=== PATIENT | male | born 1965 | race Caucasian/White ===

== ENCOUNTER 2016-05-26 11:18 | Inpatient (IN) | payer OTHER ==
[~2016-05-26 11:18] MED LIST: ALPR.25 PO; AMLO10 PO; DIFL200T PO; DOXY100C PO; HYDR-3516 PO; IRONCAP2 PO; LACTG PO; LISI-515 PO; VITA100T50 PO
[2016-05-26] MEDS ORDERED: SODIUM CHLOR 0.9% 1000 ML INJ 1,000 ML IV SCH (14:59)
[2016-05-26] MEDS ORDERED: ACETAMINOPHEN/HYDROcodone 325 MG/5 MG TAB PO PRN ×2 (15:00→20:00)
[2016-05-26] MEDS ORDERED: SODIUM CHLORIDE 0.9% FLUSH 5 ML FLUSH FLUSH PRN (15:00)
[2016-05-26] MEDS ORDERED: NALOXONE HCL 0.4 MG/ML AMP IV PRN (15:00)
[2016-05-26] MEDS ORDERED: ACETAMINOPHEN 325 MG TAB PO PRN (15:00)
[2016-05-26] MEDS ORDERED: ALPRAZolam 0.25 MG TAB PO PRN (15:00)
[2016-05-26] MEDS ORDERED: TEMAZEPAM 15 MG CAP PO PRN (15:00)
[2016-05-26 15:15] VITALS: BP 166/98; PULSE 93; RESP 16; TEMP 97; O2SAT 100
[2016-05-26] MEDS: LACTOBACILLUS ACIDOPHILUS 1 GM PACKET PO SCH ×2 (17:36→20:38)
--- NOTE | 2016-05-26 18:12 | HHI.HP ---
[facility] Primary Care Physician No Primary Care Physician Admission Diagnosis Diagnoses: (1) Hematuria (2) Urinary retention (3) Invasive carcinoma of urinary bladder Chief Complaint: Urinary retention, hematuria Travel History International Travel<30 Days: No Contact w/Intl Traveler <30 Da: No History of Present Illness 50-year-old male with a medical history significant for bladder cancer undergoing chemotherapy. The patient has an indwelling Zuniga catheter. He presented to his oncologist office earlier today and was sent to the hospital. The patient reports that he was not having any urine in the bag earlier this morning. He didn't notice jad blood coming out of the bag. He was also experiencing significant lower abdominal pain during this time. The patient denies any fevers or chills. Of note he was admitted to the hospital 10 days ago for jad hematuria and was found to have a UTI. Urine culture grew Breanna and coag negative staph. He was treated with vancomycin and Diflucan. He is currently on a 10 out of 14 days course of doxycycline and Diflucan. Since arrival to the hospital, he is no longer having blood clot in the urine. He is now draining more urine but it is still dark. He denies lightheadedness or heart palpitations. I discussed the case with his oncologist, Dr. Lee who requested consultation with urology. Review of Systems Constitutional: DENIES: Fever, Chills Endocrine: DENIES: Polyuria Eyes: DENIES: Diplopia Ears, nose, mouth, throat: DENIES: Oral lesions Respiratory: DENIES: Cough, Shortness of breath Cardiovascular: DENIES: Chest pain, Dyspnea on Exertion Gastrointestinal: DENIES: Nausea, Vomiting Genitourinary: COMPLAINS OF: Hematuria Musculoskeletal: COMPLAINS OF: Back pain Integumentary: DENIES: Rash Neurologic: DENIES: Headache Psychiatric: DENIES: Mood changes Past Family Social History Past Medical History Bladder CACurrently undergoing chemotherapy with Dr. Lee. Hypertension History of spinal tumorabout 20 years ago. Status post resection. No chemotherapy. No radiation. Neurogenic bladder Past Surgical History Spinal tumor resection Bladder resection Cystoscopies Reported Medications Reported Meds & Active Scripts Active Diflucan (Fluconazole) 200 Mg Tab 200 Mg PO DAILY Doxycycline Hyclate 100 Mg Cap 100 Mg PO BID Lisinopril 20 Mg Tab 20 Mg PO BID 30 Days Floranex (Lactobacillus Acidophilus) 1 Gm Pkt 1 Gm PO QID 14 Days Hydrocodone-Acetaminophen 5-325 mg Tab 1 Tab PO Q6HR PRN Xanax (Alprazolam) 0.25 Mg Tab 0.25 Mg PO Q8H PRN Norvasc (Amlodipine Besylate) 10 Mg Tab 10 Mg PO DAILY Reported Vitamin K (Phytonadione) 100 Mcg Tab 100 Mcg PO DAILY Iron Complex (Iron Combinations) 1 Cap Cap 1 Cap PO DAILY Allergies: Coded Allergies: No Known Allergies (Unverified , 05/09/16) Family History Patient's father has a history of lymphoma. Social History Denies current use of tobacco, alcohol, or illicit drugs. He is a former smoker but reportedly quit after diagnosis of bladder cancer. Physical Exam Vital Signs Vital Signs Date Time Temp Pulse Resp B/P Pulse Ox O2 Delivery O2 Flow Rate FiO2 05/26/16 15:15 97.0 93 16 166/98 100 Physical Exam CONSTITUTIONAL/GENERAL: This is an adequately nourished patient, in no apparent distress. Vital signs reviewed SKIN: No jaundice, rashes, or concerning lesions. Not diaphoretic. HEAD: Atraumatic. Normocephalic. EYES: Pupils equal and round and reactive. Extra ocular motions are intact. No scleral icterus. No injection or drainage. ENT: Hearing grossly normal. Nose without drainage. Throat without visible erythema, exudates, masses, or lesions. NECK: Trachea midline. Neck is supple, non-tender. No palpable thyroid enlargement or nodularity. CARDIOVASCULAR: Normal rate and regular rhythm without murmurs, gallops, or rubs. No JVD. Peripheral pulses 2+ and symmetric. RESPIRATORY/CHEST: Symmetric, unlabored respirations. Breath sounds equal and clear to auscultation bilaterally. No wheezes, crackles, rales, or rhonchi. GASTROINTESTINAL: Abdomen soft, non-tender, non-distended. No hepato- splenomegaly, or palpable masses. No guarding. Bowel sounds present. : Zuniga catheter in place. Draining dark rahul urine. Bag has some old blood clots. MUSCULOSKELETAL: Extremities without clubbing, cyanosis, or edema. No joint tenderness or effusion noted. No calf tenderness. No mottling or clubbing. NEUROLOGICAL: Awake and alert. Motor and sensory grossly within normal limits. Follows commands. Move all extremities spontaneously. No focal deficits. PSYCHIATRIC: No obvious mood problems. No apparent hallucinations or other psychotic thought process. Assessment and Plan Assessment and Plan 50 year old male with indwelling Zuniga secondary to bladder cancer being admitted for recurrent hematuria: Jad hematuria: Appear to be improving. Nursing unable to irrigate the bladder due to the type of catheter. DW RN to monitor output and notify Urology is hematuria returns. - Urology consulted for assistance. Monitor closely. - Will obtain serial H&H every 8 hours. H&H yesterday was stable. - Supportive care with IVF. Monitor I/O Complicated urinary tract infection: Patient currently getting treated. No clear evidence of worsening infection. - Continue doxycycline and Diflucan. Day 10 out of 14 - Repeat a urinalysis and culture if indicated. Bladder cancer: Patient undergoing chemotherapy treatment. - Consult oncologist, Dr. Lee. Hypertension: - Continue lisinopril and amlodipine. Chronic back pain and Anxiety: Continue [place] and Xanax as needed. GI prophylaxis: Stool softener PRN constipation. DVT PPx: SCDs. Discussed Condition With Dr. Lee and RN Physician Certification 2 Midnight Certification Type: Admission for Inpatient Services Order for Inpatient Services The services are ordered in accordance with Medicare regulations or non- Medicare payer requirements, as applicable. In the case of services not specified as inpatient-only, they are appropriately provided as inpatient services in accordance with the 2-midnight benchmark. Estimated LOS (days): 3 days is the estimated time the patient will need to remain in the hospital, assuming treatment plan goals are met and no additional complications. Post-Hospital Plan: Home Sukh Krishna MD May 26, 2016 18:12
--- NOTE | 2016-05-26 19:16 | MB ---
cc: SHAYNE KRISHNA MD, RUBY ANNE E. M.D. DATE OF CONSULTATION 05/26/16 [address] Shayne Krishna. CHIEF COMPLAINT Dr. Krishna requests a consultation for Mr. Henderson regarding locally advanced bladder cancer associated with new gross hematuria. HISTORY OF PRESENT ILLNESS Mr. Henderson is a 50-year-old man with history of neurogenic bladder diagnosed with locally advanced muscle invasive bladder cancer with suspected lymph node involvement. Right pelvic lymph node biopsy, however was nondiagnostic. He was showing response to perioperative/neoadjuvant chemotherapy. He was tolerating it well. His course was complicated by hematuria after a catheter manipulation and was admitted to the hospital on May 02 and was discharged May 17. His hospital course was complicated by hematuria requiring bladder irrigation. He was diagnosed with urinary tract infection with Breanna albicans and staph epidermidis. He was placed on antibiotic therapy and discharged home on doxycycline and Diflucan. Mr. Henderson was seen in clinic yesterday on May 25, 2016. He was due for his next cycle of chemotherapy. However, he was still on his antibiotic therapy. He also was feeling unwell. His hematology recovery seems to be apparent. He was not having hematuria at the time. He had a hemoglobin of 9.5. White count was slightly elevated. Creatinine slightly elevated at 1.29. He had good urine output. Blood cultures and urine cultures were repeated. On the morning of admission, Mr. Henderson complained of worsened pain. It woke him up at four in the morning. He was unable to get comfortable despite the oxycodone. He attributed it to his non Tylenol containing oxycodone. He had nausea, vomiting. He had abdominal pain and he started to see a tinge of blood in his urine and subsequently developed gross hematuria and became oliguric by the time he was seen in clinic in the late morning. In light of the gross hematuria and acute symptoms, his hospital admission was coordinated with Dr. Krishna. His urologist was called. However, Dr. Lee has been away. A call was answered by Dr. Greg Carter. However, Dr. aCrter's office remarked the Dr. Rowan was alumni relations manager on service at the hospital today. Mr. Henderson was given IV fluid hydration antiemetic therapy and pain medication pending his admission. He denies any fever at home. He has a decrease in appetite. He feels unwell. He has a lot of discomfort from his back and his catheter. He denies any headaches, vision changes, no bowel issue. She was quite tachycardiac at the time of evaluation. PAST MEDICAL HISTORY 1. Neurogenic bladder 2. Muscle invasive bladder cancer, 3. Questionable lymph node involvement 4. Chemotherapy induced anemia, 5. Mild renal insufficiency 6. Iron deficiency anemia, 7. Chronic pain. PAST SURGICAL HISTORY 1. Laminectomy 2. Transurethral bladder irrigation 3. Cystoscopy 4. Port placement. FAMILY HISTORY Father had lymphoma. Mother is alive and well. SOCIAL HISTORY Smokes a pack a day. Denies any alcohol or illicit drug use. ALLERGIES NO KNOWN DRUG ALLERGIES. CURRENT MEDICATIONS Include 1. Amlodipine 2. Lisinopril 3. Doxycycline 4. Diflucan 5. Lactinex. 6. Alprazolam 7. Restoril PHYSICAL EXAMINATION VITAL SIGNS: Temperature 97.0, heart rate 93, respiratory rate 16, blood pressure 166/98. His heart rate was in the 130s on admission to the clinic. HEENT: Pupils are round, reactive to light and accommodations. Conjunctivae is pink. Oropharynx is dry. He was mildly hyperemic. NECK: Supple. LUNGS: Clear to auscultation. CARDIOVASCULAR: Tachycardia. ABDOMEN: Benign. Some tenderness in the suprapubic area. EXTREMITIES: Lower extremity with trace edema. LABORATORY DATA White blood cell count 13.0, hemoglobin of 9.5, BUN of 10, creatinine 1.29 from June 04 ASSESSMENT/PLAN Ms. Henderson is a 50-year-old man with history of neurogenic bladder diagnosed invasive bladder cancer receiving perioperative chemotherapy. His course was complicated by urinary tract infection and his chemotherapy has been placed on hold. Mr. Henderson is admitted acutely for gross hematuria. His case was discussed with Dr. Carter who plans to change his catheter. Bladder irrigation is being planned. His renal function will be monitored. He will be transfused for a hemoglobin less than 8 or symptoms. Antiemetic therapy support will be provided. He is appearing to clear his urinary tract infection as his 24 culture from the urine was negative so far. We will monitor closely for fevers. His Diflucan and doxycycline continue as planned. Continue supportive treatment. We plan to support him until the hematuria is resolved and we can initiate and continue preoperative chemotherapy. His acute problem of his hydronephrosis hematuria will be addressed. Pain medication will be optimized. His blood pressure will be monitored. MD MAYE Nunez/ /6:38 PM /6:59 PM
[2016-05-26 20:00] VITALS: BP 153/86; PULSE 94; RESP 18; TEMP 98.1; O2SAT 100
[2016-05-26] MEDS: LISINOPRIL 20 MG TAB PO SCH (20:31)
[2016-05-26] MEDS: ACETAMINOPHEN/HYDROcodone 325 MG/10 MG TAB PO PRN (20:32)
[2016-05-26] MEDS: FLUCONAZOLE 200 MG TAB PO SCH (20:32)
[2016-05-26] MEDS: DOXYCYCLINE HYCLATE 100 MG CAP PO SCH (20:33)
[2016-05-26] MEDS: SODIUM CHLORIDE 0.9% FLUSH 5 ML FLUSH FLUSH SCH (20:33)
[2016-05-26 21:42] LABS: REVIEW FLAG FINAL
[2016-05-27] VITALS (9 sets, daily range): BP systolic 131–167; BP diastolic 71–100; PULSE 78–88; RESP 16–17; TEMP 95.2–98.6; O2SAT 94–100
[2016-05-27] MEDS: ACETAMINOPHEN/HYDROcodone 325 MG/10 MG TAB PO PRN ×5 (04:36→21:59)
[2016-05-27 07:13] LABS: AUTOMATED NEUTROPHIL # 5.8 TH/MM3 (1.8-7.7); BASOPHIL % 0.5 % (0.0-2.0); EOSINOPHIL # 0.2 TH/MM3 (0-0.4); EOSINOPHIL % 2.5 % (0.0-4.0); LYMPH % 18.2 % (9.0-44.0); LYMPHOCYTE # 1.5 TH/MM3 (1.0-4.8); MEAN CELL VOLUME 90.6 FL (80.0-100.0); MEAN CORPUSCULAR HEMOGLOBIN 31.2 PG (27.0-34.0); MEAN CORPUSCULAR HGB CONC 34.4 % (32.0-36.0); MONO % 8.6 % (0.0-8.0); NEUT % 70.2 % (16.0-70.0); PLATELET COUNT 121 TH/MM3 (150-450); RED BLOOD COUNT 2.23 MIL/MM3 (4.50-5.90); RED CELL DISTRIBUTION WIDTH 18.5 % (11.6-17.2); WHITE BLOOD COUNT 8.3 TH/MM3 (4.0-11.0)
[2016-05-27 07:29] LABS: BICARBONATE 26.9 MEQ/L (21.0-32.0); POTASSIUM 3.6 MEQ/L (3.5-5.1)
[2016-05-27 08:00] LABS: HEMATOCRIT 20.2 % (39.0-51.0); HEMO FLAGS AUTO DIFF
[2016-05-27] MEDS: SODIUM CHLORIDE 0.9% FLUSH 5 ML FLUSH FLUSH SCH ×2 (08:01→19:22)
[2016-05-27] MEDS: LACTOBACILLUS ACIDOPHILUS 1 GM PACKET PO SCH ×4 (08:01→19:21)
[2016-05-27] MEDS: LISINOPRIL 20 MG TAB PO SCH ×2 (08:01→19:25)
[2016-05-27] MEDS: FLUCONAZOLE 200 MG TAB PO SCH (08:01)
[2016-05-27] MEDS: DOXYCYCLINE HYCLATE 100 MG CAP PO SCH ×2 (08:01→19:21)
[2016-05-27 08:52] LABS: SCAN/DIFF AUTO DIFF CONFIRMED
[2016-05-27 08:53] LABS: PLATELET ESTIMATE SMEAR LOW (NORMAL); PLATELET MORPHOLOGY NORMAL (NORMAL)
[2016-05-27] MEDS ORDERED: FLUCONAZOLE 200 MG TAB PO SCH (09:00)
[2016-05-27] MEDS ORDERED: [UNRECOGNIZED DRUG - OTHER] PO SCH (09:00)
[2016-05-27] MEDS ORDERED: VITAMIN K 100 MCG PO SCH (09:00)
[2016-05-27] MEDS ORDERED: PHYTONADIONE 100 MCG PO SCH (09:00)
[2016-05-27] MEDS ORDERED: IRON COMBINATIONS PO SCH (09:00)
[2016-05-27] MEDS ORDERED: SODIUM CHLOR 0.9% 250 ML INJ 250 ML IV ONE (10:00)
--- NOTE | 2016-05-27 10:13 | HHI.PR ---
Subjective Remarks Patient seen in follow-up for hematuria, bladder cancer, UTI. He reports that his urine is draining better. Hematuria significantly improved. Urine clearing up. His H&H dropped to 6.9/20.2. And also occasional heart palpitation. Objective Vitals Vital Signs Date Time Temp Pulse Resp B/P Pulse Ox O2 Delivery O2 Flow Rate FiO2 05/27/16 08:00 97.8 85 16 159/100 94 05/27/16 06:01 20 05/27/16 04:00 97.8 88 17 146/78 96 05/27/16 00:00 98.3 83 17 131/77 96 05/26/16 20:00 98.1 94 18 153/86 100 05/26/16 15:15 97.0 93 16 166/98 100 I/O 05/26/16 05/26/16 05/26/16 05/27/16 05/27/16 05/27/16 07:00 15:00 23:00 07:00 15:00 23:00 Intake Total 1503 ml Output Total 1525 ml 950 ml Balance -1525 ml 553 ml Intake IV Total 1503 ml Output Urine Total 1525 ml 950 ml # Bowel Movements 0 Result Diagram: 05/27/16 0440 05/27/16 0440 Objective Remarks GENERAL: This is a well-nourished, well-developed patient, in no apparent distress. CARDIOVASCULAR: Tachycardic in the 105, regular rhythm without murmurs, gallops , or rubs. RESPIRATORY: Good respiratory efforts. Breath sounds equal and clear to auscultation bilaterally. GASTROINTESTINAL: Abdomen soft, non-tender, non-distended. Normal active bowel sounds MUSCULOSKELETAL: Extremities without cyanosis, or edema. NEURO: Alert & Oriented x4 to person, place, time, situation. Moves all ext x4 PSYCH: Appropriate mood and affect. A/P Problem List: (1) Hematuria ICD Code: R31.9 Status: Resolved (2) Urinary retention ICD Code: R33.9 Status: Acute (3) Invasive carcinoma of urinary bladder ICD Code: C67.9 Status: Acute Assessment and Plan 50 year old male with indwelling Zuniga secondary to bladder cancer being admitted for recurrent hematuria: Sadiq hematuria: Resolving. -Appreciate urology following. Continue with Zuniga. Per urology patient should use a bigger drainage bag at home. Outpatient follow-up with Dr. Lee as scheduled. - Supportive care with IVF. Monitor I/O Anemia of acute blood loss: Secondary to above which is improving. - We'll transfuse 2 units of PRBC. Follow-up H&H in the morning. Acute renal insufficiency: Likely secondary to previous obstruction and volume depletion/anemia. - Start IV fluid. Follow BMP in the morning. Complicated urinary tract infection: Patient currently getting treated. No clear evidence of worsening infection. - Continue doxycycline and Diflucan. Day 11 out of 14 Bladder cancer: Patient undergoing chemotherapy treatment. -Appreciate oncologist, Dr. Lee following. Plan to resume chemotherapy once he is over his current acute illness. Hypertension: - Continue lisinopril and amlodipine. Chronic back pain and Anxiety: Continue [place] and Xanax as needed. GI prophylaxis: Stool softener PRN constipation. DVT PPx: SCDs. Sukh Krishna MD May 27, 2016 10:13
--- NOTE | 2016-05-27 10:15 | PD.CONS ---
HPI Service Urology Consult Requested By Primary Care Physician No Primary Care Physician Diagnosis: (1) Hematuria ICD Code: R31.9 (2) Urinary retention ICD Code: R33.9 (3) Invasive carcinoma of urinary bladder ICD Code: C67.9 History of Present Illness 50 year-old gentleman with recent diagnosis of locally advanced muscle invasive bladder cancer with suspected lymph node involvement who is presently undergoing neoadjuvant chemotherapy prior to planned radical cystectomy by Dr. Eulogio Lee. Patient has been managed with an indwelling Zuniga catheter and has had problems with recurrent hematuria since his diagnosis was made. Patient admitted for a poorly draining Zuniga catheter and anemia exacerbated by the hematuria. Patient was also recently diagnosed with a urinary tract infection that included Breanna albicans and Staphylococcus epididymis and is presently on a regimen of doxycycline and Diflucan. At the time of consultation the hematuria had resolved and Zuniga catheter was draining rahul colored urine without clots. He has had 2 units of packed red blood cells ordered for his low hematocrit of 20.2 Review of Systems Constitutional: DENIES: Fever, Chills Genitourinary: COMPLAINS OF: Hematuria Musculoskeletal: DENIES: Back pain Past Family Social History Past Medical History Muscle invasive bladder cancer Neurogenic bladder Anemia Mild renal insufficiency Past Surgical History Status post open cystotomy with clot evacuation and placement of suprapubic catheter. Status post laminectomy Status post port placement Reported Medications Refer to EMR Allergies: Coded Allergies: No Known Allergies (Unverified , 05/09/16) Active Ordered Medications Refer to EMR Family History Father with history lymphoma Social History Smoker one pack per day Denies alcohol or illicit drug abuse Physical Exam Vital Signs Vital Signs Date Time Temp Pulse Resp B/P Pulse Ox O2 Delivery O2 Flow Rate FiO2 05/27/16 08:00 97.8 85 16 159/100 94 05/27/16 06:01 20 05/27/16 04:00 97.8 88 17 146/78 96 05/27/16 00:00 98.3 83 17 131/77 96 05/26/16 20:00 98.1 94 18 153/86 100 05/26/16 15:15 97.0 93 16 166/98 100 Physical Exam GENERAL: This is a well-nourished, well-developed patient, in no apparent distress. SKIN: No rashes, ecchymoses or lesions. Cool and dry. HEAD: Atraumatic. Normocephalic. No temporal or scalp tenderness. EYES: Pupils equal round and reactive. Extraocular motions intact. No scleral icterus. No injection or drainage. ENT: Nose without bleeding, purulent drainage or septal hematoma. Throat without erythema, tonsillar hypertrophy or exudate. Uvula midline. Airway patent. NECK: Trachea midline. No JVD or lymphadenopathy. Supple, nontender, no meningeal signs. GASTROINTESTINAL: Abdomen soft, non-tender, nondistended. No hepato-splenomegaly , or palpable masses. No guarding. : Zuniga catheter in place draining rahul urine, bladder not distended. MUSCULOSKELETAL: Extremities without clubbing, cyanosis, or edema. No joint tenderness, effusion, or edema noted. No calf tenderness. Negative Homans sign bilaterally. NEUROLOGICAL: Awake and alert. Cranial nerves II through XII intact. Motor and sensory grossly within normal limits. Five out of 5 muscle strength in all muscle groups. Normal speech. Laboratory Laboratory Tests Test 05/26/16 05/27/16 20:32 04:40 Hemoglobin 7.3 6.9 Hematocrit 21.0 20.2 White Blood Count 8.3 Red Blood Count 2.23 Mean Corpuscular Volume 90.6 Mean Corpuscular Hemoglobin 31.2 Mean Corpuscular Hemoglobin 34.4 Concent Red Cell Distribution Width 18.5 Platelet Count 121 Mean Platelet Volume 7.3 Neutrophils (%) (Auto) 70.2 Lymphocytes (%) (Auto) 18.2 Monocytes (%) (Auto) 8.6 Eosinophils (%) (Auto) 2.5 Basophils (%) (Auto) 0.5 Neutrophils # (Auto) 5.8 Lymphocytes # (Auto) 1.5 Monocytes # (Auto) 0.7 Eosinophils # (Auto) 0.2 Basophils # (Auto) 0.0 CBC Comment AUTO DIFF Differential Comment AUTO DIFF CONFIRMED Platelet Estimate LOW Platelet Morphology Comment NORMAL Sodium Level 146 Potassium Level 3.6 Chloride Level 110 Carbon Dioxide Level 26.9 Anion Gap 9 Blood Urea Nitrogen 14 Creatinine 1.50 Estimat Glomerular Filtration 50 Rate Random Glucose 95 Calcium Level 8.4 Result Diagram: 05/27/1643905/27/16439 Assessment and Plan Assessment and Plan Urologic impression: #1 bladder cancer with suspected lymph node involvement #2 recurrent gross hematuria now resolving Recommendations: #1 continue with Zuniga catheter to gravity drainage #2 advised patient to use a large drainage bag while at home to facilitate bladder emptying #3 continue with neoadjuvant chemotherapy #4 continue with Diflucan and doxycycline until full course of therapy completed #5 office follow up with Dr. Lee as previously arranged Greg Carter MD May 27, 2016 10:15
--- NOTE | 2016-05-27 11:31 | PD.ONC.PN ---
Subjective Subjective Remarks Afebrile overnight. Patient resting comfortably. He denies nausea. The hematuria has significantly improved. Objective Data Date Time Temp Pulse Resp B/P Pulse Ox O2 Delivery O2 Flow Rate FiO2 05/27/16 08:00 97.8 85 16 159/100 94 05/27/16 06:01 20 05/27/16 04:00 97.8 88 17 146/78 96 05/27/16 00:00 98.3 83 17 131/77 96 05/26/16 20:00 98.1 94 18 153/86 100 05/26/16 15:15 97.0 93 16 166/98 100 05/27/16 05/27/16 05/27/16 07:00 15:00 23:00 Intake Total 1503 ml Output Total 950 ml Balance 553 ml Result Diagram: 05/27/160 05/27/16 044 Laboratory Results Laboratory Tests Test 05/26/16 05/27/16 20:32 04:40 Hemoglobin 7.3 GM/DL 6.9 GM/DL Hematocrit 21.0 % 20.2 % White Blood Count 8.3 TH/MM3 Red Blood Count 2.23 MIL/MM3 Mean Corpuscular Volume 90.6 FL Mean Corpuscular Hemoglobin 31.2 PG Mean Corpuscular Hemoglobin 34.4 % Concent Red Cell Distribution Width 18.5 % Platelet Count 121 TH/MM3 Mean Platelet Volume 7.3 FL Neutrophils (%) (Auto) 70.2 % Lymphocytes (%) (Auto) 18.2 % Monocytes (%) (Auto) 8.6 % Eosinophils (%) (Auto) 2.5 % Basophils (%) (Auto) 0.5 % Neutrophils # (Auto) 5.8 TH/MM3 Lymphocytes # (Auto) 1.5 TH/MM3 Monocytes # (Auto) 0.7 TH/MM3 Eosinophils # (Auto) 0.2 TH/MM3 Basophils # (Auto) 0.0 TH/MM3 CBC Comment AUTO DIFF Differential Comment AUTO DIFF CONFIRMED Platelet Estimate LOW Platelet Morphology Comment NORMAL Sodium Level 146 MEQ/L Potassium Level 3.6 MEQ/L Chloride Level 110 MEQ/L Carbon Dioxide Level 26.9 MEQ/L Anion Gap 9 MEQ/L Blood Urea Nitrogen 14 MG/DL Creatinine 1.50 MG/DL Estimat Glomerular Filtration 50 ML/MIN Rate Random Glucose 95 MG/DL Calcium Level 8.4 MG/DL Administered Medications Medications (Trade) Dose Ordered Sig/Ambika Route PRN Reason Start Time Stop Time Status Last Admin Dose Admin Amlodipine Besylate (Norvasc) 10 mg DAILY PO 05/27/16 09:00 05/27/16 08:01 Lactobacillus Acidophilus (Lactinex Pkt) 1 gm QID PO 05/26/16 18:00 05/27/16 08:01 Lisinopril (Prinivil) 20 mg BID PO 05/26/16 21:00 05/27/16 08:01 IV Flush (NS Flush) 2 ml BID FLUSH 05/26/16 21:00 05/27/16 08:01 Doxycycline Hyclate (Vibramycin) 100 mg BID PO 05/26/16 21:00 05/27/16 08:01 Fluconazole (Diflucan) 200 mg DAILY PO 05/26/16 18:30 05/27/16 08:01 Acetaminophen/ Hydrocodone Bitart ([place] 10-325 Mg) 1 tab Q4H PRN PO PAIN GREATER THAN 5 05/26/16 19:00 05/27/16 08:17 Objective Remarks GENERAL: Middle aged male, lying in bed in [facility]. SKIN: Warm and dry. HEAD: Normocephalic. EYES: No scleral icterus. No injection or drainage. NECK: Supple, trachea midline. CARDIOVASCULAR: Regular rate and rhythm RESPIRATORY: Breath sounds equal bilaterally. No accessory muscle use. GASTROINTESTINAL: Abdomen soft, non-tender, nondistended. EXTREMITIES: No cyanosis NEUROLOGICAL: No obvious focal deficit. Awake, alert, and oriented x3. blanc[place] to gravity: bag filled with rahul colored urine. Assessment/Plan Problem List: (1) Invasive carcinoma of urinary bladder Status: Acute Plan: --plan to resume chemotherapy once UTI resolved. --history of neurogenic bladder diagnosed invasive bladder cancer receiving perioperative chemotherapy. --course was complicated by urinary tract infection and his chemotherapy has been placed on hold. (2) Anemia due to blood loss Status: Acute Plan: 05/27/16: agree with transfusion 1 unit pRBC today --transfuse for hemoglobin less than 8 or symptoms (3) Urinary tract infection Status: Acute Plan: --on Doxycycline and Diflucan --most recent urine culture from 05/25/16 is without growth. Assessment 50y/o male with locally advanced bladder cancer associated with new gross hematuria, hematuria now improving. Plan 1. continue doxycycline + Diflucan 2. monitor CBC, agree with 1 unit pRBC 3. supportive care. Attending Statement The exam, history, and the medical decision-making described in the above note were completed with the assistance of the mid-level provider. I reviewed and agree with the findings presented. I attest that I had a [id number] encounter with the patient on the same day, and personally performed and documented my assessment and findings in the medical record. Pt seen and examined. Hematuria resolved, tolerating blood transfusion. Pain controlled. IVF hydration on going. Follow over night, anticipate DC tomorrow. SAIRA DONN. Jesika Wilkes May 27, 2016 11:31 Idalia Lee MD May 27, 2016 18:14
[2016-05-27] MEDS: D5-1/2 NS + KCL 10 MEQ INJ 1,000 ML IV SCH (19:22)
[2016-05-28] VITALS: BP 147/78; PULSE 85; RESP 16; TEMP 97.6; O2SAT 98
[2016-05-28 01:38] LABS: HEMATOCRIT 24.2 % (39.0-51.0); MEAN CELL VOLUME 87.7 FL (80.0-100.0); MEAN CORPUSCULAR HEMOGLOBIN 30.9 PG (27.0-34.0); MEAN CORPUSCULAR HGB CONC 35.3 % (32.0-36.0); PLATELET COUNT 121 TH/MM3 (150-450); RED BLOOD COUNT 2.76 MIL/MM3 (4.50-5.90); RED CELL DISTRIBUTION WIDTH 17.6 % (11.6-17.2); REVIEW FLAG FINAL; WHITE BLOOD COUNT 9.1 TH/MM3 (4.0-11.0)
[2016-05-28 01:59] LABS: BICARBONATE 30.3 MEQ/L (21.0-32.0); POTASSIUM 3.7 MEQ/L (3.5-5.1)
[2016-05-28 03:02] VITALS: BP 136/80; PULSE 82; RESP 17; TEMP 96.9; O2SAT 96
[2016-05-28] MEDS: D5-1/2 NS + KCL 10 MEQ INJ 1,000 ML IV SCH ×2 (03:13→11:06)
[2016-05-28] MEDS: ACETAMINOPHEN/HYDROcodone 325 MG/10 MG TAB PO PRN ×4 (03:13→19:17)
[2016-05-28 08:00] VITALS: BP 163/93; PULSE 84; RESP 18; TEMP 99.3; O2SAT 99
[2016-05-28] MEDS: SODIUM CHLORIDE 0.9% FLUSH 5 ML FLUSH FLUSH SCH ×2 (08:50→19:18)
[2016-05-28] MEDS: LISINOPRIL 20 MG TAB PO SCH ×2 (08:52→19:33)
[2016-05-28] MEDS: DOXYCYCLINE HYCLATE 100 MG CAP PO SCH ×2 (08:52→19:17)
[2016-05-28] MEDS: FLUCONAZOLE 200 MG TAB PO SCH (08:52)
--- NOTE | 2016-05-28 10:46 | PD.ONC.PN ---
Subjective Subjective Remarks Hematuria this AM. Still feels tired. Tolerated transfusion. Objective Data Date Time Temp Pulse Resp B/P Pulse Ox O2 Delivery O2 Flow Rate FiO2 05/28/16 08:00 99.3 84 18 163/93 99 05/28/16 04:40 19 05/28/16 03:02 96.9 82 17 136/80 96 05/28/16 00:00 97.6 85 16 147/78 98 05/27/16 19:02 97.8 87 17 153/82 96 05/27/16 17:15 97.6 88 16 167/83 99 05/27/16 16:44 97.6 87 16 150/84 100 05/27/16 14:15 98.6 88 16 143/71 98 05/27/16 13:51 98.3 88 16 155/77 98 05/27/16 12:00 95.2 78 16 151/77 99 05/28/16 05/28/16 05/28/16 07:00 15:00 23:00 Intake Total 1084 ml Output Total 1200 ml 1000 ml Balance -116 ml -1000 ml Result Diagram: 05/28/16 0050 05/28/16 0050 Laboratory Results Laboratory Tests Test 05/27/16 05/28/16 11:21 00:50 Blood Type B POSITIVE Antibody Screen NEGATIVE Crossmatch Leukocyte-Reduced Red Blood Cells Blood Bank Comment White Blood Count 9.1 TH/MM3 Red Blood Count 2.76 MIL/MM3 Hemoglobin 8.5 GM/DL Hematocrit 24.2 % Mean Corpuscular Volume 87.7 FL Mean Corpuscular Hemoglobin 30.9 PG Mean Corpuscular Hemoglobin 35.3 % Concent Red Cell Distribution Width 17.6 % Platelet Count 121 TH/MM3 Mean Platelet Volume 7.3 FL Sodium Level 147 MEQ/L Potassium Level 3.7 MEQ/L Chloride Level 110 MEQ/L Carbon Dioxide Level 30.3 MEQ/L Anion Gap 7 MEQ/L Blood Urea Nitrogen 14 MG/DL Creatinine 1.63 MG/DL Estimat Glomerular Filtration 45 ML/MIN Rate Random Glucose 92 MG/DL Calcium Level 8.4 MG/DL Administered Medications Medications (Trade) Dose Ordered Sig/Ambika Route PRN Reason Start Time Stop Time Status Last Admin Dose Admin Alprazolam (Xanax) 0.25 mg Q8H PRN PO ANXIETY 05/26/16 15:00 05/27/16 18:20 Amlodipine Besylate (Norvasc) 10 mg DAILY PO 05/27/16 09:00 05/28/16 08:52 Lactobacillus Acidophilus (Lactinex Pkt) 1 gm QID PO 05/26/16 18:00 05/27/16 19:21 Lisinopril (Prinivil) 20 mg BID PO 05/26/16 21:00 05/28/16 08:52 IV Flush (NS Flush) 2 ml BID FLUSH 05/26/16 21:00 05/27/16 19:22 Doxycycline Hyclate (Vibramycin) 100 mg BID PO 05/26/16 21:00 05/28/16 08:52 Fluconazole (Diflucan) 200 mg DAILY PO 05/26/16 18:30 05/28/16 08:52 Acetaminophen/ Hydrocodone Bitart 1 tab 1 tab Q4H PRN PO PAIN GREATER THAN 5 05/26/16 19:00 05/28/16 08:50 Potassium Chloride/Dextrose/ Sod Cl (D5-1/2 NS + KCl 10 Meq Inj) 1,000 ml @ 125 mls/hr Q8H IV 05/27/16 10:15 05/28/16 03:13 Objective Remarks GENERAL: Middle aged male, lying in bed in nad. SKIN: Warm and dry. HEAD: Normocephalic. EYES: No scleral icterus. No injection or drainage. NECK: Supple, trachea midline. CARDIOVASCULAR: Regular rate and rhythm RESPIRATORY: Breath sounds equal bilaterally. No accessory muscle use. GASTROINTESTINAL: Abdomen soft, non-tender, nondistended. EXTREMITIES: No cyanosis NEUROLOGICAL: No obvious focal deficit. Awake, alert, and oriented x3. Zuniga with blood tinged urine. Assessment/Plan Problem List: (1) Invasive carcinoma of urinary bladder Status: Acute Plan: 05/28/16. Chemo held due to acute hematuria, resolved, and recurrence of mild hematuria this AM. --plan to resume chemotherapy once UTI resolved. --history of neurogenic bladder diagnosed invasive bladder cancer receiving perioperative chemotherapy. --course was complicated by urinary tract infection and his chemotherapy has been placed on hold. (2) Anemia due to blood loss Status: Acute Plan: 05/28/16. Still anemic. Follow resolution of hematuria, if worsen may need additional unit blood transfusion. Unable to give DVT prophylaxis. Advised to ambulate or to move legs in bed. 05/27/16: agree with transfusion 1 unit pRBC today --transfuse for hemoglobin less than 8 or symptoms (3) Urinary tract infection Status: Acute Plan: 05/28/16. Culture still neg 05/25/16. Abx continue. --on Doxycycline and Diflucan --most recent urine culture from 05/25/16 is without growth. Assessment 50y/o male with locally advanced bladder cancer associated with new gross hematuria, hematuria now improving. Plan 1. continue doxycycline + Diflucan 2. Continue IVF hydration. 3. supportive care. 4. Check CBC in AM transfuse for symptoms for hgb<8.0 5. Pain meds prn 6. Encourage to ambulate or sit up side of bed. Idalia Lee MD May 28, 2016 10:46
[2016-05-28] MEDS: LACTOBACILLUS ACIDOPHILUS 1 GM PACKET PO SCH ×4 (11:03→19:18)
[2016-05-28 12:00] VITALS: BP 162/90; PULSE 88; RESP 20; TEMP 98; O2SAT 99
--- NOTE | 2016-05-28 13:33 | HHI.PR ---
Subjective Remarks Patient seen in follow-up for hematuria, bladder cancer, UTI. Patient had some mild hematuria earlier this morning again. It is not clearing up. He has no new complaints. Objective Vitals Vital Signs Date Time Temp Pulse Resp B/P Pulse Ox O2 Delivery O2 Flow Rate FiO2 05/28/16 08:00 99.3 84 18 163/93 99 05/28/16 04:40 19 05/28/16 03:02 96.9 82 17 136/80 96 05/28/16 00:00 97.6 85 16 147/78 98 05/27/16 19:02 97.8 87 17 153/82 96 05/27/16 17:15 97.6 88 16 167/83 99 05/27/16 16:44 97.6 87 16 150/84 100 05/27/16 14:15 98.6 88 16 143/71 98 05/27/16 13:51 98.3 88 16 155/77 98 I/O 05/27/16 05/27/16 05/27/16 05/28/16 05/28/16 05/28/16 07:00 15:00 23:00 07:00 15:00 23:00 Intake Total 1503 ml 720 ml 1739 ml 1084 ml 240 ml Output Total 950 ml 1850 ml 1200 ml 1600 ml Balance 553 ml -1130 ml 1739 ml -116 ml -1360 ml Intake Oral 720 ml 240 ml IV Total 1503 ml 1739 ml 1084 ml Output Urine Total 950 ml 1850 ml 1200 ml 1600 ml # Bowel Movements 0 0 Result Diagram: 05/28/16 0050 05/28/16 0050 Objective Remarks GENERAL: This is a well-nourished, well-developed patient, in no apparent distress. CARDIOVASCULAR: Normal rate, regular rhythm without murmurs, gallops, or rubs. RESPIRATORY: Good respiratory efforts. Breath sounds equal and clear to auscultation bilaterally. GASTROINTESTINAL: Abdomen soft, non-tender, non-distended. Normal active bowel sounds MUSCULOSKELETAL: Extremities without cyanosis, or edema. NEURO: Alert & Oriented x4 to person, place, time, situation. Moves all ext x4 PSYCH: Appropriate mood and affect. A/P Problem List: (1) Hematuria ICD Code: R31.9 Status: Resolved (2) Urinary retention ICD Code: R33.9 Status: Acute (3) Invasive carcinoma of urinary bladder ICD Code: C67.9 Status: Acute Assessment and Plan 50 year old male with indwelling Zuniga secondary to bladder cancer being admitted for recurrent hematuria: Sadiq hematuria: Resolving. Recurred. Resolving again. -Appreciate urology following. Continue with Zuniga. Per urology patient should use a bigger drainage bag at home. Outpatient follow-up with Dr. Lee as scheduled. - Supportive care with IVF. Monitor I/O Anemia of acute blood loss: Status post 2 units of PRBC on 05/28/16 -Follow-up H&H in the morning. Transfuse for hemoglobin less than 8. Appreciate hematology following. Acute renal insufficiency: Likely secondary to previous obstruction and volume depletion/anemia. -Continue IV fluid. Change to D5 W at 150 cc per hour. Complicated urinary tract infection: Patient currently getting treated. No clear evidence of worsening infection. - Continue doxycycline and Diflucan. Day 12 out of 14 Bladder cancer: Patient undergoing chemotherapy treatment. -Appreciate oncologist, Dr. Lee following. Plan to resume chemotherapy once he is over his current acute illness. Hypertension: - Continue lisinopril and amlodipine. Chronic back pain and Anxiety: Continue [place] and Xanax as needed. GI prophylaxis: Stool softener PRN constipation. DVT PPx: SCDs. Sukh Krishna MD May 28, 2016 13:33
[2016-05-28] MEDS: DEXTROSE 5% IN WATE 1000ML INJ 1,000 ML IV SCH ×2 (13:45→19:28)
[2016-05-28 16:00] VITALS: BP 166/90; PULSE 84; RESP 20; TEMP 97.6; O2SAT 97
[2016-05-28 20:00] VITALS: BP 170/87; PULSE 93; RESP 18; TEMP 98.3; O2SAT 100
[2016-05-29] VITALS: BP 169/90; PULSE 86; RESP 16; TEMP 97.8; O2SAT 95
[2016-05-29] MEDS: ACETAMINOPHEN/HYDROcodone 325 MG/10 MG TAB PO PRN ×2 (03:28→09:34)
[2016-05-29] MEDS: DEXTROSE 5% IN WATE 1000ML INJ 1,000 ML IV SCH ×2 (03:28→09:45)
[2016-05-29 04:00] VITALS: BP_SYST 176; BP_SYST 177; BP_DIAS 84; BP_DIAS 91; PULSE 87; RESP 18; TEMP 97.7; O2SAT 99
[2016-05-29] MEDS ORDERED: cloNIDine HCL 0.1 MG TAB PO ONE (04:15)
[2016-05-29 06:15] LABS: HEMATOCRIT 25.6 % (39.0-51.0); MEAN CELL VOLUME 87.6 FL (80.0-100.0); MEAN CORPUSCULAR HEMOGLOBIN 30.6 PG (27.0-34.0); PLATELET COUNT 128 TH/MM3 (150-450); RED BLOOD COUNT 2.92 MIL/MM3 (4.50-5.90); RED CELL DISTRIBUTION WIDTH 17.5 % (11.6-17.2); REVIEW FLAG FINAL; WHITE BLOOD COUNT 10.2 TH/MM3 (4.0-11.0)
[2016-05-29 06:23] LABS: BICARBONATE 25.6 MEQ/L (21.0-32.0); POTASSIUM 3.3 MEQ/L (3.5-5.1)
[2016-05-29 06:43] VITALS: BP 158/85
[2016-05-29 08:00] VITALS: BP 174/92; PULSE 88; RESP 20; TEMP 97.1; O2SAT 97
[2016-05-29] MEDS ORDERED: HYDR-2374 PO (09:04)
--- NOTE | 2016-05-29 09:05 | HHI.DS ---
Discharge Summary Admission Date May 26, 2016 at 11:18 Discharge Date: May 29, 2016 Admitting Diagnosis (1) Hematuria ICD Code: R31.9 (2) Urinary retention ICD Code: R33.9 (3) Invasive carcinoma of urinary bladder ICD Code: C67.9 Procedures None Brief History - From Admission 50-year-old male with a medical history significant for bladder cancer undergoing chemotherapy. The patient has an indwelling Zuniga catheter. He presented to his oncologist office earlier today and was sent to the hospital. The patient reports that he was not having any urine in the bag earlier this morning. He didn't notice jad blood coming out of the bag. He was also experiencing significant lower abdominal pain during this time. The patient denies any fevers or chills. Of note he was admitted to the hospital 10 days ago for jad hematuria and was found to have a UTI. Urine culture grew Breanna and coag negative staph. He was treated with vancomycin and Diflucan. He is currently on a 10 out of 14 days course of doxycycline and Diflucan. Since arrival to the hospital, he is no longer having blood clot in the urine. He is now draining more urine but it is still dark. He denies lightheadedness or heart palpitations. I discussed the case with his oncologist, Dr. Lee who requested consultation with urology. CBC/BMP: 05/29/16 0358 05/29/16 0358 Significant Findings Laboratory Tests Test 05/26/16 05/27/16 05/28/16 05/29/16 20:32 04:40 00:50 03:58 Hemoglobin 7.3 GM/DL 6.9 GM/DL 8.5 GM/DL 9.0 GM/DL (13.0-17.0) (13.0-17.0) (13.0-17.0) (13.0-17.0) Hematocrit 21.0 % 20.2 % 24.2 % 25.6 % (39.0-51.0) (39.0-51.0) (39.0-51.0) (39.0-51.0) Red Blood Count 2.23 MIL/MM3 2.76 MIL/MM3 2.92 MIL/MM3 (4.50-5.90) (4.50-5.90) (4.50-5.90) Red Cell Distribution Width 18.5 % 17.6 % 17.5 % (11.6-17.2) (11.6-17.2) (11.6-17.2) Platelet Count 121 TH/MM3 121 TH/MM3 128 TH/MM3 (150-450) (150-450) (150-450) Neutrophils (%) (Auto) 70.2 % (16.0-70.0) Monocytes (%) (Auto) 8.6 % (0.0-8.0) Platelet Estimate LOW (NORMAL) Sodium Level 146 MEQ/L 147 MEQ/L (136-145) (136-145) Chloride Level 110 MEQ/L 110 MEQ/L (98-107) (98-107) Creatinine 1.50 MG/DL 1.63 MG/DL 1.67 MG/DL (0.60-1.30) (0.60-1.30) (0.60-1.30) Estimat Glomerular Filtration 50 ML/MIN (>89) 45 ML/MIN (>89) 44 ML/MIN (>89) Rate Calcium Level 8.4 MG/DL 8.4 MG/DL 8.2 MG/DL (8.5-10.1) (8.5-10.1) (8.5-10.1) Potassium Level 3.3 MEQ/L (3.5-5.1) PE at Discharge GENERAL: This is a well-nourished, well-developed patient, in no apparent distress. CARDIOVASCULAR: Normal rate, regular rhythm without murmurs, gallops, or rubs. RESPIRATORY: Good respiratory efforts. Breath sounds equal and clear to auscultation bilaterally. GASTROINTESTINAL: Abdomen soft, non-tender, non-distended. Normal active bowel sounds MUSCULOSKELETAL: Extremities without cyanosis, or edema. NEURO: Alert & Oriented x4 to person, place, time, situation. Moves all ext x4 PSYCH: Appropriate mood and affect. Pt update on day of discharge Patient's urine is clear. States he is ready to go home. Hospital Course 50 year old male with indwelling Zuniga secondary to bladder cancer admitted for recurrent hematuria. Evaluation and treatment course detailed below: Jad hematuria: Resolving. Recurred. Resolving again. -Appreciate urology following. Continue with Zuniga. Per urology patient should use a bigger drainage bag at home. Outpatient follow-up with Dr. Lee as scheduled. Anemia of acute blood loss: Status post 2 units of PRBC on 05/28/16 -Follow-up H&H remained stable. Patient was followed by Urology Acute renal insufficiency: Likely secondary to previous obstruction and volume depletion/anemia. Patient treated with IVF. Renal function stable but did not return to normal. Suspect some ongoing damage due to hydronephrosis from the obstruction. Outpatient follow up labs and with Urology as scheduled Complicated urinary tract infection: Patient was on treatment prio to admission. He will continue same to complete the course tomorrow. - Continue doxycycline and Diflucan until completion on 05/30/16 Bladder cancer: Patient undergoing chemotherapy treatment. -Appreciate oncologist, Dr. Lee following. Plan to resume chemotherapy next week. Hypertension: - Continue lisinopril and amlodipine. Chronic back pain and Anxiety: Continue [place] and Xanax as needed. Pt Condition on Discharge: Stable Discharge Disposition: Discharge Home Discharge Time: <= 30 minutes Discharge Instructions DIET: Follow Instructions for: Heart Healthy Diet Additional Diet Instructions: Drink Plenty of fluid Activities you can perform: Regular-No Restrictions Changed Medications: Hydrocodone-Acetaminophen (Hydrocodone-Acetaminophen) 10-300 Tab 1 TAB PO Q4H PRN PAIN #30 Ref 0 TAB (Changed from: Hydrocodone-Acetaminophen 5- 325 mg Tab 1 Tab PO Q6HR PRN (PAIN) #30 TAB) Continued Medications: Alprazolam (Xanax) 0.25 Mg Tab 0.25 MG PO Q8H PRN ANXIETY #30 TAB Amlodipine (Norvasc) 10 Mg Tab 10 MG PO DAILY Blood Pressure Management #30 TAB Doxycycline Hyclate (Doxycycline Hyclate) 100 Mg Cap 100 MG PO BID Infection #28 Ref 0 CAP Fluconazole (Diflucan) 200 Mg Tab 200 MG PO DAILY Infection #14 Ref 0 TAB Iron Combinations (Iron Complex) 1 Cap Cap 1 CAP PO DAILY Nutritional Supplement Ref 0 CAP Lactobacillus Acidophilus (Floranex) 1 Gm Pkt 1 GM PO QID infection Days 14 BOTTLE Lisinopril (Lisinopril) 20 Mg Tab 20 MG PO BID Blood Pressure Management Days 30 TAB Phytonadione (Vitamin K) 100 Mcg Tab 100 MCG PO DAILY Sukh Krishna MD May 29, 2016 09:05
[2016-05-29] MEDS: SODIUM CHLORIDE 0.9% FLUSH 5 ML FLUSH FLUSH SCH (09:33)
[2016-05-29] MEDS: LISINOPRIL 20 MG TAB PO SCH (09:33)
[2016-05-29] MEDS: DOXYCYCLINE HYCLATE 100 MG CAP PO SCH (09:33)
[2016-05-29] MEDS: FLUCONAZOLE 200 MG TAB PO SCH (09:34)
[2016-05-29] MEDS: LACTOBACILLUS ACIDOPHILUS 1 GM PACKET PO SCH (09:34)
[2016-05-29] MEDS ORDERED: POTASSIUM CHLORIDE 20 MEQ CONTROLLED RELEASE TAB PO ONE (10:15)
--- NOTE | 2016-05-29 10:51 | PD.ONC.PN ---
Subjective Subjective Remarks Hematuria resolved. Appetite is poor. Objective Data Date Time Temp Pulse Resp B/P Pulse Ox O2 Delivery O2 Flow Rate FiO2 05/29/16 08:00 97.1 88 20 174/92 97 05/29/16 06:43 158/85 Manual Cuff/Auscultation 05/29/16 04:00 176/84 Automatic Cuff 05/29/16 04:00 97.7 87 18 177/91 99 05/29/16 00:00 97.8 86 16 169/90 95 05/28/16 20:00 98.3 93 18 170/87 100 05/28/16 16:00 97.6 84 20 166/90 97 05/28/16 12:00 98.0 88 20 162/90 99 05/29/16 05/29/16 05/29/16 07:00 15:00 23:00 Intake Total 3348 ml 360 ml Output Total 1500 ml 800 ml Balance 1848 ml -440 ml Result Diagram: 05/29/16 0358 05/29/16 0358 Laboratory Results Laboratory Tests Test 05/29/16 03:58 White Blood Count 10.2 TH/MM3 Red Blood Count 2.92 MIL/MM3 Hemoglobin 9.0 GM/DL Hematocrit 25.6 % Mean Corpuscular Volume 87.6 FL Mean Corpuscular Hemoglobin 30.6 PG Mean Corpuscular Hemoglobin 35.0 % Concent Red Cell Distribution Width 17.5 % Platelet Count 128 TH/MM3 Mean Platelet Volume 7.0 FL Sodium Level 143 MEQ/L Potassium Level 3.3 MEQ/L Chloride Level 107 MEQ/L Carbon Dioxide Level 25.6 MEQ/L Anion Gap 10 MEQ/L Blood Urea Nitrogen 13 MG/DL Creatinine 1.67 MG/DL Estimat Glomerular Filtration 44 ML/MIN Rate Random Glucose 101 MG/DL Calcium Level 8.2 MG/DL Administered Medications Medications (Trade) Dose Ordered Sig/Ambika Route PRN Reason Start Time Stop Time Status Last Admin Dose Admin Alprazolam (Xanax) 0.25 mg Q8H PRN PO ANXIETY 05/26/16 15:00 05/27/16 18:20 Amlodipine Besylate (Norvasc) 10 mg DAILY PO 05/27/16 09:00 05/29/16 09:34 Lactobacillus Acidophilus (Lactinex Pkt) 1 gm QID PO 05/26/16 18:00 05/29/16 09:34 Lisinopril (Prinivil) 20 mg BID PO 05/26/16 21:00 05/29/16 09:33 IV Flush (NS Flush) 2 ml BID FLUSH 05/26/16 21:00 05/29/16 09:33 Doxycycline Hyclate (Vibramycin) 100 mg BID PO 05/26/16 21:00 05/29/16 09:33 Fluconazole (Diflucan) 200 mg DAILY PO 05/26/16 18:30 05/29/16 09:34 Acetaminophen/ Hydrocodone Bitart 1 tab 1 tab Q4H PRN PO PAIN GREATER THAN 5 05/26/16 19:00 05/29/16 09:34 Dextrose (D5W 1000 ml Inj) 1,000 ml @ 150 mls/hr Q6H40M IV 05/28/16 13:45 05/29/16 03:28 Objective Remarks GENERAL: Middle aged male, pale. SKIN: Warm and dry. HEAD: Normocephalic. EYES: No scleral icterus. No injection or drainage. NECK: Supple, trachea midline. CARDIOVASCULAR: Regular rate and rhythm RESPIRATORY: Breath sounds equal bilaterally. No accessory muscle use. GASTROINTESTINAL: Abdomen soft, non-tender, nondistended. EXTREMITIES: No cyanosis NEUROLOGICAL: No obvious focal deficit. Awake, alert, and oriented x3. Zuniga clear yellow urine. Assessment/Plan Problem List: (1) Invasive carcinoma of urinary bladder Status: Acute Plan: 05/29/16. DC home today. Pt has appt on Mon, anticipate resuming chemotherapy as planned. 05/28/16. Chemo held due to acute hematuria, resolved, and recurrence of mild hematuria this AM. --plan to resume chemotherapy once UTI resolved. --history of neurogenic bladder diagnosed invasive bladder cancer receiving perioperative chemotherapy. --course was complicated by urinary tract infection and his chemotherapy has been placed on hold. (2) Anemia due to blood loss Status: Acute Plan: 05/29/16. Hgb better than yesterday. Hematuria resolved. No transfusion needed. 05/28/16. Still anemic. Follow resolution of hematuria, if worsen may need additional unit blood transfusion. Unable to give DVT prophylaxis. Advised to ambulate or to move legs in bed. 05/27/16: agree with transfusion 1 unit pRBC today --transfuse for hemoglobin less than 8 or symptoms (3) Urinary tract infection Status: Acute Plan: 05/29/16. Final culture after abx finished will be repeated on Monday. Pt to finish 14 days of Diflucan/Doxy. Follow culture. UTI appear treated. 05/28/16. Culture still neg 05/25/16. Abx continue. --on Doxycycline and Diflucan --most recent urine culture from 05/25/16 is without growth. Assessment 50y/o male with locally advanced bladder cancer associated with new gross hematuria, hematuria now improving. Plan 1. continue doxycycline + Diflucan to completion. 2. Ok to DC home 3. supportive care. 4. Keep appt for Wed for chemo. 5. Replace raj Villanueva, pt eating bananas Idalia Lee MD May 29, 2016 10:51
== END 2016-05-29 11:13 | disposition home or self-care (01) | DRG 696 ==
LOC: HOCB 11:18
PROVIDERS: ADMIT Family Medicine; ATTEND Family Medicine
PROC: 30233N1 Transfusion of Nonautologous Red Blood Cells into Peripheral Vein, Percutaneous Approach (ICD-10-PCS; principal; 2016-05-27)
DX: R31.0 Gross hematuria (principal); C67.9 Malignant neoplasm of bladder, unspecified; N13.30 Unspecified hydronephrosis; D64.81 Anemia due to antineoplastic chemotherapy; N31.9 Neuromuscular dysfunction of bladder, unspecified; D62 Acute posthemorrhagic anemia; R33.9 Retention of urine, unspecified; N28.9 Disorder of kidney and ureter, unspecified; I10 Essential (primary) hypertension; G89.29 Other chronic pain; F41.9 Anxiety disorder, unspecified; M54.9 Dorsalgia, unspecified; Z87.891 Personal history of nicotine dependence; Z85.79 Personal history of other malignant neoplasms of lymphoid, hematopoietic and related tissues; T45.1X5A Adverse effect of antineoplastic and immunosuppressive drugs, initial encounter; D50.9 Iron deficiency anemia, unspecified
CPT/HCPCS: 36430; 80048; 85014; 85018; 85025; 85027; 86850; 86900; 86901; 86920; J3480; J7030; J7050; J7070; P9016

== ENCOUNTER 2016-06-01 08:24 | Inpatient (IN) | payer OTHER ==
[~2016-06-01] VITALS: Ht 188 cm; Wt 86.0 kg
[2016-06-01] VITALS (9 sets, daily range): BP systolic 138–183; BP diastolic 74–94; PULSE 75–87; RESP 12–21; TEMP 97–98.7; O2SAT 98–100
[~2016-06-01 08:24] MED LIST changes: +HYDR-2374 PO; -HYDR-3516 PO
[2016-06-01] MEDS ORDERED: SODIUM CHLOR 0.9% 1000 ML INJ 1,000 ML IV SCH (08:42)
[2016-06-01] MEDS ORDERED: ONDANSETRON HCL 4 MG/2 ML VIAL IVP ONE (08:45)
[2016-06-01] MEDS ORDERED: SODIUM CHLORIDE 0.9% FLUSH 5 ML FLUSH IVF PRN (08:45)
[2016-06-01 09:11] LABS: AUTOMATED NEUTROPHIL # 7.5 TH/MM3 (1.8-7.7); BASOPHIL % 0.4 % (0.0-2.0); EOSINOPHIL # 0.3 TH/MM3 (0-0.4); EOSINOPHIL % 2.8 % (0.0-4.0); HEMO FLAGS DIFF FINAL; LYMPH % 16.1 % (9.0-44.0); LYMPHOCYTE # 1.7 TH/MM3 (1.0-4.8); MEAN CORPUSCULAR HEMOGLOBIN 30.1 PG (27.0-34.0); MEAN CORPUSCULAR HGB CONC 34.6 % (32.0-36.0); MONO % 8.2 % (0.0-8.0); NEUT % 72.5 % (16.0-70.0); PLATELET COUNT 116 TH/MM3 (150-450); RED BLOOD COUNT 3.22 MIL/MM3 (4.50-5.90); RED CELL DISTRIBUTION WIDTH 17.2 % (11.6-17.2); WHITE BLOOD COUNT 10.3 TH/MM3 (4.0-11.0)
--- NOTE | 2016-06-01 09:12 | PD ---
HPI Chief Complaint: Pain: Acute or Chronic Time Seen by Provider: 08:32 Travel History International Travel<30 days: No Contact w/Intl Traveler<30days: No Traveled to known affect area: No History of Present Illness HPI Patient is a 50-year-old male with history of neurogenic bladder who was diagnosed with locally advanced muscle invasive bladder cancer currently receiving perioperative chemotherapy, return to the emergency room after he was discharged on Monday for evaluation of intractable bladder pain with intractable nausea and vomiting. Patient reports that he was discharged from the hospital on Monday after being treated for similar symptoms, reports that he initially came to the hospital for hematuria along with urinary tract infection. Patient reports that he was sent home antibiotics on Monday, reports that he has not been able to tolerate any of his medications including his pain medications for the past 2 days. Reports that he has noticed increased blood in his urine this morning. Patient does have a Blancas catheter in place at this time. Patient reports that he is supposed to undergo cystectomy after a few more doses of chemotherapy, reports that he has not received his chemotherapy as he has been sick in hospital with hematuria and intractable abdominal pain. 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, benign) Cardiovascular Problems: No Chemotherapy: Yes Diabetes: No Endocrine: No Gastrointestinal Disorders: No Genitourinary: Yes (NEUROGENIC BLADDER, STRAIGHT CATHETERIZES SELF) Hepatitis: No Hiatal Hernia: No Hypertension: Yes Immune Disorder: No Implanted Vascular Access Dvce: No Medical other: Yes (EDEMA TO BLE) Musculoskeletal: No Neurologic: Yes (NEUROGENIC BLADDER AFTER TUMOR REMOVAL FROM SPINE) Psychiatric: No Reproductive: No Respiratory: No Immunizations Current: No Radiation Therapy: No Thyroid Disease: No Influenza Vaccination: No Past Surgical History Abdominal Surgery: No AICD: No Body Medical Devices: NONE Cardiac Surgery: No Ear Surgery: No Endocrine Surgery: No Eye Surgery: No Genitourinary Surgery: Yes (cystostopy, bladder surgery jan 2016) Joint Replacement: No Neurologic Surgery: Yes (REMOVAL OF TUMOR FROM SPINE) Oral Surgery: No Pacemaker: No Thoracic Surgery: No Other Surgery: Yes (spinal cord tumor) Social History Alcohol Use: No Tobacco Use: No Substance Use: No Allergies-Medications (Allergen,Severity, Reaction): Coded Allergies: No Known Allergies (Unverified , 05/09/16) Reported Meds & Prescriptions Reported Meds & Active Scripts Active Hydrocodone-Acetaminophen 10-300 Tab 1 Tab PO Q4H PRN Diflucan (Fluconazole) 200 Mg Tab 200 Mg PO DAILY Doxycycline Hyclate 100 Mg Cap 100 Mg PO BID Lisinopril 20 Mg Tab 20 Mg PO BID 30 Days Floranex (Lactobacillus Acidophilus) 1 Gm Pkt 1 Gm PO QID 14 Days Xanax (Alprazolam) 0.25 Mg Tab 0.25 Mg PO Q8H PRN Norvasc (Amlodipine Besylate) 10 Mg Tab 10 Mg PO DAILY Reported Vitamin K (Phytonadione) 100 Mcg Tab 100 Mcg PO DAILY Iron Complex (Iron Combinations) 1 Cap Cap 1 Cap PO DAILY Review of Systems General / Constitutional: No: Fever Eyes: No: Visual changes HENT: No: Headaches Cardiovascular: No: Chest Pain or Discomfort Respiratory: No: Shortness of Breath Gastrointestinal: Positive: Nausea, Vomiting, Abdominal Pain Genitourinary: Positive: Hematuria, No: Dysuria Musculoskeletal: No: Pain Skin: No Rash Neurologic: No: Weakness Psychiatric: No: Depression Endocrine: No: Polydipsia Hematologic/Lymphatic: No: Easy Bruising Physical Exam Narrative GENERAL: No acute distress, nontoxic SKIN: Warm and dry. HEAD: Atraumatic. Normocephalic. EYES: Pupils equal and round. No scleral icterus. No injection or drainage. ENT: No nasal bleeding or discharge. Mucous membranes pink and moist. NECK: Trachea midline. No JVD. CARDIOVASCULAR: Regular rate and rhythm. No murmur appreciated. RESPIRATORY: No accessory muscle use. Clear to auscultation. Breath sounds equal bilaterally. GASTROINTESTINAL: Abdomen soft, patient with increased tenderness to the lower abdomen.. : blancas catheter in place draining dark urine with hematuria MUSCULOSKELETAL: No obvious deformities. No clubbing. No cyanosis. No edema. NEUROLOGICAL: Awake and alert. No obvious cranial nerve deficits. Motor grossly within normal limits. Normal speech. PSYCHIATRIC: Appropriate mood and affect; insight and judgment normal. Data Data Last Documented VS Vital Signs Date Time Temp Pulse Resp B/P Pulse Ox O2 Delivery O2 Flow Rate FiO2 06/01/16 10:24 75 12 162/81 99 Room Air 06/01/16 08:26 97.9 Orders Complete Blood Count With Diff (06/01/16 08:42) Comprehensive Metabolic Panel (06/01/16 08:42) Lipase (06/01/16 08:42) Prothrombin Time / Inr (Pt) (06/01/16 08:42) Act Partial Throm Time (Ptt) (06/01/16 08:42) Urinalysis - C+S If Indicated (06/01/16 08:42) Iv Access Insert/Monitor (06/01/16 08:42) Ecg Monitoring (06/01/16 08:42) Oximetry (06/01/16 08:42) Ondansetron Inj (Zofran Inj) (06/01/16 08:45) Sodium Chlor 0.9% 1000 Ml Inj (Ns 1000 M (06/01/16 08:42) Sodium Chloride 0.9% Flush (Ns Flush) (06/01/16 08:45) Urine Culture (06/01/16 08:56) Gentamicin Inj (Gentamicin Inj) (06/01/16 10:00) Labs Laboratory Tests Test 06/01/16 06/01/16 08:55 08:56 White Blood Count 10.3 TH/MM3 Red Blood Count 3.22 MIL/MM3 Hemoglobin 9.7 GM/DL Hematocrit 28.0 % Mean Corpuscular Volume 87.0 FL Mean Corpuscular Hemoglobin 30.1 PG Mean Corpuscular Hemoglobin 34.6 % Concent Red Cell Distribution Width 17.2 % Platelet Count 116 TH/MM3 Mean Platelet Volume 7.3 FL Neutrophils (%) (Auto) 72.5 % Lymphocytes (%) (Auto) 16.1 % Monocytes (%) (Auto) 8.2 % Eosinophils (%) (Auto) 2.8 % Basophils (%) (Auto) 0.4 % Neutrophils # (Auto) 7.5 TH/MM3 Lymphocytes # (Auto) 1.7 TH/MM3 Monocytes # (Auto) 0.8 TH/MM3 Eosinophils # (Auto) 0.3 TH/MM3 Basophils # (Auto) 0.0 TH/MM3 CBC Comment DIFF FINAL Differential Comment Prothrombin Time 11.9 SEC Prothromb Time International 1.1 RATIO Ratio Activated Partial 28.9 SEC Thromboplast Time Sodium Level 144 MEQ/L Potassium Level 3.4 MEQ/L Chloride Level 108 MEQ/L Carbon Dioxide Level 23.9 MEQ/L Anion Gap 12 MEQ/L Blood Urea Nitrogen 21 MG/DL Creatinine 2.29 MG/DL Estimat Glomerular Filtration 31 ML/MIN Rate Random Glucose 98 MG/DL Calcium Level 8.5 MG/DL Total Bilirubin 0.9 MG/DL Aspartate Amino Transf 22 U/L (AST/SGOT) Alanine Aminotransferase 18 U/L (ALT/SGPT) Alkaline Phosphatase 84 U/L Total Protein 7.0 GM/DL Albumin 2.9 GM/DL Lipase 876 U/L Urine Color RED Urine Turbidity HAZY Urine pH 6.0 Urine Specific [place] 1.007 Urine Protein 100 mg/dL Urine Glucose (UA) NEG mg/dL Urine Ketones NEG mg/dL Urine Occult Blood LARGE Urine Nitrite NEG Urine Bilirubin NEG Urine Urobilinogen LESS THAN 2.0 MG/DL Urine Leukocyte Esterase LARGE Urine RBC 111 /hpf Urine WBC 70 /hpf Urine Transitional Epithelial 1 /hpf Cells Urine Mucus FEW /lpf Microscopic Urinalysis Comment CULTURE INDICATED MDM Medical Decision Making Medical Screen Exam Complete: Yes Emergency Medical Condition: Yes Interpretation(s) Vital Signs Date Time Temp Pulse Resp B/P Pulse Ox O2 Delivery O2 Flow Rate FiO2 06/01/16 08:31 84 16 183/88 100 Room Air 06/01/16 08:26 97.9 86 16 183/88 100 Differential Diagnosis UTI, stage IV bladder cancer, hematuria, intractable pain, and intractable nausea or vomiting Narrative Course Patient is a 50-year-old male with history of stage IV bladder cancer, also with history of chronic indwelling Blancas catheter, return to the emergency room after he was recently discharged in the hospital for recurrent bladder infection with hematuria and intractable abdominal pain. Patient reports that he has not been able tolerate any of his medications and has not been able tolerate his fluids since he was discharged on Monday. Patient reports that when he was admitted to the hospital previously, he did have hematuria and did have a urinary tract infection. Reports that he was sent home on antibiotics, reports that he has not been able to take any this antibiotics secondary to his intractable nausea and vomiting. Upon review of his records, patient was admitted on May 26, 2016 for hematuria, urinary retention, UTI. Patient was discharged on May 29, 2015 after he was treated for jad hematuria, UTI and anemia. Patient did receive 2 units of packed red blood cells on May 28, 2016. Patient was discharged with plans to complete doxycycline and Diflucan for complicated UTI until completion on 05/30/16. Previous to this, patient was admitted to the hospital for 10 days for jad hematuria as well as for UTI, was treated for Breanna and coag staph negative urinary tract infection with a course of doxycycline and Diflucan. Oncologist: Dr Lee pts home pain medication: hydrocodone/acetaminophen 10-300mg tabs q 4 hours prn pain - pt reports that he has not been able to tolerate his home pain meds. Plan to obtain labs to evaluate for hemoglobin, kidney functions, will hydrate and give IVF as well as antiemetics and pain medications Urologist: Dr. Lee pt with uti, previous cultures reviewed, pt with culture positive for staph epi which is sensitive to gentamicin will give dose of gent cr today elevated at 2.29, baseline cr around 1.5 Patient reevaluated, patient reports that he is feeling better but feels nauseous still. Patient does not feel as if he can go home, reports that "if I go home, I know that I cannot have to come back again because I can't hold anything down." Call made to medicine service for admission call made to Dr Schmidt - reviewed case - accepts pt to service Diagnosis Primary Impression: Hematuria Additional Impressions: UTI (urinary tract infection) Qualified Code: N30.01 - Acute cystitis with hematuria Renal insufficiency Intractable nausea and vomiting Qualified Code: R11.2 - Intractable vomiting with nausea, unspecified vomiting type Admitting Information Admitting Physician Requests: Cait Cleaning DO Jun 01, 2016 09:12
[2016-06-01 09:17] LABS: APTT (PATIENT) 28.9 SEC (24.3-30.1); INTERNATIONAL NORMALIZED RATIO 1.1 RATIO; PROTHROMBIN TIME - PATIENT 11.9 SEC (9.8-11.6)
[2016-06-01 09:19] LABS: BLOOD, URINE LARGE (NEG); COMMENT (UR) CULTURE INDICATED; CULTURE IF INDICATED CULTURE INDICATED; GLUCOSE,URINE NEG (NEG); KETONE, URINE NEG (NEG); MUCUS URINE FEW /lpf (OCC); NITRITE,URINE NEG (NEG); TRANSITIONAL EPI CELLS, URINE 1 /hpf
[2016-06-01 09:20] LABS: URINE COLOR RED (YELLW/STRAW)
[2016-06-01 09:36] LABS: ANION GAP 12 MEQ/L (5-15); AST (GOT) 22 U/L (15-37); BICARBONATE 23.9 MEQ/L (21.0-32.0); BLOOD UREA NITROGEN 21 MG/DL (7-18); CHLORIDE 108 MEQ/L (98-107); GLOMERULAR FILTRATION RATE 31 ML/MIN (>89); POTASSIUM 3.4 MEQ/L (3.5-5.1); SODIUM (NA) 144 MEQ/L (136-145)
[2016-06-01 09:39] LABS: ALKALINE PHOSPHATASE 84 U/L (45-117); ALT (GPT) 18 U/L (12-78); TOTAL BILIRUBIN ADULT 0.9 MG/DL (0.2-1.0)
[2016-06-01] MEDS ORDERED: GENTAMICIN SULFATE 80 MG/2 ML VIAL IV ONE (10:00)
[2016-06-01] MEDS ORDERED: PROCHLORPERAZINE 25 MG SUPP PR PRN (11:30)
[2016-06-01] MEDS ORDERED: SODIUM CHLORIDE 0.9% FLUSH 5 ML FLUSH FLUSH PRN (11:30)
[2016-06-01] MEDS ORDERED: BISACODYL 10 MG SUPP PR PRN (11:30)
[2016-06-01] MEDS ORDERED: ALPRAZolam 0.25 MG TAB PO PRN (11:30)
[2016-06-01] MEDS ORDERED: SENNOSIDES 8.6 MG TAB PO PRN (11:30)
[2016-06-01] MEDS ORDERED: ONDANSETRON HCL 4 MG/2 ML VIAL IVP PRN (11:30)
[2016-06-01] MEDS ORDERED: MAGNESIUM HYDROXIDE SUSP 30 ML CUP PO PRN (11:30)
[2016-06-01] MEDS ORDERED: TEMAZEPAM 15 MG CAP PO PRN (11:30)
--- NOTE | 2016-06-01 11:31 | HHI.HP ---
[facility] Service [facility] Primary Care Physician No Primary Care Physician Admission Diagnosis Intractable nausea/vomiting/pain, Complicated UTI Diagnoses: Travel History International Travel<30 Days: No Contact w/Intl Traveler <30 Da: No Traveled to Known Affected Are: No History of Present Illness 50-year-old male with history of neurogenic bladder who was diagnosed with locally advanced muscle invasive bladder cancer currently receiving perioperative chemotherapy, return to the emergency room after he was discharged on Monday for evaluation of intractable bladder pain with intractable nausea and vomiting. Patient reports that he was discharged from the hospital on Monday after being treated for similar symptoms, reports that he initially came to the hospital for hematuria along with urinary tract infection. Patient reports that he was sent home antibiotics on Monday, reports that he has not been able to tolerate any of his medications including his pain medications for the past 2 days. Reports that he has noticed increased blood in his urine this morning. Patient does have a Zuniga catheter in place at this time. Patient reports that he is supposed to undergo cystectomy after a few more doses of chemotherapy, reports that he has not received his chemotherapy as he has been sick in hospital with hematuria and intractable abdominal pain. Patient says he also has bloody urine now and he follows with Dr Lee. He complaints of suprapubic pain and back pain .Says he doesn't want to take much of pain meds. Review of Systems Constitutional: DENIES: Fever, Chills, Change in appetite Endocrine: DENIES: Heat/cold intolerance Eyes: DENIES: Blurred vision, Eye pain Ears, nose, mouth, throat: DENIES: Tinnitus, Hearing loss, Vertigo, Nasal discharge, Oral lesions, Throat pain, Hoarseness, Ear Pain, Running Nose, Epistaxis, Sinus Pain, Toothache, Odynophagia Cardiovascular: DENIES: Chest pain, Palpitations, Syncope, Dyspnea on Exertion , PND, Lower Extremity Edema, Orthopnea, Claudication Gastrointestinal: DENIES: Abdominal pain, Black stools, Bloody stools, Constipation, Diarrhea, Nausea, Vomiting, Difficulty Swallowing, Anorexia Genitourinary: COMPLAINS OF: Hematuria Musculoskeletal: COMPLAINS OF: Joint pain, Back pain Integumentary: DENIES: Rash Neurologic: DENIES: Abnormal gait, Headache, Localized weakness, Paresthesias, Seizures, Speech Problems, Tremor, Poor Balance Psychiatric: DENIES: Anxiety, Depression Past Family Social History Past Medical History Bladder CACurrently undergoing chemotherapy with Dr. Lee. Hypertension History of spinal tumorabout 20 years ago. Status post resection. No chemotherapy. No radiation. Neurogenic bladder Past Surgical History Spinal tumor resection Bladder resection Cystoscopies Reported Medications Reported Meds & Active Scripts Active Hydrocodone-Acetaminophen 10-300 Tab 1 Tab PO Q4H PRN Diflucan (Fluconazole) 200 Mg Tab 200 Mg PO DAILY Doxycycline Hyclate 100 Mg Cap 100 Mg PO BID Lisinopril 20 Mg Tab 20 Mg PO BID 30 Days Floranex (Lactobacillus Acidophilus) 1 Gm Pkt 1 Gm PO QID 14 Days Xanax (Alprazolam) 0.25 Mg Tab 0.25 Mg PO Q8H PRN Norvasc (Amlodipine Besylate) 10 Mg Tab 10 Mg PO DAILY Reported Vitamin K (Phytonadione) 100 Mcg Tab 100 Mcg PO DAILY Iron Complex (Iron Combinations) 1 Cap Cap 1 Cap PO DAILY Allergies: Coded Allergies: No Known Allergies (Unverified , 05/09/16) Family History Patient's father has a history of lymphoma. Social History Denies current use of tobacco, alcohol, or illicit drugs. He is a former smoker but reportedly quit after diagnosis of bladder cancer. Physical Exam Vital Signs Vital Signs Date Time Temp Pulse Resp B/P Pulse Ox O2 Delivery O2 Flow Rate FiO2 06/01/16 10:24 75 12 162/81 99 Room Air 06/01/16 09:00 77 16 169/79 100 Room Air 06/01/16 08:31 84 16 183/88 100 Room Air 06/01/16 08:26 97.9 86 16 183/88 100 Physical Exam GENERAL: This is a pleasant 50 yo male, well-nourished, well-developed patient , in no apparent distress. SKIN: Pale. No rashes, ecchymoses or lesions. Cool and dry. HEAD: Atraumatic. Normocephalic. No temporal or scalp tenderness. EYES: Pupils equal round and reactive. Extraocular motions intact. No scleral icterus. No injection or drainage. ENT: Nose without bleeding, purulent drainage or septal hematoma. Throat without erythema, tonsillar hypertrophy or exudate. Uvula midline. Airway patent. NECK: Trachea midline. No JVD or lymphadenopathy. Supple, nontender, no meningeal signs. CARDIOVASCULAR: Regular rate and rhythm without murmurs, gallops, or rubs. RESPIRATORY: Clear to auscultation. Breath sounds equal bilaterally. No wheezes , rales, or rhonchi. GASTROINTESTINAL: Abdomen soft, non-tender, nondistended. No hepato-splenomegaly , or palpable masses. No guarding. MUSCULOSKELETAL: Extremities without clubbing, cyanosis, or edema. No joint tenderness, effusion, or edema noted. No calf tenderness. Negative Homans sign bilaterally. NEUROLOGICAL: Awake and alert. Cranial nerves II through XII intact. Motor and sensory grossly within normal limits. Five out of 5 muscle strength in all muscle groups. Normal speech. : Zuniga in place with hematuria. Laboratory Laboratory Tests Test 06/01/16 06/01/16 08:55 08:56 White Blood Count 10.3 Red Blood Count 3.22 Hemoglobin 9.7 Hematocrit 28.0 Mean Corpuscular Volume 87.0 Mean Corpuscular Hemoglobin 30.1 Mean Corpuscular Hemoglobin 34.6 Concent Red Cell Distribution Width 17.2 Platelet Count 116 Mean Platelet Volume 7.3 Neutrophils (%) (Auto) 72.5 Lymphocytes (%) (Auto) 16.1 Monocytes (%) (Auto) 8.2 Eosinophils (%) (Auto) 2.8 Basophils (%) (Auto) 0.4 Neutrophils # (Auto) 7.5 Lymphocytes # (Auto) 1.7 Monocytes # (Auto) 0.8 Eosinophils # (Auto) 0.3 Basophils # (Auto) 0.0 CBC Comment DIFF FINAL Differential Comment Prothrombin Time 11.9 Prothromb Time International 1.1 Ratio Activated Partial 28.9 Thromboplast Time Sodium Level 144 Potassium Level 3.4 Chloride Level 108 Carbon Dioxide Level 23.9 Anion Gap 12 Blood Urea Nitrogen 21 Creatinine 2.29 Estimat Glomerular Filtration 31 Rate Random Glucose 98 Calcium Level 8.5 Total Bilirubin 0.9 Aspartate Amino Transf 22 (AST/SGOT) Alanine Aminotransferase 18 (ALT/SGPT) Alkaline Phosphatase 84 Total Protein 7.0 Albumin 2.9 Lipase 876 Urine Color RED Urine Turbidity HAZY Urine pH 6.0 Urine Specific [place] 1.007 Urine Protein 100 Urine Glucose (UA) NEG Urine Ketones NEG Urine Occult Blood LARGE Urine Nitrite NEG Urine Bilirubin NEG Urine Urobilinogen LESS THAN 2.0 Urine Leukocyte Esterase LARGE Urine RBC 111 Urine WBC 70 Urine Transitional Epithelial 1 Cells Urine Mucus FEW Microscopic Urinalysis Comment CULTURE INDICATED Date/Time Procedure Status Source Growth 06/01/16 08:56 Urine Culture Received Urine Clean Catch Pending Result Diagram: 06/01/1685406/01/1655 Assessment and Plan Assessment and Plan 50 year old male with indwelling Zuniga secondary to bladder cancer with Nausea/vomiting, failure to thrive unable to tolerate PO meds. Recurrent UTI. With staph epi and margareth on previous cultures. Treated as OP with fluconazole and doxy. UA reviewed, U cx pending Diet as tolerated. Will consider GI consult fluconazole IV and gentamycin IV . Consult ID for further eval, was seen by Dr Curtis prior DENA on CKD baseline Cr 1.6 and now is 2.2. Likely 2/2 decreased PO intake. Started on IVF. Monitor UOP Anemia: Secondary to hematuria. H/H stable so far, continue to monitor as patient has hematurioa staring today. Continue iron supplement as OP bc he has nausea/vomiting at this time. Bladder cancer: Patient undergoing chemotherapy treatment. -Follows with Dr. Lee. Will consult Dr Lee Hematuria: Will consult Dr Lee urology. Hypertension: - On hold lisinopril 2/2 DENA on CKD, and continue amlodipine. Monitor VS Chronic back pain and Anxiety: Continue [place] and Xanax as needed. Morphine IV for breakthrough pain Records also reviewed Code Status Full code Discussed Condition With Dr Kraus ED physician Rose Schmidt MD Jun 01, 2016 11:31
[2016-06-01] MEDS ORDERED: GENTAMICIN SULFATE 80 MG/2 ML VIAL IM SCH (11:45)
[2016-06-01] MEDS: SODIUM CHLOR 0.9% 1000 ML INJ 1,000 ML IV SCH ×2 (11:55→22:00)
[2016-06-01] MEDS ORDERED: Gentamicin Consult Pharmacy 1 EA OTHER SCH (12:00)
[2016-06-01] MEDS: POTASSIUM CHLOR 20 MEQ PREMIX 100 ML IV SCH ×2 (12:02→14:47)
[2016-06-01] MEDS: ACETAMINOPHEN/HYDROcodone 325 MG/10 MG TAB PO PRN ×2 (13:28→22:21)
[2016-06-01] MEDS: LACTOBACILLUS ACIDOPHILUS 1 GM PACKET PO SCH ×3 (13:48→20:24)
[2016-06-01] MEDS: FLUCONAZOLE 200 MG PREMIX BAG 100 ML IV SCH (14:46)
[2016-06-01] MEDS ORDERED: GENTAMICIN IV ONE (15:00)
[2016-06-01] MEDS ORDERED: SODIUM CHLORIDE 0.9% IV ONE (15:00)
[2016-06-01] MEDS ORDERED: cloNIDine HCL 0.1 MG TAB PO PRN (16:00)
--- NOTE | 2016-06-01 16:21 | PD.CONS ---
HPI History of Present Illness This is a 50 year old male patient who was diagnosed with bladder cancer in January of 2016. He has been undergoing chemotherapy with Dr. Lee and last had this 3 weeks ago. He reports that this is currently on hold because of his UTI and overall condition. He was hospitalized from 05/26/16-05/29/16 for UTI with staph epidermis and margareth albicans. He was discharged home on on doxycycline and diflucan. He states that he completed 14 days total and then stopped this. He reports that he has been having frequent nausea/vomiting with dry heaves since Monday. He has not been able to take anything by mouth. He has tried taking clear liquids at home, but cannot even keep this down. He does have two medications for nausea that he takes as needed, but states he does not recall the name and cannot even keep these down. He denies any heartburn or reflux. He is having suprapubic pain with radiation to his back. This is a dull ache, but states it is much more severe than usually. He also started having more hematuria in his catheter and therefore came into the hospital for further evaluation. He states he has probably lost about 10 or 12 lbs over the course of a week. He does have alternating constipation and diarrhea. He has never had an endoscopy. (Maricruz Polanco) PFSH Past Medical History Bladder CA, currently undergoing chemotherapy with Dr. Lee. Hypertension History of spinal tumorabout 20 years ago. S/P resection. No chemotherapy. No radiation. Neurogenic bladder Past Surgical History Spinal tumor resection Bladder resection Cystoscopies (Maricruz Polanco) Coded Allergies: No Known Allergies (Unverified , 05/09/16) Medications Allergies Coded Allergies Type Severity Reaction Last Updated Verified No Known Allergies 05/09/16 No Active Scripts Medications Dose Route/Sig Days Date Category Hydrocodone-Acetaminophen 10-300 Tab 1 Tab PO Q4H PRN 05/29/16 Rx Diflucan (Fluconazole) 200 Mg Tab 200 Mg PO DAILY 05/16/16 Rx Doxycycline Hyclate 100 Mg Cap 100 Mg PO BID 05/16/16 Rx Lisinopril 20 Mg Tab 20 Mg PO BID 30 05/16/16 Rx Floranex (Lactobacillus Acidophilus) 1 Gm Pkt 1 Gm PO QID 14 05/16/16 Rx Xanax (Alprazolam) 0.25 Mg Tab 0.25 Mg PO Q8H PRN 05/16/16 Rx Norvasc (Amlodipine Besylate) 10 Mg Tab 10 Mg PO DAILY 05/16/16 Rx Vitamin K (Phytonadione) 100 Mcg Tab 100 Mcg PO DAILY 04/18/16 Reported Iron Complex (Iron Combinations) 1 Cap Cap 1 Cap PO DAILY 04/18/16 Reported Family History Patient's father has a history of lymphoma. Social History Denies current use of tobacco, alcohol, or illicit drugs. He is a former smoker but reportedly quit after diagnosis of bladder cancer. (Maricruz Polanco) Review of Systems Constitutional: COMPLAINS OF: Fatigue, Fever, Weight loss, Chills, Change in appetite Respiratory: DENIES: Cough Cardiovascular: DENIES: Chest pain Gastrointestinal: COMPLAINS OF: Abdominal pain, Constipation, Diarrhea, Nausea , Vomiting, DENIES: Black stools, Bloody stools, Heartburn, Hematemesis Genitourinary: COMPLAINS OF: Hematuria Musculoskeletal: COMPLAINS OF: Back pain Hematologic/lymphatic: DENIES: Bruising Neurologic: DENIES: Headache Psychiatric: DENIES: Confusion (Maricruz Polanco) GI Exam Vitals I&O Vital Signs Date Time Temp Pulse Resp B/P Pulse Ox O2 Delivery O2 Flow Rate FiO2 06/01/16 15:44 97.0 85 18 175/87 100 06/01/16 10:24 75 12 162/81 99 Room Air 06/01/16 09:00 77 16 169/79 100 Room Air 06/01/16 08:31 84 16 183/88 100 Room Air 06/01/16 08:26 97.9 86 16 183/88 100 I/O 05/31/16 05/31/16 05/31/16 06/01/16 06/01/16 06/01/16 07:00 15:00 23:00 07:00 15:00 23:00 Output Total 1200 ml Balance -1200 ml Output Urine Total 1200 ml # Voids 0 Laboratory Test 06/01/16 06/01/16 08:55 08:56 White Blood Count 10.3 TH/MM3 Red Blood Count 3.22 MIL/MM3 Hemoglobin 9.7 GM/DL Hematocrit 28.0 % Mean Corpuscular Volume 87.0 FL Mean Corpuscular Hemoglobin 30.1 PG Mean Corpuscular Hemoglobin 34.6 % Concent Red Cell Distribution Width 17.2 % Platelet Count 116 TH/MM3 Mean Platelet Volume 7.3 FL Neutrophils (%) (Auto) 72.5 % Lymphocytes (%) (Auto) 16.1 % Monocytes (%) (Auto) 8.2 % Eosinophils (%) (Auto) 2.8 % Basophils (%) (Auto) 0.4 % Neutrophils # (Auto) 7.5 TH/MM3 Lymphocytes # (Auto) 1.7 TH/MM3 Monocytes # (Auto) 0.8 TH/MM3 Eosinophils # (Auto) 0.3 TH/MM3 Basophils # (Auto) 0.0 TH/MM3 CBC Comment DIFF FINAL Differential Comment Prothrombin Time 11.9 SEC Prothromb Time International 1.1 RATIO Ratio Activated Partial 28.9 SEC Thromboplast Time Sodium Level 144 MEQ/L Potassium Level 3.4 MEQ/L Chloride Level 108 MEQ/L Carbon Dioxide Level 23.9 MEQ/L Anion Gap 12 MEQ/L Blood Urea Nitrogen 21 MG/DL Creatinine 2.29 MG/DL Estimat Glomerular Filtration 31 ML/MIN Rate Random Glucose 98 MG/DL Calcium Level 8.5 MG/DL Total Bilirubin 0.9 MG/DL Aspartate Amino Transf 22 U/L (AST/SGOT) Alanine Aminotransferase 18 U/L (ALT/SGPT) Alkaline Phosphatase 84 U/L Total Protein 7.0 GM/DL Albumin 2.9 GM/DL Lipase 876 U/L Urine Color RED Urine Turbidity HAZY Urine pH 6.0 Urine Specific Galien 1.007 Urine Protein 100 mg/dL Urine Glucose (UA) NEG mg/dL Urine Ketones NEG mg/dL Urine Occult Blood LARGE Urine Nitrite NEG Urine Bilirubin NEG Urine Urobilinogen LESS THAN 2.0 MG/DL Urine Leukocyte Esterase LARGE Urine RBC 111 /hpf Urine WBC 70 /hpf Urine Transitional Epithelial 1 /hpf Cells Urine Mucus FEW /lpf Microscopic Urinalysis Comment CULTURE INDICATED Date/Time Procedure Status Source Growth 06/01/16 08:56 Urine Culture Received Urine Clean Catch Pending Physical Examination HEENT: Normocephalic; atraumatic; no jaundice. CHEST: CTA. CARDIAC: RRR ABDOMEN: Soft, nondistended, suprapubic tenderness; no hepatosplenomegaly; bowel sounds are present in all four quadrants. EXTREMITIES: No clubbing, cyanosis, or edema. SKIN: Normal; no rash; no jaundice. SEQUINS WINDER: No focal deficits; alert and oriented times three. (Maricruz Polanco) Assessment and Plan Plan ASSESSMENT: - Inability to tolerate po, Nausea/Vomiting. Pt was recently hospitalized -05/29/16 for UTI with n/v. He was discharged, but had worsening symptoms to the point that he cannot tolerate any po on Monday. Wt loss of 10 or 12 lbs over the course of a week. GI consulted for further evaluation. - Elevated lipase. Likely related to his persistent vomiting. Ideally would benefit from CT scan, but his creat is currently 2.44 and therefore this would need to be without contrast. - Suprapubic abdominal pain, likely related to UTI/cancer. - UTI. Recent hospitalization for UTI with staph epidermis and margareth albicans. He was discharged home on 05/29/16 on doxycycline and diflucan. He states that he completed 14 days total and then stopped this. - Bladder cancer, dx in 2015. He has been getting chemotherapy with Dr. Lee and last had this 3 weeks ago, he reports that it is currently on hold because of his UTI and overall condition - Hematuria, pt reports worsening hematuria. No significant hematuria noted in catheter at this time. - Anemia. 9.7/28.0. - DENA. Creat 2.29. No imaging. Likely multifactorial- dehydration, known process. PLAN: - Clear liquids - Add PPI - Abx per primary/ID - Compazine/Zofran prn - CT scan abdomen and pelvis without contrast - Monitor CBC, BMP, Lipase - Further recommendations to follow after seen and evaluated by Dr. Davidson ( Maricruz Polanco) Physician Comments Patient seen and examined Agree with above Continue with current supportive care Monitor labs Await CT of the abdomen with no IV contrast only oral contrast and consider EGD tomorrow if CT is unremarkable (Raji Davidson MD) Maricruz Polanco Jun 01, 2016 16:21 Raji Davidson MD Jun 01, 2016 21:41
[2016-06-01] MEDS: ENALAPRILAT 2.5 MG/2 ML VIAL IV PUSH PRN (16:26)
[2016-06-01] MEDS: PANTOPRAZOLE SODIUM 40 MG VIAL IV PUSH SCH (17:43)
[2016-06-01] MEDS: MORPHINE SULFATE 4 MG/ML INJ IV PUSH PRN ×2 (17:44→20:32)
--- NOTE | 2016-06-01 18:08 | MB ---
cc: SAADIA CAMEJO MD DATE OF CONSULTATION 06/01/[address] Schmidt REASON FOR CONSULTATION Frequent UTIs. History of bladder carcinoma. HISTORY OF PRESENT ILLNESS This is a 50-year-old white male who was diagnosed with bladder carcinoma. The patient was noted to have locally advanced muscle invasive bladder cancer and he has been undergoing perioperative chemotherapy. He was discharged from the hospital recently with antibiotic treatment for UTI. He developed intractable bladder pain along with nausea and vomiting and was sent back to the emergency department for evaluation. He was just released from the hospital on May 29 with antibiotics in the form of doxycycline and Diflucan. He had positive urine culture with Breanna albicans and staph coagulase negative on May 12 and on May 14. The cultures revealed bacteria in greater than 100,000 colonies. He was on intravenous antibiotic in the hospital and then he was discharged. He was readmitted again on May 26 because of urinary retention and hematuria. He also has noted nausea and vomiting and was unable to keep any food down. Repeat urine culture has been taken. The urinalysis has 70 white cells and a large amount of leukocyte esterase. The patient has a Zuniga catheter in place. It has been located in the bladder system for about a week. PAST MEDICAL HISTORY 1. Hypertension, 2. Neurogenic bladder 3. History of spinal tumor of 20 years ago 4. Status post resection of bladder carcinoma diagnosed in January 2016 ALLERGIES NO KNOWN DRUG ALLERGIES. MEDICATIONS 1. Fluconazole 2. Lactinex. 3. Morphine sulfate p.r.n. 4. One gentamicin dose was given today. SOCIAL HISTORY No tobacco or alcohol. No illicit drugs. FAMILY HISTORY Lymphoma in the patient's father. REVIEW OF SYSTEMS Pertinent as mentioned in history of present illness. PHYSICAL EXAMINATION GENERAL: This is a well-developed male who is in no acute distress. He is awake and alert and oriented. VITAL SIGNS: Temperature 97 degrees, BP 175/87, respirations 18, heart rate 85. HEENT: Head atraumatic. Extraocular movements grossly intact, pupils reactive to light without icterus. Nose - No bleeding or drainage. Oropharynx - no visible lesions. NECK: Supple without adenopathy or swelling. LUNGS: Clear breath sounds HEART: Regular rate and rhythm. ABDOMEN: Bowel sounds present, soft, nontender. Mild tenderness on palpation over the suprapubic area. RECTAL: Not performed. EXTREMITIES: No clubbing, cyanosis or edema. SKIN: No rash. NEUROLOGIC: Grossly nonfocal. PSYCHIATRIC: The patient calm and cooperative. GENITOURINARY: The patient has a Zuniga catheter in place which has rahul-colored urine. LABORATORY DATA WBC 10.3, platelet count 116, 72% neutrophils, 16 lymphocytes, 8% monocytes. Creatinine 2.29, BUN 21, sodium 144. IMPRESSION 1. Urinary tract infection. 2. Neurogenic bladder 3. Bladder carcinoma 4. Nausea and vomiting. 5. Acute renal insufficiency RECOMMENDATIONS 1. Begin daptomycin empiric 2. Follow the urine culture 3. Monitor renal function 4. Continue fluconazole 5. Antibiotic adjustments will be made depending on the new culture results. Thank you for this consultation. The patient's progress will be monitored and further recommendations will be given on followup if necessary. Saadia Camejo MD FD/ /4:07 PM /5:53 PM
--- NOTE | 2016-06-01 19:00 | RADRPT ---
EXAM DATE/TIME: 06/01/2016 18:19 [facility] COMPARISON: CT ABDOMEN & PELVIS W CONTRAST, April 11, 2016, 14:13. INDICATIONS : Abdomen pain,nuerogenic bladder,hematurea. ORAL CONTRAST: No oral contrast ingested. RADIATION DOSE: 13.82 CTDIvol (mGy) MEDICAL HISTORY : Carcinoma, bladder. Hypertension. SURGICAL HISTORY : Removal of bladder tumor and spinal tumor ENCOUNTER: Initial ACUITY: 1 day PAIN SCALE: 6/10 LOCATION: lower quadrant Abdomen TECHNIQUE: Volumetric scanning of the abdomen and pelvis was performed. Using automated exposure control and ad justment of the mA and/or kV according to patient size, radiation dose was kept as low as reasonably achievable to obtain optimal diagnostic quality images. FINDINGS: LOWER LUNGS: The visualized lower lungs are clear. LIVER: Homogeneous density without lesion. There is no dilation of the biliary tree. No calcified gallston es. SPLEEN: Normal size without lesion. PANCREAS: Within normal limits. KIDNEYS: There is bilateral hydronephrosis. There is bilateral hydroureter leading to the bladder. ADRENAL GLANDS: Within normal limits. VASCULAR: There is no aortic aneurysm. BOWEL/MESENTERY: Diverticulosis of the colon without diverticulitis. There is no free intraperitoneal air or fluid. ABDOMINAL WALL: Within normal limits. RETROPERITONEUM: Scattered retroperitoneal adenopathy. BLADDER: Bladder is diffusely abnormal and heterogeneous in appearance and may be filled with hemorrhage. Unde rlying mass cannot be excluded. Multiple pelvic masses are seen the largest adjacent to the right rach dder measuring 4.7 x 4.6 cm. Bilateral pelvic adenopathy one anteriorly and the left measures 2.3 cm and one slightly more superiorly measures 2.6 cm. Other smaller pelvic masses are seen REPRODUCTIVE: Within normal limits. INGUINAL: There is no lymphadenopathy or hernia. MUSCULOSKELETAL: Within normal limits for patient age. CONCLUSION: 1. Bilateral new severe hydronephrosis. 2. Heterogeneous appearance to the bladder could be from hematoma and/or mass. 3. Multiple pelvic masses are again noted, some of which are new, with increase in size of pelvic lym phadenopathy and retroperitoneal lymphadenopathy. Scar Prasad MD on June 01, 2016 at 18:53 Board Certified Radiologist. This report was verified electronically.
--- NOTE | 2016-06-01 19:31 | MB ---
cc: DOMENICO COKER Corrected Copy: 07/06/16 DATE OF CONSULTATION: 06/01/2015. HISTORY OF PRESENT ILLNESS: Mr. Henderson is known to our service. He is a 50-year-old male with a history of muscle invasive bladder cancer. He initially presented back in January of 2016 with significant gross hematuria and the bleeding was not be able to be controlled cystoscopic cystoscopically and therefore the bladder was opened and the area was fulgurated and the bleeding stopped at that time. He was left at that time with a suprapubic tube and the suprapubic tube was removed and now he has had a chronic indwelling Zuniga catheter. He does have a history of a neurogenic bladder and was performing catheterization in the past. He has been receiving chemotherapy by Dr. Lee but recently this was stopped because he has been having difficulty tolerating the last cycle of chemotherapy. He has been admitted on and off over the last two months due to recurrent hematuria and weakness with nausea and vomiting. Today he presents with worsening nausea and vomiting and has been unable to take anything by mouth. He denies any fevers or chills. He does complain of bilateral back pain, which has been getting worse over time and does have a history of hydronephrosis bilaterally. Renal ultrasound a month ago did show bilateral hydronephrosis and his creatinine has been rising; today it is 2.29 up from 1.67 three days ago, but 1.2 a week ago. Furthermore, he has required recurrent blood transfusions for his dropping hemoglobin and recently was admitted and received two units of red cells. ALLERGIES: NO KNOWN DRUG ALLERGIES. PAST MEDICAL HISTORY: His medical history includes: 1. Muscle invasive bladder cancer. 2. Hypertension. 3. Spinal tumor. 4. Neurogenic bladder. PAST SURGICAL HISTORY: Spinal tumor resection approximately twenty years ago with open bladder surgery in January of 2016. MEDICATIONS: For medications, please refer to the chart. REVIEW OF SYSTEMS: He complains of fatigue, weight loss, with chills and decreased appetite with nausea, vomiting, diarrhea, abdominal pain and also notes back pain. He has intermittent hematuria. He denies gait disturbances. He denies bleeding disorders. He denies skin lesions. Denies chest pain. Denies shortness of breath at present. All other systems were reviewed and are negative. PHYSICAL EXAMINATION: PRESENT VITAL SIGNS ON ADMISSION: Temperature 97, heart rate 85, respiratory rate 18, 17/87. GENERAL: He is a well-developed, well-nourished 50-year-old male in no acute distress. HEAD, EYES, EARS, NOSE, THROAT: Normocephalic and atraumatic. Pupils equal, round and reactive to light. Extraocular movements intact. NECK: The neck is supple. HEART: Regular rate and rhythm. LUNGS: Clear. ABDOMEN: Abdomen is soft. There is some tenderness over the suprapubic area. Zuniga is in place apparently draining clear urine. EXTREMITIES: No cyanosis, clubbing or edema. LABORATORY DATA: White count 10.3, hemoglobin 9.7, hematocrit 28.0, platelet count of 116,000. Chemistry: Sodium 144, potassium 3.4, chloride 108, carbon dioxide 23.9, BUN of 21, creatinine 2.29, glucose of 98. Coags: PT 11.9, INR 1.1, PTT is 28.9. Urinalysis shows large leukocyte esterase with 111 red cells and 70 white cells. IMAGING STUDIES: Recent imaging from 05/11 shows bilateral hydronephrosis. ASSESSMENT: This is a 50-year-old male with evidence of muscle invasive bladder cancer with pelvic lymphadenopathy currently with recurrent nausea, vomiting, fatigue and chills. RECOMMENDATIONS: 1. Recommend starting antibiotics and check urine culture as well as blood cultures for possible urinary tract infection / sepsis. 2. Continue with IV fluids for now to maintain urine clarity. 3. Follow serial creatinine. 4. Once creatinine has improved, would recommend repeat CT scan to evaluate pelvis and bladder area for adenopathy. 5. Will speak to Dr. Lee as to the benefit of continuing chemotherapy versus surgical options at this point in time due to his need for recurrent admissions due to hematuria and anemia. Will follow closely with you. Thank for the consult and for allowing me to participate in the care of this patient. Domenico LAMB/TAM /5:37 PM /7:19 PM [facility]
--- NOTE | 2016-06-01 20:01 | MB ---
cc: DOMENICO LEE,RACHEL MORALES,MARIBEL Dempsey M.D. DATE OF CONSULTATION 06/01/2016 New patient consultation summary. DATE OF 1965 DATE OF SERVICE June 01, [address] Schmidt[address] CHIEF COMPLAINT [address] Schmidt requested consultation for Mr. Henderson regarding muscle invasive bladder cancer. HISTORY OF PRESENT ILLNESS Mr. Henderson is a 50-year-old man, well-known patient with history of muscle invasive bladder cancer presenting with hematuria. He has a history of neurogenic bladder that predisposed him to this. He is receiving perioperative / neoadjuvant chemotherapy that has been held due to complications of recurrent hematuria. He was admitted to the hospital May 11, 2016 and discharged on May 16. He was unable to receive his chemotherapy May 17. He came in for followup on May 25 and had a urinary tract infection with two organisms, Breanna albicans specie and staph epidermidis. He was in the middle of antibiotic therapy. The following day he developed urinary obstruction and hematuria and was again admitted to the hospital. He was discharged with resolution of hematuria on May 29, 2016. His antibiotic therapy continued. At 7:30 in the morning on June 01, Mr. Henderson's mother called the service. He apparently has had lot of nausea, vomiting, intractable. He has increasing pain of his back. In addition there is recurrence of hematuria. With this he was advised to go into the emergency room. He was too weak to transfer by private vehicle and an ambulance was called. He was seen in emergency room by Dr. Cait Kraus. He had pain, vomiting and subsequently admitted to the hospital. Admission was coordinated by Dr. Schmidt. On admission he was found to have a hemoglobin of 9.7. He was clinically dry. Platelet count 116, BUN of 21, creatinine 2.29 which was significantly elevated compared to his discharge creatinine on Monday. His potassium is decreased. His pain was addressed. He was given IV fluid hydration. Since the morning was seen by gastroenterology and infectious disease. This evening at the time of the consultation he was able to eat his first jell-o. He still has hematuria. IV fluid hydration continues. Infectious disease recommends continuing the Diflucan. Daptomycin was initiated. Urine culture is being followed. Gastroenterology recommends clears, proton pump inhibitor added. Compazine and Zofran is optimized. CT scan of the abdomen and pelvis without contrast is performed, the results of which are still pending. Mr. Henderson still has nausea. He is anxiously awaiting some nausea medication. He has significant amount of pain in the back. He is discouraged and is here to proceed with his surgery. At this point given the fact that he has been unable to resume his perioperative chemotherapy since mid April due to recurrent hematuria. He has made efforts to drink well and stay hydrated at home. However, despite these efforts his hematuria has become a recurrent problem. He denies any fevers, chills or night sweats. He has noticed new right leg swelling since yesterday. Denies any shortness of breath. His energy level has not improved since blood transfusion. It used to make him feel a lot better. PAST MEDICAL HISTORY 1. Neurogenic bladder. 2. Muscle invasive bladder cancer. 3. Recurrent hematuria. 4. Chemotherapy induced anemia. 5. Acute on chronic renal insufficiency. 6. Iron deficiency. 7. Chronic pain. 8. Intractable nausea and vomiting. PAST SURGICAL HISTORY 1. Laminectomy. 2. Transurethral bladder irrigation and cystoscopy. 3. Port placement. FAMILY HISTORY Father had lymphoma. Mother is alive and well. SOCIAL HISTORY Smokes a pack a day. Denies any alcohol or illicit drug use. ALLERGIES NO KNOWN DRUG ALLERGIES. CURRENT MEDICATIONS 1. Norvasc. 2. Zofran. 3. Daptomycin. 4. Lorazepam. 5. Protonix. 6. Morphine. 7. Clonidine. 8. Vasotec. 9. Lactinex. 10. Fluconazole. 11. Acetaminophen. 12. Compazine p.r.n. 13. Senokot p.r.n. 14. Restoril p.r.n. PHYSICAL EXAMINATION VITAL SIGNS: Temperature 97.0, heart rate 85, respiratory rate 18, blood pressure 175/87, saturation 100%. GENERAL: Mr. Henderson is a 50-year-old man who looks tired. HEENT: His pupils are round and reactive to light and accommodation. Oropharynx is clear. Mucosa is moist. NECK: Supple with no adenopathy. LUNGS: Clear to auscultation. CHEST: Port in the right upper chest wall. CARDIOVASCULAR: Exam reveals normal rate, rhythm. ABDOMEN: Benign. EXTREMITIES: Lower extremity asymmetry right leg greater than the left. This is a new finding. NEUROLOGICAL: Exam is nonfocal. GENITOURINARY: Zuniga catheter in place with some blood-tinged urine. LABORATORY DATA Significant for hemoglobin of 9.7, platelet count 161. BUN of 21, creatinine 2.29. ASSESSMENT/PLAN Mr. Henderson is a 50-year-old man with history of neurogenic bladder developed a muscle invasive bladder cancer. He was receiving neoadjuvant / perioperative chemotherapy with partial response. His chemotherapy is interrupted with recurrent hematuria, urinary tract infection with staph specie and Breanna. He is re-admitted for symptoms of intractable nausea, vomiting, increased back pain, acute renal failure and recurrence of his hematuria. We discussed the above findings and concerns for progression and inability to continue treatment with chemotherapy. We will discuss with Dr. Lee, his urologist, the indication for definitive surgery at this juncture given inability to continue treatment hampered by the recurrent hematuria. His care will be optimized to improve his renal function. CT scan of the abdomen to evaluate the etiology of pain. He has had evidence of hydronephrosis which I suspect is related to his bladder tumor. Other etiologies sought. IV fluid hydration continues. His potassium is replaced. He has a new right lower extremity swelling. Doppler ultrasound will be obtained to rule out deep vein thrombosis. This is concerning and precarious in light of his intermittent bleeding. He has spent more time in bed and was recently hospitalized for the hematuria. There is a relative contraindication for starting him on anticoagulant therapy in light of his intermittent hematuria. It would be difficult to start him on anticoagulant therapy. It is even more pressing to address the hematuria. We will consider options pending results of ultrasound of the right lower extremity. MD MAYE Nunez/HARLEEN /6:57 PM /7:26 PM
[2016-06-01] MEDS: SODIUM CHLORIDE 0.9% FLUSH 5 ML FLUSH FLUSH SCH (20:24)
[2016-06-01] MEDS: DAPTOmycin INJ 320 MG in SODIUM CHLORIDE 0.9% INJ 100 ML IV SCH (20:24)
--- NOTE | 2016-06-01 22:02 | RADRPT ---
EXAM DATE/TIME: 06/01/2016 20:57 [place] COMPARISON: No previous studies available for comparison. INDICATIONS : Right lower extremity swelling. MEDICAL HISTORY : Hypertension. Carcinoma, bladder. Neurogenic bladder. Spinal cord tumor. UTI. Abdominal pain. Hem aturia. SURGICAL HISTORY : Spinal cord tumor removed. Cystostopy. Bladder surgery. Chemotherapy. ENCOUNTER: Initial ACUITY: 1 day PAIN SCORE: 0/10 LOCATION: Right leg. TECHNIQUE: Venous ultrasound of the leg was performed from the inguinal ligament to the proximal calf. Real-amrit e, color Doppler and spectral tracing, compression and augmentation techniques were used. FINDINGS: There is normal compressibility of the deep venous system from the inguinal region to the proximal ca lf. No echogenic clot is seen in the lumen of the common femoral, femoral, popliteal, and posterior tibial veins. There is a normal response of the venous system to proximal and distal augmentation an d respiration. CONCLUSION: No DVT in the right leg. Scar Prasad MD on June 01, 2016 at 22:00 Board Certified Radiologist. This report was verified electronically.
[2016-06-01] MEDS: ONDANSETRON HCL 4 MG/2 ML VIAL IVP SCH (23:10)
[2016-06-02] VITALS: BP 146/86; PULSE 81; RESP 16; TEMP 98.6; O2SAT 99
[2016-06-02 04:00] VITALS: BP 157/90; PULSE 76; RESP 16; TEMP 98; O2SAT 97
[2016-06-02] MEDS: ACETAMINOPHEN/HYDROcodone 325 MG/10 MG TAB PO PRN ×5 (04:08→21:41)
[2016-06-02] MEDS: ONDANSETRON HCL 4 MG/2 ML VIAL IVP SCH ×3 (04:31→17:12)
[2016-06-02 06:45] LABS: AUTOMATED NEUTROPHIL # 6.2 TH/MM3 (1.8-7.7); BASOPHIL % 0.5 % (0.0-2.0); EOSINOPHIL # 0.4 TH/MM3 (0-0.4); EOSINOPHIL % 4.6 % (0.0-4.0); HEMATOCRIT 22.9 % (39.0-51.0); LYMPH % 18.4 % (9.0-44.0); LYMPHOCYTE # 1.7 TH/MM3 (1.0-4.8); MEAN CELL VOLUME 89.3 FL (80.0-100.0); MEAN CORPUSCULAR HEMOGLOBIN 30.5 PG (27.0-34.0); MEAN CORPUSCULAR HGB CONC 34.2 % (32.0-36.0); MONO % 8.8 % (0.0-8.0); NEUT % 67.7 % (16.0-70.0); PLATELET COUNT 93 TH/MM3 (150-450); RED BLOOD COUNT 2.56 MIL/MM3 (4.50-5.90); WHITE BLOOD COUNT 9.2 TH/MM3 (4.0-11.0)
[2016-06-02 07:02] LABS: HEMO FLAGS AUTO DIFF
[2016-06-02 07:15] LABS: BICARBONATE 25.5 MEQ/L (21.0-32.0); POTASSIUM 3.9 MEQ/L (3.5-5.1)
--- NOTE | 2016-06-02 07:27 | HHI.PR ---
Subjective Remarks Abdominal pain is better controlled. Zuniga with bloody urine, clearing up. Still nauseated, zofran helps. No cp, sob, v/d/c. Says he was able to take sips of water without problems. Feels anxious at times. Objective Vitals Vital Signs Date Time Temp Pulse Resp B/P Pulse Ox O2 Delivery O2 Flow Rate FiO2 06/02/16 04:00 98.0 76 16 157/90 97 06/02/16 00:00 98.6 81 16 146/86 99 06/01/16 21:56 98.0 81 16 155/88 100 06/01/16 21:00 98.4 87 21 141/74 98 06/01/16 20:44 98.7 87 21 138/76 98 06/01/16 17:31 173/94 06/01/16 15:44 97.0 85 18 175/87 100 06/01/16 10:24 75 12 162/81 99 Room Air 06/01/16 09:00 77 16 169/79 100 Room Air 06/01/16 08:31 84 16 183/88 100 Room Air 06/01/16 08:26 97.9 86 16 183/88 100 I/O 06/01/16 06/01/16 06/01/16 06/02/16 06/02/16 06/02/16 07:00 15:00 23:00 07:00 15:00 23:00 Intake Total 480 ml 400 ml Output Total 1200 ml 1150 ml 1300 ml Balance -1200 ml -670 ml -900 ml Intake Oral 480 ml 400 ml Output Urine Total 1200 ml 1150 ml 1300 ml # Voids 0 1 # Bowel Movements 1 0 Result Diagram: 06/02/16 0550 06/02/16 0550 Imaging Last Impressions Lower Extremity Ultrasound 06/01/16 0000 Signed Impressions: Service Date/Time: Wednesday, June 01, 2016 20:57 - CONCLUSION: No DVT in the right leg. Scar Prasad MD Abdomen/Pelvis CT 06/01/16 0000 Signed Impressions: Service Date/Time: Wednesday, June 01, 2016 18:19 - CONCLUSION: 1. Bilateral new severe hydronephrosis. 2. Heterogeneous appearance to the bladder could be from hematoma and/or mass. 3. Multiple pelvic masses are again noted, some of which are new, with increase in size of pelvic lymphadenopathy and retroperitoneal lymphadenopathy. Scar Prasad MD Objective Remarks GENERAL: This is a pleasant 50 yo male, well-nourished, well-developed patient , in no apparent distress. SKIN: Pale. No rashes, ecchymoses or lesions. Cool and dry. HEAD: Atraumatic. Normocephalic. No temporal or scalp tenderness. EYES: Pupils equal round and reactive. Extraocular motions intact. No scleral icterus. No injection or drainage. ENT: Nose without bleeding, purulent drainage or septal hematoma. Throat without erythema, tonsillar hypertrophy or exudate. Uvula midline. Airway patent. NECK: Trachea midline. No JVD or lymphadenopathy. Supple, nontender, no meningeal signs. CARDIOVASCULAR: Regular rate and rhythm without murmurs, gallops, or rubs. RESPIRATORY: Clear to auscultation. Breath sounds equal bilaterally. No wheezes , rales, or rhonchi. GASTROINTESTINAL: Abdomen soft, non-tender, nondistended. No hepato-splenomegaly , or palpable masses. No guarding. MUSCULOSKELETAL: Extremities without clubbing, cyanosis, or edema. No joint tenderness, effusion, or edema noted. No calf tenderness. Negative Homans sign bilaterally. NEUROLOGICAL: Awake and alert. Cranial nerves II through XII intact. Motor and sensory grossly within normal limits. Five out of 5 muscle strength in all muscle groups. Normal speech. : Zuniga in place with hematuria. A/P Assessment and Plan 50 year old male with indwelling Zuniga secondary to bladder cancer with: Nausea/vomiting, failure to thrive unable to tolerate PO meds. Improving. Bladder cancer: Patient undergoing chemotherapy treatment.-Consult Dr. Lee. Hematuria. Bilateral hydronephrosis. Consult Dr Lee urology. Discussed with Dr Lee, he recommends poss surgery. Patient with bilateral hydronephrosis, also recurrent hematuria requiring transfusions multiple times. Patient also has worsening pelvic/retroperitoneal lymphadenopathy on this CT comparing to last CT dispite undergoing chemo. Recurrent UTI. With staph epi and amrgareth on previous cultures. Treated as OP with fluconazole and doxy. UA reviewed, U cx pending Diet as tolerated. GI consult , consider EGD if no improvement. ID specialist consulted, appreciate recommendations continue Fluconazole IV. DC gentamycin IV. Started dapromycin DENA on CKD baseline Cr 1.6 previously and on this admission Cr of 2.2. Likely 2 /2 decreased PO intake. On IVF. Monitor UOP. Monitor kidney indices. Improving. CT abd pelvis with PO contrast reviewed, findings discused with urology Dr Lee: 1. Bilateral new severe hydronephrosis. 2. Heterogeneous appearance to the bladder could be from hematoma and/or mass. 3. Multiple pelvic masses are again noted, some of which are new, with increase in size of pelvic lymphadenopathy and retroperitoneal lymphadenopathy. Anemia: Secondary to hematuria. H/H stable so far, continue to monitor as patient has hematurioa staring today. Continue iron supplement as OP bc he has nausea/vomiting at this time. Hypertension: - On hold lisinopril 2/2 DENA on CKD, and continue amlodipine. Monitor VS Chronic back pain and Anxiety: Continue [place] and Xanax as needed. Morphine IV for breakthrough pain DVT ppx SCD/TEDS. Chemical ppx is contraindicated 2/2 hematuria Rose Schmidt MD Jun 02, 2016 07:27
[2016-06-02 07:53] LABS: ACANTHOCYTES OCC (NORMAL); PLATELET ESTIMATE SMEAR LOW (NORMAL)
[2016-06-02 07:54] LABS: PLATELET MORPHOLOGY NORMAL (NORMAL); SCAN/DIFF AUTO DIFF CONFIRMED
[2016-06-02 08:00] VITALS: BP 168/88; PULSE 88; RESP 16; TEMP 97.8; O2SAT 100
--- NOTE | 2016-06-02 08:13 | PD.ONC.PN ---
Subjective Subjective Remarks Feels a little better. Urine still rahul. Nausea better controlled. Pain better controlled. Discussed Ct scan results. Objective Data Date Time Temp Pulse Resp B/P Pulse Ox O2 Delivery O2 Flow Rate FiO2 06/02/16 04:00 98.0 76 16 157/90 97 06/02/16 00:00 98.6 81 16 146/86 99 06/01/16 21:56 98.0 81 16 155/88 100 06/01/16 21:00 98.4 87 21 141/74 98 06/01/16 20:44 98.7 87 21 138/76 98 06/01/16 17:31 173/94 06/01/16 15:44 97.0 85 18 175/87 100 06/01/16 10:24 75 12 162/81 99 Room Air 06/01/16 09:00 77 16 169/79 100 Room Air 06/01/16 08:31 84 16 183/88 100 Room Air 06/01/16 08:26 97.9 86 16 183/88 100 Result Diagram: 06/02/16 0550 06/02/16 0550 Laboratory Results Laboratory Tests Test 06/01/16 06/01/16 06/02/16 06/02/16 08:55 08:56 00:06 05:50 White Blood Count 10.3 TH/MM3 9.2 TH/MM3 Red Blood Count 3.22 MIL/MM3 2.56 MIL/MM3 Hemoglobin 9.7 GM/DL 7.8 GM/DL Hematocrit 28.0 % 22.9 % Mean Corpuscular Volume 87.0 FL 89.3 FL Mean Corpuscular Hemoglobin 30.1 PG 30.5 PG Mean Corpuscular Hemoglobin 34.6 % 34.2 % Concent Red Cell Distribution Width 17.2 % 17.0 % Platelet Count 116 TH/MM3 93 TH/MM3 Mean Platelet Volume 7.3 FL 7.5 FL Neutrophils (%) (Auto) 72.5 % 67.7 % Lymphocytes (%) (Auto) 16.1 % 18.4 % Monocytes (%) (Auto) 8.2 % 8.8 % Eosinophils (%) (Auto) 2.8 % 4.6 % Basophils (%) (Auto) 0.4 % 0.5 % Neutrophils # (Auto) 7.5 TH/MM3 6.2 TH/MM3 Lymphocytes # (Auto) 1.7 TH/MM3 1.7 TH/MM3 Monocytes # (Auto) 0.8 TH/MM3 0.8 TH/MM3 Eosinophils # (Auto) 0.3 TH/MM3 0.4 TH/MM3 Basophils # (Auto) 0.0 TH/MM3 0.0 TH/MM3 CBC Comment DIFF FINAL AUTO DIFF Differential Comment AUTO DIFF CONFIRMED Prothrombin Time 11.9 SEC Prothromb Time International 1.1 RATIO Ratio Activated Partial 28.9 SEC Thromboplast Time Sodium Level 144 MEQ/L 148 MEQ/L Potassium Level 3.4 MEQ/L 3.9 MEQ/L Chloride Level 108 MEQ/L 114 MEQ/L Carbon Dioxide Level 23.9 MEQ/L 25.5 MEQ/L Anion Gap 12 MEQ/L 9 MEQ/L Blood Urea Nitrogen 21 MG/DL 22 MG/DL Creatinine 2.29 MG/DL 2.65 MG/DL Estimat Glomerular Filtration 31 ML/MIN 26 ML/MIN Rate Random Glucose 98 MG/DL 81 MG/DL Calcium Level 8.5 MG/DL 8.3 MG/DL Total Bilirubin 0.9 MG/DL Aspartate Amino Transf 22 U/L (AST/SGOT) Alanine Aminotransferase 18 U/L (ALT/SGPT) Alkaline Phosphatase 84 U/L Total Protein 7.0 GM/DL Albumin 2.9 GM/DL Lipase 876 U/L 121 U/L Urine Color RED Urine Turbidity HAZY Urine pH 6.0 Urine Specific [place] 1.007 Urine Protein 100 mg/dL Urine Glucose (UA) NEG mg/dL Urine Ketones NEG mg/dL Urine Occult Blood LARGE Urine Nitrite NEG Urine Bilirubin NEG Urine Urobilinogen LESS THAN 2.0 MG/DL Urine Leukocyte Esterase LARGE Urine RBC 111 /hpf Urine WBC 70 /hpf Urine Transitional Epithelial 1 /hpf Cells Urine Mucus FEW /lpf Microscopic Urinalysis Comment CULTURE INDICATED Random Gentamicin Level 15.2 MCG/ML Platelet Estimate LOW Platelet Morphology Comment NORMAL Acanthocytes OCC Amylase Level 41 U/L Culture Results Microbiology Date/Time Procedure Status Source Growth 06/01/16 08:56 Urine Culture Received Urine Clean Catch Pending Administered Medications Medications (Trade) Dose Ordered Sig/Ambika Route PRN Reason Start Time Stop Time Status Last Admin Dose Admin Acetaminophen/ Hydrocodone Bitart ([place] 10-325 Mg) 1 tab Q4H PRN PO PAIN 1-10 06/01/16 11:30 06/02/16 04:08 Lactobacillus Acidophilus 1 gm 1 gm QID PO 06/01/16 13:00 06/01/16 20:24 Sodium Chloride (NS 1000 ml Inj) 1,000 ml @ 100 mls/hr Q10H IV 06/01/16 12:00 06/01/16 22:00 IV Flush 2 ml 2 ml BID FLUSH 06/01/16 21:00 06/01/16 20:24 Fluconazole/ Sodium Chloride (Diflucan 200 Mg Premix Bag) 100 ml @ 100 mls/hr Q24H IV 06/01/16 13:00 06/01/16 14:46 Morphine Sulfate (Morphine Inj) 2 mg Q3H PRN IV PUSH BREAKTHROUGH PAIN 06/01/16 16:00 06/01/16 20:32 Enalaprilat 2.5 mg 2.5 mg Q6H PRN IV PUSH SBP> OR = 180, DBP> OR = 100 06/01/16 16:00 06/01/16 16:26 Daptomycin/Sodium Chloride (Cubicin Inj/NS Inj) 100 ml @ 200 mls/hr Q48H IV 06/01/16 20:00 06/01/16 20:24 Pantoprazole Sodium (Protonix Inj) 40 mg Q24H IV PUSH 06/01/16 17:00 06/01/16 17:43 Ondansetron HCl (Zofran Inj) 4 mg Q6H IVP 06/01/16 23:30 06/02/16 23:29 06/02/16 04:31 Objective Remarks GENERAL: Well-nourished, pallor, well-developed patient. SKIN: Warm and dry. HEAD: Normocephalic. EYES: No scleral icterus. No injection or drainage. NECK: Supple, trachea midline. No JVD or lymphadenopathy. LYMPHATIC: No adenopathy. CARDIOVASCULAR: Regular rate and rhythm without murmurs. RESPIRATORY: Breath sounds equal bilaterally. No accessory muscle use. GASTROINTESTINAL: Abdomen soft, non-tender, nondistended. EXTREMITIES: No cyanosis, asymmetry R leg more prominent, R leg bag MUSCULOSKELETAL: Adequate muscle tone. NEUROLOGICAL: No obvious focal deficit. Awake, alert, and oriented x3. PSYCHIATRIC: Appropriate mood and affect; insight and judgment normal. Assessment/Plan Problem List: (1) Invasive carcinoma of urinary bladder Status: Acute Plan: Ct scan reviewed, + hydronephrosis to account for acute renal failure, noted new adenopathy concerning for progression vs. reactive given new UTI with margareth and staph epidermidis. Hematuria improving with hydration, symptoms palliated. Hgb 7.9 will ultimately need a unit of blood if hgb cont to decrease. Defer to urology for management hydronephrosis/hematuria. Cystoscopy to evaluate obstruction vs. palliative cystectomy discussed with patient who is in favor of surgery. Pending Dr. Lee this AM. Assessment 50 y/o man with locally advance, muscle invasive bladder cancer with recurrent hematuria complicated by acute renal failure and BL hydronephrosis. Plan 1. Continue supportive antiemetic and pain medication 2. IVF hydration support 3. Monitor renal function 4. Transfuse for hgb<7.5 or symptoms 5. Pending urology and pt decision. Idalia Lee MD Jun 02, 2016 08:13
[2016-06-02] MEDS: LACTOBACILLUS ACIDOPHILUS 1 GM PACKET PO SCH ×4 (08:33→20:37)
[2016-06-02] MEDS: SODIUM CHLORIDE 0.9% FLUSH 5 ML FLUSH FLUSH SCH ×2 (08:36→20:37)
[2016-06-02] MEDS: PHYTONADIONE 100 MCG PO SCH (08:41)
[2016-06-02] MEDS: SODIUM CHLOR 0.9% 1000 ML INJ 1,000 ML IV SCH ×2 (08:41→18:00)
[2016-06-02] MEDS: LORazepam 0.5 MG TAB PO PRN ×2 (11:12→21:41)
[2016-06-02] MEDS: FLUCONAZOLE 200 MG PREMIX BAG 100 ML IV SCH (12:35)
[2016-06-02 12:55] VITALS: BP 159/80; PULSE 77; RESP 18; O2SAT 98
--- NOTE | 2016-06-02 13:02 | HHI.PR ---
Subjective Remarks Pt seen and examined. CT reviewed. Notes worsening adenopathy with bilateral hydronephrosis. No DVT on LE US. Creatinine slightly worse up to 2.6 from 2.2. Long discussion with family at bedside. Mother was present. Objective Vital Signs Vital Signs Date Time Temp Pulse Resp B/P Pulse Ox O2 Delivery O2 Flow Rate FiO2 06/02/16 12:55 98 21 06/02/16 08:00 97.8 88 16 168/88 100 06/02/16 04:00 98.0 76 16 157/90 97 06/02/16 00:00 98.6 81 16 146/86 99 06/01/16 21:56 98.0 81 16 155/88 100 06/01/16 21:00 98.4 87 21 141/74 98 06/01/16 20:44 98.7 87 21 138/76 98 06/01/16 17:31 173/94 06/01/16 15:44 97.0 85 18 175/87 100 I/O 06/01/16 06/01/16 06/01/16 06/02/16 06/02/16 06/02/16 07:00 15:00 23:00 07:00 15:00 23:00 Intake Total 480 ml 400 ml Output Total 1200 ml 1150 ml 1300 ml Balance -1200 ml -670 ml -900 ml Intake Oral 480 ml 400 ml Output Urine Total 1200 ml 1150 ml 1300 ml # Voids 0 1 # Bowel Movements 1 0 Result Diagram: 06/02/16 0550 06/02/16 0550 Objective Remarks Abd:soft,some tenderness, ND Zuniga now with clear urine Assessment and Plan Assessment and Plan 50 y.o male with muscle invasive bladder cancer with evidence of worsening adenopathy and hydronephrosis. Bone scan to r/o ronald metastasis. IR consult to place bilateral nephrostomy tubes to help improve renal function Options of treatment discussed with family: Continued chemotherapy with XRT vs palliative surgery. If bone scan is negative would recommend palliative cystectomy. Pt understands this is not curative but mcc it would reduce readmissions and improve quality of life for now. Will need to correct anemia/thrombocytopenia and need to improve nutritional status. Will start TPN. Albumin is 2.4 at present. Hope to perform cystectomy next week. Eulogio Lee DO Jun 02, 2016 13:02
--- NOTE | 2016-06-02 13:04 | HHI.IDPN ---
Note Infectious Disease Note Patient noets pain int the lower abdomen. received pain medicine and he says he feels better. Afebrile. Urine culture pending. Mom and son at bedside. This is a 50-year-old white male who was diagnosed with bladder carcinoma. The patient was noted to have locally advanced muscle invasive bladder cancer and he has been undergoing perioperative chemotherapy. He was discharged from the hospital recently with antibiotic treatment for UTI. He developed intractable bladder pain along with nausea and vomiting and was sent back to the emergency department for evaluation. PAST MEDICAL HISTORY 1. Hypertension, 2. Neurogenic bladder 3. History of spinal tumor of 20 years ago 4. Status post resection of bladder carcinoma diagnosed in January 2016 ALLERGIES NO KNOWN DRUG ALLERGIES. Current Medications Medications (Trade) Dose Ordered Sig/Ambika Route PRN Reason Start Time Stop Time Status Last Admin Dose Admin Amlodipine Besylate (Norvasc) 10 mg DAILY PO 06/02/16 09:00 06/02/16 08:31 Acetaminophen/ Hydrocodone Bitart ([place] 10-325 Mg) 1 tab Q4H PRN PO PAIN 1-10 06/01/16 11:30 06/02/16 12:29 Lactobacillus Acidophilus (Lactinex Pkt) 1 gm QID PO 06/01/16 13:00 06/02/16 12:29 Non-Formulary Medication 100 mcg 100 mcg DAILY PO 06/02/16 09:00 Sodium Chloride (NS 1000 ml Inj) 1,000 ml @ 100 mls/hr Q10H IV 06/01/16 12:00 06/02/16 08:41 IV Flush (NS Flush) 2 ml UNSCH PRN FLUSH FLUSH AFTER USING IV ACCESS 06/01/16 11:30 IV Flush (NS Flush) 2 ml BID FLUSH 06/01/16 21:00 06/02/16 08:36 Acetaminophen (Tylenol) 650 mg Q4H PRN PO TEMP > 100.4 06/01/16 11:30 Prochlorperazine (Compazine Supp) 25 mg Q12H PRN TN NAUSEA OR VOMITING 06/01/16 11:30 Bisacodyl (Dulcolax Supp) 10 mg DAILY PRN TN CONSTIPATION 06/01/16 11:30 Magnesium Hydroxide (Milk Of Magnesia Liq) 30 ml Q12H PRN PO CONSTIPATION 06/01/16 11:30 Sennosides (Senokot) 17.2 mg Q12H PRN PO CONSTIPATION 06/01/16 11:30 Temazepam 15 mg 15 mg HS PRN PO INSOMNIA 06/01/16 11:30 Fluconazole/ Sodium Chloride 100 ml @ 100 mls/hr Q24H IV 06/01/16 13:00 06/02/16 12:35 Pharmacy Profile Note (Gentamicin Consult Pharmacy) 0 ml @ 0 mls/hr UNSCH OTHER 06/01/16 12:00 Morphine Sulfate (Morphine Inj) 2 mg Q3H PRN IV PUSH BREAKTHROUGH PAIN 06/01/16 16:00 06/01/16 20:32 Enalaprilat (Vasotec Inj) 2.5 mg Q6H PRN IV PUSH SBP> OR = 180, DBP> OR = 100 06/01/16 16:00 06/01/16 16:26 Clonidine 0.1 mg 0.1 mg Q6H PRN PO SBP>170, DBP>95, HR>65 06/01/16 16:00 Daptomycin/Sodium Chloride (Cubicin Inj/NS Inj) 100 ml @ 200 mls/hr Q48H IV 06/01/16 20:00 06/01/16 20:24 Pantoprazole Sodium (Protonix Inj) 40 mg Q24H IV PUSH 06/01/16 17:00 06/01/16 17:43 Ondansetron HCl (Zofran Inj) 4 mg Q6H IVP 06/01/16 23:30 06/02/16 23:29 06/02/16 11:12 Lorazepam (Ativan Inj) 0.5 mg Q6H PRN IV PUSH nausea 06/01/16 19:00 Lorazepam (Ativan) 0.5 mg Q8H PRN PO anxiety 06/02/16 11:00 06/02/16 11:12 SOCIAL HISTORY No tobacco or alcohol. No illicit drugs. FAMILY HISTORY Lymphoma in the patient's father. REVIEW OF SYSTEMS Pertinent as mentioned in history of present illness. OBJECTIVE: Vital Signs Date Time Temp Pulse Resp B/P Pulse Ox O2 Delivery O2 Flow Rate FiO2 06/02/16 12:55 77 18 159/80 98 06/02/16 12:55 98 21 06/02/16 08:00 97.8 88 16 168/88 100 06/02/16 04:00 98.0 76 16 157/90 97 06/02/16 00:00 98.6 81 16 146/86 99 06/01/16 21:56 98.0 81 16 155/88 100 06/01/16 21:00 98.4 87 21 141/74 98 06/01/16 20:44 98.7 87 21 138/76 98 06/01/16 17:31 173/94 06/01/16 15:44 97.0 85 18 175/87 100 Laboratory Tests Test 06/01/16 06/02/16 08:55 05:50 White Blood Count 10.3 TH/MM3 9.2 TH/MM3 Red Blood Count 3.22 MIL/MM3 2.56 MIL/MM3 Hemoglobin 9.7 GM/DL 7.8 GM/DL Hematocrit 28.0 % 22.9 % Mean Corpuscular Volume 87.0 FL 89.3 FL Mean Corpuscular Hemoglobin 30.1 PG 30.5 PG Mean Corpuscular Hemoglobin 34.6 % 34.2 % Concent Red Cell Distribution Width 17.2 % 17.0 % Platelet Count 116 TH/MM3 93 TH/MM3 Mean Platelet Volume 7.3 FL 7.5 FL Neutrophils (%) (Auto) 72.5 % 67.7 % Lymphocytes (%) (Auto) 16.1 % 18.4 % Monocytes (%) (Auto) 8.2 % 8.8 % Eosinophils (%) (Auto) 2.8 % 4.6 % Basophils (%) (Auto) 0.4 % 0.5 % Neutrophils # (Auto) 7.5 TH/MM3 6.2 TH/MM3 Lymphocytes # (Auto) 1.7 TH/MM3 1.7 TH/MM3 Monocytes # (Auto) 0.8 TH/MM3 0.8 TH/MM3 Eosinophils # (Auto) 0.3 TH/MM3 0.4 TH/MM3 Basophils # (Auto) 0.0 TH/MM3 0.0 TH/MM3 CBC Comment DIFF FINAL AUTO DIFF Differential Comment AUTO DIFF CONFIRMED Platelet Estimate LOW Platelet Morphology Comment NORMAL Acanthocytes OCC Laboratory Tests Test 06/01/16 06/02/16 08:55 05:50 Sodium Level 144 MEQ/L 148 MEQ/L Potassium Level 3.4 MEQ/L 3.9 MEQ/L Chloride Level 108 MEQ/L 114 MEQ/L Carbon Dioxide Level 23.9 MEQ/L 25.5 MEQ/L Anion Gap 12 MEQ/L 9 MEQ/L Blood Urea Nitrogen 21 MG/DL 22 MG/DL Creatinine 2.29 MG/DL 2.65 MG/DL Estimat Glomerular Filtration 31 ML/MIN 26 ML/MIN Rate Random Glucose 98 MG/DL 81 MG/DL Calcium Level 8.5 MG/DL 8.3 MG/DL Total Bilirubin 0.9 MG/DL Aspartate Amino Transf 22 U/L (AST/SGOT) Alanine Aminotransferase 18 U/L (ALT/SGPT) Alkaline Phosphatase 84 U/L Total Protein 7.0 GM/DL Albumin 2.9 GM/DL Lipase 876 U/L 121 U/L Amylase Level 41 U/L Microbiology Date/Time Procedure Status Source Growth 06/01/16 08:56 Urine Culture Received Urine Clean Catch Pending IMAGING: Lower Extremity Ultrasound 06/01/16 0000 Signed Impressions: Service Date/Time: Wednesday, June 01, 2016 20:57 - CONCLUSION: No DVT in the right leg. Scar Prasad MD Abdomen/Pelvis CT 06/01/16 0000 Signed Impressions: Service Date/Time: Wednesday, June 01, 2016 18:19 - CONCLUSION: 1. Bilateral new severe hydronephrosis. 2. Heterogeneous appearance to the bladder could be from hematoma and/or mass. 3. Multiple pelvic masses are again noted, some of which are new, with increase in size of pelvic lymphadenopathy and retroperitoneal lymphadenopathy. Scar Prasad MD PHYSICAL EXAMINATION GENERAL: This is a well-developed male who is in no acute distress. He is awake and alert and oriented. HEENT: Head atraumatic. Extraocular movements grossly intact, pupils reactive to light without icterus. Nose - No bleeding or drainage. Oropharynx - no visible lesions. NECK: Supple without adenopathy or swelling. LUNGS: Clear breath sounds HEART: Regular rate and rhythm. ABDOMEN: Bowel sounds present, soft, nontender. Mild tenderness on palpation over the suprapubic area. EXTREMITIES: No clubbing, cyanosis or edema. SKIN: No rash. NEUROLOGIC: Grossly nonfocal. PSYCHIATRIC: The patient is pleasant calm and cooperative. GENITOURINARY: Zuniga catheter has whit sediment. IMPRESSION 1. Urinary tract infection. 2. Neurogenic bladder 3. Bladder carcinoma 4. Nausea and vomiting. 5. Acute renal insufficiency RECOMMENDATIONS 1. Continue Daptomycin. 2. Follow the urine culture 3. Monitor renal function 4. Continue fluconazole Dontfraid,Levy F MD Jun 02, 2016 13:04
[2016-06-02] MEDS ORDERED: LEVOFLOXACIN 500 MG PREMIX INJ 100 ML IV SCH (14:30)
--- NOTE | 2016-06-02 15:48 | HHI.GIFU ---
Subjective Remarks Resting in bed. Nausea controlled with the IV medicine. He is going for bone scan later and PICC line. IR consulted for Nephrostomy tubes (Maricruz Polanco) Objective Vitals I&O Vital Signs Date Time Temp Pulse Resp B/P Pulse Ox O2 Delivery O2 Flow Rate FiO2 06/02/16 12:55 77 18 159/80 98 06/02/16 12:55 98 21 06/02/16 08:00 97.8 88 16 168/88 100 06/02/16 04:00 98.0 76 16 157/90 97 06/02/16 00:00 98.6 81 16 146/86 99 06/01/16 21:56 98.0 81 16 155/88 100 06/01/16 21:00 98.4 87 21 141/74 98 06/01/16 20:44 98.7 87 21 138/76 98 06/01/16 17:31 173/94 06/01/16 15:44 97.0 85 18 175/87 100 I/O 06/01/16 06/01/16 06/01/16 06/02/16 06/02/16 06/02/16 07:00 15:00 23:00 07:00 15:00 23:00 Intake Total 480 ml 400 ml Output Total 1200 ml 1150 ml 1300 ml Balance -1200 ml -670 ml -900 ml Intake Oral 480 ml 400 ml Output Urine Total 1200 ml 1150 ml 1300 ml # Voids 0 1 # Bowel Movements 1 0 Laboratory Laboratory Tests Test 06/02/16 06/02/16 00:06 05:50 Random Gentamicin Level 15.2 White Blood Count 9.2 Red Blood Count 2.56 Hemoglobin 7.8 Hematocrit 22.9 Mean Corpuscular Volume 89.3 Mean Corpuscular Hemoglobin 30.5 Mean Corpuscular Hemoglobin 34.2 Concent Red Cell Distribution Width 17.0 Platelet Count 93 Mean Platelet Volume 7.5 Neutrophils (%) (Auto) 67.7 Lymphocytes (%) (Auto) 18.4 Monocytes (%) (Auto) 8.8 Eosinophils (%) (Auto) 4.6 Basophils (%) (Auto) 0.5 Neutrophils # (Auto) 6.2 Lymphocytes # (Auto) 1.7 Monocytes # (Auto) 0.8 Eosinophils # (Auto) 0.4 Basophils # (Auto) 0.0 CBC Comment AUTO DIFF Differential Comment AUTO DIFF CONFIRMED Platelet Estimate LOW Platelet Morphology Comment NORMAL Acanthocytes OCC Sodium Level 148 Potassium Level 3.9 Chloride Level 114 Carbon Dioxide Level 25.5 Anion Gap 9 Blood Urea Nitrogen 22 Creatinine 2.65 Estimat Glomerular Filtration 26 Rate Random Glucose 81 Calcium Level 8.3 Amylase Level 41 Lipase 121 Date/Time Procedure Status Source Growth 06/01/16 08:56 Urine Culture Received Urine Clean Catch Pending Imaging Last Impressions Lower Extremity Ultrasound 06/01/16 0000 Signed Impressions: Service Date/Time: Wednesday, June 01, 2016 20:57 - CONCLUSION: No DVT in the right leg. Scar Prasad MD Abdomen/Pelvis CT 06/01/16 0000 Signed Impressions: Service Date/Time: Wednesday, June 01, 2016 18:19 - CONCLUSION: 1. Bilateral new severe hydronephrosis. 2. Heterogeneous appearance to the bladder could be from hematoma and/or mass. 3. Multiple pelvic masses are again noted, some of which are new, with increase in size of pelvic lymphadenopathy and retroperitoneal lymphadenopathy. Scar Prasad MD Physical Exam HEENT: Normocephalic; atraumatic; no jaundice. Throat is clear. NECK: Neck is supple, no JVD, no lymphadenopathy. CHEST: CTA. CARDIAC: RRR. ABDOMEN: Soft, nondistended, mild suprapubic tenderness; no hepatosplenomegaly ; bowel sounds are present in all four quadrants. EXTREMITIES: No clubbing, cyanosis, or edema. SKIN: Normal; no rash; no jaundice. LABORER CHEMICAL PROCESSING: No focal deficits; alert and oriented times three. (Maricruz Polanco [facility]) Assessment and Plan Plan ASSESSMENT: - Inability to tolerate po, Nausea/Vomiting. Pt was recently hospitalized -05/29/16 for UTI with n/v. He was discharged, but had worsening symptoms to the point that he cannot tolerate any po on Monday. Wt loss of 10 or 12 lbs over the course of a week. Abdomen/Pelvis CT (06/01/16)----> 1. Bilateral new severe hydronephrosis. 2. Heterogeneous appearance to the bladder could be from hematoma and/or mass. 3. Multiple pelvic masses are again noted, some of which are new, with increase in size of pelvic lymphadenopathy and retroperitoneal lymphadenopathy. His nausea is now controlled with IV meds. - Elevated lipase. Likely related to his persistent vomiting. Improved. Likely related to his persistent vomiting and renal impairment. - Malnutrition. PICC line ordered. TPN ordered. - Suprapubic abdominal pain, likely related to UTI/cancer. - Bilateral hydronephrosis. Creat 2.6. following, IR consulted for nephrostomy tubes. - UTI. Recent hospitalization for UTI with staph epidermis and margareth albicans. He was discharged home on 05/29/16 on doxycycline and diflucan. He states that he completed 14 days total and then stopped this. ID following, Cx pending. Daptomycin and Diflucan - Bladder cancer, dx in 2015. He has been getting chemotherapy with Dr. Lee and last had this 3 weeks ago, he reports that it is currently on hold because of his UTI and overall condition. CT as above. Dr. Lee following----> continued chemotherapy vs XRT vs. palliative surgery. If bone scan negative, recommends palliative cystectomy. - Hematuria, pt reports worsening hematuria. No significant hematuria noted in catheter at this time. - Anemia. 7.8/22.9. Drop from 9.7, but no evidence of GI blood loss. Hematuria with hematoma in bladder on CT. - DENA. Creat 2.65. Pt with bilateral hydronephrosis, IR consulted for nephrostomy tubes. PLAN: - Clear liquids as tolerated from GI standpoint - TPN to be started after PICC placed - Cont. PPI - Abx per primary/ID (Daptomycin, Diflucan) - Compazine/Zofran prn - Await bone scan - Monitor labs - following - Oncology following - ID following - Further recommendations to follow after results of above - Pt seen and examined by Dr. Davidson and myself and this note is written on his behalf (Maricruz Polanco) Physician Comments Patient was seen and examined Agree with above Continue with current supportive care Monitor labs Symptoms most likely related to hydronephrosis and acute kidney injury Not much to pursue from a GI standpoint We will sign off (Raji Davidson MD) Maricruz Polanco Jun 02, 2016 15:48 Raji Davidson MD Jun 02, 2016 19:18
[2016-06-02 16:00] VITALS: BP 169/91; PULSE 84; RESP 18; TEMP 98.2; O2SAT 100
--- NOTE | 2016-06-02 16:32 | RADRPT ---
EXAM DATE/TIME: 06/02/2016 15:35 [facility] COMPARISON: No previous studies available for comparison. PRIOR BONE SCANS: No correlative bone scan available for comparison. INDICATIONS : Bladder cancer. DOSE: 30.0 mCi Tc99m MDP IV MEDICAL HISTORY : Carcinoma, bladder. Hypertension. SURGICAL HISTORY : Cystostopy, bladder surgery and tumor removed from spine. ENCOUNTER: Initial ACUITY: 4 - 6 months PAIN SCALE: 4/10 LOCATION: Lower abdomen. TECHNIQUE: Three hours post intravenous administration of radiotracer, whole body bone scan imaging was performe d. FINDINGS: Blood pool images demonstrate a homogeneous pattern of uptake in the soft tissues. No hyperemic area s are identified. Planar bone scan demonstrates a normal pattern of uptake. No focal areas of incre ased or decreased uptake are seen. Bilateral hydronephrosis noted. CONCLUSION: No evidence of bony metastatic disease Ochoa Crow MD on June 02, 2016 at 16:30 Board Certified Radiologist. This report was verified electronically.
[2016-06-02] MEDS: PANTOPRAZOLE SODIUM 40 MG VIAL IV PUSH SCH (17:11)
[2016-06-02 19:32] LABS: INTERNATIONAL NORMALIZED RATIO 1.1 RATIO
[2016-06-02 19:49] LABS: ALKALINE PHOSPHATASE 85 U/L (45-117); ALT (GPT) 18 U/L (12-78); ANION GAP 9 MEQ/L (5-15); AST (GOT) 21 U/L (15-37); BICARBONATE 25.6 MEQ/L (21.0-32.0); BLOOD UREA NITROGEN 22 MG/DL (7-18); CHLORIDE 112 MEQ/L (98-107); GLOMERULAR FILTRATION RATE 23 ML/MIN (>89); POTASSIUM 3.7 MEQ/L (3.5-5.1); SODIUM (NA) 147 MEQ/L (136-145); TOTAL BILIRUBIN ADULT 0.7 MG/DL (0.2-1.0)
[2016-06-02 20:00] VITALS: BP 157/86; PULSE 77; RESP 18; TEMP 97.1; O2SAT 97
[2016-06-02] MEDS: CLINIMIX 4.25/25 (Cust.Renal Central) 1000 mL- </= 42 mls/hr IV-CENTRAL SCH ×8 (20:36)
[2016-06-02] MEDS: FAT EMULSION 20% INJ 250 ML (@10 mls/hr) IV-CENTRAL SCH (20:37)
[2016-06-03] VITALS (11 sets, daily range): BP systolic 146–179; BP diastolic 76–95; PULSE 56–124; RESP 14–19; TEMP 97.2–100.7; O2SAT 96–99
[2016-06-03] MEDS: SODIUM CHLOR 0.9% 1000 ML INJ 1,000 ML IV SCH ×3 (04:00→20:12)
[2016-06-03] MEDS: ACETAMINOPHEN/HYDROcodone 325 MG/10 MG TAB PO PRN ×4 (05:04→21:25)
--- NOTE | 2016-06-03 08:59 | HHI.PR ---
Subjective Remarks Pt seen and examined. Feels ok. Some back pain. Creatinine up to 2.9. Bone scan negative for metastatic disease. For PNCT's today in IR. Objective Vital Signs Vital Signs Date Time Temp Pulse Resp B/P Pulse Ox O2 Delivery O2 Flow Rate FiO2 06/03/16 08:00 97.2 89 14 166/86 96 06/03/16 04:00 97.9 79 18 169/83 97 06/03/16 00:00 97.2 79 18 154/76 98 06/02/16 20:00 97.1 77 18 157/86 97 06/02/16 16:00 98.2 84 18 169/91 100 06/02/16 12:55 77 18 159/80 98 06/02/16 12:55 98 21 I/O 06/02/16 06/02/16 06/02/16 06/03/16 06/03/16 06/03/16 07:00 15:00 23:00 07:00 15:00 23:00 Intake Total 400 ml 1280 ml 0 ml 0 ml Output Total 1300 ml 1350 ml 600 ml Balance -900 ml 1280 ml -1350 ml -600 ml Intake Oral 400 ml 1280 ml 0 ml 0 ml Output Urine Total 1300 ml 1350 ml 600 ml # Bowel Movements 0 0 0 Result Diagram: 06/02/16 0550 06/02/161911 Objective Remarks Abd:soft,some tenderness, ND Zuniga now with clear urine 06/03 Abd:soft,nd, mild tenderness Zuniga: rahul urine Assessment and Plan Assessment and Plan 50 y.o male with muscle invasive bladder cancer with evidence of worsening adenopathy and hydronephrosis. Bone scan to r/o ronald metastasis. IR consult to place bilateral nephrostomy tubes to help improve renal function Options of treatment discussed with family: Continued chemotherapy with XRT vs palliative surgery. If bone scan is negative would recommend palliative cystectomy. Pt understands this is not curative but correction it would reduce readmissions and improve quality of life for now. Will need to correct anemia/thrombocytopenia and need to improve nutritional status. Will start TPN. Albumin is 2.4 at present. Hope to perform cystectomy next week. 06/03 50 y.o male with muscle invasive bladder cancer with evidence of worsening adenopathy and hydronephrosis. Bone scan negative for ronald metastasis. For bilateral PCNT's today Continue TPN For PICC line placement in near future Eulogio Lee DO Jun 03, 2016 08:59
[2016-06-03] MEDS: PHYTONADIONE 100 MCG PO SCH (09:00)
[2016-06-03] MEDS: LACTOBACILLUS ACIDOPHILUS 1 GM PACKET PO SCH ×5 (09:00→20:12)
[2016-06-03] MEDS: SODIUM CHLORIDE 0.9% FLUSH 5 ML FLUSH FLUSH SCH ×2 (09:38→21:00)
[2016-06-03] MEDS ORDERED: fentaNYL CITRATE 250 MCG/5 ML AMP ONE (10:10)
[2016-06-03] MEDS ORDERED: MIDAZOLAM HCL 5 MG/5 ML VIAL ONE (10:10)
--- NOTE | 2016-06-03 11:24 | PD.RAD ---
Post Procedure Progress Note Pre Procedure Diagnosis: (1) Bladder outlet obstruction (2) Bilateral hydronephrosis (3) Renal insufficiency (4) Hematuria Post Procedure Diagnosis: (1) Bladder outlet obstruction (2) Bilateral hydronephrosis (3) Renal insufficiency (4) Anemia due to blood loss Procedure Date: Jun 03, 2016 Supervising Radiologist: Mario Calix Proceduralist/Assist: Keisha Cooney, RT(R)(CV), Saige Rodríguez RT(R)() Anesthesia: Local, Conscious Sedation Plan of Activity Patient to Unit: Nursing Unit Patient Condition: Good See PACS Report for procedural detail/treatment Drainage Procedure Procedure 1 Imaging Guidance: Fluoroscopy, Ultrasound Side: Bilateral Procedure Type: Nephrostomy Procedure: Placement Tamaz[place]: 8 Drainage: [place] drainage Fluid Description: Mario Cardenas MD Jun 03, 2016 11:24
--- NOTE | 2016-06-03 11:28 | HHI.PR ---
Subjective Remarks In bed. Very pale, chronically ill patient. Pain is controlled by medications. Feels weak. No nausea, vomiting. No fever or chills. Still with hematuria. NPO. Plan for nephrostomy tube placement by IR today. Objective Vitals Vital Signs Date Time Temp Pulse Resp B/P Pulse Ox O2 Delivery O2 Flow Rate FiO2 06/03/16 09:10 98 21 06/03/16 08:00 97.2 89 14 166/86 96 06/03/16 04:00 97.9 79 18 169/83 97 06/03/16 00:00 97.2 79 18 154/76 98 06/02/16 20:00 97.1 77 18 157/86 97 06/02/16 16:00 98.2 84 18 169/91 100 06/02/16 12:55 77 18 159/80 98 06/02/16 12:55 98 21 I/O 06/02/16 06/02/16 06/02/16 06/03/16 06/03/16 06/03/16 07:00 15:00 23:00 07:00 15:00 23:00 Intake Total 400 ml 1280 ml 0 ml 0 ml Output Total 1300 ml 1350 ml 600 ml Balance -900 ml 1280 ml -1350 ml -600 ml Intake Oral 400 ml 1280 ml 0 ml 0 ml Output Urine Total 1300 ml 1350 ml 600 ml # Bowel Movements 0 0 0 Result Diagram: 06/02/16 0550 06/02/162 Imaging Last Impressions Bone Scan Nuclear Medicine 06/02/16 0000 Signed Impressions: Service Date/Time: May 15:35 - CONCLUSION: No evidence of bony metastatic disease Ochoa Crow MD Lower Extremity Ultrasound 06/01/16 0000 Signed Impressions: Service Date/Time: Wednesday, June 01, 2016 20:57 - CONCLUSION: No DVT in the right leg. Scar Prasad MD Abdomen/Pelvis CT 06/01/16 0000 Signed Impressions: Service Date/Time: Wednesday, June 01, 2016 18:19 - CONCLUSION: 1. Bilateral new severe hydronephrosis. 2. Heterogeneous appearance to the bladder could be from hematoma and/or mass. 3. Multiple pelvic masses are again noted, some of which are new, with increase in size of pelvic lymphadenopathy and retroperitoneal lymphadenopathy. Scar Prasad MD Objective Remarks GENERAL: This is a pleasant 50 yo male, well-nourished, well-developed patient , in no apparent distress. SKIN: Pale. No rashes, ecchymoses or lesions. Cool and dry. HEAD: Atraumatic. Normocephalic. No temporal or scalp tenderness. EYES: Pupils equal round and reactive. Extraocular motions intact. No scleral icterus. No injection or drainage. ENT: Nose without bleeding, purulent drainage or septal hematoma. Throat without erythema, tonsillar hypertrophy or exudate. Uvula midline. Airway patent. NECK: Trachea midline. No JVD or lymphadenopathy. Supple, nontender, no meningeal signs. CARDIOVASCULAR: Regular rate and rhythm without murmurs, gallops, or rubs. RESPIRATORY: Clear to auscultation. Breath sounds equal bilaterally. No wheezes , rales, or rhonchi. GASTROINTESTINAL: Abdomen soft, non-tender, nondistended. No hepato-splenomegaly , or palpable masses. No guarding. MUSCULOSKELETAL: Extremities without clubbing, cyanosis, or edema. No joint tenderness, effusion, or edema noted. No calf tenderness. Negative Homans sign bilaterally. NEUROLOGICAL: Awake and alert. Cranial nerves II through XII intact. Motor and sensory grossly within normal limits. Five out of 5 muscle strength in all muscle groups. Normal speech. : Zuniga in place with hematuria. A/P Assessment and Plan 50 year old male with indwelling Zuniga secondary to bladder cancer with: Nausea/vomiting, failure to thrive unable to tolerate PO meds. Improving. Bladder cancer: Patient undergoing chemotherapy treatment.-Consult Dr. Lee. Hematuria. Bilateral hydronephrosis. Consult Dr Lee urology. Discussed with Dr Lee, he recommends poss surgery. Patient with bilateral hydronephrosis, also recurrent hematuria requiring transfusions multiple times. Patient also has worsening pelvic/retroperitoneal lymphadenopathy on this CT comparing to last CT dispite undergoing chemo. Recurrent UTI. With staph epi and margareth on previous cultures. Treated as OP with fluconazole and doxy. UA reviewed, U cx pending Diet as tolerated. GI consult , consider EGD if no improvement. ID specialist consulted, appreciate recommendations continue Fluconazole IV. DC gentamycin IV. Started dapromycin DENA on CKD baseline Cr 1.6 previously and on this admission Cr of 2.2. Likely 2 /2 decreased PO intake. On IVF. Monitor UOP. Monitor kidney indices. Improving. CT abd pelvis with PO contrast reviewed, findings discussed with urology Dr Lee: 1. Bilateral new severe hydronephrosis. 2. Heterogeneous appearance to the bladder could be from hematoma and/or mass. 3. Multiple pelvic masses are again noted, some of which are new, with increase in size of pelvic lymphadenopathy and retroperitoneal lymphadenopathy. Plan for nephrostomy tube placement by IR 06/03/16 Anemia: Secondary to hematuria. H/H stable so far, continue to monitor as patient has hematuria. Continue iron supplement as OP bc he has nausea/vomiting at this time. Transfuse of need. Hypertension: - On hold lisinopril 2/2 DENA on CKD, and continue amlodipine. Monitor VS Chronic back pain and Anxiety: Continue [place] and Xanax as needed. Morphine IV for breakthrough pain DVT ppx SCD/TEDS. Chemical ppx is contraindicated 2/2 hematuria Discussed with the patient, nurse. Rose Schmidt MD Jun 03, 2016 11:28
[2016-06-03] MEDS ORDERED: IOHEXOL 350 MG/ML 50 ML BTL (for RAD DIAG) ONE (11:35)
--- NOTE | 2016-06-03 12:59 | PD.ONC.PN ---
Subjective Subjective Remarks Afebrile overnight. Having percutaneous nephrostomy tube placement, today. Objective Data Date Time Temp Pulse Resp B/P Pulse Ox O2 Delivery O2 Flow Rate FiO2 06/03/16 09:10 98 21 06/03/16 08:00 97.2 89 14 166/86 96 06/03/16 04:00 97.9 79 18 169/83 97 06/03/16 00:00 97.2 79 18 154/76 98 06/02/16 20:00 97.1 77 18 157/86 97 06/02/16 16:00 98.2 84 18 169/91 100 06/02/16 12:55 77 18 159/80 98 06/02/16 12:55 98 21 Result Diagram: 06/02/16 0550 06/02/161911 Laboratory Results Laboratory Tests Test 06/02/16 19:12 Prothrombin Time 12.0 SEC Prothromb Time International 1.1 RATIO Ratio Sodium Level 147 MEQ/L Potassium Level 3.7 MEQ/L Chloride Level 112 MEQ/L Carbon Dioxide Level 25.6 MEQ/L Anion Gap 9 MEQ/L Blood Urea Nitrogen 22 MG/DL Creatinine 2.94 MG/DL Estimat Glomerular Filtration 23 ML/MIN Rate Random Glucose 92 MG/DL Calcium Level 8.4 MG/DL Phosphorus Level 5.5 MG/DL Magnesium Level 2.0 MG/DL Total Bilirubin 0.7 MG/DL Aspartate Amino Transf 21 U/L (AST/SGOT) Alanine Aminotransferase 18 U/L (ALT/SGPT) Alkaline Phosphatase 85 U/L Total Protein 6.5 GM/DL Albumin 2.8 GM/DL Triglycerides Level 150 MG/DL Culture Results Microbiology Date/Time Procedure Status Source Growth 06/01/16 08:56 Urine Culture - Final Complete Urine Clean Catch Margareth Albicans Administered Medications Medications (Trade) Dose Ordered Sig/Ambika Route PRN Reason Start Time Stop Time Status Last Admin Dose Admin Amlodipine Besylate (Norvasc) 10 mg DAILY PO 06/02/16 09:00 06/03/16 09:36 Acetaminophen/ Hydrocodone Bitart (Sebree 10-325 Mg) 1 tab Q4H PRN PO PAIN 1-10 06/01/16 11:30 06/03/16 09:37 Lactobacillus Acidophilus 1 gm 1 gm QID PO 06/01/16 13:00 06/02/16 20:37 Sodium Chloride (NS 1000 ml Inj) 1,000 ml @ 100 mls/hr Q10H IV 06/01/16 12:00 06/03/16 04:00 IV Flush 2 ml 2 ml BID FLUSH 06/01/16 21:00 06/03/16 09:38 Fluconazole/ Sodium Chloride (Diflucan 200 Mg Premix Bag) 100 ml @ 100 mls/hr Q24H IV 06/01/16 13:00 06/02/16 12:35 Morphine Sulfate (Morphine Inj) 2 mg Q3H PRN IV PUSH BREAKTHROUGH PAIN 06/01/16 16:00 06/01/16 20:32 Enalaprilat 2.5 mg 2.5 mg Q6H PRN IV PUSH SBP> OR = 180, DBP> OR = 100 06/01/16 16:00 06/01/16 16:26 Daptomycin/Sodium Chloride (Cubicin Inj/NS Inj) 100 ml @ 200 mls/hr Q48H IV 06/01/16 20:00 06/01/16 20:24 Pantoprazole Sodium (Protonix Inj) 40 mg Q24H IV PUSH 06/01/16 17:00 06/02/16 17:11 Lorazepam 0.5 mg 0.5 mg Q8H PRN PO anxiety 06/02/16 11:00 06/02/16 21:41 Sodium Chloride 5.5 meq/Sodium Acetate 29.5 meq/ Potassium Chloride 20 meq/ Magnesium Chloride 5 meq/ Calcium Chloride 4.5 meq/ Multivitamins 10 ml/Folic Acid 1 mg/Amino Acids/ Dextrose 1,042.1719 ml @ 42 mls/hr Q24H IV-CENTRAL 06/02/16 20:00 06/02/16 20:36 Fat Emulsion Intravenous (Liposyn Iii 20% Inj) 250 ml @ 10 mls/hr Q24H IV-CENTRAL 06/02/16 20:00 06/02/16 20:37 Objective Remarks GENERAL: Middle aged male, lying in bed, complaining of pain. He is just back from percutaneous nephrostomy tube placement. SKIN: Warm and dry. percutaneous nephrostomy tubes in place, draining clear red fluid. HEAD: Atraumatic. Normocephalic. EYES: No injection or drainage. ENT: No nasal bleeding or discharge. NECK: Trachea midline. CARDIOVASCULAR: Regular rate and rhythm. RESPIRATORY: Clear to auscultation. Breath sounds equal bilaterally. GASTROINTESTINAL: Abdomen soft, non-tender, nondistended. MUSCULOSKELETAL: Extremities without clubbing, cyanosis, or edema. NEUROLOGICAL: Awake and alert. normal speech. moving all extremities. Assessment/Plan Problem List: (1) Invasive carcinoma of urinary bladder Status: Acute Plan: 06/03/16: bone scan is negative, urology plans to proceed with palliative cystectomy next week. bilateral percutaneous nephrostomy tubes placed in IR today. Options of treatment discussed with family: Continued chemotherapy with XRT vs palliative surgery. If bone scan is negative would recommend palliative cystectomy. Pt understands this is not curative but shelter it would reduce readmissions and improve quality of life for now. + hydronephrosis to account for acute renal failure, noted new adenopathy concerning for progression vs. reactive given new UTI with margareth and staph epidermidis. Assessment 50 y/o man with locally advance, muscle invasive bladder cancer with recurrent hematuria complicated by acute renal failure and BL hydronephrosis. Now s/p bilateral percutaneous nephrostomy tube placement. Plan 1. monitor CBC, electrolytes 2. transfuse for hgb<7.5 or for symptoms Attending Statement The exam, history, and the medical decision-making described in the above note were completed with the assistance of the mid-level provider. I reviewed and agree with the findings presented. I attest that I had a [id number] encounter with the patient on the same day, and personally performed and documented my assessment and findings in the medical record. Pt seen and examined post nephrostomy tubes, bloody urine with better output on L side. c/o hunger, eager to drink fluids. Discussed plans for support and cystectomy next week. Monitor hgb in AM, transfuse for hgb<8.0 due to active hematuria. Pain control with prn pain meds. Monitor for recovery of renal function. Jesika Wilkes Jun 03, 2016 12:59 Idalia Lee MD Jun 03, 2016 20:04
[2016-06-03] MEDS: FLUCONAZOLE 200 MG PREMIX BAG 100 ML IV SCH (13:00)
--- NOTE | 2016-06-03 13:39 | RADRPT ---
EXAM DATE/TIME: 06/03/2016 10:12 [facility] COMPARISON: No previous studies available for comparison. INDICATIONS : Patient is in need of placement of bilateral nephrostomy tubes due to severe hydronephrosis. MEDICAL HISTORY : History of bladder cancer, neurogenic bladder, spinal tumor, HTN, PAD. SURGICAL HISTORY : History of bladder resection, spinal tumor resection, multiple cystoscopies. ENCOUNTER: Initial ACUITY: 2 days PAIN SCORE: 7/10 LOCATION: Bilateral lower back FLUORO TIME: 3.5 minutes SEDATION TIME: 45 minutes CONTRAST: 20 cc Omnipaque (iohexol) 350 MEDICATION(S): 1.) 5 mg midazolam (Versed) IV 2.) 250 mcg fentanyl (Sublimaze) IV 3.) 500 mg levofloxacin (Levaquin) IV Prophylactic antibiotics were administered with appropriate pre-procedure timing. Intra-procedural antibiotics were given as prescribed above. DEVICE(S): 1.) 8 [place] 25cm nephrostomy catheter Flexima PROCEDURE : 1. Ultrasound-guided puncture of the kidney. 2. Antegrade percutaneous pyelogram. 3. Percutaneous nephrostomy placement. 4. Conscious sedation with continuous EKG and oximetry monitoring. The risks, benefits and alternatives to the procedure were explained and verbal and written consent w as obtained. The site was prepped in sterile fashion. Full sterile technique was used, including ca p, mask, sterile gloves and gown and a large sterile sheet. Hand hygiene and 2% chlorhexidine and/or betadine/alcohol prep was utilized per protocol for cutaneous antisepsis. The skin and subcutaneous tissues were infiltrated with local anesthetic solution. With ultrasound and fluoroscopic guidance the selected kidney was punctured and a percutaneous antegr maria luisa pyelogram was performed demonstrating a dilated collecting system. Serial dilatation was perform ed and a prescribed nephrostomy tube was placed within the renal pelvis and sutured in place. Conscious sedation was performed with the prescribed dosages and duration as above. The patient tole rated the procedure well and there were no complications. EKG and oximetry remained stable throughou t the procedure. The patient was sent to post anesthesia recovery in stable condition. CONCLUSION: Uncomplicated nephrostomy tube placement as above. Mario Calix MD on June 03, 2016 at 13:36 Board Certified Radiologist. This report was verified electronically.
--- NOTE | 2016-06-03 13:40 | RADRPT ---
EXAM DATE/TIME: 06/03/2016 10:12 [facility] COMPARISON: No previous studies available for comparison. INDICATIONS : Patient is in need of placement of bilateral nephrostomy tubes due to severe hydronephrosis. MEDICAL HISTORY : History of bladder cancer, neurogenic bladder, spinal tumor, HTN, PAD. SURGICAL HISTORY : History of bladder resection, spinal tumor resection, multiple cystoscopies. ENCOUNTER: Initial ACUITY: 2 days PAIN SCORE: 7/10 LOCATION: Bilateral lower back FLUORO TIME: 3.5 minutes SEDATION TIME: 45 minutes CONTRAST: 20 cc Omnipaque (iohexol) 350 MEDICATION(S): 1.) 5 mg midazolam (Versed) IV 2.) 250 mcg fentanyl (Sublimaze) IV 3.) 500 mg levofloxacin (Levaquin) IV Intra-procedural antibiotics were given as prescribed above. DEVICE(S): 1.) 8 [place] 25cm nephrostomy catheter Flexima PROCEDURE : 1. Ultrasound-guided puncture of the kidney. 2. Antegrade percutaneous pyelogram. 3. Percutaneous nephrostomy placement. 4. Conscious sedation with continuous EKG and oximetry monitoring. The risks, benefits and alternatives to the procedure were explained and verbal and written consent w as obtained. The site was prepped in sterile fashion. Full sterile technique was used, including ca p, mask, sterile gloves and gown and a large sterile sheet. Hand hygiene and 2% chlorhexidine and/or betadine/alcohol prep was utilized per protocol for cutaneous antisepsis. The skin and subcutaneous tissues were infiltrated with local anesthetic solution. With ultrasound and fluoroscopic guidance the selected kidney was punctured and a percutaneous antegr maria luisa pyelogram was performed demonstrating a dilated collecting system. Serial dilatation was perform ed and a prescribed nephrostomy tube was placed within the renal pelvis and sutured in place. Significant blood was identified within the urine following the procedure. During observation the den sity of blood was clearing. Conscious sedation was performed with the prescribed dosages and duration as above. The patient tole rated the procedure well and there were no complications. EKG and oximetry remained stable throughou t the procedure. The patient was sent to post anesthesia recovery in stable condition. CONCLUSION: Percutaneous nephrostomy tube placement as above. Significant hematuria following a right nephrostomy tube placement. Mario Calix MD on June 03, 2016 at 13:38 Board Certified Radiologist. This report was verified electronically.
[2016-06-03] MEDS: MORPHINE SULFATE 4 MG/ML INJ IV PUSH PRN (14:04)
[2016-06-03] MEDS: LORazepam 0.5 MG TAB PO PRN ×2 (14:24→23:54)
[2016-06-03] MEDS ORDERED: HYDROmorphone HCL PF 1 MG/ML VIAL IV PRN (14:30)
[2016-06-03] MEDS ORDERED: NALOXONE HCL 0.4 MG/ML AMP IV PRN (14:30)
[2016-06-03] MEDS ORDERED: MORPHINE SULFATE 8 MG/ML INJ IV PUSH ONE (14:45)
[2016-06-03] MEDS: PANTOPRAZOLE SODIUM 40 MG VIAL IV PUSH SCH (16:00)
[2016-06-03] MEDS: HYDROmorphone HCL PF 1 MG/ML VIAL IV PRN ×3 (16:02→23:54)
[2016-06-03 16:41] LABS: AUTOMATED NEUTROPHIL # 9.8 TH/MM3 (1.8-7.7); BASOPHIL # 0.1 TH/MM3 (0-0.2); BASOPHIL % 0.5 % (0.0-2.0); EOSINOPHIL # 0.5 TH/MM3 (0-0.4); EOSINOPHIL % 4.3 % (0.0-4.0); HEMATOCRIT 23.3 % (39.0-51.0); HEMO FLAGS DIFF FINAL; LYMPH % 9.6 % (9.0-44.0); LYMPHOCYTE # 1.2 TH/MM3 (1.0-4.8); MEAN CELL VOLUME 88.3 FL (80.0-100.0); MEAN CORPUSCULAR HEMOGLOBIN 30.2 PG (27.0-34.0); MEAN CORPUSCULAR HGB CONC 34.3 % (32.0-36.0); MONO % 6.6 % (0.0-8.0); PLATELET COUNT 123 TH/MM3 (150-450); RED BLOOD COUNT 2.63 MIL/MM3 (4.50-5.90); RED CELL DISTRIBUTION WIDTH 16.8 % (11.6-17.2); WHITE BLOOD COUNT 12.5 TH/MM3 (4.0-11.0)
[2016-06-03 16:56] LABS: ALT (GPT) 17 U/L (12-78); ANION GAP 8 MEQ/L (5-15); AST (GOT) 19 U/L (15-37); BICARBONATE 26.3 MEQ/L (21.0-32.0); BLOOD UREA NITROGEN 23 MG/DL (7-18); CHLORIDE 115 MEQ/L (98-107); GLOMERULAR FILTRATION RATE 18 ML/MIN (>89); POTASSIUM 3.6 MEQ/L (3.5-5.1); SODIUM (NA) 149 MEQ/L (136-145)
[2016-06-03 16:59] LABS: ALKALINE PHOSPHATASE 82 U/L (45-117); TOTAL BILIRUBIN ADULT 0.6 MG/DL (0.2-1.0)
[2016-06-03] MEDS: DAPTOmycin INJ 320 MG in SODIUM CHLORIDE 0.9% INJ 100 ML IV SCH (20:10)
[2016-06-03] MEDS: FAT EMULSION 20% INJ 250 ML (@10 mls/hr) IV-CENTRAL SCH (20:12)
[2016-06-03] MEDS: CLINIMIX 4.25/25 (Cust.Renal Central) 1000 mL- </= 42 mls/hr IV-CENTRAL SCH ×8 (20:12)
[2016-06-03] MEDS: ONDANSETRON HCL 4 MG/2 ML VIAL IV PUSH PRN (23:09)
[2016-06-03] MEDS ORDERED: ACETAMINOPHEN 1000 MG/100 ML VIAL IV ONE (23:15)
[2016-06-04] VITALS (21 sets, daily range): BP systolic 138–178; BP diastolic 81–99; PULSE 76–140; RESP 18–22; TEMP 98–102; O2SAT 95–98
[2016-06-04] MEDS ORDERED: ACETAMINOPHEN 1000 MG/100 ML VIAL IV ONE (03:45)
[2016-06-04] MEDS ORDERED: SODIUM CHLOR 0.45% 1000 ML INJ 1,000 ML IV ONE (03:45)
[2016-06-04] MEDS ORDERED: LACTATED RINGER'S 1000 ML INJ 1,000 ML IV ONE ×2 (04:00→05:00)
[2016-06-04] MEDS: ONDANSETRON HCL 4 MG/2 ML VIAL IV PUSH PRN ×3 (04:32→23:36)
[2016-06-04] MEDS: HYDROmorphone HCL PF 1 MG/ML VIAL IV PRN ×4 (04:33→20:19)
--- NOTE | 2016-06-04 04:47 | RADRPT ---
EXAM DATE/TIME: 06/04/2016 03:48 [facility] COMPARISON: No previous studies available for comparison. INDICATIONS : Fever. MEDICAL HISTORY : Hypertension. Carcinoma, bladder. SURGICAL HISTORY : Nephrostomy ENCOUNTER: Initial ACUITY: 1 day PAIN SCORE: 0/10 LOCATION: Bilateral chest FINDINGS: The cardiac silhouette is normal in transverse diameter. The lungs are free of acute parenchymal opac ity. No effusions are identified. [id number] is in place via right internal jugular approach with its tip in the superior vena cava. CONCLUSION: No acute cardiopulmonary disease. Abdullahi Dos Santos MD on June 04, 2016 at 4:45 Board Certified Radiologist. This report was verified electronically.
[2016-06-04 04:53] LABS: AUTOMATED NEUTROPHIL # 14.3 TH/MM3 (1.8-7.7); BASOPHIL % 0.2 % (0.0-2.0); EOSINOPHIL # 0.3 TH/MM3 (0-0.4); EOSINOPHIL % 1.5 % (0.0-4.0); HEMO FLAGS DIFF FINAL; LYMPH % 8.3 % (9.0-44.0); LYMPHOCYTE # 1.4 TH/MM3 (1.0-4.8); MEAN CELL VOLUME 88.9 FL (80.0-100.0); MEAN CORPUSCULAR HEMOGLOBIN 30.3 PG (27.0-34.0); MEAN CORPUSCULAR HGB CONC 34.1 % (32.0-36.0); MONO % 6.6 % (0.0-8.0); NEUT % 83.4 % (16.0-70.0); PLATELET COUNT 134 TH/MM3 (150-450); RED BLOOD COUNT 2.59 MIL/MM3 (4.50-5.90); RED CELL DISTRIBUTION WIDTH 16.8 % (11.6-17.2); WHITE BLOOD COUNT 17.1 TH/MM3 (4.0-11.0)
[2016-06-04 04:56] LABS: BLOOD, URINE LARGE (NEG); COMMENT (UR) CULTURE INDICATED; CULTURE IF INDICATED CULTURE INDICATED; GLUCOSE,URINE NEG (NEG); KETONE, URINE NEG (NEG); NITRITE,URINE NEG (NEG)
[2016-06-04 04:57] LABS: BICARBONATE 24.6 MEQ/L (21.0-32.0); MAGNESIUM 1.7 MG/DL (1.5-2.5); POTASSIUM 3.8 MEQ/L (3.5-5.1)
[2016-06-04 04:57] LABS: URINE COLOR RED (YELLW/STRAW)
[2016-06-04] MEDS: ENALAPRILAT 2.5 MG/2 ML VIAL IV PUSH PRN (06:30)
[2016-06-04] MEDS: ACETAMINOPHEN/HYDROcodone 325 MG/10 MG TAB PO PRN ×4 (06:38→23:36)
--- NOTE | 2016-06-04 07:37 | HHI.PR ---
Subjective Remarks Days he has more pain now than before. Says he was not able to sleep. Has back pain and also now more abdominal pain difusse, worse on the right side. No feveror chils. Tachycardic. No diaphoresis. Denies chest pain. Less nausea, tolerates clears and wants to try regular food. Objective Vitals Vital Signs Date Time Temp Pulse Resp B/P Pulse Ox O2 Delivery O2 Flow Rate FiO2 06/04/16 06:10 100.5 118 18 175/92 96 06/04/16 06:10 122 06/04/16 04:50 102.0 140 22 145/88 95 06/04/16 04:00 101.9 135 19 178/90 96 06/04/16 00:00 98.8 119 19 138/89 96 06/03/16 23:00 100.7 124 19 179/95 98 06/03/16 20:00 97.9 108 18 156/89 99 06/03/16 16:00 97.6 95 18 168/85 99 06/03/16 12:30 64 16 146/80 96 06/03/16 12:30 68 16 150/85 96 06/03/16 12:00 56 16 161/93 96 06/03/16 11:45 68 16 159/91 96 06/03/16 11:30 97.3 66 16 157/83 96 06/03/16 09:10 98 21 06/03/16 08:00 97.2 89 14 166/86 96 I/O 06/03/16 06/03/16 06/03/16 06/04/16 06/04/16 06/04/16 07:00 15:00 23:00 07:00 15:00 23:00 Intake Total 0 ml 240 ml 480 ml 480 ml Output Total 600 ml 550 ml 1575 ml 700 ml Balance -600 ml -310 ml -1095 ml -220 ml Intake Oral 0 ml 240 ml 480 ml 480 ml Output Urine Total 600 ml 550 ml 50 ml 25 ml Drainage Total 1525 ml 675 ml # Bowel Movements 0 0 Result Diagram: 06/04/1641906/04/16419 Imaging Last Impressions Chest X-Ray 06/04/16 3095 Signed Impressions: Service Date/Time: Saturday, June 04, 2016 03:48 - CONCLUSION: No acute cardiopulmonary disease. Abdullahi Dos Santos MD Nephrostomy 06/03/16 0000 Signed Impressions: Service Date/Time: Friday, June 03, 2016 10:12 - CONCLUSION: Percutaneous nephrostomy tube placement as above. Significant hematuria following a right nephrostomy tube placement. Mario Calix MD Bone Scan Nuclear Medicine 06/02/16 0000 Signed Impressions: Service Date/Time: May 15:35 - CONCLUSION: No evidence of bony metastatic disease Ochoa Crow MD Lower Extremity Ultrasound 06/01/16 0000 Signed Impressions: Service Date/Time: Wednesday, June 01, 2016 20:57 - CONCLUSION: No DVT in the right leg. Scar Prasad MD Abdomen/Pelvis CT 06/01/16 0000 Signed Impressions: Service Date/Time: Wednesday, June 01, 2016 18:19 - CONCLUSION: 1. Bilateral new severe hydronephrosis. 2. Heterogeneous appearance to the bladder could be from hematoma and/or mass. 3. Multiple pelvic masses are again noted, some of which are new, with increase in size of pelvic lymphadenopathy and retroperitoneal lymphadenopathy. Scar Prasad MD Objective Remarks GENERAL: This is a pleasant 50 yo male, well-nourished, well-developed patient , in no apparent distress. SKIN: Pale. No rashes, ecchymoses or lesions. Cool and dry. HEAD: Atraumatic. Normocephalic. No temporal or scalp tenderness. EYES: Pupils equal round and reactive. Extraocular motions intact. No scleral icterus. No injection or drainage. ENT: Nose without bleeding, purulent drainage or septal hematoma. Throat without erythema, tonsillar hypertrophy or exudate. Uvula midline. Airway patent. NECK: Trachea midline. No JVD or lymphadenopathy. Supple, nontender, no meningeal signs. CARDIOVASCULAR: Regular rate and rhythm without murmurs, gallops, or rubs. RESPIRATORY: Clear to auscultation. Breath sounds equal bilaterally. No wheezes , rales, or rhonchi. GASTROINTESTINAL: Abdomen soft, non-tender, nondistended. No hepato-splenomegaly , or palpable masses. No guarding. MUSCULOSKELETAL: Extremities without clubbing, cyanosis, or edema. No joint tenderness, effusion, or edema noted. No calf tenderness. Negative Homans sign bilaterally. NEUROLOGICAL: Awake and alert. Cranial nerves II through XII intact. Motor and sensory grossly within normal limits. Five out of 5 muscle strength in all muscle groups. Normal speech. : Zuniga in place with hematuria. Procedures nephrostomy tube placement by IR 06/03/16 A/P Assessment and Plan 50 year old male with indwelling Zuniga secondary to bladder cancer with: Nausea/vomiting, failure to thrive unable to tolerate PO meds. Improving. Bladder cancer: Patient undergoing chemotherapy treatment.-Consult Dr. Lee. Hematuria. Bilateral hydronephrosis. Consult Dr Lee urology. Discussed with Dr Lee, he recommends poss surgery. Patient with bilateral hydronephrosis, also recurrent hematuria requiring transfusions multiple times. Patient also has worsening pelvic/retroperitoneal lymphadenopathy on this CT comparing to last CT dispite undergoing chemo. Recurrent UTI. With staph epi and margareth on previous cultures. Treated as OP with fluconazole and doxy. UA reviewed, U cx with margareth Diet as tolerated. GI consult , consider EGD if no improvement. ID specialist consulted, appreciate recommendations continue Fluconazole IV. DC gentamycin IV. Started daptomycin DENA on CKD baseline Cr 1.6 previously and on this admission Cr of 2.2. Likely 2 /2 decreased PO intake. On IVF. Monitor UOP. Monitor kidney indices. Improving. CT abd pelvis with PO contrast reviewed, findings discussed with urology Dr Lee: 1. Bilateral new severe hydronephrosis. 2. Heterogeneous appearance to the bladder could be from hematoma and/or mass. 3. Multiple pelvic masses are again noted, some of which are new, with increase in size of pelvic lymphadenopathy and retroperitoneal lymphadenopathy. S/P nephrostomy tube placement by IR 06/03/16 Hypertension/Sinus Tachycardia: Start small dose 12.5 mg po bid metoprolol. Clonidine prn Anemia: Secondary to hematuria. H/H stable so far, continue to monitor as patient has hematuria. Continue iron supplement as OP bc he has nausea/vomiting at this time. Transfuse of need. Hypertension: - On hold lisinopril 2/2 DENA on CKD, and continue amlodipine. Monitor VS Chronic back pain and Anxiety: Continue [place] and Xanax as needed. Morphine IV for breakthrough pain DVT ppx SCD/TEDS. Chemical ppx is contraindicated 2/2 hematuria Discussed with the patient, nurse. Rose Schmidt MD Jun 04, 2016 07:37
[2016-06-04] MEDS: PHYTONADIONE 100 MCG PO SCH (09:00)
[2016-06-04] MEDS ORDERED: cloNIDine HCL 0.1 MG TAB PO PRN (11:00)
[2016-06-04] MEDS: SODIUM CHLORIDE 0.9% FLUSH 5 ML FLUSH FLUSH SCH ×2 (11:41→20:18)
[2016-06-04] MEDS: LACTOBACILLUS ACIDOPHILUS 1 GM PACKET PO SCH ×4 (12:27→20:08)
[2016-06-04] MEDS: SODIUM CHLOR 0.45% 1000 ML INJ 1,000 ML IV SCH ×2 (12:27→22:00)
[2016-06-04] MEDS: METOPROLOL TARTRATE 25 MG TAB PO SCH ×2 (12:28→20:08)
[2016-06-04] MEDS: FLUCONAZOLE 200 MG PREMIX BAG 100 ML IV SCH (13:35)
--- NOTE | 2016-06-04 14:23 | EKG ---
Date Performed: 06/04/2016 Time Performed: 05:13:39 PTAGE: 50 years EKG: SINUS TACHYCARDIA NONSPECIFIC ST & T-WAVE ABNORMALITY ABNORMAL RHYTHM ECG Compared to prior tracing no significant change PREVIOUS TRACING : 01/22/2016 15.30 DOCTOR: Tam Lemus Interpretating Date/Time 06/04/2016 14:22:37
[2016-06-04] MEDS: PANTOPRAZOLE SODIUM 40 MG VIAL IV PUSH SCH (16:38)
[2016-06-04] MEDS: CLINIMIX 4.25/25 (Cust.Renal Central) 1000 mL- </= 42 mls/hr IV-CENTRAL SCH ×8 (20:07)
[2016-06-04] MEDS: FAT EMULSION 20% INJ 250 ML (@10 mls/hr) IV-CENTRAL SCH (20:08)
[2016-06-04] MEDS: ACETAMINOPHEN 325 MG TAB PO PRN (20:24)
[2016-06-05] VITALS (33 sets, daily range): BP systolic 129–161; BP diastolic 75–89; PULSE 81–108; RESP 18–20; TEMP 98–100.9; O2SAT 94–98
[2016-06-05] MEDS: HYDROmorphone HCL PF 1 MG/ML VIAL IV PRN ×6 (01:29→23:35)
[2016-06-05 04:16] LABS: AUTOMATED NEUTROPHIL # 14.4 TH/MM3 (1.8-7.7); BASOPHIL # 0.1 TH/MM3 (0-0.2); BASOPHIL % 0.6 % (0.0-2.0); EOSINOPHIL # 0.4 TH/MM3 (0-0.4); EOSINOPHIL % 1.9 % (0.0-4.0); LYMPH % 14.8 % (9.0-44.0); LYMPHOCYTE # 2.9 TH/MM3 (1.0-4.8); MEAN CELL VOLUME 90.9 FL (80.0-100.0); MEAN CORPUSCULAR HEMOGLOBIN 30.4 PG (27.0-34.0); MEAN CORPUSCULAR HGB CONC 33.5 % (32.0-36.0); NEUT % 73.7 % (16.0-70.0); PLATELET COUNT 138 TH/MM3 (150-450); RED BLOOD COUNT 1.93 MIL/MM3 (4.50-5.90); RED CELL DISTRIBUTION WIDTH 17.2 % (11.6-17.2); WHITE BLOOD COUNT 19.5 TH/MM3 (4.0-11.0)
[2016-06-05 04:36] LABS: BICARBONATE 23.9 MEQ/L (21.0-32.0); MAGNESIUM 1.9 MG/DL (1.5-2.5); POTASSIUM 3.8 MEQ/L (3.5-5.1)
[2016-06-05 04:45] LABS: HEMATOCRIT 17.5 % (39.0-51.0); HEMO FLAGS DIFF FINAL
[2016-06-05] MEDS ORDERED: SODIUM CHLOR 0.9% 250 ML INJ 250 ML IV ONE (05:00)
[2016-06-05] MEDS ORDERED: diphenhydrAMINE HCL 25 MG CAP PO PRN (05:00)
[2016-06-05] MEDS ORDERED: ACETAMINOPHEN 325 MG TAB PO PRN (05:00)
--- NOTE | 2016-06-05 08:07 | HHI.PR ---
Subjective Remarks Seen superintendent measurement today. Has back pain and abdominal pain worse suprapubic area. The patient says he still has pain fairly controlled by meds. No nausea, vomiting, diarrhea or constipation. Still with hematuria. Drains with bloody discharge. Hgb of 5.9 , transfuse 2UpRBC. Objective Vitals Vital Signs Date Time Temp Pulse Resp B/P Pulse Ox O2 Delivery O2 Flow Rate FiO2 06/05/16 06:00 100 06/05/16 05:00 102 06/05/16 04:00 98 06/05/16 03:00 100.0 90 20 160/88 96 06/05/16 03:00 90 06/05/16 02:00 89 06/05/16 01:00 86 06/05/16 00:00 88 06/05/16 00:00 98.6 82 20 154/82 96 06/04/16 23:00 84 06/04/16 22:00 88 06/04/16 21:00 100 06/04/16 20:00 102 06/04/16 20:00 100.0 88 162/81 06/04/16 19:00 101 06/04/16 19:00 101.0 101 20 176/90 98 06/04/16 18:00 95 06/04/16 17:00 93 06/04/16 16:00 93 06/04/16 15:00 97 06/04/16 15:00 98.7 95 22 162/89 97 06/04/16 14:00 95 06/04/16 13:00 117 06/04/16 12:00 114 06/04/16 11:00 135 06/04/16 11:00 99.5 127 22 159/99 96 06/04/16 10:00 118 06/04/16 09:00 130 I/O 06/04/16 06/04/16 06/04/16 06/05/16 06/05/16 06/05/16 07:00 15:00 23:00 07:00 15:00 23:00 Intake Total 480 ml 2492 ml 4801 ml 2336 ml Output Total 700 ml 3315 ml 3300 ml Balance -220 ml 2492 ml 1486 ml -964 ml Intake Oral 480 ml 1440 ml 460 ml IV Total 1562 ml 2729 ml 1226 ml TPN/PPN 620 ml 508 ml 521 ml Lipid 310 ml 124 ml 129 ml Output Urine Total 25 ml 1670 ml 350 ml Drainage Total 675 ml 1645 ml 2950 ml # Bowel Movements 0 Result Diagram: 06/05/164 06/05/164 Imaging Last Impressions Chest X-Ray 06/04/16 0347 Signed Impressions: Service Date/Time: Saturday, June 04, 2016 03:48 - CONCLUSION: No acute cardiopulmonary disease. Abdullahi Dos Santos MD Nephrostomy 06/03/16 0000 Signed Impressions: Service Date/Time: Friday, June 03, 2016 10:12 - CONCLUSION: Percutaneous nephrostomy tube placement as above. Significant hematuria following a right nephrostomy tube placement. Mario Calix MD Bone Scan Nuclear Medicine 06/02/16 0000 Signed Impressions: Service Date/Time: May 15:35 - CONCLUSION: No evidence of bony metastatic disease Ochoa Crow MD Lower Extremity Ultrasound 06/01/16 0000 Signed Impressions: Service Date/Time: Wednesday, June 01, 2016 20:57 - CONCLUSION: No DVT in the right leg. Scar Prasad MD Abdomen/Pelvis CT 06/01/16 0000 Signed Impressions: Service Date/Time: Wednesday, June 01, 2016 18:19 - CONCLUSION: 1. Bilateral new severe hydronephrosis. 2. Heterogeneous appearance to the bladder could be from hematoma and/or mass. 3. Multiple pelvic masses are again noted, some of which are new, with increase in size of pelvic lymphadenopathy and retroperitoneal lymphadenopathy. Scar Prasad MD Objective Remarks GENERAL: This is a pleasant 50 yo male, well-nourished, well-developed patient , in no apparent distress. SKIN: Pale. No rashes, ecchymoses or lesions. Cool and dry. HEAD: Atraumatic. Normocephalic. No temporal or scalp tenderness. EYES: Pupils equal round and reactive. Extraocular motions intact. No scleral icterus. No injection or drainage. ENT: Nose without bleeding, purulent drainage or septal hematoma. Throat without erythema, tonsillar hypertrophy or exudate. Uvula midline. Airway patent. NECK: Trachea midline. No JVD or lymphadenopathy. Supple, nontender, no meningeal signs. CARDIOVASCULAR: Regular rate and rhythm without murmurs, gallops, or rubs. RESPIRATORY: Clear to auscultation. Breath sounds equal bilaterally. No wheezes , rales, or rhonchi. GASTROINTESTINAL: Abdomen soft, non-tender, nondistended. No hepato-splenomegaly , or palpable masses. No guarding. MUSCULOSKELETAL: Extremities without clubbing, cyanosis, or edema. No joint tenderness, effusion, or edema noted. No calf tenderness. Negative Homans sign bilaterally. NEUROLOGICAL: Awake and alert. Cranial nerves II through XII intact. Motor and sensory grossly within normal limits. Five out of 5 muscle strength in all muscle groups. Normal speech. : Zuniga in place with hematuria. Procedures nephrostomy tube placement by IR 06/03/16 A/P Assessment and Plan 50 year old male with indwelling Zuniga secondary to bladder cancer with: Nausea/vomiting, failure to thrive unable to tolerate PO meds. Improving. Bladder cancer: Patient undergoing chemotherapy treatment.-Consult Dr. Lee. Hematuria. Bilateral hydronephrosis. Consult Dr Lee urology. Discussed with Dr Lee, he recommends poss surgery. Patient with bilateral hydronephrosis, also recurrent hematuria requiring transfusions multiple times. Patient also has worsening pelvic/retroperitoneal lymphadenopathy on this CT comparing to last CT dispite undergoing chemo. Recurrent UTI. With staph epi and margareth on previous cultures. Treated as OP with fluconazole and doxy. UA reviewed, U cx with margareth Diet as tolerated. GI consult , consider EGD if no improvement. ID specialist consulted, appreciate recommendations continue Fluconazole IV. DC gentamycin IV. Started daptomycin DENA on CKD baseline Cr 1.6 previously and on this admission Cr of 2.2. Likely 2 /2 decreased PO intake. On IVF. Monitor UOP. Monitor kidney indices. Improving. CT abd pelvis with PO contrast reviewed, findings discussed with urology Dr Lee: 1. Bilateral new severe hydronephrosis. 2. Heterogeneous appearance to the bladder could be from hematoma and/or mass. 3. Multiple pelvic masses are again noted, some of which are new, with increase in size of pelvic lymphadenopathy and retroperitoneal lymphadenopathy. S/P nephrostomy tube placement by IR 06/03/16 Hypertension/Sinus Tachycardia: Start small dose 12.5 mg po bid metoprolol. Clonidine prn Anemia: Secondary to hematuria. H/H stable so far, continue to monitor as patient has hematuria. 1/15.17 Hgb of 5.9, transfuse 2UpRBC. Monitor H/H and transfuse if HGB < 7 or if HGB < 9 and patient is symptomatic. Hypertension: - On hold lisinopril 2/2 DENA on CKD, and continue amlodipine. Monitor VS Chronic back pain and Anxiety: Continue [place] and Xanax as needed. Morphine IV for breakthrough pain DVT ppx SCD/TEDS. Chemical ppx is contraindicated 2/2 hematuria Discussed with the patient, nurse. Rose Schmidt MD Jun 05, 2016 08:07
[2016-06-05] MEDS: PHYTONADIONE 100 MCG PO SCH (08:14)
[2016-06-05] MEDS: LACTOBACILLUS ACIDOPHILUS 1 GM PACKET PO SCH ×4 (08:14→21:00)
[2016-06-05] MEDS: METOPROLOL TARTRATE 25 MG TAB PO SCH ×2 (08:14→20:16)
[2016-06-05] MEDS: ACETAMINOPHEN/HYDROcodone 325 MG/10 MG TAB PO PRN ×4 (08:14→21:36)
[2016-06-05] MEDS: SODIUM CHLORIDE 0.9% FLUSH 5 ML FLUSH FLUSH SCH ×2 (08:15→20:06)
[2016-06-05] MEDS: SODIUM CHLOR 0.45% 1000 ML INJ 1,000 ML IV SCH ×2 (08:15→20:15)
[2016-06-05] MEDS: LORazepam 2 MG/ML VIAL IV PUSH PRN (11:14)
[2016-06-05] MEDS: FLUCONAZOLE 200 MG PREMIX BAG 100 ML IV SCH (13:19)
--- NOTE | 2016-06-05 15:46 | EKG ---
Date Performed: 06/04/2016 Time Performed: 15:04:44 PTAGE: 50 years EKG: Sinus rhythm . Septal T wave changes are nonspecific Rate has slowed since prior tracing Nonspecific ST-T wave rishi nges persists but largely improved Borderline ECG PREVIOUS TRACING : 06/04/2016 05.13 DOCTOR: Tam Lemus Interpretating Date/Time 06/05/2016 15:45:15
[2016-06-05] MEDS: ACETAMINOPHEN/HYDROcodone 325 MG/5 MG TAB PO PRN ×2 (16:40→16:41)
[2016-06-05] MEDS: PANTOPRAZOLE SODIUM 40 MG VIAL IV PUSH SCH (16:40)
[2016-06-05] MEDS: DAPTOmycin INJ 320 MG in SODIUM CHLORIDE 0.9% INJ 100 ML IV SCH (20:16)
[2016-06-05] MEDS: FAT EMULSION 20% INJ 250 ML (@10 mls/hr) IV-CENTRAL SCH (20:17)
[2016-06-05] MEDS: CLINIMIX 4.25/25 (Cust.Renal Central) 1000 mL- </= 42 mls/hr IV-CENTRAL SCH ×8 (20:17)
[2016-06-06] VITALS (22 sets, daily range): BP systolic 142–176; BP diastolic 73–89; PULSE 77–108; RESP 18–20; TEMP 98.3–99.3; O2SAT 95–100
[2016-06-06] MEDS: SODIUM CHLOR 0.45% 1000 ML INJ 1,000 ML IV SCH ×2 (04:00→14:00)
[2016-06-06] MEDS: ACETAMINOPHEN/HYDROcodone 325 MG/10 MG TAB PO PRN ×4 (05:59→20:09)
[2016-06-06] MEDS: HYDROmorphone HCL PF 1 MG/ML VIAL IV PRN ×2 (06:00→14:32)
[2016-06-06 06:59] LABS: AUTOMATED NEUTROPHIL # 10.5 TH/MM3 (1.8-7.7); BASOPHIL % 0.2 % (0.0-2.0); EOSINOPHIL # 0.8 TH/MM3 (0-0.4); EOSINOPHIL % 5.4 % (0.0-4.0); LYMPH % 14.8 % (9.0-44.0); LYMPHOCYTE # 2.1 TH/MM3 (1.0-4.8); MEAN CELL VOLUME 85.8 FL (80.0-100.0); MEAN CORPUSCULAR HEMOGLOBIN 28.7 PG (27.0-34.0); MEAN CORPUSCULAR HGB CONC 33.5 % (32.0-36.0); NEUT % 72.6 % (16.0-70.0); PLATELET COUNT 169 TH/MM3 (150-450); RED BLOOD COUNT 2.41 MIL/MM3 (4.50-5.90); RED CELL DISTRIBUTION WIDTH 17.9 % (11.6-17.2); WHITE BLOOD COUNT 14.4 TH/MM3 (4.0-11.0)
[2016-06-06 07:15] LABS: HEMO FLAGS DIFF FINAL
[2016-06-06 07:17] LABS: BICARBONATE 27.4 MEQ/L (21.0-32.0); MAGNESIUM 1.7 MG/DL (1.5-2.5)
[2016-06-06 07:20] LABS: HEMATOCRIT 20.7 % (39.0-51.0)
[2016-06-06] MEDS ORDERED: POTASSIUM CHLOR 10 MEQ PREMIX 100 ML IV SCH (08:30)
--- NOTE | 2016-06-06 08:49 | HHI.PR ---
Subjective Remarks Pt seen and examined. Feeling better. Less nausea. s/p b/l PCNT's on Monday. Creatinine down to 2.0 with Hgb at 6.9. Objective Vital Signs Vital Signs Date Time Temp Pulse Resp B/P Pulse Ox O2 Delivery O2 Flow Rate FiO2 06/06/16 06:00 83 06/06/16 05:00 102 06/06/16 04:00 77 06/06/16 03:00 98.6 80 18 150/73 95 06/06/16 03:00 78 06/06/16 00:00 83 06/06/16 00:00 98.6 83 18 146/80 95 06/05/16 23:00 81 06/05/16 22:00 85 06/05/16 21:00 101 06/05/16 20:00 106 06/05/16 19:00 99.2 106 18 161/88 98 06/05/16 18:00 97 06/05/16 17:00 100 06/05/16 16:00 98.0 101 20 142/78 95 06/05/16 16:00 95 06/05/16 15:30 108 18 152/82 94 06/05/16 15:15 104 20 147/80 95 06/05/16 15:00 98.9 104 20 148/84 96 06/05/16 15:00 95 06/05/16 15:00 98.6 95 18 142/80 95 06/05/16 14:45 99.2 102 18 142/80 95 06/05/16 14:30 99.7 98 20 141/77 94 06/05/16 14:00 102 06/05/16 13:00 102 06/05/16 12:30 100.9 104 20 140/78 06/05/16 12:00 100 06/05/16 11:45 99.8 100 18 138/80 06/05/16 11:30 99.2 102 20 129/76 06/05/16 11:15 99.0 108 20 155/89 06/05/16 11:00 98.7 105 18 153/75 06/05/16 11:00 108 06/05/16 11:00 98.7 105 20 153/82 95 06/05/16 10:35 98.6 103 20 150/75 06/05/16 10:00 89 06/05/16 09:00 96 I/O 06/05/16 06/05/16 06/05/16 06/06/16 06/06/16 06/06/16 07:00 15:00 23:00 07:00 15:00 23:00 Intake Total 2336 ml 2276 ml 1703 ml Output Total 3300 ml 4835 ml 2370 ml Balance -964 ml -2559 ml -667 ml Intake Oral 460 ml 620 ml 360 ml IV Total 1226 ml 932 ml 854 ml TPN/PPN 521 ml 591 ml 399 ml Lipid 129 ml 133 ml 90 ml Output Urine Total 350 ml 120 ml 20 ml Drainage Total 2950 ml 4715 ml 2350 ml # Bowel Movements 0 Result Diagram: 06/06/16 0545 06/06/1645 Objective Remarks Abd:soft,some tenderness, ND Zuniga now with clear urine 06/03 Abd:soft,nd, mild tenderness Zuniga: rahul urine 06/06 Abd:soft, tender on exam Urine: dark blood PCNT's both with bloody urine Assessment and Plan Assessment and Plan 50 y.o male with muscle invasive bladder cancer with evidence of worsening adenopathy and hydronephrosis. Bone scan to r/o ronald metastasis. IR consult to place bilateral nephrostomy tubes to help improve renal function Options of treatment discussed with family: Continued chemotherapy with XRT vs palliative surgery. If bone scan is negative would recommend palliative cystectomy. Pt understands this is not curative but longterm it would reduce readmissions and improve quality of life for now. Will need to correct anemia/thrombocytopenia and need to improve nutritional status. Will start TPN. Albumin is 2.4 at present. Hope to perform cystectomy next week. 06/03 50 y.o male with muscle invasive bladder cancer with evidence of worsening adenopathy and hydronephrosis. Bone scan negative for ronald metastasis. For bilateral PCNT's today Continue TPN For PICC line placement in near future 06/06 50 y.o male with muscle invasive bladder cancer For 2 more units of PRBC;s today PICC line today Replace K+ Continue TPN OR on Monday if Hgb at 10 or above Eulogio Lee DO Jun 06, 2016 08:49
[2016-06-06] MEDS: PHYTONADIONE 100 MCG PO SCH (09:00)
[2016-06-06] MEDS: LACTOBACILLUS ACIDOPHILUS 1 GM PACKET PO SCH ×4 (09:00→20:04)
[2016-06-06] MEDS ORDERED: ACETAMINOPHEN 325 MG TAB PO PRN (09:30)
[2016-06-06] MEDS ORDERED: diphenhydrAMINE HCL 25 MG CAP PO PRN (09:30)
[2016-06-06] MEDS: SODIUM CHLORIDE 0.9% FLUSH 5 ML FLUSH FLUSH SCH ×2 (09:40→20:03)
[2016-06-06] MEDS: METOPROLOL TARTRATE 25 MG TAB PO SCH ×2 (09:40→20:04)
[2016-06-06] MEDS: POTASSIUM CHLOR 20 MEQ PREMIX 100 ML IV SCH ×3 (09:51→15:57)
[2016-06-06] MEDS: LORazepam 2 MG/ML VIAL IV PUSH PRN (09:52)
--- NOTE | 2016-06-06 11:08 | PD.ONC.PN ---
Subjective Subjective Remarks Afebrile overnight. Patient continuing to have hematuria from blancas catheter as well as bilateral nephrostomy tubes. He received 2 units pRBC yesterday and is going to receive 2 units pRBC today. Objective Data Date Time Temp Pulse Resp B/P Pulse Ox O2 Delivery O2 Flow Rate FiO2 06/06/16 07:00 98.7 108 20 176/89 98 06/06/16 06:00 83 06/06/16 05:00 102 06/06/16 04:00 77 06/06/16 03:00 98.6 80 18 150/73 95 06/06/16 03:00 78 06/06/16 00:00 83 06/06/16 00:00 98.6 83 18 146/80 95 06/05/16 23:00 81 06/05/16 22:00 85 06/05/16 21:00 101 06/05/16 20:00 106 06/05/16 19:00 99.2 106 18 161/88 98 06/05/16 18:00 97 06/05/16 17:00 100 06/05/16 16:00 98.0 101 20 142/78 95 06/05/16 16:00 95 06/05/16 15:30 108 18 152/82 94 06/05/16 15:15 104 20 147/80 95 06/05/16 15:00 98.9 104 20 148/84 96 06/05/16 15:00 95 06/05/16 15:00 98.6 95 18 142/80 95 06/05/16 14:45 99.2 102 18 142/80 95 06/05/16 14:30 99.7 98 20 141/77 94 06/05/16 14:00 102 06/05/16 13:00 102 06/05/16 12:30 100.9 104 20 140/78 06/05/16 12:00 100 06/05/16 11:45 99.8 100 18 138/80 06/05/16 11:30 99.2 102 20 129/76 06/05/16 11:15 99.0 108 20 155/89 06/06/16 06/06/16 06/06/16 07:00 15:00 23:00 Intake Total 1703 ml Output Total 2370 ml Balance -667 ml Result Diagram: 06/06/16 0545 06/06/16 0545 Laboratory Results Laboratory Tests Test 06/06/16 06/06/16 05:45 09:19 White Blood Count 14.4 TH/MM3 Red Blood Count 2.41 MIL/MM3 Hemoglobin 6.9 GM/DL Hematocrit 20.7 % Mean Corpuscular Volume 85.8 FL Mean Corpuscular Hemoglobin 28.7 PG Mean Corpuscular Hemoglobin 33.5 % Concent Red Cell Distribution Width 17.9 % Platelet Count 169 TH/MM3 Mean Platelet Volume 8.3 FL Neutrophils (%) (Auto) 72.6 % Lymphocytes (%) (Auto) 14.8 % Monocytes (%) (Auto) 7.0 % Eosinophils (%) (Auto) 5.4 % Basophils (%) (Auto) 0.2 % Neutrophils # (Auto) 10.5 TH/MM3 Lymphocytes # (Auto) 2.1 TH/MM3 Monocytes # (Auto) 1.0 TH/MM3 Eosinophils # (Auto) 0.8 TH/MM3 Basophils # (Auto) 0.0 TH/MM3 CBC Comment DIFF FINAL Differential Comment Sodium Level 142 MEQ/L Potassium Level 3.0 MEQ/L Chloride Level 105 MEQ/L Carbon Dioxide Level 27.4 MEQ/L Anion Gap 10 MEQ/L Blood Urea Nitrogen 18 MG/DL Creatinine 2.02 MG/DL Estimat Glomerular Filtration 35 ML/MIN Rate Random Glucose 127 MG/DL Calcium Level 8.5 MG/DL Phosphorus Level 3.5 MG/DL Magnesium Level 1.7 MG/DL Blood Type B POSITIVE Crossmatch Leukocyte-Reduced Red Blood Cells Blood Bank Comment Culture Results Microbiology Date/Time Procedure Status Source Growth 06/04/16 04:15 Urine Culture - Final Complete Urine Clean Catch 10-50,000 CFU/ML MIXED GRAM POSITIVE ... 06/04/16 04:20 Aerobic Blood Culture - Preliminary Resulted Blood Line NO GROWTH IN 1 DAY 06/04/16 04:20 Anaerobic Blood Culture - Preliminary Resulted Blood Line NO GROWTH IN 1 DAY 06/04/16 04:45 Aerobic Blood Culture - Preliminary Resulted Blood Peripheral NO GROWTH IN 1 DAY 06/04/16 04:45 Anaerobic Blood Culture - Preliminary Resulted Blood Peripheral NO GROWTH IN 1 DAY Administered Medications Medications (Trade) Dose Ordered Sig/Ambika Route PRN Reason Start Time Stop Time Status Last Admin Dose Admin Amlodipine Besylate (Norvasc) 10 mg DAILY PO 06/02/16 09:00 06/06/16 09:40 Lactobacillus Acidophilus (Lactinex Pkt) 1 gm QID PO 06/01/16 13:00 06/06/16 09:00 IV Flush (NS Flush) 2 ml BID FLUSH 06/01/16 21:00 06/06/16 09:40 Acetaminophen 650 mg 650 mg Q4H PRN PO TEMP > 100.4 06/01/16 11:30 06/04/16 20:24 Fluconazole/ Sodium Chloride (Diflucan 200 Mg Premix Bag) 100 ml @ 100 mls/hr Q24H IV 06/01/16 13:00 06/05/16 13:19 Enalaprilat 2.5 mg 2.5 mg Q6H PRN IV PUSH SBP> OR = 180, DBP> OR = 100 06/01/16 16:00 06/04/16 06:30 Daptomycin/Sodium Chloride (Cubicin Inj/NS Inj) 100 ml @ 200 mls/hr Q48H IV 06/01/16 20:00 06/05/16 20:16 Pantoprazole Sodium (Protonix Inj) 40 mg Q24H IV PUSH 06/01/16 17:00 06/05/16 16:40 Lorazepam (Ativan Inj) 0.5 mg Q6H PRN IV PUSH nausea 06/01/16 19:00 06/06/16 09:52 Lorazepam 0.5 mg 0.5 mg Q8H PRN PO anxiety 06/02/16 11:00 06/03/16 23:54 Sodium Chloride 5.5 meq/Sodium Acetate 29.5 meq/ Potassium Chloride 20 meq/ Magnesium Chloride 5 meq/ Calcium Chloride 4.5 meq/ Multivitamins 10 ml/Folic Acid 1 mg/Amino Acids/ Dextrose 1,042.1719 ml @ 42 mls/hr Q24H IV-CENTRAL 06/02/16 20:00 06/05/16 20:17 Fat Emulsion Intravenous (Liposyn Iii 20% Inj) 250 ml @ 10 mls/hr Q24H IV-CENTRAL 06/02/16 20:00 06/05/16 20:17 Acetaminophen/ Hydrocodone Bitart ([place] 10-325 Mg) 1 tab Q4H PRN PO PAIN SCALE 6 TO 10 06/03/16 14:30 06/06/16 05:59 Hydromorphone HCl (Dilaudid Pf Inj) 1 mg Q4H PRN IV Pain 6-10;if unable to take PO 06/03/16 14:30 06/05/16 05:36 Hydromorphone HCl (Dilaudid Pf Inj) 1 mg Q4H PRN IV BREAKTHROUGH PAIN 06/03/16 14:30 06/06/16 06:00 Ondansetron HCl 4 mg 4 mg Q6H PRN IV PUSH nausea and vomiting 06/03/16 23:15 06/04/16 23:36 Sodium Chloride (1/2 NS 1000 ml Inj) 1,000 ml @ 100 mls/hr Q10H IV 06/04/16 12:00 06/06/16 04:00 Metoprolol Tartrate 12.5 mg 12.5 mg Q12HR PO 06/04/16 12:00 06/06/16 09:40 Potassium Chloride (KCl 20 Meq Premix Inj) 100 ml @ 50 mls/hr Q2H IV 06/06/16 09:00 06/06/16 14:59 06/06/16 09:51 Objective Remarks GENERAL: Middle aged male, sitting up in bed in nad. SKIN: Warm and dry. HEAD: Normocephalic. EYES: No injection or drainage. NECK: Supple, trachea midline. CARDIOVASCULAR: Regular rate and rhythm RESPIRATORY: Breath sounds equal bilaterally. No accessory muscle use. GASTROINTESTINAL: Abdomen soft, non-tender, nondistended. BACK: bilateral nephrostomy tubes in place, draining clear bloody fluid. EXTREMITIES: No cyanosis. NEUROLOGICAL: No obvious focal deficit. Awake, alert, and oriented x3. Assessment/Plan Problem List: (1) Invasive carcinoma of urinary bladder Status: Acute Plan: 06/06/17: agree with 2 units pRBC. Urology note reviewed--plan for OR Wed if hgb>10 06/03/16: bone scan is negative, urology plans to proceed with palliative cystectomy next week. bilateral percutaneous nephrostomy tubes placed in IR today. Options of treatment discussed with family: Continued chemotherapy with XRT vs palliative surgery. If bone scan is negative would recommend palliative cystectomy. 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 + hydronephrosis to account for acute renal failure, noted new adenopathy concerning for progression vs. reactive given new UTI with margareth and staph epidermidis. Assessment 50 y/o man with locally advance, muscle invasive bladder cancer with recurrent hematuria complicated by acute renal failure and BL hydronephrosis. Now s/p bilateral percutaneous nephrostomy tube placement. Plan 1. monitor CBC, electrolytes 2. agree with 2 units pRBC Attending Statement The exam, history, and the medical decision-making described in the above note were completed with the assistance of the mid-level provider. I reviewed and agree with the findings presented. I attest that I had a [id number] encounter with the patient on the same day, and personally performed and documented my assessment and findings in the medical record. Pt seen and examined. Urine output from nephrostomy tube still bloody. Discussed with pt plan for supportive transfusion, hgb goal 10. Monitor renal function recovery, cr 2.0, urine out put good. Abx per ID, cultures repeated pending. Cystectomy for palliation planned, chemo held for now until after cystectomy. Continue support. Jesika Wilkes Jun 06, 2016 11:08 Idalia Lee MD Jun 06, 2016 19:50
--- NOTE | 2016-06-06 13:05 | HHI.PR ---
Subjective Remarks HGB at 6.9 transfuse additional 2U pRBCs. He is tolerating some food, eating fruits. No appetite. Denies feevrs or chills. No n/v/d/c. BL Drains with bloody discharge. Zuniga with hematuria. Patient denies chest pain or sob. Objective Vitals Vital Signs Date Time Temp Pulse Resp B/P Pulse Ox O2 Delivery O2 Flow Rate FiO2 06/06/16 07:00 98.7 108 20 176/89 98 06/06/16 06:00 83 06/06/16 05:00 102 06/06/16 04:00 77 06/06/16 03:00 98.6 80 18 150/73 95 06/06/16 03:00 78 06/06/16 00:00 83 06/06/16 00:00 98.6 83 18 146/80 95 06/05/16 23:00 81 06/05/16 22:00 85 06/05/16 21:00 101 06/05/16 20:00 106 06/05/16 19:00 99.2 106 18 161/88 98 06/05/16 18:00 97 06/05/16 17:00 100 06/05/16 16:00 98.0 101 20 142/78 95 06/05/16 16:00 95 06/05/16 15:30 108 18 152/82 94 06/05/16 15:15 104 20 147/80 95 06/05/16 15:00 98.9 104 20 148/84 96 06/05/16 15:00 95 06/05/16 15:00 98.6 95 18 142/80 95 06/05/16 14:45 99.2 102 18 142/80 95 06/05/16 14:30 99.7 98 20 141/77 94 06/05/16 14:00 102 06/05/16 13:00 102 I/O 06/05/16 06/05/16 06/05/16 06/06/16 06/06/16 06/06/16 07:00 15:00 23:00 07:00 15:00 23:00 Intake Total 2336 ml 2276 ml 1703 ml Output Total 3300 ml 4835 ml 2370 ml Balance -964 ml -2559 ml -667 ml Intake Oral 460 ml 620 ml 360 ml IV Total 1226 ml 932 ml 854 ml TPN/PPN 521 ml 591 ml 399 ml Lipid 129 ml 133 ml 90 ml Output Urine Total 350 ml 120 ml 20 ml Drainage Total 2950 ml 4715 ml 2350 ml # Bowel Movements 0 Result Diagram: 06/06/16 0545 06/06/16 0545 Imaging Last Impressions Chest X-Ray 06/04/16 0347 Signed Impressions: Service Date/Time: Saturday, June 04, 2016 03:48 - CONCLUSION: No acute cardiopulmonary disease. Abdullahi Dos Santos MD Nephrostomy 06/03/16 0000 Signed Impressions: Service Date/Time: Friday, June 03, 2016 10:12 - CONCLUSION: Percutaneous nephrostomy tube placement as above. Significant hematuria following a right nephrostomy tube placement. Mario Calix MD Bone Scan Nuclear Medicine 06/02/16 0000 Signed Impressions: Service Date/Time: May 15:35 - CONCLUSION: No evidence of bony metastatic disease Ochoa Crow MD Lower Extremity Ultrasound 06/01/16 0000 Signed Impressions: Service Date/Time: Wednesday, June 01, 2016 20:57 - CONCLUSION: No DVT in the right leg. Scar Prasad MD Abdomen/Pelvis CT 06/01/16 0000 Signed Impressions: Service Date/Time: Wednesday, June 01, 2016 18:19 - CONCLUSION: 1. Bilateral new severe hydronephrosis. 2. Heterogeneous appearance to the bladder could be from hematoma and/or mass. 3. Multiple pelvic masses are again noted, some of which are new, with increase in size of pelvic lymphadenopathy and retroperitoneal lymphadenopathy. Scar Prasad MD Objective Remarks GENERAL: This is a pleasant 50 yo male, well-nourished, well-developed patient , in no apparent distress. SKIN: Pale. No rashes, ecchymoses or lesions. Cool and dry. HEAD: Atraumatic. Normocephalic. No temporal or scalp tenderness. EYES: Pupils equal round and reactive. Extraocular motions intact. No scleral icterus. No injection or drainage. ENT: Nose without bleeding, purulent drainage or septal hematoma. Throat without erythema, tonsillar hypertrophy or exudate. Uvula midline. Airway patent. NECK: Trachea midline. No JVD or lymphadenopathy. Supple, nontender, no meningeal signs. CARDIOVASCULAR: Regular rate and rhythm without murmurs, gallops, or rubs. RESPIRATORY: Clear to auscultation. Breath sounds equal bilaterally. No wheezes , rales, or rhonchi. GASTROINTESTINAL: Abdomen soft, non-tender, nondistended. No hepato-splenomegaly , or palpable masses. No guarding. MUSCULOSKELETAL: Extremities without clubbing, cyanosis, or edema. No joint tenderness, effusion, or edema noted. No calf tenderness. Negative Homans sign bilaterally. NEUROLOGICAL: Awake and alert. Cranial nerves II through XII intact. Motor and sensory grossly within normal limits. Five out of 5 muscle strength in all muscle groups. Normal speech. : Zuniga in place with hematuria. Procedures nephrostomy tube placement by IR 06/03/16 A/P Assessment and Plan 50 year old male with indwelling Zuniga secondary to bladder cancer with: Nausea/vomiting, failure to thrive unable to tolerate PO meds. Improving. Bladder cancer: Patient undergoing chemotherapy treatment.-Consult Dr. Lee. Hematuria. Bilateral hydronephrosis. Consult Dr Lee urology. Discussed with Dr Lee, he recommends poss surgery. Patient with bilateral hydronephrosis, also recurrent hematuria requiring transfusions multiple times. Patient also has worsening pelvic/retroperitoneal lymphadenopathy on this CT comparing to last CT dispite undergoing chemo. Recurrent UTI. With staph epi and margareth on previous cultures. Treated as OP with fluconazole and doxy. UA reviewed, U cx with margareth Diet as tolerated. GI consult , consider EGD if no improvement. ID specialist consulted, appreciate recommendations continue Fluconazole IV. DC gentamycin IV. Started daptomycin DENA on CKD baseline Cr 1.6 previously and on this admission Cr of 2.2. Likely 2 /2 decreased PO intake. On IVF. Monitor UOP. Monitor kidney indices. Improving. CT abd pelvis with PO contrast reviewed, findings discussed with urology Dr Lee: 1. Bilateral new severe hydronephrosis. 2. Heterogeneous appearance to the bladder could be from hematoma and/or mass. 3. Multiple pelvic masses are again noted, some of which are new, with increase in size of pelvic lymphadenopathy and retroperitoneal lymphadenopathy. S/P nephrostomy tube placement by IR 06/03/[address] Lee from urology and he recommends surgery poss on Wed 06/08. HGB must be > 10 before surgery, discussed with Dr Lee. Anemia: Secondary to hematuria. H/H stable so far, continue to monitor as patient has hematuria. 06/05.17 Hgb of 5.9, transfuse 2UpRBC. Monitor H/H and transfuse if HGB < 7 or if HGB < 10 and patient is symptomatic. In light of surgery on 06/08, will transfuse to keep HGB > 10 06/06 HGB of 6.9 transfuse additional 2U pRBC Hypertension - On hold lisinopril 2/2 DENA on CKD, and continue amlodipine. Monitor VS Hypertension/Sinus Tachycardia: Start small dose 12.5 mg po bid metoprolol. Clonidine prn. Chronic back pain and Anxiety: Continue Borup and Xanax as needed. Morphine IV for breakthrough pain DVT ppx SCD/TEDS. Chemical ppx is contraindicated 2/2 hematuria Discussed with the patient, nurse. Rose Schmidt MD Jun 06, 2016 13:05
[2016-06-06] MEDS ORDERED: POTASSIUM CHLORIDE 10 MEQ CONTROLLED RELEASE TAB PO ONE (14:00)
--- NOTE | 2016-06-06 16:07 | HHI.IDPN ---
Note Infectious Disease Note Notes reviewed. Has bleeding from bilateral nephrostomy tubes and Zuniga. In good mood. Afebrile. This is a 50-year-old white male who was diagnosed with bladder carcinoma. The patient was noted to have locally advanced muscle invasive bladder cancer and he has been undergoing perioperative chemotherapy. He was discharged from the hospital recently with antibiotic treatment for UTI. He developed intractable bladder pain along with nausea and vomiting and was sent back to the emergency department for evaluation. PAST MEDICAL HISTORY 1. Hypertension, 2. Neurogenic bladder 3. History of spinal tumor of 20 years ago 4. Status post resection of bladder carcinoma diagnosed in January 2016 ALLERGIES NO KNOWN DRUG ALLERGIES. Current Medications Medications (Trade) Dose Ordered Sig/Ambika Route PRN Reason Start Time Stop Time Status Last Admin Dose Admin Amlodipine Besylate (Norvasc) 10 mg DAILY PO 06/02/16 09:00 06/06/16 09:40 Lactobacillus Acidophilus (Lactinex Pkt) 1 gm QID PO 06/01/16 13:00 06/06/16 13:00 IV Flush (NS Flush) 2 ml UNSCH PRN FLUSH FLUSH AFTER USING IV ACCESS 06/01/16 11:30 IV Flush (NS Flush) 2 ml BID FLUSH 06/01/16 21:00 06/06/16 09:40 Acetaminophen (Tylenol) 650 mg Q4H PRN PO TEMP > 100.4 06/01/16 11:30 06/04/16 20:24 Prochlorperazine (Compazine Supp) 25 mg Q12H PRN AK NAUSEA OR VOMITING 06/01/16 11:30 Bisacodyl (Dulcolax Supp) 10 mg DAILY PRN AK CONSTIPATION 06/01/16 11:30 Magnesium Hydroxide (Milk Of Magnesia Liq) 30 ml Q12H PRN PO CONSTIPATION 06/01/16 11:30 Sennosides (Senokot) 17.2 mg Q12H PRN PO CONSTIPATION 06/01/16 11:30 Temazepam 15 mg 15 mg HS PRN PO INSOMNIA 06/01/16 11:30 Fluconazole/ Sodium Chloride (Diflucan 200 Mg Premix Bag) 100 ml @ 100 mls/hr Q24H IV 06/01/16 13:00 06/05/16 13:19 Enalaprilat 2.5 mg 2.5 mg Q6H PRN IV PUSH SBP> OR = 180, DBP> OR = 100 06/01/16 16:00 06/04/16 06:30 Daptomycin/Sodium Chloride (Cubicin Inj/NS Inj) 100 ml @ 200 mls/hr Q48H IV 06/01/16 20:00 06/05/16 20:16 Pantoprazole Sodium (Protonix Inj) 40 mg Q24H IV PUSH 06/01/16 17:00 06/05/16 16:40 Lorazepam (Ativan Inj) 0.5 mg Q6H PRN IV PUSH nausea 06/01/16 19:00 06/06/16 09:52 Lorazepam 0.5 mg 0.5 mg Q8H PRN PO anxiety 06/02/16 11:00 06/03/16 23:54 Sodium Chloride 5.5 meq/Sodium Acetate 29.5 meq/ Potassium Chloride 20 meq/ Magnesium Chloride 5 meq/ Calcium Chloride 4.5 meq/ Multivitamins 10 ml/Folic Acid 1 mg/Amino Acids/ Dextrose 1,042.1719 ml @ 42 mls/hr Q24H IV-CENTRAL 06/02/16 20:00 06/05/16 20:17 Fat Emulsion Intravenous (Liposyn Iii 20% Inj) 250 ml @ 10 mls/hr Q24H IV-CENTRAL 06/02/16 20:00 06/05/16 20:17 Acetaminophen/ Hydrocodone Bitart ([place] 5-325 Mg) 1 tab Q4H PRN PO PAIN SCALE 3 TO 5 06/03/16 14:30 Acetaminophen/ Hydrocodone Bitart ([place] 10-325 Mg) 1 tab Q4H PRN PO PAIN SCALE 6 TO 10 06/03/16 14:30 06/06/16 15:55 Hydromorphone HCl (Dilaudid Pf Inj) 0.5 mg Q4H PRN IV Pain 3-5; if unable to take PO 06/03/16 14:30 Hydromorphone HCl (Dilaudid Pf Inj) 1 mg Q4H PRN IV Pain 6-10;if unable to take PO 06/03/16 14:30 06/05/16 05:36 Hydromorphone HCl (Dilaudid Pf Inj) 1 mg Q4H PRN IV BREAKTHROUGH PAIN 06/03/16 14:30 06/06/16 14:32 Naloxone HCl (Narcan Inj) 0.4 mg UNSCH PRN IV SEE LABEL COMMENTS 06/03/16 14:30 Patient Own Medication 1 ea DAILY PO 06/04/16 09:00 Ondansetron HCl 4 mg 4 mg Q6H PRN IV PUSH nausea and vomiting 06/03/16 23:15 06/04/16 23:36 Sodium Chloride (1/2 NS 1000 ml Inj) 1,000 ml @ 100 mls/hr Q10H IV 06/04/16 12:00 06/06/16 14:00 Clonidine (Catapres) 0.1 mg Q6H PRN PO SBP>160, DBP>195, HR>65 06/04/16 11:00 Metoprolol Tartrate (Lopressor) 12.5 mg Q12HR PO 06/04/16 12:00 06/06/16 09:40 SOCIAL HISTORY No tobacco or alcohol. No illicit drugs. FAMILY HISTORY Lymphoma in the patient's father. REVIEW OF SYSTEMS Pertinent as mentioned in history of present illness. OBJECTIVE: Vital Signs Date Time Temp Pulse Resp B/P Pulse Ox O2 Delivery O2 Flow Rate FiO2 06/06/16 14:00 88 06/06/16 13:00 91 06/06/16 12:00 84 06/06/16 11:00 99.3 89 20 144/76 97 06/06/16 10:00 93 06/06/16 09:00 92 06/06/16 08:00 84 06/06/16 07:15 90 06/06/16 07:00 98.7 108 20 176/89 98 06/06/16 06:00 83 06/06/16 05:00 102 06/06/16 04:00 77 06/06/16 03:00 98.6 80 18 150/73 95 06/06/16 03:00 78 06/06/16 00:00 83 06/06/16 00:00 98.6 83 18 146/80 95 06/05/16 23:00 81 06/05/16 22:00 85 06/05/16 21:00 101 06/05/16 20:00 106 06/05/16 19:00 99.2 106 18 161/88 98 06/05/16 18:00 97 06/05/16 17:00 100 06/05/16 06/05/16 06/06/16 15:00 23:00 07:00 Intake Total 2276 ml 1703 ml Output Total 4835 ml 2370 ml Balance -2559 ml -667 ml Intake Oral 620 ml 360 ml IV Total 932 ml 854 ml TPN/PPN 591 ml 399 ml Lipid 133 ml 90 ml Output Urine Total 120 ml 20 ml Drainage Total 4715 ml 2350 ml # Bowel Movements 0 Laboratory Tests Test 06/05/16 06/06/16 03:34 05:45 White Blood Count 19.5 TH/MM3 14.4 TH/MM3 Red Blood Count 1.93 MIL/MM3 2.41 MIL/MM3 Hemoglobin 5.9 GM/DL 6.9 GM/DL Hematocrit 17.5 % 20.7 % Mean Corpuscular Volume 90.9 FL 85.8 FL Mean Corpuscular Hemoglobin 30.4 PG 28.7 PG Mean Corpuscular Hemoglobin 33.5 % 33.5 % Concent Red Cell Distribution Width 17.2 % 17.9 % Platelet Count 138 TH/MM3 169 TH/MM3 Mean Platelet Volume 8.7 FL 8.3 FL Neutrophils (%) (Auto) 73.7 % 72.6 % Lymphocytes (%) (Auto) 14.8 % 14.8 % Monocytes (%) (Auto) 9.0 % 7.0 % Eosinophils (%) (Auto) 1.9 % 5.4 % Basophils (%) (Auto) 0.6 % 0.2 % Neutrophils # (Auto) 14.4 TH/MM3 10.5 TH/MM3 Lymphocytes # (Auto) 2.9 TH/MM3 2.1 TH/MM3 Monocytes # (Auto) 1.8 TH/MM3 1.0 TH/MM3 Eosinophils # (Auto) 0.4 TH/MM3 0.8 TH/MM3 Basophils # (Auto) 0.1 TH/MM3 0.0 TH/MM3 CBC Comment DIFF FINAL DIFF FINAL Differential Comment Laboratory Tests Test 06/05/16 06/06/16 03:34 05:45 Sodium Level 143 MEQ/L 142 MEQ/L Potassium Level 3.8 MEQ/L 3.0 MEQ/L Chloride Level 109 MEQ/L 105 MEQ/L Carbon Dioxide Level 23.9 MEQ/L 27.4 MEQ/L Anion Gap 10 MEQ/L 10 MEQ/L Blood Urea Nitrogen 26 MG/DL 18 MG/DL Creatinine 3.21 MG/DL 2.02 MG/DL Estimat Glomerular Filtration 21 ML/MIN 35 ML/MIN Rate Random Glucose 129 MG/DL 127 MG/DL Calcium Level 8.3 MG/DL 8.5 MG/DL Phosphorus Level 4.2 MG/DL 3.5 MG/DL Magnesium Level 1.9 MG/DL 1.7 MG/DL Microbiology Date/Time Procedure Status Source Growth 06/04/16 04:15 Urine Culture - Final Complete Urine Clean Catch 10-50,000 CFU/ML MIXED GRAM POSITIVE ... 06/04/16 04:20 Aerobic Blood Culture - Preliminary Resulted Blood Line NO GROWTH IN 2 DAYS 06/04/16 04:20 Anaerobic Blood Culture - Preliminary Resulted Blood Line NO GROWTH IN 2 DAYS 06/04/16 04:45 Aerobic Blood Culture - Preliminary Resulted Blood Peripheral NO GROWTH IN 2 DAYS 06/04/16 04:45 Anaerobic Blood Culture - Preliminary Resulted Blood Peripheral NO GROWTH IN 2 DAYS IMAGING: Chest X-Ray 06/04/16 0347 Signed Impressions: Service Date/Time: Saturday, June 04, 2016 03:48 - CONCLUSION: No acute cardiopulmonary disease. Abdullahi Dos Santos MD Lower Extremity Ultrasound 06/01/16 0000 Signed Impressions: Service Date/Time: Wednesday, June 01, 2016 20:57 - CONCLUSION: No DVT in the right leg. Scar Prasad MD Abdomen/Pelvis CT 06/01/16 0000 Signed Impressions: Service Date/Time: Wednesday, June 01, 2016 18:19 - CONCLUSION: 1. Bilateral new severe hydronephrosis. 2. Heterogeneous appearance to the bladder could be from hematoma and/or mass. 3. Multiple pelvic masses are again noted, some of which are new, with increase in size of pelvic lymphadenopathy and retroperitoneal lymphadenopathy. Scar Prasad MD PHYSICAL EXAMINATION GENERAL: No acute distress. He is awake and alert and oriented. HEENT: Head atraumatic. Extraocular movements grossly intact, pupils reactive to light without icterus. Nose - No bleeding or drainage. Oropharynx - no visible lesions. NECK: Supple without adenopathy or swelling. LUNGS: Clear breath sounds HEART: Regular rate and rhythm. ABDOMEN: Bowel sounds present, soft, nontender. Mild tenderness on palpation over the suprapubic area. EXTREMITIES: No clubbing, cyanosis or edema. SKIN: No rash. NEUROLOGIC: Grossly nonfocal. PSYCHIATRIC: Calm and cooperative. GENITOURINARY: Zuniga catheter has bloody drainage. IMPRESSION 1. Urinary tract infection. 2. Neurogenic bladder 3. Bladder carcinoma 4. Nausea and vomiting. 5. Acute renal insufficiency RECOMMENDATIONS 1. Continue Daptomycin. 2. Monitor renal function. 3. Continue fluconazole. 4. Follow WBC. Levy Zhao MD Jun 06, 2016 16:07
--- NOTE | 2016-06-06 16:18 | RADRPT ---
EXAM DATE/TIME: 06/06/2016 15:49 [facility] COMPARISON: CT ABDOMEN & PELVIS W/O CONTRAST, June 01, 2016, 18:19. NEPHROSTOMY, LEFT, June 03, 2016, 10:1 2. CHEST SINGLE AP, June 04, 2016, 3:48. INDICATIONS : Evaluate PICC line placement MEDICAL HISTORY : Hypertension. Carcinoma, bladder. SURGICAL HISTORY : Nephrostomy ENCOUNTER: Subsequent ACUITY: 2 days PAIN SCORE: 0/10 LOCATION: Bilateral chest FINDINGS: PICC line is in the right atrium entering from the left. [id number] is in place on the right. He art is minimally enlarged. Pulmonary vascularity is normal. CONCLUSION: PICC line in right atrium. Rodrick Tolbert MD FACR on June 06, 2016 at 16:14 Board Certified Radiologist. This report was verified electronically.
[2016-06-06] MEDS: ONDANSETRON HCL 4 MG/2 ML VIAL IV PUSH PRN (17:22)
[2016-06-06] MEDS: PANTOPRAZOLE SODIUM 40 MG VIAL IV PUSH SCH (17:23)
[2016-06-06] MEDS: FLUCONAZOLE 200 MG PREMIX BAG 100 ML IV SCH (17:29)
[2016-06-06] MEDS: FAT EMULSION 20% INJ 250 ML (@10 mls/hr) IV-CENTRAL SCH (20:02)
[2016-06-06] MEDS: CLINIMIX 4.25/25 (Cust.Renal Central) 1000 mL- </= 42 mls/hr IV-CENTRAL SCH ×8 (20:02)
--- NOTE | 2016-06-06 21:21 | RADRPT ---
EXAM DATE/TIME: 06/06/2016 20:58 [facility] COMPARISON: No previous studies available for comparison. INDICATIONS : PICC line reposition. MEDICAL HISTORY : Hypertension. Carcinoma, bladder. SURGICAL HISTORY : Nephrostomy. ENCOUNTER: Subsequent ACUITY: 2 days PAIN SCORE: 0/10 LOCATION: Bilateral chest FINDINGS: Left arm PICC line has been pulled back a few centimeters. The tip is now at the atriocaval junction. There is a right IJ [id number] catheter unchanged, tip at atriocaval junction. Mild cardiomegaly is stable. Trace atelectasis in the right lung base. CONCLUSION: Left arm PICC tip is at the atriocaval junction. Ochoa Bae MD on June 06, 2016 at 21:19 Board Certified Radiologist. This report was verified electronically.
[2016-06-07] VITALS (19 sets, daily range): BP systolic 136–152; BP diastolic 71–90; PULSE 74–97; RESP 18–20; TEMP 97.5–99; O2SAT 96–100
[2016-06-07] MEDS: ACETAMINOPHEN/HYDROcodone 325 MG/10 MG TAB PO PRN ×5 (01:08→22:49)
[2016-06-07] MEDS: SODIUM CHLOR 0.45% 1000 ML INJ 1,000 ML IV SCH ×3 (01:46→20:20)
[2016-06-07 05:05] LABS: HEMATOCRIT 23.1 % (39.0-51.0); MEAN CELL VOLUME 82.7 FL (80.0-100.0); MEAN CORPUSCULAR HEMOGLOBIN 28.4 PG (27.0-34.0); MEAN CORPUSCULAR HGB CONC 34.4 % (32.0-36.0); PLATELET COUNT 189 TH/MM3 (150-450); RED BLOOD COUNT 2.79 MIL/MM3 (4.50-5.90); RED CELL DISTRIBUTION WIDTH 17.9 % (11.6-17.2); REVIEW FLAG FINAL; WHITE BLOOD COUNT 11.7 TH/MM3 (4.0-11.0)
[2016-06-07 05:18] LABS: ALT (GPT) 39 U/L (12-78); ANION GAP 6 MEQ/L (5-15); AST (GOT) 39 U/L (15-37); BICARBONATE 29.6 MEQ/L (21.0-32.0); BLOOD UREA NITROGEN 16 MG/DL (7-18); CHLORIDE 107 MEQ/L (98-107); GLOMERULAR FILTRATION RATE 43 ML/MIN (>89); MAGNESIUM 1.7 MG/DL (1.5-2.5); POTASSIUM 3.2 MEQ/L (3.5-5.1); SODIUM (NA) 143 MEQ/L (136-145)
[2016-06-07 05:21] LABS: ALKALINE PHOSPHATASE 79 U/L (45-117); TOTAL BILIRUBIN ADULT 0.6 MG/DL (0.2-1.0)
[2016-06-07] MEDS: HYDROmorphone HCL PF 1 MG/ML VIAL IV PRN ×4 (07:49→21:03)
[2016-06-07] MEDS: LACTOBACILLUS ACIDOPHILUS 1 GM PACKET PO SCH ×4 (07:52→20:23)
[2016-06-07] MEDS: METOPROLOL TARTRATE 25 MG TAB PO SCH ×2 (07:53→20:22)
[2016-06-07] MEDS: SODIUM CHLORIDE 0.9% FLUSH 5 ML FLUSH FLUSH SCH (07:54)
[2016-06-07] MEDS: PHYTONADIONE 100 MCG PO SCH (07:55)
--- NOTE | 2016-06-07 07:57 | HHI.PR ---
Subjective Remarks Pt seen and examined. Some left flank pain. PCNT's still bloody. Hgb at 7.9. Creatinine at 1.7. Objective Vital Signs Vital Signs Date Time Temp Pulse Resp B/P Pulse Ox O2 Delivery O2 Flow Rate FiO2 06/07/16 06:00 75 06/07/16 04:00 74 06/07/16 04:00 98.5 75 18 140/74 100 06/07/16 02:00 76 06/07/16 00:00 98.4 80 18 140/77 100 06/07/16 00:00 80 06/06/16 22:00 81 06/06/16 20:00 98.3 95 18 156/88 100 06/06/16 20:00 95 06/06/16 18:52 98.6 83 20 142/77 95 06/06/16 18:28 99.0 95 20 147/86 98 06/06/16 18:00 84 06/06/16 17:00 91 06/06/16 16:00 88 06/06/16 15:00 84 06/06/16 15:00 98.7 82 18 142/86 99 06/06/16 14:00 88 06/06/16 13:00 91 06/06/16 12:00 84 06/06/16 11:00 99.3 89 20 144/76 97 06/06/16 10:00 93 06/06/16 09:00 92 06/06/16 08:00 84 I/O 06/06/16 06/06/16 06/06/16 06/07/16 06/07/16 06/07/16 07:00 15:00 23:00 07:00 15:00 23:00 Intake Total 1703 ml 2054 ml 2192 ml Output Total 2370 ml 4850 ml 3345 ml Balance -667 ml -2796 ml -1153 ml Intake Oral 360 ml 600 ml 240 ml IV Total 854 ml 588 ml 988 ml TPN/PPN 399 ml 498 ml 495 ml Lipid 90 ml 118 ml 119 ml Packed Cells 250 ml 350 ml Output Urine Total 20 ml 100 ml 25 ml Drainage Total 2350 ml 4750 ml 3320 ml # Bowel Movements 0 Result Diagram: 06/07/16 0450 06/07/16 0450 Objective Remarks Abd:soft,some tenderness, ND Zuniga now with clear urine 06/03 Abd:soft,nd, mild tenderness Zuniga: rahul urine 06/06 Abd:soft, tender on exam Urine: dark blood PCNT's both with bloody urine 06/07 Abd:soft,tender on exam Zuniga irrigated at bedside; pink color PCNT's with bloody urine Ext: neg Assessment and Plan Assessment and Plan 50 y.o male with muscle invasive bladder cancer with evidence of worsening adenopathy and hydronephrosis. Bone scan to r/o ronald metastasis. IR consult to place bilateral nephrostomy tubes to help improve renal function Options of treatment discussed with family: Continued chemotherapy with XRT vs palliative surgery. If bone scan is negative would recommend palliative cystectomy. Pt understands this is not curative but intermediate accountant it would reduce readmissions and improve quality of life for now. Will need to correct anemia/thrombocytopenia and need to improve nutritional status. Will start TPN. Albumin is 2.4 at present. Hope to perform cystectomy next week. 06/03 50 y.o male with muscle invasive bladder cancer with evidence of worsening adenopathy and hydronephrosis. Bone scan negative for ronald metastasis. For bilateral PCNT's today Continue TPN For PICC line placement in near future 06/06 50 y.o male with muscle invasive bladder cancer For 2 more units of PRBC;s today PICC line today Replace K+ Continue TPN OR on Monday if Hgb at 10 or above 06/07 50 y.o male with muscle invasive bladder cancer 2 more units of PRBC's today for Hgb 7.9 Replace K OR in AM Eulogio Lee DO Jun 07, 2016 07:57
[2016-06-07] MEDS: POTASSIUM CHLOR 40 MEQ PREMIX 100 ML IV SCH ×2 (08:13→11:10)
[2016-06-07] MEDS ORDERED: SODIUM CHLOR 0.9% 250 ML INJ 250 ML IV ONE (08:15)
[2016-06-07] MEDS ORDERED: diphenhydrAMINE HCL 25 MG CAP PO PRN (08:15)
--- NOTE | 2016-06-07 08:17 | HHI.PR ---
Subjective Remarks H/h 7.9/ and continues with hematuria and bloody DC from drains. In light of scheduled OR tomorrow will transfuse 3 UpRBC and have 3 on hold for OR. Has a lot of pain, back pain and suprapubic pain. Says now the pain is worse suprapubic after drains in place. Otherwise denies Objective Vitals Vital Signs Date Time Temp Pulse Resp B/P Pulse Ox O2 Delivery O2 Flow Rate FiO2 06/07/16 08:13 18 06/07/16 06:00 75 06/07/16 04:00 74 06/07/16 04:00 98.5 75 18 140/74 100 06/07/16 02:00 76 06/07/16 00:00 98.4 80 18 140/77 100 06/07/16 00:00 80 06/06/16 22:00 81 06/06/16 20:00 98.3 95 18 156/88 100 06/06/16 20:00 95 06/06/16 18:52 98.6 83 20 142/77 95 06/06/16 18:28 99.0 95 20 147/86 98 06/06/16 18:00 84 06/06/16 17:00 91 06/06/16 16:00 88 06/06/16 15:00 84 06/06/16 15:00 98.7 82 18 142/86 99 06/06/16 14:00 88 06/06/16 13:00 91 06/06/16 12:00 84 06/06/16 11:00 99.3 89 20 144/76 97 06/06/16 10:00 93 06/06/16 09:00 92 I/O 06/06/16 06/06/16 06/06/16 06/07/16 06/07/16 06/07/16 07:00 15:00 23:00 07:00 15:00 23:00 Intake Total 1703 ml 2054 ml 2192 ml Output Total 2370 ml 4850 ml 3345 ml Balance -667 ml -2796 ml -1153 ml Intake Oral 360 ml 600 ml 240 ml IV Total 854 ml 588 ml 988 ml TPN/PPN 399 ml 498 ml 495 ml Lipid 90 ml 118 ml 119 ml Packed Cells 250 ml 350 ml Output Urine Total 20 ml 100 ml 25 ml Drainage Total 2350 ml 4750 ml 3320 ml # Bowel Movements 0 Result Diagram: 06/07/16 0450 06/07/16 0450 Imaging Last Impressions Chest X-Ray 06/06/16 0000 Signed Impressions: Service Date/Time: Monday, June 06, 2016 20:58 - CONCLUSION: Left arm PICC tip is at the atriocaval junction. Ochoa Bae MD Nephrostomy 06/03/16 0000 Signed Impressions: Service Date/Time: Friday, June 03, 2016 10:12 - CONCLUSION: Percutaneous nephrostomy tube placement as above. Significant hematuria following a right nephrostomy tube placement. Mario Calix MD Bone Scan Nuclear Medicine 06/02/16 0000 Signed Impressions: Service Date/Time: May 15:35 - CONCLUSION: No evidence of bony metastatic disease Ochoa Crow MD Lower Extremity Ultrasound 06/01/16 0000 Signed Impressions: Service Date/Time: Wednesday, June 01, 2016 20:57 - CONCLUSION: No DVT in the right leg. Scar Prasad MD Abdomen/Pelvis CT 06/01/16 0000 Signed Impressions: Service Date/Time: Wednesday, June 01, 2016 18:19 - CONCLUSION: 1. Bilateral new severe hydronephrosis. 2. Heterogeneous appearance to the bladder could be from hematoma and/or mass. 3. Multiple pelvic masses are again noted, some of which are new, with increase in size of pelvic lymphadenopathy and retroperitoneal lymphadenopathy. Scar Prasad MD Objective Remarks GENERAL: This is a pleasant 50 yo male, well-nourished, well-developed patient , in no apparent distress. SKIN: Pale. No rashes, ecchymoses or lesions. Cool and dry. HEAD: Atraumatic. Normocephalic. No temporal or scalp tenderness. EYES: Pupils equal round and reactive. Extraocular motions intact. No scleral icterus. No injection or drainage. ENT: Nose without bleeding, purulent drainage or septal hematoma. Throat without erythema, tonsillar hypertrophy or exudate. Uvula midline. Airway patent. NECK: Trachea midline. No JVD or lymphadenopathy. Supple, nontender, no meningeal signs. CARDIOVASCULAR: Regular rate and rhythm without murmurs, gallops, or rubs. RESPIRATORY: Clear to auscultation. Breath sounds equal bilaterally. No wheezes , rales, or rhonchi. GASTROINTESTINAL: Abdomen soft, non-tender, nondistended. No hepato-splenomegaly , or palpable masses. No guarding. MUSCULOSKELETAL: Extremities without clubbing, cyanosis, or edema. No joint tenderness, effusion, or edema noted. No calf tenderness. Negative Homans sign bilaterally. NEUROLOGICAL: Awake and alert. Cranial nerves II through XII intact. Motor and sensory grossly within normal limits. Five out of 5 muscle strength in all muscle groups. Normal speech. : Zuniga in place with hematuria. Procedures nephrostomy tube placement by IR 06/03/16 A/P Assessment and Plan 50 year old male with indwelling Zuniga secondary to bladder cancer with: Nausea/vomiting, failure to thrive unable to tolerate PO meds. Improving. Bladder cancer: Patient undergoing chemotherapy treatment.-Consult Dr. Lee. Hematuria. Bilateral hydronephrosis. Consult Dr Lee urology. Discussed with Dr Lee, he recommends poss surgery. Patient with bilateral hydronephrosis, also recurrent hematuria requiring transfusions multiple times. Patient also has worsening pelvic/retroperitoneal lymphadenopathy on this CT comparing to last CT dispite undergoing chemo. Recurrent UTI. With staph epi and margareth on previous cultures. Treated as OP with fluconazole and doxy. UA reviewed, U cx with margareth Diet as tolerated. GI consult , consider EGD if no improvement. ID specialist consulted, appreciate recommendations continue Fluconazole IV. DC gentamycin IV. Started daptomycin DENA on CKD baseline Cr 1.6 previously and on this admission Cr of 2.2. Likely 2 /2 decreased PO intake. On IVF. Monitor UOP. Monitor kidney indices. Improving. CT abd pelvis with PO contrast reviewed, findings discussed with urology Dr Lee: 1. Bilateral new severe hydronephrosis. 2. Heterogeneous appearance to the bladder could be from hematoma and/or mass. 3. Multiple pelvic masses are again noted, some of which are new, with increase in size of pelvic lymphadenopathy and retroperitoneal lymphadenopathy. S/P nephrostomy tube placement by IR 06/03/[address] Lee from urology and he recommends surgery poss on 06/08. HGB must be > 10 before surgery, discussed with Dr Lee. 06/07 H/H 7.02/11 Transfuse 3 U pRBC preop. Have 3 U pRBC for OR Anemia: Secondary to hematuria. H/H stable so far, continue to monitor as patient has hematuria. 06/05. Hgb of 5.9, transfuse 2UpRBC. Monitor H/H and transfuse if HGB < 7 or if HGB < 10 and patient is symptomatic. In light of surgery on 06/08, will transfuse to keep HGB > 10 06/06 HGB of 6.9 transfuse additional 2U pRBC 06/07 HGB 7.9 transfuse 3 U pRBC preop Hypertension - On hold lisinopril 2/2 DENA on CKD, and continue amlodipine. Monitor VS Hypertension/Sinus Tachycardia: Start small dose 12.5 mg po bid metoprolol. Clonidine prn. Chronic back pain and Anxiety: Continue [place] and Xanax as needed. Morphine IV for breakthrough pain DVT ppx SCD/TEDS. Chemical ppx is contraindicated 2/2 hematuria Discussed with the patient, nurse. Rose Schmidt MD Jun 07, 2016 08:17
[2016-06-07] MEDS ORDERED: ACETAMINOPHEN 325 MG TAB PO PRN (08:30)
[2016-06-07] MEDS: FLUCONAZOLE 200 MG PREMIX BAG 100 ML IV SCH (12:10)
[2016-06-07] MEDS: LORazepam 2 MG/ML VIAL IV PUSH PRN ×2 (12:11→21:02)
[2016-06-07] MEDS: ONDANSETRON HCL 4 MG/2 ML VIAL IV PUSH PRN (12:12)
--- NOTE | 2016-06-07 13:54 | PD.ONC.PN ---
Subjective Subjective Remarks Afebrile overnight. Patient resting comfortably. Feels better after transfusion. Anxious to know about surgery tomorrow.. Objective Data Date Time Temp Pulse Resp B/P Pulse Ox O2 Delivery O2 Flow Rate FiO2 06/07/16 13:05 84 06/07/16 12:29 85 06/07/16 12:23 97.5 87 18 149/90 100 06/07/16 11:42 18 06/07/16 11:15 84 06/07/16 11:15 97.5 84 18 136/71 96 06/07/16 10:34 76 06/07/16 09:15 99.0 83 18 152/83 100 06/07/16 09:13 18 06/07/16 09:00 75 06/07/16 08:30 97 06/07/16 08:30 97.5 97 18 151/88 100 06/07/16 06:00 75 06/07/16 04:00 74 06/07/16 04:00 98.5 75 18 140/74 100 06/07/16 02:00 76 06/07/16 00:00 98.4 80 18 140/77 100 06/07/16 00:00 80 06/06/16 22:00 81 06/06/16 20:00 98.3 95 18 156/88 100 06/06/16 20:00 95 06/06/16 18:52 98.6 83 20 142/77 95 06/06/16 18:28 99.0 95 20 147/86 98 06/06/16 18:00 84 06/06/16 17:00 91 06/06/16 16:00 88 06/06/16 15:00 84 06/06/16 15:00 98.7 82 18 142/86 99 06/06/16 14:00 88 Result Diagram: 06/07/16 0450 06/07/16 0450 Laboratory Results Laboratory Tests Test 06/07/16 06/07/16 04:50 08:39 White Blood Count 11.7 TH/MM3 Red Blood Count 2.79 MIL/MM3 Hemoglobin 7.9 GM/DL Hematocrit 23.1 % Mean Corpuscular Volume 82.7 FL Mean Corpuscular Hemoglobin 28.4 PG Mean Corpuscular Hemoglobin 34.4 % Concent Red Cell Distribution Width 17.9 % Platelet Count 189 TH/MM3 Mean Platelet Volume 7.6 FL Sodium Level 143 MEQ/L Potassium Level 3.2 MEQ/L Chloride Level 107 MEQ/L Carbon Dioxide Level 29.6 MEQ/L Anion Gap 6 MEQ/L Blood Urea Nitrogen 16 MG/DL Creatinine 1.71 MG/DL Estimat Glomerular Filtration 43 ML/MIN Rate Random Glucose 162 MG/DL Calcium Level 8.3 MG/DL Phosphorus Level 3.1 MG/DL Magnesium Level 1.7 MG/DL Total Bilirubin 0.6 MG/DL Aspartate Amino Transf 39 U/L (AST/SGOT) Alanine Aminotransferase 39 U/L (ALT/SGPT) Alkaline Phosphatase 79 U/L Total Protein 5.9 GM/DL Albumin 2.1 GM/DL Blood Type B POSITIVE Crossmatch Leukocyte-Reduced Red Blood Cells Blood Bank Comment Administered Medications Medications (Trade) Dose Ordered Sig/Ambika Route PRN Reason Start Time Stop Time Status Last Admin Dose Admin Amlodipine Besylate (Norvasc) 10 mg DAILY PO 06/02/16 09:00 06/07/16 07:52 Lactobacillus Acidophilus (Lactinex Pkt) 1 gm QID PO 06/01/16 13:00 06/07/16 12:10 IV Flush (NS Flush) 2 ml BID FLUSH 06/01/16 21:00 06/07/16 07:54 Acetaminophen 650 mg 650 mg Q4H PRN PO TEMP > 100.4 06/01/16 11:30 06/04/16 20:24 Fluconazole/ Sodium Chloride (Diflucan 200 Mg Premix Bag) 100 ml @ 100 mls/hr Q24H IV 06/01/16 13:00 06/07/16 12:10 Enalaprilat 2.5 mg 2.5 mg Q6H PRN IV PUSH SBP> OR = 180, DBP> OR = 100 06/01/16 16:00 06/04/16 06:30 Daptomycin/Sodium Chloride (Cubicin Inj/NS Inj) 100 ml @ 200 mls/hr Q48H IV 06/01/16 20:00 06/05/16 20:16 Pantoprazole Sodium (Protonix Inj) 40 mg Q24H IV PUSH 06/01/16 17:00 06/06/16 17:23 Lorazepam (Ativan Inj) 0.5 mg Q6H PRN IV PUSH nausea 06/01/16 19:00 06/07/16 12:11 Lorazepam 0.5 mg 0.5 mg Q8H PRN PO anxiety 06/02/16 11:00 06/03/16 23:54 Sodium Chloride 5.5 meq/Sodium Acetate 29.5 meq/ Potassium Chloride 20 meq/ Magnesium Chloride 5 meq/ Calcium Chloride 4.5 meq/ Multivitamins 10 ml/Folic Acid 1 mg/Amino Acids/ Dextrose 1,042.1719 ml @ 42 mls/hr Q24H IV-CENTRAL 06/02/16 20:00 06/06/16 20:02 Fat Emulsion Intravenous (Liposyn Iii 20% Inj) 250 ml @ 10 mls/hr Q24H IV-CENTRAL 06/02/16 20:00 06/06/16 20:02 Acetaminophen/ Hydrocodone Bitart ([place] 10-325 Mg) 1 tab Q4H PRN PO PAIN SCALE 6 TO 10 06/03/16 14:30 06/07/16 08:11 Hydromorphone HCl (Dilaudid Pf Inj) 1 mg Q4H PRN IV Pain 6-10;if unable to take PO 06/03/16 14:30 06/07/16 11:08 Hydromorphone HCl (Dilaudid Pf Inj) 1 mg Q4H PRN IV BREAKTHROUGH PAIN 06/03/16 14:30 06/06/16 14:32 Ondansetron HCl 4 mg 4 mg Q6H PRN IV PUSH nausea and vomiting 06/03/16 23:15 06/07/16 12:12 Sodium Chloride (1/2 NS 1000 ml Inj) 1,000 ml @ 100 mls/hr Q10H IV 06/04/16 12:00 06/07/16 10:00 Metoprolol Tartrate (Lopressor) 12.5 mg Q12HR PO 06/04/16 12:00 06/07/16 07:53 IV Flush (NS Flush) See Protocol DAILY IVF 06/07/16 09:00 06/07/16 07:54 Heparin Sodium (Porcine) See Protocol DAILY IVF 06/07/16 09:00 06/07/16 07:53 Potassium Chloride 100 ml @ 25 mls/hr Q4H IV 06/07/16 08:00 06/07/16 15:59 06/07/16 11:10 Sodium Chloride (NS 250 ml Inj) 250 ml @ 15 mls/hr ONCE ONCE IV 06/07/16 08:15 06/08/16 00:54 06/07/16 08:15 Objective Remarks GENERAL: Middle aged male, sitting up in bed in nad. SKIN: Warm and dry. HEAD: Normocephalic. EYES: No injection or drainage. NECK: Supple, trachea midline. CARDIOVASCULAR: Regular rate and rhythm RESPIRATORY: Breath sounds equal bilaterally. No accessory muscle use. GASTROINTESTINAL: Abdomen soft, non-tender, nondistended. BACK: bilateral nephrostomy tubes in place, blood fluid in bags. EXTREMITIES: No cyanosis. NEUROLOGICAL: No obvious focal deficit. Awake, alert, and oriented x3. Assessment/Plan Problem List: (1) Invasive carcinoma of urinary bladder Status: Acute Plan: 06/07/17: 3 units ordered by urology/pcp. will check H/H after blood transfused, order additional units if needed. 06/03/16: bone scan is negative, urology plans to proceed with palliative cystectomy next week. bilateral percutaneous nephrostomy tubes placed in IR today. Options of treatment discussed with family: Continued chemotherapy with XRT vs palliative surgery. If bone scan is negative would recommend palliative cystectomy. Pt understands this is not curative but senior care it would reduce readmissions and improve quality of life for now. + hydronephrosis to account for acute renal failure, noted new adenopathy concerning for progression vs. reactive given new UTI with margareth and staph epidermidis. Assessment 50 y/o man with locally advance, muscle invasive bladder cancer with recurrent hematuria complicated by acute renal failure and BL hydronephrosis. Now s/p bilateral percutaneous nephrostomy tube placement. Plan 1. monitor CBC, electrolytes 2. 3 units pRBC Attending Statement The exam, history, and the medical decision-making described in the above note were completed with the assistance of the mid-level provider. I reviewed and agree with the findings presented. I attest that I had a [id number] encounter with the patient on the same day, and personally performed and documented my assessment and findings in the medical record. Pt seen and examined. Urine less bloody. Ready for surgery tomorrow. c/o anxiety, offer Lorazepam. Hgb 11 in PM, goal for surgery tomorrow. Jesika Wilkes Jun 07, 2016 13:54 Idalia Lee MD Jun 07, 2016 20:25
[2016-06-07] MEDS: PANTOPRAZOLE SODIUM 40 MG VIAL IV PUSH SCH (17:09)
[2016-06-07 18:46] LABS: HEMATOCRIT 31.5 % (39.0-51.0)
[2016-06-07] MEDS: DAPTOmycin INJ 320 MG in SODIUM CHLORIDE 0.9% INJ 100 ML IV SCH (20:21)
[2016-06-07] MEDS: FAT EMULSION 20% INJ 250 ML (@10 mls/hr) IV-CENTRAL SCH (20:22)
[2016-06-07] MEDS ORDERED: POTASSIUM CHLORIDE 20 MEQ CONTROLLED RELEASE TAB PO ONE (20:30)
[2016-06-07] MEDS: CLINIMIX 4.25/25 (Cust.Renal Central) 1000 mL- </= 42 mls/hr IV-CENTRAL SCH ×8 (20:36)
[2016-06-08] VITALS (10 sets, daily range): BP systolic 122–143; BP diastolic 76–88; PULSE 79–110; RESP 12–20; TEMP 78.5–98.3; O2SAT 98–100
[2016-06-08] MEDS: ACETAMINOPHEN/HYDROcodone 325 MG/10 MG TAB PO PRN (04:25)
[2016-06-08 04:59] LABS: HEMATOCRIT 31.3 % (39.0-51.0); MEAN CELL VOLUME 83.9 FL (80.0-100.0); MEAN CORPUSCULAR HEMOGLOBIN 29.4 PG (27.0-34.0); MEAN CORPUSCULAR HGB CONC 35.1 % (32.0-36.0); PLATELET COUNT 208 TH/MM3 (150-450); RED BLOOD COUNT 3.73 MIL/MM3 (4.50-5.90); RED CELL DISTRIBUTION WIDTH 16.5 % (11.6-17.2); REVIEW FLAG FINAL; WHITE BLOOD COUNT 11.8 TH/MM3 (4.0-11.0)
[2016-06-08 05:05] LABS: APTT (PATIENT) 29.7 SEC (24.3-30.1); PROTHROMBIN TIME - PATIENT 11.2 SEC (9.8-11.6)
[2016-06-08 05:15] LABS: BICARBONATE 28.7 MEQ/L (21.0-32.0); POTASSIUM 3.8 MEQ/L (3.5-5.1)
[2016-06-08] MEDS: SODIUM CHLOR 0.45% 1000 ML INJ 1,000 ML IV SCH ×2 (06:00→16:00)
[2016-06-08] MEDS: METOPROLOL TARTRATE 25 MG TAB PO SCH ×2 (07:10→21:00)
[2016-06-08] MEDS ORDERED: HEPARIN SODIUM - IV 10,000 UNITS/10 ML VIAL ONE (07:28)
[2016-06-08] MEDS ORDERED: GELFOAM SIZE 100 ONE (07:28)
[2016-06-08] MEDS ORDERED: HEPARIN SODIUM - SQ 10,000 UNITS/ML VIAL ONE (07:29)
[2016-06-08] MEDS ORDERED: FAMOTIDINE 20 MG/2 ML VIAL ONE (07:33)
[2016-06-08] MEDS ORDERED: ACETAMINOPHEN 1000 MG/100 ML VIAL IV ONE (07:33)
[2016-06-08] MEDS ORDERED: DEXAMETHASONE SOD PHOS 4 MG/ML VIAL ONE (07:34)
[2016-06-08] MEDS ORDERED: MIDAZOLAM HCL 2 MG/2 ML VIAL ONE (07:34)
[2016-06-08] MEDS ORDERED: KETAMINE HCL 500 MG/5 ML VIAL ONE (07:34)
[2016-06-08] MEDS: LACTOBACILLUS ACIDOPHILUS 1 GM PACKET PO SCH ×4 (07:40→21:00)
[2016-06-08] MEDS: PHYTONADIONE 100 MCG PO SCH (07:40)
[2016-06-08] MEDS: SODIUM CHLORIDE 0.9% FLUSH 5 ML FLUSH FLUSH SCH ×2 (07:41→21:00)
[2016-06-08] MEDS ORDERED: metroNIDAZOLE 500 MG INJ 100 ML IV ONE (07:41)
[2016-06-08] MEDS ORDERED: GENTAMICIN SULFATE 80 MG/2 ML VIAL ONE (08:03)
[2016-06-08] MEDS ORDERED: AMPICILLIN INJ 1,000 MG VIAL IV ONE (08:28)
[2016-06-08] MEDS ORDERED: fentaNYL CITRATE 250 MCG/5 ML AMP ONE ×4 (09:11→14:00)
[2016-06-08 10:51] LABS: BASOPHIL # 0.1 TH/MM3 (0-0.2); BASOPHIL % 0.5 % (0.0-2.0); EOSINOPHIL # 0.4 TH/MM3 (0-0.4); EOSINOPHIL % 3.6 % (0.0-4.0); HEMATOCRIT 27.1 % (39.0-51.0); HEMO FLAGS DIFF FINAL; LYMPH % 6.2 % (9.0-44.0); LYMPHOCYTE # 0.8 TH/MM3 (1.0-4.8); MEAN CORPUSCULAR HEMOGLOBIN 28.8 PG (27.0-34.0); MEAN CORPUSCULAR HGB CONC 33.9 % (32.0-36.0); MONO % 2.1 % (0.0-8.0); NEUT % 87.6 % (16.0-70.0); PLATELET COUNT 191 TH/MM3 (150-450); RED BLOOD COUNT 3.18 MIL/MM3 (4.50-5.90); RED CELL DISTRIBUTION WIDTH 15.8 % (11.6-17.2); WHITE BLOOD COUNT 12.5 TH/MM3 (4.0-11.0)
[2016-06-08] MEDS ORDERED: HYDROmorphone HCL PF 2 MG/ML VIAL ONE (11:43)
[2016-06-08 12:31] LABS: HEMATOCRIT 34.4 % (39.0-51.0); REVIEW FLAG FINAL
[2016-06-08] MEDS: FLUCONAZOLE 200 MG PREMIX BAG 100 ML IV SCH ×2 (13:00→18:44)
[2016-06-08 13:02] LABS: BLOOD GAS BASE EXCESS -6.7 mmol/L (-2-2); BLOOD GAS CARBOXYHEMOGLOBIN 1.9 % (0-4); BLOOD GAS HCO3 19 mmol/L (22-26); BLOOD GAS METHEMOGLOBIN 0.9 % (0-2); BLOOD GAS O2 HGB SATURATION 97 % (90-100); BLOOD GAS OXYGEN CONTENT 14.5 Vol % (12.0-20.0); BLOOD GAS PCO2 43 mmHg (38-42); BLOOD GAS PO2 219 mmHg (61-120); BLOOD GAS TOTAL HGB 10.3 G/DL (12.0-16.0); TEMP CORR TO 98.6
[2016-06-08 13:03] LABS: CRITICAL VALUE YES; OXYGEN DEVICE VENTILATOR
[2016-06-08 13:04] LABS: STAT YES; VENT SETTINGS OR SETTINGS
[2016-06-08] MEDS ORDERED: ALBUMIN HUMAN 25% 12.5 GM/50 ML BAGP IV ONE (13:59)
[2016-06-08] MEDS ORDERED: SUFentanil INJ 250 MCG/5 ML AMP ONE (14:09)
[2016-06-08] MEDS ORDERED: SODIUM BICARBONATE 8.4% INJ 50 MEQ/50 ML SYR IV ONE (14:42)
[2016-06-08] MEDS ORDERED: PHENYLEPH/NS 1000 MCG/10 ML SYR IV ONE (14:42)
[2016-06-08] MEDS ORDERED: SODIUM CHLOR 0.9% 250 ML INJ 500 ML IV ONE (14:42)
[2016-06-08] MEDS ORDERED: MULTIPLE ELECTROLYTES IV ONE (14:42)
[2016-06-08] MEDS ORDERED: LACTATED RINGER'S 1000 ML INJ 4,000 ML IV ONE (14:42)
[2016-06-08] MEDS ORDERED: CALCIUM CHLORIDE 10% SOLN 1 GRAM/10 ML SYR IV ONE (14:42)
[2016-06-08] MEDS ORDERED: SODIUM CHLORID 0.9% 500 ML INJ 500 ML IV ONE (14:42)
[2016-06-08] MEDS ORDERED: PROPOFOL 200 MG/20 ML AMP IV ONE (14:42)
[2016-06-08] MEDS ORDERED: ENALAPRILAT 2.5 MG/2 ML VIAL IV PUSH PRN (16:30)
[2016-06-08] MEDS ORDERED: ONDANSETRON HCL 4 MG/2 ML VIAL IV PUSH PRN (16:30)
[2016-06-08] MEDS ORDERED: LORazepam 2 MG/ML VIAL IV PUSH PRN (16:30)
[2016-06-08] MEDS ORDERED: ACETAMINOPHEN 650 MG SUPP RECTAL PRN (16:30)
[2016-06-08] MEDS ORDERED: PANTOPRAZOLE SODIUM 40 MG VIAL IV PUSH SCH (16:30)
--- NOTE | 2016-06-08 16:43 | RADRPT ---
EXAM DATE/TIME: 06/08/2016 15:52 [place] COMPARISON: No previous studies available for comparison. INDICATIONS : Evaluate for foreign body. Incorrect instrument count. MEDICAL HISTORY : None. SURGICAL HISTORY : None. ENCOUNTER: Subsequent ACUITY: 1 day PAIN SCORE: Non-responsive. LOCATION: Abdomen FINDINGS: Supine view of the abdomen was performed. Status post abdominal surgery. Multiple surgical clips are seen in the pelvis bilaterally. There are bilateral nephrostomy catheters in place. There are bilate ral stents in place. There are 2 nonspecific catheters along the right mid abdomen area. Multiple ski n amber are seen along the midline abdomen from L3 down to the pubic symphysis. No other definite d evices are demonstrated. CONCLUSION: Postop abdomen. Rufino Canchola MD on June 08, 2016 at 16:40 Board Certified Radiologist. This report was verified electronically.
[2016-06-08] MEDS ORDERED: PHENYLEPHRINE HCL 10 MG/ML VIAL ONE (16:48)
[2016-06-08] MEDS ORDERED: PROPOFOL 1000 MG/100 ML INJ 100 ML ONE (16:51)
[2016-06-08] MEDS ORDERED: DO NOT ADM ANY ANTICOAGULANT DRUGS XX PRN (17:00)
[2016-06-08] MEDS: PANTOPRAZOLE SODIUM 40 MG VIAL IV PUSH SCH (17:00)
[2016-06-08] MEDS: ceFAZolin 2 GM PREMIX 50 ML IV SCH (17:00)
[2016-06-08 17:18] LABS: HEMATOCRIT 29.4 % (39.0-51.0); MEAN CELL VOLUME 84.9 FL (80.0-100.0); MEAN CORPUSCULAR HEMOGLOBIN 29.4 PG (27.0-34.0); MEAN CORPUSCULAR HGB CONC 34.6 % (32.0-36.0); PLATELET COUNT 192 TH/MM3 (150-450); RED BLOOD COUNT 3.46 MIL/MM3 (4.50-5.90); RED CELL DISTRIBUTION WIDTH 15.2 % (11.6-17.2); REVIEW FLAG FINAL; WHITE BLOOD COUNT 17.4 TH/MM3 (4.0-11.0)
--- NOTE | 2016-06-08 17:28 | HHI.PR ---
Subjective Remarks Resting in bed in no acute complain going for bladder surgery today Objective Vitals Vital Signs Date Time Temp Pulse Resp B/P Pulse Ox O2 Delivery O2 Flow Rate FiO2 06/08/16 16:45 100 50 06/08/16 07:00 79 06/08/16 06:00 79 06/08/16 04:00 81 06/08/16 04:00 78.5 85 20 143/88 98 06/08/16 02:00 79 06/08/16 00:00 79 06/07/16 22:00 83 06/07/16 20:00 85 06/07/16 20:00 97.6 89 20 149/86 96 06/07/16 18:01 85 06/07/16 17:31 16 I/O 06/07/16 06/07/16 06/07/16 06/08/16 06/08/16 06/08/16 07:00 15:00 23:00 07:00 15:00 23:00 Intake Total 2192 ml 3320 ml 3856 ml Output Total 3345 ml 4150 ml 2775 ml Balance -1153 ml -830 ml 1081 ml Intake Oral 240 ml 600 ml 380 ml IV Total 988 ml 1450 ml 2265 ml TPN/PPN 495 ml 420 ml 960 ml Lipid 119 ml 100 ml 251 ml Packed Cells 350 ml 750 ml Output Urine Total 25 ml 4150 ml 50 ml Drainage Total 3320 ml 2725 ml # Bowel Movements 1 Result Diagram: 06/08/16 1700 06/08/16 0440 Objective Remarks GENERAL: This is a well-nourished, well-developed patient, in no apparent distress. SKIN: No rashes, warm and dry HEAD: Atraumatic. Normocephalic. EYES: Pupils equal round and reactive. Extraocular motions intact. No scleral icterus. ENT: Nose without bleeding, or drainage, Airway patent. NECK: Trachea midline. Supple CARDIOVASCULAR: Regular rate and rhythm without murmurs, gallops, or rubs. RESPIRATORY: Fair air entry bilaterally. No wheezes, rales, or rhonchi. GASTROINTESTINAL: Abdomen soft, non-tender, nondistended. Positive bowel sounds , bilateral nephrostomy tube in place MUSCULOSKELETAL: Extremities without clubbing, cyanosis, or edema. Pedal pulses appreciated NEUROLOGICAL: Awake and alert. Moves all extremity. Normal speech.no focal neurological deficit Procedures nephrostomy tube placement by IR 06/03/16 A/P Assessment and Plan 50 year old male with indwelling Zuniga secondary to bladder cancer with: Nausea/vomiting, failure to thrive unable to tolerate PO meds. Improving. GI following Bladder cancer: Patient undergoing chemotherapy treatment. Oncology Dr. Lee. Following Hematuria. Bilateral hydronephrosis. Consult Dr Lee urology. Discussed with Dr Lee, he recommends poss surgery. Patient with bilateral hydronephrosis, also recurrent hematuria requiring transfusions multiple times. Patient also has worsening pelvic/retroperitoneal lymphadenopathy on this CT comparing to last CT dispite undergoing chemo. Recurrent UTI. With staph epi and margareth on previous cultures. Treated as OP with fluconazole and doxy. UA reviewed, U cx with margareth ID consulted, appreciate recommendations continue Fluconazole IV. DC gentamycin IV. Started daptomycin DENA on CKD baseline Cr 1.6 previously and on this admission Cr of 2.2. Likely 2 /2 decreased PO intake. On IVF. Monitor UOP. Monitor kidney indices. Improving. CT abd pelvis with PO contrast reviewed, findings discussed with urology Dr Lee: 1. Bilateral new severe hydronephrosis. 2. Heterogeneous appearance to the bladder could be from hematoma and/or mass. 3. Multiple pelvic masses are again noted, some of which are new, with increase in size of pelvic lymphadenopathy and retroperitoneal lymphadenopathy. S/P nephrostomy tube placement by IR 06/03/16 bladder surgery by urology today 06/08/16 Anemia: Secondary to hematuria. H/H stable so far, continue to monitor as patient has hematuria. Status post transfusion, monitor H&H Hypertension - On hold lisinopril 2/2 DENA on CKD, and continue amlodipine. Monitor VS Hypertension/Sinus Tachycardia: Start small dose 12.5 mg po bid metoprolol. Clonidine prn. Chronic back pain and Anxiety: Continue [place] and Xanax as needed. Morphine IV for breakthrough pain DVT ppx SCD/TEDS. Chemical ppx is contraindicated 2/2 hematuria Raiza Bahena MD Jun 08, 2016 17:28
[2016-06-08] MEDS ORDERED: PHENYLEPHRINE 40 MG/D5W 496 ML ADMIX IV SCH ×2 (17:30)
[2016-06-08] MEDS: metroNIDAZOLE 500 MG INJ 100 ML IV SCH (17:30)
[2016-06-08] MEDS ORDERED: TERBUTALINE INJ 1 MG/ML AMP SQ PRN (17:30)
[2016-06-08 17:33] LABS: APTT (PATIENT) 28.1 SEC (24.3-30.1); PROTHROMBIN TIME - PATIENT 11.5 SEC (9.8-11.6)
[2016-06-08 17:45] LABS: BLOOD GAS BASE EXCESS -1.3 mmol/L (-2-2); BLOOD GAS CARBOXYHEMOGLOBIN 2.3 % (0-4); BLOOD GAS HCO3 23 mmol/L (22-26); BLOOD GAS METHEMOGLOBIN 1.2 % (0-2); BLOOD GAS O2 HGB SATURATION 96 % (90-100); BLOOD GAS OXYGEN CONTENT 12.5 Vol % (12.0-20.0); BLOOD GAS PCO2 38 mmHg (38-42); BLOOD GAS PO2 220 mmHg (61-120); BLOOD GAS TOTAL HGB 8.8 G/DL (12.0-16.0); TEMP CORR TO 98.6
[2016-06-08] MEDS ORDERED: diphenhydrAMINE HCL 50 MG/ML VIAL IV PUSH PRN (17:45)
[2016-06-08] MEDS ORDERED: HYDROMORPHONE IV SCH (17:45)
[2016-06-08] MEDS ORDERED: NALOXONE HCL 0.4 MG/ML AMP IV PRN (17:45)
[2016-06-08] MEDS ORDERED: SODIUM CHLORIDE 0.9% IV SCH (17:45)
[2016-06-08 17:46] LABS: CRITICAL VALUE NO; DRAW SITE ART LINE; FIO2 45 %; OXYGEN DEVICE VENTILATOR; STAT YES; ULNAR PULSE PRESENT; VENT SETTINGS 550/10/PEEP5/45%
[2016-06-08] MEDS: LACTATED RINGER'S 1000 ML INJ 1,000 ML IV SCH (17:52)
[2016-06-08 18:00] LABS: CALCIUM-PROTEIN CORRECTED 8.8 MG/DL (8.5-10.1); POTASSIUM 4.6 MEQ/L (3.5-5.1); TOTAL BILIRUBIN ADULT 1.7 MG/DL (0.2-1.0)
[2016-06-08] MEDS ORDERED: LORazepam 0.5 MG TAB PO ONE (19:00)
[2016-06-08] MEDS ORDERED: *HYDROmorphone PF 1 MG VIAL PERIprocedural Use ONLY ONE (20:22)
[2016-06-08] MEDS ORDERED: METOPROLOL TARTRATE 25 MG TAB PO SCH (21:00)
--- NOTE | 2016-06-08 21:12 | PD.CONS ---
[facility] Service Critical Care Medicine Consult Requested By Dr. Lee Reason for Consult post-op care Primary Care Physician No Primary Care Physician History of Present Illness Is a 50-year-old male with a history of neurogenic bladder who was recently diagnosed with new locally advanced muscle invasive bladder cancer who underwent neoadjuvant chemotherapy and is now postop day 0 status post open radical cystectomy. His intraoperative course was complicated by a 4 L EBL with massive resuscitation. He was left intubated for concerns over fluid shifts. I evaluated the patient in the PACU. He was still intubated and sedated. He cannot participate in a history. He was on phenylephrine infusion at 50 mics per minute. Critical-care medicine is consulted to evaluate and manage his postresuscitation and postoperative care Review of Systems ROS Limitations: Clinical Condition, Intubated, Altered Mental Status Past Family Social History Allergies: Coded Allergies: No Known Allergies (Unverified , 05/09/16) Past Medical History Past medical history is unobtainable secondary to patient's clinical condition. Per chart review: Bladder CACurrently undergoing chemotherapy with Dr. Lee. Hypertension History of spinal tumorabout 20 years ago. Status post resection. No chemotherapy. No radiation. Neurogenic bladder Past Surgical History Past surgical history is unobtainable due to the patient's clinical condition. Per chart review: Spinal tumor resection Bladder resection Cystoscopies Reported Medications Home meds are unobtainable due to the patient's clinical condition. Per chart review: Hydrocodone-Acetaminophen 10-300 Tab 1 Tab PO Q4H PRN Diflucan (Fluconazole) 200 Mg Tab 200 Mg PO DAILY Doxycycline Hyclate 100 Mg Cap 100 Mg PO BID Lisinopril 20 Mg Tab 20 Mg PO BID 30 Days Floranex (Lactobacillus Acidophilus) 1 Gm Pkt 1 Gm PO QID 14 Days Xanax (Alprazolam) 0.25 Mg Tab 0.25 Mg PO Q8H PRN Norvasc (Amlodipine Besylate) 10 Mg Tab 10 Mg PO DAILY Vitamin K (Phytonadione) 100 Mcg Tab 100 Mcg PO DAILY Iron Complex (Iron Combinations) 1 Cap Cap 1 Cap PO DAILY Active Ordered Medications See MAR Family History Family history is unobtainable due to the patient's clinical condition. Per chart review: Patient's father has a history of lymphoma. Social History Social history is unobtainable due to the patient's clinical condition. Per chart review: Denies current use of tobacco, alcohol, or illicit drugs. He is a former smoker but reportedly quit after diagnosis of bladder cancer. Physical Exam Vital Signs Vital Signs Date Time Temp Pulse Resp B/P Pulse Ox O2 Delivery O2 Flow Rate FiO2 06/08/16 17:50 100 35 06/08/16 16:45 97.8 108 12 107/65 100 Mechanical Ventilator 50 100/52 06/08/16 16:45 100 50 06/08/16 07:00 79 06/08/16 06:00 79 06/08/16 04:00 81 06/08/16 04:00 78.5 85 20 143/88 98 06/08/16 02:00 79 06/08/16 00:00 79 06/07/16 22:00 83 Physical Exam GENERAL: Middle-aged male, lying in bed, intubated, sedated. HEENT: Normocephalic. Atraumatic. Pupils equal, round, conjugate, reactive. Mucous members are moist. NECK: Orotracheally intubated. No JVD. Trachea is midline. CHEST: Equal chest rise. Clear to auscultation. Mechanically ventilated. CARDIOVASCULAR: Normal rate, regular rhythm. Phenylephrine at 50 mics per minute. ABDOMEN: Midline incision is clean and dry. Urostomy tubes with clear yellow urine. There is a Zuniga catheter that exits the penis that per report is a pelvic drain to traction. Has minimal output. MUSCULOSKELETAL: No peripheral edema. Distal pulses 2+. NEUROLOGICAL: RASS -4. Recently under anesthesia. Laboratory Laboratory Tests Test 06/08/16 06/08/16 06/08/16 06/08/16 04:40 10:26 10:28 11:20 White Blood Count 11.8 12.5 Red Blood Count 3.73 3.18 Hemoglobin 11.0 9.2 Hematocrit 31.3 27.1 Mean Corpuscular Volume 83.9 85.0 Mean Corpuscular Hemoglobin 29.4 28.8 Mean Corpuscular Hemoglobin 35.1 33.9 Concent Red Cell Distribution Width 16.5 15.8 Platelet Count 208 191 Mean Platelet Volume 7.5 7.7 Prothrombin Time 11.2 Prothromb Time International 1.0 Ratio Activated Partial 29.7 Thromboplast Time Sodium Level 142 Potassium Level 3.8 Chloride Level 106 Carbon Dioxide Level 28.7 Anion Gap 7 Blood Urea Nitrogen 15 Creatinine 1.37 Estimat Glomerular Filtration 55 Rate Random Glucose 111 Calcium Level 8.6 Blood Type B POSITIVE Antibody Screen NEGATIVE Crossmatch Leukocyte-Reduced Leukocyte-Reduced Leukocyte-Reduced Red Blood Red Blood Red Blood Cells Cells Cells Blood Bank Comment Neutrophils (%) (Auto) 87.6 Lymphocytes (%) (Auto) 6.2 Monocytes (%) (Auto) 2.1 Eosinophils (%) (Auto) 3.6 Basophils (%) (Auto) 0.5 Neutrophils # (Auto) 11.0 Lymphocytes # (Auto) 0.8 Monocytes # (Auto) 0.3 Eosinophils # (Auto) 0.4 Basophils # (Auto) 0.1 CBC Comment DIFF FINAL Differential Comment Test 06/08/16 06/08/16 06/08/16 06/08/16 11:25 11:57 12:41 12:51 Blood Bank Comment Hemoglobin 11.7 Hematocrit 34.4 Crossmatch Leukocyte-Reduced Red Blood Cells Blood Gas Puncture Site DRAWN IN OR Blood Gas Patient Temperature 98.6 Blood Gas HCO3 19 Blood Gas Base Excess -6.7 Blood Gas Oxygen Saturation 97 Arterial Blood pH 7.27 Arterial Blood Partial 43 Pressure CO2 Arterial Blood Partial 219 Pressure O2 Arterial Blood Oxygen Content 14.5 Arterial Blood 1.9 Carboxyhemoglobin Arterial Blood Methemoglobin 0.9 Blood Gas Hemoglobin 10.3 Oxygen Delivery Device VENTILATOR Blood Gas Ventilator Setting OR SETTINGS Test 06/08/16 06/08/16 17:00 17:40 White Blood Count 17.4 Red Blood Count 3.46 Hemoglobin 10.2 Hematocrit 29.4 Mean Corpuscular Volume 84.9 Mean Corpuscular Hemoglobin 29.4 Mean Corpuscular Hemoglobin 34.6 Concent Red Cell Distribution Width 15.2 Platelet Count 192 Mean Platelet Volume 7.4 Prothrombin Time 11.5 Prothromb Time International 1.0 Ratio Activated Partial 28.1 Thromboplast Time Fibrinogen 227 Sodium Level 142 Potassium Level 4.6 Chloride Level 105 Carbon Dioxide Level 26.0 Anion Gap 11 Blood Urea Nitrogen 15 Creatinine 1.36 Estimat Glomerular Filtration 56 Rate Random Glucose 142 Calcium Level 7.4 Protein Corrected Calcium 8.8 Total Bilirubin 1.7 Aspartate Amino Transf 17 (AST/SGOT) Alanine Aminotransferase 22 (ALT/SGPT) Alkaline Phosphatase 52 Total Protein 4.6 Albumin 2.4 Blood Gas Puncture Site ART LINE Blood Gas Patient Temperature 98.6 Blood Gas HCO3 23 Blood Gas Base Excess -1.3 Blood Gas Oxygen Saturation 96 Arterial Blood pH 7.40 Arterial Blood Partial 38 Pressure CO2 Arterial Blood Partial 220 Pressure O2 Arterial Blood Oxygen Content 12.5 Arterial Blood 2.3 Carboxyhemoglobin Arterial Blood Methemoglobin 1.2 Blood Gas Hemoglobin 8.8 Oxygen Delivery Device VENTILATOR Blood Gas Ventilator Setting 550/10/PEEP5/45% Blood Gas Inspired Oxygen 45 Date/Time Procedure Status Source Growth 06/04/16 04:45 Aerobic Blood Culture - Preliminary Resulted Blood Peripheral NO GROWTH IN 4 DAYS 06/04/16 04:45 Anaerobic Blood Culture - Preliminary Resulted Blood Peripheral NO GROWTH IN 4 DAYS 06/04/16 04:15 Urine Culture - Final Complete Urine Clean Catch 10-50,000 CFU/ML MIXED GRAM POSITIVE ... Result Diagram: 06/08/16 1700 06/08/16 170 Assessment and Plan Assessment and Plan Assessment: This is a 50-year-old male with recent diagnosis of bladder cancer now postop day 0 status post radical cystectomy his course, located by 4 L EBL and massive transfusion. He remains intubated for airway concerns and concern over postoperative pulmonary insufficiency. He remains critically ill this time. He is at high risk for ongoing resuscitation and is still on vasopressors to maintain endorgan perfusion. Plan by systems: Neurologic: Acute postoperative pain Fentanyl and propofol for goal RASS Goal RASS -2 Respiratory: Postoperative pulmonary insufficiency Vent bundle Head of bed at 30 Low tidal by ventilation training 6 cc/kg ideal body weight Wean FiO2 for goal SPO2 greater than 90% Does not meet SBT criteria tonight given massive transfusion Nebs every 6 and every 2 when necessary Cardiovascular: Hypovolemic shock Resolving. Continue phenylephrine for goal map greater than 65 Continue maintenance fluids at 125 an hour Renal: Acute on chronic kidney injury Status post radical cystectomy Continue strict I's and O's with monitoring from nephrostomy tube Zuniga catheter which exits the penis is actually a pelvic drain. Continue this to traction. -- Strict I/Os FEN/GI: Acute protein calorie malnutritionmild Intravascular hypovolemia Continue maintenance fluids as above Nothing by mouth ICU electrolyte protocol Daily BMP Heme/ID: Anemia acute blood loss Perioperative antibiotics per surgeon Does not meet transfusion trigger at this time Goal hemoglobin greater than 7 Daily CBC Follow-up postop coags and CBC Endocrine: Hyperglycemia of critical illness -- SSI, every 6 hours, medium scale Prophylaxis: GI Prophylaxis Protonix 40 mg IV q 24 hours DVT Prophylaxis -- SCDs Holding pharmacologic DVT prophylaxis in the setting of recent massive hemorrhage Lines: Left arm PICC line Right subclavian port Right radial arterial line Dispo: Admit to the ICU. He remains critically ill This patient remains critically ill with one or more organ systems which are or may become a threat to life. I have spent in excess of 41 minutes discontinuously in the care and management of this patient. This time is exclusive of procedures, and includes, but is not limited to, evaluation of the patient, review of the medical record, discussions with family, consultants, nursing staff, or respiratory therapy, and documentation in the medical record. Code Status Full Code Jass Sepulveda MD Jun 08, 2016 21:12
--- NOTE | 2016-06-08 21:43 | RADRPT ---
EXAM DATE/TIME: 06/08/2016 21:36 [facility] COMPARISON: CHEST SINGLE AP, June 06, 2016, 20:58. INDICATIONS : ET tube placement. MEDICAL HISTORY : None. SURGICAL HISTORY : None. ENCOUNTER: Initial ACUITY: 3 months PAIN SCORE: Non-responsive. LOCATION: Bilateral chest FINDINGS: A single view of the chest demonstrates the lungs to be symmetrically aerated without evidence of mas s, infiltrate or effusion. Endotracheal tube with tip approximately 8.5 cm above the skyler. Right-si ded portacatheter with tip in the SVC. Left-sided PICC line with tip in the SVC. The cardiomediastina l contours are unremarkable. Osseous structures are intact. Nasogastric tube tip in stomach. CONCLUSION: 1. Endotracheal tube 8.5 cm above the skyler. 2. Clear lungs. Scar Prasad MD on June 08, 2016 at 21:40 Board Certified Radiologist. This report was verified electronically.
[2016-06-08] MEDS ORDERED: PCA - TOTAL MG DILAUDID DELIVERED PER SHIFT SCH (22:00)
[2016-06-08 22:02] LABS: AUTOMATED NEUTROPHIL # 12.8 TH/MM3 (1.8-7.7); BASOPHIL # 0.1 TH/MM3 (0-0.2); BASOPHIL % 0.4 % (0.0-2.0); EOSINOPHIL % 0.1 % (0.0-4.0); HEMATOCRIT 28.5 % (39.0-51.0); HEMO FLAGS DIFF FINAL; LYMPHOCYTE # 2.6 TH/MM3 (1.0-4.8); MEAN CELL VOLUME 83.9 FL (80.0-100.0); MEAN CORPUSCULAR HEMOGLOBIN 28.9 PG (27.0-34.0); MEAN CORPUSCULAR HGB CONC 34.5 % (32.0-36.0); MONO % 9.2 % (0.0-8.0); NEUT % 75.3 % (16.0-70.0); PLATELET COUNT 206 TH/MM3 (150-450); RED CELL DISTRIBUTION WIDTH 15.2 % (11.6-17.2)
[2016-06-08 22:11] LABS: BLOOD GAS BASE EXCESS -0.2 mmol/L (-2-2); BLOOD GAS CARBOXYHEMOGLOBIN 1.6 % (0-4); BLOOD GAS HCO3 23 mmol/L (22-26); BLOOD GAS METHEMOGLOBIN 0.9 % (0-2); BLOOD GAS O2 HGB SATURATION 98 % (90-100); BLOOD GAS OXYGEN CONTENT 13.2 Vol % (12.0-20.0); BLOOD GAS PCO2 32 mmHg (38-42); BLOOD GAS PO2 305 mmHg (61-120); BLOOD GAS TOTAL HGB 9.1 G/DL (12.0-16.0); CRITICAL VALUE NO; OXYGEN DEVICE VENTILATOR; TEMP CORR TO 98.6
[2016-06-08 22:12] LABS: DRAW SITE ART LINE; FIO2 35 %; NUMBER OF ARTERIAL PUNCTURES 0; ULNAR PULSE PRESENT; VENT SETTINGS AC/10/550/PEEP5
[2016-06-08 22:13] LABS: STAT YES
[2016-06-08 22:29] LABS: BICARBONATE 28.3 MEQ/L (21.0-32.0); POTASSIUM 4.4 MEQ/L (3.5-5.1)
[2016-06-08 22:30] LABS: APTT (PATIENT) 26.4 SEC (24.3-30.1); PROTHROMBIN TIME - PATIENT 10.7 SEC (9.8-11.6)
[2016-06-08] MEDS: FAT EMULSION 20% INJ 250 ML (Daily over 8 hours) IV-CENTRAL SCH (22:41)
[2016-06-08] MEDS: CLINIMIX 4.25/25 (Cust.Renal Central) 1000 mL- </= 42 mls/hr IV-CENTRAL SCH ×8 (22:41)
[2016-06-08] MEDS: PROPOFOL 1000 MG/100 ML IV SCH (22:53)
[2016-06-08] MEDS: HYDROmorphone HCL PF 1 MG/ML VIAL IV PRN (22:54)
[2016-06-08] MEDS: fentaNYL 2,500 MCG/NS 250 ML IV SCH (23:08)
[2016-06-09] VITALS (16 sets, daily range): BP systolic 104–128; BP diastolic 58–70; PULSE 82–123; RESP 11–24; TEMP 98.3–101.9; O2SAT 95–100
[2016-06-09] MEDS: LACTATED RINGER'S 1000 ML INJ 1,000 ML IV SCH ×3 (00:30→16:05)
[2016-06-09] MEDS: metroNIDAZOLE 500 MG INJ 100 ML IV SCH ×4 (00:30→23:49)
[2016-06-09] MEDS: ceFAZolin 2 GM PREMIX 50 ML IV SCH ×3 (01:00→16:06)
[2016-06-09] MEDS ORDERED: POTASSIUM PHOSPHATE MONOBASIC 500 MG TAB PO/TUBE PRN (01:30)
[2016-06-09] MEDS ORDERED: SODIUM PHOSPHATE INJ 30 MMOL in SODIUM CHLOR 0.9% 250 ML INJ 240 ML IV PRN (01:30)
[2016-06-09] MEDS ORDERED: MAGNESIUM SULFATE INJ 4 GM in SODIUM CHLORIDE 0.9% INJ 92 ML IV PRN (01:30)
[2016-06-09] MEDS ORDERED: MAGNESIUM OXIDE 400 MG TAB PO PRN (01:30)
[2016-06-09] MEDS ORDERED: RESP: ALBUTEROL 2.5 MG/IPRATROPIUM 0.5 MG NEB (PRN) INH (01:30)
[2016-06-09] MEDS ORDERED: POTASSIUM PHOSPHATE INJ 30 MMOL in SODIUM CHLOR 0.9% 250 ML INJ 250 ML IV PRN (01:30)
[2016-06-09] MEDS ORDERED: MAGNESIUM SULFATE INJ 2 GM in SODIUM CHLORIDE 0.9% INJ 96 ML IV PRN (01:30)
[2016-06-09] MEDS ORDERED: POTASSIUM CHLOR 40 MEQ PREMIX 100 ML IV PRN (01:30)
[2016-06-09] MEDS ORDERED: POTASSIUM CHLOR 20 MEQ PREMIX 100 ML IV PRN ×2 (01:30)
[2016-06-09] MEDS ORDERED: DEXTROSE 50% IN WATER 50 ML VIAL(D50) IV PUSH PRN (01:30)
[2016-06-09] MEDS ORDERED: POTASSIUM PHOSPHATE MONOBASIC 500 MG TAB PO PRN (01:30)
[2016-06-09] MEDS ORDERED: POTASSIUM CL 40 MEQ/30 ML LIQ UDC PO/TUBE PRN ×2 (01:30)
[2016-06-09] MEDS: RESP: ALBUTEROL 2.5 MG/IPRATROPIUM 0.5 MG NEB (SCH) INH ×3 (03:05→21:02)
[2016-06-09] MEDS: PROPOFOL 1000 MG/100 ML IV SCH ×2 (03:22→07:18)
[2016-06-09] MEDS: HYDROmorphone HCL PF 1 MG/ML VIAL IV PRN (03:43)
--- NOTE | 2016-06-09 03:45 | RADRPT ---
EXAM DATE/TIME: 06/09/2016 02:34 [facility] COMPARISON: CHEST SINGLE AP, June 08, 2016, 21:36. INDICATIONS : Evaluate for pulmonary disease. MEDICAL HISTORY : None. SURGICAL HISTORY : None. ENCOUNTER: Subsequent ACUITY: 3 months PAIN SCORE: Non-responsive. LOCATION: Bilateral chest FINDINGS: Endotracheal tube, nasogastric tube, left PICC line and right chest port are again noted. Lungs are s ymmetrically aerated and grossly clear. Cardiomediastinal contours are stable and satisfactory. CONCLUSION: Stable chest appearance. Ochoa Crow MD on June 09, 2016 at 3:43 Board Certified Radiologist. This report was verified electronically.
--- NOTE | 2016-06-09 03:47 | RADRPT ---
EXAM DATE/TIME: 06/09/2016 02:37 [facility] COMPARISON: ABDOMEN KUB ONLY, June 08, 2016, 15:52. INDICATIONS : Evaluate for distention. MEDICAL HISTORY : None. SURGICAL HISTORY : None. ENCOUNTER: Subsequent ACUITY: 2 days PAIN SCORE: Non-responsive. LOCATION: Bilateral Abdomen FINDINGS: Bilateral ureteral stents and percutaneous nephrostomy tubes are again noted. A drainage catheter is also seen overlying the right lower quadrant urostomy. Midline skin amber are present. Multiple pel felicia surgical clips. Intestinal gas pattern is nonspecific and benign gas and stool present in normal caliber colon gas present occasional nondilated small bowel loops. Regional skeleton is grossly intac t. CONCLUSION: Grossly benign postoperative abdomen appearance as above Ochoa Crow MD on June 09, 2016 at 3:44 Board Certified Radiologist. This report was verified electronically.
[2016-06-09 05:39] LABS: AUTOMATED NEUTROPHIL # 9.6 TH/MM3 (1.8-7.7); BASOPHIL # 0.1 TH/MM3 (0-0.2); BASOPHIL % 0.9 % (0.0-2.0); EOSINOPHIL # 0.1 TH/MM3 (0-0.4); EOSINOPHIL % 0.6 % (0.0-4.0); HEMATOCRIT 25.3 % (39.0-51.0); HEMO FLAGS DIFF FINAL; LYMPH % 20.6 % (9.0-44.0); MEAN CELL VOLUME 84.3 FL (80.0-100.0); MEAN CORPUSCULAR HEMOGLOBIN 29.6 PG (27.0-34.0); MEAN CORPUSCULAR HGB CONC 35.2 % (32.0-36.0); MONO % 11.1 % (0.0-8.0); NEUT % 66.8 % (16.0-70.0); PLATELET COUNT 188 TH/MM3 (150-450); RED BLOOD COUNT 3.01 MIL/MM3 (4.50-5.90); RED CELL DISTRIBUTION WIDTH 15.9 % (11.6-17.2); WHITE BLOOD COUNT 14.3 TH/MM3 (4.0-11.0)
[2016-06-09 05:48] LABS: PROTHROMBIN TIME - PATIENT 11.4 SEC (9.8-11.6)
[2016-06-09] MEDS: INSULIN NovoLIN REGULAR SUPPLEMENTAL SCALE SQ SCH ×3 (06:00→17:57)
[2016-06-09 06:11] LABS: BICARBONATE 24.8 MEQ/L (21.0-32.0); CALCIUM-PROTEIN CORRECTED 8.7 MG/DL (8.5-10.1); MAGNESIUM 1.8 MG/DL (1.5-2.5); POTASSIUM 3.9 MEQ/L (3.5-5.1); TOTAL BILIRUBIN ADULT 0.4 MG/DL (0.2-1.0)
[2016-06-09] MEDS: fentaNYL 2,500 MCG/NS 250 ML IV SCH ×2 (07:18→23:48)
[2016-06-09] MEDS: ACETAMINOPHEN 325 MG TAB PO PRN (09:10)
[2016-06-09] MEDS: LACTOBACILLUS ACIDOPHILUS 1 GM PACKET PO SCH ×4 (09:10→21:06)
[2016-06-09] MEDS: SODIUM CHLORIDE 0.9% FLUSH 5 ML FLUSH FLUSH SCH ×2 (09:11→23:49)
--- NOTE | 2016-06-09 09:46 | HHI.CCPN ---
Subjective Remarks/Hospital Course Is a 50-year-old male with a history of neurogenic bladder who was recently diagnosed with new locally advanced muscle invasive bladder cancer who underwent neoadjuvant chemotherapy and is now postop day 0 status post open radical cystectomy. His intraoperative course was complicated by a 4 L EBL with massive resuscitation. He was left intubated for concerns over fluid shifts. I evaluated the patient in the PACU. He was still intubated and sedated. He cannot participate in a history. He was on phenylephrine infusion at 50 mics per minute. Critical-care medicine is consulted to evaluate and manage his postresuscitation and postoperative care. 06/09: Good gas exchange. Well perfused. Urine output acceptable. Objective Vital Signs Date Time Temp Pulse Resp B/P Pulse Ox O2 Delivery O2 Flow Rate FiO2 06/09/16 06:00 112 06/09/16 04:30 100 30 06/09/16 04:00 98.8 12 112/58 06/08/16 20:15 Mechanical Ventilator Intake and Output 06/08/16 06/08/16 06/09/16 08:00 16:00 00:00 Intake Total 3856 ml 24376 ml Output Total 2775 ml 5830 ml Balance 1081 ml 9916 ml Result Diagram: 06/09/16 0525 06/09/16 0525 Other Results Laboratory Tests Test 06/08/16 06/08/16 06/08/16 12:51 17:40 21:59 Blood Gas Puncture Site DRAWN IN OR ART LINE ART LINE Blood Gas Patient Temperature 98.6 98.6 98.6 Blood Gas HCO3 19 mmol/L 23 mmol/L 23 mmol/L (22-26) (22-26) (22-26) Blood Gas Base Excess -6.7 mmol/L -1.3 mmol/L -0.2 mmol/L (-2-2) (-2-2) (-2-2) Blood Gas Oxygen Saturation 97 % (90-100) 96 % (90-100) 98 % (90-100) Arterial Blood pH 7.27 7.40 7.47 (7.380-7.420) (7.380-7.420) (7.380-7.420) Arterial Blood Partial 43 mmHg (38-42) 38 mmHg (38-42) 32 mmHg (38-42) Pressure CO2 Arterial Blood Partial 219 mmHg 220 mmHg 305 mmHg Pressure O2 (61-120) (61-120) (61-120) Arterial Blood Oxygen Content 14.5 Vol % 12.5 Vol % 13.2 Vol % (12.0-20.0) (12.0-20.0) (12.0-20.0) Arterial Blood 1.9 % (0-4) 2.3 % (0-4) 1.6 % (0-4) Carboxyhemoglobin Arterial Blood Methemoglobin 0.9 % (0-2) 1.2 % (0-2) 0.9 % (0-2) Blood Gas Hemoglobin 10.3 G/DL 8.8 G/DL 9.1 G/DL (12.0-16.0) (12.0-16.0) (12.0-16.0) Oxygen Delivery Device VENTILATOR VENTILATOR VENTILATOR Blood Gas Ventilator Setting OR SETTINGS 550/10/PEEP5/45% AC/10/550/PEEP5 Blood Gas Inspired Oxygen 45 % 35 % Objective Remarks GENERAL: Middle-aged male, intubated, sedated. HEENT: Normocephalic. Atraumatic. NECK: Orotracheally intubated. CHEST: Clear to auscultation. Mechanically ventilated. Strong on CPAP. CARDIOVASCULAR: Normal rate, regular rhythm. No JVD. ABDOMEN: Midline incision is clean and dry. Urostomy tubes with clear yellow urine. There is a Zuniga catheter that exits the penis that per report is a pelvic drain to traction. Has minimal output. MUSCULOSKELETAL: No peripheral edema. Distal pulses 2+. Warm, well perfused. NEUROLOGICAL: Moves 4 limbs wit strength. Follows commands. Procedures nephrostomy tube placement by IR 06/03/16 A/P Assessment and Plan Plan by systems: Neurologic: Acute postoperative pain d/c Fentanyl and propofol for goal RASS Goal RASS -2 Respiratory: Postoperative pulmonary insufficiency Vent bundle Head of bed at 30 Low tidal by ventilation training 6 cc/kg ideal body weight Wean FiO2 for goal SPO2 greater than 90% Does not meet SBT criteria tonight given massive transfusion Nebs every 6 and every 2 when necessary -Extubate Cardiovascular: Hypovolemic shock Resolving. Continue phenylephrine for goal map greater than 65 Continue maintenance fluids at 125 an hour -Resolved. Renal: Acute on chronic kidney injury Status post radical cystectomy Continue strict I's and O's with monitoring from nephrostomy tube Zuniga catheter which exits the penis is actually a pelvic drain. Continue this to traction. -- Strict I/Os FEN/GI: Acute protein calorie malnutritionmild Intravascular hypovolemia Continue maintenance fluids as above Nothing by mouth ICU electrolyte protocol Daily BMP Heme/ID: Anemia acute blood loss Perioperative antibiotics per surgeon Does not meet transfusion trigger at this time Goal hemoglobin greater than 7 Daily CBC Follow-up postop coags and CBC Endocrine: Hyperglycemia of critical illness -- SSI, every 6 hours, medium scale Prophylaxis: GI Prophylaxis Protonix 40 mg IV q 24 hours DVT Prophylaxis -- SCDs Holding pharmacologic DVT prophylaxis in the setting of recent massive hemorrhage Lines: Left arm PICC line Right subclavian port Right radial arterial line Overall impression: Good progress s/p major urological procedure. Jimi Taylor MD Jun 09, 2016 09:46
--- NOTE | 2016-06-09 11:27 | HHI.IDPN ---
Note Infectious Disease Note Notes reviewed. Patient is day 1 post radical cystectomy. On the vent and is responsive. Indicates he has pain. Afebrile. This is a 50-year-old white male who was diagnosed with bladder carcinoma. The patient was noted to have locally advanced muscle invasive bladder cancer and he has been undergoing perioperative chemotherapy. He was discharged from the hospital recently with antibiotic treatment for UTI. He developed intractable bladder pain along with nausea and vomiting and was sent back to the emergency department for evaluation. PAST MEDICAL HISTORY 1. Hypertension, 2. Neurogenic bladder 3. History of spinal tumor of 20 years ago 4. Status post resection of bladder carcinoma diagnosed in January 2016 ALLERGIES NO KNOWN DRUG ALLERGIES. Current Medications Medications (Trade) Dose Ordered Sig/Ambika Route PRN Reason Start Time Stop Time Status Last Admin Dose Admin Lactobacillus Acidophilus (Lactinex Pkt) 1 gm QID PO 06/01/16 13:00 06/09/16 09:10 IV Flush (NS Flush) 2 ml UNSCH PRN FLUSH FLUSH AFTER USING IV ACCESS 06/01/16 11:30 IV Flush (NS Flush) 2 ml BID FLUSH 06/01/16 21:00 06/09/16 09:11 Acetaminophen (Tylenol) 650 mg Q4H PRN PO TEMP > 100.4 06/01/16 11:30 06/09/16 09:10 Bisacodyl (Dulcolax Supp) 10 mg DAILY PRN MI CONSTIPATION 06/01/16 11:30 Magnesium Hydroxide (Milk Of Cj Crawford) 30 ml Q12H PRN PO CONSTIPATION 06/01/16 11:30 Sennosides 17.2 mg 17.2 mg Q12H PRN PO CONSTIPATION 06/01/16 11:30 Daptomycin/Sodium Chloride (Cubicin Inj/NS Inj) 100 ml @ 200 mls/hr Q48H IV 06/01/16 20:00 06/07/16 20:21 Pantoprazole Sodium 40 mg 40 mg Q24H IV PUSH 06/01/16 17:00 06/07/16 17:09 Sodium Chloride/ Sodium Acetate/ Potassium Chloride/ Magnesium Chloride/Calcium Chloride/ Multivitamins/ Folic Acid/Amino Acids/Dextrose (Sodium Chloride 23.4% Inj/Sodium Acetate Inj/KCl Inj/Magnesium Chloride Inj/ Calcium Chloride Inj/Mvi-12 Inj/ Folvite Inj/ Clinimix 4.25/25) 1,042.1719 ml @ 42 mls/hr Q24H IV-CENTRAL 06/02/16 20:00 06/08/16 22:41 Hydromorphone HCl (Dilaudid Pf Inj) 0.5 mg Q4H PRN IV Pain 3-5; if unable to take PO 06/03/16 14:30 Hydromorphone HCl (Dilaudid Pf Inj) 1 mg Q4H PRN IV Pain 6-10;if unable to take PO 06/03/16 14:30 06/08/16 22:54 Hydromorphone HCl (Dilaudid Pf Inj) 1 mg Q4H PRN IV BREAKTHROUGH PAIN 06/03/16 14:30 06/09/16 03:43 Patient Own Medication 1 ea DAILY PO 06/04/16 09:00 Ondansetron HCl (Zofran Inj) 4 mg Q6H PRN IV PUSH nausea and vomiting 06/03/16 23:15 06/07/16 12:12 IV Flush (NS Flush) See Protocol DAILY IVF 06/07/16 09:00 06/09/16 09:10 IV Flush (NS Flush) See Protocol UNSCH PRN IVF SEE PROTOCOL TABLE 06/06/16 16:15 Heparin Sodium (Porcine) (Heparin Central Flush) See Protocol DAILY IVF 06/07/16 09:00 06/09/16 09:10 Heparin Sodium (Porcine) (Heparin Central Flush) See Protocol UNSCH PRN IVF SEE PROTOCOL TABLE 06/06/16 16:15 IV Flush See Protocol UNSCH PRN IVF SEE PROTOCOL TABLE 06/06/16 16:15 Cefazolin Sodium/ Dextrose 50 ml @ 100 mls/hr Q8H IV 06/08/16 17:00 06/09/16 09:11 Metronidazole (Flagyl 500 Mg Inj) 100 ml @ 100 mls/hr Q8H IV 06/08/16 16:30 06/09/16 09:11 Acetaminophen 650 mg 650 mg Q6H PRN RECTAL temp >100.6 06/08/16 16:30 Fluconazole/ Sodium Chloride (Diflucan 200 Mg Premix Bag) 100 ml @ 100 mls/hr Q24H IV 06/08/16 17:00 06/08/16 18:44 Heparin Sodium (Porcine) 100 units 100 units DAILY IV FLUSH 06/09/16 09:00 06/09/16 09:10 Lactated Ringer's 1,000 ml @ 125 mls/hr Q8H IV 06/08/16 16:30 06/09/16 09:12 Propofol 100 ml @ 0 mls/hr TITRATE IV 06/08/16 17:30 06/09/16 07:18 Phenylephrine HCl/ Dextrose (Neosynephrine Inj/D5W 500 ml Inj) 500 ml @ 0 mls/hr TITRATE IV 06/08/16 17:30 06/09/16 07:19 Terbutaline Sulfate (Brethine Inj) 1 mg UNSCH PRN SQ FOR EXTRAVASATION PROTOCOL 06/08/16 17:30 Miscellaneous Information ALL NURSING DEPARTME... UNSCH PRN XX SEE LABEL COMMENTS 06/08/16 17:00 06/09/16 16:59 Naloxone HCl 0.4 mg 0.4 mg UNSCH PRN IV RESPIRATORY RATE LESS THAN 10 06/08/16 17:45 Fat Emulsion Intravenous 250 ml @ 31.25 mls/ hr Q24H IV-CENTRAL 06/08/16 20:00 06/08/16 22:41 Fentanyl Citrate (fentaNYL DRIP) 250 ml @ 0 mls/hr TITRATE IV 06/08/16 22:00 06/09/16 07:18 Magnesium Oxide 800 mg 800 mg UNSCH PRN PO For Magnesium 1.2 - 1.6 mg/dL 06/09/16 01:30 Magnesium Sulfate 4 gm/Sodium Chloride 100 ml @ 50 mls/hr UNSCH PRN IV For Magnesium 0.9 - 1.1 mg/dL 06/09/16 01:30 Magnesium Sulfate 2 gm/Sodium Chloride 100 ml @ 50 mls/hr UNSCH PRN IV For Magnesium 1.2 - 1.6 mg/dL 06/09/16 01:30 Potassium Chloride 100 ml @ 50 mls/hr Q2H PRN IV For Potassium 2.8 - 3.2 mEq/L 06/09/16 01:30 Potassium Chloride 100 ml @ 50 mls/hr Q2H PRN IV For Potassium 3.3 - 3.5 mEq/L 06/09/16 01:30 Potassium Chloride 100 ml @ 50 mls/hr Q2H PRN IV For Potassium 2.8 - 3.2 mEq/L 06/09/16 01:30 Potassium Chloride (KCl 40 Meq Premix Inj) 100 ml @ 25 mls/hr UNSCH PRN IV For Potassium 3.3 - 3.5 mEq/L 06/09/16 01:30 Potassium Chloride (KCl 40 Meq/30 ml Liq) 40 meq UNSCH PRN PO/TUBE For Potassium 3.3 - 3.5 mEq/L 06/09/16 01:30 Potassium Chloride (KCl 40 Meq/30 ml Liq) 40 meq UNSCH PRN PO/TUBE SEE LABEL COMMENTS 06/09/16 01:30 Potassium Phosphate (K-Phos) 2,000 mg Q4H PRN PO For Phosphorus < 2.5 mg/dL 06/09/16 01:30 Potassium Phosphate 2000 mg 2,000 mg UNSCH PRN PO/TUBE SEE LABEL COMMENTS 06/09/16 01:30 Potassium Phosphate 30 mmol/ Sodium Chloride 260 ml @ 42 mls/hr UNSCH PRN IV SEE LABEL COMMENTS 06/09/16 01:30 Sodium Phosphate/ Sodium Chloride (Sodium Phosphate Inj/NS 250 ml Inj) 250 ml @ 42 mls/hr UNSCH PRN IV For Phosphorus < 2.5 mg/dL 06/09/16 01:30 Dextrose (D50w (Vial) Inj) 25 ml UNSCH PRN IV PUSH HYPOGLYCEMIA-SEE COMMENTS 06/09/16 01:30 Insulin Human Regular (NovoLIN R SUPPLEMENTAL SCALE) 1 Q6HR SQ 06/09/16 06:00 SOCIAL HISTORY No tobacco or alcohol. No illicit drugs. FAMILY HISTORY Lymphoma in the patient's father. REVIEW OF SYSTEMS Pertinent as mentioned in history of present illness. OBJECTIVE: Vital Signs Date Time Temp Pulse Resp B/P Pulse Ox O2 Delivery O2 Flow Rate FiO2 06/09/16 09:44 96 30 06/09/16 06:00 112 06/09/16 04:30 100 30 06/09/16 04:00 98.8 104 12 112/58 99 06/09/16 04:00 104 06/09/16 02:00 96 06/09/16 01:06 100 30 06/09/16 00:00 98.9 82 11 104/68 100 06/09/16 00:00 82 06/08/16 22:00 110 06/08/16 21:00 104 06/08/16 21:00 98.3 104 12 122/76 100 06/08/16 21:00 100 35 06/08/16 20:55 100 100 06/08/16 20:15 76 12 117/67 100 Mechanical Ventilator 50 121/66 06/08/16 19:15 85 12 112/64 100 Mechanical Ventilator 50 114/61 06/08/16 18:15 99 12 103/65 100 Mechanical Ventilator 50 101/60 06/08/16 17:50 100 35 06/08/16 17:15 97 12 96/61 100 Mechanical Ventilator 50 94/50 06/08/16 17:00 99 12 99/64 100 Mechanical Ventilator 50 97/52 06/08/16 16:45 97.8 108 12 107/65 100 Mechanical Ventilator 50 100/52 06/08/16 16:45 100 50 06/08/16 06/08/16 06/09/16 15:00 23:00 07:00 Intake Total 73858 ml 2109 ml Output Total 5830 ml 1100 ml Balance 9916 ml 1009 ml IV Total 1816 ml 1560 ml TPN/PPN 315 ml Lipid 234 ml Albumin 100 ml Packed Cells 2000 ml FFP 1000 ml Platelets 330 ml Other 84873 ml Gastric Drainage Total 100 ml 75 ml Drainage Total 1030 ml 1025 ml Estimated Blood Loss 4000 ml Other 700 ml # Bowel Movements 0 0 Laboratory Tests Test 06/07/16 06/08/16 06/08/16 06/08/16 18:35 04:40 10:26 11:57 Hemoglobin 11.0 GM/DL 11.0 GM/DL 9.2 GM/DL 11.7 GM/DL Hematocrit 31.5 % 31.3 % 27.1 % 34.4 % White Blood Count 11.8 TH/MM3 12.5 TH/MM3 Red Blood Count 3.73 MIL/MM3 3.18 MIL/MM3 Mean Corpuscular Volume 83.9 FL 85.0 FL Mean Corpuscular Hemoglobin 29.4 PG 28.8 PG Mean Corpuscular Hemoglobin 35.1 % 33.9 % Concent Red Cell Distribution Width 16.5 % 15.8 % Platelet Count 208 TH/MM3 191 TH/MM3 Mean Platelet Volume 7.5 FL 7.7 FL Neutrophils (%) (Auto) 87.6 % Lymphocytes (%) (Auto) 6.2 % Monocytes (%) (Auto) 2.1 % Eosinophils (%) (Auto) 3.6 % Basophils (%) (Auto) 0.5 % Neutrophils # (Auto) 11.0 TH/MM3 Lymphocytes # (Auto) 0.8 TH/MM3 Monocytes # (Auto) 0.3 TH/MM3 Eosinophils # (Auto) 0.4 TH/MM3 Basophils # (Auto) 0.1 TH/MM3 CBC Comment DIFF FINAL Differential Comment Test 06/08/16 06/08/16 06/09/16 17:00 21:32 05:25 White Blood Count 17.4 TH/MM3 17.0 TH/MM3 14.3 TH/MM3 Red Blood Count 3.46 MIL/MM3 3.40 MIL/MM3 3.01 MIL/MM3 Hemoglobin 10.2 GM/DL 9.8 GM/DL 8.9 GM/DL Hematocrit 29.4 % 28.5 % 25.3 % Mean Corpuscular Volume 84.9 FL 83.9 FL 84.3 FL Mean Corpuscular Hemoglobin 29.4 PG 28.9 PG 29.6 PG Mean Corpuscular Hemoglobin 34.6 % 34.5 % 35.2 % Concent Red Cell Distribution Width 15.2 % 15.2 % 15.9 % Platelet Count 192 TH/MM3 206 TH/MM3 188 TH/MM3 Mean Platelet Volume 7.4 FL 7.8 FL 7.9 FL Neutrophils (%) (Auto) 75.3 % 66.8 % Lymphocytes (%) (Auto) 15.0 % 20.6 % Monocytes (%) (Auto) 9.2 % 11.1 % Eosinophils (%) (Auto) 0.1 % 0.6 % Basophils (%) (Auto) 0.4 % 0.9 % Neutrophils # (Auto) 12.8 TH/MM3 9.6 TH/MM3 Lymphocytes # (Auto) 2.6 TH/MM3 3.0 TH/MM3 Monocytes # (Auto) 1.6 TH/MM3 1.6 TH/MM3 Eosinophils # (Auto) 0.0 TH/MM3 0.1 TH/MM3 Basophils # (Auto) 0.1 TH/MM3 0.1 TH/MM3 CBC Comment DIFF FINAL DIFF FINAL Differential Comment Laboratory Tests Test 06/08/16 06/08/16 06/08/16 06/09/16 04:40 17:00 21:32 05:25 Sodium Level 142 MEQ/L 142 MEQ/L 142 MEQ/L 139 MEQ/L Potassium Level 3.8 MEQ/L 4.6 MEQ/L 4.4 MEQ/L 3.9 MEQ/L Chloride Level 106 MEQ/L 105 MEQ/L 105 MEQ/L 104 MEQ/L Carbon Dioxide Level 28.7 MEQ/L 26.0 MEQ/L 28.3 MEQ/L 24.8 MEQ/L Anion Gap 7 MEQ/L 11 MEQ/L 9 MEQ/L 10 MEQ/L Blood Urea Nitrogen 15 MG/DL 15 MG/DL 15 MG/DL 15 MG/DL Creatinine 1.37 MG/DL 1.36 MG/DL 1.37 MG/DL 1.34 MG/DL Estimat Glomerular Filtration 55 ML/MIN 56 ML/MIN 55 ML/MIN 57 ML/MIN Rate Random Glucose 111 MG/DL 142 MG/DL 127 MG/DL 138 MG/DL Calcium Level 8.6 MG/DL 7.4 MG/DL 7.5 MG/DL 7.3 MG/DL Protein Corrected Calcium 8.8 MG/DL 8.7 MG/DL Total Bilirubin 1.7 MG/DL 0.4 MG/DL Aspartate Amino Transf 17 U/L 18 U/L (AST/SGOT) Alanine Aminotransferase 22 U/L 20 U/L (ALT/SGPT) Alkaline Phosphatase 52 U/L 52 U/L Total Protein 4.6 GM/DL 4.6 GM/DL Albumin 2.4 GM/DL 2.0 GM/DL Phosphorus Level 3.6 MG/DL Magnesium Level 1.8 MG/DL Triglycerides Level 141 MG/DL IMAGING: Chest X-Ray 06/09/16 0600 Signed Impressions: Service Date/Time: May 02:34 - CONCLUSION: Stable chest appearance. Ochoa Crow MD Abdomen X-Ray 06/09/16 0600 Signed Impressions: Service Date/Time: May 02:37 - CONCLUSION: Grossly benign postoperative abdomen appearance as above Ochoa Crow MD Chest X-Ray 06/08/16 0000 Signed Impressions: Service Date/Time: Wednesday, June 08, 2016 21:36 - CONCLUSION: 1. Endotracheal tube 8.5 cm above the skyler. 2. Clear lungs. Scar Prasad MD Abdomen X-Ray 06/08/16 0000 Signed Impressions: Service Date/Time: Wednesday, June 08, 2016 15:52 - CONCLUSION: Postop abdomen. Rufino Canchola MD Chest X-Ray 06/04/16 0347 Signed Impressions: Service Date/Time: Saturday, June 04, 2016 03:48 - CONCLUSION: No acute cardiopulmonary disease. Abdullahi Dos Santos MD Lower Extremity Ultrasound 06/01/16 0000 Signed Impressions: Service Date/Time: Wednesday, June 01, 2016 20:57 - CONCLUSION: No DVT in the right leg. Scar Prasad MD Abdomen/Pelvis CT 06/01/16 0000 Signed Impressions: Service Date/Time: Wednesday, June 01, 2016 18:19 - CONCLUSION: 1. Bilateral new severe hydronephrosis. 2. Heterogeneous appearance to the bladder could be from hematoma and/or mass. 3. Multiple pelvic masses are again noted, some of which are new, with increase in size of pelvic lymphadenopathy and retroperitoneal lymphadenopathy. Scar Prasad MD PHYSICAL EXAMINATION GENERAL: No acute distress. He is awake and alert and responsive. HEENT: Head atraumatic. Extraocular movements grossly intact, pupils reactive to light without icterus. NECK: Supple without adenopathy or swelling. LUNGS: Clear breath sounds HEART: Regular rate and rhythm. ABDOMEN: Bowel sounds present, soft. EXTREMITIES: No clubbing, cyanosis or edema. SKIN: No rash. NEUROLOGIC: Grossly nonfocal. PSYCHIATRIC: Calm and cooperative. IMPRESSION 1. Urinary tract infection. 2. Neurogenic bladder 3. Bladder carcinoma. S/P radical cystectomy. 4. Acute renal insufficiency. Improving. RECOMMENDATIONS 1. Continue Daptomycin. 2. Continue fluconazole. 3. Also on Flagyl, Ancef. 4. Follow WBC. Levy Zhao MD Jun 09, 2016 11:27
--- NOTE | 2016-06-09 11:43 | HHI.PR ---
Subjective Remarks Pt seen and examined. Responds to verbal stimuli. Plan to extubate today. Objective Vital Signs Vital Signs Date Time Temp Pulse Resp B/P Pulse Ox O2 Delivery O2 Flow Rate FiO2 06/09/16 09:44 96 30 06/09/16 06:00 112 06/09/16 04:30 100 30 06/09/16 04:00 98.8 104 12 112/58 99 06/09/16 04:00 104 06/09/16 02:00 96 06/09/16 01:06 100 30 06/09/16 00:00 98.9 82 11 104/68 100 06/09/16 00:00 82 06/08/16 22:00 110 06/08/16 21:00 104 06/08/16 21:00 98.3 104 12 122/76 100 06/08/16 21:00 100 35 06/08/16 20:55 100 100 06/08/16 20:15 76 12 117/67 100 Mechanical Ventilator 50 121/66 06/08/16 19:15 85 12 112/64 100 Mechanical Ventilator 50 114/61 06/08/16 18:15 99 12 103/65 100 Mechanical Ventilator 50 101/60 06/08/16 17:50 100 35 06/08/16 17:15 97 12 96/61 100 Mechanical Ventilator 50 94/50 06/08/16 17:00 99 12 99/64 100 Mechanical Ventilator 50 97/52 06/08/16 16:45 97.8 108 12 107/65 100 Mechanical Ventilator 50 100/52 06/08/16 16:45 100 50 I/O 06/08/16 06/08/16 06/08/16 06/09/16 06/09/16 06/09/16 07:00 15:00 23:00 07:00 15:00 23:00 Intake Total 3856 ml 18956 ml 2109 ml Output Total 2775 ml 5830 ml 1100 ml Balance 1081 ml 9916 ml 1009 ml Intake Oral 380 ml IV Total 2265 ml 1816 ml 1560 ml TPN/PPN 960 ml 315 ml Lipid 251 ml 234 ml Albumin 100 ml Packed Cells 2000 ml FFP 1000 ml Platelets 330 ml Other 34926 ml Output Urine Total 50 ml Gastric Drainage Total 100 ml 75 ml Drainage Total 2725 ml 1030 ml 1025 ml Estimated Blood Loss 4000 ml Other 700 ml # Bowel Movements 0 0 Result Diagram: 06/09/16 0525 06/09/1625 Objective Remarks Abd:soft,some tenderness, ND Zuniga now with clear urine 06/03 Abd:soft,nd, mild tenderness Zuniga: rahul urine 06/06 Abd:soft, tender on exam Urine: dark blood PCNT's both with bloody urine 06/07 Abd:soft,tender on exam Zuniga irrigated at bedside; pink color PCNT's with bloody urine Ext: neg 06/08 CV: sinus tach Lungs: BS bilaterally Abd:soft, slight distension, NT Stoma: pink and viable; urine rahul B/L PCNT's: rahul urine Pelvic drain: bloody; minimal output Ext: 2+ edema Assessment and Plan Assessment and Plan 50 y.o male with muscle invasive bladder cancer with evidence of worsening adenopathy and hydronephrosis. Bone scan to r/o ronald metastasis. IR consult to place bilateral nephrostomy tubes to help improve renal function Options of treatment discussed with family: Continued chemotherapy with XRT vs palliative surgery. If bone scan is negative would recommend palliative cystectomy. Pt understands this is not curative but ferry terminal agent it would reduce readmissions and improve quality of life for now. Will need to correct anemia/thrombocytopenia and need to improve nutritional status. Will start TPN. Albumin is 2.4 at present. Hope to perform cystectomy next week. 06/03 50 y.o male with muscle invasive bladder cancer with evidence of worsening adenopathy and hydronephrosis. Bone scan negative for ronald metastasis. For bilateral PCNT's today Continue TPN For PICC line placement in near future 06/06 50 y.o male with muscle invasive bladder cancer For 2 more units of PRBC;s today PICC line today Replace K+ Continue TPN OR on Monday if Hgb at 10 or above 06/07 50 y.o male with muscle invasive bladder cancer 2 more units of PRBC's today for Hgb 7.9 Replace K OR in AM 06/08 Stable s/p Radical cystoprostatectomy with b/l PLND and ileal conduit creation Extubate today Ween of pressors as pt tolerates Continue TPN OOB tomorrow to chair if extubated Eulogio Lee DO Jun 09, 2016 11:43
[2016-06-09] MEDS: GENTAMICIN 80 MG PREMIX 100 ML IV SCH ×2 (15:18→23:49)
[2016-06-09] MEDS: FLUCONAZOLE 200 MG PREMIX BAG 100 ML IV SCH (16:05)
[2016-06-09] MEDS: PANTOPRAZOLE SODIUM 40 MG VIAL IV PUSH SCH (16:06)
--- NOTE | 2016-06-09 16:08 | PD.ONC.PN ---
Subjective Subjective Remarks Tmax 101.9. Late entry, patient seen at 12:30PM. Patient intubated, sedated. Objective Data Date Time Temp Pulse Resp B/P Pulse Ox O2 Delivery O2 Flow Rate FiO2 06/09/16 14:00 95 Nasal Cannula 3 06/09/16 14:00 95 Nasal Cannula 3.00 06/09/16 14:00 121 06/09/16 12:00 101.9 123 15 128/60 98 06/09/16 12:00 123 06/09/16 10:00 116 06/09/16 09:44 96 30 06/09/16 08:00 101.1 112 13 118/64 100 06/09/16 08:00 112 06/09/16 06:00 112 06/09/16 04:30 100 30 06/09/16 04:00 98.8 104 12 112/58 99 06/09/16 04:00 104 06/09/16 02:00 96 06/09/16 01:06 100 30 06/09/16 00:00 98.9 82 11 104/68 100 06/09/16 00:00 82 06/08/16 22:00 110 06/08/16 21:00 104 06/08/16 21:00 98.3 104 12 122/76 100 06/08/16 21:00 100 35 06/08/16 20:55 100 100 06/08/16 20:15 76 12 117/67 100 Mechanical Ventilator 50 121/66 06/08/16 19:15 85 12 112/64 100 Mechanical Ventilator 50 114/61 06/08/16 18:15 99 12 103/65 100 Mechanical Ventilator 50 101/60 06/08/16 17:50 100 35 06/08/16 17:15 97 12 96/61 100 Mechanical Ventilator 50 94/50 06/08/16 17:00 99 12 99/64 100 Mechanical Ventilator 50 97/52 06/08/16 16:45 97.8 108 12 107/65 100 Mechanical Ventilator 50 100/52 06/08/16 16:45 100 50 06/09/16 06/09/16 06/09/16 07:00 15:00 23:00 Intake Total 2109 ml 1662 ml Output Total 1100 ml 1410 ml Balance 1009 ml 252 ml Result Diagram: 06/09/16 0525 06/09/16524 Laboratory Results Laboratory Tests Test 06/08/16 06/08/16 06/08/16 06/08/16 17:00 17:40 21:32 21:59 White Blood Count 17.4 TH/MM3 17.0 TH/MM3 Red Blood Count 3.46 MIL/MM3 3.40 MIL/MM3 Hemoglobin 10.2 GM/DL 9.8 GM/DL Hematocrit 29.4 % 28.5 % Mean Corpuscular Volume 84.9 FL 83.9 FL Mean Corpuscular Hemoglobin 29.4 PG 28.9 PG Mean Corpuscular Hemoglobin 34.6 % 34.5 % Concent Red Cell Distribution Width 15.2 % 15.2 % Platelet Count 192 TH/MM3 206 TH/MM3 Mean Platelet Volume 7.4 FL 7.8 FL Prothrombin Time 11.5 SEC 10.7 SEC Prothromb Time International 1.0 RATIO 1.0 RATIO Ratio Activated Partial 28.1 SEC 26.4 SEC Thromboplast Time Fibrinogen 227 mg/dL Sodium Level 142 MEQ/L 142 MEQ/L Potassium Level 4.6 MEQ/L 4.4 MEQ/L Chloride Level 105 MEQ/L 105 MEQ/L Carbon Dioxide Level 26.0 MEQ/L 28.3 MEQ/L Anion Gap 11 MEQ/L 9 MEQ/L Blood Urea Nitrogen 15 MG/DL 15 MG/DL Creatinine 1.36 MG/DL 1.37 MG/DL Estimat Glomerular Filtration 56 ML/MIN 55 ML/MIN Rate Random Glucose 142 MG/DL 127 MG/DL Calcium Level 7.4 MG/DL 7.5 MG/DL Protein Corrected Calcium 8.8 MG/DL Total Bilirubin 1.7 MG/DL Aspartate Amino Transf 17 U/L (AST/SGOT) Alanine Aminotransferase 22 U/L (ALT/SGPT) Alkaline Phosphatase 52 U/L Total Protein 4.6 GM/DL Albumin 2.4 GM/DL Blood Gas Puncture Site ART LINE ART LINE Blood Gas Patient Temperature 98.6 98.6 Blood Gas HCO3 23 mmol/L 23 mmol/L Blood Gas Base Excess -1.3 mmol/L -0.2 mmol/L Blood Gas Oxygen Saturation 96 % 98 % Arterial Blood pH 7.40 7.47 Arterial Blood Partial 38 mmHg 32 mmHg Pressure CO2 Arterial Blood Partial 220 mmHg 305 mmHg Pressure O2 Arterial Blood Oxygen Content 12.5 Vol % 13.2 Vol % Arterial Blood 2.3 % 1.6 % Carboxyhemoglobin Arterial Blood Methemoglobin 1.2 % 0.9 % Blood Gas Hemoglobin 8.8 G/DL 9.1 G/DL Oxygen Delivery Device VENTILATOR VENTILATOR Blood Gas Ventilator Setting 550/10/PEEP5/45% AC/10/550/PEEP5 Blood Gas Inspired Oxygen 45 % 35 % Neutrophils (%) (Auto) 75.3 % Lymphocytes (%) (Auto) 15.0 % Monocytes (%) (Auto) 9.2 % Eosinophils (%) (Auto) 0.1 % Basophils (%) (Auto) 0.4 % Neutrophils # (Auto) 12.8 TH/MM3 Lymphocytes # (Auto) 2.6 TH/MM3 Monocytes # (Auto) 1.6 TH/MM3 Eosinophils # (Auto) 0.0 TH/MM3 Basophils # (Auto) 0.1 TH/MM3 CBC Comment DIFF FINAL Differential Comment Test 06/09/16 05:25 White Blood Count 14.3 TH/MM3 Red Blood Count 3.01 MIL/MM3 Hemoglobin 8.9 GM/DL Hematocrit 25.3 % Mean Corpuscular Volume 84.3 FL Mean Corpuscular Hemoglobin 29.6 PG Mean Corpuscular Hemoglobin 35.2 % Concent Red Cell Distribution Width 15.9 % Platelet Count 188 TH/MM3 Mean Platelet Volume 7.9 FL Neutrophils (%) (Auto) 66.8 % Lymphocytes (%) (Auto) 20.6 % Monocytes (%) (Auto) 11.1 % Eosinophils (%) (Auto) 0.6 % Basophils (%) (Auto) 0.9 % Neutrophils # (Auto) 9.6 TH/MM3 Lymphocytes # (Auto) 3.0 TH/MM3 Monocytes # (Auto) 1.6 TH/MM3 Eosinophils # (Auto) 0.1 TH/MM3 Basophils # (Auto) 0.1 TH/MM3 CBC Comment DIFF FINAL Differential Comment Prothrombin Time 11.4 SEC Prothromb Time International 1.0 RATIO Ratio Sodium Level 139 MEQ/L Potassium Level 3.9 MEQ/L Chloride Level 104 MEQ/L Carbon Dioxide Level 24.8 MEQ/L Anion Gap 10 MEQ/L Blood Urea Nitrogen 15 MG/DL Creatinine 1.34 MG/DL Estimat Glomerular Filtration 57 ML/MIN Rate Random Glucose 138 MG/DL Calcium Level 7.3 MG/DL Protein Corrected Calcium 8.7 MG/DL Phosphorus Level 3.6 MG/DL Magnesium Level 1.8 MG/DL Total Bilirubin 0.4 MG/DL Aspartate Amino Transf 18 U/L (AST/SGOT) Alanine Aminotransferase 20 U/L (ALT/SGPT) Alkaline Phosphatase 52 U/L Total Protein 4.6 GM/DL Albumin 2.0 GM/DL Triglycerides Level 141 MG/DL Imaging Studies Last 24 hours Impressions Chest X-Ray 06/09/16 0600 Signed Impressions: Service Date/Time: May 02:34 - CONCLUSION: Stable chest appearance. Ochoa Crow MD Abdomen X-Ray 06/09/16 0600 Signed Impressions: Service Date/Time: May 02:37 - CONCLUSION: Grossly benign postoperative abdomen appearance as above Ochoa Crow MD Administered Medications Medications (Trade) Dose Ordered Sig/Ambika Route PRN Reason Start Time Stop Time Status Last Admin Dose Admin Lactobacillus Acidophilus (Lactinex Pkt) 1 gm QID PO 06/01/16 13:00 06/09/16 13:30 IV Flush (NS Flush) 2 ml BID FLUSH 06/01/16 21:00 06/09/16 09:11 Acetaminophen 650 mg 650 mg Q4H PRN PO TEMP > 100.4 06/01/16 11:30 06/09/16 09:10 Daptomycin/Sodium Chloride (Cubicin Inj/NS Inj) 100 ml @ 200 mls/hr Q48H IV 06/01/16 20:00 06/07/16 20:21 Pantoprazole Sodium 40 mg 40 mg Q24H IV PUSH 06/01/16 17:00 06/07/16 17:09 Sodium Chloride/ Sodium Acetate/ Potassium Chloride/ Magnesium Chloride/Calcium Chloride/ Multivitamins/ Folic Acid/Amino Acids/Dextrose (Sodium Chloride 23.4% Inj/Sodium Acetate Inj/KCl Inj/Magnesium Chloride Inj/ Calcium Chloride Inj/Mvi-12 Inj/ Folvite Inj/ Clinimix 4.25/25) 1,042.1719 ml @ 42 mls/hr Q24H IV-CENTRAL 06/02/16 20:00 06/09/16 19:59 06/08/16 22:41 Hydromorphone HCl (Dilaudid Pf Inj) 1 mg Q4H PRN IV Pain 6-10;if unable to take PO 06/03/16 14:30 06/08/16 22:54 Hydromorphone HCl (Dilaudid Pf Inj) 1 mg Q4H PRN IV BREAKTHROUGH PAIN 06/03/16 14:30 06/09/16 03:43 Ondansetron HCl (Zofran Inj) 4 mg Q6H PRN IV PUSH nausea and vomiting 06/03/16 23:15 06/07/16 12:12 IV Flush (NS Flush) See Protocol DAILY IVF 06/07/16 09:00 06/09/16 09:10 Heparin Sodium (Porcine) See Protocol DAILY IVF 06/07/16 09:00 06/09/16 09:10 Cefazolin Sodium/ Dextrose 50 ml @ 100 mls/hr Q8H IV 06/08/16 17:00 06/09/16 09:11 Metronidazole (Flagyl 500 Mg Inj) 100 ml @ 100 mls/hr Q8H IV 06/08/16 16:30 06/09/16 09:11 Acetaminophen 650 mg 650 mg Q6H PRN RECTAL temp >100.6 06/08/16 16:30 06/09/16 13:31 Fluconazole/ Sodium Chloride (Diflucan 200 Mg Premix Bag) 100 ml @ 100 mls/hr Q24H IV 06/08/16 17:00 06/08/16 18:44 Heparin Sodium (Porcine) 100 units 100 units DAILY IV FLUSH 06/09/16 09:00 06/09/16 09:10 Lactated Ringer's 1,000 ml @ 125 mls/hr Q8H IV 06/08/16 16:30 06/09/16 09:12 Propofol 100 ml @ 0 mls/hr TITRATE IV 06/08/16 17:30 06/09/16 07:18 Phenylephrine HCl 40 mg/Dextrose 500 ml @ 0 mls/hr TITRATE IV 06/08/16 17:30 06/09/16 07:19 Fat Emulsion Intravenous 250 ml @ 31.25 mls/ hr Q24H IV-CENTRAL 06/08/16 20:00 06/08/16 22:41 Fentanyl Citrate 250 ml @ 0 mls/hr TITRATE IV 06/08/16 22:00 06/09/16 07:18 Gentamicin Sulfate/Sodium Chloride (Gentamicin 80 Mg Premix) 100 ml @ 200 mls/hr Q8H IV 06/09/16 15:00 06/09/16 15:18 Objective Remarks GENERAL: Intubated, sedated male. SKIN: Warm and dry. HEAD: Normocephalic. EYES: No scleral icterus. No injection or drainage. NECK: Supple, trachea midline. CARDIOVASCULAR: Regular rate and rhythm RESPIRATORY: Breath sounds equal bilaterally. No accessory muscle use. GASTROINTESTINAL: Abdomen soft, non-distended. multiple bandages in place, c/d/ i. EXTREMITIES: No cyanosis NEUROLOGICAL: intubated, sedated. Assessment/Plan Problem List: (1) Invasive carcinoma of urinary bladder Status: Acute Plan: 06/09/16: monitor hgb. await extubation s/p cystectomy 06/07/16: 3 units ordered by urology/pcp. will check H/H after blood transfused , order additional units if needed. 06/03/16: bone scan is negative, urology plans to proceed with palliative cystectomy next week. bilateral percutaneous nephrostomy tubes placed in IR today. Options of treatment discussed with family: Continued chemotherapy with XRT vs palliative surgery. If bone scan is negative would recommend palliative cystectomy. 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 + hydronephrosis to account for acute renal failure, noted new adenopathy concerning for progression vs. reactive given new UTI with margareth and staph epidermidis. Assessment 50 y/o man with locally advance, muscle invasive bladder cancer with recurrent hematuria complicated by acute renal failure and BL hydronephrosis. Now s/p bilateral percutaneous nephrostomy tube placement. Plan 1. monitor CBC, electrolytes 2. supportive care Jesika Wilkes Jun 09, 2016 16:08
[2016-06-09] MEDS: ONDANSETRON HCL 4 MG/2 ML VIAL IV PUSH PRN (16:22)
[2016-06-09] MEDS: CLINIMIX E 5/25 1000 mL- </= 42 mls/hr IV-CENTRAL SCH ×3 (17:57)
[2016-06-09 19:49] LABS: BACTERIA, URINE RARE /hpf; BLOOD, URINE LARGE (NEG); GLUCOSE,URINE NEG (NEG); KETONE, URINE NEG (NEG); NITRITE,URINE NEG (NEG); PH, URINE 6.5 (5.0-8.5); URINE COLOR YELLOW (YELLW/STRAW)
[2016-06-09 19:57] LABS: COMMENT (UR) CATH-CULTURE IND; CULTURE IF INDICATED CATH CULTURE IND
[2016-06-09] MEDS: DAPTOmycin INJ 320 MG in SODIUM CHLORIDE 0.9% INJ 100 ML IV SCH (21:06)
[2016-06-09] MEDS: FAT EMULSION 20% INJ 250 ML (Daily over 8 hours) IV-CENTRAL SCH (21:06)
[2016-06-10] VITALS (11 sets, daily range): BP systolic 109–140; BP diastolic 50–64; PULSE 102–123; RESP 14–22; TEMP 98.3–100.7; O2SAT 96–100
[2016-06-10] MEDS: ceFAZolin 2 GM PREMIX 50 ML IV SCH ×3 (02:56→17:31)
[2016-06-10] MEDS: RESP: ALBUTEROL 2.5 MG/IPRATROPIUM 0.5 MG NEB (SCH) INH ×4 (03:21→20:33)
[2016-06-10 05:42] LABS: HEMATOCRIT 21.5 % (39.0-51.0); MEAN CELL VOLUME 89.5 FL (80.0-100.0); MEAN CORPUSCULAR HEMOGLOBIN 31.9 PG (27.0-34.0); MEAN CORPUSCULAR HGB CONC 35.6 % (32.0-36.0); RED BLOOD COUNT 2.41 MIL/MM3 (4.50-5.90); RED CELL DISTRIBUTION WIDTH 16.5 % (11.6-17.2)
[2016-06-10 05:48] LABS: HEMO FLAGS AUTO DIFF; WHITE BLOOD COUNT 14.5 TH/MM3 (4.0-11.0)
[2016-06-10 05:49] LABS: PLATELET COUNT 171 TH/MM3 (150-450)
[2016-06-10] MEDS: INSULIN NovoLIN REGULAR SUPPLEMENTAL SCALE SQ SCH ×5 (06:00→23:13)
[2016-06-10] MEDS: LACTATED RINGER'S 1000 ML INJ 1,000 ML IV SCH (06:21)
[2016-06-10 06:29] LABS: ALKALINE PHOSPHATASE 61 U/L (45-117); ALT (GPT) 12 U/L (12-78); ANION GAP 6 MEQ/L (5-15); AST (GOT) 16 U/L (15-37); BICARBONATE 31.5 MEQ/L (21.0-32.0); BLOOD UREA NITROGEN 15 MG/DL (7-18); CHLORIDE 110 MEQ/L (98-107); GLOMERULAR FILTRATION RATE 54 ML/MIN (>89); MAGNESIUM 2.1 MG/DL (1.5-2.5); POTASSIUM 3.7 MEQ/L (3.5-5.1); SODIUM (NA) 147 MEQ/L (136-145); TOTAL BILIRUBIN ADULT 0.3 MG/DL (0.2-1.0)
[2016-06-10] MEDS: GENTAMICIN 80 MG PREMIX 100 ML IV SCH ×3 (07:18→23:13)
--- NOTE | 2016-06-10 07:39 | HHI.PR ---
Subjective Remarks Pt seen and examined. Some pain at present. Pt is at baseline mentally. No events last PM. Objective Vital Signs Vital Signs Date Time Temp Pulse Resp B/P Pulse Ox O2 Delivery O2 Flow Rate FiO2 06/10/16 06:00 106 06/10/16 04:00 100.0 108 14 121/58 99 06/10/16 04:00 102 06/10/16 02:00 104 06/10/16 00:00 100.7 110 19 121/56 97 06/10/16 00:00 108 06/09/16 22:00 107 06/09/16 21:02 98 Nasal Cannula 3.00 06/09/16 20:00 110 06/09/16 20:00 99.0 110 17 125/63 100 06/09/16 18:00 115 06/09/16 16:00 98.3 123 24 123/70 99 06/09/16 16:00 123 06/09/16 14:00 95 Nasal Cannula 3 06/09/16 14:00 99 Nasal Cannula 3.00 06/09/16 14:00 95 Nasal Cannula 3.00 06/09/16 14:00 121 06/09/16 12:00 101.9 123 15 128/60 98 06/09/16 12:00 123 06/09/16 10:00 116 06/09/16 09:44 96 30 06/09/16 08:00 101.1 112 13 118/64 100 06/09/16 08:00 112 I/O 06/09/16 06/09/16 06/09/16 06/10/16 06/10/16 06/10/16 07:00 15:00 23:00 07:00 15:00 23:00 Intake Total 2109 ml 1662 ml 1412 ml 1292 ml Output Total 1100 ml 1410 ml 3160 ml 2180 ml Balance 1009 ml 252 ml -1748 ml -888 ml IV Total 1560 ml 1324 ml 1072 ml 778 ml TPN/PPN 315 ml 338 ml 340 ml 302 ml Lipid 234 ml 212 ml Gastric Drainage Total 75 ml 75 ml Drainage Total 1025 ml 1410 ml 3160 ml 2105 ml # Bowel Movements 0 0 0 0 Result Diagram: 06/10/16 0430 06/10/16 0600 Objective Remarks Abd:soft,some tenderness, ND Zuniga now with clear urine 06/03 Abd:soft,nd, mild tenderness Zuniga: rahul urine 06/06 Abd:soft, tender on exam Urine: dark blood PCNT's both with bloody urine 06/07 Abd:soft,tender on exam Zuniga irrigated at bedside; pink color PCNT's with bloody urine Ext: neg 06/08 CV: sinus tach Lungs: BS bilaterally Abd:soft, slight distension, NT Stoma: pink and viable; urine rahul B/L PCNT's: rahul urine Pelvic drain: bloody; minimal output Ext: 2+ edema 06/10 CV: sinus tach Lungs: BS bilaterally Abd: Distended, tender with palpation Stoma: pink and viable with clear urine B/L PNCT's with clear urine Ext: 2+ edema Assessment and Plan Assessment and Plan 50 y.o male with muscle invasive bladder cancer with evidence of worsening adenopathy and hydronephrosis. Bone scan to r/o ronald metastasis. IR consult to place bilateral nephrostomy tubes to help improve renal function Options of treatment discussed with family: Continued chemotherapy with XRT vs palliative surgery. If bone scan is negative would recommend palliative cystectomy. 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 Will need to correct anemia/thrombocytopenia and need to improve nutritional status. Will start TPN. Albumin is 2.4 at present. Hope to perform cystectomy next week. 06/03 50 y.o male with muscle invasive bladder cancer with evidence of worsening adenopathy and hydronephrosis. Bone scan negative for ronald metastasis. For bilateral PCNT's today Continue TPN For PICC line placement in near future 06/06 50 y.o male with muscle invasive bladder cancer For 2 more units of PRBC;s today PICC line today Replace K+ Continue TPN OR on Monday if Hgb at 10 or above 06/07 50 y.o male with muscle invasive bladder cancer 2 more units of PRBC's today for Hgb 7.9 Replace K OR in AM 06/08 Stable s/p Radical cystoprostatectomy with b/l PLND and ileal conduit creation Extubate today Ween of pressors as pt tolerates Continue TPN OOB tomorrow to chair if extubated 06/10 Stable s/p Radical Cystoprostatectomy with b/l PLND and ileal conduit POD#2 OOB to chair 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
[2016-06-10] MEDS: 1/2 NS + KCL 20 MEQ INJ 1,000 ML IV SCH (08:01)
--- NOTE | 2016-06-10 08:17 | HHI.CCPN ---
Subjective Remarks/Hospital Course Is a 50-year-old male with a history of neurogenic bladder who was recently diagnosed with new locally advanced muscle invasive bladder cancer who underwent neoadjuvant chemotherapy and is now postop day 0 status post open radical cystectomy. His intraoperative course was complicated by a 4 L EBL with massive resuscitation. He was left intubated for concerns over fluid shifts. I evaluated the patient in the PACU. He was still intubated and sedated. He cannot participate in a history. He was on phenylephrine infusion at 50 mics per minute. Critical-care medicine is consulted to evaluate and manage his postresuscitation and postoperative care. 06/09: Good gas exchange. Well perfused. Urine output acceptable. 06/10: Acceptable urine output. Anemia, will transfuse. Breathing without complaints aside from considerable pain. Objective Vital Signs Date Time Temp Pulse Resp B/P Pulse Ox O2 Delivery O2 Flow Rate FiO2 06/10/16 07:59 96 Nasal Cannula 2.00 06/10/16 06:00 106 06/10/16 04:00 100.0 14 121/58 06/09/16 09:44 30 Intake and Output 06/09/16 06/09/16 06/10/16 08:00 16:00 00:00 Intake Total 2109 ml 1662 ml 1412 ml Output Total 1100 ml 1410 ml 3160 ml Balance 1009 ml 252 ml -1748 ml Result Diagram: 06/10/16 0430 06/10/16 0600 Objective Remarks GENERAL: Middle-aged male, HEENT: Normocephalic. Atraumatic. NECK: Airway widely patent. CHEST: Clear to auscultation. Weak cough. CARDIOVASCULAR: Normal rate, regular rhythm. No JVD. ABDOMEN: Midline incision is clean and dry. Urostomy tubes with clear yellow urine. There is a Zuniga catheter that exits the penis that per report is a pelvic drain to traction. Has minimal output. MUSCULOSKELETAL: No peripheral edema. Distal pulses 2+. Warm, well perfused. NEUROLOGICAL: Moves 4 limbs with strength. Follows commands. O X 3. 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 Respiratory: Postoperative pulmonary insufficiency Vent bundle Head of bed at 30 Low tidal by ventilation training 6 cc/kg ideal body weight Wean FiO2 for goal SPO2 greater than 90% Does not meet SBT criteria tonight given massive transfusion Nebs every 6 and every 2 when necessary -Extubated Cardiovascular: Hypovolemic shock Resolving. Continue phenylephrine for goal map greater than 65 Continue maintenance fluids at 125 an hour -Resolved. -Transfuse 1 units. Renal: Acute on chronic kidney injury Status post radical cystectomy Continue strict I's and O's with monitoring from nephrostomy tube Zuniga catheter which exits the penis is actually a pelvic drain. Continue this to traction. -- Strict I/Os FEN/GI: Acute protein calorie malnutritionmild Intravascular hypovolemia Continue maintenance fluids as above Nothing by mouth ICU electrolyte protocol Daily BMP Heme/ID: Anemia acute blood loss Perioperative antibiotics per surgeon Does not meet transfusion trigger at this time Goal hemoglobin greater than 7 Daily CBC Follow-up postop coags and CBC Endocrine: Hyperglycemia of critical illness -- SSI, every 6 hours, medium scale Prophylaxis: GI Prophylaxis Protonix 40 mg IV q 24 hours DVT Prophylaxis -- SCDs Holding pharmacologic DVT prophylaxis in the setting of recent massive hemorrhage Lines: Left arm PICC line Right subclavian port Right radial arterial line Overall impression: Good progress s/p major urological procedure. Pain control is major issue. Jimi Taylor MD Jun 10, 2016 08:17
[2016-06-10 08:19] LABS: BASOPHILS 1 % (0-2); EOSINOPHILS 2 % (0-4); NEUTROPHIL # MANUAL DIFF 11.7 TH/MM3 (1.8-7.7); POLYS (SEG NEUTROPHILS) 81 % (16-70); WBC DIFF SAMPLE 100
[2016-06-10 08:20] LABS: PLATELET ESTIMATE SMEAR NORMAL (NORMAL); PLATELET MORPHOLOGY NORMAL (NORMAL); SCAN/DIFF FINAL DIFF MANUAL
[2016-06-10] MEDS: HYDROmorphone HCL PF 1 MG/ML VIAL IV PRN (08:36)
[2016-06-10] MEDS: LACTOBACILLUS ACIDOPHILUS 1 GM PACKET PO SCH ×4 (08:53→20:57)
[2016-06-10] MEDS: metroNIDAZOLE 500 MG INJ 100 ML IV SCH ×2 (08:54→17:32)
[2016-06-10] MEDS: PHYTONADIONE 100 MCG PO SCH (09:00)
[2016-06-10] MEDS ORDERED: NALOXONE HCL 0.4 MG/ML AMP IV PRN (09:45)
[2016-06-10] MEDS ORDERED: diphenhydrAMINE HCL 50 MG/ML VIAL IV PUSH PRN (09:45)
[2016-06-10] MEDS: HYDROmorphone HCL PCA 6 MG/30 ML IV SCH ×3 (10:25→18:45)
[2016-06-10] MEDS: SODIUM CHLORIDE 0.9% FLUSH 5 ML FLUSH FLUSH SCH ×2 (10:30→20:58)
--- NOTE | 2016-06-10 10:40 | PD.ONC.PN ---
Subjective Subjective Remarks Tmax 101.9 overnight. Patient extubated. c/o pain in abdomen. Remains on fentanyl drip until dilaudid environmental field services technician can be set up. Off pressor support. Objective Data Date Time Temp Pulse Resp B/P Pulse Ox O2 Delivery O2 Flow Rate FiO2 06/10/16 10:25 18 06/10/16 07:59 96 Nasal Cannula 2.00 06/10/16 06:00 106 06/10/16 04:00 100.0 108 14 121/58 99 06/10/16 04:00 102 06/10/16 02:00 104 06/10/16 00:00 100.7 110 19 121/56 97 06/10/16 00:00 108 06/09/16 22:00 107 06/09/16 21:02 98 Nasal Cannula 3.00 06/09/16 20:00 110 06/09/16 20:00 99.0 110 17 125/63 100 06/09/16 18:00 115 06/09/16 16:00 98.3 123 24 123/70 99 06/09/16 16:00 123 06/09/16 14:00 95 Nasal Cannula 3 06/09/16 14:00 99 Nasal Cannula 3.00 06/09/16 14:00 95 Nasal Cannula 3.00 06/09/16 14:00 121 06/09/16 12:00 101.9 123 15 128/60 98 06/09/16 12:00 123 06/10/16 06/10/16 06/10/16 07:00 15:00 23:00 Intake Total 1292 ml Output Total 2180 ml Balance -888 ml Result Diagram: 06/10/16 0430 06/10/16 0600 Laboratory Results Laboratory Tests Test 06/09/16 06/10/16 06/10/16 19:30 04:30 06:00 Urine Color YELLOW Urine Turbidity CLEAR Urine pH 6.5 Urine Specific [place] 1.005 Urine Protein 30 mg/dL Urine Glucose (UA) NEG mg/dL Urine Ketones NEG mg/dL Urine Occult Blood LARGE Urine Nitrite NEG Urine Bilirubin NEG Urine Urobilinogen LESS THAN 2.0 MG/DL Urine Leukocyte Esterase MOD Urine RBC 24 /hpf Urine WBC 19 /hpf Urine Bacteria RARE /hpf Microscopic Urinalysis Comment CATH-CULTURE IND White Blood Count 14.5 TH/MM3 Red Blood Count 2.41 MIL/MM3 Hemoglobin 7.7 GM/DL Hematocrit 21.5 % Mean Corpuscular Volume 89.5 FL Mean Corpuscular Hemoglobin 31.9 PG Mean Corpuscular Hemoglobin 35.6 % Concent Red Cell Distribution Width 16.5 % Platelet Count 171 TH/MM3 Mean Platelet Volume 9.0 FL Neutrophils (%) (Auto) % Lymphocytes (%) (Auto) % Monocytes (%) (Auto) % Eosinophils (%) (Auto) % Basophils (%) (Auto) % Neutrophils # (Auto) TH/MM3 Lymphocytes # (Auto) TH/MM3 Monocytes # (Auto) TH/MM3 Eosinophils # (Auto) TH/MM3 Basophils # (Auto) TH/MM3 CBC Comment AUTO DIFF Differential Total Cells 100 Counted Neutrophils % (Manual) 81 % Lymphocytes % 11 % Monocytes % 5 % Eosinophils % 2 % Basophils % 1 % Neutrophils # (Manual) 11.7 TH/MM3 Differential Comment FINAL DIFF MANUAL Platelet Estimate NORMAL Platelet Morphology Comment NORMAL Hematology Comments Sodium Level 147 MEQ/L Potassium Level 3.7 MEQ/L Chloride Level 110 MEQ/L Carbon Dioxide Level 31.5 MEQ/L Anion Gap 6 MEQ/L Blood Urea Nitrogen 15 MG/DL Creatinine 1.40 MG/DL Estimat Glomerular Filtration 54 ML/MIN Rate Random Glucose 149 MG/DL Calcium Level 7.6 MG/DL Phosphorus Level 4.4 MG/DL Magnesium Level 2.1 MG/DL Total Bilirubin 0.3 MG/DL Aspartate Amino Transf 16 U/L (AST/SGOT) Alanine Aminotransferase 12 U/L (ALT/SGPT) Alkaline Phosphatase 61 U/L Total Protein 4.7 GM/DL Albumin 1.8 GM/DL Culture Results Microbiology Date/Time Procedure Status Source Growth 06/09/16 16:27 Aerobic Blood Culture Received Blood Peripheral Pending 06/09/16 16:27 Anaerobic Blood Culture Received Blood Peripheral Pending 06/09/16 16:27 Aerobic Blood Culture Received Blood Peripheral Pending 06/09/16 16:27 Anaerobic Blood Culture Received Blood Peripheral Pending 06/09/16 19:30 Urine Culture Received Urine Catheterized Urine Pending Administered Medications Medications (Trade) Dose Ordered Sig/Ambika Route PRN Reason Start Time Stop Time Status Last Admin Dose Admin Lactobacillus Acidophilus (Lactinex Pkt) 1 gm QID PO 06/01/16 13:00 06/10/16 08:53 IV Flush (NS Flush) 2 ml BID FLUSH 06/01/16 21:00 06/09/16 23:49 Acetaminophen 650 mg 650 mg Q4H PRN PO TEMP > 100.4 06/01/16 11:30 06/09/16 09:10 Daptomycin/Sodium Chloride (Cubicin Inj/NS Inj) 100 ml @ 200 mls/hr Q48H IV 06/01/16 20:00 06/09/16 21:06 Pantoprazole Sodium (Protonix Inj) 40 mg Q24H IV PUSH 06/01/16 17:00 06/09/16 16:06 Hydromorphone HCl (Dilaudid Pf Inj) 1 mg Q4H PRN IV Pain 6-10;if unable to take PO 06/03/16 14:30 06/10/16 08:36 Hydromorphone HCl (Dilaudid Pf Inj) 1 mg Q4H PRN IV BREAKTHROUGH PAIN 06/03/16 14:30 06/09/16 03:43 Ondansetron HCl (Zofran Inj) 4 mg Q6H PRN IV PUSH nausea and vomiting 06/03/16 23:15 06/09/16 16:22 IV Flush (NS Flush) See Protocol DAILY IVF 06/07/16 09:00 06/09/16 09:10 Heparin Sodium (Porcine) See Protocol DAILY IVF 06/07/16 09:00 06/09/16 09:10 Cefazolin Sodium/ Dextrose 50 ml @ 100 mls/hr Q8H IV 06/08/16 17:00 06/10/16 08:54 Metronidazole (Flagyl 500 Mg Inj) 100 ml @ 100 mls/hr Q8H IV 06/08/16 16:30 06/10/16 08:54 Acetaminophen 650 mg 650 mg Q6H PRN RECTAL temp >100.6 06/08/16 16:30 06/09/16 13:31 Fluconazole/ Sodium Chloride (Diflucan 200 Mg Premix Bag) 100 ml @ 100 mls/hr Q24H IV 06/08/16 17:00 06/09/16 16:05 Heparin Sodium (Porcine) 100 units 100 units DAILY IV FLUSH 06/09/16 09:00 06/09/16 09:10 Propofol 100 ml @ 0 mls/hr TITRATE IV 06/08/16 17:30 06/09/16 07:18 Phenylephrine HCl 40 mg/Dextrose 500 ml @ 0 mls/hr TITRATE IV 06/08/16 17:30 06/09/16 07:19 Fat Emulsion Intravenous 250 ml @ 31.25 mls/ hr Q24H IV-CENTRAL 06/08/16 20:00 06/09/16 21:06 Fentanyl Citrate (fentaNYL DRIP) 250 ml @ 0 mls/hr TITRATE IV 06/08/16 22:00 06/09/16 23:48 Insulin Human Regular 1 1 Q6HR SQ 06/09/16 06:00 06/09/16 17:57 Multivitamins 10 ml/Folic Acid 1 mg/Amino Acids/ Electrolytes/ Dextrose 1,010.2 ml @ 42 mls/hr Q24H IV-CENTRAL 06/09/16 20:00 06/09/16 17:57 Gentamicin Sulfate/Sodium Chloride 100 ml @ 200 mls/hr Q8H IV 06/09/16 15:00 06/10/16 07:18 Potassium Chloride/Sodium Chloride (1/2 NS + KCl 20 Meq Inj) 1,000 ml @ 50 mls/hr Q20H IV 06/10/16 07:15 06/10/16 08:01 Hydromorphone HCl (Dilaudid DIRECTOR OF LEADERSHIP DEVELOPMENT Inj) 6 mg UNSCH IV 06/10/16 09:45 06/10/16 10:25 Objective Remarks GENERAL: Middle aged male, lying in bed, somewhat diaphoretic, c/o pain in abdomen. SKIN: Warm and dry. HEAD: Normocephalic. EYES: No scleral icterus. No injection or drainage. NECK: Supple, trachea midline. CARDIOVASCULAR: Regular rate and rhythm RESPIRATORY: Breath sounds equal bilaterally. No accessory muscle use. GASTROINTESTINAL: Abdomen soft, non-distended. bandages are clean. ttp throughout. + guarding. EXTREMITIES: No cyanosis NEUROLOGICAL: awake and alert, normal speech. Assessment/Plan Problem List: (1) Invasive carcinoma of urinary bladder Status: Acute Plan: 06/10/16: hgb=7.7. patient will likely need transfusion, but will defer to cruise director. will check H/H this afternoon. 06/09/16: monitor hgb. await extubation s/p cystectomy 06/07/16: 3 units ordered by urology/pcp. will check H/H after blood transfused , order additional units if needed. 06/03/16: bone scan is negative, urology plans to proceed with palliative cystectomy next week. bilateral percutaneous nephrostomy tubes placed in IR today. Options of treatment discussed with family: Continued chemotherapy with XRT vs palliative surgery. If bone scan is negative would recommend palliative cystectomy. Pt understands this is not curative but termite technician it would reduce readmissions and improve quality of life for now. + hydronephrosis to account for acute renal failure, noted new adenopathy concerning for progression vs. reactive given new UTI with margareth and staph epidermidis. Assessment 50 y/o man with locally advance, muscle invasive bladder cancer with recurrent hematuria complicated by acute renal failure and BL hydronephrosis. Now s/p bilateral percutaneous nephrostomy tube placement. Plan 1. monitor CBC, electrolytes 2. supportive care Attending Statement The exam, history, and the medical decision-making described in the above note were completed with the assistance of the mid-level provider. I reviewed and agree with the findings presented. I attest that I had a [id number] encounter with the patient on the same day, and personally performed and documented my assessment and findings in the medical record. Pt seen and examined. Wound w/ dry dressing. Pain controlled. Follow up pathology report and plan for adjuvant treatment post recovery. Jesika Wilkes Jun 10, 2016 10:40 Idalia Lee MD Jun 10, 2016 20:58
--- NOTE | 2016-06-10 12:01 | HHI.IDPN ---
Note Infectious Disease Note Notes reviewed. Patient is day 2 post radical cystectomy. Extubated. Using SOLID PLASTERER pump for pain. Afebrile. New urine culture sent. This is a 50-year-old white male who was diagnosed with bladder carcinoma. The patient was noted to have locally advanced muscle invasive bladder cancer and he has been undergoing perioperative chemotherapy. He was discharged from the hospital recently with antibiotic treatment for UTI. He developed intractable bladder pain along with nausea and vomiting and was sent back to the emergency department for evaluation. PAST MEDICAL HISTORY 1. Hypertension, 2. Neurogenic bladder 3. History of spinal tumor of 20 years ago 4. Status post resection of bladder carcinoma diagnosed in January 2016 ALLERGIES NO KNOWN DRUG ALLERGIES. Current Medications Medications (Trade) Dose Ordered Sig/Ambika Route PRN Reason Start Time Stop Time Status Last Admin Dose Admin Lactobacillus Acidophilus (Lactinex Pkt) 1 gm QID PO 06/01/16 13:00 06/10/16 08:53 IV Flush (NS Flush) 2 ml UNSCH PRN FLUSH FLUSH AFTER USING IV ACCESS 06/01/16 11:30 IV Flush (NS Flush) 2 ml BID FLUSH 06/01/16 21:00 06/10/16 10:30 Acetaminophen (Tylenol) 650 mg Q4H PRN PO TEMP > 100.4 06/01/16 11:30 06/09/16 09:10 Bisacodyl (Dulcolax Supp) 10 mg DAILY PRN [place] CONSTIPATION 06/01/16 11:30 Magnesium Hydroxide (Milk Of Magnesia Liq) 30 ml Q12H PRN PO CONSTIPATION 06/01/16 11:30 Sennosides 17.2 mg 17.2 mg Q12H PRN PO CONSTIPATION 06/01/16 11:30 Daptomycin/Sodium Chloride (Cubicin Inj/NS Inj) 100 ml @ 200 mls/hr Q48H IV 06/01/16 20:00 06/09/16 21:06 Pantoprazole Sodium (Protonix Inj) 40 mg Q24H IV PUSH 06/01/16 17:00 06/09/16 16:06 Hydromorphone HCl (Dilaudid Pf Inj) 0.5 mg Q4H PRN IV Pain 3-5; if unable to take PO 06/03/16 14:30 Hydromorphone HCl (Dilaudid Pf Inj) 1 mg Q4H PRN IV Pain 6-10;if unable to take PO 06/03/16 14:30 06/10/16 08:36 Hydromorphone HCl (Dilaudid Pf Inj) 1 mg Q4H PRN IV BREAKTHROUGH PAIN 06/03/16 14:30 06/09/16 03:43 Patient Own Medication 1 ea DAILY PO 06/04/16 09:00 Ondansetron HCl (Zofran Inj) 4 mg Q6H PRN IV PUSH nausea and vomiting 06/03/16 23:15 06/09/16 16:22 IV Flush (NS Flush) See Protocol DAILY IVF 06/07/16 09:00 06/09/16 09:10 IV Flush (NS Flush) See Protocol UNSCH PRN IVF SEE PROTOCOL TABLE 06/06/16 16:15 Heparin Sodium (Porcine) (Heparin Central Flush) See Protocol DAILY IVF 06/07/16 09:00 06/09/16 09:10 Heparin Sodium (Porcine) (Heparin Central Flush) See Protocol UNSCH PRN IVF SEE PROTOCOL TABLE 06/06/16 16:15 IV Flush See Protocol UNSCH PRN IVF SEE PROTOCOL TABLE 06/06/16 16:15 Cefazolin Sodium/ Dextrose 50 ml @ 100 mls/hr Q8H IV 06/08/16 17:00 06/10/16 08:54 Metronidazole (Flagyl 500 Mg Inj) 100 ml @ 100 mls/hr Q8H IV 06/08/16 16:30 06/10/16 08:54 Acetaminophen 650 mg 650 mg Q6H PRN RECTAL temp >100.6 06/08/16 16:30 06/09/16 13:31 Fluconazole/ Sodium Chloride (Diflucan 200 Mg Premix Bag) 100 ml @ 100 mls/hr Q24H IV 06/08/16 17:00 06/09/16 16:05 Heparin Sodium (Porcine) 100 units 100 units DAILY IV FLUSH 06/09/16 09:00 06/09/16 09:10 Propofol 100 ml @ 0 mls/hr TITRATE IV 06/08/16 17:30 06/09/16 07:18 Phenylephrine HCl/ Dextrose (Neosynephrine Inj/D5W 500 ml Inj) 500 ml @ 0 mls/hr TITRATE IV 06/08/16 17:30 06/09/16 07:19 Terbutaline Sulfate (Brethine Inj) 1 mg UNSCH PRN SQ FOR EXTRAVASATION PROTOCOL 06/08/16 17:30 Naloxone HCl 0.4 mg 0.4 mg UNSCH PRN IV RESPIRATORY RATE LESS THAN 10 06/08/16 17:45 Fat Emulsion Intravenous 250 ml @ 31.25 mls/ hr Q24H IV-CENTRAL 06/08/16 20:00 06/09/16 21:06 Fentanyl Citrate (fentaNYL DRIP) 250 ml @ 0 mls/hr TITRATE IV 06/08/16 22:00 06/09/16 23:48 Magnesium Oxide 800 mg 800 mg UNSCH PRN PO For Magnesium 1.2 - 1.6 mg/dL 06/09/16 01:30 Magnesium Sulfate 4 gm/Sodium Chloride 100 ml @ 50 mls/hr UNSCH PRN IV For Magnesium 0.9 - 1.1 mg/dL 06/09/16 01:30 Magnesium Sulfate 2 gm/Sodium Chloride 100 ml @ 50 mls/hr UNSCH PRN IV For Magnesium 1.2 - 1.6 mg/dL 06/09/16 01:30 Potassium Chloride 100 ml @ 50 mls/hr Q2H PRN IV For Potassium 2.8 - 3.2 mEq/L 06/09/16 01:30 Potassium Chloride 100 ml @ 50 mls/hr Q2H PRN IV For Potassium 3.3 - 3.5 mEq/L 06/09/16 01:30 Potassium Chloride 100 ml @ 50 mls/hr Q2H PRN IV For Potassium 2.8 - 3.2 mEq/L 06/09/16 01:30 Potassium Chloride (KCl 40 Meq Premix Inj) 100 ml @ 25 mls/hr UNSCH PRN IV For Potassium 3.3 - 3.5 mEq/L 06/09/16 01:30 Potassium Chloride (KCl 40 Meq/30 ml Liq) 40 meq UNSCH PRN PO/TUBE For Potassium 3.3 - 3.5 mEq/L 06/09/16 01:30 Potassium Chloride (KCl 40 Meq/30 ml Liq) 40 meq UNSCH PRN PO/TUBE SEE LABEL COMMENTS 06/09/16 01:30 Potassium Phosphate (K-Phos) 2,000 mg Q4H PRN PO For Phosphorus < 2.5 mg/dL 06/09/16 01:30 Potassium Phosphate 2000 mg 2,000 mg UNSCH PRN PO/TUBE SEE LABEL COMMENTS 06/09/16 01:30 Potassium Phosphate 30 mmol/ Sodium Chloride 260 ml @ 42 mls/hr UNSCH PRN IV SEE LABEL COMMENTS 06/09/16 01:30 Sodium Phosphate/ Sodium Chloride (Sodium Phosphate Inj/NS 250 ml Inj) 250 ml @ 42 mls/hr UNSCH PRN IV For Phosphorus < 2.5 mg/dL 06/09/16 01:30 Dextrose (D50w (Vial) Inj) 25 ml UNSCH PRN IV PUSH HYPOGLYCEMIA-SEE COMMENTS 06/09/16 01:30 Insulin Human Regular 1 1 Q6HR SQ 06/09/16 06:00 06/09/16 17:57 Multivitamins 10 ml/Folic Acid 1 mg/Amino Acids/ Electrolytes/ Dextrose 1,010.2 ml @ 42 mls/hr Q24H IV-CENTRAL 06/09/16 20:00 06/09/16 17:57 Gentamicin Sulfate/Sodium Chloride 100 ml @ 200 mls/hr Q8H IV 06/09/16 15:00 06/10/16 07:18 Potassium Chloride/Sodium Chloride (1/2 NS + KCl 20 Meq Inj) 1,000 ml @ 50 mls/hr Q20H IV 06/10/16 07:15 06/10/16 08:01 Hydromorphone HCl (Dilaudid SOLID PLASTERER Inj) 6 mg UNSCH IV 06/10/16 09:45 06/10/16 10:25 SOLID PLASTERER Dosage Infused (Pha) 1 Q8HR .XX 06/10/16 14:00 Naloxone HCl (Narcan Inj) 0.4 mg UNSCH PRN IV RESPIRATORY RATE LESS THAN 10 06/10/16 09:45 Diphenhydramine HCl (Benadryl Inj) 25 mg Q6H PRN IV PUSH ITCHING 06/10/16 09:45 SOCIAL HISTORY No tobacco or alcohol. No illicit drugs. FAMILY HISTORY Lymphoma in the patient's father. REVIEW OF SYSTEMS Pertinent as mentioned in history of present illness. OBJECTIVE: Vital Signs Date Time Temp Pulse Resp B/P Pulse Ox O2 Delivery O2 Flow Rate FiO2 06/10/16 10:55 16 06/10/16 10:25 18 06/10/16 09:06 18 06/10/16 09:00 98 Nasal Cannula 3.00 06/10/16 09:00 123 06/10/16 09:00 98.3 123 18 140/64 98 Arterial Line 06/10/16 07:59 96 Nasal Cannula 2.00 06/10/16 06:00 106 06/10/16 04:00 100.0 108 14 121/58 99 06/10/16 04:00 102 06/10/16 02:00 104 06/10/16 00:00 100.7 110 19 121/56 97 06/10/16 00:00 108 06/09/16 22:00 107 06/09/16 21:02 98 Nasal Cannula 3.00 06/09/16 20:00 110 06/09/16 20:00 99.0 110 17 125/63 100 06/09/16 18:00 115 06/09/16 16:00 98.3 123 24 123/70 99 06/09/16 16:00 123 06/09/16 14:00 95 Nasal Cannula 3 06/09/16 14:00 99 Nasal Cannula 3.00 06/09/16 14:00 95 Nasal Cannula 3.00 06/09/16 14:00 121 06/09/16 12:00 101.9 123 15 128/60 98 06/09/16 12:00 123 06/09/16 06/09/16 06/10/16 15:00 23:00 07:00 Intake Total 1662 ml 1412 ml 1292 ml Output Total 1410 ml 3160 ml 2180 ml Balance 252 ml -1748 ml -888 ml IV Total 1324 ml 1072 ml 778 ml TPN/PPN 338 ml 340 ml 302 ml Lipid 212 ml Gastric Drainage Total 75 ml Drainage Total 1410 ml 3160 ml 2105 ml # Bowel Movements 0 0 0 Laboratory Tests Test 06/08/16 06/08/16 06/09/16 06/10/16 17:00 21:32 05:25 04:30 White Blood Count 17.4 TH/MM3 17.0 TH/MM3 14.3 TH/MM3 14.5 TH/MM3 Red Blood Count 3.46 MIL/MM3 3.40 MIL/MM3 3.01 MIL/MM3 2.41 MIL/MM3 Hemoglobin 10.2 GM/DL 9.8 GM/DL 8.9 GM/DL 7.7 GM/DL Hematocrit 29.4 % 28.5 % 25.3 % 21.5 % Mean Corpuscular Volume 84.9 FL 83.9 FL 84.3 FL 89.5 FL Mean Corpuscular Hemoglobin 29.4 PG 28.9 PG 29.6 PG 31.9 PG Mean Corpuscular Hemoglobin 34.6 % 34.5 % 35.2 % 35.6 % Concent Red Cell Distribution Width 15.2 % 15.2 % 15.9 % 16.5 % Platelet Count 192 TH/MM3 206 TH/MM3 188 TH/MM3 171 TH/MM3 Mean Platelet Volume 7.4 FL 7.8 FL 7.9 FL 9.0 FL Neutrophils (%) (Auto) 75.3 % 66.8 % % Lymphocytes (%) (Auto) 15.0 % 20.6 % % Monocytes (%) (Auto) 9.2 % 11.1 % % Eosinophils (%) (Auto) 0.1 % 0.6 % % Basophils (%) (Auto) 0.4 % 0.9 % % Neutrophils # (Auto) 12.8 TH/MM3 9.6 TH/MM3 TH/MM3 Lymphocytes # (Auto) 2.6 TH/MM3 3.0 TH/MM3 TH/MM3 Monocytes # (Auto) 1.6 TH/MM3 1.6 TH/MM3 TH/MM3 Eosinophils # (Auto) 0.0 TH/MM3 0.1 TH/MM3 TH/MM3 Basophils # (Auto) 0.1 TH/MM3 0.1 TH/MM3 TH/MM3 CBC Comment DIFF FINAL DIFF FINAL AUTO DIFF Differential Comment FINAL DIFF MANUAL Differential Total Cells 100 Counted Neutrophils % (Manual) 81 % Lymphocytes % 11 % Monocytes % 5 % Eosinophils % 2 % Basophils % 1 % Neutrophils # (Manual) 11.7 TH/MM3 Platelet Estimate NORMAL Platelet Morphology Comment NORMAL Hematology Comments Laboratory Tests Test 06/08/16 06/08/16 06/09/16 06/10/16 17:00 21:32 05:25 06:00 Sodium Level 142 MEQ/L 142 MEQ/L 139 MEQ/L 147 MEQ/L Potassium Level 4.6 MEQ/L 4.4 MEQ/L 3.9 MEQ/L 3.7 MEQ/L Chloride Level 105 MEQ/L 105 MEQ/L 104 MEQ/L 110 MEQ/L Carbon Dioxide Level 26.0 MEQ/L 28.3 MEQ/L 24.8 MEQ/L 31.5 MEQ/L Anion Gap 11 MEQ/L 9 MEQ/L 10 MEQ/L 6 MEQ/L Blood Urea Nitrogen 15 MG/DL 15 MG/DL 15 MG/DL 15 MG/DL Creatinine 1.36 MG/DL 1.37 MG/DL 1.34 MG/DL 1.40 MG/DL Estimat Glomerular Filtration 56 ML/MIN 55 ML/MIN 57 ML/MIN 54 ML/MIN Rate Random Glucose 142 MG/DL 127 MG/DL 138 MG/DL 149 MG/DL Calcium Level 7.4 MG/DL 7.5 MG/DL 7.3 MG/DL 7.6 MG/DL Protein Corrected Calcium 8.8 MG/DL 8.7 MG/DL Total Bilirubin 1.7 MG/DL 0.4 MG/DL 0.3 MG/DL Aspartate Amino Transf 17 U/L 18 U/L 16 U/L (AST/SGOT) Alanine Aminotransferase 22 U/L 20 U/L 12 U/L (ALT/SGPT) Alkaline Phosphatase 52 U/L 52 U/L 61 U/L Total Protein 4.6 GM/DL 4.6 GM/DL 4.7 GM/DL Albumin 2.4 GM/DL 2.0 GM/DL 1.8 GM/DL Phosphorus Level 3.6 MG/DL 4.4 MG/DL Magnesium Level 1.8 MG/DL 2.1 MG/DL Triglycerides Level 141 MG/DL Microbiology Date/Time Procedure Status Source Growth 06/09/16 16:27 Aerobic Blood Culture - Preliminary Resulted Blood Peripheral NO GROWTH IN 1 DAY 06/09/16 16:27 Anaerobic Blood Culture - Preliminary Resulted Blood Peripheral NO GROWTH IN 1 DAY 06/09/16 16:27 Aerobic Blood Culture - Preliminary Resulted Blood Peripheral NO GROWTH IN 1 DAY 06/09/16 16:27 Anaerobic Blood Culture - Preliminary Resulted Blood Peripheral NO GROWTH IN 1 DAY 06/09/16 19:30 Urine Culture Received Urine Catheterized Urine Pending IMAGING: Chest X-Ray 06/09/16 0600 Signed Impressions: Service Date/Time: May 02:34 - CONCLUSION: Stable chest appearance. Ochoa Crow MD Abdomen X-Ray 06/09/16 0600 Signed Impressions: Service Date/Time: May 02:37 - CONCLUSION: Grossly benign postoperative abdomen appearance as above Ochoa Crow MD Chest X-Ray 06/08/16 0000 Signed Impressions: Service Date/Time: Wednesday, June 08, 2016 21:36 - CONCLUSION: 1. Endotracheal tube 8.5 cm above the skyler. 2. Clear lungs. Scar Prasad MD Abdomen X-Ray 06/08/16 0000 Signed Impressions: Service Date/Time: Wednesday, June 08, 2016 15:52 - CONCLUSION: Postop abdomen. Rufino Canchola MD Chest X-Ray 06/04/16 0347 Signed Impressions: Service Date/Time: Saturday, June 04, 2016 03:48 - CONCLUSION: No acute cardiopulmonary disease. Abdullahi Dos Santos MD Lower Extremity Ultrasound 06/01/16 0000 Signed Impressions: Service Date/Time: Wednesday, June 01, 2016 20:57 - CONCLUSION: No DVT in the right leg. Scar Prasad MD Abdomen/Pelvis CT 06/01/16 0000 Signed Impressions: Service Date/Time: Wednesday, June 01, 2016 18:19 - CONCLUSION: 1. Bilateral new severe hydronephrosis. 2. Heterogeneous appearance to the bladder could be from hematoma and/or mass. 3. Multiple pelvic masses are again noted, some of which are new, with increase in size of pelvic lymphadenopathy and retroperitoneal lymphadenopathy. Scar Prasad MD PHYSICAL EXAMINATION GENERAL: No acute distress. Awake and alert and responsive. HEENT: Head atraumatic. Extraocular movements grossly intact, pupils reactive to light without icterus. NECK: Supple without adenopathy or swelling. LUNGS: Clear breath sounds HEART: Regular rate and rhythm. ABDOMEN: Bowel sounds present, soft. Bilateral nephrostomy tubes has clear urine. EXTREMITIES: No clubbing, cyanosis or edema. SKIN: No rash. NEUROLOGIC: Grossly nonfocal. PSYCHIATRIC: Calm and cooperative. IMPRESSION 1. Urinary tract infection. 2. Neurogenic bladder 3. Bladder carcinoma. S/P radical cystectomy. 4. Acute renal insufficiency. Improving. 5. Leukocytosis. RECOMMENDATIONS 1. Continue Daptomycin. 2. Continue fluconazole. 3. Also on Flagyl, Ancef. 4. Follow WBC. 5. Follow urine culture to adjust antibiotic. Levy Zhao MD Jun 10, 2016 12:01
[2016-06-10] MEDS: PCA - TOTAL MG DILAUDID DELIVERED PER SHIFT SCH ×2 (14:00→22:00)
[2016-06-10 15:14] LABS: HEMATOCRIT 21.2 % (39.0-51.0); REVIEW FLAG FINAL
[2016-06-10] MEDS: FLUCONAZOLE 200 MG PREMIX BAG 100 ML IV SCH (17:31)
[2016-06-10] MEDS: PANTOPRAZOLE SODIUM 40 MG VIAL IV PUSH SCH (17:31)
[2016-06-10] MEDS: FAT EMULSION 20% INJ 250 ML (Daily over 8 hours) IV-CENTRAL SCH (20:55)
[2016-06-10] MEDS: CLINIMIX E 5/25 1000 mL- </= 42 mls/hr IV-CENTRAL SCH ×3 (20:56)
[2016-06-11] VITALS (14 sets, daily range): BP systolic 125–150; BP diastolic 63–77; PULSE 65–119; RESP 10–18; TEMP 98.1–99; O2SAT 96–98
[2016-06-11] MEDS: ceFAZolin 2 GM PREMIX 50 ML IV SCH ×2 (00:24→08:50)
[2016-06-11] MEDS: HYDROmorphone HCL PCA 6 MG/30 ML IV SCH ×4 (00:29→17:58)
[2016-06-11] MEDS: metroNIDAZOLE 500 MG INJ 100 ML IV SCH ×2 (00:33→08:49)
[2016-06-11] MEDS: RESP: ALBUTEROL 2.5 MG/IPRATROPIUM 0.5 MG NEB (SCH) INH ×4 (03:50→19:31)
[2016-06-11] MEDS: 1/2 NS + KCL 20 MEQ INJ 1,000 ML IV SCH ×2 (04:55→22:07)
[2016-06-11 05:12] LABS: ALT (GPT) 18 U/L (12-78); ANION GAP 6 MEQ/L (5-15); AST (GOT) 32 U/L (15-37); AUTOMATED NEUTROPHIL # 10.3 TH/MM3 (1.8-7.7); BASOPHIL % 0.3 % (0.0-2.0); BLOOD UREA NITROGEN 10 MG/DL (7-18); CHLORIDE 109 MEQ/L (98-107); EOSINOPHIL # 0.9 TH/MM3 (0-0.4); EOSINOPHIL % 6.4 % (0.0-4.0); GLOMERULAR FILTRATION RATE 71 ML/MIN (>89); HEMATOCRIT 24.7 % (39.0-51.0); HEMO FLAGS DIFF FINAL; LYMPH % 12.4 % (9.0-44.0); LYMPHOCYTE # 1.7 TH/MM3 (1.0-4.8); MAGNESIUM 1.9 MG/DL (1.5-2.5); MEAN CELL VOLUME 85.7 FL (80.0-100.0); MEAN CORPUSCULAR HEMOGLOBIN 29.6 PG (27.0-34.0); MEAN CORPUSCULAR HGB CONC 34.6 % (32.0-36.0); MONO % 6.6 % (0.0-8.0); NEUT % 74.3 % (16.0-70.0); PLATELET COUNT 215 TH/MM3 (150-450); POTASSIUM 3.2 MEQ/L (3.5-5.1); RED BLOOD COUNT 2.88 MIL/MM3 (4.50-5.90); RED CELL DISTRIBUTION WIDTH 16.3 % (11.6-17.2); SODIUM (NA) 148 MEQ/L (136-145); WHITE BLOOD COUNT 13.8 TH/MM3 (4.0-11.0)
[2016-06-11 05:15] LABS: ALKALINE PHOSPHATASE 63 U/L (45-117); TOTAL BILIRUBIN ADULT 0.3 MG/DL (0.2-1.0)
[2016-06-11] MEDS: INSULIN NovoLIN REGULAR SUPPLEMENTAL SCALE SQ SCH ×3 (06:00→18:00)
[2016-06-11] MEDS: PCA - TOTAL MG DILAUDID DELIVERED PER SHIFT SCH ×3 (06:08→22:00)
[2016-06-11] MEDS: GENTAMICIN 80 MG PREMIX 100 ML IV SCH (06:09)
[2016-06-11] MEDS: POTASSIUM CHLOR 40 MEQ PREMIX 100 ML IV PRN (06:19)
--- NOTE | 2016-06-11 07:54 | HHI.CCPN ---
Subjective Remarks/Hospital Course Is a 50-year-old male with a history of neurogenic bladder who was recently diagnosed with new locally advanced muscle invasive bladder cancer who underwent neoadjuvant chemotherapy and is now postop day 0 status post open radical cystectomy. His intraoperative course was complicated by a 4 L EBL with massive resuscitation. He was left intubated for concerns over fluid shifts. I evaluated the patient in the PACU. He was still intubated and sedated. He cannot participate in a history. He was on phenylephrine infusion at 50 mics per minute. Critical-care medicine is consulted to evaluate and manage his postresuscitation and postoperative care. 06/09: Good gas exchange. Well perfused. Urine output acceptable. 06/10: Acceptable urine output. Anemia, will transfuse. Breathing without complaints aside from considerable pain. 06/11: Excellent urine output. Breathing comfortably. Pain control acceptable. Objective Vital Signs Date Time Temp Pulse Resp B/P Pulse Ox O2 Delivery O2 Flow Rate FiO2 06/11/16 06:00 95 06/11/16 04:00 99.0 18 148/74 98 06/10/16 20:34 Nasal Cannula 2.00 06/09/16 09:44 30 Intake and Output 06/10/16 06/10/16 06/11/16 08:00 16:00 00:00 Intake Total 1292 ml 1045 ml 2022 ml Output Total 2180 ml 1740 ml 1230 ml Balance -888 ml -695 ml 792 ml Result Diagram: 06/11/16 0415 06/11/16 0415 Objective Remarks GENERAL: Middle-aged male, calm HEENT: Normocephalic. Atraumatic. NECK: Airway widely patent. No obstruction. CHEST: Clear to auscultation. Better cough. CARDIOVASCULAR: Normal rate, regular rhythm. No JVD. ABDOMEN: Midline incision is clean and dry. Urostomy tubes with clear yellow urine. MUSCULOSKELETAL: Trace peripheral edema. Warm, well perfused. NEUROLOGICAL: Moves 4 limbs with strength. Follows commands. O X 3. Cooperative with IS. Procedures nephrostomy tube placement by IR 06/03/16 A/P Assessment and Plan Plan by systems: Neurologic: Acute postoperative pain - Converted to dilaudid EXTENSION EDGER. Respiratory: Postoperative pulmonary insufficiency -Extubated -IS q2h Cardiovascular: Hypovolemic shock -Resolved. Renal: Acute on chronic kidney injury Status post radical cystectomy Continue strict I's and O's with monitoring from nephrostomy tube Zuniga catheter which exits the penis is actually a pelvic drain. Continue this to traction. -- Strict I/Os -RF normalized FEN/GI: Acute protein calorie malnutritionmild Intravascular hypovolemia Resolved Daily BMP Heme/ID: Anemia acute blood loss Perioperative antibiotics per surgeon Goal hemoglobin greater than 7 Endocrine: Hyperglycemia of critical illness -- SSI, every 6 hours, medium scale Prophylaxis: GI Prophylaxis Protonix 40 mg IV q 24 hours DVT Prophylaxis -- SCDs --Start DVT px Lines: Left arm PICC line Right subclavian port Overall impression: Good progress s/p major urological procedure. Pain control improved. Excellent urine output and peripheral perfusion. Jimi Taylor MD Jun 11, 2016 07:54
[2016-06-11] MEDS: LACTOBACILLUS ACIDOPHILUS 1 GM PACKET PO SCH ×4 (08:48→20:18)
[2016-06-11] MEDS: SODIUM CHLORIDE 0.9% FLUSH 5 ML FLUSH FLUSH SCH ×2 (08:53→20:17)
[2016-06-11] MEDS ORDERED: ENOXAPARIN SODIUM 40 MG/0.4 ML SYRINGE SQ SCH (09:00)
[2016-06-11] MEDS: PHYTONADIONE 100 MCG PO SCH (09:00)
--- NOTE | 2016-06-11 14:50 | HHI.PR ---
Subjective Remarks Pt seen and examined. Pain controlled. OOB earlier today. Hgb up to 8.5 s/p transfusion. Good u/o. Objective Vital Signs Vital Signs Date Time Temp Pulse Resp B/P Pulse Ox O2 Delivery O2 Flow Rate FiO2 06/11/16 12:56 19 06/11/16 12:00 98.5 90 13 147/76 96 06/11/16 12:00 90 06/11/16 10:00 100 06/11/16 08:52 96 Nasal Cannula 2.50 06/11/16 08:00 98.3 94 17 136/68 97 06/11/16 08:00 97 06/11/16 07:00 97 Nasal Cannula 3.00 06/11/16 06:00 95 06/11/16 04:00 99 06/11/16 04:00 99.0 96 18 148/74 98 06/11/16 02:00 98 06/11/16 00:59 10 06/11/16 00:00 98.9 93 10 125/65 97 06/11/16 00:00 92 06/10/16 22:00 106 06/10/16 22:00 19 06/10/16 20:34 100 Nasal Cannula 2.00 06/10/16 20:00 98.4 116 22 137/64 99 06/10/16 20:00 108 06/10/16 19:00 98 Nasal Cannula 3.00 06/10/16 18:45 18 06/10/16 16:00 98.3 119 17 128/63 98 06/10/16 16:00 119 I/O 06/10/16 06/10/16 06/10/16 06/11/16 06/11/16 06/11/16 07:00 15:00 23:00 07:00 15:00 23:00 Intake Total 1292 ml 1045 ml 2022 ml 1101 ml Output Total 2180 ml 1740 ml 1230 ml 1895 ml Balance -888 ml -695 ml 792 ml -794 ml IV Total 778 ml 703 ml 1272 ml 564 ml TPN/PPN 302 ml 342 ml 287 ml Lipid 212 ml 250 ml Packed Cells 500 ml Other 250 ml Gastric Drainage Total 75 ml 150 ml 0 ml 0 ml Drainage Total 2105 ml 1590 ml 1230 ml 1895 ml # Bowel Movements 0 0 0 0 Result Diagram: 06/11/16 0415 06/11/165 Objective Remarks Abd:soft,some tenderness, ND Zuniga now with clear urine 06/03 Abd:soft,nd, mild tenderness Zuniga: rahul urine 06/06 Abd:soft, tender on exam Urine: dark blood PCNT's both with bloody urine 06/07 Abd:soft,tender on exam Zuniga irrigated at bedside; pink color PCNT's with bloody urine Ext: neg 06/08 CV: sinus tach Lungs: BS bilaterally Abd:soft, slight distension, NT Stoma: pink and viable; urine rahul B/L PCNT's: rahul urine Pelvic drain: bloody; minimal output Ext: 2+ edema 06/10 CV: sinus tach Lungs: BS bilaterally Abd: Distended, tender with palpation Stoma: pink and viable with clear urine B/L PNCT's with clear urine Ext: 2+ edema 06/11 Abd:soft,nd, some tenderness Stoma: pink and viable Ext: 2+ edema Clear urine from NT's and conduit Assessment and Plan Assessment and Plan 50 y.o male with muscle invasive bladder cancer with evidence of worsening adenopathy and hydronephrosis. Bone scan to r/o ronald metastasis. IR consult to place bilateral nephrostomy tubes to help improve renal function Options of treatment discussed with family: Continued chemotherapy with XRT vs palliative surgery. If bone scan is negative would recommend palliative cystectomy. 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 Will need to correct anemia/thrombocytopenia and need to improve nutritional status. Will start TPN. Albumin is 2.4 at present. Hope to perform cystectomy next week. 06/03 50 y.o male with muscle invasive bladder cancer with evidence of worsening adenopathy and hydronephrosis. Bone scan negative for ronald metastasis. For bilateral PCNT's today Continue TPN For PICC line placement in near future 06/06 50 y.o male with muscle invasive bladder cancer For 2 more units of PRBC;s today PICC line today Replace K+ Continue TPN OR on Monday if Hgb at 10 or above 06/07 50 y.o male with muscle invasive bladder cancer 2 more units of PRBC's today for Hgb 7.9 Replace K OR in AM 06/08 Stable s/p Radical cystoprostatectomy with b/l PLND and ileal conduit creation Extubate today Ween of pressors as pt tolerates Continue TPN OOB tomorrow to chair if extubated 06/10 Stable s/p Radical Cystoprostatectomy with b/l PLND and ileal conduit POD#2 OOB to chair Replace Fentanyl drip with Dilaudid ATMOSPHERIC CHEMIST if ok with script manager Check Hgb later today; was 7.7 this AM; this may be dilutional Incentive sphirometer Continue TPN IVF changed to 05/23 NS at 50cc/hr PT consult 06/11 Stable s/p Radical Cystoprostatectomy with b/l PLND and ileal conduit POD#3 Hgb up to 8.5 s/p transfusion Continue with OOB/Rehab Will hold Lovenox in view of recent need for transfusion Continue TPN Will cap PCNT's in near future and if no evidence of ureteral conduit leak with remove tubes Eulogio Lee DO Jun 11, 2016 14:50
[2016-06-11] MEDS: PANTOPRAZOLE SODIUM 40 MG VIAL IV PUSH SCH (16:33)
[2016-06-11] MEDS: FLUCONAZOLE 200 MG PREMIX BAG 100 ML IV SCH (16:33)
[2016-06-11] MEDS: FAT EMULSION 20% INJ 250 ML (Daily over 8 hours) IV-CENTRAL SCH (20:17)
[2016-06-11] MEDS: DAPTOmycin INJ 320 MG in SODIUM CHLORIDE 0.9% INJ 100 ML IV SCH (20:17)
[2016-06-11] MEDS: CLINIMIX E 5/25 1000 mL- </= 42 mls/hr IV-CENTRAL SCH ×3 (20:17)
[2016-06-12] VITALS (14 sets, daily range): BP systolic 144–157; BP diastolic 72–85; PULSE 82–102; RESP 10–18; TEMP 97.8–99; O2SAT 97–100
[2016-06-12] MEDS: HYDROmorphone HCL PCA 6 MG/30 ML IV SCH ×4 (00:18→20:42)
[2016-06-12] MEDS: RESP: ALBUTEROL 2.5 MG/IPRATROPIUM 0.5 MG NEB (SCH) INH ×4 (03:27→20:10)
[2016-06-12 05:04] LABS: AUTOMATED NEUTROPHIL # 6.4 TH/MM3 (1.8-7.7); BASOPHIL # 0.1 TH/MM3 (0-0.2); BASOPHIL % 0.7 % (0.0-2.0); EOSINOPHIL # 0.9 TH/MM3 (0-0.4); EOSINOPHIL % 9.2 % (0.0-4.0); HEMATOCRIT 24.6 % (39.0-51.0); HEMO FLAGS DIFF FINAL; LYMPH % 15.8 % (9.0-44.0); LYMPHOCYTE # 1.5 TH/MM3 (1.0-4.8); MEAN CELL VOLUME 86.9 FL (80.0-100.0); MEAN CORPUSCULAR HEMOGLOBIN 29.3 PG (27.0-34.0); MEAN CORPUSCULAR HGB CONC 33.7 % (32.0-36.0); MONO % 6.1 % (0.0-8.0); NEUT % 68.2 % (16.0-70.0); PLATELET COUNT 261 TH/MM3 (150-450); RED BLOOD COUNT 2.83 MIL/MM3 (4.50-5.90); RED CELL DISTRIBUTION WIDTH 15.9 % (11.6-17.2); WHITE BLOOD COUNT 9.4 TH/MM3 (4.0-11.0)
[2016-06-12 05:18] LABS: BICARBONATE 29.8 MEQ/L (21.0-32.0); POTASSIUM 3.1 MEQ/L (3.5-5.1)
[2016-06-12] MEDS: INSULIN NovoLIN REGULAR SUPPLEMENTAL SCALE SQ SCH ×4 (05:30→18:00)
[2016-06-12] MEDS: POTASSIUM CHLOR 40 MEQ PREMIX 100 ML IV PRN ×2 (05:34→06:18)
[2016-06-12] MEDS: PCA - TOTAL MG DILAUDID DELIVERED PER SHIFT SCH ×3 (06:00→22:00)
--- NOTE | 2016-06-12 06:26 | HHI.CCPN ---
Subjective Remarks/Hospital Course Is a 50-year-old male with a history of neurogenic bladder who was recently diagnosed with new locally advanced muscle invasive bladder cancer who underwent neoadjuvant chemotherapy and is now postop day 0 status post open radical cystectomy. His intraoperative course was complicated by a 4 L EBL with massive resuscitation. He was left intubated for concerns over fluid shifts. I evaluated the patient in the PACU. He was still intubated and sedated. He cannot participate in a history. He was on phenylephrine infusion at 50 mics per minute. Critical-care medicine is consulted to evaluate and manage his postresuscitation and postoperative care. 06/09: Good gas exchange. Well perfused. Urine output acceptable. 06/10: Acceptable urine output. Anemia, will transfuse. Breathing without complaints aside from considerable pain. 06/11: Excellent urine output. Breathing comfortably. Pain control acceptable. 06/12: Remains well perfused and mildly edematous. Breathing comfortably and quite stable. Objective Vital Signs Date Time Temp Pulse Resp B/P Pulse Ox O2 Delivery O2 Flow Rate FiO2 06/12/16 04:00 84 06/12/16 04:00 98.4 10 147/72 98 06/11/16 19:33 Nasal Cannula 3.00 06/09/16 09:44 30 Intake and Output 06/11/16 06/11/16 06/12/16 08:00 16:00 00:00 Intake Total 1101 ml 1159 ml 1103 ml Output Total 1895 ml 2810 ml 1887 ml Balance -794 ml -1651 ml -784 ml Result Diagram: 06/12/16 0450 06/12/16 0450 Other Results Microbiology Date/Time Procedure Status Source Growth 06/09/16 19:30 Urine Culture - Final Complete Urine Catheterized Urine NO GROWTH IN 48 HOURS. Objective Remarks GENERAL: Middle-aged male, calm HEENT: Normocephalic. Atraumatic. NECK: Airway widely patent. No obstruction. CHEST: Clear to auscultation. Good cough. CARDIOVASCULAR: Normal rate, regular rhythm. No JVD. ABDOMEN: Midline incision is clean and dry. Urostomy tubes with clear yellow urine. MUSCULOSKELETAL: 1+ peripheral edema. Warm, well perfused. NEUROLOGICAL: Moves 4 limbs with strength. Follows commands. O X 3. Cooperative with IS. Procedures nephrostomy tube placement by IR 06/03/16 A/P Assessment and Plan Plan by systems: Neurologic: Acute postoperative pain - Dilaudid FISHING HAND. Respiratory: Postoperative pulmonary insufficiency -Extubated 06/10 -IS q2h Cardiovascular: Hypovolemic shock -Resolved. Renal: Acute on chronic kidney injury Status post radical cystectomy Continue strict I's and O's with monitoring from nephrostomy tube Zuniga catheter which exits the penis is actually a pelvic drain. Continue this to traction. -- Strict I/Os -RF normalized FEN/GI: Acute protein calorie malnutritionmild Intravascular hypovolemia Resolved Daily BMP Heme/ID: Anemia acute blood loss Perioperative antibiotics per surgeon, adjust by ID Goal hemoglobin greater than 7 Endocrine: Hyperglycemia of critical illness -- SSI, every 6 hours, medium scale Prophylaxis: GI Prophylaxis Protonix 40 mg IV q 24 hours DVT Prophylaxis -- SCDs --Start DVT px Lines: Left arm PICC line Right subclavian port Overall impression: Good progress s/p major urological procedure. Pain control improved. Excellent urine output and peripheral perfusion. NG per urology service; SB anastomosis. Transfer to floor. Jimi Taylor MD Jun 12, 2016 06:26
[2016-06-12] MEDS ORDERED: FUROSEMIDE 20 MG/2 ML VIAL IV PUSH ONE (06:30)
[2016-06-12] MEDS: LACTOBACILLUS ACIDOPHILUS 1 GM PACKET PO SCH ×4 (08:16→19:56)
[2016-06-12] MEDS: SODIUM CHLORIDE 0.9% FLUSH 5 ML FLUSH FLUSH SCH ×2 (08:19→19:56)
--- NOTE | 2016-06-12 08:59 | HHI.PR ---
Subjective Remarks Pt seen and examined. Feels well. Pain is controlled. Hbg stable at 8.3. Objective Vital Signs Vital Signs Date Time Temp Pulse Resp B/P Pulse Ox O2 Delivery O2 Flow Rate FiO2 06/12/16 06:00 102 06/12/16 04:00 84 06/12/16 04:00 98.4 84 10 147/72 98 06/12/16 02:00 82 06/12/16 00:00 88 06/12/16 00:00 98.2 88 15 156/85 99 06/11/16 22:00 90 06/11/16 20:00 98.1 94 14 150/76 98 06/11/16 20:00 94 06/11/16 19:33 98 Nasal Cannula 3.00 06/11/16 19:00 98 Nasal Cannula 2.00 06/11/16 18:28 15 06/11/16 18:00 89 06/11/16 17:58 14 06/11/16 16:00 98.4 88 12 149/77 96 06/11/16 16:00 88 06/11/16 14:00 91 06/11/16 14:00 12 06/11/16 12:56 19 06/11/16 12:00 98.5 90 13 147/76 96 06/11/16 12:00 90 06/11/16 10:00 100 I/O 06/11/16 06/11/16 06/11/16 06/12/16 06/12/16 06/12/16 07:00 15:00 23:00 07:00 15:00 23:00 Intake Total 1101 ml 1159 ml 1103 ml 1007 ml Output Total 1895 ml 2810 ml 1887 ml 1336 ml Balance -794 ml -1651 ml -784 ml -329 ml Intake Oral 100 ml 50 ml IV Total 564 ml 713 ml 668 ml 442 ml TPN/PPN 287 ml 346 ml 362 ml 313 ml Lipid 250 ml 43 ml 202 ml Other 30 ml Gastric Drainage Total 0 ml 0 ml 0 ml 0 ml Drainage Total 1895 ml 2810 ml 1887 ml 1336 ml # Bowel Movements 0 0 0 0 Result Diagram: 06/12/16 0450 06/12/16 045 Objective Remarks Abd:soft,some tenderness, ND Zuniga now with clear urine 06/03 Abd:soft,nd, mild tenderness Zuniga: rahul urine 06/06 Abd:soft, tender on exam Urine: dark blood PCNT's both with bloody urine 06/07 Abd:soft,tender on exam Zuniga irrigated at bedside; pink color PCNT's with bloody urine Ext: neg 06/08 CV: sinus tach Lungs: BS bilaterally Abd:soft, slight distension, NT Stoma: pink and viable; urine rahul B/L PCNT's: rahul urine Pelvic drain: bloody; minimal output Ext: 2+ edema 06/10 CV: sinus tach Lungs: BS bilaterally Abd: Distended, tender with palpation Stoma: pink and viable with clear urine B/L PNCT's with clear urine Ext: 2+ edema 06/11 Abd:soft,nd, some tenderness Stoma: pink and viable Ext: 2+ edema Clear urine from NT's and conduit 06/12 CV: sinus tach Lungs: CTA Abd: soft,nt,nd Stoma: pink and viable; urine clear PCNT's: urine clear Ext: 1+ edema Assessment and Plan Assessment and Plan 50 y.o male with muscle invasive bladder cancer with evidence of worsening adenopathy and hydronephrosis. Bone scan to r/o ronald metastasis. IR consult to place bilateral nephrostomy tubes to help improve renal function Options of treatment discussed with family: Continued chemotherapy with XRT vs palliative surgery. If bone scan is negative would recommend palliative cystectomy. Pt understands this is not curative but superintendent terminal it would reduce readmissions and improve quality of life for now. Will need to correct anemia/thrombocytopenia and need to improve nutritional status. Will start TPN. Albumin is 2.4 at present. Hope to perform cystectomy next week. 06/03 50 y.o male with muscle invasive bladder cancer with evidence of worsening adenopathy and hydronephrosis. Bone scan negative for ronald metastasis. For bilateral PCNT's today Continue TPN For PICC line placement in near future 06/06 50 y.o male with muscle invasive bladder cancer For 2 more units of PRBC;s today PICC line today Replace K+ Continue TPN OR on Monday if Hgb at 10 or above 06/07 50 y.o male with muscle invasive bladder cancer 2 more units of PRBC's today for Hgb 7.9 Replace K OR in AM 06/08 Stable s/p Radical cystoprostatectomy with b/l PLND and ileal conduit creation Extubate today Ween of pressors as pt tolerates Continue TPN OOB tomorrow to chair if extubated 06/10 Stable s/p Radical Cystoprostatectomy with b/l PLND and ileal conduit POD#2 OOB to chair Replace Fentanyl drip with Dilaudid GEOSPATIAL TECHNOLOGIST if ok with traffic assistant Check Hgb later today; was 7.7 this AM; this may be dilutional Incentive sphirometer Continue TPN IVF changed to 05/23 NS at 50cc/hr PT consult 06/11 Stable s/p Radical Cystoprostatectomy with b/l PLND and ileal conduit POD#3 Hgb up to 8.5 s/p transfusion Continue with OOB/Rehab Will hold Lovenox in view of recent need for transfusion Continue TPN Will cap PCNT's in near future and if no evidence of ureteral conduit leak with remove tubes 06/12 Stable s/p Radical Cystoprostatectomy with b/l PLND and ileal conduit POD#4 OOB to chair Hgb stable at 8.3 Replace K+ Continue TPN Transfer to floor tomorrow Eulogio Lee DO Jun 12, 2016 08:59
[2016-06-12] MEDS: PHYTONADIONE 100 MCG PO SCH (09:00)
[2016-06-12] MEDS: POTASSIUM CHLOR 40 MEQ PREMIX 100 ML IV SCH ×2 (10:00→12:00)
[2016-06-12] MEDS: PANTOPRAZOLE SODIUM 40 MG VIAL IV PUSH SCH (16:55)
[2016-06-12] MEDS: FLUCONAZOLE 200 MG PREMIX BAG 100 ML IV SCH (17:00)
[2016-06-12] MEDS: FAT EMULSION 20% INJ 250 ML (Daily over 8 hours) IV-CENTRAL SCH (19:55)
[2016-06-12] MEDS: 1/2 NS + KCL 20 MEQ INJ 1,000 ML IV SCH (19:55)
[2016-06-12] MEDS: CLINIMIX E 5/25 1000 mL- </= 42 mls/hr IV-CENTRAL SCH ×3 (19:55)
[2016-06-12] MEDS: DAPTOmycin INJ 320 MG in SODIUM CHLORIDE 0.9% INJ 100 ML IV SCH (19:55)
[2016-06-13] VITALS (7 sets, daily range): BP systolic 141–169; BP diastolic 81–99; PULSE 92–113; RESP 17–20; TEMP 97.4–98.7; O2SAT 95–99
[2016-06-13] MEDS: HYDROmorphone HCL PCA 6 MG/30 ML IV SCH ×5 (01:41→23:14)
[2016-06-13] MEDS: RESP: ALBUTEROL 2.5 MG/IPRATROPIUM 0.5 MG NEB (SCH) INH (03:23)
[2016-06-13] MEDS: PCA - TOTAL MG DILAUDID DELIVERED PER SHIFT SCH ×3 (05:51→22:00)
[2016-06-13 07:06] LABS: AUTOMATED NEUTROPHIL # 4.9 TH/MM3 (1.8-7.7); BASOPHIL % 0.6 % (0.0-2.0); EOSINOPHIL # 0.7 TH/MM3 (0-0.4); HEMATOCRIT 25.5 % (39.0-51.0); HEMO FLAGS DIFF FINAL; LYMPH % 20.9 % (9.0-44.0); LYMPHOCYTE # 1.7 TH/MM3 (1.0-4.8); MEAN CELL VOLUME 88.4 FL (80.0-100.0); MEAN CORPUSCULAR HEMOGLOBIN 29.8 PG (27.0-34.0); MEAN CORPUSCULAR HGB CONC 33.7 % (32.0-36.0); MONO % 7.9 % (0.0-8.0); NEUT % 61.6 % (16.0-70.0); PLATELET COUNT 301 TH/MM3 (150-450); RED BLOOD COUNT 2.88 MIL/MM3 (4.50-5.90); RED CELL DISTRIBUTION WIDTH 15.6 % (11.6-17.2)
[2016-06-13 07:11] LABS: BICARBONATE 31.4 MEQ/L (21.0-32.0); POTASSIUM 3.7 MEQ/L (3.5-5.1)
[2016-06-13] MEDS: SODIUM CHLORIDE 0.9% FLUSH 5 ML FLUSH FLUSH SCH ×2 (07:36→20:27)
[2016-06-13] MEDS: PHYTONADIONE 100 MCG PO SCH (07:37)
[2016-06-13] MEDS: LACTOBACILLUS ACIDOPHILUS 1 GM PACKET PO SCH ×4 (07:37→20:45)
--- NOTE | 2016-06-13 08:29 | HHI.PR ---
Subjective Remarks Pt seen and examined. Some pain. No events overnight Objective Vital Signs Vital Signs Date Time Temp Pulse Resp B/P Pulse Ox O2 Delivery O2 Flow Rate FiO2 06/13/16 07:39 96 21 06/13/16 07:31 17 06/13/16 05:51 18 06/13/16 01:51 98.0 98 20 150/88 99 06/13/16 01:41 18 06/13/16 00:00 94 06/13/16 00:00 98.4 94 19 169/81 98 06/12/16 22:00 84 06/12/16 20:10 98 Nasal Cannula 2.00 06/12/16 20:00 99.0 92 15 157/85 99 06/12/16 20:00 92 06/12/16 19:00 100 Nasal Cannula 2.00 06/12/16 18:00 91 06/12/16 16:00 94 06/12/16 16:00 97.8 94 16 144/82 100 06/12/16 14:00 16 06/12/16 14:00 86 06/12/16 12:00 98.2 98 18 146/82 100 06/12/16 12:00 90 06/12/16 11:03 20 06/12/16 10:57 97 Nasal Cannula 2.00 06/12/16 10:00 89 I/O 06/12/16 06/12/16 06/12/16 06/13/16 06/13/16 06/13/16 07:00 15:00 23:00 07:00 15:00 23:00 Intake Total 1007 ml 999 ml 1923 ml 830 ml Output Total 1336 ml 4299 ml 1020 ml 1203 ml Balance -329 ml -3300 ml 903 ml -373 ml Intake Oral 50 ml 50 ml 30 ml IV Total 442 ml 417 ml 1150 ml 200 ml TPN/PPN 313 ml 349 ml 672 ml 350 ml Lipid 202 ml 51 ml 250 ml Other 233 ml Output Urine Total 0 ml Gastric Drainage Total 0 ml 0 ml 0 ml Drainage Total 1336 ml 4299 ml 1020 ml 1203 ml # Bowel Movements 0 0 0 0 Result Diagram: 06/13/1662406/13/16624 Objective Remarks Abd:soft,some tenderness, ND Zuniga now with clear urine 06/03 Abd:soft,nd, mild tenderness Zuniga: rahul urine 06/06 Abd:soft, tender on exam Urine: dark blood PCNT's both with bloody urine 06/07 Abd:soft,tender on exam Zuniga irrigated at bedside; pink color PCNT's with bloody urine Ext: neg 06/08 CV: sinus tach Lungs: BS bilaterally Abd:soft, slight distension, NT Stoma: pink and viable; urine rahul B/L PCNT's: rahul urine Pelvic drain: bloody; minimal output Ext: 2+ edema 06/10 CV: sinus tach Lungs: BS bilaterally Abd: Distended, tender with palpation Stoma: pink and viable with clear urine B/L PNCT's with clear urine Ext: 2+ edema 06/11 Abd:soft,nd, some tenderness Stoma: pink and viable Ext: 2+ edema Clear urine from NT's and conduit 06/12 CV: sinus tach Lungs: CTA Abd: soft,nt,nd Stoma: pink and viable; urine clear PCNT's: urine clear Ext: 1+ edema 06/13 CV: RRR Lungs: CTA Abd: soft,some tenderness, no rebound Stoma: pink and viable Ext: neg Urine clear from NT's and conduit Assessment and Plan Assessment and Plan 50 y.o male with muscle invasive bladder cancer with evidence of worsening adenopathy and hydronephrosis. Bone scan to r/o ronald metastasis. IR consult to place bilateral nephrostomy tubes to help improve renal function Options of treatment discussed with family: Continued chemotherapy with XRT vs palliative surgery. If bone scan is negative would recommend palliative cystectomy. Pt understands this is not curative but [facility] it would reduce readmissions and improve quality of life for now. Will need to correct anemia/thrombocytopenia and need to improve nutritional status. Will start TPN. Albumin is 2.4 at present. Hope to perform cystectomy next week. 06/03 50 y.o male with muscle invasive bladder cancer with evidence of worsening adenopathy and hydronephrosis. Bone scan negative for ronald metastasis. For bilateral PCNT's today Continue TPN For PICC line placement in near future 06/06 50 y.o male with muscle invasive bladder cancer For 2 more units of PRBC;s today PICC line today Replace K+ Continue TPN OR on Monday if Hgb at 10 or above 06/07 50 y.o male with muscle invasive bladder cancer 2 more units of PRBC's today for Hgb 7.9 Replace K OR in AM 06/08 Stable s/p Radical cystoprostatectomy with b/l PLND and ileal conduit creation Extubate today Ween of pressors as pt tolerates Continue TPN OOB tomorrow to chair if extubated 06/10 Stable s/p Radical Cystoprostatectomy with b/l PLND and ileal conduit POD#2 OOB to chair Replace Fentanyl drip with Dilaudid FIRE HAZARD INSPECTOR if ok with software program manager Check Hgb later today; was 7.7 this AM; this may be dilutional Incentive sphirometer Continue TPN IVF changed to / NS at 50cc/hr PT consult 06/11 Stable s/p Radical Cystoprostatectomy with b/l PLND and ileal conduit POD#3 Hgb up to 8.5 s/p transfusion Continue with OOB/Rehab Will hold Lovenox in view of recent need for transfusion Continue TPN Will cap PCNT's in near future and if no evidence of ureteral conduit leak with remove tubes 06/12 Stable s/p Radical Cystoprostatectomy with b/l PLND and ileal conduit POD#4 OOB to chair Hgb stable at 8.3 Replace K+ Continue TPN Transfer to floor tomorrow 06/13 Stable s/p Radical Cystoprostatectomy with b/l PLND and ileal conduit POD#5 OOB today Replace K+ Continue TPN Ducolux suppository Eulogio Lee DO Jun 13, 2016 08:29
[2016-06-13] MEDS ORDERED: BISACODYL 10 MG SUPP RECTAL ONE (08:30)
[2016-06-13] MEDS: POTASSIUM CHLOR 40 MEQ PREMIX 100 ML IV SCH ×2 (11:49→15:59)
[2016-06-13] MEDS: INSULIN NovoLIN REGULAR SUPPLEMENTAL SCALE SQ SCH ×3 (12:00→17:45)
--- NOTE | 2016-06-13 13:53 | PD.ONC.PN ---
Subjective Subjective Remarks Afebrile overnight. Patient continues to have pain at surgical site. He states its bearable with the pain pump, but persistent. Multiple family members at bedside have questions about pathology which returned today. Objective Data Date Time Temp Pulse Resp B/P Pulse Ox O2 Delivery O2 Flow Rate FiO2 06/13/16 13:33 20 06/13/16 13:14 18 06/13/16 12:00 97.4 113 20 155/99 96 06/13/16 08:01 20 06/13/16 08:00 98.7 92 17 155/92 95 06/13/16 07:39 96 21 06/13/16 07:31 17 06/13/16 05:51 18 06/13/16 01:51 98.0 98 20 150/88 99 06/13/16 01:41 18 06/13/16 00:00 94 06/13/16 00:00 98.4 94 19 169/81 98 06/12/16 22:00 84 06/12/16 20:10 98 Nasal Cannula 2.00 06/12/16 20:00 99.0 92 15 157/85 99 06/12/16 20:00 92 06/12/16 19:00 100 Nasal Cannula 2.00 06/12/16 18:00 91 06/12/16 16:00 94 06/12/16 16:00 97.8 94 16 144/82 100 06/12/16 14:00 16 06/12/16 14:00 86 06/13/16 06/13/16 06/13/16 07:00 15:00 23:00 Intake Total 830 ml 0 ml Output Total 1203 ml Balance -373 ml 0 ml Result Diagram: 06/13/1625 06/13/1625 Laboratory Results Laboratory Tests Test 06/13/16 06:25 White Blood Count 8.0 TH/MM3 Red Blood Count 2.88 MIL/MM3 Hemoglobin 8.6 GM/DL Hematocrit 25.5 % Mean Corpuscular Volume 88.4 FL Mean Corpuscular Hemoglobin 29.8 PG Mean Corpuscular Hemoglobin 33.7 % Concent Red Cell Distribution Width 15.6 % Platelet Count 301 TH/MM3 Mean Platelet Volume 7.5 FL Neutrophils (%) (Auto) 61.6 % Lymphocytes (%) (Auto) 20.9 % Monocytes (%) (Auto) 7.9 % Eosinophils (%) (Auto) 9.0 % Basophils (%) (Auto) 0.6 % Neutrophils # (Auto) 4.9 TH/MM3 Lymphocytes # (Auto) 1.7 TH/MM3 Monocytes # (Auto) 0.6 TH/MM3 Eosinophils # (Auto) 0.7 TH/MM3 Basophils # (Auto) 0.0 TH/MM3 CBC Comment DIFF FINAL Differential Comment Sodium Level 140 MEQ/L Potassium Level 3.7 MEQ/L Chloride Level 103 MEQ/L Carbon Dioxide Level 31.4 MEQ/L Anion Gap 6 MEQ/L Blood Urea Nitrogen 12 MG/DL Creatinine 0.86 MG/DL Estimat Glomerular Filtration 95 ML/MIN Rate Random Glucose 149 MG/DL Calcium Level 8.3 MG/DL Administered Medications Medications (Trade) Dose Ordered Sig/Ambika Route PRN Reason Start Time Stop Time Status Last Admin Dose Admin Lactobacillus Acidophilus (Lactinex Pkt) 1 gm QID PO 06/01/16 13:00 06/12/16 19:56 IV Flush (NS Flush) 2 ml BID FLUSH 06/01/16 21:00 06/12/16 19:56 Acetaminophen (Tylenol) 650 mg Q4H PRN PO TEMP > 100.4 06/01/16 11:30 06/09/16 09:10 Pantoprazole Sodium (Protonix Inj) 40 mg Q24H IV PUSH 06/01/16 17:00 06/12/16 16:55 Hydromorphone HCl (Dilaudid Pf Inj) 1 mg Q4H PRN IV Pain 6-10;if unable to take PO 06/03/16 14:30 06/10/16 08:36 Hydromorphone HCl (Dilaudid Pf Inj) 1 mg Q4H PRN IV BREAKTHROUGH PAIN 06/03/16 14:30 06/09/16 03:43 Patient Own Medication 1 ea DAILY PO 06/04/16 09:00 06/12/16 09:00 Ondansetron HCl (Zofran Inj) 4 mg Q6H PRN IV PUSH nausea and vomiting 06/03/16 23:15 06/09/16 16:22 IV Flush (NS Flush) See Protocol DAILY IVF 06/07/16 09:00 06/12/16 09:00 Heparin Sodium (Porcine) (Heparin Central Flush) See Protocol DAILY IVF 06/07/16 09:00 06/09/16 09:10 Acetaminophen 650 mg 650 mg Q6H PRN RECTAL temp >100.6 06/08/16 16:30 06/09/16 13:31 Fluconazole/ Sodium Chloride (Diflucan 200 Mg Premix Bag) 100 ml @ 100 mls/hr Q24H IV 06/08/16 17:00 06/12/16 17:00 Heparin Sodium (Porcine) 100 units 100 units DAILY IV FLUSH 06/09/16 09:00 06/11/16 08:51 Propofol 100 ml @ 0 mls/hr TITRATE IV 06/08/16 17:30 06/09/16 07:18 Phenylephrine HCl 40 mg/Dextrose 500 ml @ 0 mls/hr TITRATE IV 06/08/16 17:30 06/09/16 07:19 Fat Emulsion Intravenous 250 ml @ 31.25 mls/ hr Q24H IV-CENTRAL 06/08/16 20:00 06/12/16 19:55 Fentanyl Citrate 250 ml @ 0 mls/hr TITRATE IV 06/08/16 22:00 06/09/16 23:48 Potassium Chloride (KCl 40 Meq Premix Inj) 100 ml @ 50 mls/hr Q2H PRN IV For Potassium 2.8 - 3.2 mEq/L 06/09/16 01:30 06/12/16 06:18 Insulin Human Regular 1 1 Q6HR SQ 06/09/16 06:00 06/12/16 18:00 Multivitamins 10 ml/Folic Acid 1 mg/Amino Acids/ Electrolytes/ Dextrose 1,010.2 ml @ 42 mls/hr Q24H IV-CENTRAL 06/09/16 20:00 06/12/16 19:55 Potassium Chloride/Sodium Chloride (1/2 NS + KCl 20 Meq Inj) 1,000 ml @ 50 mls/hr Q20H IV 06/10/16 07:15 06/12/16 19:55 Hydromorphone HCl (Dilaudid TALENT ACQUISITION SPECIALIST Inj) 6 mg UNSCH IV 06/10/16 09:45 06/13/16 13:14 TALENT ACQUISITION SPECIALIST Dosage Infused (Pha) 1 Q8HR .XX 06/10/16 14:00 06/13/16 13:33 Enoxaparin Sodium 40 mg 40 mg Q24H SQ 06/11/16 09:00 Hold 06/11/16 08:49 Daptomycin 320 mg/ Sodium Chloride 100 ml @ 200 mls/hr Q24H IV 06/11/16 21:00 06/12/16 19:55 Potassium Chloride (KCl 40 Meq Premix Inj) 100 ml @ 25 mls/hr Q4H IV 06/13/16 10:00 06/13/16 17:59 06/13/16 11:49 Objective Remarks GENERAL: Middle aged male, lying in bed, multiple family members at bedside. SKIN: +diaphoretic HEAD: Normocephalic. EYES: No scleral icterus. No injection or drainage. NECK: Supple, trachea midline. CARDIOVASCULAR: Regular rate and rhythm RESPIRATORY: Breath sounds equal bilaterally. No accessory muscle use. GASTROINTESTINAL: Abdomen soft, ttp throughout. EXTREMITIES: No cyanosis NEUROLOGICAL: awake and alert, normal speech. Assessment/Plan Problem List: (1) Invasive carcinoma of urinary bladder Status: Acute Plan: 06/13/16: d/w patient and family pathology results. patient will need adjuvant therapy once healed from surgery 06/10/16: hgb=7.7. patient will likely need transfusion, but will defer to phone triage specialist. will check H/H this afternoon. 06/09/16: monitor hgb. await extubation s/p cystectomy 06/07/16: 3 units ordered by urology/pcp. will check H/H after blood transfused , order additional units if needed. 06/03/16: bone scan is negative, urology plans to proceed with palliative cystectomy next week. bilateral percutaneous nephrostomy tubes placed in IR today. Options of treatment discussed with family: Continued chemotherapy with XRT vs palliative surgery. If bone scan is negative would recommend palliative cystectomy. Pt understands this is not curative but fdc it would reduce readmissions and improve quality of life for now. + hydronephrosis to account for acute renal failure, noted new adenopathy concerning for progression vs. reactive given new UTI with margareth and staph epidermidis. Assessment 50 y/o man with locally advance, muscle invasive bladder cancer with recurrent hematuria complicated by acute renal failure and BL hydronephrosis. Now s/p bilateral percutaneous nephrostomy tube placement. Plan 1. monitor CBC 2. supportive care 3. plan for outpatient follow up/adjuvant therapy once healed from surgery Attending Statement The exam, history, and the medical decision-making described in the above note were completed with the assistance of the mid-level provider. I reviewed and agree with the findings presented. I attest that I had a [id number] encounter with the patient on the same day, and personally performed and documented my assessment and findings in the medical record. Pt seen and examined. Pathology reviewed. Discussed options for adjuvant chemotherapy. Discussed issue of positive margins and LN positive disease. BM today. Eager to have NGT removed. Improving. Jesika Wilkes Jun 13, 2016 13:53 Idalia Lee MD Jun 13, 2016 19:21
[2016-06-13] MEDS: 1/2 NS + KCL 20 MEQ INJ 1,000 ML IV SCH (15:34)
[2016-06-13] MEDS: PANTOPRAZOLE SODIUM 40 MG VIAL IV PUSH SCH (17:38)
[2016-06-13] MEDS: FLUCONAZOLE 200 MG PREMIX BAG 100 ML IV SCH (17:38)
[2016-06-13] MEDS: CLINIMIX E 5/25 1000 mL- </= 42 mls/hr IV-CENTRAL SCH ×3 (20:25)
[2016-06-13] MEDS: FAT EMULSION 20% INJ 250 ML (Daily over 8 hours) IV-CENTRAL SCH (20:26)
[2016-06-13] MEDS: DAPTOmycin INJ 320 MG in SODIUM CHLORIDE 0.9% INJ 100 ML IV SCH (20:28)
[2016-06-14] VITALS: BP 142/70; PULSE 90; RESP 16; TEMP 96.8; O2SAT 98
[2016-06-14] MEDS: HYDROmorphone HCL PCA 6 MG/30 ML IV SCH ×4 (04:56→20:52)
[2016-06-14 05:31] LABS: HEMATOCRIT 25.8 % (39.0-51.0); MEAN CELL VOLUME 87.6 FL (80.0-100.0); MEAN CORPUSCULAR HEMOGLOBIN 29.7 PG (27.0-34.0); MEAN CORPUSCULAR HGB CONC 33.9 % (32.0-36.0); PLATELET COUNT 312 TH/MM3 (150-450); RED BLOOD COUNT 2.95 MIL/MM3 (4.50-5.90); RED CELL DISTRIBUTION WIDTH 15.2 % (11.6-17.2); REVIEW FLAG FINAL; WHITE BLOOD COUNT 8.5 TH/MM3 (4.0-11.0)
[2016-06-14] MEDS: PCA - TOTAL MG DILAUDID DELIVERED PER SHIFT SCH ×2 (05:42→14:00)
[2016-06-14 05:53] LABS: ALT (GPT) 19 U/L (12-78); ANION GAP 7 MEQ/L (5-15); AST (GOT) 34 U/L (15-37); BICARBONATE 28.7 MEQ/L (21.0-32.0); BLOOD UREA NITROGEN 13 MG/DL (7-18); CHLORIDE 105 MEQ/L (98-107); GLOMERULAR FILTRATION RATE 109 ML/MIN (>89); MAGNESIUM 1.7 MG/DL (1.5-2.5); POTASSIUM 4.1 MEQ/L (3.5-5.1); SODIUM (NA) 141 MEQ/L (136-145)
[2016-06-14 05:56] LABS: ALKALINE PHOSPHATASE 103 U/L (45-117); TOTAL BILIRUBIN ADULT 0.7 MG/DL (0.2-1.0)
[2016-06-14] MEDS: INSULIN NovoLIN REGULAR SUPPLEMENTAL SCALE SQ SCH ×4 (06:00→17:10)
[2016-06-14] MEDS: SODIUM CHLORIDE 0.9% FLUSH 5 ML FLUSH FLUSH SCH ×2 (07:58→20:44)
[2016-06-14] MEDS: PHYTONADIONE 100 MCG PO SCH (07:59)
[2016-06-14] MEDS: LACTOBACILLUS ACIDOPHILUS 1 GM PACKET PO SCH ×4 (07:59→20:45)
[2016-06-14 08:00] VITALS: BP 141/84; PULSE 87; RESP 20; TEMP 97.2; O2SAT 100
--- NOTE | 2016-06-14 08:40 | HHI.PR ---
Subjective Remarks Pt seen and examined. Feels well. Had BM yesterday. Passing gas. Objective Vital Signs Vital Signs Date Time Temp Pulse Resp B/P Pulse Ox O2 Delivery O2 Flow Rate FiO2 06/14/16 05:42 16 06/14/16 05:42 16 06/14/16 04:56 16 06/14/16 00:00 96.8 90 16 142/70 98 06/13/16 23:14 18 06/13/16 22:00 16 06/13/16 20:00 98.3 100 18 166/90 99 06/13/16 18:07 20 06/13/16 16:00 97.8 94 20 141/85 99 06/13/16 13:33 20 06/13/16 13:14 18 06/13/16 12:00 97.4 113 20 155/99 96 I/O 06/13/16 06/13/16 06/13/16 06/14/16 06/14/16 06/14/16 07:00 15:00 23:00 07:00 15:00 23:00 Intake Total 830 ml 1464 ml 990 ml 800 ml Output Total 1203 ml 1200 ml 850 ml 250 ml Balance -373 ml 264 ml 140 ml 550 ml Intake Oral 30 ml 0 ml IV Total 200 ml 1064 ml 400 ml 400 ml TPN/PPN 350 ml 400 ml 340 ml 400 ml Lipid 250 ml 250 ml Output Urine Total 0 ml 1200 ml 850 ml 250 ml Stool Total 0 ml Gastric Drainage Total 0 ml Drainage Total 1203 ml # Bowel Movements 0 0 0 Result Diagram: 06/14/16 0500 06/14/16 0500 Objective Remarks Abd:soft,some tenderness, ND Blancas now with clear urine 06/03 Abd:soft,nd, mild tenderness Blancas: rahul urine 06/06 Abd:soft, tender on exam Urine: dark blood PCNT's both with bloody urine 06/07 Abd:soft,tender on exam Blancas irrigated at bedside; pink color PCNT's with bloody urine Ext: neg 06/08 CV: sinus tach Lungs: BS bilaterally Abd:soft, slight distension, NT Stoma: pink and viable; urine rahul B/L PCNT's: rahul urine Pelvic drain: bloody; minimal output Ext: 2+ edema 06/10 CV: sinus tach Lungs: BS bilaterally Abd: Distended, tender with palpation Stoma: pink and viable with clear urine B/L PNCT's with clear urine Ext: 2+ edema 06/11 Abd:soft,nd, some tenderness Stoma: pink and viable Ext: 2+ edema Clear urine from NT's and conduit 06/12 CV: sinus tach Lungs: CTA Abd: soft,nt,nd Stoma: pink and viable; urine clear PCNT's: urine clear Ext: 1+ edema 06/13 CV: RRR Lungs: CTA Abd: soft,some tenderness, no rebound Stoma: pink and viable Ext: neg Urine clear from NT's and conduit 06/14 CV: RRR Lungs: CTA Abd: soft,some tenderness, no rebound Stoma: pink and viable; urine clear Ext: neg PCNT's clamped Assessment and Plan Assessment and Plan 50 y.o male with muscle invasive bladder cancer with evidence of worsening adenopathy and hydronephrosis. Bone scan to r/o ronald metastasis. IR consult to place bilateral nephrostomy tubes to help improve renal function Options of treatment discussed with family: Continued chemotherapy with XRT vs palliative surgery. If bone scan is negative would recommend palliative cystectomy. Pt understands this is not curative but residential it would reduce readmissions and improve quality of life for now. Will need to correct anemia/thrombocytopenia and need to improve nutritional status. Will start TPN. Albumin is 2.4 at present. Hope to perform cystectomy next week. 06/03 50 y.o male with muscle invasive bladder cancer with evidence of worsening adenopathy and hydronephrosis. Bone scan negative for ronald metastasis. For bilateral PCNT's today Continue TPN For PICC line placement in near future 06/06 50 y.o male with muscle invasive bladder cancer For 2 more units of PRBC;s today PICC line today Replace K+ Continue TPN OR on Monday if Hgb at 10 or above 06/07 50 y.o male with muscle invasive bladder cancer 2 more units of PRBC's today for Hgb 7.9 Replace K OR in AM 06/08 Stable s/p Radical cystoprostatectomy with b/l PLND and ileal conduit creation Extubate today Ween of pressors as pt tolerates Continue TPN OOB tomorrow to chair if extubated 06/10 Stable s/p Radical Cystoprostatectomy with b/l PLND and ileal conduit POD#2 OOB to chair Replace Fentanyl drip with Dilaudid FUNERAL DIRECTOR/EMBALMER/OWNER if ok with aquatic ecologist Check Hgb later today; was 7.7 this AM; this may be dilutional Incentive sphirometer Continue TPN IVF changed to 1/2 NS at 50cc/hr PT consult 06/11 Stable s/p Radical Cystoprostatectomy with b/l PLND and ileal conduit POD#3 Hgb up to 8.5 s/p transfusion Continue with OOB/Rehab Will hold Lovenox in view of recent need for transfusion Continue TPN Will cap PCNT's in near future and if no evidence of ureteral conduit leak with remove tubes 06/12 Stable s/p Radical Cystoprostatectomy with b/l PLND and ileal conduit POD#4 OOB to chair Hgb stable at 8.3 Replace K+ Continue TPN Transfer to floor tomorrow 06/13 Stable s/p Radical Cystoprostatectomy with b/l PLND and ileal conduit POD#5 OOB to chair Cap PCNT's Continue TPN 06/14 Stable s/p Radical Cystoprostatectomy with b/l PLND and ileal conduit POD#6 OOB D/C blancas catheter Ostomy nurse consult OK to have ice chips Continue TPN Eulogio Lee DO Jun 14, 2016 08:40
[2016-06-14] MEDS: 1/2 NS + KCL 20 MEQ INJ 1,000 ML IV SCH (10:22)
[2016-06-14 11:47] VITALS: BP 152/88; PULSE 85; RESP 20; TEMP 98.7; O2SAT 99
[2016-06-14 16:00] VITALS: BP 148/85; PULSE 83; RESP 19; TEMP 97.3; O2SAT 99
[2016-06-14] MEDS: PANTOPRAZOLE SODIUM 40 MG VIAL IV PUSH SCH (17:09)
[2016-06-14] MEDS: FLUCONAZOLE 200 MG PREMIX BAG 100 ML IV SCH (17:09)
--- NOTE | 2016-06-14 17:19 | MP ---
cc: DOMENICO LEE DATE OF SURGERY: 06/08/2016 PREOPERATIVE DIAGNOSIS Muscle invasive bladder cancer with evidence of pelvic lymphadenopathy. POSTOPERATIVE DIAGNOSIS Muscle invasive bladder cancer with evidence of pelvic lymphadenopathy. PROCEDURE Radical cystoprostatectomy with bilateral pelvic lymph node dissection and creation of ileoconduit. SURGEON Dr. Lee. ACCOUNTS SPECIALIST Dr. Carter. FLUIDS DURING THE CASE 10 liters of crystalloid, 8 units of packed red blood cells, 4 units FFP, 1 unit of platelets and 100 ccs of albumin. BLOOD LOSS Blood loss was noted to be 4 liters. ANESTHESIA General endotracheal tube. SPECIMENS Bladder, prostate, right and left pelvic lymph nodes as well as distal ureteral margins were sent to pathology for frozen section. CONDITION The patient tolerated the procedure well, was stable throughout the case and was then transferred to the recovery room in stable condition. INDICATION Alexsander Henderson is a 50-year-old male who presented back in January 2016 and was noted to have gross hematuria. Dr. Sepulveda took the patient to the operating room, was unable to evacuate the clot and persistent bleeding was noted. He has taken to the OR at that time and underwent open bladder evacuation of clot. At the time there was a tumor identified at the dome of the bladder and the bladder was then closed and the suprapubic tube was left in place. The patient does have a history of neurogenic bladder. Postoperatively it was discovered that this was a muscle invasive bladder cancer based on the pathology at the time. He then underwent chemotherapy with Dr. Lee and presented over the last few weeks with worsening anemia and recent CT scan showed worsening pelvic adenopathy as well as bilateral hydronephrosis. He also was anemic during this admission and he required several transfusions. He also had bilateral percutaneous nephrostomy tubes placed in order to treat his acute renal failure due to obstruction from lymphadenopathy. These were placed and his creatinine came down from 2.9 to 1.3. His hemoglobin preoperatively was 11.2, up from 5.9 initially. Decision was made to take the patient to the operating room to undergo radical cystectomy with pelvic lymph node dissection and creation of ileoconduit. Given the large amount of lymphadenopathy and negative bone scan this was explained to the patient that this most likely was going to be a palliative procedure and would not be curable. Due to his recurrent admissions due to gross hematuria and anemia, decision was made to proceed with this procedure. Risk of and other complications were explained preoperatively to both him and his mother at the bedside. PROCEDURE The patient was brought to the operating room and identified by myself as Alexsander Santiago. He is placed in the supine position on the operating table, prepped and draped in usual sterile fashion, received preprocedure antibiotics. A PICC line had been placed preoperatively for vascular access. After he was prepped and draped in usual sterile fashion and underwent intubation via general anesthesia a 15 blade was used to make the opening incision extending from the umbilicus to the symphysis pubis. Stefany's and Camper's fascia were entered and the entire area was stuck down due to the prior surgery and also due to his disease. The bladder was inadvertently entered as it was stuck just under the fascia. On the right side there was a large tumor from within the bladder extending and there was a lot of pelvic lymphadenopathy on the right side. This was carefully dissected out using the Metzenbaum scissors, the right-angle clamp as well as the Bovie cautery. The external iliac artery and vein were both identified and the node packet was identified also. There was a large node in this area and it was delicately dissected out using the Metzenbaum scissors as well as Bovie cautery and the right angle. Clips were also used during this time. There was an attachment of the node to some vessels deep in the pelvis and upon removal of node we experienced some bleeding. Both the artery and the vein were identified. The artery was closed with a 4-0 Prolene after a right-angle clamp was placed on it and then the vein was then identified. Resuscitation needed to occur at this time via anesthesia as his pressure was in the 80 range. Once he was resuscitated and his pressure was in the 80s, using a set of large clips the bleeding vein was identified and it was clipped and hemostasis was then obtained. Then the dissection then occurred on the patient's left side of the bladder. This area was not as adherent as the right side. However, careful blunt dissection was performed. There was a large node also noted in the left external iliac fossa and this was carefully dissected off the vein and the artery. No bleeding was occurred at this time. Once the pelvic lymph nodes were dissected out bilaterally they were sent to pathology. At this point in time the bladder was freed up from its attachments superiorly and laterally. The inferior pedicles were then identified using the Ethicon stapler, the pedicles were then stapled. Once the pedicles were stapled at the base of the bladder, care was taken to avoid the rectum. The dorsal vein complex was then also stapled using the Ethicon stapler. Once all the pedicles were stapled the specimen was then dissected out from its remaining attachments and freed from the pelvis. Some bleeding was noted during this time. The dorsal vein complex was bleeding and 2-0 Vicryl suture was thrown in this area and hemostasis was obtained. Prior to removing the bladder enbloc the ureters were dissected out freely and tied off at the most distal aspect. This was done bilaterally and frozen specimens were taken of each distal ureter and sent to pathology and these were both negative. Once that was completed creation of the ileoconduit was then performed using a segment of terminal ileum approximately 10 cm away from the ileocecal valve, the bowel was mobilized and a 12 cm segment was then isolated and using the bowel stapler the bowel was then cut in two segments to create the conduit. Once those ends were stapled the remaining two areas of the distal bowel and proximal bowel were then re-anastomosed using a TA stapler and then the mesentery was then closed. Once that was done then stents were placed up both ureters and then bilateral ureteral conduit anastomosis was performed. The right ureter was attached to the more distal aspect of the ileoconduit and the left ureter was attached to the more proximal. This was done with a 4-0 Vicryl suture in a running fashion. At this point in time then the conduit was brought out to the skin. A small circular incision was made just above and lateral to the umbilicus to the rectus muscle and a cruciate type incision was made over the fascia. Using both my index finger, middle finger, I was able to tunnel through the rectus after the overlying fascia was then cut and to create a channel. The distal aspect of the conduit was then brought up through the channel and a small area approximately 1 cm was removed from the distal aspect of the bowel as it was slightly dusky at this time. The remaining bowel looked to be viable and then using interrupted 3-0 Vicryl sutures the fascia was then sewn to the sidewall of the bowel and tied down circumferentially. A [place] was then created and 3-0 Vicryl sutures were used then to tack down the [place]. The drains were coming through the [place] and a 14-Kinyarwanda rubber catheter was then inserted. The drains and the catheter were then anchored to the skin. Decision at this point was made to check for hemostasis. Hemostasis was identified. The entire abdomen was irrigated with water at this time and there was no evidence of any significant bleeding. Aubrie was used to dry up any areas that appeared to be slightly wet and once hemostasis was obtained, then using a #1 looped PDS suture the fascia was then closed. [place] were then used to close the skin and also a 20-Kinyarwanda Zuniga pelvic drain was left in place. Given that the patient had bilateral nephrostomy tubes in place these tubes remained in place throughout the entire procedure and were the source of his urine output. They will remain in for the next few days and be clamped later and removed. He will be transferred to the ICU. Domenico LAMB/TICO /5:04 PM /4:47 PM
[2016-06-14 20:00] VITALS: BP 148/92; PULSE 95; RESP 20; TEMP 98.6; O2SAT 100
[2016-06-14] MEDS: FAT EMULSION 20% INJ 250 ML (Daily over 8 hours) IV-CENTRAL SCH (20:26)
[2016-06-14] MEDS: CLINIMIX E 5/25 1000 mL- </= 42 mls/hr IV-CENTRAL SCH ×3 (20:38)
[2016-06-14] MEDS: DAPTOmycin INJ 320 MG in SODIUM CHLORIDE 0.9% INJ 100 ML IV SCH (20:44)
[2016-06-15] VITALS (7 sets, daily range): BP systolic 134–150; BP diastolic 70–83; PULSE 73–90; RESP 18–20; TEMP 97.5–98.6; O2SAT 96–99
[2016-06-15] MEDS: PCA - TOTAL MG DILAUDID DELIVERED PER SHIFT SCH ×4 (00:16→22:00)
[2016-06-15] MEDS: HYDROmorphone HCL PCA 6 MG/30 ML IV SCH ×2 (03:39→14:05)
[2016-06-15] MEDS: INSULIN NovoLIN REGULAR SUPPLEMENTAL SCALE SQ SCH ×4 (06:00→18:00)
[2016-06-15 06:01] LABS: HEMATOCRIT 25.3 % (39.0-51.0); MEAN CELL VOLUME 86.8 FL (80.0-100.0); MEAN CORPUSCULAR HEMOGLOBIN 29.4 PG (27.0-34.0); MEAN CORPUSCULAR HGB CONC 33.8 % (32.0-36.0); PLATELET COUNT 312 TH/MM3 (150-450); RED BLOOD COUNT 2.91 MIL/MM3 (4.50-5.90); REVIEW FLAG FINAL; WHITE BLOOD COUNT 9.4 TH/MM3 (4.0-11.0)
[2016-06-15 06:28] LABS: MAGNESIUM 1.9 MG/DL (1.5-2.5); POTASSIUM 4.2 MEQ/L (3.5-5.1)
[2016-06-15] MEDS: 1/2 NS + KCL 20 MEQ INJ 1,000 ML IV SCH (06:55)
--- NOTE | 2016-06-15 08:36 | HHI.PR ---
Subjective Remarks Pt seen and examined. Feels well. NG tube removed at bedside this AM Objective Vital Signs Vital Signs Date Time Temp Pulse Resp B/P Pulse Ox O2 Delivery O2 Flow Rate FiO2 06/15/16 08:00 97.6 78 20 150/82 99 06/15/16 06:54 16 06/15/16 04:00 98.6 81 18 136/70 98 06/15/16 03:39 16 06/15/16 00:16 16 06/15/16 00:00 97.6 90 19 142/78 99 06/14/16 20:52 18 06/14/16 20:00 98.6 95 20 148/92 100 06/14/16 16:14 20 06/14/16 16:00 97.3 83 19 148/85 99 06/14/16 15:44 20 06/14/16 14:00 22 06/14/16 11:47 98.7 85 20 152/88 99 06/14/16 10:19 22 I/O 06/14/16 06/14/16 06/14/16 06/15/16 06/15/16 06/15/16 07:00 15:00 23:00 07:00 15:00 23:00 Intake Total 800 ml 1482 ml 653 ml 0 ml 120 ml Output Total 250 ml 1200 ml 400 ml 700 ml Balance 550 ml 282 ml 253 ml -700 ml 120 ml Intake Oral 0 ml 0 ml 0 ml 120 ml IV Total 400 ml 804 ml 351 ml TPN/PPN 400 ml 678 ml 248 ml Lipid 54 ml Output Urine Total 250 ml 1200 ml 400 ml 350 ml Stool Total 350 ml # Bowel Movements 0 0 1 0 Result Diagram: 06/15/16 0545 06/15/16 0545 Objective Remarks Abd:soft,some tenderness, ND Blancas now with clear urine 06/03 Abd:soft,nd, mild tenderness Blancas: rahul urine 06/06 Abd:soft, tender on exam Urine: dark blood PCNT's both with bloody urine 06/07 Abd:soft,tender on exam Blancas irrigated at bedside; pink color PCNT's with bloody urine Ext: neg 06/08 CV: sinus tach Lungs: BS bilaterally Abd:soft, slight distension, NT Stoma: pink and viable; urine rahul B/L PCNT's: rahul urine Pelvic drain: bloody; minimal output Ext: 2+ edema 06/10 CV: sinus tach Lungs: BS bilaterally Abd: Distended, tender with palpation Stoma: pink and viable with clear urine B/L PNCT's with clear urine Ext: 2+ edema 06/11 Abd:soft,nd, some tenderness Stoma: pink and viable Ext: 2+ edema Clear urine from NT's and conduit 06/12 CV: sinus tach Lungs: CTA Abd: soft,nt,nd Stoma: pink and viable; urine clear PCNT's: urine clear Ext: 1+ edema 06/13 CV: RRR Lungs: CTA Abd: soft,some tenderness, no rebound Stoma: pink and viable Ext: neg Urine clear from NT's and conduit 06/14 CV: RRR Lungs: CTA Abd: soft,some tenderness, no rebound Stoma: pink and viable; urine clear Ext: neg PCNT's clamped 06/15 Abd:soft,nt,nd Stoma: pink and viable Ext: neg Assessment and Plan Assessment and Plan 50 y.o male with muscle invasive bladder cancer with evidence of worsening adenopathy and hydronephrosis. Bone scan to r/o ronald metastasis. IR consult to place bilateral nephrostomy tubes to help improve renal function Options of treatment discussed with family: Continued chemotherapy with XRT vs palliative surgery. If bone scan is negative would recommend palliative cystectomy. Pt understands this is not curative but jail it would reduce readmissions and improve quality of life for now. Will need to correct anemia/thrombocytopenia and need to improve nutritional status. Will start TPN. Albumin is 2.4 at present. Hope to perform cystectomy next week. 06/03 50 y.o male with muscle invasive bladder cancer with evidence of worsening adenopathy and hydronephrosis. Bone scan negative for ronald metastasis. For bilateral PCNT's today Continue TPN For PICC line placement in near future 06/06 50 y.o male with muscle invasive bladder cancer For 2 more units of PRBC;s today PICC line today Replace K+ Continue TPN OR on Monday if Hgb at 10 or above 06/07 50 y.o male with muscle invasive bladder cancer 2 more units of PRBC's today for Hgb 7.9 Replace K OR in AM 06/08 Stable s/p Radical cystoprostatectomy with b/l PLND and ileal conduit creation Extubate today Ween of pressors as pt tolerates Continue TPN OOB tomorrow to chair if extubated 06/10 Stable s/p Radical Cystoprostatectomy with b/l PLND and ileal conduit POD#2 OOB to chair Replace Fentanyl drip with Dilaudid ADULT BASIC EDUCATION MANAGER if ok with rubbish collection supervisor Check Hgb later today; was 7.7 this AM; this may be dilutional Incentive sphirometer Continue TPN IVF changed to 1/2 NS at 50cc/hr PT consult 06/11 Stable s/p Radical Cystoprostatectomy with b/l PLND and ileal conduit POD#3 Hgb up to 8.5 s/p transfusion Continue with OOB/Rehab Will hold Lovenox in view of recent need for transfusion Continue TPN Will cap PCNT's in near future and if no evidence of ureteral conduit leak with remove tubes 06/12 Stable s/p Radical Cystoprostatectomy with b/l PLND and ileal conduit POD#4 OOB to chair Hgb stable at 8.3 Replace K+ Continue TPN Transfer to floor tomorrow 06/13 Stable s/p Radical Cystoprostatectomy with b/l PLND and ileal conduit POD#5 OOB to chair Cap PCNT's Continue TPN 06/14 Stable s/p Radical Cystoprostatectomy with b/l PLND and ileal conduit POD#6 OOB D/C blancas catheter Ostomy nurse consult OK to have ice chips Continue TPN 06/15 Stable s/p Radical Cystoprostatectomy with b/l PLND and ileal conduit POD#7 NG tube out Clear liquid diet Stoma teaching-wound care consult OOB/Ambulate Eulogio Lee DO Jun 15, 2016 08:36
[2016-06-15] MEDS: PHYTONADIONE 100 MCG PO SCH (09:00)
[2016-06-15] MEDS: SODIUM CHLORIDE 0.9% FLUSH 5 ML FLUSH FLUSH SCH ×2 (10:00→19:50)
[2016-06-15] MEDS: LACTOBACILLUS ACIDOPHILUS 1 GM PACKET PO SCH ×4 (10:07→19:50)
--- NOTE | 2016-06-15 10:22 | PD.ONC.PN ---
Subjective Subjective Remarks Afebrile overnight. Pt just had his NG tube removed. He states he feels much better. He states he has been dizzy when getting OOB. 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 Objective Data Date Time Temp Pulse Resp B/P Pulse Ox O2 Delivery O2 Flow Rate FiO2 06/15/16 08:00 97.6 78 20 150/82 99 06/15/16 06:54 16 06/15/16 04:00 98.6 81 18 136/70 98 06/15/16 03:39 16 06/15/16 00:16 16 06/15/16 00:00 97.6 90 19 142/78 99 06/14/16 20:52 18 06/14/16 20:00 98.6 95 20 148/92 100 06/14/16 16:14 20 06/14/16 16:00 97.3 83 19 148/85 99 06/14/16 15:44 20 06/14/16 14:00 22 06/14/16 11:47 98.7 85 20 152/88 99 06/14/16 10:19 22 06/15/16 06/15/16 06/15/16 07:00 15:00 23:00 Intake Total 948 ml 120 ml Output Total 700 ml Balance 248 ml 120 ml Result Diagram: 06/15/16 0545 06/15/16 0545 Laboratory Results Laboratory Tests Test 06/15/16 05:45 White Blood Count 9.4 TH/MM3 Red Blood Count 2.91 MIL/MM3 Hemoglobin 8.6 GM/DL Hematocrit 25.3 % Mean Corpuscular Volume 86.8 FL Mean Corpuscular Hemoglobin 29.4 PG Mean Corpuscular Hemoglobin 33.8 % Concent Red Cell Distribution Width 15.0 % Platelet Count 312 TH/MM3 Mean Platelet Volume 7.6 FL Sodium Level 139 MEQ/L Potassium Level 4.2 MEQ/L Chloride Level 104 MEQ/L Carbon Dioxide Level 29.0 MEQ/L Anion Gap 6 MEQ/L Blood Urea Nitrogen 14 MG/DL Creatinine 0.81 MG/DL Estimat Glomerular Filtration 101 ML/MIN Rate Random Glucose 117 MG/DL Calcium Level 8.6 MG/DL Phosphorus Level 4.1 MG/DL Magnesium Level 1.9 MG/DL Administered Medications Medications (Trade) Dose Ordered Sig/Ambika Route PRN Reason Start Time Stop Time Status Last Admin Dose Admin Lactobacillus Acidophilus (Lactinex Pkt) 1 gm QID PO 06/01/16 13:00 06/15/16 10:07 IV Flush (NS Flush) 2 ml BID FLUSH 06/01/16 21:00 06/15/16 10:00 Acetaminophen (Tylenol) 650 mg Q4H PRN PO TEMP > 100.4 06/01/16 11:30 06/09/16 09:10 Pantoprazole Sodium (Protonix Inj) 40 mg Q24H IV PUSH 06/01/16 17:00 06/14/16 17:09 Hydromorphone HCl (Dilaudid Pf Inj) 1 mg Q4H PRN IV Pain 6-10;if unable to take PO 06/03/16 14:30 06/10/16 08:36 Hydromorphone HCl (Dilaudid Pf Inj) 1 mg Q4H PRN IV BREAKTHROUGH PAIN 06/03/16 14:30 06/09/16 03:43 Patient Own Medication 1 ea DAILY PO 06/04/16 09:00 06/12/16 09:00 Ondansetron HCl (Zofran Inj) 4 mg Q6H PRN IV PUSH nausea and vomiting 06/03/16 23:15 06/09/16 16:22 IV Flush (NS Flush) See Protocol DAILY IVF 06/07/16 09:00 06/15/16 10:01 Heparin Sodium (Porcine) (Heparin Central Flush) See Protocol DAILY IVF 06/07/16 09:00 06/15/16 10:01 Acetaminophen 650 mg 650 mg Q6H PRN RECTAL temp >100.6 06/08/16 16:30 06/09/16 13:31 Fluconazole/ Sodium Chloride (Diflucan 200 Mg Premix Bag) 100 ml @ 100 mls/hr Q24H IV 06/08/16 17:00 06/14/16 17:09 Heparin Sodium (Porcine) 100 units 100 units DAILY IV FLUSH 06/09/16 09:00 06/11/16 08:51 Propofol 100 ml @ 0 mls/hr TITRATE IV 06/08/16 17:30 06/09/16 07:18 Phenylephrine HCl 40 mg/Dextrose 500 ml @ 0 mls/hr TITRATE IV 06/08/16 17:30 06/09/16 07:19 Fat Emulsion Intravenous 250 ml @ 31.25 mls/ hr Q24H IV-CENTRAL 06/08/16 20:00 06/14/16 20:26 Fentanyl Citrate (fentaNYL DRIP) 250 ml @ 0 mls/hr TITRATE IV 06/08/16 22:00 06/09/16 23:48 Insulin Human Regular 1 1 Q6HR SQ 06/09/16 06:00 06/12/16 18:00 Multivitamins 10 ml/Folic Acid 1 mg/Amino Acids/ Electrolytes/ Dextrose 1,010.2 ml @ 42 mls/hr Q24H IV-CENTRAL 06/09/16 20:00 06/14/16 20:38 Potassium Chloride/Sodium Chloride (05/23 NS + KCl 20 Meq Inj) 1,000 ml @ 50 mls/hr Q20H IV 06/10/16 07:15 06/15/16 06:55 CLIENT SERVICE AND CONSULTING MANAGER Dosage Infused (Pha) 1 Q8HR .XX 06/10/16 14:00 06/15/16 06:54 Enoxaparin Sodium 40 mg 40 mg Q24H SQ 06/11/16 09:00 Hold 06/11/16 08:49 Daptomycin/Sodium Chloride (Cubicin Inj/NS Inj) 100 ml @ 200 mls/hr Q24H IV 06/11/16 21:00 06/14/16 20:44 Objective Remarks GENERAL: Middle aged male, sitting up in bed in no distress. SKIN: Warm and dry. Vertical incision to lower abdomen with amber in place. Well approximated. HEAD: Normocephalic. EYES: No injection or drainage. NECK: Supple, trachea midline. CARDIOVASCULAR: Regular rate and rhythm without murmurs. RESPIRATORY: Breath sounds equal bilaterally. No accessory muscle use. GASTROINTESTINAL: +BS. Urostomy in place to R side of abdomen. EXTREMITIES: No edema. NEUROLOGICAL: No obvious focal deficit. Awake, alert, and oriented x3. Assessment/Plan Problem List: (1) Invasive carcinoma of urinary bladder Status: Acute Plan: 06/15/16: Plan for adjuvant chemotherapy given positive lymph nodes. Pt will followup as an outpatient once healed from surgery. 06/13/16: d/w patient and family pathology results. patient will need adjuvant therapy once healed from surgery 06/10/16: hgb=7.7. patient will likely need transfusion, but will defer to occupational health physiotherapist. will check H/H this afternoon. 06/09/16: monitor hgb. await extubation s/p cystectomy 06/07/16: 3 units ordered by urology/pcp. will check H/H after blood transfused , order additional units if needed. 06/03/16: bone scan is negative, urology plans to proceed with palliative cystectomy next week. bilateral percutaneous nephrostomy tubes placed in IR today. Options of treatment discussed with family: Continued chemotherapy with XRT vs palliative surgery. If bone scan is negative would recommend palliative cystectomy. Pt understands this is not curative but bed bug exterminator it would reduce readmissions and improve quality of life for now. + hydronephrosis to account for acute renal failure, noted new adenopathy concerning for progression vs. reactive given new UTI with margareth and staph epidermidis. Assessment 50 y/o man with locally advance, muscle invasive bladder cancer with recurrent hematuria complicated by acute renal failure and BL hydronephrosis. Now s/p bilateral percutaneous nephrostomy tube placement. Plan 1. Pt will followup as an outpatient once healed from surgery. 2. We would recommend adjuvant chemotherapy. 3. Clear liquid diet today. 4. Monitor labs; supportive care. Attending Statement Discussed with RAKAN Goldstein. Noted pateint's progress post operatively. Continue to follow peripherally. Hilda Hickman Jun 15, 2016 10:22 Idalia Lee MD Jun 15, 2016 20:16
[2016-06-15] MEDS: PANTOPRAZOLE SODIUM 40 MG VIAL IV PUSH SCH (18:29)
[2016-06-15] MEDS: FLUCONAZOLE 200 MG PREMIX BAG 100 ML IV SCH (18:29)
[2016-06-15] MEDS: CLINIMIX E 5/25 1000 mL- </= 42 mls/hr IV-CENTRAL SCH ×3 (19:49)
[2016-06-15] MEDS: DAPTOmycin INJ 320 MG in SODIUM CHLORIDE 0.9% INJ 100 ML IV SCH (19:50)
[2016-06-15] MEDS: FAT EMULSION 20% INJ 250 ML (Daily over 8 hours) IV-CENTRAL SCH (19:50)
[2016-06-16] MEDS: 1/2 NS + KCL 20 MEQ INJ 1,000 ML IV SCH ×2 (03:02→22:45)
[2016-06-16 04:00] VITALS: BP 127/71; PULSE 71; RESP 18; TEMP 99; O2SAT 97
[2016-06-16 05:30] LABS: PROTHROMBIN TIME - PATIENT 11.4 SEC (9.8-11.6)
[2016-06-16 05:55] LABS: ALT (GPT) 22 U/L (12-78); ANION GAP 7 MEQ/L (5-15); AST (GOT) 27 U/L (15-37); BICARBONATE 28.3 MEQ/L (21.0-32.0); BLOOD UREA NITROGEN 12 MG/DL (7-18); CHLORIDE 106 MEQ/L (98-107); GLOMERULAR FILTRATION RATE 104 ML/MIN (>89); MAGNESIUM 1.9 MG/DL (1.5-2.5); POTASSIUM 4.2 MEQ/L (3.5-5.1); SODIUM (NA) 141 MEQ/L (136-145)
[2016-06-16 05:57] LABS: ALKALINE PHOSPHATASE 115 U/L (45-117); TOTAL BILIRUBIN ADULT 0.3 MG/DL (0.2-1.0)
[2016-06-16] MEDS: PCA - TOTAL MG DILAUDID DELIVERED PER SHIFT SCH ×3 (06:00→22:00)
[2016-06-16] MEDS: INSULIN NovoLIN REGULAR SUPPLEMENTAL SCALE SQ SCH ×4 (06:00→17:30)
[2016-06-16] MEDS: HYDROmorphone HCL PCA 6 MG/30 ML IV SCH ×3 (06:43→22:57)
[2016-06-16 08:00] VITALS: BP 125/73; PULSE 68; RESP 17; TEMP 97.4; O2SAT 98
--- NOTE | 2016-06-16 08:21 | HHI.PR ---
Subjective Remarks Pt seen and examined. Feeling well. Tolerating liquids. Objective Vital Signs Vital Signs Date Time Temp Pulse Resp B/P Pulse Ox O2 Delivery O2 Flow Rate FiO2 06/16/16 06:43 18 06/16/16 06:00 18 06/16/16 04:00 99.0 71 18 127/71 97 06/15/16 23:57 98.6 87 18 150/76 98 06/15/16 22:00 18 06/15/16 20:00 98.5 86 18 150/83 96 06/15/16 16:00 98.2 83 20 134/77 98 06/15/16 14:35 18 06/15/16 14:05 16 06/15/16 14:00 16 06/15/16 11:49 97.5 73 19 143/83 96 I/O 06/15/16 06/15/16 06/15/16 06/16/16 06/16/16 06/16/16 07:00 15:00 23:00 07:00 15:00 23:00 Intake Total 1188 ml 2205 ml 84 ml 1311 ml Output Total 2600 ml 600 ml 1350 ml 1400 ml Balance -1412 ml 1605 ml -1266 ml -89 ml Intake Oral 240 ml 880 ml 240 ml IV Total 407 ml 771 ml 36 ml 479 ml TPN/PPN 341 ml 554 ml 48 ml 342 ml Lipid 200 ml 250 ml Output Urine Total 2250 ml 600 ml 1350 ml 1400 ml Stool Total 350 ml # Bowel Movements 0 0 0 Result Diagram: 06/15/16 0545 06/16/16 0500 Objective Remarks Abd:soft,some tenderness, ND Blancas now with clear urine 06/03 Abd:soft,nd, mild tenderness Blancas: rahul urine 06/06 Abd:soft, tender on exam Urine: dark blood PCNT's both with bloody urine 06/07 Abd:soft,tender on exam Blancas irrigated at bedside; pink color PCNT's with bloody urine Ext: neg 06/08 CV: sinus tach Lungs: BS bilaterally Abd:soft, slight distension, NT Stoma: pink and viable; urine rahul B/L PCNT's: rahul urine Pelvic drain: bloody; minimal output Ext: 2+ edema 06/10 CV: sinus tach Lungs: BS bilaterally Abd: Distended, tender with palpation Stoma: pink and viable with clear urine B/L PNCT's with clear urine Ext: 2+ edema 06/11 Abd:soft,nd, some tenderness Stoma: pink and viable Ext: 2+ edema Clear urine from NT's and conduit 06/12 CV: sinus tach Lungs: CTA Abd: soft,nt,nd Stoma: pink and viable; urine clear PCNT's: urine clear Ext: 1+ edema 06/13 CV: RRR Lungs: CTA Abd: soft,some tenderness, no rebound Stoma: pink and viable Ext: neg Urine clear from NT's and conduit 06/14 CV: RRR Lungs: CTA Abd: soft,some tenderness, no rebound Stoma: pink and viable; urine clear Ext: neg PCNT's clamped 06/15 Abd:soft,nt,nd Stoma: pink and viable Ext: neg 06/16 Abd:soft,nt,nd Wound: clean and dry Stoma: pink and viable Ext: neg C/C/E Assessment and Plan Assessment and Plan 50 y.o male with muscle invasive bladder cancer with evidence of worsening adenopathy and hydronephrosis. Bone scan to r/o ronald metastasis. IR consult to place bilateral nephrostomy tubes to help improve renal function Options of treatment discussed with family: Continued chemotherapy with XRT vs palliative surgery. If bone scan is negative would recommend palliative cystectomy. Pt understands this is not curative but terminal supervisor it would reduce readmissions and improve quality of life for now. Will need to correct anemia/thrombocytopenia and need to improve nutritional status. Will start TPN. Albumin is 2.4 at present. Hope to perform cystectomy next week. 06/03 50 y.o male with muscle invasive bladder cancer with evidence of worsening adenopathy and hydronephrosis. Bone scan negative for ronald metastasis. For bilateral PCNT's today Continue TPN For PICC line placement in near future 06/06 50 y.o male with muscle invasive bladder cancer For 2 more units of PRBC;s today PICC line today Replace K+ Continue TPN OR on Monday if Hgb at 10 or above 06/07 50 y.o male with muscle invasive bladder cancer 2 more units of PRBC's today for Hgb 7.9 Replace K OR in AM 06/08 Stable s/p Radical cystoprostatectomy with b/l PLND and ileal conduit creation Extubate today Ween of pressors as pt tolerates Continue TPN OOB tomorrow to chair if extubated 06/10 Stable s/p Radical Cystoprostatectomy with b/l PLND and ileal conduit POD#2 OOB to chair Replace Fentanyl drip with Dilaudid 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 and ventilating tender Check Hgb later today; was 7.7 this AM; this may be dilutional Incentive sphirometer Continue TPN IVF changed to 1/2 NS at 50cc/hr PT consult 06/11 Stable s/p Radical Cystoprostatectomy with b/l PLND and ileal conduit POD#3 Hgb up to 8.5 s/p transfusion Continue with OOB/Rehab Will hold Lovenox in view of recent need for transfusion Continue TPN Will cap PCNT's in near future and if no evidence of ureteral conduit leak with remove tubes 06/12 Stable s/p Radical Cystoprostatectomy with b/l PLND and ileal conduit POD#4 OOB to chair Hgb stable at 8.3 Replace K+ Continue TPN Transfer to floor tomorrow 06/13 Stable s/p Radical Cystoprostatectomy with b/l PLND and ileal conduit POD#5 OOB to chair Cap PCNT's Continue TPN 06/14 Stable s/p Radical Cystoprostatectomy with b/l PLND and ileal conduit POD#6 OOB D/C blancas catheter Ostomy nurse consult OK to have ice chips Continue TPN 06/15 Stable s/p Radical Cystoprostatectomy with b/l PLND and ileal conduit POD#7 NG tube out Clear liquid diet Stoma teaching-wound care consult OOB/Ambulate 06/16 Stable s/p Radical Cystoprostatectomy with b/l PLND and ileal conduit POD#8 OOB and ambulate Continue liquid diet Eulogio Lee DO Jun 16, 2016 08:21
[2016-06-16] MEDS: PHYTONADIONE 100 MCG PO SCH (09:00)
[2016-06-16] MEDS: SODIUM CHLORIDE 0.9% FLUSH 5 ML FLUSH FLUSH SCH ×2 (09:48→19:22)
[2016-06-16] MEDS: LACTOBACILLUS ACIDOPHILUS 1 GM PACKET PO SCH ×4 (09:49→19:22)
[2016-06-16 12:00] VITALS: BP 125/79; PULSE 106; RESP 18; TEMP 98.1; O2SAT 98
[2016-06-16 16:00] VITALS: BP 152/73; PULSE 84; RESP 17; TEMP 96.9; O2SAT 98
[2016-06-16] MEDS: FLUCONAZOLE 200 MG PREMIX BAG 100 ML IV SCH (17:29)
[2016-06-16] MEDS: PANTOPRAZOLE SODIUM 40 MG VIAL IV PUSH SCH (17:30)
[2016-06-16] MEDS: FAT EMULSION 20% INJ 250 ML (Daily over 8 hours) IV-CENTRAL SCH (19:22)
[2016-06-16] MEDS: CLINIMIX E 5/25 1000 mL- </= 42 mls/hr IV-CENTRAL SCH ×3 (19:22)
[2016-06-16 20:00] VITALS: BP_SYST 138; BP_SYST 141; BP_DIAS 78; BP_DIAS 80; PULSE 85; PULSE 89; RESP 20; TEMP 97.5; TEMP 98; O2SAT 100; O2SAT 99
[2016-06-17] VITALS: BP 137/82; PULSE 88; RESP 20; TEMP 98; O2SAT 100
[2016-06-17 04:00] VITALS: BP 134/78; PULSE 80; RESP 18; TEMP 97.6; O2SAT 94
[2016-06-17 05:39] LABS: BICARBONATE 28.5 MEQ/L (21.0-32.0); MAGNESIUM 2.1 MG/DL (1.5-2.5); POTASSIUM 5.1 MEQ/L (3.5-5.1)
[2016-06-17] MEDS: PCA - TOTAL MG DILAUDID DELIVERED PER SHIFT SCH ×3 (06:00→22:00)
[2016-06-17] MEDS: INSULIN NovoLIN REGULAR SUPPLEMENTAL SCALE SQ SCH ×2 (06:00)
[2016-06-17 08:02] VITALS: BP 129/72; PULSE 75; RESP 18; TEMP 97.2; O2SAT 100
[2016-06-17] MEDS: PHYTONADIONE 100 MCG PO SCH (09:00)
[2016-06-17] MEDS: SODIUM CHLORIDE 0.9% FLUSH 5 ML FLUSH FLUSH SCH ×2 (09:00→20:07)
[2016-06-17] MEDS: LACTOBACILLUS ACIDOPHILUS 1 GM PACKET PO SCH ×4 (09:37→20:07)
[2016-06-17] MEDS: HYDROmorphone HCL PCA 6 MG/30 ML IV SCH ×2 (09:58→21:14)
--- NOTE | 2016-06-17 10:11 | HHI.FF ---
Face to Face Verification Diagnosis: (1) Invasive carcinoma of urinary bladder Home Health Nursing Order: Wound care and dressing changes Instructions: wound care and urostomy care I have seen patient Alexsander Henderson on 06/17/16. My clinical findings support the need for the requested home health care services because: ongoing needs to ensure pt is able to place appliance over urostomy site regrain strength help with ADL's Deconditioned w/ increased weakness I certify that my clinical findings support that this patient is homebound because: he has recovered from his major surgery Post-op weakness help with urostomy care and mangement as well as regain ADL's. Eulogio Lee DO Jun 17, 2016 10:11
--- NOTE | 2016-06-17 10:21 | HHI.PR ---
Subjective Remarks Pt OOB to chair. Feels well. No events. Objective Vital Signs Vital Signs Date Time Temp Pulse Resp B/P Pulse Ox O2 Delivery O2 Flow Rate FiO2 06/17/16 08:02 97.2 75 18 129/72 100 06/17/16 06:00 18 06/17/16 04:00 97.6 80 18 134/78 94 06/17/16 00:00 98.0 88 20 137/82 100 06/16/16 23:27 18 06/16/16 22:57 20 06/16/16 22:00 20 06/16/16 20:00 97.5 85 20 141/80 99 06/16/16 16:00 96.9 84 17 152/73 98 06/16/16 12:00 98.1 106 18 125/79 98 I/O 06/16/16 06/16/16 06/16/16 06/17/16 06/17/16 06/17/16 07:00 15:00 23:00 07:00 15:00 23:00 Intake Total 1311 ml 1524 ml 1077 ml 1318 ml Output Total 1400 ml 800 ml 500 ml 750 ml Balance -89 ml 724 ml 577 ml 568 ml Intake Oral 240 ml 680 ml 480 ml 480 ml IV Total 479 ml 463 ml 349 ml 346 ml TPN/PPN 342 ml 381 ml 248 ml 242 ml Lipid 250 ml 250 ml Output Urine Total 1400 ml 800 ml 500 ml 750 ml # Bowel Movements 0 0 0 0 Result Diagram: 06/15/16 0545 06/17/16 0455 Objective Remarks Abd:soft,some tenderness, ND Blancas now with clear urine 06/03 Abd:soft,nd, mild tenderness Blancas: rahul urine 06/06 Abd:soft, tender on exam Urine: dark blood PCNT's both with bloody urine 06/07 Abd:soft,tender on exam Blancas irrigated at bedside; pink color PCNT's with bloody urine Ext: neg 06/08 CV: sinus tach Lungs: BS bilaterally Abd:soft, slight distension, NT Stoma: pink and viable; urine rahul B/L PCNT's: rahul urine Pelvic drain: bloody; minimal output Ext: 2+ edema 06/10 CV: sinus tach Lungs: BS bilaterally Abd: Distended, tender with palpation Stoma: pink and viable with clear urine B/L PNCT's with clear urine Ext: 2+ edema 06/11 Abd:soft,nd, some tenderness Stoma: pink and viable Ext: 2+ edema Clear urine from NT's and conduit 06/12 CV: sinus tach Lungs: CTA Abd: soft,nt,nd Stoma: pink and viable; urine clear PCNT's: urine clear Ext: 1+ edema 06/13 CV: RRR Lungs: CTA Abd: soft,some tenderness, no rebound Stoma: pink and viable Ext: neg Urine clear from NT's and conduit 06/14 CV: RRR Lungs: CTA Abd: soft,some tenderness, no rebound Stoma: pink and viable; urine clear Ext: neg PCNT's clamped 06/15 Abd:soft,nt,nd Stoma: pink and viable Ext: neg 06/16 Abd:soft,nt,nd Wound: clean and dry Stoma: pink and viable Ext: neg C/C/E 06/17 Abd:soft, nt, nd, passing flatus Wound: clean and dry Stoma: pink and viable Ext: neg B/L PCNT's removed without difficulty Assessment and Plan Assessment and Plan 50 y.o male with muscle invasive bladder cancer with evidence of worsening adenopathy and hydronephrosis. Bone scan to r/o ronald metastasis. IR consult to place bilateral nephrostomy tubes to help improve renal function Options of treatment discussed with family: Continued chemotherapy with XRT vs palliative surgery. If bone scan is negative would recommend palliative cystectomy. 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 Will need to correct anemia/thrombocytopenia and need to improve nutritional status. Will start TPN. Albumin is 2.4 at present. Hope to perform cystectomy next week. 06/03 50 y.o male with muscle invasive bladder cancer with evidence of worsening adenopathy and hydronephrosis. Bone scan negative for ronald metastasis. For bilateral PCNT's today Continue TPN For PICC line placement in near future 06/06 50 y.o male with muscle invasive bladder cancer For 2 more units of PRBC;s today PICC line today Replace K+ Continue TPN OR on Monday if Hgb at 10 or above 06/07 50 y.o male with muscle invasive bladder cancer 2 more units of PRBC's today for Hgb 7.9 Replace K OR in AM 06/08 Stable s/p Radical cystoprostatectomy with b/l PLND and ileal conduit creation Extubate today Ween of pressors as pt tolerates Continue TPN OOB tomorrow to chair if extubated 06/10 Stable s/p Radical Cystoprostatectomy with b/l PLND and ileal conduit POD#2 OOB to chair Replace Fentanyl drip with Dilaudid 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 Check Hgb later today; was 7.7 this AM; this may be dilutional Incentive sphirometer Continue TPN IVF changed to 05/23 NS at 50cc/hr PT consult 06/11 Stable s/p Radical Cystoprostatectomy with b/l PLND and ileal conduit POD#3 Hgb up to 8.5 s/p transfusion Continue with OOB/Rehab Will hold Lovenox in view of recent need for transfusion Continue TPN Will cap PCNT's in near future and if no evidence of ureteral conduit leak with remove tubes 06/12 Stable s/p Radical Cystoprostatectomy with b/l PLND and ileal conduit POD#4 OOB to chair Hgb stable at 8.3 Replace K+ Continue TPN Transfer to floor tomorrow 06/13 Stable s/p Radical Cystoprostatectomy with b/l PLND and ileal conduit POD#5 OOB to chair Cap PCNT's Continue TPN 06/14 Stable s/p Radical Cystoprostatectomy with b/l PLND and ileal conduit POD#6 OOB D/C blancas catheter Ostomy nurse consult OK to have ice chips Continue TPN 06/15 Stable s/p Radical Cystoprostatectomy with b/l PLND and ileal conduit POD#7 NG tube out Clear liquid diet Stoma teaching-wound care consult OOB/Ambulate 06/16 Stable s/p Radical Cystoprostatectomy with b/l PLND and ileal conduit POD#8 OOB and ambulate Continue liquid diet 06/17 Stable s/p Radical Cystoprostatectomy with b/l PLND and ileal conduit POD#9 OOB/Ambulate Advance to Regular diet B/L PCNT's removed D/C TPN Will D/C BITUMEN PLANT OPERATOR in AM and change to PO pain medication Eulogio Lee DO Jun 17, 2016 10:21
[2016-06-17 12:02] VITALS: BP 124/70; PULSE 78; RESP 16; TEMP 97.2; O2SAT 99
[2016-06-17 16:30] VITALS: BP 118/74; PULSE 76; RESP 18; TEMP 97.4; O2SAT 97
[2016-06-17] MEDS: FLUCONAZOLE 200 MG PREMIX BAG 100 ML IV SCH (16:59)
[2016-06-17] MEDS: PANTOPRAZOLE SODIUM 40 MG VIAL IV PUSH SCH (16:59)
[2016-06-18] VITALS: BP 129/80; PULSE 80; RESP 18; TEMP 97; O2SAT 96
[2016-06-18 04:00] VITALS: BP 134/74; PULSE 74; RESP 20; TEMP 97.4; O2SAT 95
[2016-06-18] MEDS: PCA - TOTAL MG DILAUDID DELIVERED PER SHIFT SCH (06:00)
[2016-06-18] MEDS ORDERED: SODIUM CHLOR 0.45% 1000 ML INJ 1,000 ML IV SCH (07:15)
[2016-06-18] MEDS: SODIUM CHLORIDE 0.9% FLUSH 5 ML FLUSH FLUSH SCH ×2 (07:43→20:05)
[2016-06-18] MEDS: PHYTONADIONE 100 MCG PO SCH (07:43)
[2016-06-18] MEDS: LACTOBACILLUS ACIDOPHILUS 1 GM PACKET PO SCH ×4 (07:44→20:10)
[2016-06-18 08:00] VITALS: BP 117/67; PULSE 77; RESP 17; TEMP 97.9; O2SAT 97
[2016-06-18] MEDS: HYDROmorphone HCL PCA 6 MG/30 ML IV SCH (10:08)
--- NOTE | 2016-06-18 11:04 | HHI.PR ---
Subjective Remarks Pt seen and examined. Pain controlled. No events. Tolerating diet. Objective Vital Signs Vital Signs Date Time Temp Pulse Resp B/P Pulse Ox O2 Delivery O2 Flow Rate FiO2 06/18/16 10:46 18 06/18/16 10:08 20 06/18/16 08:00 97.9 77 17 117/67 97 06/18/16 04:00 97.4 74 20 134/74 95 06/18/16 00:00 97.0 80 18 129/80 96 06/17/16 16:30 97.4 76 18 118/74 97 06/17/16 12:02 97.2 78 16 124/70 99 I/O 06/17/16 06/17/16 06/17/16 06/18/16 06/18/16 06/18/16 07:00 15:00 23:00 07:00 15:00 23:00 Intake Total 1318 ml 1464 ml 580 ml 740 ml Output Total 750 ml 900 ml 600 ml 1100 ml Balance 568 ml 564 ml -20 ml -360 ml Intake Oral 480 ml 840 ml 480 ml 660 ml IV Total 346 ml 357 ml 100 ml 80 ml TPN/PPN 242 ml 267 ml Lipid 250 ml Output Urine Total 750 ml 900 ml 600 ml 1100 ml # Bowel Movements 0 0 0 0 Result Diagram: 06/15/16 0545 06/17/16 0455 Objective Remarks Abd:soft,some tenderness, ND Blancas now with clear urine 06/03 Abd:soft,nd, mild tenderness Blancas: rahul urine 06/06 Abd:soft, tender on exam Urine: dark blood PCNT's both with bloody urine 06/07 Abd:soft,tender on exam Blancas irrigated at bedside; pink color PCNT's with bloody urine Ext: neg 06/08 CV: sinus tach Lungs: BS bilaterally Abd:soft, slight distension, NT Stoma: pink and viable; urine rahul B/L PCNT's: rahul urine Pelvic drain: bloody; minimal output Ext: 2+ edema 06/10 CV: sinus tach Lungs: BS bilaterally Abd: Distended, tender with palpation Stoma: pink and viable with clear urine B/L PNCT's with clear urine Ext: 2+ edema 06/11 Abd:soft,nd, some tenderness Stoma: pink and viable Ext: 2+ edema Clear urine from NT's and conduit 06/12 CV: sinus tach Lungs: CTA Abd: soft,nt,nd Stoma: pink and viable; urine clear PCNT's: urine clear Ext: 1+ edema 06/13 CV: RRR Lungs: CTA Abd: soft,some tenderness, no rebound Stoma: pink and viable Ext: neg Urine clear from NT's and conduit 06/14 CV: RRR Lungs: CTA Abd: soft,some tenderness, no rebound Stoma: pink and viable; urine clear Ext: neg PCNT's clamped 06/15 Abd:soft,nt,nd Stoma: pink and viable Ext: neg 06/16 Abd:soft,nt,nd Wound: clean and dry Stoma: pink and viable Ext: neg C/C/E 06/17 Abd:soft, nt, nd, passing flatus Wound: clean and dry Stoma: pink and viable Ext: neg B/L PCNT's removed without difficulty 06/18 Abd:soft, nt, nd, passing flatus Wound: clean and dry Stoma: pink and viable Ext: neg Assessment and Plan Assessment and Plan 50 y.o male with muscle invasive bladder cancer with evidence of worsening adenopathy and hydronephrosis. Bone scan to r/o ronald metastasis. IR consult to place bilateral nephrostomy tubes to help improve renal function Options of treatment discussed with family: Continued chemotherapy with XRT vs palliative surgery. If bone scan is negative would recommend palliative cystectomy. 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 Will need to correct anemia/thrombocytopenia and need to improve nutritional status. Will start TPN. Albumin is 2.4 at present. Hope to perform cystectomy next week. 06/03 50 y.o male with muscle invasive bladder cancer with evidence of worsening adenopathy and hydronephrosis. Bone scan negative for ronald metastasis. For bilateral PCNT's today Continue TPN For PICC line placement in near future 06/06 50 y.o male with muscle invasive bladder cancer For 2 more units of PRBC;s today PICC line today Replace K+ Continue TPN OR on Monday if Hgb at 10 or above 06/07 50 y.o male with muscle invasive bladder cancer 2 more units of PRBC's today for Hgb 7.9 Replace K OR in AM 06/08 Stable s/p Radical cystoprostatectomy with b/l PLND and ileal conduit creation Extubate today Ween of pressors as pt tolerates Continue TPN OOB tomorrow to chair if extubated 06/10 Stable s/p Radical Cystoprostatectomy with b/l PLND and ileal conduit POD#2 OOB to chair Replace Fentanyl drip with Dilaudid 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 Check Hgb later today; was 7.7 this AM; this may be dilutional Incentive sphirometer Continue TPN IVF changed to 05/23 NS at 50cc/hr PT consult 06/11 Stable s/p Radical Cystoprostatectomy with b/l PLND and ileal conduit POD#3 Hgb up to 8.5 s/p transfusion Continue with OOB/Rehab Will hold Lovenox in view of recent need for transfusion Continue TPN Will cap PCNT's in near future and if no evidence of ureteral conduit leak with remove tubes 06/12 Stable s/p Radical Cystoprostatectomy with b/l PLND and ileal conduit POD#4 OOB to chair Hgb stable at 8.3 Replace K+ Continue TPN Transfer to floor tomorrow 06/13 Stable s/p Radical Cystoprostatectomy with b/l PLND and ileal conduit POD#5 OOB to chair Cap PCNT's Continue TPN 06/14 Stable s/p Radical Cystoprostatectomy with b/l PLND and ileal conduit POD#6 OOB D/C blancas catheter Ostomy nurse consult OK to have ice chips Continue TPN 06/15 Stable s/p Radical Cystoprostatectomy with b/l PLND and ileal conduit POD#7 NG tube out Clear liquid diet Stoma teaching-wound care consult OOB/Ambulate 06/16 Stable s/p Radical Cystoprostatectomy with b/l PLND and ileal conduit POD#8 OOB and ambulate Continue liquid diet 06/17 Stable s/p Radical Cystoprostatectomy with b/l PLND and ileal conduit POD#9 OOB/Ambulate Advance to Regular diet B/L PCNT's removed D/C TPN Will D/C PRIMER CHARGING TOOL SETTER in AM and change to PO pain medication 06/18 Stable s/p Radical Cystoprostatectomy with b/l PLND and ileal conduit POD# 10 OOB/Ambulate Tolerating Regular diet D/C PRIMER CHARGING TOOL SETTER P.O. Pain medication D/C home in next few days Eulogio Lee DO Jun 18, 2016 11:04
[2016-06-18] MEDS: ACETAMINOPHEN/HYDROcodone 325 MG/7.5 MG TAB PO PRN ×3 (11:59→20:06)
[2016-06-18 12:00] VITALS: BP 123/72; PULSE 80; RESP 17; TEMP 95.9; O2SAT 99
[2016-06-18 16:00] VITALS: BP 134/75; PULSE 98; RESP 17; TEMP 97.1; O2SAT 99
[2016-06-18] MEDS: PANTOPRAZOLE SODIUM 40 MG VIAL IV PUSH SCH (16:27)
[2016-06-18 20:00] VITALS: BP 132/72; PULSE 80; RESP 16; TEMP 97.4; O2SAT 99
[2016-06-19] VITALS: BP 138/77; PULSE 85; RESP 16; TEMP 96.7; O2SAT 99
[2016-06-19] MEDS: ACETAMINOPHEN/HYDROcodone 325 MG/7.5 MG TAB PO PRN ×3 (00:11→08:10)
[2016-06-19 04:55] LABS: BICARBONATE 26.5 MEQ/L (21.0-32.0); POTASSIUM 4.7 MEQ/L (3.5-5.1)
[2016-06-19 08:00] VITALS: BP 126/73; PULSE 77; RESP 17; TEMP 95.1; O2SAT 99
[2016-06-19] MEDS: SODIUM CHLORIDE 0.9% FLUSH 5 ML FLUSH FLUSH SCH ×2 (08:11→20:34)
[2016-06-19] MEDS: LACTOBACILLUS ACIDOPHILUS 1 GM PACKET PO SCH ×4 (08:13→20:33)
[2016-06-19] MEDS: PHYTONADIONE 100 MCG PO SCH (08:13)
[2016-06-19 12:00] VITALS: BP 131/72; PULSE 63; RESP 17; TEMP 95.3; O2SAT 98
[2016-06-19] MEDS: ACETAMINOPHEN/HYDROcodone 325 MG/10 MG TAB PO PRN ×3 (12:29→20:33)
--- NOTE | 2016-06-19 12:54 | HHI.PR ---
Subjective Remarks Pt seen and examined. Feels well. Some pain now off Dilaudid pump. Objective Vital Signs Vital Signs Date Time Temp Pulse Resp B/P Pulse Ox O2 Delivery O2 Flow Rate FiO2 06/19/16 12:00 95.3 63 17 131/72 98 06/19/16 09:10 20 06/19/16 08:00 95.1 77 17 126/73 99 06/19/16 00:00 96.7 85 16 138/77 99 06/18/16 20:00 97.4 80 16 132/72 99 06/18/16 16:00 97.1 98 17 134/75 99 I/O 06/18/16 06/18/16 06/18/16 06/19/16 06/19/16 06/19/16 07:00 15:00 23:00 07:00 15:00 23:00 Intake Total 740 ml 585 ml 360 ml 240 ml Output Total 1100 ml 1100 ml 400 ml 600 ml Balance -360 ml -515 ml -40 ml -360 ml Intake Oral 660 ml 340 ml 360 ml 240 ml IV Total 80 ml 245 ml 0 ml 0 ml Output Urine Total 1100 ml 1100 ml 400 ml 600 ml Stool Total 0 ml 0 ml # Bowel Movements 0 0 Result Diagram: 06/15/16 0545 06/19/16 0415 Objective Remarks Abd:soft,some tenderness, ND Blancas now with clear urine 06/03 Abd:soft,nd, mild tenderness Blancas: rahul urine 06/06 Abd:soft, tender on exam Urine: dark blood PCNT's both with bloody urine 06/07 Abd:soft,tender on exam Blancas irrigated at bedside; pink color PCNT's with bloody urine Ext: neg 06/08 CV: sinus tach Lungs: BS bilaterally Abd:soft, slight distension, NT Stoma: pink and viable; urine rahul B/L PCNT's: rahul urine Pelvic drain: bloody; minimal output Ext: 2+ edema 06/10 CV: sinus tach Lungs: BS bilaterally Abd: Distended, tender with palpation Stoma: pink and viable with clear urine B/L PNCT's with clear urine Ext: 2+ edema 06/11 Abd:soft,nd, some tenderness Stoma: pink and viable Ext: 2+ edema Clear urine from NT's and conduit 06/12 CV: sinus tach Lungs: CTA Abd: soft,nt,nd Stoma: pink and viable; urine clear PCNT's: urine clear Ext: 1+ edema 06/13 CV: RRR Lungs: CTA Abd: soft,some tenderness, no rebound Stoma: pink and viable Ext: neg Urine clear from NT's and conduit 06/14 CV: RRR Lungs: CTA Abd: soft,some tenderness, no rebound Stoma: pink and viable; urine clear Ext: neg PCNT's clamped 06/15 Abd:soft,nt,nd Stoma: pink and viable Ext: neg 06/16 Abd:soft,nt,nd Wound: clean and dry Stoma: pink and viable Ext: neg C/C/E 06/17 Abd:soft, nt, nd, passing flatus Wound: clean and dry Stoma: pink and viable Ext: neg B/L PCNT's removed without difficulty 06/18 Abd:soft, nt, nd, passing flatus Wound: clean and dry Stoma: pink and viable Ext: neg 06/19 Abd:soft,nt,nd Wound: clean and dry Stoma: pink and viable Ext: neg C/C/E Assessment and Plan Assessment and Plan 50 y.o male with muscle invasive bladder cancer with evidence of worsening adenopathy and hydronephrosis. Bone scan to r/o ronald metastasis. IR consult to place bilateral nephrostomy tubes to help improve renal function Options of treatment discussed with family: Continued chemotherapy with XRT vs palliative surgery. If bone scan is negative would recommend palliative cystectomy. Pt understands this is not curative but maintenance engineer it would reduce readmissions and improve quality of life for now. Will need to correct anemia/thrombocytopenia and need to improve nutritional status. Will start TPN. Albumin is 2.4 at present. Hope to perform cystectomy next week. 06/03 50 y.o male with muscle invasive bladder cancer with evidence of worsening adenopathy and hydronephrosis. Bone scan negative for ronald metastasis. For bilateral PCNT's today Continue TPN For PICC line placement in near future 06/06 50 y.o male with muscle invasive bladder cancer For 2 more units of PRBC;s today PICC line today Replace K+ Continue TPN OR on Monday if Hgb at 10 or above 06/07 50 y.o male with muscle invasive bladder cancer 2 more units of PRBC's today for Hgb 7.9 Replace K OR in AM 06/08 Stable s/p Radical cystoprostatectomy with b/l PLND and ileal conduit creation Extubate today Ween of pressors as pt tolerates Continue TPN OOB tomorrow to chair if extubated 06/10 Stable s/p Radical Cystoprostatectomy with b/l PLND and ileal conduit POD#2 OOB to chair Replace Fentanyl drip with Dilaudid HIDE MEASURING MACHINE OPERATOR if ok with playground aide Check Hgb later today; was 7.7 this AM; this may be dilutional Incentive sphirometer Continue TPN IVF changed to 05/23 NS at 50cc/hr PT consult 06/11 Stable s/p Radical Cystoprostatectomy with b/l PLND and ileal conduit POD#3 Hgb up to 8.5 s/p transfusion Continue with OOB/Rehab Will hold Lovenox in view of recent need for transfusion Continue TPN Will cap PCNT's in near future and if no evidence of ureteral conduit leak with remove tubes 06/12 Stable s/p Radical Cystoprostatectomy with b/l PLND and ileal conduit POD#4 OOB to chair Hgb stable at 8.3 Replace K+ Continue TPN Transfer to floor tomorrow 06/13 Stable s/p Radical Cystoprostatectomy with b/l PLND and ileal conduit POD#5 OOB to chair Cap PCNT's Continue TPN 06/14 Stable s/p Radical Cystoprostatectomy with b/l PLND and ileal conduit POD#6 OOB D/C blancas catheter Ostomy nurse consult OK to have ice chips Continue TPN 06/15 Stable s/p Radical Cystoprostatectomy with b/l PLND and ileal conduit POD#7 NG tube out Clear liquid diet Stoma teaching-wound care consult OOB/Ambulate 06/16 Stable s/p Radical Cystoprostatectomy with b/l PLND and ileal conduit POD#8 OOB and ambulate Continue liquid diet 06/17 Stable s/p Radical Cystoprostatectomy with b/l PLND and ileal conduit POD#9 OOB/Ambulate Advance to Regular diet B/L PCNT's removed D/C TPN Will D/C HIDE MEASURING MACHINE OPERATOR in AM and change to PO pain medication 06/18 Stable s/p Radical Cystoprostatectomy with b/l PLND and ileal conduit POD# 10 OOB/Ambulate Tolerating Regular diet D/C HIDE MEASURING MACHINE OPERATOR P.O. Pain medication D/C home in next few days 06/19 Stable s/p Radical Cystoprostatectomy with b/l PLND and ileal conduit POD# 11 OOB/Ambulate Continue Lortab 10 for pain Wound care to see pt in AM Discharge Monday or Monday Eulogio Lee DO Jun 19, 2016 12:54
[2016-06-19 16:00] VITALS: BP 121/84; PULSE 115; RESP 18; TEMP 96.6; O2SAT 98
[2016-06-19] MEDS: PANTOPRAZOLE SODIUM 40 MG VIAL IV PUSH SCH (16:32)
[2016-06-19 20:00] VITALS: BP 129/77; PULSE 85; RESP 16; TEMP 97.8; O2SAT 98
[2016-06-20] VITALS: BP 124/72; PULSE 95; RESP 18; TEMP 97.6; O2SAT 98
[2016-06-20] MEDS: ACETAMINOPHEN/HYDROcodone 325 MG/10 MG TAB PO PRN ×6 (00:47→22:15)
[2016-06-20 08:00] VITALS: BP 120/70; PULSE 76; RESP 17; TEMP 98.5; O2SAT 99
--- NOTE | 2016-06-20 08:39 | HHI.PR ---
Subjective Remarks Pt seen and examined. Feels well. Pain controlled Objective Vital Signs Vital Signs Date Time Temp Pulse Resp B/P Pulse Ox O2 Delivery O2 Flow Rate FiO2 06/20/16 00:00 97.6 95 18 124/72 98 06/19/16 20:00 97.8 85 16 129/77 98 06/19/16 17:38 19 06/19/16 16:00 96.6 115 18 121/84 98 06/19/16 12:00 95.3 63 17 131/72 98 06/19/16 09:10 20 I/O 06/19/16 06/19/16 06/19/16 06/20/16 06/20/16 06/20/16 07:00 15:00 23:00 07:00 15:00 23:00 Intake Total 240 ml 200 ml 240 ml 240 ml Output Total 600 ml 900 ml 400 ml 850 ml Balance -360 ml -700 ml -160 ml -610 ml Intake Oral 240 ml 200 ml 240 ml 240 ml IV Total 0 ml 0 ml 0 ml 0 ml Output Urine Total 600 ml 900 ml 400 ml 850 ml Stool Total 0 ml 0 ml # Bowel Movements 0 Result Diagram: 06/19/16 0415 Objective Remarks Abd:soft,some tenderness, ND Blancas now with clear urine 06/03 Abd:soft,nd, mild tenderness Blancas: rahul urine 06/06 Abd:soft, tender on exam Urine: dark blood PCNT's both with bloody urine 06/07 Abd:soft,tender on exam Blancas irrigated at bedside; pink color PCNT's with bloody urine Ext: neg 06/08 CV: sinus tach Lungs: BS bilaterally Abd:soft, slight distension, NT Stoma: pink and viable; urine rahul B/L PCNT's: rahul urine Pelvic drain: bloody; minimal output Ext: 2+ edema 06/10 CV: sinus tach Lungs: BS bilaterally Abd: Distended, tender with palpation Stoma: pink and viable with clear urine B/L PNCT's with clear urine Ext: 2+ edema 06/11 Abd:soft,nd, some tenderness Stoma: pink and viable Ext: 2+ edema Clear urine from NT's and conduit 06/12 CV: sinus tach Lungs: CTA Abd: soft,nt,nd Stoma: pink and viable; urine clear PCNT's: urine clear Ext: 1+ edema 06/13 CV: RRR Lungs: CTA Abd: soft,some tenderness, no rebound Stoma: pink and viable Ext: neg Urine clear from NT's and conduit 06/14 CV: RRR Lungs: CTA Abd: soft,some tenderness, no rebound Stoma: pink and viable; urine clear Ext: neg PCNT's clamped 06/15 Abd:soft,nt,nd Stoma: pink and viable Ext: neg 06/16 Abd:soft,nt,nd Wound: clean and dry Stoma: pink and viable Ext: neg C/C/E 06/17 Abd:soft, nt, nd, passing flatus Wound: clean and dry Stoma: pink and viable Ext: neg B/L PCNT's removed without difficulty 06/18 Abd:soft, nt, nd, passing flatus Wound: clean and dry Stoma: pink and viable Ext: neg 06/19 Abd:soft,nt,nd Wound: clean and dry Stoma: pink and viable Ext: neg C/C/E 06/20 Abd:soft,nt,nd Wound: clean and dry Stoma: pink and viable Ext: neg C/C/E Assessment and Plan Assessment and Plan 50 y.o male with muscle invasive bladder cancer with evidence of worsening adenopathy and hydronephrosis. Bone scan to r/o ronald metastasis. IR consult to place bilateral nephrostomy tubes to help improve renal function Options of treatment discussed with family: Continued chemotherapy with XRT vs palliative surgery. If bone scan is negative would recommend palliative cystectomy. 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 Will need to correct anemia/thrombocytopenia and need to improve nutritional status. Will start TPN. Albumin is 2.4 at present. Hope to perform cystectomy next week. 06/03 50 y.o male with muscle invasive bladder cancer with evidence of worsening adenopathy and hydronephrosis. Bone scan negative for ronald metastasis. For bilateral PCNT's today Continue TPN For PICC line placement in near future 06/06 50 y.o male with muscle invasive bladder cancer For 2 more units of PRBC;s today PICC line today Replace K+ Continue TPN OR on Monday if Hgb at 10 or above 06/07 50 y.o male with muscle invasive bladder cancer 2 more units of PRBC's today for Hgb 7.9 Replace K OR in AM 06/08 Stable s/p Radical cystoprostatectomy with b/l PLND and ileal conduit creation Extubate today Ween of pressors as pt tolerates Continue TPN OOB tomorrow to chair if extubated 06/10 Stable s/p Radical Cystoprostatectomy with b/l PLND and ileal conduit POD#2 OOB to chair Replace Fentanyl drip with Dilaudid ENGINEERING TECHNOLOGY INSTRUCTOR if ok with production engineer track Check Hgb later today; was 7.7 this AM; this may be dilutional Incentive sphirometer Continue TPN IVF changed to 05/23 NS at 50cc/hr PT consult 06/11 Stable s/p Radical Cystoprostatectomy with b/l PLND and ileal conduit POD#3 Hgb up to 8.5 s/p transfusion Continue with OOB/Rehab Will hold Lovenox in view of recent need for transfusion Continue TPN Will cap PCNT's in near future and if no evidence of ureteral conduit leak with remove tubes 06/12 Stable s/p Radical Cystoprostatectomy with b/l PLND and ileal conduit POD#4 OOB to chair Hgb stable at 8.3 Replace K+ Continue TPN Transfer to floor tomorrow 06/13 Stable s/p Radical Cystoprostatectomy with b/l PLND and ileal conduit POD#5 OOB to chair Cap PCNT's Continue TPN 06/14 Stable s/p Radical Cystoprostatectomy with b/l PLND and ileal conduit POD#6 OOB D/C blancas catheter Ostomy nurse consult OK to have ice chips Continue TPN 06/15 Stable s/p Radical Cystoprostatectomy with b/l PLND and ileal conduit POD#7 NG tube out Clear liquid diet Stoma teaching-wound care consult OOB/Ambulate 06/16 Stable s/p Radical Cystoprostatectomy with b/l PLND and ileal conduit POD#8 OOB and ambulate Continue liquid diet 06/17 Stable s/p Radical Cystoprostatectomy with b/l PLND and ileal conduit POD#9 OOB/Ambulate Advance to Regular diet B/L PCNT's removed D/C TPN Will D/C ENGINEERING TECHNOLOGY INSTRUCTOR in AM and change to PO pain medication 06/18 Stable s/p Radical Cystoprostatectomy with b/l PLND and ileal conduit POD# 10 OOB/Ambulate Tolerating Regular diet D/C ENGINEERING TECHNOLOGY INSTRUCTOR P.O. Pain medication D/C home in next few days 06/19 Stable s/p Radical Cystoprostatectomy with b/l PLND and ileal conduit POD# 11 OOB/Ambulate Continue Lortab 10 for pain Wound care to see pt in AM Discharge Monday or Tuesday 06/20 Stable s/p Radical Cystoprostatectomy with b/l PLND and ileal conduit POD# 12 OOB/Ambulate Continue Lortab 10 for pain Wound care to see pt Discharge tomorrow AM Eulogio Lee DO Jun 20, 2016 08:39
[2016-06-20] MEDS: SODIUM CHLORIDE 0.9% FLUSH 5 ML FLUSH FLUSH SCH ×2 (08:53→22:15)
[2016-06-20] MEDS: LACTOBACILLUS ACIDOPHILUS 1 GM PACKET PO SCH ×4 (08:57→21:00)
[2016-06-20] MEDS: PHYTONADIONE 100 MCG PO SCH (09:00)
[2016-06-20 12:00] VITALS: BP 123/68; PULSE 78; RESP 18; TEMP 98.3; O2SAT 100
[2016-06-20 16:00] VITALS: BP 126/73; PULSE 83; RESP 17; TEMP 98.1; O2SAT 100
[2016-06-20] MEDS: PANTOPRAZOLE SODIUM 40 MG VIAL IV PUSH SCH (17:00)
[2016-06-20 20:00] VITALS: BP 155/84; PULSE 96; RESP 20; TEMP 98; O2SAT 100
[2016-06-21] VITALS: BP 138/82; PULSE 89; RESP 20; TEMP 97.2; O2SAT 98
[2016-06-21] MEDS: ACETAMINOPHEN/HYDROcodone 325 MG/10 MG TAB PO PRN ×3 (02:22→10:21)
[2016-06-21 08:00] VITALS: BP 127/74; PULSE 78; RESP 20; TEMP 97.7; O2SAT 98
--- NOTE | 2016-06-21 08:25 | HHI.PR ---
Subjective Remarks Pt ready for discharge. Feels well. Objective Vital Signs Vital Signs Date Time Temp Pulse Resp B/P Pulse Ox O2 Delivery O2 Flow Rate FiO2 06/21/16 00:00 97.2 89 20 138/82 98 06/20/16 20:00 98.0 96 20 155/84 100 06/20/16 16:00 98.1 83 17 126/73 100 06/20/16 12:00 98.3 78 18 123/68 100 I/O 06/20/16 06/20/16 06/20/16 06/21/16 06/21/16 06/21/16 07:00 15:00 23:00 07:00 15:00 23:00 Intake Total 240 ml 360 ml 480 ml 240 ml Output Total 850 ml 500 ml 1600 ml 1200 ml Balance -610 ml -140 ml -1120 ml -960 ml Intake Oral 240 ml 360 ml 480 ml 240 ml IV Total 0 ml Output Urine Total 850 ml 500 ml 1600 ml 1200 ml # Bowel Movements 0 0 0 Result Diagram: 06/19/16 0415 Objective Remarks Abd:soft,some tenderness, ND Blancas now with clear urine 06/03 Abd:soft,nd, mild tenderness [place]as: rahul urine 06/06 Abd:soft, tender on exam Urine: dark blood PCNT's both with bloody urine 06/07 Abd:soft,tender on exam Blancas irrigated at bedside; pink color PCNT's with bloody urine Ext: neg 06/08 CV: sinus tach Lungs: BS bilaterally Abd:soft, slight distension, NT Stoma: pink and viable; urine rahul B/L PCNT's: rahul urine Pelvic drain: bloody; minimal output Ext: 2+ edema 06/10 CV: sinus tach Lungs: BS bilaterally Abd: Distended, tender with palpation Stoma: pink and viable with clear urine B/L PNCT's with clear urine Ext: 2+ edema 06/11 Abd:soft,nd, some tenderness Stoma: pink and viable Ext: 2+ edema Clear urine from NT's and conduit 06/12 CV: sinus tach Lungs: CTA Abd: soft,nt,nd Stoma: pink and viable; urine clear PCNT's: urine clear Ext: 1+ edema 06/13 CV: RRR Lungs: CTA Abd: soft,some tenderness, no rebound Stoma: pink and viable Ext: neg Urine clear from NT's and conduit 06/14 CV: RRR Lungs: CTA Abd: soft,some tenderness, no rebound Stoma: pink and viable; urine clear Ext: neg PCNT's clamped 06/15 Abd:soft,nt,nd Stoma: pink and viable Ext: neg 06/16 Abd:soft,nt,nd Wound: clean and dry Stoma: pink and viable Ext: neg C/C/E 06/17 Abd:soft, nt, nd, passing flatus Wound: clean and dry Stoma: pink and viable Ext: neg B/L PCNT's removed without difficulty 06/18 Abd:soft, nt, nd, passing flatus Wound: clean and dry Stoma: pink and viable Ext: neg 06/19 Abd:soft,nt,nd Wound: clean and dry Stoma: pink and viable Ext: neg C/C/E 06/20 Abd:soft,nt,nd Wound: clean and dry Stoma: pink and viable Ext: neg C/C/E 06/21 Abd:soft,nt,nt Stoma: pink and viable Assessment and Plan Assessment and Plan 50 y.o male with muscle invasive bladder cancer with evidence of worsening adenopathy and hydronephrosis. Bone scan to r/o ronald metastasis. IR consult to place bilateral nephrostomy tubes to help improve renal function Options of treatment discussed with family: Continued chemotherapy with XRT vs palliative surgery. If bone scan is negative would recommend palliative cystectomy. Pt understands this is not curative but extermination inspector it would reduce readmissions and improve quality of life for now. Will need to correct anemia/thrombocytopenia and need to improve nutritional status. Will start TPN. Albumin is 2.4 at present. Hope to perform cystectomy next week. 06/03 50 y.o male with muscle invasive bladder cancer with evidence of worsening adenopathy and hydronephrosis. Bone scan negative for ronald metastasis. For bilateral PCNT's today Continue TPN For PICC line placement in near future 06/06 50 y.o male with muscle invasive bladder cancer For 2 more units of PRBC;s today PICC line today Replace K+ Continue TPN OR on Monday if Hgb at 10 or above 06/07 50 y.o male with muscle invasive bladder cancer 2 more units of PRBC's today for Hgb 7.9 Replace K OR in AM 06/08 Stable s/p Radical cystoprostatectomy with b/l PLND and ileal conduit creation Extubate today Ween of pressors as pt tolerates Continue TPN OOB tomorrow to chair if extubated 06/10 Stable s/p Radical Cystoprostatectomy with b/l PLND and ileal conduit POD#2 OOB to chair Replace Fentanyl drip with Dilaudid FISH HOUSEKEEPER if ok with watermelon harvesting supervisor Check Hgb later today; was 7.7 this AM; this may be dilutional Incentive sphirometer Continue TPN IVF changed to 05/23 NS at 50cc/hr PT consult 06/11 Stable s/p Radical Cystoprostatectomy with b/l PLND and ileal conduit POD#3 Hgb up to 8.5 s/p transfusion Continue with OOB/Rehab Will hold Lovenox in view of recent need for transfusion Continue TPN Will cap PCNT's in near future and if no evidence of ureteral conduit leak with remove tubes 06/12 Stable s/p Radical Cystoprostatectomy with b/l PLND and ileal conduit POD#4 OOB to chair Hgb stable at 8.3 Replace K+ Continue TPN Transfer to floor tomorrow 06/13 Stable s/p Radical Cystoprostatectomy with b/l PLND and ileal conduit POD#5 OOB to chair Cap PCNT's Continue TPN 06/14 Stable s/p Radical Cystoprostatectomy with b/l PLND and ileal conduit POD#6 OOB D/C blancas catheter Ostomy nurse consult OK to have ice chips Continue TPN 06/15 Stable s/p Radical Cystoprostatectomy with b/l PLND and ileal conduit POD#7 NG tube out Clear liquid diet Stoma teaching-wound care consult OOB/Ambulate 06/16 Stable s/p Radical Cystoprostatectomy with b/l PLND and ileal conduit POD#8 OOB and ambulate Continue liquid diet 06/17 Stable s/p Radical Cystoprostatectomy with b/l PLND and ileal conduit POD#9 OOB/Ambulate Advance to Regular diet B/L PCNT's removed D/C TPN Will D/C FISH HOUSEKEEPER in AM and change to PO pain medication 06/18 Stable s/p Radical Cystoprostatectomy with b/l PLND and ileal conduit POD# 10 OOB/Ambulate Tolerating Regular diet D/C FISH HOUSEKEEPER P.O. Pain medication D/C home in next few days 06/19 Stable s/p Radical Cystoprostatectomy with b/l PLND and ileal conduit POD# 11 OOB/Ambulate Continue Lortab 10 for pain Wound care to see pt in AM Discharge Monday or Tuesday 06/20 Stable s/p Radical Cystoprostatectomy with b/l PLND and ileal conduit POD# 12 OOB/Ambulate Continue Lortab 10 for pain Wound care to see pt Discharge tomorrow AM 06/21 Stable s/p Radical Cystoprostatectomy with b/l PLND and ileal conduit POD# 13 D/C home Remove PICC line and d/c amber F/U in office in 2 weeks for stent removal Eulogio Lee DO Jun 21, 2016 08:25
[2016-06-21] MEDS: LACTOBACILLUS ACIDOPHILUS 1 GM PACKET PO SCH (08:31)
[2016-06-21] MEDS: SODIUM CHLORIDE 0.9% FLUSH 5 ML FLUSH FLUSH SCH (08:49)
[2016-06-21] MEDS: PHYTONADIONE 100 MCG PO SCH (09:00)
[2016-06-21 11:21] VITALS: RESP 18
--- NOTE | 2016-06-23 15:35 | MB ---
cc: DOMENICO COKER DATE OF CONSULTATION: 06/01/2016 ADDENDUM TO CONSULTATION: Please on the consult with a review of systems are located at the end please say all other systems were reviewed and are negative. Domenico LAMB/aranza /1:24 PM /3:33 PM
--- NOTE | 2016-06-27 13:08 | MD ---
cc: DOMENICO COKER ADMISSION DATE: 06/02/2016 DISCHARGE DATE: 06/21/2016 Mr. Alexsander Henderson is a 50-year-old male with history of muscle invasive bladder cancer with pelvic adenopathy. He was admitted with significant bleeding and hematuria on admission and was found to be in acute renal failure with a creatinine of 2.9. He underwent placement of bilateral percutaneous nephrostomy tubes and then his creatinine normalized. He underwent radical cystoprostatectomy with bilateral pelvic lymph node dissection and creation of an ileal conduit on 06/08/2016. He went on to have an uneventful hospital course. He was initially started on TPN to provide nutritional support. He had AN NG tube which remained in for about a week and then was removed after he started moving his bowels and passing gas. He did require some blood transfusion postop and also preoperatively to maintain a hemoglobin above the 10 range. Oncology was also consulted during his admission and he did receive neoadjuvant chemotherapy preoperatively. After his surgery there was no evidence of any complications or problems. He was moving his bowels at the time of discharge, tolerating his regular diet and his pain was controlled. Physical therapy had cleared him for discharge. DISCHARGE INSTRUCTIONS The patient was given instructions concerning diet, exercise medication and was scheduled to follow up in 2 weeks in the office to have his ureteral stents removed, to follow up with Dr. Lee of Oncology to received more chemotherapy in the future in approximately one month. Domenico LAMB/YAN /8:28 AM /1:03 PM
== END 2016-06-21 12:15 | disposition home or self-care (01) | DRG 653 ==
LOC: NEPE 08:24 → NEDA 11:21 → NEPGCP 14:08 → HOCA 21:53 → OBSVTOIN 06-02 09:45 → HCIN 06-04 06:00 → N03B 06-08 17:45 → N03A 06-08 21:00 → N07A 06-13 01:20
PROVIDERS: ADMIT Internal Medicine Critical Care Medicine; ATTEND Internal Medicine Critical Care Medicine
PROC: 0T9130Z Drainage of Left Kidney with Drainage Device, Percutaneous Approach (ICD-10-PCS; 2016-06-03)
PROC: 0T9030Z Drainage of Right Kidney with Drainage Device, Percutaneous Approach (ICD-10-PCS; 2016-06-03)
PROC: 30233N1 Transfusion of Nonautologous Red Blood Cells into Peripheral Vein, Percutaneous Approach (ICD-10-PCS; 2016-06-05)
PROC: 0TTB0ZZ Resection of Bladder, Open Approach (ICD-10-PCS; 2016-06-08)
PROC: 07BC0ZX Excision of Pelvis Lymphatic, Open Approach, Diagnostic (ICD-10-PCS; 2016-06-08)
PROC: 0T180ZC Bypass Bilateral Ureters to Ileocutaneous, Open Approach (ICD-10-PCS; 2016-06-08)
PROC: 30233K1 Transfusion of Nonautologous Frozen Plasma into Peripheral Vein, Percutaneous Approach (ICD-10-PCS; 2016-06-08)
PROC: 30233R1 Transfusion of Nonautologous Platelets into Peripheral Vein, Percutaneous Approach (ICD-10-PCS; 2016-06-08)
PROC: 5A1935Z Respiratory Ventilation, Less than 24 Consecutive Hours (ICD-10-PCS; 2016-06-08)
PROC: 0VT00ZZ Resection of Prostate, Open Approach (ICD-10-PCS; principal; 2016-06-08 08:01)
DX: C67.9 Malignant neoplasm of bladder, unspecified (principal); J95.2 Acute pulmonary insufficiency following nonthoracic surgery; R57.1 Hypovolemic shock; N17.9 Acute kidney failure, unspecified; C77.5 Secondary and unspecified malignant neoplasm of intrapelvic lymph nodes; N30.01 Acute cystitis with hematuria; N13.30 Unspecified hydronephrosis; D62 Acute posthemorrhagic anemia; E44.1 Mild protein-calorie malnutrition; B37.49 Other urogenital candidiasis; D64.81 Anemia due to antineoplastic chemotherapy; N31.9 Neuromuscular dysfunction of bladder, unspecified; R62.7 Adult failure to thrive; I12.9 Hypertensive chronic kidney disease with stage 1 through stage 4 chronic kidney disease, or unspecified chronic kidney disease; N18.9 Chronic kidney disease, unspecified; R11.2 Nausea with vomiting, unspecified; F41.9 Anxiety disorder, unspecified; F17.210 Nicotine dependence, cigarettes, uncomplicated; G89.29 Other chronic pain; M54.9 Dorsalgia, unspecified; Z87.440 Personal history of urinary (tract) infections; Z80.7 Family history of other malignant neoplasms of lymphoid, hematopoietic and related tissues; T45.1X5A Adverse effect of antineoplastic and immunosuppressive drugs, initial encounter; G89.18 Other acute postprocedural pain; N32.0 Bladder-neck obstruction; R73.9 Hyperglycemia, unspecified
CPT/HCPCS: 36430; 36569; 36584; 50432; 71010; 74000; 74176; 76937; 78306; 80048; 80053; 80170; 81001; 82150; 82805; 82948; 83605; 83690; 83735; 84100; 84132; 84478; 85007; 85014; 85018; 85025; 85027; 85384; 85610; 85730; 86850; 86900; 86901; 86920; 86927; 87040; 87086; 88305; 88307; 88309; 88331; 93005; 93971; 94002; 94003; 94150; 94640; 94664; 96361; 96374; 96375; 99152; 99153; A9503; C1729; C1769; C1894; C2617; C9113; G0378; G8987-GP; G8988-GP; J0131; J0290; J0690; J0878; J1100; J1170; J1450; J1580; J1642; J1644; J1650; J1940; J1956; J2060; J2250; J2270; J2370; J2405; J3010; J3480; J7030; J7040; J7050; J7060; J7120; P9016; P9017; P9031; P9047; Q9967

== ENCOUNTER → 2016-07-13 | Outpatient (CLI) | payer OTHER ==
[~2016-07-13] MED LIST changes: -DIFL200T PO; -DOXY100C PO; +IOHEXOL 350 MG/ML 10 ML VIAL (for RAD DIAG) IV ONE; -LACTG PO
--- NOTE | 2016-07-13 14:48 | RADRPT ---
EXAM DATE/TIME: 07/13/2016 13:43 [facility] COMPARISON: CT THORAX W CONTRAST, April 11, 2016, 14:13. CHEST SINGLE AP, June 09, 2016, 2:34. INDICATIONS : Evaluate for metastatic disease. IV CONTRAST: 100 cc Omnipaque 350 (iohexol) IV ; Cumulative dose for multiple exams. RADIATION DOSE: 10.16 CTDIvol (mGy) ; Combined studies - Thorax/Abdomen/Pelvis MEDICAL HISTORY : Carcinoma, bladder. Hypertension. Neurogenic bladder. Spinal cord tumor. SURGICAL HISTORY : None. ENCOUNTER: Initial ACUITY: 1 day PAIN SCALE: 0/10 LOCATION: chest TECHNIQUE: Volumetric scanning of the chest was performed. Using automated exposure control and adjustment of t he mA and/or kV according to patient size, radiation dose was kept as low as reasonably achievable to obtain optimal diagnostic quality images. FINDINGS: LUNGS: There is no consolidation or pneumothorax. 25 mm right upper lobe pulmonary nodules are stable. Ther e is a new 5 mm nodule subpleural posterior left base just adjacent to the hemidiaphragm. PLEURA: There is no pleural thickening or pleural effusion. MEDIASTINUM: The heart and great vessels demonstrate no acute abnormality. There is no mediastinal or hilar lymph adenopathy. AXILLAE: Within normal limits. No lymphadenopathy. SKELETAL: Within normal limits for patient age. MISCELLANEOUS: The visualized upper abdominal organs demonstrate no acute abnormality. 3 new low density lesions in the liver largest in the right lobe towards the dome 2 cm in size. CONCLUSION: 2 stable 5 mm right upper lobe anterior segment pulmonary nodules. New 5 mm left lower lobe posterior 5 mm nodule. Additionally there are 3 new low density lesions in the liver. Findings are consistent with metastatic disease. Rohan Coats MD on July 13, 2016 at 14:42 Board Certified Radiologist. This report was verified electronically.
--- NOTE | 2016-07-13 14:55 | RADRPT ---
EXAM DATE/TIME: 07/13/2016 13:43 [facility] COMPARISON: CT ABDOMEN & PELVIS W CONTRAST, April 11, 2016, 14:13. INDICATIONS : Diffuse abdominal pain. History of bladder cancer. IV CONTRAST: 100 cc Omnipaque 350 (iohexol) IV ; Cumulative dose for multiple exams. ORAL CONTRAST: Prescribed oral contrast ingested. RADIATION DOSE: 10.16 CTDIvol (mGy) ; Combined studies - Thorax/Abdomen/Pelvis MEDICAL HISTORY : Carcinoma, bladder. Hypertension. Neurogenic bladder. Spinal cord tumor. SURGICAL HISTORY : None. ENCOUNTER: Initial ACUITY: 1 day PAIN SCALE: 5/10 LOCATION: Diffuse abdomen. TECHNIQUE: Volumetric scanning of the abdomen and pelvis was performed. Using automated exposure control and ad justment of the mA and/or kV according to patient size, radiation dose was kept as low as reasonably achievable to obtain optimal diagnostic quality images. FINDINGS: Bony structures appear intact with clear lung bases. There is evidence of intra-pelvic surgery with c lips in place. Inhomogeneous soft tissue masses are appreciated in the pelvis with iliac adenopathy m ore prominent on the left than the right and soft tissue mass along the right paracolic gutter extend ing toward the pelvis. There is bilateral hydronephrosis into the pelvis. There are at least 4 low de nsity ill-defined lesions in the liver measuring up to 2 cm in size which are new consistent with met astatic disease. Retroperitoneal adenopathy is appreciated. There is an ostomy right abdomen upper qu adrant most likely bowel. CONCLUSION: Significant progression disease with interim surgery in the pelvis and persistent multiple pelvic lob ular ill-defined and inhomogeneous masses. These yield bilateral hydronephrosis obstructive uropathy with hydroureter. There is progression of a static disease to the iliac region and retroperitoneum wi th adenopathy and along the right paracolic gutter consistent with peritoneal carcinomatosis and ther e are least 4 low density lesions in liver consistent with hepatic metastasis. Rohan Coats MD on July 13, 2016 at 14:48 Board Certified Radiologist. This report was verified electronically.
== END ==
LOC: HRAD 12:14
PROVIDERS: ATTEND Urology
DX: C67.9 Malignant neoplasm of bladder, unspecified (principal)
CPT/HCPCS: 71260; 74178; Q9967

== ENCOUNTER 2016-07-19 14:40 | Inpatient (IN) | payer OTHER ==
[~2016-07-19] VITALS: Ht 190.5 cm; Wt 74.3 kg
[~2016-07-19 14:40] MED LIST changes: -IOHEXOL 350 MG/ML 10 ML VIAL (for RAD DIAG) IV ONE
[2016-07-19] MEDS ORDERED: SODIUM CHLOR 0.9% 1000 ML INJ 1,000 ML IV ONE ×2 (15:00)
[2016-07-19 15:05] VITALS: RESP 20; O2SAT 97
[2016-07-19 15:19] LABS: MEAN CELL VOLUME 88.8 FL (80.0-100.0); MEAN CORPUSCULAR HEMOGLOBIN 30.1 PG (27.0-34.0); MEAN CORPUSCULAR HGB CONC 33.9 % (32.0-36.0); PLATELET COUNT 384 TH/MM3 (150-450); RED BLOOD COUNT 3.15 MIL/MM3 (4.50-5.90); WHITE BLOOD COUNT 37.8 TH/MM3 (4.0-11.0)
--- NOTE | 2016-07-19 15:19 | PD ---
HPI Chief Complaint: Complaint Time Seen by Provider: 14:49 Travel History International Travel<30 days: No Contact w/Intl Traveler<30days: No History of Present Illness HPI This is a 50-year-old male who has a history of bladder cancer status post radical cystoprostatectomy in May of this year presenting to the emergency department with increasing fullness in his back, constant, moderate severity associated with persistent vomiting unable to keep anything down. Patient reports that he had a CT scan on the but hasn't heard any of the results yet. He says ever since the CT scan he's been feeling badly and he feels like "something isn't right". He denies any fevers or chills. He's had no diarrhea. He says he's had a lot of dark blood from his penis, and the urine and his urostomy bag is darker than normal. PFSH Past Medical History Blood Disorders: No Anxiety: Yes Depression: No Heart Rhythm Problems: No Cancer: Yes (BLADDER CANCER) Cardiovascular Problems: Yes High Cholesterol: No Chemotherapy: Yes Chest Pain: No Congestive Heart Failure: No Diabetes: No Endocrine: No Gastrointestinal Disorders: No Genitourinary: Yes (NEUROGENIC BLADDER) Hepatitis: No Hiatal Hernia: No Hypertension: Yes Immune Disorder: No Implanted Vascular Access Dvce: No Musculoskeletal: No Neurologic: Yes (NEUROGENIC BLADDER, SPINAL CORD TUMOR) Psychiatric: Yes Reproductive: No Respiratory: No Immunizations Current: No Radiation Therapy: No Thyroid Disease: No Past Surgical History Abdominal Surgery: No AICD: No Body Medical Devices: MEDPORT RT CHEST Cardiac Surgery: No Ear Surgery: No Endocrine Surgery: No Eye Surgery: No Genitourinary Surgery: Yes (cystostopy, bladder surgery jan 2016) Joint Replacement: No Neurologic Surgery: Yes (REMOVAL OF TUMOR FROM SPINE) Oral Surgery: No Pacemaker: No Thoracic Surgery: No Other Surgery: Yes (spinal cord tumor) Social History Alcohol Use: No Tobacco Use: No Substance Use: No Allergies-Medications (Allergen,Severity, Reaction): Coded Allergies: No Known Allergies (Unverified , 07/19/16) Reported Meds & Prescriptions Reported Meds & Active Scripts Active Hydrocodone-Acetaminophen 10-300 Tab 1 Tab PO Q4H PRN Review of Systems Except as stated in HPI: all other systems reviewed are Neg Physical Exam Narrative GENERAL: Ill-appearing, moderate distress SKIN: Dry with skin tenting HEAD: Atraumatic. Normocephalic. EYES: Pupils equal and round. No injection or drainage. ENT: Dry mucous membranes NECK: Trachea midline. CARDIOVASCULAR: Tachycardic No murmur appreciated. RESPIRATORY: Clear to auscultation. Breath sounds equal bilaterally. GASTROINTESTINAL: Abdomen soft, midline incisional scar well-healing, ileal conduit is productive and patent, patient is tender to palpation in the lower abdomen with no rebound or guarding. MUSCULOSKELETAL: No obvious deformities. NEUROLOGICAL: Awake and alert. No obvious cranial nerve deficits. Moving all extremities. PSYCHIATRIC: Appropriate mood and affect; insight and judgment normal. Data Data Last Documented VS Vital Signs Date Time Temp Pulse Resp B/P Pulse Ox O2 Delivery O2 Flow Rate FiO2 07/19/16 15:41 137 07/19/16 15:20 98.1 18 156/89 98 07/19/16 15:05 Room Air Orders Complete Blood Count With Diff (07/19/16 14:57) Comprehensive Metabolic Panel (07/19/16 14:57) Prothrombin Time / Inr (Pt) (07/19/16 14:57) Act Partial Throm Time (Ptt) (07/19/16 14:57) Lactic Acid Sepsis Protocol (07/19/16 14:57) Lipase (07/19/16 14:57) Urinalysis - C+S If Indicated (07/19/16 14:57) Blood Culture (07/19/16 14:57) Chest, Single Ap (07/19/16 14:57) Blood Glucose (07/19/16 14:57) Ecg Monitoring (07/19/16 14:57) Iv Access Insert/Monitor (07/19/16 14:57) Oximetry (07/19/16 14:57) Oxygen Administration (07/19/16 14:57) Sodium Chlor 0.9% 1000 Ml Inj (Ns 1000 M (07/19/16 15:00) Sodium Chlor 0.9% 1000 Ml Inj (Ns 1000 M (07/19/16 15:00) Urine Culture (07/19/16 15:20) Vancomycin Inj (Vancomycin Inj) (07/19/16 15:45) Cefepime Inj (Maxipime Inj) (07/19/16 15:45) Ondansetron Inj (Zofran Inj) (07/19/16 15:45) Electrocardiogram (07/19/16 ) Hydromorphone Pf Inj (Dilaudid Pf Inj) (07/19/16 17:00) Admit Order (Ed Use Only) (07/19/16 17:11) Code Status (07/19/16 17:11) Consult Medical Oncology (07/19/16 ) Consult Palliative Care (07/19/16 ) Labs Laboratory Tests Test 07/19/16 07/19/16 15:00 15:20 White Blood Count 37.8 TH/MM3 Red Blood Count 3.15 MIL/MM3 Hemoglobin 9.5 GM/DL Hematocrit 28.0 % Mean Corpuscular Volume 88.8 FL Mean Corpuscular Hemoglobin 30.1 PG Mean Corpuscular Hemoglobin 33.9 % Concent Red Cell Distribution Width 15.0 % Platelet Count 384 TH/MM3 Mean Platelet Volume 7.2 FL Neutrophils (%) (Auto) % Lymphocytes (%) (Auto) % Monocytes (%) (Auto) % Eosinophils (%) (Auto) % Basophils (%) (Auto) % Neutrophils # (Auto) TH/MM3 Lymphocytes # (Auto) TH/MM3 Monocytes # (Auto) TH/MM3 Eosinophils # (Auto) TH/MM3 Basophils # (Auto) TH/MM3 CBC Comment AUTO DIFF Differential Total Cells 100 Counted Neutrophils % (Manual) 81 % Band Neutrophils % 6 % Lymphocytes % 2 % Monocytes % 9 % Eosinophils % 2 % Neutrophils # (Manual) 32.9 TH/MM3 Differential Comment FINAL DIFF MANUAL Platelet Estimate HIGH Platelet Morphology Comment NORMAL Prothrombin Time 13.0 SEC Prothromb Time International 1.2 RATIO Ratio Activated Partial 31.3 SEC Thromboplast Time Sodium Level 134 MEQ/L Potassium Level 3.6 MEQ/L Chloride Level 99 MEQ/L Carbon Dioxide Level 21.4 MEQ/L Anion Gap 14 MEQ/L Blood Urea Nitrogen 13 MG/DL Creatinine 0.79 MG/DL Estimat Glomerular Filtration 104 ML/MIN Rate Random Glucose 133 MG/DL Lactic Acid Level 2.4 mmol/L Calcium Level 8.7 MG/DL Total Bilirubin 0.8 MG/DL Aspartate Amino Transf 17 U/L (AST/SGOT) Alanine Aminotransferase 40 U/L (ALT/SGPT) Alkaline Phosphatase 171 U/L Total Protein 7.1 GM/DL Albumin 2.3 GM/DL Lipase 87 U/L Urine Collection Type CATH Urine Color YELLOW Urine Turbidity CLEAR Urine pH 6.5 Urine Specific [place] 1.010 Urine Protein 30 mg/dL Urine Glucose (UA) NEG mg/dL Urine Ketones NEG mg/dL Urine Occult Blood LARGE Urine Nitrite POS Urine Bilirubin NEG Urine Leukocyte Esterase LARGE Urine RBC 10-14 /hpf Urine WBC 25-49 /hpf Urine Amorphous Sediment MOD Urine Bacteria MOD /hpf Microscopic Urinalysis Comment CULTURE INDICATED MDM Medical Decision Making Medical Screen Exam Complete: Yes Emergency Medical Condition: Yes Medical Record Reviewed: Yes (patient was admitted in May and had a radical cystoprostatectomy performed by Dr. Lee. Since then he's had a CT scan which demonstrates progression of disease) Interpretation(s) Afebrile, tachycardic, hypertensive Leukocytosis with left shift Normal creatinine and GFR Mildly elevated lactic acid Urinalysis: Infection unclear if chronic due to ileal conduit or acute Chest x-ray: No acute process CT abdomen and pelvis from July 13 demonstrate significant progression of disease. Patient has bilateral hydronephrosis, progression of static disease to the iliac region and retroperitoneum and along the right or colic gutter with peritoneal carcinomatosis and for low density lesions in the liver consistent with hepatic metastasis Differential Diagnosis Urinary tract infection, pneumonia, pulmonary embolism, sepsis Narrative Course This is a 50-year-old male who has a history of bladder cancer who presents to the emergency department with back and abdominal pain, nausea and vomiting and unable to keep anything down. He is placed in a monitor and an IV was established. He is found to be tachycardic in the 130s. He was given IV hydration and covered with broad-spectrum antibiotics for probable sepsis. He has a marked leukocytosis when compared to his labs in May. He does have a urinary tract infection but this may be chronic colonization of his ileal conduit. I had a long conversation with the patient regarding his goals of care. He understands that his cancer is not curable and at this point treatments or palliative in order to let him live as comfortably as he can for has long as he can. The patient is interested in a discussion with palliative care given his advancing disease and poor symptom control. We specifically discussed CODE STATUS. If the patient were to naturally in the hospital he would not want to be resuscitated. He agreed to place a DNR/ DNI order in the chart. If he were to be incapacitated he reports that he would want his mother to make decisions for him. I spoke to Dr. Huddleston regarding the patient's advancing disease. She agrees with admitting him to the hospital and thinks he can be admitted here at [facility] for antibiotic management and symptomatic control. Physician Communication Physician Communication Discussed with Dr. Galloway and Dr. Reilly Diagnosis Primary Impression: Sepsis Qualified Code: A41.9 - Sepsis, due to unspecified organism Additional Impression: Bladder cancer Qualified Code: C67.9 - Malignant neoplasm of urinary bladder, unspecified site Admitting Information Admitting Physician Requests: Admit Suzie Soto MD Jul 19, 2016 15:19
[2016-07-19 15:20] VITALS: BP 156/89; PULSE 137; RESP 18; TEMP 98.1; O2SAT 98
[2016-07-19 15:20] LABS: HEMO FLAGS AUTO DIFF
[2016-07-19 15:26] LABS: CHLORIDE 99 MEQ/L (98-107); POTASSIUM 3.6 MEQ/L (3.5-5.1); SODIUM (NA) 134 MEQ/L (136-145)
[2016-07-19 15:30] LABS: ANION GAP 14 MEQ/L (5-15); APTT (PATIENT) 31.3 SEC (24.3-30.1); BICARBONATE 21.4 MEQ/L (21.0-32.0); BLOOD UREA NITROGEN 13 MG/DL (7-18); INTERNATIONAL NORMALIZED RATIO 1.2 RATIO
[2016-07-19 15:32] LABS: BLOOD, URINE LARGE (NEG); GLUCOSE,URINE NEG (NEG); KETONE, URINE NEG (NEG); PH, URINE 6.5 (5.0-8.5)
[2016-07-19 15:33] LABS: ALT (GPT) 40 U/L (12-78); AST (GOT) 17 U/L (15-37); GLOMERULAR FILTRATION RATE 104 ML/MIN (>89)
[2016-07-19 15:34] LABS: TOTAL BILIRUBIN ADULT 0.8 MG/DL (0.2-1.0)
[2016-07-19 15:35] LABS: METHOD OF COLLECTION CATH; NITRITE,URINE POS (NEG); URINE COLOR YELLOW (YELLW/STRAW)
[2016-07-19 15:36] LABS: ALKALINE PHOSPHATASE 171 U/L (45-117)
[2016-07-19 15:37] LABS: BACTERIA, URINE MOD /hpf; COMMENT (UR) CULTURE INDICATED; CULTURE IF INDICATED CULTURE INDICATED
[2016-07-19 15:42] LABS: BANDS 6 % (0-6); EOSINOPHILS 2 % (0-4); NEUTROPHIL # MANUAL DIFF 32.9 TH/MM3 (1.8-7.7); PLATELET ESTIMATE SMEAR HIGH (NORMAL); PLATELET MORPHOLOGY NORMAL (NORMAL); POLYS (SEG NEUTROPHILS) 81 % (16-70); SCAN/DIFF FINAL DIFF MANUAL; WBC DIFF SAMPLE 100
[2016-07-19] MEDS ORDERED: ONDANSETRON HCL 4 MG/2 ML VIAL IV ONE (15:45)
[2016-07-19] MEDS ORDERED: VANCOMYCIN INJ 1,200 MG in SODIUM CHLOR 0.9% 250 ML INJ 250 ML IV ONE (15:45)
[2016-07-19] MEDS ORDERED: CEFEPIME INJ 2,000 MG in SODIUM CHLORIDE 0.9% INJ 100 ML IV ONE (15:45)
--- NOTE | 2016-07-19 15:47 | RADHPO ---
EXAM DATE/TIME: 07/19/2016 15:14 [facility] COMPARISON: ABDOMEN KUB ONLY, June 09, 2016, 2:37. INDICATIONS : Fever. Shortness of breath. MEDICAL HISTORY : Carcinoma, bladder. Hypertension. SURGICAL HISTORY : None. ENCOUNTER: Initial ACUITY: 2 weeks PAIN SCORE: 4/10 LOCATION: Bilateral chest FINDINGS: A single view of the chest demonstrates the lungs to be symmetrically aerated without evidence of mas s, infiltrate or effusion. The cardiomediastinal contours are unremarkable. Osseous structures are intact. There is an Cpmssw-d-Nhsh present on the right. CONCLUSION: 1. The Dpofkd-v-Slle in good position. 2. The lungs are clear. Salvatore Tolbert MD Board Certified Radiologist. This report was verified electronically.
[2016-07-19] MEDS ORDERED: HYDROmorphone HCL PF 1 MG/ML VIAL IV PUSH ONE (17:00)
[2016-07-19 17:14] LABS: LACTIC ACID GHOST NOT REPORTABLE
[2016-07-19] MEDS ORDERED: VANCOMYCIN INJ 1,500 MG in SODIUM CHLORID 0.9% 500 ML INJ 500 ML IV SCH (17:45)
[2016-07-19] MEDS ORDERED: ONDANSETRON HCL 4 MG/2 ML VIAL IVP PRN (17:45)
[2016-07-19] MEDS ORDERED: Vancomycin Consult Pharmacy 1 EA OTHER SCH (18:00)
[2016-07-19 18:11] VITALS: O2SAT 97
[2016-07-19] MEDS: SODIUM CHLOR 0.9% 1000 ML INJ 1,000 ML IV SCH (18:13)
[2016-07-19 18:34] VITALS: BP 109/57; TEMP 101.2
[2016-07-19 20:00] VITALS: BP 133/75; PULSE 111; RESP 20; TEMP 97.1; O2SAT 99
[2016-07-19] MEDS: HYDROmorphone HCL PF 1 MG/ML VIAL IV PUSH PRN ×2 (20:20→23:59)
[2016-07-19] MEDS: SODIUM CHLORIDE 0.9% FLUSH 5 ML FLUSH FLUSH SCH (20:20)
[2016-07-19 20:39] VITALS: O2SAT 98
[2016-07-19] MEDS: SODIUM CHLORIDE 0.9% FLUSH 5 ML FLUSH FLUSH PRN ×2 (22:34→23:59)
[2016-07-19] MEDS ORDERED: ONDANSETRON HCL 4 MG/2 ML VIAL IVP SCH (23:45)
[2016-07-19] MEDS: ONDANSETRON HCL 4 MG/2 ML VIAL IVP SCH (23:53)
[2016-07-20] VITALS: BP 113/33; PULSE 101; RESP 18; TEMP 100.1; O2SAT 99
[2016-07-20] MEDS: SODIUM CHLORIDE 0.9% FLUSH 5 ML FLUSH FLUSH PRN ×4 (00:15→05:58)
[2016-07-20] MEDS: CEFEPIME INJ 1,000 MG in SODIUM CHLORIDE 0.9% INJ 100 ML IV SCH ×4 (00:15→23:36)
[2016-07-20] MEDS: VANCOMYCIN INJ 1,100 MG in SODIUM CHLOR 0.9% 250 ML INJ 250 ML IV SCH ×3 (01:58→18:38)
[2016-07-20] MEDS: SODIUM CHLOR 0.9% 1000 ML INJ 1,000 ML IV SCH ×3 (03:55→13:44)
[2016-07-20] MEDS: HYDROmorphone HCL PF 1 MG/ML VIAL IV PUSH PRN ×4 (03:57→18:37)
[2016-07-20 04:00] VITALS: TEMP 100.6
[2016-07-20] MEDS: ACETAMINOPHEN 325 MG TAB PO PRN ×2 (04:02→11:42)
[2016-07-20] MEDS: ONDANSETRON HCL 4 MG/2 ML VIAL IVP SCH ×3 (05:58→18:36)
--- NOTE | 2016-07-20 05:58 | MB ---
cc: ROSA MARIA KHAN,DOMENICO MCCARTHY DATE OF 1965 DATE OF SERVICE 07/19/2016 PRIMARY PHYSICIAN None. CHIEF COMPLAINT Dr. Khan requested consultation for Mr. Henderson with metastatic bladder cancer, admitted for intractable nausea and vomiting associated with leukocytosis. HISTORY OF PRESENT ILLNESS Mr. Henderson is a 50-year-old man, well-known patient with history of muscle invasive bladder cancer. He presented with hematuria. He received perioperative chemotherapy but developed complications of recurrent hematuria, that the chemotherapy could not be administered. After multiple attempts at conservative management, he ultimately required admission to the hospital and underwent bladder resection on June 08, 2016. The final pathology showed that the left distal ureteral margin was negative. The right distal ureteral margin was negative. The bladder and prostate from a cystoprostatectomy showed invasive transitional cell carcinoma with focal squamous differentiation. Left pelvic lymph node was excised. One of the lymph nodes and multiple fragments of lymph nodes were replaced by poorly differentiated transitional cell carcinoma. A left obturator lymph node and total replacement of 1/1 lymph node by high-grade transitional cell carcinoma. The final tumor measured 8 x 7.5 x 5.5 cm. The tumor invades through the muscularis propria into the perivesicular adipose tissue microscopically and macroscopically. The margins were involved by invasive carcinoma at the anterior soft tissue margin. The ureteral margins were negative for tumor. There were lymphatic and venous space invasions. It was a pathologic stage, T4b, N2 Mx. After his bladder resection Mr. Henderson spent most part of May recovering from his surgery. He worked with physical therapy and was ultimately discharged on June 21, 2016. Mr. Henderson was scheduled for a follow-up visit in oncology last week. However, he was unable to keep his appointment as his mother had the flu. He was able to see Dr. Domenico Lee in outpatient followup on July 13, 2016. Dr. Lee coordinated outpatient imaging study. He was in the process of having his appointment with Oncology rescheduled when he presented to the emergency room with nausea and vomiting for the last three days. He was feeling badly. He had pain radiating to the back. He was noticing bloody discharge from penis. The urine from his urostomy bag was getting darker. He was evaluated by Dr. Khan. He was found to have anemia with significant leukocytosis, predominantly neutrophils of bandemia. His renal function appeared to be normal. His glucose was 133, alkaline phosphatase elevated at 171, albumin is decreased. Has a mild coagulopathy with prolongation of the PT/PTT. He had cultures performed and promptly started antibiotic therapy. His last imaging study on outpatient basis was reviewed which suggests progression of disease. July 13, 2016, CT scan of the abdomen and pelvis showed significant progression after surgery with multiple pelvic bilobular ill-defined inhomogeneous masses with bilateral hydronephrosis, obstructive uropathy with hydroureter. He has progression of metastatic disease to the iliac region in the retroperitoneum with adenopathy. The right paracolic gutter is consistent with peritoneal carcinomatosis and four low-density lesions in the liver. CT scan of the chest showed two stable 5-mm right upper lobe anterior segment pulmonary nodules. There were new 5-mm left lower lobe posterior nodules, all of which are consistent with distant metastatic disease. Mr. Henderson was seen in the emergency room. His urine output was becoming more clear after hydration. He complains of nausea and vomiting which brought him in to be evaluated. He was febrile to 101.2. He describes not catching the flu at home. However, his mother was febrile and had the flu about a week ago. He denies any chest pain. He has mainly back pain and some abdominal discomfort. He took the news in stride about the progression of disease. We have not had the opportunity to meet on an outpatient basis and his appointment is being rescheduled. PAST MEDICAL HISTORY 1. Neurogenic bladder. 2. Muscle invasive bladder cancer with progression to metastatic disease. 3. History recurrent hematuria. 4. Chronic anemia. 5. History of chronic renal insufficiency. 6. Iron deficiency anemia. 7. Chronic pain. PAST SURGICAL HISTORY 1. Laminectomy. 2. Transurethral bladder irrigation. 3. Cystoscopy. 4. Port placement. 5. Cystectomy and prostatectomy with ureteral diversion. FAMILY HISTORY Significant for father with lymphoma. His mother is alive and well. SOCIAL HISTORY Smokes a pack a day and denies any alcohol or illicit drug use. ALLERGIES No known drug allergies. CURRENT MEDICATIONS 1. Vancomycin. 2. Cefepime. 3. Hydromorphone p.r.n. 4. Ondansetron. 5. Sodium chloride. PHYSICAL EXAMINATION VITAL SIGNS: Temperature maximum 101.2, temperature repeat 97.1, heart rate 111, respiratory rate 20, blood pressure 132/75, saturation 99%. GENERAL: Mr. Henderson is a tired-appearing, well-developed, well-nourished man. He looks chronically ill. He seems a bit diaphoretic. His long hair is unkempt. HEENT: His pupils are round, reactive to light and accommodation. Oropharynx is clear. NECK: Supple. LUNGS: Clear. CARDIOVASCULAR: Exam reveals tachycardia. ABDOMEN: Mildly distended. Bowel sounds present. Ileal conduit/pouch on the right side. It is draining yellow, clear urine. LOWER EXTREMITIES: Trace edema. Well-healed abdominal scar. LABORATORY DATA Significant for anemia with hemoglobin of 9.5, white count 37,000, predominately neutrophils. BUN of 13, creatinine 0.79. Coagulopathy with prolonged PT/PTT. ASSESSMENT AND PLAN Mr. Henderson is a 50-year-old man, well-known patient with initial presentation of hematuria, invasive bladder cancer post long history of neurogenic bladder. He received neoadjuvant chemotherapy with marginal response. She had progression and complications of gross hematuria. He required a palliative cystectomy. He has just recovered from his surgery and has not had an opportunity yet to follow up in Oncology Clinic on outpatient basis to discuss palliative treatments. He is admitted now for urosepsis. We suspect the urine is the fever source. He comes in febrile, tachycardiac with abdominal and back pain, hydroureter present from previous CT scan from a week ago. We had a lengthy discussion with Mr. Henderson and his mother present at the consultation of options for palliative therapy. We discussed the treatment from here on is palliative; it is intended to alleviate his symptoms. We need to address the acute infection at present. He is started on antibiotic therapy and appears to be responding. We will continue to monitor his progress and follow his cultures. We discussed additional chemotherapy versus checkpoint inhibitor. We discussed availability of checkpoint inhibitor that is approved for metastatic bladder cancer specifically. Risks and benefits and toxicities associated with this checkpoint inhibitor was discussed. This is a treatment that we could coordinate on an outpatient basis. Mr. Henderson expressed interest in such treatment. We will continue to follow his progress during his hospitalization. We will optimize his antiemetic therapy. His pain is better controlled with p.r.n. pain medication administered in the emergency room. His questions were answered to his satisfaction. MD MAYE Nunez/YAN /11:12 PM /5:35 AM
[2016-07-20 06:43] LABS: AUTOMATED NEUTROPHIL # 29.2 TH/MM3 (1.8-7.7); BASOPHIL # 0.1 TH/MM3 (0-0.2); BASOPHIL % 0.4 % (0.0-2.0); EOSINOPHIL # 0.8 TH/MM3 (0-0.4); EOSINOPHIL % 2.5 % (0.0-4.0); HEMATOCRIT 25.2 % (39.0-51.0); LYMPH % 4.4 % (9.0-44.0); LYMPHOCYTE # 1.5 TH/MM3 (1.0-4.8); MEAN CORPUSCULAR HEMOGLOBIN 30.5 PG (27.0-34.0); MEAN CORPUSCULAR HGB CONC 33.8 % (32.0-36.0); MONO % 5.7 % (0.0-8.0); PLATELET COUNT 355 TH/MM3 (150-450); RED CELL DISTRIBUTION WIDTH 15.1 % (11.6-17.2); WHITE BLOOD COUNT 33.5 TH/MM3 (4.0-11.0)
[2016-07-20 06:51] LABS: HEMO FLAGS AUTO DIFF
[2016-07-20 07:01] LABS: BICARBONATE 20.6 MEQ/L (21.0-32.0); POTASSIUM 3.8 MEQ/L (3.5-5.1)
[2016-07-20 07:42] LABS: BANDS 3 % (0-6); DOHLE BODIES PRESENT (NONE SEEN); EOSINOPHILS 6 % (0-4); NEUTROPHIL # MANUAL DIFF 29.1 TH/MM3 (1.8-7.7); PLATELET ESTIMATE SMEAR NORMAL (NORMAL); PLATELET MORPHOLOGY NORMAL (NORMAL); POLYS (SEG NEUTROPHILS) 84 % (16-70); SCAN/DIFF FINAL DIFF MANUAL; WBC DIFF SAMPLE 100
[2016-07-20 08:00] VITALS: BP 112/69; PULSE 100; RESP 20; TEMP 98.2; O2SAT 100
[2016-07-20] MEDS: SODIUM CHLORIDE 0.9% FLUSH 5 ML FLUSH FLUSH SCH ×2 (08:50→19:53)
--- NOTE | 2016-07-20 11:06 | EKG ---
Date Performed: 07/19/2016 Time Performed: 16:07:28 PTAGE: 50 years EKG: Sinus tachycardia Normal ECG except for rate PREVIOUS TRACING : 06/04/2016 15.04 DOCTOR: Sean Sears Interpretating Date/Time 07/20/2016 11:05:38
[2016-07-20 12:00] VITALS: BP 122/70; PULSE 111; RESP 20; TEMP 101.2; O2SAT 99
[2016-07-20] MEDS: CITALOPRAM HYDROBROMIDE 20 MG TAB PO SCH (13:00)
[2016-07-20] MEDS ORDERED: LORazepam 0.5 MG TAB PO PRN (13:00)
[2016-07-20] MEDS: METHADONE HCL 10 MG TAB PO SCH ×2 (13:00→21:36)
--- NOTE | 2016-07-20 13:45 | PD.CONS ---
Consult Service Palliative Care . Consult Requested By Dr. Soto . Primary Care Physician Unknown . Reason for Consultation a. To assist with evaluation and management of symptoms including: pain; anxiety; nausea/vomiting b. To assist medical decision maker(s) with: better understanding of current medical conditions; weighing benefits/burdens of medical treatment options; making medical treatment decisions. . HPI History of Present Illness Mr. Henderson is an unfortunate 50 y/o male with known widely metastatic bladder cancer as well as neurogenic bladder; recurrent hematuria; chronic anemia; and chronic pain who was brought to the emergency department on 07/19/16 because of a several-day history of progressively worsening low back pain, lower abdominal pain, and nausea/vomiting which is at the point where he could keep nothing down. The patient had undergone radical cystoscopy-prostatectomy in May of this year. He felt he had been improving, but quite slowly, until he underwent CT imaging on 07/13/16. He seemed to grow ill after that with the above mentioned pain, nausea/vomiting, weakness, and some night sweats. There is also been dark blood coming from his penis and the urine in his urostomy bag was reported to be darker than normal. 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 He has required self catheterization since then. In November, he noted intermittent hematuria which grew progressively worse. In retrospect he believes he had begun losing weight at that point and experiencing increasing fatigue. The patient was hospitalized on 01/22/16 with back pain, lower abdominal pain, and hematuria. He was found to have urosepsis and hydronephrosis. CT imaging also revealed extensive pelvic lymphadenopathy. He underwent cystoscopy. Pathology came back showing a high-grade bladder cancer with lamina propria invasion. A lymph node biopsy took place at that time and results were nondiagnostic. Mr. Henderson was subtotally followed by Dr. Lee in medical oncology. He was started on neoadjuvant chemotherapy. The patient tolerated the chemotherapy reasonably well but required several hospitalizations for hematuria and also for urinary tract infections. Hospitalizations included the following: * 05/11/16 through 05/16/16 * 05/26/16 through 05/29/16 * 06/02/16 through 06/21/16 During this last hospitalization the patient underwent radical cystoprostatectomy with bilateral pelvic lymph node dissection and creation of an ileal conduit. The patient reports he had a very slow and uncomfortable recovery following hospital discharge on June 21. He was living with his mother. Wound healing was slow and energy level was low. He did note forward progress, however, up until the time of his follow-up CT imaging on 07/13 when the symptoms began that brought him in here for this admission. Initial vital signs in the emergency department on 07/19/16 showed the following : Temperature 98.1; respiratory rate 20; pulse oximetry 97% on room air; heart rate 137; blood pressure 156/89. A few hours later in the emergency department temperature gone up to 101.2 and blood pressure fell to 109/57. Initial examination by the emergency line department supervisor showed the following: Patient was ill-appearing and in moderate distress. Skin was noted to be dry with skin tenting. The patient was tachycardic but cardiovascular exam was otherwise unremarkable. Lungs were clear. The lower abdomen was tender to palpation but there is no rebound or guarding. The ileal conduit was productive and patent. No other abnormalities were noted. Initial diagnostic testing revealed the following: * CBC showed WBC 37.8; hemoglobin 9.5; platelet count 384. There were 6% bands. * Coagulation profile showed PT 13.0; INR 1.2; PTT 31.3 * Chemistry panel showed sodium 134; potassium 3.6; chloride 99; CO2 21.4; anion gap 14; BUN 13; creatinine 0.79; GFR 104; glucose 133; lactic acid 2.4; calcium 8.7 * Liver function studies showed total bilirubin 0.8; AST 17; ALT 40; alkaline phosphatase 171; total protein 7.1; albumin 2.3 * Urine was remarkable for 30 mg of protein; large occult blood; positive nitrite; large leukocyte esterase; many WBCs; and moderate bacteria * Chest x-ray showed the patient's Xxearj-j-Peyd to be in good position. Lungs were clear. * CT of the abdomen/pelvis performed on 07/13/16 showed significant progression of disease. There were persistent multiple pelvic lobular ill-defined inhomogeneous masses. There is bilateral hydronephrosis. Disease progression was noted in the iliac region and retroperitoneum there were signs consistent with peritoneal carcinomatosis. There were at least 4 low density lesions in the liver consistent with hepatic metastases. * CT of the chest on 07/13/16 showed 2 stable 5 mm right upper lobe anterior segment pulmonary nodules. There is a new 5 mm left lower lobe posterior nodule. There were also 3 low density lesions in the liver. . With the patient's elevated white blood count, abnormal urinalysis, tachycardia , and elevated lactic acid, sepsis was suspected. The patient was given IV fluids and provided with empiric antibiotic therapy. Because of the CT evidence of disease progression, a goals of care discussion took place in the emergency department. The patient opted for "no code" status. He also agreed to palliative care consultation. Medical oncology was consulted. Dr. Lee is quite familiar with Mr. Henderson and saw him earlier today. She discussed possible treatment with a checkpoint inhibitor as an outpatient once the current infection was treated. The patient appears quite interested in this option. The patient's pain is primarily in the low back and lower abdomen. He also had pain at his [place] surgery site. During the postoperative period at home he was using either Lortab 10 mg or oxycodone 10 mg. He had been using approximately 5 per day shortly after his surgery and had weaned down to approximately 2 a day until the pains that brought him in here grow worse. The current pain is exacerbated by movement. The abdominal pain is exacerbated when he strains to have a bowel movement or even without straining as he feels peristaltic movement in his gut. He is currently receiving 0.5 mg doses of intravenous hydromorphone. These will bring a levels down from #8 to #5. He would like something that is both stronger and would last longer. Patient reports a history of anxiety that long predates his cancer diagnosis. The progression of the illness, his frequent hospitalizations, his increasing dependence, and confronting his own mortality have all exacerbated his anxiety. He is very open to trying medication to address the anxiety. Here in the hospital he has been on odansetron for the nausea / vomiting. The medication along with treatment of the underlying infection seemed to be helping he was able to keep down small amounts of food and fluids today. . Function/Cognitive Trajectory In retrospect Mr. Henderson tells me that he probably began losing weight and having less energy in the early summer of 2015. He presented to the hospital with sepsis and hematuria in January 2016 and for the most part has been in and out of the hospital since then. He had his major surgery with cystoprostatectomy as well as placement of an ileal conduit in May. He has had slow healing and slow recovery but was making some forward progress until . Patient had been walking with a walker at home. The ileal conduit had been functioning. Bowels have been moving fine. The patient feels he has lost approximately 20 pounds from 185 down to 165 over the course of his illness. . Review of Systems Constitutional: COMPLAINS OF: Diaphoretic episodes, Fatigue, Fever, Weight loss , Change in appetite, Night Sweats, Generalized weakness, Sleep problems, DENIES: Weight gain, Chills Endocrine: DENIES: Polydipsia, Polyuria, Polyphagia Eyes: DENIES: Blurred vision, Diplopia, Vision loss Ears, nose, mouth, throat: DENIES: Tinnitus, Hearing loss, Throat pain, Running Nose, Epistaxis Respiratory: COMPLAINS OF: Shortness of breath, DENIES: Apneas, Cough, Snoring , Hemoptysis, Sputum production Cardiovascular: COMPLAINS OF: Palpitations, Dyspnea on Exertion, DENIES: Chest pain, Syncope, Lower Extremity Edema Gastrointestinal: COMPLAINS OF: Abdominal pain, Constipation, Nausea, Vomiting , Anorexia, DENIES: Black stools, Bloody stools, Diarrhea, Difficulty Swallowing Genitourinary: COMPLAINS OF: Hematuria, Dysuria, Penile Discharge, DENIES: Nocturia, Testicular Pain Musculoskeletal: COMPLAINS OF: Muscle aches, Back pain, DENIES: Joint pain, Joint Swelling, Neck pain Integumentary: COMPLAINS OF: Rash, Nodules, DENIES: Pruritus, Non-healing sores Hematologic/Lymphatics: COMPLAINS OF: Bruising, Lymphadenopathy Immunologic/Allergic: COMPLAINS OF: Eczema, DENIES: Urticaria Neurologic: DENIES: Headache, Localized weakness, Paresthesias, Seizures, Speech Problems, Tremor, Poor Balance Psychiatric: COMPLAINS OF: Anxiety, Depression, DENIES: Confusion, Mood changes, Hallucinations, Agitation, Suicidal Ideation Past Family Social History Coded Allergies: No Known Allergies (Unverified , 07/19/16) Past Medical History * Bladder cancer -- metastatic * Neurogenic bladder following excision of a benign spinal tumor in 1994 * Recurrent hematuria * Anemia * Hypertension * Anxiety . Past Surgical History * Excision of a benign spinal cord tumor with laminectomy 1994 * Transurethral bladder irrigation and cystoscopy * Lpzzqn-[id number]-jmpi placement * Radical cysto-protatectomy with ileoconduit. . Reported Medications Pre-hospital medications included the following: Hydrocodone-Acetaminophen 10-300 Tab 1 Tab PO Q4H PRN . Current Medications Medications (Trade) Dose Ordered Sig/Ambika Route Start Time Stop Time Status Last Admin (NS 1000 ml Inj) 1,000 ml @ 100 mls/hr Q10H IV 07/19/16 17:44 07/20/16 03:58 (NS Flush) 2 ml UNSCH PRN FLUSH 07/19/16 17:45 07/20/16 05:58 IV Flush 2 ml 2 ml BID FLUSH 07/19/16 21:00 07/20/16 08:50 Cefepime HCl 1000 mg/Sodium Chloride 100 ml @ 200 mls/hr Q8H IV 07/20/16 00:00 07/20/16 08:49 Pharmacy Profile Note 0 ml @ 0 mls/hr UNSCH OTHER 07/19/16 18:00 (Vancomycin Inj/ NS 250 ml Inj) 261 ml @ 250 mls/hr Q8H IV 07/20/16 02:00 07/20/16 11:03 Miscellaneous Information SPECIFIC LAB TO BE DRAWN:VANCOMY... ONCE ONCE XX 07/21/16 01:45 07/21/16 01:46 (Tylenol) 650 mg Q4H PRN PO 07/19/16 20:00 07/20/16 11:42 (Dilaudid Pf Inj) 0.5 mg Q3HR PRN IV PUSH 07/19/16 20:00 07/20/16 11:44 (Zofran Inj) 4 mg Q6H IVP 07/20/16 00:00 07/20/16 18:01 07/20/16 11:43 (Dolophine) 5 mg Q12HR PO 07/20/16 13:00 (CeleXA) 20 mg DAILY PO 07/20/16 13:00 (Ativan) 0.5 mg Q8HR PO 07/20/16 14:00 (Ativan) 0.5 mg Q6H PRN PO 07/20/16 13:00 (Ativan) 1 mg Q6H PRN PO 07/20/16 13:00 . Family History * The patient's father under hospice care of lymphoma. Father also had early onset coronary artery disease with a myocardial infarction at age 42 * Mother is alive and well. * The patient is an only child . Substance Use Tobacco: Had been a one pack per day smoker up until the time of his cancer diagnosis. Alcohol: No history of abuse. No history of abuse. Prescription med abuse: Illicits: No known use of illicits. . Psychosocial History Mr. Henderson is originally from [place]. He moved to [place] approximately 13-14 years ago. 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 No experience. Patient has essentially been unable to work since his diagnosis in January. The patient was once. He his first many years ago. She subsequently . He has 2 children from this marriage age 30 and 25. Both live locally. He keeps in touch. The patient has his own home but for the last month or so has been living with his mother as he has been unable to take care of himself. The patient's father of lymphoma in 2007. . Spiritual/Cultural Factors The patient is Denominational. He appreciates visits from the mottle lay up operator. He reports that islam has become more important to him as he has confronted his own mortality. The mottle lay up operator has already visited today. . Living Will: Copy in medical record Health Care Surrogate: Copy in medical record Durable Power of Urban Redevelopment Specialist: Never completed Date completed: The patient completed a living will with my assistance on 07/20/16. . Health Care Surrogate(s): The patient has designated his Payal Suazo his health care surrogate. . Documented care wishes: The patient is completed a standard [place] living will indicating that he would not want life prolonging measures should he be found to have an end-stage condition; terminal condition; or persistent vegetative state. . Today's verbally stated goals: The patient is quite clear today regarding his goals. He wants ongoing aggressive care for now short of resuscitation. He would like to keep fighting at least until he knows whether the remaining chemotherapy Dr. Lee has recommended is working for him. It is very important to him, however, that his life not be prolonged if there is little to no hope of regaining better quality of life. If it becomes apparent that none of the treatments are working to slow down the disease, he will want to transition to "comfort measures only." . Family/friends goals: The patient's mother is present at the bedside as we discuss his goals and wishes and preferences. She is the patient's health care surrogate and indicates she understands her son's wishes and will be able to honor them when the time comes. She confirms, however, how difficult this is. Her at home under hospice care with lymphoma. Now she is watching her only child . . Ethical and Legal Issues The patient is currently capacitated to make his own health care decisions. He has completed a living will on 07/20/16 in designated his mother as health care surrogate. . Physical Exam Vital Signs Date Time Temp Pulse Resp B/P Pulse Ox O2 Delivery O2 Flow Rate FiO2 07/20/16 12:19 18 07/20/16 12:19 18 07/20/16 12:00 101.2 111 20 122/70 99 07/20/16 08:00 98.2 100 20 112/69 100 07/20/16 04:00 100.6 07/20/16 00:00 100.1 101 18 113/33 99 07/19/16 20:39 98 Nasal Cannula 2.00 07/19/16 20:00 97.1 111 20 133/75 99 07/19/16 18:40 18 07/19/16 18:34 101.2 108 18 109/57 100 Nasal Cannula 2 07/19/16 18:11 97 21 07/19/16 15:41 137 07/19/16 15:20 98.1 137 18 156/89 98 07/19/16 15:05 97 Room Air 07/19/16 15:05 20 97 Room Air . 07/19/16 07/20/16 19:00 07:00 Intake Total 2450 ml 1490 ml Output Total 300 ml Balance 2150 ml 1490 ml Intake Oral 100 ml 240 ml IV Total 2350 ml 1250 ml Output Urine Total 300 ml # Voids 1 2 # Bowel Movements 0 . Exam CONSTITUTIONAL/GENERAL: This is a thin male who grimaces with movement. Awake, alert, conversant. TUBES/LINES/DRAINS: Glgoqa-u-vesd right chest; ileoconduit; SKIN: No jaundice, or lesions. Eczematous type rash on forehead. Healed abdominal surgical scars. Skin temperature appropriate. Not diaphoretic. HEAD: Atraumatic. Normocephalic. EYES: Pupils equal and round and reactive. Extraocular motions intact. No scleral icterus. No injection or drainage. Fundi not examined. ENT: Hearing grossly normal. Nose without bleeding or purulent drainage. Throat without visible erythema, exudates, masses, or lesions. NECK: Trachea midline. Supple, nontender. No palpable thyroid enlargement or nodularity. CARDIOVASCULAR: Regular rate and rhythm without murmurs, gallops, or rubs. No JVD. Peripheral pulses symmetric. RESPIRATORY/CHEST: Symmetric, unlabored respirations. Clear to auscultation. Breath sounds equal bilaterally. No wheezes, rales, or rhonchi. Right sided osjbxh-b-feus. GASTROINTESTINAL: Diffuse mild-moderate tenderness across the lower abdomen. Abdomen soft, nondistended. No hepato-splenomegaly, or palpable masses. No guarding. Bowel sounds present. Ileoconduit present and functioning. GENITOURINARY: Ileoconduit functioning. No scrotal / penile edema. Small amount of dry blood at urethral meatus. MUSCULOSKELETAL: Extremities without clubbing, cyanosis, or edema. No joint tenderness or effusion noted. No calf tenderness. No mottling. LYMPHATICS: No palpable cervical or supraclavicular adenopathy. NEUROLOGICAL: Awake and alert. Motor and sensory grossly within normal limits. Follows commands. Cognitively sharp. Moves all extremities. PSYCHIATRIC: Anxious appearing. No obvious depression. No apparent hallucinations or other psychotic thought process. . Diagnostic Tests Laboratory Laboratory Tests Test 07/19/16 07/19/16 07/19/16 07/20/16 15:00 15:20 17:25 06:19 White Blood Count 37.8 TH/MM3 33.5 TH/MM3 (4.0-11.0) (4.0-11.0) Red Blood Count 3.15 MIL/MM3 2.80 MIL/MM3 (4.50-5.90) (4.50-5.90) Hemoglobin 9.5 GM/DL 8.5 GM/DL (13.0-17.0) (13.0-17.0) Hematocrit 28.0 % 25.2 % (39.0-51.0) (39.0-51.0) Mean Corpuscular Volume 88.8 FL 90.0 FL (80.0-100.0) (80.0-100.0) Mean Corpuscular Hemoglobin 30.1 PG 30.5 PG (27.0-34.0) (27.0-34.0) Mean Corpuscular Hemoglobin 33.9 % 33.8 % Concent (32.0-36.0) (32.0-36.0) Red Cell Distribution Width 15.0 % 15.1 % (11.6-17.2) (11.6-17.2) Platelet Count 384 TH/MM3 355 TH/MM3 (150-450) (150-450) Mean Platelet Volume 7.2 FL 7.0 FL (7.0-11.0) (7.0-11.0) Neutrophils (%) (Auto) % (16.0-70.0) 87.0 % (16.0-70.0) Lymphocytes (%) (Auto) % (9.0-44.0) 4.4 % (9.0-44.0) Monocytes (%) (Auto) % (0.0-8.0) 5.7 % (0.0-8.0) Eosinophils (%) (Auto) % (0.0-4.0) 2.5 % (0.0-4.0) Basophils (%) (Auto) % (0.0-2.0) 0.4 % (0.0-2.0) Neutrophils # (Auto) TH/MM3 29.2 TH/MM3 (1.8-7.7) (1.8-7.7) Lymphocytes # (Auto) TH/MM3 1.5 TH/MM3 (1.0-4.8) (1.0-4.8) Monocytes # (Auto) TH/MM3 (0-0.9) 1.9 TH/MM3 (0-0.9) Eosinophils # (Auto) TH/MM3 (0-0.4) 0.8 TH/MM3 (0-0.4) Basophils # (Auto) TH/MM3 (0-0.2) 0.1 TH/MM3 (0-0.2) CBC Comment AUTO DIFF AUTO DIFF Differential Total Cells 100 100 Counted Neutrophils % (Manual) 81 % (16-70) 84 % (16-70) Band Neutrophils % 6 % (0-6) 3 % (0-6) Lymphocytes % 2 % (9-44) 4 % (9-44) Monocytes % 9 % (0-8) 3 % (0-8) Eosinophils % 2 % (0-4) 6 % (0-4) Neutrophils # (Manual) 32.9 TH/MM3 29.1 TH/MM3 (1.8-7.7) (1.8-7.7) Differential Comment FINAL DIFF FINAL DIFF MANUAL MANUAL Platelet Estimate HIGH (NORMAL) NORMAL (NORMAL) Platelet Morphology Comment NORMAL NORMAL (NORMAL) (NORMAL) Prothrombin Time 13.0 SEC (9.8-11.6) Prothromb Time International 1.2 RATIO Ratio Activated Partial 31.3 SEC Thromboplast Time (24.3-30.1) Sodium Level 134 MEQ/L 139 MEQ/L (136-145) (136-145) Potassium Level 3.6 MEQ/L 3.8 MEQ/L (3.5-5.1) (3.5-5.1) Chloride Level 99 MEQ/L 107 MEQ/L (98-107) (98-107) Carbon Dioxide Level 21.4 MEQ/L 20.6 MEQ/L (21.0-32.0) (21.0-32.0) Anion Gap 14 MEQ/L (5-15) 11 MEQ/L (5-15) Blood Urea Nitrogen 13 MG/DL (7-18) 11 MG/DL (7-18) Creatinine 0.79 MG/DL 0.69 MG/DL (0.60-1.30) (0.60-1.30) Estimat Glomerular Filtration 104 ML/MIN 122 ML/MIN Rate (>89) (>89) Random Glucose 133 MG/DL 102 MG/DL (74-106) (74-106) Lactic Acid Level 2.4 mmol/L 1.0 mmol/L (0.4-2.0) (0.4-2.0) Calcium Level 8.7 MG/DL 8.6 MG/DL (8.5-10.1) (8.5-10.1) Total Bilirubin 0.8 MG/DL (0.2-1.0) Aspartate Amino Transf 17 U/L (15-37) (AST/SGOT) Alanine Aminotransferase 40 U/L (12-78) (ALT/SGPT) Alkaline Phosphatase 171 U/L (45-117) Total Protein 7.1 GM/DL (6.4-8.2) Albumin 2.3 GM/DL (3.4-5.0) Lipase 87 U/L (73-393) Urine Collection Type CATH Urine Color YELLOW (YELLW/STRAW) Urine Turbidity CLEAR (CLEAR) Urine pH 6.5 (5.0-8.5) Urine Specific [place] 1.010 (1.002-1.035) Urine Protein 30 mg/dL (NEG-TRACE) Urine Glucose (UA) NEG mg/dL (NEG) Urine Ketones NEG mg/dL (NEG) Urine Occult Blood LARGE (NEG) Urine Nitrite POS (NEG) Urine Bilirubin NEG (NEG) Urine Leukocyte Esterase LARGE (NEG) Urine RBC 10-14 /hpf (0-3) Urine WBC 25-49 /hpf (0-5) Urine Amorphous Sediment MOD Urine Bacteria MOD /hpf (NONE) Microscopic Urinalysis Comment CULTURE INDICATED Dohle Bodies PRESENT (NONE SEEN) . Result Diagram: 07/20/1661807/20/16618 Microbiology Microbiology Date/Time Procedure Status Source Growth 07/19/16 15:00 Aerobic Blood Culture - Preliminary Resulted Blood Peripheral NO GROWTH IN 1 DAY 07/19/16 15:00 Anaerobic Blood Culture - Preliminary Resulted Blood Peripheral NO GROWTH IN 1 DAY 07/19/16 15:15 Aerobic Blood Culture - Preliminary Resulted Blood Peripheral NO GROWTH IN 1 DAY 07/19/16 15:15 Anaerobic Blood Culture - Preliminary Resulted Blood Peripheral NO GROWTH IN 1 DAY 07/19/16 15:20 Urine Culture Received Urine Catheterized Urine Pending . Imaging Last Impressions Chest X-Ray 07/19/16 1457 Signed Impressions: Service Date/Time: Tuesday, July 19, 2016 15:14 - CONCLUSION: 1. The Rjbodt-q-Zhef in good position. 2. The lungs are clear. Salvatore Tolbert MD * CT of the abdomen/pelvis performed on 07/13/16 showed significant progression of disease. There were persistent multiple pelvic lobular ill-defined inhomogeneous masses. There is bilateral hydronephrosis. Disease progression was noted in the iliac region and retroperitoneum there were signs consistent with peritoneal carcinomatosis. There were at least 4 low density lesions in the liver consistent with hepatic metastases. * CT of the chest on 07/13/16 showed 2 stable 5 mm right upper lobe anterior segment pulmonary nodules. There is a new 5 mm left lower lobe posterior nodule. There were also 3 low density lesions in the liver. . Patient/Family Conference Present at Family Conference: Patient and patient's mother. . Family Conference Time (mins): 50 Family Conference Location: Bedside Issues Discussed: * Palliative care role, purpose, approach * Additional medical, psychosocial, and spiritual history * Patients general health, functional status, and cognitive changes in the months leading up to the current hospitalization * Patient/family understanding of the current medical problems * Patient/family understanding of prognosis * Patients goals of medical treatment. * Current medical treatment options and benefits/burdens of those options * Likely scenarios comparing ongoing aggressive care with a transition to comfort measures only * Questions answered to the best of my ability * Palliative care contact information provided . Assessment and Plan Disease Oriented Problem List: (1) Invasive carcinoma of urinary bladder Comment: Imaging shows progression of disease in spite of aggressive treatment. Mets now apparent in pelvic lymph nodes, lungs, liver, and possible abdominal carcinomatosis. . (2) Bilateral hydronephrosis (3) Sepsis Comment: Cultures negative so far. . (4) Urinary tract infection (5) Anemia due to blood loss (6) Hematuria (7) Intractable nausea and vomiting Comment: Improving with odansetron and with treatment of infection. . 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 . Symptom Scale: (1) Pain 0-10 Scale: 8 Comment: The patient's pain is primarily across his low back and across his lower abdomen. Pain reaches a #8 in intensity on most days. His current medication brings pain levels down at best to a #5. The pain is worse with movement. He describes the pain as sharp. It is nonradiating. Straining at stool also seems to exacerbate the pain. . (2) Anxiety 0-10 Scale: Unable to quantify Comment: Long history of anxiety pre-dates the cancer diagnosis but the progression of disease, ongoing need for hospitalizations, increasing dependence , etc have exacerbated the anxiety. . (3) Nausea & vomiting 0-10 Scale: 3 Comment: Improving with odansetron and treatment of underlying infection. . Pertinent Non-Medical Issues Psychosocial: Spiritual: Legal: Ethical issues impacting care: Important Contacts * Laurie Henderson (mother and health care surrogate) -- [phone] . Prognosis Mr. Henderson has widely metastatic (pelvic lymph, lungs, liver, abdominal carcinomatosis) bladder cancer that has progressed in spite of aggressive care. His treatment course has been challenging due to recurrent hematuria and infection. Treatment options would all be palliative going forward. Dr. Lee has offered the possibility of a checkpoint inhibitor. The patient understands this might have a 20-30% chance of slowing progression and improving quality of his life. Mr. Henderson clearly understands there is no cure at this point. While he is hoping to try the new therapy and hoping he responds , he is quite clear that the does not want treatments that will just prolong an uncomfortable dying process. He is familiar with hospice which took care of his father and will want to transition to hospice care if he does not tolerate the offered treatment or disease continues to progress in spite of the new therapy. . Plan == Code Status: NO CODE per patient's specific request. == Decision making: Patient is currently capacitated to make his own health care decisions. Should he become incapacitated, he has designated his mother Laurie Suazo his health care surrogate. == Goals of medical treatment: Patient clearly understands that he has non- curable disease short of a miracle. He also understands that his disease has progressed in spite of aggressive care. At this point in time, he desires aggressive care short of resuscitation in hopes of benefiting from the remaining therapy that Dr. Lee has recommended. He needed reassurance, however, that he could decide to transition to "comfort measures only" whenever he wished. He wants to make sure that treatments are not just prolonging the dying process and causing an unfair burden on his family. == Pain: The patient's pain is primarily across his low back and across his lower abdomen. Pain reaches a #8 in intensity on most days. His current medication brings pain levels down at best to a #5. The pain is worse with movement. He describes the pain as sharp. It is nonradiating. Straining at stool also seems to exacerbate the pain. The patient as requested greater pain relief. Not only is the current hydromorphone dose not adequate enough but it is also not lasting long enough. I have prescribed some low-dose methadone at 5 mg every 12 hours [id number]. This will provide approximately 30 oral morphine equivalents per day. I have also increased the hydromorphone dosage to 0.75 mg every 3 hours when necessary. Patient will need monitoring to make sure that between the pain medication and the anti-anxiety medication he does not become too sedated.. == Anxiety: Patient reports a history of anxiety that long predates his cancer diagnosis. His pain, dependence, knowledge of disease progression in spite of aggressive care, all contribute to the exacerbation of his underlying anxiety. The anxiety, in turn, probably exacerbates his pain. He agrees to receiving some medication help for the anxiety. He understands that both the pain medication and the anxiety medication can cause sleepiness. He agrees to work with us to try and find the best happy medium balancing control of symptoms against alertness.. We'll schedule him on lorazepam 0.5 mg every 8 hours and offer an additional 0.5-1 mg every 6 hours when necessary. I have also started citalopram. This should help with both some underlying anxiety and depression. == Nausea/vomiting; appears to be responding to treatment of the patient's infection as well as Zofran. Patient reports he is able to tolerate small amounts of liquids and solids today. No further recommendations at this time. == Methadone, ondansetron, and citalopram, all have the potential of prolonging QT interval. Given the patient's age, his most recent EKG, and the doses of these medicines provided, I think the benefits outweigh the risks. == Miscelleaneous * Per patient's request, a living will document was completed with me assisting. Family was given a copy. A copy was placed on the paper chart. Another copy was faxed to medical records to scan into the electronic medical record. * The patient was given a completed [facility] DNR form. Family will keep this at home. They are quite familiar with this document as they had one at home for the patient's father. * The patient indicated he would appreciate visits from the yarn examiner.. The mottle lay up operator is aware of the patient and has already visited today. * Patient is realistic about his illness. His father under hospice care and he is familiar with those services. He understands that he can transition to hospice care at anytime that he feels that the burdens of ongoing aggressive care outweigh the benefits. == Palliative care contact information provided. == Palliative care we'll continue to follow to assist with symptom management and to further clarify goals of medical treatment as the clinical course evolves. . Time Spent Total Floor Time (mins): 85 (Total floor time includes chart review; patient exam; above referenced bedside discussion with patient and his mother; assistance with completion of advance directives; collaboration with hospitalist.) Face to Face Time (mins): 60 >50% Counseling/Coord of Care: Yes Thank you for the opportunity to participate in the care of Mr. Henderson. . Collaborating MD Comments To help prompt me to consider important information that might be impacting today's encounter and assessment, information from prior notes written by myself or my colleagues may have been "brought forward" into today's note. My signature on this note, however, is an attestation that I personally performed the exam, history, and/or decision-making noted today, and, unless otherwise indicated, the interactions with patient, family, and staff as well as the review of records all occurred today. I also attest that the listed assessment and stated plan reflect my best clinical judgment today based on the combination of historical information, prior notes, and today's exam/ interactions. When time spent is documented, it refers only to time spent today by the signer, or if indicated, combined time spent today by collaborating physician/nurse practitioner. . Billy Sweet MD Jul 20, 2016 13:45
[2016-07-20] MEDS: LORazepam 0.5 MG TAB PO SCH ×2 (13:50→21:36)
--- NOTE | 2016-07-20 14:42 | HHI.HP ---
[facility] Unknown Admission Diagnosis sepsis Diagnoses: (1) Sepsis Diagnosis: Principal (2) Leucocytosis Diagnosis: Principal (3) Bilateral hydronephrosis Diagnosis: Principal (4) Urinary tract infection Diagnosis: Principal (5) Invasive carcinoma of urinary bladder Diagnosis: Secondary Chief Complaint: Flank pain, fever Travel History International Travel<30 Days: No Contact w/Intl Traveler <30 Da: No Traveled to Known Affected Are: No History of Present Illness 50-year-old rather unfortunate male with known history of metastatic invasive carcinoma the urinary bladder who presented to hospital because of abdominal fullness and flank pain. Patient states it is undergoing outpatient management with urology. He has undergone urostomy, bladder removal. He did have recent CT scan done, however he has not had follow-up for results at this time. However over the last few days he noticed that he is experiencing some back pain. He has had previous infection before in he is well aware of the pain that he experiences. This is the same time of pain that he had so he came to the hospital for evaluation. Patient had workup done emergency department found to have sepsis with leukocytosis, sinus tachycardia, urinary tract infection. Patient started on empirical antibiotics to include vancomycin, cefepime. Is recommended by ER physician the patient be admitted for further evaluation management. Review of Systems Constitutional: DENIES: Diaphoretic episodes, Fatigue, Fever, Weight gain, Weight loss, Chills, Dizziness, Change in appetite, Night Sweats Eyes: DENIES: Blurred vision, Diplopia, Eye inflammation, Eye pain, Vision loss , Double Vision Ears, nose, mouth, throat: DENIES: Vertigo, Nasal discharge, Throat pain, Ear Pain, Running Nose, Sinus Pain Respiratory: DENIES: Apneas, Cough, Snoring, Wheezing, Hemoptysis, Sputum production, Shortness of breath Cardiovascular: DENIES: Chest pain, Palpitations, Syncope, Dyspnea on Exertion , Lower Extremity Edema, Orthopnea Gastrointestinal: COMPLAINS OF: Abdominal pain, DENIES: Black stools, Bloody stools, Constipation, Diarrhea, Nausea, Vomiting, Difficulty Swallowing, Anorexia Neurologic: DENIES: Abnormal gait, Headache, Localized weakness, Paresthesias, Seizures, Speech Problems, Tremor, Poor Balance Psychiatric: DENIES: Anxiety, Confusion, Mood changes, Depression Past Family Social History Past Medical History Invasive bladder cancer Hypertension History of neurogenic bladder History of spinal tumor status post resection Past Surgical History Spinal tumor resection Bladder resection Cystoscopies Radical cystoprostatectomy with bilateral pelvis lymph node dissection and creation of ileal conduit Reported Medications Reported Meds & Active Scripts Active Hydrocodone-Acetaminophen 10-300 Tab 1 Tab PO Q4H PRN Allergies: Coded Allergies: No Known Allergies (Unverified , 07/19/16) Family History Reviewed and mother is doing well without any medical problems. Father from lymphoma and had coronary disease with myocardial infarction at early age Social History Patient quit smoking January 2016 when he was diagnosed with cancer. Prior to that he smoked one pack a cigarettes a day since he was 16 years old. Patient also quit drinking alcohol at the same time. Patient denies any illicit drugs. Physical Exam Vital Signs Vital Signs Date Time Temp Pulse Resp B/P Pulse Ox O2 Delivery O2 Flow Rate FiO2 07/20/16 12:19 18 07/20/16 12:19 18 07/20/16 12:00 101.2 111 20 122/70 99 07/20/16 08:00 98.2 100 20 112/69 100 07/20/16 04:00 100.6 07/20/16 00:00 100.1 101 18 113/33 99 07/19/16 20:39 98 Nasal Cannula 2.00 07/19/16 20:00 97.1 111 20 133/75 99 07/19/16 18:40 18 07/19/16 18:34 101.2 108 18 109/57 100 Nasal Cannula 2 07/19/16 18:11 97 21 07/19/16 15:41 137 07/19/16 15:20 98.1 137 18 156/89 98 07/19/16 15:05 97 Room Air 07/19/16 15:05 20 97 Room Air Physical Exam GENERAL: Well-developed, well-nourished, in no acute distress. alert and orientated HEENT: Head is normocephalic without any lesions or masses noted. Facial features are symmetric. Eyes: Pupils equal round reactive to light. Extraocular muscles are intact. Conjunctivae were clear. Oropharyngeal: Pharynx without any erythema edema. Tongue is midline without deviation. Buccal mucosa is moist without any masses or lesions NECK: Supple without any masses. Trachea midline no deviation. No JVD, no bruits are appreciated CARDIAC: Regular rhythm, regular rate. S1/S2 are heard. No murmurs gallops or rubs. LUNGS: Clear to auscultation bilaterally. No wheeze, rhonchi or rales. No use of accessory muscles on inspiration or expiration. ABDOMEN: Soft, nontender. Nondistended. Bowel sounds heard in all 4 quadrants. No organomegaly or masses. Negative rebound, negative guarding. Ileal conduit noted EXTREMITIES: No edema, pulses are equal bilaterally. No cyanosis or clubbing NEUROLOGY: Mood and affect appear appropriate. Cranial nerves II through XII grossly intact. Muscle strength 5/5 in upper and lower extremities bilaterally. Deep tendon reflexes are 2+ in upper and lower extremities bilaterally. Laboratory Laboratory Tests Test 07/19/16 07/19/16 07/19/16 07/20/16 15:00 15:20 17:25 06:19 White Blood Count 37.8 33.5 Red Blood Count 3.15 2.80 Hemoglobin 9.5 8.5 Hematocrit 28.0 25.2 Mean Corpuscular Volume 88.8 90.0 Mean Corpuscular Hemoglobin 30.1 30.5 Mean Corpuscular Hemoglobin 33.9 33.8 Concent Red Cell Distribution Width 15.0 15.1 Platelet Count 384 355 Mean Platelet Volume 7.2 7.0 Neutrophils (%) (Auto) 87.0 Lymphocytes (%) (Auto) 4.4 Monocytes (%) (Auto) 5.7 Eosinophils (%) (Auto) 2.5 Basophils (%) (Auto) 0.4 Neutrophils # (Auto) 29.2 Lymphocytes # (Auto) 1.5 Monocytes # (Auto) 1.9 Eosinophils # (Auto) 0.8 Basophils # (Auto) 0.1 CBC Comment AUTO DIFF AUTO DIFF Differential Total Cells 100 100 Counted Neutrophils % (Manual) 81 84 Band Neutrophils % 6 3 Lymphocytes % 2 4 Monocytes % 9 3 Eosinophils % 2 6 Neutrophils # (Manual) 32.9 29.1 Differential Comment FINAL DIFF FINAL DIFF MANUAL MANUAL Platelet Estimate HIGH NORMAL Platelet Morphology Comment NORMAL NORMAL Prothrombin Time 13.0 Prothromb Time International 1.2 Ratio Activated Partial 31.3 Thromboplast Time Sodium Level 134 139 Potassium Level 3.6 3.8 Chloride Level 99 107 Carbon Dioxide Level 21.4 20.6 Anion Gap 14 11 Blood Urea Nitrogen 13 11 Creatinine 0.79 0.69 Estimat Glomerular Filtration 104 122 Rate Random Glucose 133 102 Lactic Acid Level 2.4 1.0 Calcium Level 8.7 8.6 Total Bilirubin 0.8 Aspartate Amino Transf 17 (AST/SGOT) Alanine Aminotransferase 40 (ALT/SGPT) Alkaline Phosphatase 171 Total Protein 7.1 Albumin 2.3 Lipase 87 Urine Collection Type CATH Urine Color YELLOW Urine Turbidity CLEAR Urine pH 6.5 Urine Specific [place] 1.010 Urine Protein 30 Urine Glucose (UA) NEG Urine Ketones NEG Urine Occult Blood LARGE Urine Nitrite POS Urine Bilirubin NEG Urine Leukocyte Esterase LARGE Urine RBC 10-14 Urine WBC 25-49 Urine Amorphous Sediment MOD Urine Bacteria MOD Microscopic Urinalysis Comment CULTURE INDICATED Dohle Bodies PRESENT Date/Time Procedure Status Source Growth 07/19/16 15:20 Urine Culture Received Urine Catheterized Urine Pending 07/19/16 15:15 Aerobic Blood Culture - Preliminary Resulted Blood Peripheral NO GROWTH IN 1 DAY 07/19/16 15:15 Anaerobic Blood Culture - Preliminary Resulted Blood Peripheral NO GROWTH IN 1 DAY Result Diagram: 07/20/16 0619 07/20/16 0619 Imaging Last Impressions Chest X-Ray 07/19/16 1457 Signed Impressions: Service Date/Time: Tuesday, July 19, 2016 15:14 - CONCLUSION: 1. The [id number]-Jqry in good position. 2. The lungs are clear. Salvatore Tolbert MD Septic Shock Reassessment Heart: Regular rate and rhythm Lungs: Clear Skin: Warm, Moist Peripheral Pulses: Bounding Right Radial Bounding Left Radial Capillary Refill: Brisk, <2 seconds Assessment and Plan Assessment and Plan Sepsis Patient meets criteria on presentation with leukocytosis, sinus tachycardia, lactic acidosis, urinary tract infection. Patient started on empirical antibiotics include vancomycin, cefepime Cultures have been taken and pending at this time. Complicated urinary tract infection Patient with history of invasive bladder cancer, ileal conduit, recent CT scan does indicate hydronephrosis, hydroureters. Continue above antibiotics Follow cultures for appropriate antibiotics Leukocytosis Secondary to infection Continue monitor Invasive bladder cancer with hydronephrosis, hydroureters Discuss with Dr. Lee, patient's urologist. He recommended the patient undergo renal scan with Lasix washout to evaluate if patient has chronic hydronephrosis, hydroureter secondary to the ileal conduit. Urologist indicates that if it is obstructive in nature then patient may need some dilation of the ureters with the ileal conduit versus bilateral nephrostomy tubes. Senior Game Designer/oncologist has evaluated the patient and recommending palliative chemotherapy versus checkpoint inhibitor. Palliative care physician has evaluated patient for better pain control and management Renal scan with Lasix was performed which does show high-grade obstruction on the right and partial obstruction on the left. These results were relayed to the patient's urologist Dr. Lee who recommended the patient will require bilateral percutaneous nephrostomy tubes. Discuss with interventional radiology who indicated that they will be glad to perform the procedure, however patient will likely need to be managed at the main hospital for tube management, monitoring for worsening sepsis, since patient is going to need internalization of stenting in 4-5 days patient will require to be at the main hospital for further management. DVT prevention Sequential compression devices Written by Willie Hermosillo PA-C, acting as scribe for Dr. Galloway on 07/20/16 at 1630. The documentation accurately reflects the work and decisions performed face-to- face by Dr. Galloway on 07/20/16 at 1630. Physician Certification 2 Midnight Certification Type: Admission for Inpatient Services Order for Inpatient Services The services are ordered in accordance with Medicare regulations or non- Medicare payer requirements, as applicable. In the case of services not specified as inpatient-only, they are appropriately provided as inpatient services in accordance with the 2-midnight benchmark. Estimated LOS (days): 2 days is the estimated time the patient will need to remain in the hospital, assuming treatment plan goals are met and no additional complications. Post-Hospital Plan: Not yet determined Problem Qualifiers (1) Sepsis: Qualified Code: A41.9 - Sepsis, due to unspecified organism (2) Leucocytosis: Qualified Code: D72.829 - Leukocytosis, unspecified type Willie Hermosillo Jul 20, 2016 14:42
[2016-07-20] MEDS ORDERED: FUROSEMIDE 40 MG/4 ML VIAL IV PUSH ONE (15:35)
[2016-07-20 16:00] VITALS: BP 130/77; PULSE 110; RESP 20; TEMP 100.5; O2SAT 98
--- NOTE | 2016-07-20 16:25 | RADHPO ---
EXAM DATE/TIME: 07/20/2016 15:34 [facility] COMPARISON: CT ABDOMEN & PELVIS W & W/O CONTRAST, July 13, 2016, 13:43. INDICATIONS : Hydronephrosis. DOSE: 21 mCi Tc99m DTPA IV MEDICATION: 40 mg Lasix IV MEDICAL HISTORY : Hypertension. Carcinoma, bladder. SURGICAL HISTORY : Prostatectomy. Cystostopy, bladder surgery and tumor removed from spine. Urostomy. ENCOUNTER: Subsequent ACUITY: >1 yr PAIN SCALE: 0/10 LOCATION: Abdomen. TECHNIQUE: Dynamic images were performed in the posterior projection for a total of 28 minutes. FINDINGS: FLOW: There is symmetric arrival of bolus to both kidneys. There is homogeneous perfusion to both kidneys. EXCRETION: There is decreasing function with poor target to background ratio and slightly delayed cortical trans it time. There are findings of obstruction bilaterally which is partial right greater than left. Ther e is 40% emptying on the left and 10% emptying on the right CONCLUSION: High grade obstruction on the right with partial obstruction on the left. Abdullahi Dos Santos MD on July 20, 2016 at 16:20 Board Certified Radiologist. This report was verified electronically.
[2016-07-20] MEDS: LORazepam 1 MG TAB PO PRN (18:36)
[2016-07-20 20:00] VITALS: BP 131/71; PULSE 116; RESP 18; TEMP 99.5; O2SAT 97
[2016-07-21] VITALS (8 sets, daily range): BP systolic 112–137; BP diastolic 56–71; PULSE 105–114; RESP 16–20; TEMP 97.6–100.2; O2SAT 95–97
[2016-07-21] MEDS: HYDROmorphone HCL PF 1 MG/ML VIAL IV PUSH PRN ×4 (01:30→21:22)
[2016-07-21] MEDS: LORazepam 1 MG TAB PO PRN (01:33)
[2016-07-21] MEDS: VANCOMYCIN INJ 1,100 MG in SODIUM CHLOR 0.9% 250 ML INJ 250 ML IV SCH (01:41)
[2016-07-21] MEDS ORDERED: VANCOMYCIN TROUGH XX ONE (01:45)
[2016-07-21 01:51] LABS: POTASSIUM 3.4 MEQ/L (3.5-5.1)
[2016-07-21 01:54] LABS: BICARBONATE 24.1 MEQ/L (21.0-32.0); MAGNESIUM 1.6 MG/DL (1.5-2.5)
[2016-07-21] MEDS: LORazepam 0.5 MG TAB PO SCH ×3 (05:33→21:12)
[2016-07-21] MEDS: SODIUM CHLOR 0.9% 1000 ML INJ 1,000 ML IV SCH ×3 (05:35→17:05)
[2016-07-21] MEDS: CEFEPIME INJ 1,000 MG in SODIUM CHLORIDE 0.9% INJ 100 ML IV SCH ×2 (08:07→15:42)
[2016-07-21] MEDS: SODIUM CHLORIDE 0.9% FLUSH 5 ML FLUSH FLUSH SCH ×2 (08:08→21:00)
[2016-07-21] MEDS: METHADONE HCL 10 MG TAB PO SCH ×2 (08:12→21:12)
[2016-07-21] MEDS: CITALOPRAM HYDROBROMIDE 20 MG TAB PO SCH (08:12)
--- NOTE | 2016-07-21 08:28 | PD.CONS ---
HPI Service Urology Consult Requested By Reason for Consult Invasive bladder Cancer, Hydronephrosis Primary Care Physician Unknown Diagnosis: (1) Sepsis ICD Code: A41.9 (2) Leucocytosis ICD Code: D72.829 (3) Bilateral hydronephrosis ICD Code: N13.30 (4) Urinary tract infection ICD Code: N39.0 (5) Invasive carcinoma of urinary bladder ICD Code: C67.9 History of Present Illness 50yo male with HG urothelial carcinoma of the bladder who recently underwent Cystectomy with ileal conduit urinary diversion with Dr. Lee on Jun 18, 2016 now admitted with evidence of sepsis and bilateral hydronephrosis. Renal scan identified bilateral ureteral obstruction. Bilateral nephrostomy tubes are planned to be placed today. Patient currently resting comfortably in bed, no fevers, minimal pain. Review of Systems ROS Limitations: Clinical Condition Constitutional: COMPLAINS OF: Fever Endocrine: DENIES: Polyuria Eyes: DENIES: Blurred vision Ears, nose, mouth, throat: DENIES: Hearing loss Respiratory: DENIES: Apneas Cardiovascular: DENIES: Chest pain Gastrointestinal: COMPLAINS OF: Abdominal pain Genitourinary: DENIES: Hematuria Musculoskeletal: COMPLAINS OF: Back pain, DENIES: Joint pain Integumentary: DENIES: Rash Neurologic: DENIES: Headache Psychiatric: DENIES: Anxiety Except as stated in HPI: all other systems reviewed are Neg Past Family Social History Past Medical History Bladder cancer -- metastatic Anemia Hypertension Anxiety Past Surgical History 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 Reported Medications Reported Meds & Active Scripts Active Hydrocodone-Acetaminophen 10-300 Tab 1 Tab PO Q4H PRN Allergies: Coded Allergies: No Known Allergies (Unverified , 07/19/16) Active Ordered Medications Current Medications Medications (Trade) Dose Ordered Sig/Ambika Route Start Time Stop Time Status Last Admin (NS 1000 ml Inj) 1,000 ml @ 100 mls/hr Q10H IV 07/19/16 17:44 07/21/16 05:35 (NS Flush) 2 ml UNSCH PRN FLUSH 07/19/16 17:45 07/20/16 05:58 IV Flush 2 ml 2 ml BID FLUSH 07/19/16 21:00 07/21/16 08:08 Cefepime HCl 1000 mg/Sodium Chloride 100 ml @ 200 mls/hr Q8H IV 07/20/16 00:00 07/21/16 08:07 Pharmacy Profile Note 0 ml @ 0 mls/hr UNSCH OTHER 07/19/16 18:00 (Vancomycin Inj/ NS 250 ml Inj) 261 ml @ 250 mls/hr Q8H IV 07/20/16 02:00 07/21/16 01:41 (Tylenol) 650 mg Q4H PRN PO 07/19/16 20:00 07/20/16 11:42 (Dolophine) 5 mg Q12HR PO 07/20/16 13:00 07/21/16 08:12 (CeleXA) 20 mg DAILY PO 07/20/16 13:00 07/20/16 13:00 (Ativan) 0.5 mg Q8HR PO 07/20/16 14:00 07/21/16 05:33 (Ativan) 0.5 mg Q6H PRN PO 07/20/16 13:00 (Ativan) 1 mg Q6H PRN PO 07/20/16 13:00 07/21/16 01:33 (Dilaudid Pf Inj) 0.75 mg Q3HR PRN IV PUSH 07/20/16 13:45 07/21/16 01:30 Family History The patient's father under hospice care of lymphoma. Father also had early onset coronary artery disease with a myocardial infarction at age 42 Mother is alive and well. The patient is an only child Social History Tobacco: Had been a one pack per day smoker up until the time of his cancer diagnosis. Alcohol: No history of abuse. No history of abuse. Physical Exam Vital Signs Vital Signs Date Time Temp Pulse Resp B/P Pulse Ox O2 Delivery O2 Flow Rate FiO2 07/21/16 04:46 97.6 105 18 135/61 97 07/21/16 02:45 98.7 109 16 120/57 96 07/21/16 00:00 98.6 112 20 137/71 97 07/20/16 20:00 99.5 116 18 131/71 97 07/20/16 20:00 97 21 07/20/16 16:00 100.5 110 20 130/77 98 07/20/16 14:31 18 07/20/16 12:19 18 07/20/16 12:19 18 07/20/16 12:00 101.2 111 20 122/70 99 Physical Exam GENERAL: This is a well-nourished, well-developed patient, in no apparent distress. SKIN: No rashes, ecchymoses or lesions. Cool and dry. HEAD: Atraumatic. Normocephalic.. EYES: Extraocular motions intact. No scleral icterus. No injection or drainage. ENT: Nose without bleeding, purulent drainage. Airway patent. NECK: Trachea midline. No JVD or lymphadenopathy. CARDIOVASCULAR: Normal pulses RESPIRATORY: Nonlabored, equal chest rise GASTROINTESTINAL: Abdomen soft, non-tender, nondistended. GENITOURINARY: Ileal conduit with clear yellow urine. Midline incision healing well MUSCULOSKELETAL: Extremities without clubbing, cyanosis, or edema. NEUROLOGICAL: Awake and alert. Motor and sensory grossly within normal limits. Normal speech. Laboratory Laboratory Tests Test 07/21/16 01:25 Sodium Level 139 Potassium Level 3.4 Chloride Level 104 Carbon Dioxide Level 24.1 Anion Gap 11 Blood Urea Nitrogen 8 Creatinine 0.68 Estimat Glomerular Filtration 124 Rate Random Glucose 98 Calcium Level 8.3 Magnesium Level 1.6 Date/Time Procedure Status Source Growth 07/19/16 15:20 Urine Culture - Preliminary Resulted Urine Catheterized Urine Gram Negative Ramirez 07/19/16 15:15 Aerobic Blood Culture - Preliminary Resulted Blood Peripheral NO GROWTH IN 1 DAY 07/19/16 15:15 Anaerobic Blood Culture - Preliminary Resulted Blood Peripheral NO GROWTH IN 1 DAY Result Diagram: 07/20/16 0619 07/21/16 0125 Imaging Last 48 hours Impressions Renal Scan w/Medication NM 07/20/16 0000 Signed Impressions: Service Date/Time: Wednesday, July 20, 2016 15:34 - CONCLUSION: High grade obstruction on the right with partial obstruction on the left. Abdullahi Dos Santos MD Chest X-Ray 07/19/16 1087 Signed Impressions: Service Date/Time: Tuesday, July 19, 2016 15:14 - CONCLUSION: 1. The Evakta-o-Fhfi in good position. 2. The lungs are clear. Salvatore Tolbert MD Assessment and Plan Problem List: (1) Urinary tract infection ICD Code: N39.0 Status: Acute (2) Bilateral hydronephrosis ICD Code: N13.30 Status: Chronic (3) Invasive carcinoma of urinary bladder ICD Code: C67.9 Status: Acute Assessment and Plan -Plan for Bilateral nephrostomy tubes today -Will discuss with and defer further care as patient is known to him -Please call with questions Problem Qualifiers (1) Sepsis: Qualified Code: A41.9 - Sepsis, due to unspecified organism (2) Leucocytosis: Qualified Code: D72.829 - Leukocytosis, unspecified type Willie Babb MD Jul 21, 2016 08:28
[2016-07-21 08:49] LABS: AUTOMATED NEUTROPHIL # 30.2 TH/MM3 (1.8-7.7); BASOPHIL # 0.1 TH/MM3 (0-0.2); BASOPHIL % 0.2 % (0.0-2.0); EOSINOPHIL # 0.7 TH/MM3 (0-0.4); EOSINOPHIL % 2.2 % (0.0-4.0); HEMATOCRIT 22.8 % (39.0-51.0); LYMPH % 3.3 % (9.0-44.0); LYMPHOCYTE # 1.1 TH/MM3 (1.0-4.8); MEAN CELL VOLUME 90.3 FL (80.0-100.0); MEAN CORPUSCULAR HEMOGLOBIN 30.7 PG (27.0-34.0); MONO % 4.3 % (0.0-8.0); PLATELET COUNT 322 TH/MM3 (150-450); RED BLOOD COUNT 2.52 MIL/MM3 (4.50-5.90); RED CELL DISTRIBUTION WIDTH 15.7 % (11.6-17.2); WHITE BLOOD COUNT 33.5 TH/MM3 (4.0-11.0)
[2016-07-21 08:50] LABS: APTT (PATIENT) 33.1 SEC (24.3-30.1); INTERNATIONAL NORMALIZED RATIO 1.3 RATIO; PROTHROMBIN TIME - PATIENT 14.2 SEC (9.8-11.6)
[2016-07-21 08:51] LABS: HEMO FLAGS AUTO DIFF
[2016-07-21 10:23] LABS: VANCOMYCIN TROUGH 19.4 MCG/ML (5.0-10.0)
[2016-07-21 11:11] LABS: BANDS 37 % (0-6); EOSINOPHILS 1 % (0-4); NEUTROPHIL # MANUAL DIFF 31.5 TH/MM3 (1.8-7.7); POLYS (SEG NEUTROPHILS) 57 % (16-70); WBC DIFF SAMPLE 100
[2016-07-21 11:12] LABS: PLATELET ESTIMATE SMEAR NORMAL (NORMAL); PLATELET MORPHOLOGY NORMAL (NORMAL); SCAN/DIFF FINAL DIFF MANUAL
--- NOTE | 2016-07-21 11:24 | HHI.PR ---
Subjective Remarks Patient states that overall his pain has been control and not getting much IV pain medication. However he is still concerned he is on methadone and would prefer another pain medication. He is reluctant to take Celexa has refused to take that medication. He understands he'll need nephrostomy tubes. He confirms a DO NOT RESUSCITATE status. Objective Vitals Vital Signs Date Time Temp Pulse Resp B/P Pulse Ox O2 Delivery O2 Flow Rate FiO2 07/21/16 08:00 97.9 107 16 122/56 95 07/21/16 04:46 97.6 105 18 135/61 97 07/21/16 02:45 98.7 109 16 120/57 96 07/21/16 00:00 98.6 112 20 137/71 97 07/20/16 20:00 99.5 116 18 131/71 97 07/20/16 20:00 97 21 07/20/16 16:00 100.5 110 20 130/77 98 07/20/16 14:31 18 07/20/16 12:19 18 07/20/16 12:19 18 07/20/16 12:00 101.2 111 20 122/70 99 I/O 07/20/16 07/20/16 07/20/16 07/21/16 07/21/16 07/21/16 07:00 15:00 23:00 07:00 15:00 23:00 Intake Total 1223 ml 2296 ml 1467 ml Output Total 2200 ml 1550 ml 400 ml Balance 1223 ml -2200 ml 746 ml 1067 ml Intake Oral 240 ml 740 ml 480 ml IV Total 983 ml 1556 ml 987 ml Output Urine Total 2200 ml 1550 ml 400 ml # Voids 2 # Bowel Movements 0 0 0 0 Result Diagram: 07/21/16 0801 07/21/16 0125 Other Results Microbiology Date/Time Procedure Status Source Growth 07/19/16 15:20 Urine Culture - Preliminary Resulted Urine Catheterized Urine Gram Negative Ramirez 07/19/16 15:15 Aerobic Blood Culture - Preliminary Resulted Blood Peripheral Gram Positive Cocci 07/19/16 15:15 Anaerobic Blood Culture - Preliminary Resulted Blood Peripheral NO GROWTH IN 2 DAYS Objective Remarks GENERAL: This is a well-nourished, well-developed patient, in no apparent distress. CARDIOVASCULAR: Regular rate and rhythm RESPIRATORY: Clear to auscultation. Breath sounds equal bilaterally. No wheezes , rales, or rhonchi. GASTROINTESTINAL: Abdomen soft, nondistended. Mild bilateral flank pain tenderness MUSCULOSKELETAL: Extremities without clubbing, cyanosis, or edema. NEURO: Alert & Oriented x4 to person, place, time, situation. Moves all ext x4 A/P Problem List: (1) Sepsis ICD Code: A41.9 Status: Acute (2) Leucocytosis ICD Code: D72.829 Status: Acute (3) Bilateral hydronephrosis ICD Code: N13.30 Status: Chronic (4) Urinary tract infection ICD Code: N39.0 Status: Acute (5) Invasive carcinoma of urinary bladder ICD Code: C67.9 Status: Acute Assessment and Plan Severe Sepsisclinically improving with source being a copy urinary tract infection. Patient meets criteria on presentation with leukocytosis, sinus tachycardia, lactic acidosis elevation greater than 2, urinary tract infection. Continue antibiotics vancomycin, cefepime, awaiting final blood cultures and urine cultures. Complicated urinary tract infection Patient with history of invasive bladder cancer, ileal conduit, recent CT scan does indicate hydronephrosis, hydroureters. Continue above antibiotics and follow-up blood cultures. Leukocytosis Secondary to infection Continue monitor, continue to elevate however slowly trending down. Invasive bladder cancer with hydronephrosis, hydroureters Admitting physician discussed with Dr. Lee, patient's urologist. He recommended the patient undergo renal scan with Lasix washout to evaluate if patient has chronic hydronephrosis, hydroureter secondary to the ileal conduit. Urology coverage today is recommending bilateral nephrostomy tube placement. Vice President Sales/oncologist has evaluated the patient and recommending palliative chemotherapy versus checkpoint inhibitor. Palliative care physician has evaluated patient for better pain control and management on methadone however patient is requesting another medication. He is also refusing to take Celexa which I will place on hold until further evaluation with palliative care service. Renal scan with Lasix was performed which does show high-grade obstruction on the right and partial obstruction on the left. These results were relayed to the patient's urologist Dr. Lee yesterday who recommended the patient will require bilateral percutaneous nephrostomy tubes. Previous hospitalist discuss with interventional radiology who indicated that they will be glad to perform the procedure, however patient will likely need to be managed at the main hospital for tube management, monitoring for worsening sepsis, since patient is going to need internalization of stenting in 4-5 days patient will require to be at the main hospital for further management. DVT prophylaxis Sequential compression devices, anticoagulation on hold due to pending procedure. DO NOT RESUSCITATE. Discharge Planning Home when stable. Problem Qualifiers (1) Sepsis: Qualified Code: A41.9 - Sepsis, due to unspecified organism (2) Leucocytosis: Qualified Code: D72.829 - Leukocytosis, unspecified type Nubia Grewal MD Jul 21, 2016 11:23
[2016-07-21] MEDS ORDERED: MAGNESIUM HYDROXIDE SUSP 30 ML CUP PO PRN (11:30)
[2016-07-21] MEDS: VANCOMYCIN 1,000 MG/NS 250 ML IV SCH ×4 (12:36→17:08)
--- NOTE | 2016-07-21 14:09 | HHI.HCPN ---
Reason for visit a. To assist with evaluation and management of symptoms including: pain; anxiety; nausea/vomiting b. To assist medical decision maker(s) with: better understanding of current medical conditions; weighing benefits/burdens of medical treatment options; making medical treatment decisions. . (RADHA CASILLAS) Subjective/Interval History Patient was transferred from [facility] to [facility] overnight for placement of bilateral nephrostomy tubes. Renal scan revealed high-grade obstruction on the right with partial distraction on the left. Patient seen and examined in room. He awakens easily when I enter the room. He is tired, though reports the Lorazepam helped him sleep which reports he hadn't been able to sleep well for some time. He has had 2 doses of PRN Lorazepam in the past 24 hours. For now will continue current dose of scheduled Lorazepam and monitor PRN need. He reports pain in his back rates 7/10 during my visit. He reports pain increases with movement. Patient was started on Methadone 5mg PO every 12 hours ATC on 07/20/16 (1st dose 1300). He has had 3 doses of Methadone at the time of my visit. He was concerned about Methadone being for "heroine addicts." I explained the use as a long acting pain medication and why we feel this will help his pain, he agrees he would like to continue as he wants his pain to be better controlled. He denies any adverse reaction. I reminded him we will not see the full effect of the medication for at least 72 hours after initiation. I have encouraged him to use PRN Dilaudid for break though pain. Patient has had 3 doses of Dilaudid 0.75 mg IV in the past 24 hours. He appreciates the time spent in making sure he understands the use of medication. He indicates he does NOT want to continue the Citalopram, he reports he does not feel depressed, he is concerned about taking too many new medications at once, he does not feel "depressed." He may be open to considering in the future, but does not want it now. Patient verbalizes some frustration with ongoing medical problems. He indicates fear that he will need another "big surgery" and states that he's not sure if he can go through that again. We discussed nephrostomy tube placement and he is willing to proceed. He remains hopeful that nephrostomy tubes will be temporary and that he will be able to have additional treatment upon discharge. He welcomes continued palliative care visits and appreciates assistance with pain and anxiety management. Tmax 100.2. Tachycardic. Blood pressure stable. WBC remains elevated at 33.5, hemoglobin 7.8, hematocrit 22.8, platelet count 322, neutrophil 90.0%. Creatinine remains normal 0.68. Potassium 3.4. Urine culture preliminarily positive gram-negative rods. Blood culture staff coagulase negative in aerobic bottle. . Family/friend interactions No family at bedside. . (RADHA CASILLAS) Advance Directives Living Will: Copy in medical record Health Care Surrogate: Copy in medical record Durable Power of Bilingual Speech Language Pathologist: Never completed (RADHA CASILLAS) Advance Directive Specifics Date completed: The patient completed a living will with my assistance on 07/20/16. . Health Care Surrogate(s): The patient has designated his Payal Suazo his health care surrogate. . Documented care wishes: The patient is completed a standard [place] living will indicating that he would not want life prolonging measures should he be found to have an end-stage condition; terminal condition; or persistent vegetative state. . Significant change in goals: NO CODE. Patient desires continued aggressive care short of NO CODE STATUS. He desires continued pain and anxiety management. . (RADHA CASILLAS) Objective Vital Signs Date Time Temp Pulse Resp B/P Pulse Ox O2 Delivery O2 Flow Rate FiO2 07/21/16 12:32 96 07/21/16 12:00 100.2 114 16 120/59 96 07/21/16 08:00 97.9 107 16 122/56 95 07/21/16 04:46 97.6 105 18 135/61 97 07/21/16 02:45 98.7 109 16 120/57 96 07/21/16 00:00 98.6 112 20 137/71 97 07/20/16 20:00 99.5 116 18 131/71 97 07/20/16 20:00 97 21 07/20/16 16:00 100.5 110 20 130/77 98 07/20/16 14:31 18 Intake & Output 07/21/16 07/21/16 07:00 19:00 Intake Total 3263 ml Output Total 1250 ml Balance 2013 ml Intake Oral 720 ml IV Total 2543 ml Output Urine Total 1250 ml # Bowel Movements 0 Physical Exam CONSTITUTIONAL/GENERAL: This is a thin male who grimaces with movement. Awake, alert, conversant. TUBES/LINES/DRAINS: [id number] right chest; ileoconduit, SCD's. SKIN: No jaundice, or lesions. Eczematous type rash on forehead. Healed abdominal surgical scars. Skin temperature appropriate. Not diaphoretic. ENT: Hearing grossly normal. Nose without bleeding or purulent drainage. Throat without visible erythema, exudates, masses, or lesions. CARDIOVASCULAR: tachycardic. RESPIRATORY/CHEST: Symmetric, unlabored respirations. Clear to auscultation. Breath sounds equal bilaterally. Right sided [id number]. GASTROINTESTINAL: Diffuse mild-moderate tenderness across the lower abdomen. Abdomen soft, nondistended. No hepato-splenomegaly, or palpable masses. No guarding. Bowel sounds present. Ileoconduit present and functioning. GENITOURINARY: Ileoconduit functioning. MUSCULOSKELETAL: Extremities without clubbing, cyanosis, or edema. No mottling. NEUROLOGICAL: Awake and alert. Motor and sensory grossly within normal limits. Follows commands. Cognitively sharp. Moves all extremities. PSYCHIATRIC: Appears relaxed. No obvious depression. . . (RADHA CASILLAS-Alison) Diagnostic Tests Laboratory Laboratory Tests Test 07/19/16 07/19/16 07/19/16 07/20/16 15:00 15:20 17:25 06:19 Prothrombin Time 13.0 SEC (9.8-11.6) Prothromb Time International 1.2 RATIO Ratio Activated Partial 31.3 SEC Thromboplast Time (24.3-30.1) Sodium Level 134 MEQ/L 139 MEQ/L (136-145) (136-145) Potassium Level 3.6 MEQ/L 3.8 MEQ/L (3.5-5.1) (3.5-5.1) Chloride Level 99 MEQ/L 107 MEQ/L (98-107) (98-107) Carbon Dioxide Level 21.4 MEQ/L 20.6 MEQ/L (21.0-32.0) (21.0-32.0) Anion Gap 14 MEQ/L (5-15) 11 MEQ/L (5-15) Blood Urea Nitrogen 13 MG/DL (7-18) 11 MG/DL (7-18) Creatinine 0.79 MG/DL 0.69 MG/DL (0.60-1.30) (0.60-1.30) Estimat Glomerular Filtration 104 ML/MIN 122 ML/MIN Rate (>89) (>89) Random Glucose 133 MG/DL 102 MG/DL (74-106) (74-106) Lactic Acid Level 2.4 mmol/L 1.0 mmol/L (0.4-2.0) (0.4-2.0) Calcium Level 8.7 MG/DL 8.6 MG/DL (8.5-10.1) (8.5-10.1) Total Bilirubin 0.8 MG/DL (0.2-1.0) Aspartate Amino Transf 17 U/L (15-37) (AST/SGOT) Alanine Aminotransferase 40 U/L (12-78) (ALT/SGPT) Alkaline Phosphatase 171 U/L (45-117) Total Protein 7.1 GM/DL (6.4-8.2) Albumin 2.3 GM/DL (3.4-5.0) Lipase 87 U/L (73-393) White Blood Count 37.8 TH/MM3 33.5 TH/MM3 (4.0-11.0) (4.0-11.0) Red Blood Count 3.15 MIL/MM3 2.80 MIL/MM3 (4.50-5.90) (4.50-5.90) Hemoglobin 9.5 GM/DL 8.5 GM/DL (13.0-17.0) (13.0-17.0) Hematocrit 28.0 % 25.2 % (39.0-51.0) (39.0-51.0) Mean Corpuscular Volume 88.8 FL 90.0 FL (80.0-100.0) (80.0-100.0) Mean Corpuscular Hemoglobin 30.1 PG 30.5 PG (27.0-34.0) (27.0-34.0) Mean Corpuscular Hemoglobin 33.9 % 33.8 % Concent (32.0-36.0) (32.0-36.0) Red Cell Distribution Width 15.0 % 15.1 % (11.6-17.2) (11.6-17.2) Platelet Count 384 TH/MM3 355 TH/MM3 (150-450) (150-450) Mean Platelet Volume 7.2 FL 7.0 FL (7.0-11.0) (7.0-11.0) Neutrophils (%) (Auto) % (16.0-70.0) 87.0 % (16.0-70.0) Lymphocytes (%) (Auto) % (9.0-44.0) 4.4 % (9.0-44.0) Monocytes (%) (Auto) % (0.0-8.0) 5.7 % (0.0-8.0) Eosinophils (%) (Auto) % (0.0-4.0) 2.5 % (0.0-4.0) Basophils (%) (Auto) % (0.0-2.0) 0.4 % (0.0-2.0) Neutrophils # (Auto) TH/MM3 29.2 TH/MM3 (1.8-7.7) (1.8-7.7) Lymphocytes # (Auto) TH/MM3 1.5 TH/MM3 (1.0-4.8) (1.0-4.8) Monocytes # (Auto) TH/MM3 (0-0.9) 1.9 TH/MM3 (0-0.9) Eosinophils # (Auto) TH/MM3 (0-0.4) 0.8 TH/MM3 (0-0.4) Basophils # (Auto) TH/MM3 (0-0.2) 0.1 TH/MM3 (0-0.2) CBC Comment AUTO DIFF AUTO DIFF Differential Total Cells 100 100 Counted Neutrophils % (Manual) 81 % (16-70) 84 % (16-70) Band Neutrophils % 6 % (0-6) 3 % (0-6) Lymphocytes % 2 % (9-44) 4 % (9-44) Monocytes % 9 % (0-8) 3 % (0-8) Eosinophils % 2 % (0-4) 6 % (0-4) Neutrophils # (Manual) 32.9 TH/MM3 29.1 TH/MM3 (1.8-7.7) (1.8-7.7) Differential Comment FINAL DIFF FINAL DIFF MANUAL MANUAL Platelet Estimate HIGH (NORMAL) NORMAL (NORMAL) Platelet Morphology Comment NORMAL NORMAL (NORMAL) (NORMAL) Urine Collection Type CATH Urine Color YELLOW (YELLW/STRAW) Urine Turbidity CLEAR (CLEAR) Urine pH 6.5 (5.0-8.5) Urine Specific [place] 1.010 (1.002-1.035) Urine Protein 30 mg/dL (NEG-TRACE) Urine Glucose (UA) NEG mg/dL (NEG) Urine Ketones NEG mg/dL (NEG) Urine Occult Blood LARGE (NEG) Urine Nitrite POS (NEG) Urine Bilirubin NEG (NEG) Urine Leukocyte Esterase LARGE (NEG) Urine RBC 10-14 /hpf (0-3) Urine WBC 25-49 /hpf (0-5) Urine Amorphous Sediment MOD Urine Bacteria MOD /hpf (NONE) Microscopic Urinalysis Comment CULTURE INDICATED Dohle Bodies PRESENT (NONE SEEN) Test 07/21/16 07/21/16 01:25 08:01 Sodium Level 139 MEQ/L (136-145) Potassium Level 3.4 MEQ/L (3.5-5.1) Chloride Level 104 MEQ/L (98-107) Carbon Dioxide Level 24.1 MEQ/L (21.0-32.0) Anion Gap 11 MEQ/L (5-15) Blood Urea Nitrogen 8 MG/DL (7-18) Creatinine 0.68 MG/DL (0.60-1.30) Estimat Glomerular Filtration 124 ML/MIN Rate (>89) Random Glucose 98 MG/DL (74-106) Calcium Level 8.3 MG/DL (8.5-10.1) Magnesium Level 1.6 MG/DL (1.5-2.5) Vancomycin Level Trough 19.4 MCG/ML (5.0-10.0) White Blood Count 33.5 TH/MM3 (4.0-11.0) Red Blood Count 2.52 MIL/MM3 (4.50-5.90) Hemoglobin 7.8 GM/DL (13.0-17.0) Hematocrit 22.8 % (39.0-51.0) Mean Corpuscular Volume 90.3 FL (80.0-100.0) Mean Corpuscular Hemoglobin 30.7 PG (27.0-34.0) Mean Corpuscular Hemoglobin 34.0 % Concent (32.0-36.0) Red Cell Distribution Width 15.7 % (11.6-17.2) Platelet Count 322 TH/MM3 (150-450) Mean Platelet Volume 7.5 FL (7.0-11.0) Neutrophils (%) (Auto) 90.0 % (16.0-70.0) Lymphocytes (%) (Auto) 3.3 % (9.0-44.0) Monocytes (%) (Auto) 4.3 % (0.0-8.0) Eosinophils (%) (Auto) 2.2 % (0.0-4.0) Basophils (%) (Auto) 0.2 % (0.0-2.0) Neutrophils # (Auto) 30.2 TH/MM3 (1.8-7.7) Lymphocytes # (Auto) 1.1 TH/MM3 (1.0-4.8) Monocytes # (Auto) 1.4 TH/MM3 (0-0.9) Eosinophils # (Auto) 0.7 TH/MM3 (0-0.4) Basophils # (Auto) 0.1 TH/MM3 (0-0.2) CBC Comment AUTO DIFF Differential Total Cells 100 Counted Neutrophils % (Manual) 57 % (16-70) Band Neutrophils % 37 % (0-6) Lymphocytes % 2 % (9-44) Monocytes % 3 % (0-8) Eosinophils % 1 % (0-4) Neutrophils # (Manual) 31.5 TH/MM3 (1.8-7.7) Differential Comment FINAL DIFF MANUAL Platelet Estimate NORMAL (NORMAL) Platelet Morphology Comment NORMAL (NORMAL) Prothrombin Time 14.2 SEC (9.8-11.6) Prothromb Time International 1.3 RATIO Ratio Activated Partial 33.1 SEC Thromboplast Time (24.3-30.1) (RADHA CASILLAS) Result Diagram: 07/21/16 0801 07/21/16 0125 Microbiology Microbiology Date/Time Procedure Status Source Growth 07/19/16 15:00 Aerobic Blood Culture - Preliminary Resulted Blood Peripheral NO GROWTH IN 2 DAYS 07/19/16 15:00 Anaerobic Blood Culture - Preliminary Resulted Blood Peripheral NO GROWTH IN 2 DAYS 07/19/16 15:15 Aerobic Blood Culture - Preliminary Resulted Blood Peripheral Staph Sp Coagulase Negative 07/19/16 15:15 Anaerobic Blood Culture - Preliminary Resulted Blood Peripheral NO GROWTH IN 2 DAYS 07/19/16 15:20 Urine Culture - Preliminary Resulted Urine Catheterized Urine Gram Negative [facility] Last Impressions Renal Scan w/Medication NM 07/20/16 0000 Signed Impressions: Service Date/Time: Wednesday, July 20, 2016 15:34 - CONCLUSION: High grade obstruction on the right with partial obstruction on the left. Abdullahi Dos Santos MD Chest X-Ray 07/19/16 1457 Signed Impressions: Service Date/Time: Tuesday, July 19, 2016 15:14 - CONCLUSION: 1. The [id number]-b-[id number] in good position. 2. The lungs are clear. Salvatore Tolbert MD ([facility]) Assessment and Plan Disease Oriented Problem List: (1) Invasive carcinoma of urinary bladder Comment: Imaging shows progression of disease in spite of aggressive treatment. Mets now apparent in pelvic lymph nodes, lungs, liver, and possible abdominal carcinomatosis. . (2) Bilateral hydronephrosis (3) Sepsis Comment: Cultures negative so far. . (4) Urinary tract infection (5) Anemia due to blood loss (6) Hematuria (7) Intractable nausea and vomiting Comment: Improving with odansetron and with treatment of infection. . 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 . Symptom Scale: (1) Pain 0-10 Scale: 7 Comment: The patient's pain is primarily across his low back and across his lower abdomen. Pain reaches a #8 in intensity on most days. His current medication brings pain levels down at best to a #5. The pain is worse with movement. He describes the pain as sharp. It is nonradiating. Straining at stool also seems to exacerbate the pain. . (2) Anxiety 0-10 Scale: 3 Comment: Long history of anxiety pre-dates the cancer diagnosis but the progression of disease, ongoing need for hospitalizations, increasing dependence , etc have exacerbated the anxiety. . (3) Nausea & vomiting 0-10 Scale: 0 Comment: Improving with ondansetron and treatment of underlying infection. . Pertinent Non-Medical Issues Psychosocial: lives with his mother. Spiritual: Synagogue yessica. Legal: Patient is currently capacitated to make his own decisions. Patient completed living will and HCS. Named his mother, Laurie Kee as designated healthcare surrogate should he lose capacity. Ethical issues impacting care: No known concerns at this time. . Important Contacts * Laurie Henderson (mother and health care surrogate) -- [phone] . Prognosis Mr. Henderson has widely metastatic (pelvic lymph, lungs, liver, abdominal carcinomatosis) bladder cancer that has progressed in spite of aggressive care. His treatment course has been challenging due to recurrent hematuria and infection. Treatment options would all be palliative going forward. Dr. Lee has offered the possibility of a checkpoint inhibitor. The patient understands this might have a 20-30% chance of slowing progression and improving quality of his life. Mr. Henderson clearly understands there is no cure at this point. While he is hoping to try the new therapy and hoping he responds , he is quite clear that the does not want treatments that will just prolong an uncomfortable dying process. He is familiar with hospice which took care of his father and will want to transition to hospice care if he does not tolerate the offered treatment or disease continues to progress in spite of the new therapy. . Code Status: No Code Plan * Decision making: Patient is currently capacitated to make his own health care decisions. Should he become incapacitated, he has designated his mother Laurie Hendersonas his health care surrogate. * NO CODE per patient wishes. [place] DNR given to patient. * Goals of medical treatment: Patient desires aggressive care short of resuscitation in hopes of benefiting from the remaining therapy that Dr. Lee has recommended. He needed reassurance, however, that he could decide to transition to "comfort measures only" whenever he wished. He wants to make sure that treatments are not just prolonging the dying process and causing an unfair burden on his family. * Pain: The patient's pain is described as sharp, non-radiating primarily across his low back and across his lower abdomen, worsens with movement. Rates pain 7/10 today. Was started on 07/20/16 on low-dose methadone at 5 mg every 12 hours [id number], he has had 3 doses at the time of today's visit. I have also increased the hydromorphone dosage to 0.75 mg every 3 hours when necessary. He has had 3 doses of PRN Dilaudid in the past 24 hours. Patient will need monitored to make sure that between the pain medication and the anti- anxiety medication he does not become too sedated, no evidence of over-sedation today. He denies any adverse effects of meds today. * Anxiety: Patient reports a history of anxiety that long predates his cancer diagnosis. His pain, dependence, knowledge of disease progression in spite of aggressive care, all contribute to the exacerbation of his underlying anxiety. The anxiety, in turn, probably exacerbates his pain. He was started on lorazepam 0.5 mg every 8 hours on 07/20/16 and offer an additional 0.5-1 mg every 6 hours when necessary. He has had 2 doses of PRN Lorazepam in the past 24 hours. He reports he slept better than he had in a long time and does not feel oversedated. He DOES NOT want to continue citalopram at this time (see interval note). * Nausea/vomiting; appears to be responding to treatment of the patient's infection as well as Zofran. Patient reports he is able to tolerate small amounts of liquids and solids today. Lorazepam may also be helping n/v. No further recommendations at this time. * Methadone, ondansetron, and citalopram (stopped 07/21), all have the potential of prolonging QT interval. Given the patient's age, his most recent EKG, and the doses of these medicines provided, I think the benefits outweigh the risks. * Palliative care contact information provided. * Palliative care we'll continue to follow to assist with symptom management and to further clarify goals of medical treatment as the clinical course evolves. . (RADHA CASILLAS) Time Spent Total Floor Time (mins): 45 Face to Face Time (mins): 30 >50% Counseling/Coord of Care: Yes (RADHA CASILLAS) Attestation To help prompt me to consider important information that might be impacting today's encounter and assessment, information from prior notes written by myself or my colleagues may have been "brought forward" into today's note. My signature on this note, however, is an attestation that I personally performed the exam, history, and/or decision-making noted today, and, unless otherwise indicated, the interactions with patient, family, and staff as well as the review of records all occurred today. I also attest that the listed assessment and stated plan reflect my best clinical judgment today based on the combination of historical information, prior notes, and today's exam/ interactions. When time spent is documented, it refers only to time spent today by the signer, or if indicated, combined time spent today by collaborating physician/nurse practitioner. (RADHA CASILLAS) Collaborating MD Comments Chart reviewed. Case discussed with palliative care HAND KISS SETTER. Above HAND KISS SETTER note reviewed and I concur. . (Billy Sweet MD) RADHA CASILLAS Jul 21, 2016 14:09 Billy Sweet MD Aug 10, 2016 12:24
--- NOTE | 2016-07-21 18:08 | PD.ONC.PN ---
Subjective Subjective Remarks I slept so much. Pain better. Confused with so many doctors tending to him. Events leading to his transfer noted. Objective Data Date Time Temp Pulse Resp B/P Pulse Ox O2 Delivery O2 Flow Rate FiO2 07/21/16 16:00 99.1 114 16 112/60 96 07/21/16 12:32 96 07/21/16 12:00 100.2 114 16 120/59 96 07/21/16 08:00 97.9 107 16 122/56 95 07/21/16 04:46 97.6 105 18 135/61 97 07/21/16 02:45 98.7 109 16 120/57 96 07/21/16 00:00 98.6 112 20 137/71 97 07/20/16 20:00 99.5 116 18 131/71 97 07/20/16 20:00 97 21 07/21/16 07/21/16 07/21/16 07:00 15:00 23:00 Intake Total 1467 ml 1160 ml 1181 ml Output Total 400 ml 900 ml Balance 1067 ml 260 ml 1181 ml Result Diagram: 07/21/16 0801 07/21/16 0125 Laboratory Results Laboratory Tests Test 07/21/16 07/21/16 01:25 08:01 Sodium Level 139 MEQ/L Potassium Level 3.4 MEQ/L Chloride Level 104 MEQ/L Carbon Dioxide Level 24.1 MEQ/L Anion Gap 11 MEQ/L Blood Urea Nitrogen 8 MG/DL Creatinine 0.68 MG/DL Estimat Glomerular Filtration 124 ML/MIN Rate Random Glucose 98 MG/DL Calcium Level 8.3 MG/DL Magnesium Level 1.6 MG/DL Vancomycin Level Trough 19.4 MCG/ML White Blood Count 33.5 TH/MM3 Red Blood Count 2.52 MIL/MM3 Hemoglobin 7.8 GM/DL Hematocrit 22.8 % Mean Corpuscular Volume 90.3 FL Mean Corpuscular Hemoglobin 30.7 PG Mean Corpuscular Hemoglobin 34.0 % Concent Red Cell Distribution Width 15.7 % Platelet Count 322 TH/MM3 Mean Platelet Volume 7.5 FL Neutrophils (%) (Auto) 90.0 % Lymphocytes (%) (Auto) 3.3 % Monocytes (%) (Auto) 4.3 % Eosinophils (%) (Auto) 2.2 % Basophils (%) (Auto) 0.2 % Neutrophils # (Auto) 30.2 TH/MM3 Lymphocytes # (Auto) 1.1 TH/MM3 Monocytes # (Auto) 1.4 TH/MM3 Eosinophils # (Auto) 0.7 TH/MM3 Basophils # (Auto) 0.1 TH/MM3 CBC Comment AUTO DIFF Differential Total Cells 100 Counted Neutrophils % (Manual) 57 % Band Neutrophils % 37 % Lymphocytes % 2 % Monocytes % 3 % Eosinophils % 1 % Neutrophils # (Manual) 31.5 TH/MM3 Differential Comment FINAL DIFF MANUAL Platelet Estimate NORMAL Platelet Morphology Comment NORMAL Prothrombin Time 14.2 SEC Prothromb Time International 1.3 RATIO Ratio Activated Partial 33.1 SEC Thromboplast Time Culture Results Microbiology Date/Time Procedure Status Source Growth 07/19/16 15:00 Aerobic Blood Culture - Preliminary Resulted Blood Peripheral NO GROWTH IN 2 DAYS 07/19/16 15:00 Anaerobic Blood Culture - Preliminary Resulted Blood Peripheral NO GROWTH IN 2 DAYS 07/19/16 15:15 Aerobic Blood Culture - Preliminary Resulted Blood Peripheral Staph Sp Coagulase Negative 07/19/16 15:15 Anaerobic Blood Culture - Preliminary Resulted Blood Peripheral NO GROWTH IN 2 DAYS 07/19/16 15:20 Urine Culture - Preliminary Resulted Urine Catheterized Urine Gram Negative Ramirez Administered Medications Medications (Trade) Dose Ordered Sig/Ambika Route PRN Reason Start Time Stop Time Status Last Admin Dose Admin Sodium Chloride (NS 1000 ml Inj) 1,000 ml @ 100 mls/hr Q10H IV 07/19/16 17:44 07/21/16 17:05 IV Flush (NS Flush) 2 ml UNSCH PRN FLUSH FLUSH AFTER USING IV ACCESS 07/19/16 17:45 07/20/16 05:58 IV Flush 2 ml 2 ml BID FLUSH 07/19/16 21:00 07/21/16 08:08 Cefepime HCl/ Sodium Chloride (Maxipime Inj/NS Inj) 100 ml @ 200 mls/hr Q8H IV 07/20/16 00:00 07/21/16 15:42 Acetaminophen (Tylenol) 650 mg Q4H PRN PO fever >101 07/19/16 20:00 07/20/16 11:42 Methadone HCl (Dolophine) 5 mg Q12HR PO 07/20/16 13:00 07/21/16 08:12 Citalopram Hydrobromide (CeleXA) 20 mg DAILY PO 07/20/16 13:00 Hold 07/20/16 13:00 Lorazepam (Ativan) 0.5 mg Q8HR PO 07/20/16 14:00 07/21/16 14:37 Lorazepam (Ativan) 1 mg Q6H PRN PO anxiety/sob #6-10 07/20/16 13:00 07/21/16 01:33 Hydromorphone HCl 0.75 mg 0.75 mg Q3HR PRN IV PUSH pain >5 07/20/16 13:45 07/21/16 15:43 Vancomycin HCl/ Sodium Chloride (Vancomycin Inj/ NS 250 ml Inj) 250 ml @ 250 mls/hr Q8H IV 07/21/16 11:00 07/21/16 17:08 Objective Remarks GENERAL: Well-nourished, long haired, thinner than previous, well-developed patient. SKIN: Warm and dry. HEAD: Normocephalic. EYES: No scleral icterus. No injection or drainage. NECK: Supple, trachea midline. No JVD or lymphadenopathy. LYMPHATIC: No adenopathy. CARDIOVASCULAR: Regular rate and rhythm without murmurs. RESPIRATORY: Breath sounds equal bilaterally. No accessory muscle use. GASTROINTESTINAL: Abdomen soft, non-tender, nondistended. Urine pouch draining clear yellow urine. EXTREMITIES: No cyanosis, or edema. MUSCULOSKELETAL: Adequate muscle tone. NEUROLOGICAL: No obvious focal deficit. Awake, alert, and oriented x3. PSYCHIATRIC: Appropriate mood and affect; insight and judgment normal. 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 Course complicated by Gm neg ramirez uremia, ? gm + cocci bacteremia, significant leukocytosis, and hydronephrosis/obstruction. Reviewed recommendations of his various doctors. Discussed rationale for nephrostomy tube, this is being coordinated by his urologist. Discussed palliative care goals. Discussed purpose of his antibiotic therapy. Need for acute events to resolve before cancer directed therapy could be initiated such as check point inhibitor as out pt. Assessment 50 y/o man with muscle invasive bladder cancer, with progression to metastatic disease admitted for urosepsis/gm neg ramirez. Plan 1. Abx continue 2. WBC monitored. 3. Check point inhibitor tx as outpt. 4. Nephrostomy per urology for obstruction Idalia Lee MD Jul 21, 2016 18:08
[2016-07-22] VITALS (10 sets, daily range): BP systolic 114–141; BP diastolic 58–67; PULSE 104–127; RESP 16–20; TEMP 98.2–99.5; O2SAT 91–98
[2016-07-22] MEDS: HYDROmorphone HCL PF 1 MG/ML VIAL IV PUSH PRN ×6 (00:36→23:51)
[2016-07-22] MEDS: CEFEPIME INJ 1,000 MG in SODIUM CHLORIDE 0.9% INJ 100 ML IV SCH ×3 (00:36→21:17)
[2016-07-22] MEDS: LORazepam 1 MG TAB PO PRN (00:36)
[2016-07-22] MEDS: SODIUM CHLOR 0.9% 1000 ML INJ 1,000 ML IV SCH ×3 (04:27→23:51)
[2016-07-22] MEDS: VANCOMYCIN 1,000 MG/NS 250 ML IV SCH ×6 (04:27→18:31)
[2016-07-22] MEDS: LORazepam 0.5 MG TAB PO SCH ×3 (05:56→21:17)
[2016-07-22] MEDS ORDERED: MIDAZOLAM HCL 5 MG/5 ML VIAL ONE (09:21)
[2016-07-22] MEDS ORDERED: fentaNYL CITRATE 250 MCG/5 ML AMP ONE (09:21)
[2016-07-22] MEDS ORDERED: MIDAZOLAM HCL 2 MG/2 ML VIAL ONE ×2 (09:51→10:04)
[2016-07-22] MEDS ORDERED: HYDROmorphone HCL PF 2 MG/ML VIAL ONE (10:04)
--- NOTE | 2016-07-22 10:25 | PD.RAD ---
Post Procedure Progress Note Pre Procedure Diagnosis: (1) Sepsis (2) Bilateral hydronephrosis (3) Pelvic lymphadenopathy Post Procedure Diagnosis: (1) Sepsis (2) Bilateral hydronephrosis (3) Pelvic lymphadenopathy Procedure Date: Jul 22, 2016 Supervising Radiologist: Jesus Perez JR Proceduralist/Assist: Jaiden Marshall, RT(R), Erika Mcdowell RT(R) Anesthesia: Conscious Sedation Plan of Activity Patient to Unit: [facility]OP[facility] Patient Condition: Good See PACS Report for procedural detail/treatment Drainage Procedure Procedure 1 Imaging Guidance: Fluoroscopy, Ultrasound Side: Bilateral Procedure Type: Nephrostomy Procedure: Placement Libyan: 8 Fluid Description: Cloudy Findings: Bilateral nephrostomy tubes placed. Grossly dilated collecting systems. Turbid urine, particularly on the right side. Culture sent. Plan Drainage for several days. Can attempt internalization next week. Spoke with Dr Lee who requests ureteral stents that exit the ileal conduit. Jr. Chris,Jesus Wright MD Jul 22, 2016 10:25
[2016-07-22] MEDS ORDERED: IOHEXOL 350 MG/ML 50 ML BTL (for RAD DIAG) ONE (10:30)
[2016-07-22] MEDS ORDERED: PHARMACY ORDERED LAB XX ONE (10:45)
[2016-07-22] MEDS: METHADONE HCL 10 MG TAB PO SCH ×2 (12:55→21:18)
[2016-07-22] MEDS: DOCUSATE SODIUM 100 MG CAP PO SCH (12:55)
[2016-07-22] MEDS: SODIUM CHLORIDE 0.9% FLUSH 5 ML FLUSH FLUSH SCH ×2 (12:56→21:17)
--- NOTE | 2016-07-22 13:47 | PD.ONC.PN ---
Subjective Subjective Remarks Afebrile overnight. Patient just back from bilateral percutaneous nephrostomy tube placement. He denies any pain at present. Has multiple questions about Keytruda, follow up. Objective Data Date Time Temp Pulse Resp B/P Pulse Ox O2 Delivery O2 Flow Rate FiO2 07/22/16 12:15 115 18 121/63 96 07/22/16 11:45 113 16 117/66 97 07/22/16 11:15 118 16 133/67 98 07/22/16 10:45 119 18 114/59 95 07/22/16 10:30 99.0 122 18 141/64 91 07/22/16 08:00 Room Air 07/22/16 08:00 99.3 127 18 121/58 94 07/22/16 04:00 Room Air 07/22/16 04:00 99.3 104 20 133/64 94 07/22/16 00:00 Room Air 07/22/16 00:00 99.0 107 20 116/59 96 07/21/16 20:00 99.9 107 20 127/58 96 07/21/16 20:00 Room Air 07/21/16 16:00 99.1 114 16 112/60 96 07/22/16 07/22/16 07/22/16 07:00 15:00 23:00 Intake Total 1008 ml Output Total 300 ml 550 ml Balance 708 ml -550 ml Result Diagram: 07/21/16 0801 07/21/16 0125 Culture Results Microbiology Date/Time Procedure Status Source Growth 07/19/16 15:00 Aerobic Blood Culture - Preliminary Resulted Blood Peripheral NO GROWTH IN 3 DAYS 07/19/16 15:00 Anaerobic Blood Culture - Preliminary Resulted Blood Peripheral NO GROWTH IN 3 DAYS 07/19/16 15:15 Aerobic Blood Culture - Preliminary Resulted Blood Peripheral Staph Sp Coagulase Negative 07/19/16 15:15 Anaerobic Blood Culture - Preliminary Resulted Blood Peripheral NO GROWTH IN 3 DAYS 07/19/16 15:20 Urine Culture - Preliminary Resulted Urine Catheterized Urine Gram Negative Ramirez 07/22/16 10:02 Gram Stain Received Fluid Other Pending 07/22/16 10:02 Body Fluid Culture Received Fluid Other Pending Administered Medications Medications (Trade) Dose Ordered Sig/Ambika Route PRN Reason Start Time Stop Time Status Last Admin Dose Admin Sodium Chloride (NS 1000 ml Inj) 1,000 ml @ 100 mls/hr Q10H IV 2/28/17 17:44 07/22/16 04:27 IV Flush (NS Flush) 2 ml UNSCH PRN FLUSH FLUSH AFTER USING IV ACCESS 07/19/16 17:45 07/20/16 05:58 IV Flush (NS Flush) 2 ml BID FLUSH 07/19/16 21:00 07/22/16 12:56 Acetaminophen (Tylenol) 650 mg Q4H PRN PO fever >101 07/19/16 20:00 07/20/16 11:42 Methadone HCl (Dolophine) 5 mg Q12HR PO 07/20/16 13:00 07/22/16 12:55 Citalopram Hydrobromide (CeleXA) 20 mg DAILY PO 07/20/16 13:00 Hold 07/20/16 13:00 Lorazepam (Ativan) 0.5 mg Q8HR PO 07/20/16 14:00 07/22/16 05:56 Lorazepam (Ativan) 1 mg Q6H PRN PO anxiety/sob #6-10 07/20/16 13:00 07/22/16 00:36 Hydromorphone HCl 0.75 mg 0.75 mg Q3HR PRN IV PUSH pain >5 07/20/16 13:45 07/22/16 12:56 Vancomycin HCl/ Sodium Chloride (Vancomycin Inj/ NS 250 ml Inj) 250 ml @ 250 mls/hr Q8H IV 07/21/16 11:00 07/22/16 04:27 Docusate Sodium 100 mg 100 mg DAILY PO 07/22/16 09:00 07/22/16 12:55 Cefepime HCl/ Sodium Chloride (Maxipime Inj/NS Inj) 100 ml @ 200 mls/hr Q8H IV 07/22/16 13:00 07/22/16 13:33 Objective Remarks GENERAL: Middle aged male, sitting up in bed in NAD SKIN: Warm and dry. HEAD: Normocephalic. EYES: No injection or drainage. NECK: Supple, trachea midline. CARDIOVASCULAR: Regular rate and rhythm RESPIRATORY: Breath sounds equal bilaterally. No accessory muscle use. GASTROINTESTINAL: Abdomen soft, non-tender, nondistended. urostomy bag in place , bilateral nephrostomy bags in place, filled with clear yellow urine. EXTREMITIES: No cyanosis NEUROLOGICAL: awake and alert, normal speech. moving all extremities. 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 discussed need for current infection to resolve before further treatment could be considered. Post palliative surgery for hematuria, pt suspected to have metastatic disease and recurrence. Course complicated by Gm neg ramirez uremia, ? gm + cocci bacteremia, significant leukocytosis, and hydronephrosis/obstruction. Reviewed recommendations of his various doctors. Discussed rationale for nephrostomy tube, this is being coordinated by his urologist. Discussed palliative care goals. Discussed purpose of his antibiotic therapy. Need for acute events to resolve before cancer directed therapy could be initiated such as check point inhibitor as out pt. Assessment 50 y/o man with muscle invasive bladder cancer, with progression to metastatic disease admitted for urosepsis/gm neg ramirez. Plan 1. continue antibiotics 2. supportive care 3. follow up in clinic once discharged Attending Statement The exam, history, and the medical decision-making described in the above note were completed with the assistance of the mid-level provider. I reviewed and agree with the findings presented. I attest that I had a [id number] encounter with the patient on the same day, and personally performed and documented my assessment and findings in the medical record. Pt seen and examined. Still having fever. Back pain better. Nephrostomy tubes in place draining non bloody clear urine. Discussed treatment plant with check point inhibitor specific for bladder cancer [id number]. Pt information given for review. Jesika Wilkes Jul 22, 2016 13:47 Idalia Lee MD Jul 22, 2016 17:54
--- NOTE | 2016-07-22 13:57 | RADRPT ---
EXAM DATE/TIME: 07/22/2016 09:43 [facility] COMPARISON: No previous studies available for comparison. INDICATIONS : Patient with history of urothelial carcinoma of the bladder cancer in need of bilateral nephrostomy t ube placement. Patient has bilateral hydronephrosis. Ileal conduit. MEDICAL HISTORY : Metastatic invasive carcinoma of the bladder, Anemia, HTN, Neurogenic bladder, Spinal tumor status po st resection SURGICAL HISTORY : Spinal tumor resection, Transuretheral bladder irrigation and cystoscopy, [id number] placement, Rad ical cystoprostatectomy with bilateral pelvis lymph node dissection and creation of ileal conduit ENCOUNTER: Initial ACUITY: 1 month PAIN SCORE: 8/10 LOCATION: Abdominal/Ostomy site FLUORO TIME: 4.1 minutes IMAGE SERIES: 2 SEDATION TIME: 30 minutes CONTRAST: 20 cc Omnipaque (iohexol) 350 MEDICATION(S): 1.) 9 mg midazolam (Versed) IV 2.) 2 mg hydromorphone (Dilaudid) IV 3.) 350 mcg fentanyl (Sublimaze) IV DEVICE(S): 1.) 8 Spanish X25cm nephrostomy catheter PROCEDURE : 1. Ultrasound-guided puncture of the right kidney. 2. Antegrade percutaneous pyelogram of the right kidney. 3. Percutaneous right nephrostomy placement. 4. Conscious sedation with continuous EKG and oximetry monitoring. The risks, benefits and alternatives to the procedure were explained and verbal and written consent w as obtained. The site was prepped in sterile fashion. Full sterile technique was used, including ca p, mask, sterile gloves and gown and a large sterile sheet. Hand hygiene and 2% chlorhexidine and/or betadine/alcohol prep was utilized per protocol for cutaneous antisepsis. The skin and subcutaneous tissues were infiltrated with local anesthetic solution. With ultrasound and fluoroscopic guidance the selected kidney was punctured and a percutaneous antegr maria luisa pyelogram was performed demonstrating a dilated collecting system. Serial dilatation was perform ed and a prescribed nephrostomy tube was placed within the renal pelvis and sutured in place. The urine draining from the right kidney was turbid and therefore sent for microbiological evaluation . Conscious sedation was performed with the prescribed dosages and duration as above in the presence of an independent trained radiology nurse to assist in the monitoring of the patient. EKG and oximetry remained stable throughout the procedure. The patient tolerated the procedure well and there were n o complications. The patient was sent to post anesthesia recovery in stable condition. CONCLUSION: Uncomplicated right nephrostomy tube placement as above. The collecting system is grossly dilated. Th e urine was turbid and therefore sent for microbiological evaluation. Several days of decompression c an be performed and then attempts at placement of ureteral stent with extension through the ileal con duit stoma. I spoke with Dr. Lee concerning this. Jesus Perez Jr., MD on July 22, 2016 at 13:53 Board Certified Radiologist. This report was verified electronically.
--- NOTE | 2016-07-22 13:58 | RADRPT ---
EXAM DATE/TIME: 07/22/2016 09:43 [facility] COMPARISON: No previous studies available for comparison. INDICATIONS : Patient with history of urothelial carcinoma of the bladder cancer in need of bilateral nephrostomy t ube placement. Patient has ileal conduit. Bilateral hydronephrosis. MEDICAL HISTORY : Metastatic invasive carcinoma of the bladder, Anemia, HTN, Neurogenic bladder, Spinal tumor status po st resection SURGICAL HISTORY : Spinal tumor resection, Transuretheral bladder irrigation and cystoscopy, [id number] placement, Rad ical cystoprostatectomy with bilateral pelvis lymph node dissection and creation of ileal conduit ENCOUNTER: Initial ACUITY: 1 month PAIN SCORE: 8/10 LOCATION: Abdominal/Ostomy site FLUORO TIME: 4.1 minutes IMAGE SERIES: 2 SEDATION TIME: 30 minutes CONTRAST: 20 cc Omnipaque (iohexol) 350 MEDICATION(S): 1.) 9 mg midazolam (Versed) IV 2.) 2 mg hydromorphone (Dilaudid) IV 3.) 350 mcg fentanyl (Sublimaze) IV DEVICE(S): 1.) 8 [place]araguan X25cm nephrostomy catheter PROCEDURE : 1. Ultrasound-guided puncture of the left kidney. 2. Antegrade percutaneous pyelogram of the left kidney. 3. Percutaneous left nephrostomy placement. 4. Conscious sedation with continuous EKG and oximetry monitoring. The risks, benefits and alternatives to the procedure were explained and verbal and written consent w as obtained. The site was prepped in sterile fashion. Full sterile technique was used, including ca p, mask, sterile gloves and gown and a large sterile sheet. Hand hygiene and 2% chlorhexidine and/or betadine/alcohol prep was utilized per protocol for cutaneous antisepsis. The skin and subcutaneous tissues were infiltrated with local anesthetic solution. With ultrasound and fluoroscopic guidance the selected kidney was punctured and a percutaneous antegr maria luisa pyelogram was performed demonstrating a dilated collecting system. Serial dilatation was perform ed and a prescribed nephrostomy tube was placed within the renal pelvis and sutured in place. Conscious sedation was performed with the prescribed dosages and duration as above in the presence of an independent trained radiology nurse to assist in the monitoring of the patient. EKG and oximetry remained stable throughout the procedure. The patient tolerated the procedure well and there were n o complications. The patient was sent to post anesthesia recovery in stable condition. CONCLUSION: Uncomplicated nephrostomy tube placement as above. Several days of decompression will be performed an d the patient will return for attempted ureteral stent placement with extension through the ileal con duit stoma. I spoke with Dr. Lee concerning this. Jesus Perez Jr., MD on July 22, 2016 at 13:55 Board Certified Radiologist. This report was verified electronically.
--- NOTE | 2016-07-22 14:08 | HHI.PR ---
Subjective Remarks Overall pain control. Tolerating diet and less anxious. Objective Vitals Vital Signs Date Time Temp Pulse Resp B/P Pulse Ox O2 Delivery O2 Flow Rate FiO2 07/22/16 12:15 115 18 121/63 96 07/22/16 11:45 113 16 117/66 97 07/22/16 11:15 118 16 133/67 98 07/22/16 10:45 119 18 114/59 95 07/22/16 10:30 99.0 122 18 141/64 91 07/22/16 08:00 Room Air 07/22/16 08:00 99.3 127 18 121/58 94 07/22/16 04:00 Room Air 07/22/16 04:00 99.3 104 20 133/64 94 07/22/16 00:00 Room Air 07/22/16 00:00 99.0 107 20 116/59 96 07/21/16 20:00 99.9 107 20 127/58 96 07/21/16 20:00 Room Air 07/21/16 16:00 99.1 114 16 112/60 96 I/O 07/21/16 07/21/16 07/21/16 07/22/16 07/22/16 07/22/16 07:00 15:00 23:00 07:00 15:00 23:00 Intake Total 1467 ml 1160 ml 2284 ml 1008 ml Output Total 400 ml 900 ml 300 ml 550 ml Balance 1067 ml 260 ml 2284 ml 708 ml -550 ml Intake Oral 480 ml 1160 ml IV Total 987 ml 2284 ml 1008 ml Output Urine Total 400 ml 900 ml 300 ml Drainage Total 550 ml # Bowel Movements 0 0 Result Diagram: 07/21/16 0801 07/21/16 0125 Other Results Microbiology Date/Time Procedure Status Source Growth 07/22/16 10:02 Gram Stain Received Fluid Other Pending 07/22/16 10:02 Body Fluid Culture Received Fluid Other Pending 07/19/16 15:20 Urine Culture - Preliminary Resulted Urine Catheterized Urine Gram Negative Ramirez 07/19/16 15:15 Aerobic Blood Culture - Preliminary Resulted Blood Peripheral Staph Sp Coagulase Negative 07/19/16 15:15 Anaerobic Blood Culture - Preliminary Resulted Blood Peripheral NO GROWTH IN 3 DAYS Item Value Date Time Magnesium Level 1.6 MG/DL 07/21/16 0125 Objective Remarks GENERAL: This is a well-nourished, well-developed patient, in no apparent distress. CARDIOVASCULAR: Regular rate and rhythm RESPIRATORY: Clear to auscultation. Breath sounds equal bilaterally. No wheezes , rales, or rhonchi. GASTROINTESTINAL: Abdomen soft, nondistended. Mild bilateral flank pain tenderness, bilateral tubes in place MUSCULOSKELETAL: Extremities without clubbing, cyanosis, or edema. NEURO: Alert & Oriented x4 to person, place, time, situation. Moves all ext x4 Procedures 3/3 bilateral nephrostomy tube placement A/P Problem List: (1) Sepsis ICD Code: A41.9 Status: Acute (2) Leucocytosis ICD Code: D72.829 Status: Acute (3) Bilateral hydronephrosis ICD Code: N13.30 Status: Chronic (4) Urinary tract infection ICD Code: N39.0 Status: Acute (5) Invasive carcinoma of urinary bladder ICD Code: C67.9 Status: Chronic Assessment and Plan Severe Sepsisclinically improving with source being a complex urinary tract infection. Patient meets criteria on presentation with leukocytosis, sinus tachycardia, lactic acidosis elevation greater than 2, urinary tract infection. Continue antibiotics vancomycin, cefepime, awaiting final blood cultures and urine cultures. Prelim showed gram-negative rods. Complicated urinary tract infection Patient with history of invasive bladder cancer, ileal conduit, recent CT scan does indicate hydronephrosis, hydroureters. Continue above antibiotics and follow-up blood cultures. Recent Gram stain and cultures also done from nephrostomy tubes sent for cultures today Leukocytosis Secondary to infection Continue monitor, continue to elevate however slowly trending down. Invasive bladder cancer with hydronephrosis, hydroureters Admitting physician discussed with Dr. Lee, patient's urologist. He recommended the patient undergo renal scan with Lasix washout to evaluate if patient has chronic hydronephrosis, hydroureter secondary to the ileal conduit with findings of high-grade on the right and partial in the left. Urology recommended bilateral nephrostomy tube placement which was done by interventional radiology today. IR will internalize stents next week. [facility] Pinion Adjuster/oncologist has evaluated the patient and recommending palliative chemotherapy versus checkpoint inhibitor. Palliative care physician has evaluated patient for better pain control and management on methadone -he states that this pain regimen is adequate; he prefers not to be on Celexa which I have discontinued. Renal scan with Lasix was performed which does show high-grade obstruction on the right and partial obstruction on the left, status post bilateral nephrostomy tube today. Intervention radiology will attempt to internalize the stent next week prior to discharge DVT prophylaxis Sequential compression devices, anticoagulation on hold due to pending procedure. DO NOT RESUSCITATE CODE STATUS. Discharge Planning Home when stable. Problem Qualifiers (1) Sepsis: Qualified Code: A41.9 - Sepsis, due to unspecified organism (2) Leucocytosis: Qualified Code: D72.829 - Leukocytosis, unspecified type Nubia Grewal MD Jul 22, 2016 14:08
--- NOTE | 2016-07-22 14:31 | HHI.PR ---
Subjective Remarks Pt s/p b/l PCNT's placed today. Urine sent for culture per IR. Back pain has improved. Objective Vital Signs Vital Signs Date Time Temp Pulse Resp B/P Pulse Ox O2 Delivery O2 Flow Rate FiO2 07/22/16 12:15 115 18 121/63 96 07/22/16 11:45 113 16 117/66 97 07/22/16 11:15 118 16 133/67 98 07/22/16 10:45 119 18 114/59 95 07/22/16 10:30 99.0 122 18 141/64 91 07/22/16 08:00 Room Air 07/22/16 08:00 99.3 127 18 121/58 94 07/22/16 04:00 Room Air 07/22/16 04:00 99.3 104 20 133/64 94 07/22/16 00:00 Room Air 07/22/16 00:00 99.0 107 20 116/59 96 07/21/16 20:00 99.9 107 20 127/58 96 07/21/16 20:00 Room Air 07/21/16 16:00 99.1 114 16 112/60 96 I/O 07/21/16 07/21/16 07/21/16 07/22/16 07/22/16 07/22/16 07:00 15:00 23:00 07:00 15:00 23:00 Intake Total 1467 ml 1160 ml 2284 ml 1008 ml Output Total 400 ml 900 ml 300 ml 550 ml Balance 1067 ml 260 ml 2284 ml 708 ml -550 ml Intake Oral 480 ml 1160 ml IV Total 987 ml 2284 ml 1008 ml Output Urine Total 400 ml 900 ml 300 ml Drainage Total 550 ml # Bowel Movements 0 0 Result Diagram: 07/21/16 0801 07/21/16 0125 Imaging Last 48 hours Impressions Renal Scan w/Medication NM 07/20/16 0000 Signed Impressions: Service Date/Time: Wednesday, July 20, 2016 15:34 - CONCLUSION: High grade obstruction on the right with partial obstruction on the left. Abdullahi Dos Santos MD Chest X-Ray 07/19/16 1457 Signed Impressions: Service Date/Time: Tuesday, July 19, 2016 15:14 - CONCLUSION: 1. The [id number] in good position. 2. The lungs are clear. Salvatore Tolbert MD Objective Remarks Abd:soft,nt,nd B/L PCNT's in place and draining well. Assessment and Plan Problem List: (1) Urinary tract infection ICD Code: N39.0 Status: Acute (2) Bilateral hydronephrosis ICD Code: N13.30 Status: Chronic (3) Invasive carcinoma of urinary bladder ICD Code: C67.9 Status: Chronic Assessment and Plan -Plan for Bilateral nephrostomy tubes today -Will discuss with and defer further care as patient is known to him -Please call with questions 07/22/16 50 y.o male with metastatic bladder cancer with b/l ureteral obstruction s/p b/ l placement of PCNT's Check cultures Continue ABX Will need internalization with b/l JJ stents by IR next week. Eulogio Lee DO Jul 22, 2016 14:31
--- NOTE | 2016-07-22 16:01 | HHI.HCPN ---
Reason for visit a. To assist with evaluation and management of symptoms including: pain; anxiety. b. To assist medical decision maker(s) with: better understanding of current medical conditions; weighing benefits/burdens of medical treatment options; making medical treatment decisions. . Subjective/Interval History Patient seen and examined in room. He is awake and alert. He recently returned from bilateral nephrostomy tubes placement. His mother is at bedside. He denies nausea today. He reports the Lorazepam is helping with anxiety. He has had 1 doses of PRN Lorazepam in the past 24 hours in addition to scheduled Lorazepam. He reports pain in his back rates 6/10 during my visit. He reports pain increases with movement slight increase with nephrostomy tubes in place, trying to get used to more tubes. Patient was started on Methadone 5mg PO every 12 hours ATC, no adverse effects reported. Reviewed we should see full effect of Methadone in the coming days, agreed to reevaluate pain on Monday. Patient has had 5 doses of Dilaudid 0.75 mg IV in the past 24 hours. Tmax 99.9. Tachycardic. Blood pressure stable. No new labs today. Urine culture preliminarily positive gram-negative rods, awaiting final results. Blood culture staff coagulase negative in aerobic bottle. On Cefepime and Vancomycin. . Family/friend interactions Mother at bedside. She agrees with plan of care. . Advance Directives Living Will: Copy in medical record Health Care Surrogate: Copy in medical record Durable Power of Secretary To Board Of Commissioners: Never completed Advance Directive Specifics Date completed: The patient completed a living will with my assistance on 07/20/16. . Health Care Surrogate(s): The patient has designated his Payal Suazo his health care surrogate. . Documented care wishes: The patient is completed a standard [place] living will indicating that he would not want life prolonging measures should he be found to have an end-stage condition; terminal condition; or persistent vegetative state. . Significant change in goals: NO CODE. Continue aggressive care and pain management. . Objective Vital Signs Date Time Temp Pulse Resp B/P Pulse Ox O2 Delivery O2 Flow Rate FiO2 07/22/16 12:15 115 18 121/63 96 07/22/16 11:45 113 16 117/66 97 07/22/16 11:15 118 16 133/67 98 07/22/16 10:45 119 18 114/59 95 07/22/16 10:30 99.0 122 18 141/64 91 07/22/16 08:00 Room Air 07/22/16 08:00 99.3 127 18 121/58 94 07/22/16 04:00 Room Air 07/22/16 04:00 99.3 104 20 133/64 94 07/22/16 00:00 Room Air 07/22/16 00:00 99.0 107 20 116/59 96 07/21/16 20:00 99.9 107 20 127/58 96 07/21/16 20:00 Room Air 07/21/16 16:00 99.1 114 16 112/60 96 Intake & Output 07/22/16 07/22/16 07:00 19:00 Intake Total 2111 ml 597 ml Output Total 300 ml 1350 ml Balance 1811 ml -753 ml Intake Oral 240 ml IV Total 2111 ml 357 ml Output Urine Total 300 ml 800 ml Drainage Total 550 ml # Bowel Movements 0 Physical Exam CONSTITUTIONAL/GENERAL: This is a thin male who grimaces with movement. Awake, alert, conversant. TUBES/LINES/DRAINS: [id number] right chest; ileoconduit, SCD's. SKIN: No jaundice, or lesions. Eczematous type rash on forehead. Healed abdominal surgical scars. Skin temperature appropriate. Not diaphoretic. CARDIOVASCULAR: tachycardic. RESPIRATORY/CHEST: Symmetric, unlabored respirations. Clear to auscultation. Breath sounds equal bilaterally. Right sided [id number]. GASTROINTESTINAL: Diffuse mild-moderate tenderness across the lower abdomen. Abdomen soft, nondistended. No hepato-splenomegaly, or palpable masses. No guarding. Bowel sounds present. Ileoconduit present and functioning. GENITOURINARY: Ileoconduit functioning. Bilateral nephrostomy tubes in place, draining. MUSCULOSKELETAL: Extremities without clubbing, cyanosis, or edema. No mottling. NEUROLOGICAL: Awake and alert. Motor and sensory grossly within normal limits. Follows commands. Cognitively sharp. Moves all extremities. PSYCHIATRIC: Appears relaxed. No obvious depression. . . Diagnostic Tests Laboratory Laboratory Tests Test 07/19/16 07/20/16 07/21/16 07/21/16 17:25 06:19 01:25 08:01 Lactic Acid Level 1.0 mmol/L (0.4-2.0) White Blood Count 33.5 TH/MM3 33.5 TH/MM3 (4.0-11.0) (4.0-11.0) Red Blood Count 2.80 MIL/MM3 2.52 MIL/MM3 (4.50-5.90) (4.50-5.90) Hemoglobin 8.5 GM/DL 7.8 GM/DL (13.0-17.0) (13.0-17.0) Hematocrit 25.2 % 22.8 % (39.0-51.0) (39.0-51.0) Mean Corpuscular Volume 90.0 FL 90.3 FL (80.0-100.0) (80.0-100.0) Mean Corpuscular Hemoglobin 30.5 PG 30.7 PG (27.0-34.0) (27.0-34.0) Mean Corpuscular Hemoglobin 33.8 % 34.0 % Concent (32.0-36.0) (32.0-36.0) Red Cell Distribution Width 15.1 % 15.7 % (11.6-17.2) (11.6-17.2) Platelet Count 355 TH/MM3 322 TH/MM3 (150-450) (150-450) Mean Platelet Volume 7.0 FL 7.5 FL (7.0-11.0) (7.0-11.0) Neutrophils (%) (Auto) 87.0 % 90.0 % (16.0-70.0) (16.0-70.0) Lymphocytes (%) (Auto) 4.4 % 3.3 % (9.0-44.0) (9.0-44.0) Monocytes (%) (Auto) 5.7 % (0.0-8.0) 4.3 % (0.0-8.0) Eosinophils (%) (Auto) 2.5 % (0.0-4.0) 2.2 % (0.0-4.0) Basophils (%) (Auto) 0.4 % (0.0-2.0) 0.2 % (0.0-2.0) Neutrophils # (Auto) 29.2 TH/MM3 30.2 TH/MM3 (1.8-7.7) (1.8-7.7) Lymphocytes # (Auto) 1.5 TH/MM3 1.1 TH/MM3 (1.0-4.8) (1.0-4.8) Monocytes # (Auto) 1.9 TH/MM3 1.4 TH/MM3 (0-0.9) (0-0.9) Eosinophils # (Auto) 0.8 TH/MM3 0.7 TH/MM3 (0-0.4) (0-0.4) Basophils # (Auto) 0.1 TH/MM3 0.1 TH/MM3 (0-0.2) (0-0.2) CBC Comment AUTO DIFF AUTO DIFF Differential Total Cells 100 100 Counted Neutrophils % (Manual) 84 % (16-70) 57 % (16-70) Band Neutrophils % 3 % (0-6) 37 % (0-6) Lymphocytes % 4 % (9-44) 2 % (9-44) Monocytes % 3 % (0-8) 3 % (0-8) Eosinophils % 6 % (0-4) 1 % (0-4) Neutrophils # (Manual) 29.1 TH/MM3 31.5 TH/MM3 (1.8-7.7) (1.8-7.7) Differential Comment FINAL DIFF FINAL DIFF MANUAL MANUAL Dohle Bodies PRESENT (NONE SEEN) Platelet Estimate NORMAL NORMAL (NORMAL) (NORMAL) Platelet Morphology Comment NORMAL NORMAL (NORMAL) (NORMAL) Sodium Level 139 MEQ/L 139 MEQ/L (136-145) (136-145) Potassium Level 3.8 MEQ/L 3.4 MEQ/L (3.5-5.1) (3.5-5.1) Chloride Level 107 MEQ/L 104 MEQ/L (98-107) (98-107) Carbon Dioxide Level 20.6 MEQ/L 24.1 MEQ/L (21.0-32.0) (21.0-32.0) Anion Gap 11 MEQ/L (5-15) 11 MEQ/L (5-15) Blood Urea Nitrogen 11 MG/DL (7-18) 8 MG/DL (7-18) Creatinine 0.69 MG/DL 0.68 MG/DL (0.60-1.30) (0.60-1.30) Estimat Glomerular Filtration 122 ML/MIN 124 ML/MIN Rate (>89) (>89) Random Glucose 102 MG/DL 98 MG/DL (74-106) (74-106) Calcium Level 8.6 MG/DL 8.3 MG/DL (8.5-10.1) (8.5-10.1) Magnesium Level 1.6 MG/DL (1.5-2.5) Vancomycin Level Trough 19.4 MCG/ML (5.0-10.0) Prothrombin Time 14.2 SEC (9.8-11.6) Prothromb Time International 1.3 RATIO Ratio Activated Partial 33.1 SEC Thromboplast Time (24.3-30.1) Test 07/22/16 13:40 Vancomycin Level Trough 13.7 MCG/ML (5.0-10.0) Result Diagram: 07/21/16 0801 07/21/16 0125 Microbiology Microbiology Date/Time Procedure Status Source Growth 07/22/16 10:02 Gram Stain Received Fluid Other Pending 07/22/16 10:02 Body Fluid Culture Received Fluid Other Pending . Imaging Last Impressions Nephrostomy 07/22/16 0000 Signed Impressions: Service Date/Time: Friday, July 22, 2016 09:43 - CONCLUSION: Uncomplicated right nephrostomy tube placement as above. The collecting system is grossly dilated. The urine was turbid and therefore sent for microbiological evaluation. Several days of decompression can be performed and then attempts at placement of ureteral stent with extension through the ileal conduit stoma. I spoke with Dr. Lee concerning this. Jesus Perez Jr., MD Renal Scan w/Medication NM 07/20/16 0000 Signed Impressions: Service Date/Time: Wednesday, July 20, 2016 15:34 - CONCLUSION: High grade obstruction on the right with partial obstruction on the left. Abdullahi Dos Santos MD Chest X-Ray 07/19/16 1167 Signed Impressions: Service Date/Time: Tuesday, July 19, 2016 15:14 - CONCLUSION: 1. The [id number]-[id number] in good position. 2. The lungs are clear. Salvatore Tolbert MD . Assessment and Plan Disease Oriented Problem List: (1) Invasive carcinoma of urinary bladder Comment: Imaging shows progression of disease in spite of aggressive treatment. Mets now apparent in pelvic lymph nodes, lungs, liver, and possible abdominal carcinomatosis. . (2) Bilateral hydronephrosis (3) Sepsis Comment: Cultures negative so far. . (4) Urinary tract infection (5) Anemia due to blood loss (6) Hematuria (7) Intractable nausea and vomiting Comment: Improving with odansetron and with treatment of infection. . 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 . Symptom Scale: (1) Pain 0-10 Scale: 6 Comment: The patient's pain is primarily across his low back and across his lower abdomen. Pain reaches a #8 in intensity on most days. His current medication brings pain levels down at best to a #5. The pain is worse with movement. He describes the pain as sharp. It is nonradiating. Straining at stool also seems to exacerbate the pain. . (2) Anxiety 0-10 Scale: 0 Comment: Long history of anxiety pre-dates the cancer diagnosis but the progression of disease, ongoing need for hospitalizations, increasing dependence , etc have exacerbated the anxiety. . (3) Nausea & vomiting 0-10 Scale: 0 Comment: Improving with ondansetron and treatment of underlying infection. . Pertinent Non-Medical Issues Psychosocial: lives with his mother. Spiritual: [employer] yessica. Legal: Patient is currently capacitated to make his own decisions. Patient completed living will and HCS. Named his mother, Laurie Kee as designated healthcare surrogate should he lose capacity. Ethical issues impacting care: No known concerns at this time. . Important Contacts * Laurie Henderson (mother and health care surrogate) -- [phone] . Prognosis Mr. Henderson has widely metastatic (pelvic lymph, lungs, liver, abdominal carcinomatosis) bladder cancer that has progressed in spite of aggressive care. His treatment course has been challenging due to recurrent hematuria and infection. Treatment options would all be palliative going forward. Dr. Lee has offered the possibility of a checkpoint inhibitor. The patient understands this might have a 20-30% chance of slowing progression and improving quality of his life. Mr. Henderson clearly understands there is no cure at this point. While he is hoping to try the new therapy and hoping he responds , he is quite clear that the does not want treatments that will just prolong an uncomfortable dying process. He is familiar with hospice which took care of his father and will want to transition to hospice care if he does not tolerate the offered treatment or disease continues to progress in spite of the new therapy. . Code Status: No Code Plan * Decision making: Patient is currently capacitated to make his own health care decisions. Should he become incapacitated, he has designated his mother Laurie Suazo his health care surrogate. * NO CODE per patient wishes. [place] DNR given to patient. * Goals of medical treatment: Patient desires aggressive care short of resuscitation in hopes of benefiting from the remaining therapy that Dr. Lee has recommended. * Pain: started on 07/20/16 on low-dose methadone at 5 mg every 12 hours around- the-clock and hydromorphone dosage to 0.75 mg every 3 hours when necessary. He has had 5 doses of PRN Dilaudid in the past 24 hours, though had nephrostomy tubes placed today. Will monitor PRN need over the weekend. No dose changes today as pain may be increased due to recent procedure. Will reevaluate pain on Monday07/25/16. * Anxiety: Improving with addition of Lorazepam 0.5 mg every 8 hours ATC. He has had 1 dose of PRN Lorazepam today. He DOES NOT want to continue citalopram, discontinued. * Nausea/vomiting; Improved. * Methadone, ondansetron, and citalopram (stopped 07/21), all have the potential of prolonging QT interval. Given the patient's age, his most recent EKG, and the doses of these medicines provided, I think the benefits outweigh the risks. * Palliative care we'll continue to follow to assist with symptom management and to further clarify goals of medical treatment as the clinical course evolves. . Attestation To help prompt me to consider important information that might be impacting today's encounter and assessment, information from prior notes written by myself or my colleagues may have been "brought forward" into today's note. My signature on this note, however, is an attestation that I personally performed the exam, history, and/or decision-making noted today, and, unless otherwise indicated, the interactions with patient, family, and staff as well as the review of records all occurred today. I also attest that the listed assessment and stated plan reflect my best clinical judgment today based on the combination of historical information, prior notes, and today's exam/ interactions. When time spent is documented, it refers only to time spent today by the signer, or if indicated, combined time spent today by collaborating physician/nurse practitioner. RADHA CASILLAS Jul 22, 2016 16:01
[2016-07-23 00:05] VITALS: BP 132/57; PULSE 116; RESP 18; TEMP 100.3; O2SAT 97
[2016-07-23] MEDS: HYDROmorphone HCL PF 1 MG/ML VIAL IV PUSH PRN ×6 (03:38→21:16)
[2016-07-23] MEDS: VANCOMYCIN 1,000 MG/NS 250 ML IV SCH ×6 (03:39→18:19)
[2016-07-23 04:19] VITALS: BP 126/60; PULSE 97; RESP 20; TEMP 98.8; O2SAT 98
[2016-07-23] MEDS: LORazepam 0.5 MG TAB PO SCH ×3 (06:03→21:15)
[2016-07-23] MEDS: CEFEPIME INJ 1,000 MG in SODIUM CHLORIDE 0.9% INJ 100 ML IV SCH ×2 (06:03→11:47)
[2016-07-23 08:00] VITALS: BP 128/56; PULSE 115; RESP 20; TEMP 99.8; O2SAT 96
[2016-07-23] MEDS: SODIUM CHLORIDE 0.9% FLUSH 5 ML FLUSH FLUSH SCH ×2 (08:03→21:00)
[2016-07-23] MEDS: METHADONE HCL 10 MG TAB PO SCH ×2 (08:19→21:15)
[2016-07-23] MEDS: DOCUSATE SODIUM 100 MG CAP PO SCH (08:19)
[2016-07-23] MEDS ORDERED: SODIUM CHLOR 0.9% 1000 ML INJ 1,000 ML IV ONE (10:15)
[2016-07-23 11:14] LABS: BACTERIA, URINE RARE /hpf; BLOOD, URINE LARGE (NEG); GLUCOSE,URINE NEG (NEG); KETONE, URINE NEG (NEG); MUCUS URINE FEW /lpf (OCC); NITRITE,URINE NEG (NEG); PH, URINE 5.5 (5.0-8.5); SQUAMOUS EPITHELIAL CELL URINE <1 /hpf (0-5); TRANSITIONAL EPI CELLS, URINE <1 /hpf; URIC ACID CRYSTALS, URINE RARE /hpf; URINE COLOR YELLOW (YELLW/STRAW)
[2016-07-23 11:14] LABS: AUTOMATED NEUTROPHIL # 30.8 TH/MM3 (1.8-7.7); BASOPHIL # 0.1 TH/MM3 (0-0.2); BASOPHIL % 0.2 % (0.0-2.0); EOSINOPHIL # 0.8 TH/MM3 (0-0.4); EOSINOPHIL % 2.3 % (0.0-4.0); HEMATOCRIT 22.1 % (39.0-51.0); LYMPH % 2.5 % (9.0-44.0); LYMPHOCYTE # 0.9 TH/MM3 (1.0-4.8); MEAN CELL VOLUME 91.6 FL (80.0-100.0); MEAN CORPUSCULAR HGB CONC 33.8 % (32.0-36.0); PLATELET COUNT 317 TH/MM3 (150-450); RED BLOOD COUNT 2.41 MIL/MM3 (4.50-5.90); RED CELL DISTRIBUTION WIDTH 15.7 % (11.6-17.2); WHITE BLOOD COUNT 34.3 TH/MM3 (4.0-11.0)
[2016-07-23 11:15] LABS: HEMO FLAGS AUTO DIFF
[2016-07-23 11:16] LABS: COMMENT (UR) CULTURE INDICATED; CULTURE IF INDICATED CULTURE INDICATED
[2016-07-23] MEDS: SODIUM CHLOR 0.9% 1000 ML INJ 1,000 ML IV SCH (11:31)
[2016-07-23 11:42] LABS: ALKALINE PHOSPHATASE 157 U/L (45-117); ALT (GPT) 31 U/L (12-78); ANION GAP 9 MEQ/L (5-15); AST (GOT) 25 U/L (15-37); BICARBONATE 26.1 MEQ/L (21.0-32.0); BLOOD UREA NITROGEN 6 MG/DL (7-18); CHLORIDE 102 MEQ/L (98-107); GLOMERULAR FILTRATION RATE 116 ML/MIN (>89); POTASSIUM 3.9 MEQ/L (3.5-5.1); SODIUM (NA) 137 MEQ/L (136-145); TOTAL BILIRUBIN ADULT 0.6 MG/DL (0.2-1.0)
[2016-07-23] MEDS: ONDANSETRON HCL 4 MG/2 ML VIAL IV PUSH PRN (11:46)
[2016-07-23 11:53] LABS: BANDS 6 % (0-6); EOSINOPHILS 2 % (0-4); NEUTROPHIL # MANUAL DIFF 32.6 TH/MM3 (1.8-7.7); POLYS (SEG NEUTROPHILS) 89 % (16-70); WBC DIFF SAMPLE 100
[2016-07-23 11:54] LABS: DOHLE BODIES PRESENT (NONE SEEN); PLATELET ESTIMATE SMEAR NORMAL (NORMAL); PLATELET MORPHOLOGY NORMAL (NORMAL); SCAN/DIFF FINAL DIFF MANUAL
[2016-07-23 12:00] VITALS: BP 125/64; PULSE 116; RESP 18; TEMP 103; O2SAT 96
[2016-07-23] MEDS: ACETAMINOPHEN 325 MG TAB PO PRN (12:13)
[2016-07-23 13:08] LABS: LACTIC ACID GHOST NOT REPORTABLE
[2016-07-23] MEDS: PIPERACIL-TAZO 3.375 GM PREMIX 50 ML IV SCH ×2 (13:48→21:14)
[2016-07-23 15:08] LABS: BACTERIA, URINE OCC /hpf; BLOOD, URINE MOD (NEG); COMMENT (UR) CULT NOT INDICATED; CULTURE IF INDICATED CULT NOT INDICATED; GLUCOSE,URINE NEG (NEG); HYALINE CAST, URINE 1 /lpf (RARE); KETONE, URINE NEG (NEG); MUCUS URINE FEW /lpf (OCC); NITRITE,URINE NEG (NEG); PH, URINE 5.5 (5.0-8.5); SQUAMOUS EPITHELIAL CELL URINE <1 /hpf (0-5); URINE COLOR YELLOW (YELLW/STRAW)
[2016-07-23 16:00] VITALS: BP 125/61; PULSE 93; RESP 18; TEMP 98.1; O2SAT 99
[2016-07-23 20:27] VITALS: BP 113/60; PULSE 89; RESP 18; TEMP 98.7; O2SAT 96
--- NOTE | 2016-07-23 21:45 | HHI.PR ---
Subjective Remarks Patient sitting in bed. He reports that pain continues but is controlled. Denies any chest pain or shortness of breath. Ongoing fevers today. Discussed with nursing. Objective Vital Signs Date Time Temp Pulse Resp B/P Pulse Ox O2 Delivery O2 Flow Rate FiO2 07/23/16 20:27 98.7 89 18 113/60 96 07/23/16 16:00 98.1 93 18 125/61 99 07/23/16 12:00 103.0 116 18 125/64 96 07/23/16 09:50 18 07/23/16 08:15 Room Air 07/23/16 08:00 99.8 115 20 128/56 96 07/23/16 04:19 98.8 97 20 126/60 98 07/23/16 00:05 100.3 116 18 132/57 97 I/O 07/22/16 07/22/16 07/22/16 07/23/16 07/23/16 07/23/16 07:00 15:00 23:00 07:00 15:00 23:00 Intake Total 1008 ml 597 ml 500 ml 720 ml 2647 ml Output Total 300 ml 1350 ml 2100 ml 1050 ml 1650 ml Balance 708 ml -753 ml -1600 ml -330 ml 997 ml Intake Oral 240 ml 500 ml 720 ml 720 ml IV Total 1008 ml 357 ml 1927 ml Output Urine Total 300 ml 800 ml 1300 ml 0 ml 1650 ml Drainage Total 550 ml 800 ml 1050 ml # Bowel Movements 0 1 0 0 Result Diagram: 07/23/16 1058 07/23/16 1058 Objective Remarks GENERAL: Sitting up in bed. Appears slightly uncomfortable. Alert. Oriented 3. SKIN: Warm and dry. HEAD: Normocephalic. EYES: No scleral icterus. No injection or drainage. NECK: Supple, trachea midline. No JVD. CARDIOVASCULAR: Regular rate and rhythm without murmurs, gallops, or rubs. RESPIRATORY: Breath sounds equal bilaterally. No accessory muscle use. GASTROINTESTINAL: Abdomen soft, non-tender, nondistended. Ileal conduit right lower quadrant. Clear urine. MUSCULOSKELETAL: No cyanosis, or edema. BACK: Nontender without obvious deformity. No CVA tenderness. A/P Assessment and Plan //Severe Sepsis -patient continues with tachycardia, fevers, leukocytosis, complicated UTI. -07/23. Recurrent fever 103. Repeat blood, urinalysis from bilateral nephrostomy tubes. Fluids. Switch to Zosyn. There is a possibility that fevers are malignancy related, however we'll need to treat any infection first. -Consult infectious disease. //Complicated urinary tract infection Patient with history of invasive bladder cancer, ileal conduit, recent CT scan does indicate hydronephrosis, hydroureters, status post bilateral nephrostomies on 07/22. Flavminonas pansensitive. -Due to recurrent fevers on 07/23. Start on Zosyn. Repeat cultures pending. As above. //Leukocytosis Secondary to infection Continue monitor. As above. //Invasive bladder cancer with hydronephrosis, hydroureters Bilateral hydronephrosis as below. Student Finance Advisor/oncologist has evaluated the patient and recommending palliative chemotherapy versus checkpoint inhibitor. Palliative care physician following patient for better pain control and management on methadone -he states that this pain regimen is adequate -Pain reasonably well controlled. Continue to monitor. //Bilateral hydronephrosis. -Renal scan confirmed high-grade obstruction on the right, partial obstruction of the left -Underwent bilateral. Urology placed bilateral nephrostomy tubes 07/22. -Patient will need bilateral double J stents placed by IR this coming week. -Urology following. Appreciate assistance. DVT prophylaxis Sequential compression devices, anticoagulation on hold due to pending procedure. DO NOT RESUSCITATE CODE STATUS. Discharge Planning Ongoing sepsis. Planning for double-J stents to be placed this coming week by IR. Ajay Aceves MD Jul 23, 2016 21:45
[2016-07-24] VITALS (10 sets, daily range): BP systolic 117–137; BP diastolic 56–73; PULSE 92–119; RESP 18–20; TEMP 97.8–102.9; O2SAT 94–98
[2016-07-24] MEDS: HYDROmorphone HCL PF 1 MG/ML VIAL IV PUSH PRN ×6 (00:30→15:48)
[2016-07-24] MEDS ORDERED: PHARMACY ORDERED LAB XX ONE (02:45)
[2016-07-24] MEDS: VANCOMYCIN 1,000 MG/NS 250 ML IV SCH ×4 (03:26→09:58)
[2016-07-24] MEDS: SODIUM CHLOR 0.9% 1000 ML INJ 1,000 ML IV SCH ×3 (03:32→17:44)
[2016-07-24] MEDS: LORazepam 0.5 MG TAB PO SCH ×3 (05:38→22:07)
[2016-07-24] MEDS: PIPERACIL-TAZO 3.375 GM PREMIX 50 ML IV SCH ×3 (05:38→20:38)
[2016-07-24 05:59] LABS: AUTOMATED NEUTROPHIL # 24.5 TH/MM3 (1.8-7.7); BASOPHIL # 0.1 TH/MM3 (0-0.2); BASOPHIL % 0.2 % (0.0-2.0); EOSINOPHIL % 3.4 % (0.0-4.0); LYMPH % 6.4 % (9.0-44.0); LYMPHOCYTE # 1.8 TH/MM3 (1.0-4.8); MEAN CELL VOLUME 91.1 FL (80.0-100.0); MEAN CORPUSCULAR HEMOGLOBIN 30.5 PG (27.0-34.0); MEAN CORPUSCULAR HGB CONC 33.5 % (32.0-36.0); MONO % 4.7 % (0.0-8.0); NEUT % 85.3 % (16.0-70.0); PLATELET COUNT 284 TH/MM3 (150-450); RED BLOOD COUNT 2.27 MIL/MM3 (4.50-5.90); RED CELL DISTRIBUTION WIDTH 15.5 % (11.6-17.2); WHITE BLOOD COUNT 28.7 TH/MM3 (4.0-11.0)
[2016-07-24 06:08] LABS: HEMO FLAGS AUTO DIFF
[2016-07-24 06:10] LABS: HEMATOCRIT 20.7 % (39.0-51.0)
[2016-07-24] MEDS ORDERED: SODIUM CHLOR 0.9% 250 ML INJ 250 ML IV ONE (06:15)
[2016-07-24 06:21] LABS: BICARBONATE 27.7 MEQ/L (21.0-32.0); MAGNESIUM 1.5 MG/DL (1.5-2.5); POTASSIUM 3.4 MEQ/L (3.5-5.1)
[2016-07-24 07:44] LABS: BANDS 28 % (0-6); EOSINOPHILS 1 % (0-4); NEUTROPHIL # MANUAL DIFF 26.4 TH/MM3 (1.8-7.7); POLYS (SEG NEUTROPHILS) 64 % (16-70); TOXIC GRANULATION 1+ (NORMAL); TOXIC VACUOLATION PRESENT (NONE SEEN); WBC DIFF SAMPLE 100
[2016-07-24 07:45] LABS: PLATELET ESTIMATE SMEAR NORMAL (NORMAL); PLATELET MORPHOLOGY NORMAL (NORMAL)
[2016-07-24 07:46] LABS: SCAN/DIFF FINAL DIFF MANUAL
[2016-07-24] MEDS: DOCUSATE SODIUM 100 MG CAP PO SCH (09:50)
[2016-07-24] MEDS: METHADONE HCL 10 MG TAB PO SCH (09:50)
[2016-07-24] MEDS: SODIUM CHLORIDE 0.9% FLUSH 5 ML FLUSH FLUSH SCH ×2 (09:52→20:38)
[2016-07-24] MEDS: ACETAMINOPHEN 325 MG TAB PO PRN (12:41)
[2016-07-24] MEDS: ONDANSETRON HCL 4 MG/2 ML VIAL IV PUSH PRN (14:25)
[2016-07-24] MEDS ORDERED: POTASSIUM CHLORIDE 10 MEQ CONTROLLED RELEASE TAB PO ONE (15:15)
[2016-07-24] MEDS ORDERED: oxyCODONE HCL 10 MG CONTROLLED RELEASE TAB PO ONE (15:30)
[2016-07-24] MEDS: VANCOMYCIN INJ 1,250 MG in SODIUM CHLOR 0.9% 250 ML INJ 250 ML IV SCH (15:49)
--- NOTE | 2016-07-24 15:51 | PD.ID.CON ---
History of Present Illness Service ID Consult Requested By Dr Smith Reason for Consult fever, UTI Primary Care Physician Unknown Diagnoses: History of Present Illness 50 M with long h/o neurogenic bladder p remote spinal surgery and heavy tobacco use diagnosed metastatic bladder ca last year, sp radiacl cystectomy with ileal conduit presented 2 days ago with fever, flank pain Renal scan showed high grade obstruction on the right with partial obstruction on the left sp bl nephrostomies placed 2 days ago Urine cw UTI, clx positive for deleon S >100,000 CFU/ML FLAVIMONAS ORYZIHABITANS Admission blood cultures have Staph haemolyticus in 1/4 bottles was on appropriate abx since admission and still not responding (zosyn, cefepime ) cont to have fever up to 102.9 Review of Systems Except as stated in HPI: all other systems reviewed are Neg Past Family Social History Allergies: Coded Allergies: No Known Allergies (Unverified , 07/19/16) Past Medical History Invasive bladder cancer Hypertension History of neurogenic bladder History of spinal tumor status post resection Past Surgical History Spinal tumor resection Bladder resection Cystoscopies Radical cystoprostatectomy with bilateral pelvis lymph node dissection and creation of ileal conduit Active Ordered Medications Medications where reviewed in EMR Antibiotics Include: zosyn Family History Reviewed Father from lymphoma Social History Patient quit smoking January 2016 when he was diagnosed with cancer. Prior to that he smoked one pack a cigarettes a day since he was 16 years old. Patient also quit drinking alcohol at the same time. Patient denies any illicit drugs. Physical Exam Vital Signs Vital Signs Date Time Temp Pulse Resp B/P Pulse Ox O2 Delivery O2 Flow Rate FiO2 07/24/16 12:00 102.9 117 18 132/69 94 07/24/16 08:00 Room Air 07/24/16 08:00 99.7 93 18 117/57 94 07/24/16 04:22 100.6 106 18 119/56 97 07/24/16 00:00 100.1 119 20 137/73 98 07/23/16 20:27 98.7 89 18 113/60 96 07/23/16 16:00 98.1 93 18 125/61 99 Physical Exam CONSTITUTIONAL/GENERAL: This is an adequately nourished patient, in no apparent distress. TUBES/LINES/DRAINS: SKIN: No jaundice, rashes, or lesions. Skin temperature appropriate. Not diaphoretic. HEAD: Atraumatic. Normocephalic. EYES: Pupils equal and round and reactive. Extraocular motions intact. No scleral icterus. No injection or drainage. Fundi not examined. ENT: Hearing grossly normal. Nose without bleeding or purulent drainage. Throat without visible erythema, exudates, masses, or lesions. NECK: Trachea midline. Supple, nontender. No palpable thyroid enlargement or nodularity. CARDIOVASCULAR: Regular rate and rhythm without murmurs, gallops, or rubs. No JVD. Peripheral pulses symmetric. RESPIRATORY/CHEST: Symmetric, unlabored respirations. Clear to auscultation. Breath sounds equal bilaterally. No wheezes, rales, or rhonchi. GASTROINTESTINAL: Abdomen soft, non-tender, nondistended. No hepato-splenomegaly , or palpable masses. No guarding. Bowel sounds present. GENITOURINARY: Ileostomi in RLQ pink draining faily clear urine b/l nephrostomies in place with very cloudy dark urine. MUSCULOSKELETAL: Extremities without clubbing, cyanosis, or edema. No joint tenderness or effusion noted. No calf tenderness. No mottling or clubbing. NEUROLOGICAL: Awake and alert. Motor and sensory grossly within normal limits. Follows commands. Normal speech. Moves all extremities. PSYCHIATRIC: No obvious anxiety/depression. no apparent hallucinations or other psychotic thought process. Laboratory Laboratory Tests Test 07/24/16 07/24/16 07/24/16 02:45 05:45 07:10 Vancomycin Level Trough 8.2 White Blood Count 28.7 Red Blood Count 2.27 Hemoglobin 6.9 Hematocrit 20.7 Mean Corpuscular Volume 91.1 Mean Corpuscular Hemoglobin 30.5 Mean Corpuscular Hemoglobin 33.5 Concent Red Cell Distribution Width 15.5 Platelet Count 284 Mean Platelet Volume 7.2 Neutrophils (%) (Auto) 85.3 Lymphocytes (%) (Auto) 6.4 Monocytes (%) (Auto) 4.7 Eosinophils (%) (Auto) 3.4 Basophils (%) (Auto) 0.2 Neutrophils # (Auto) 24.5 Lymphocytes # (Auto) 1.8 Monocytes # (Auto) 1.4 Eosinophils # (Auto) 1.0 Basophils # (Auto) 0.1 CBC Comment AUTO DIFF Differential Total Cells 100 Counted Neutrophils % (Manual) 64 Band Neutrophils % 28 Lymphocytes % 6 Monocytes % 1 Eosinophils % 1 Neutrophils # (Manual) 26.4 Differential Comment FINAL DIFF MANUAL Toxic Granulation 1+ Toxic Vacuolation PRESENT Platelet Estimate NORMAL Platelet Morphology Comment NORMAL Sodium Level 139 Potassium Level 3.4 Chloride Level 102 Carbon Dioxide Level 27.7 Anion Gap 9 Blood Urea Nitrogen 6 Creatinine 0.62 Estimat Glomerular Filtration 138 Rate Random Glucose 90 Calcium Level 8.0 Phosphorus Level 2.6 Magnesium Level 1.5 Albumin 1.6 Blood Type B POSITIVE Antibody Screen NEGATIVE Crossmatch Leukocyte-Reduced Red Blood Cells Blood Bank Comment Date/Time Procedure Status Source Growth 07/23/16 10:58 Aerobic Blood Culture - Preliminary Resulted Blood Peripheral NO GROWTH IN 1 DAY 07/23/16 10:58 Anaerobic Blood Culture - Preliminary Resulted Blood Peripheral NO GROWTH IN 1 DAY 07/23/16 10:30 Urine Culture - Preliminary Resulted Urine Clean Catch NO GROWTH IN 24 HOURS. 07/22/16 10:02 Gram Stain - Final Resulted Fluid Other 07/22/16 10:02 Body Fluid Culture - Preliminary Resulted Fluid Other NO GROWTH IN 48 HOURS. Result Diagram: 07/24/16 0545 07/24/16 0545 Imaging Last Impressions Nephrostomy 07/22/16 0000 Signed Impressions: Service Date/Time: Friday, July 22, 2016 09:43 - CONCLUSION: Uncomplicated right nephrostomy tube placement as above. The collecting system is grossly dilated. The urine was turbid and therefore sent for microbiological evaluation. Several days of decompression can be performed and then attempts at placement of ureteral stent with extension through the ileal conduit stoma. I spoke with Dr. Lee concerning this. Jessu Perez Jr., MD Renal Scan w/Medication NM 07/20/16 0000 Signed Impressions: Service Date/Time: Wednesday, July 20, 2016 15:34 - CONCLUSION: High grade obstruction on the right with partial obstruction on the left. Abdullahi Dos Santos MD Chest X-Ray 07/19/16 9567 Signed Impressions: Service Date/Time: Tuesday, July 19, 2016 15:14 - CONCLUSION: 1. The [id number] in good position. 2. The lungs are clear. Salvatore Tolbert MD Assessment and Plan Assessment and Plan Metastatic bladder CA Obstructive uropathy sp bl nephrostomies Presented with UTI, sepsis - on appropiate abx - repeat urine clx neg @ 24 hrs - persistent fever Low grade Staph haemolyticus bactermia - can be 2/2 UTI cont current abx: luh henning agree with CT A/P - will review Discussed Condition With Ro Rojas MD Jul 24, 2016 15:51
[2016-07-24] MEDS ORDERED: DIATRIZOATE MEGLUM/DIATRIZOATE SOD 9 ML CUP PO ONE (16:00)
[2016-07-24 16:46] LABS: FERRITIN 1493 NG/ML (26-388); TRANSFERRIN IRON PROFILE 76 MG/DL (200-360)
--- NOTE | 2016-07-24 18:19 | HHI.PR ---
Subjective Remarks Patient lying in bed. He says that abdominal pain is worse over the past several days. Denies any chest pain or shortness of breath. Most recent bowel movement 2 days ago. He does not feel constipated. He denies any bleeding. Discussed with nursing, as well as infectious disease. We'll increase pain medication. We'll order CT abdomen to rule out abscess status post recent surgery. Objective Vital Signs Date Time Temp Pulse Resp B/P Pulse Ox O2 Delivery O2 Flow Rate FiO2 07/24/16 16:00 98.6 94 20 128/72 98 07/24/16 12:55 102.5 116 18 132/66 96 07/24/16 12:40 102.6 117 18 133/63 95 07/24/16 12:00 102.9 117 18 132/69 94 07/24/16 08:00 Room Air 07/24/16 08:00 99.7 93 18 117/57 94 07/24/16 04:22 100.6 106 18 119/56 97 07/24/16 00:00 100.1 119 20 137/73 98 07/23/16 20:27 98.7 89 18 113/60 96 I/O 07/23/16 07/23/16 07/23/16 07/24/16 07/24/16 07/24/16 07:00 15:00 23:00 07:00 15:00 23:00 Intake Total 720 ml 2647 ml 1583 ml 1321 ml 720 ml Output Total 1050 ml 1650 ml 600 ml 1075 ml 800 ml Balance -330 ml 997 ml 983 ml 246 ml -80 ml Intake Oral 720 ml 720 ml 500 ml 650 ml 720 ml IV Total 1927 ml 1083 ml 671 ml Output Urine Total 0 ml 1650 ml 0 ml 325 ml 800 ml Drainage Total 1050 ml 600 ml 750 ml # Bowel Movements 0 0 0 0 0 Result Diagram: 07/24/16 0545 07/24/16544 Objective Remarks GENERAL: Sitting up in bed. Appears uncomfortable. Alert. Oriented 3. SKIN: Warm and dry. HEAD: Normocephalic. EYES: No scleral icterus. No injection or drainage. NECK: Supple, trachea midline. No JVD. CARDIOVASCULAR: Regular rate and rhythm without murmurs, gallops, or rubs. RESPIRATORY: Breath sounds equal bilaterally. No accessory muscle use. GASTROINTESTINAL: Abdomen soft, nondistended. Ileal conduit right lower quadrant. No surrounding erythema. Abdomen tender to moderate palpation. Diffusely. Clear urine. MUSCULOSKELETAL: No cyanosis, or edema. BACK: Nontender without obvious deformity. No CVA tenderness. A/P Assessment and Plan 50-year-old male with metastatic bladder cancer with bilateral ureteral obstruction status post bilateral placement of percutaneous nephrostomy tubes placed on 07/22/16. Antibiotics Zosyn 07/23ongoing Vancomycin07/19 - ongoing Cefepime. Discontinued. Microbiology 07/23 urine culture from right nephrostomy no growth to date 07/23 urinalysis from the left nephrostomy noninfectious appearing. 07/23. Blood cultures pending. No growth to date 07/19 urine culturepansensitive Flavmonas. 07/19 blood cultures. staph hemolyticus Last fever: 07/24. 102.9F //Severe Sepsis -patient continues with tachycardia, fevers, leukocytosis, complicated UTI. -07/23. Recurrent fever 103. Repeat blood, urinalysis from bilateral nephrostomy tubes. Fluids. Switch to Zosyn. There is a possibility that fevers are malignancy related, however we'll need to treat any infection first. -07/24. Discussed with infectious disease. CT abdomen ordered and pending. Appreciate assistance. Continue antibiotics as above. Follow-up cultures as above. //Complicated urinary tract infection Patient with history of invasive bladder cancer, ileal conduit, recent CT scan does indicate hydronephrosis, hydroureters, status post bilateral nephrostomies on 07/22. Flavminonas pansensitive. -Due to recurrent fevers on 07/23. Start on Zosyn. Repeat cultures pending. As above. -07/24. Continued fevers. Continue antibiotics as above. Infectious disease following. Follow-up cultures. //Leukocytosis Secondary to infection Continue monitor. As above. //Invasive bladder cancer with hydronephrosis, hydroureters Bilateral hydronephrosis as below. Tree Planter/oncologist has evaluated the patient and recommending palliative chemotherapy versus checkpoint inhibitor. Palliative care physician following patient for better pain control and management on methadone -he states that this pain regimen is adequate -Pain reasonably well controlled. Continue to monitor. -07/24. Will add oxyContin 20 mg twice daily, discontinue methadone. We'll increase OxyContin as necessary. //Acute on chronic anemia. -Low iron, low TIBC, high ferritin consistent with anemia of inflammation. -Hemoglobin down to 6.9 on 07/24 - likely dilutional secondary to fluid boluses. -No signs of bleeding. 07/24. Transfusion 1 unit. -Continue to monitor. //Bilateral hydronephrosis. -Renal scan confirmed high-grade obstruction on the right, partial obstruction of the left -Underwent bilateral. Urology placed bilateral nephrostomy tubes 07/22. -Patient will need bilateral double J stents placed by IR this coming week. -Urology following. Appreciate assistance. //Hypokalemia. Acute. Mild. Replace as necessary. Monitor. //DVT prophylaxis Sequential compression devices, anticoagulation on hold due to anemia. DO NOT RESUSCITATE CODE STATUS. Discharge Planning Ongoing sepsis. Planning for double-J stents to be placed this coming week by IR. Ajay Aceves MD Jul 24, 2016 18:19
[2016-07-24 18:37] LABS: HEMATOCRIT 23.6 % (39.0-51.0)
[2016-07-24 18:38] LABS: REVIEW FLAG FINAL
[2016-07-24] MEDS: oxyCODONE HCL 20 MG CONTROLLED RELEASE TAB PO SCH (20:37)
[2016-07-25] VITALS (7 sets, daily range): BP systolic 116–135; BP diastolic 58–68; PULSE 55–112; RESP 18–24; TEMP 98.4–102.7; O2SAT 94–98
[2016-07-25] MEDS ORDERED: IOHEXOL 350 MG/ML 10 ML VIAL (for RAD DIAG) IV ONE (01:04)
[2016-07-25] MEDS: VANCOMYCIN INJ 1,250 MG in SODIUM CHLOR 0.9% 250 ML INJ 250 ML IV SCH ×2 (01:26→08:45)
--- NOTE | 2016-07-25 01:29 | RADRPT ---
EXAM DATE/TIME: 07/25/2016 00:55 This report includes an Addendum and supersedes previous reports for this exam. [facility] COMPARISON: CT ABDOMEN & PELVIS W/O CONTRAST, June 01, 2016, 18:19. CT ABDOMEN & PELVIS W CONTRAST, April 11, 2016, 14:13. INDICATIONS : Abdominal pain. IV CONTRAST: 95 cc Omnipaque 350 (iohexol) IV ORAL CONTRAST: Prescribed oral contrast ingested. RADIATION DOSE: 9.96 CTDIvol (mGy) MEDICAL HISTORY : Cardiovascular disease. Hypertension. Carcinoma, bladder. SURGICAL HISTORY : Tumor removed from spine. ENCOUNTER: Initial ACUITY: 1 day PAIN SCALE: 5/10 LOCATION: Bilateral abdomen TECHNIQUE: Volumetric scanning of the abdomen and pelvis was performed. Using automated exposure control and ad justment of the mA and/or kV according to patient size, radiation dose was kept as low as reasonably achievable to obtain optimal diagnostic quality images. FINDINGS: LOWER LUNGS: Minimal bibasilar atelectatic changes. Lung bases are otherwise clear LIVER: Interval development of multiple hepatic metastases in both the left and right hepatic lobes. The lar gest mass lesion is seen in the caudate lobe measuring 7.6 x 4.1 cm. SPLEEN: Spleen remains prominent at almost 14 cm. PANCREAS: Within normal limits. KIDNEYS: Interval placement of bilateral nephrostomy tubes for marked hydronephrosis seen previously. The hydr onephrosis has resolved. ADRENAL GLANDS: Within normal limits. VASCULAR: There is no aortic aneurysm. BOWEL/MESENTERY: Extensive mesenteric and omental metastases with central necrosis. These lesions measure upwards of 8 cm in diameter. ABDOMINAL WALL: Ileostomy and the right lower abdomen. Nodular densities in a vertical incision are concerning for me tastatic disease in the surgical scar. RETROPERITONEUM: Prominent lymph nodes along both iliac chains and subjacent to the aortic bifurcation. BLADDER: Apparent resection of the urinary bladder but there are bulky mass lesions in the bladder bed.. REPRODUCTIVE: Within normal limits. INGUINAL: There is no lymphadenopathy or hernia. MUSCULOSKELETAL: Within normal limits for patient age. CONCLUSION: 1. Interval development of extensive metastases. In addition to the bulky mass lesions in the urinary bladder bed, there are now large omental and mesenteric masses with central necrosis, retroperitonea l and anterior abdominal wall metastatic deposits with extensive metastasis to the liver. 2. Interval placement of bilateral nephrostomy tubes with decompression of the previously hydronephro tic kidneys. Preston Ewing MD on July 25, 2016 at 1:15 Board Certified Radiologist. This report was verified electronically. ADDENDUM: COMPARISON: CT ABDOMEN & PELVIS W & W/O CONTRAST, July 13, 2016, 13:43. It has been brought to our attention that a more recent comparison study is available. The liver lesi ons are stable in number but they have increased in size. In particular a anterior right lobe liver l esion currently measures 2.2 x 1.9 cm compared to 1.8 x 1.4 cm previously. Also, there are 2 lesions near the dome that measure approximately 13 mm each that were previously barely visible measuring julieth roximately 8 mm. No new liver lesion is identified. There is a extrahepatic mass abutting the right l obe of the liver that currently measures 7.8 x 4.1 cm compared to 5.6 x 3.4 cm previously. Throughout the abdomen and pelvis there are multiple peritoneal based masses that have also increased in size. In particular the mass in the right lower quadrant in the iliac fossa measures 9.5 x 6.3 cm compared to 8.0 x 5.6 cm previously. Another index lesion in the left mid abdomen anteriorly measures 7.3 x 7. 1 cm compared to 4.2 x 3.2 cm previously. Multiple pelvic soft tissue masses are present and these cain ve also increased in size. In the left inferior pelvis a mass currently measures 7.0 x 5.4 cm compare d to 4.6 x 4.9 cm previously. Please see above for description of the remaining findings. IMPRESSION: Comparison was made to the more recent prior examination dated 07/13/2016. As describe d above, the multiple liver lesions and solid masses within the abdomen and pelvis have increased in size. Index measurements are given above. Findings are indicative of interval progression of disease. Ochoa Roberson MD on July 26, 2016 at 16:44 Board Certified Radiologist. This report was verified electronically.
[2016-07-25] MEDS: HYDROmorphone HCL PF 1 MG/ML VIAL IV PUSH PRN ×3 (01:35→20:10)
[2016-07-25] MEDS: LORazepam 0.5 MG TAB PO SCH ×3 (05:45→22:07)
[2016-07-25] MEDS: PIPERACIL-TAZO 3.375 GM PREMIX 50 ML IV SCH ×3 (05:46→23:39)
[2016-07-25 06:16] LABS: AUTOMATED NEUTROPHIL # 26.5 TH/MM3 (1.8-7.7); BASOPHIL # 0.1 TH/MM3 (0-0.2); BASOPHIL % 0.4 % (0.0-2.0); EOSINOPHIL # 0.9 TH/MM3 (0-0.4); EOSINOPHIL % 2.9 % (0.0-4.0); HEMATOCRIT 22.6 % (39.0-51.0); LYMPH % 4.7 % (9.0-44.0); LYMPHOCYTE # 1.4 TH/MM3 (1.0-4.8); MEAN CELL VOLUME 90.2 FL (80.0-100.0); MEAN CORPUSCULAR HEMOGLOBIN 31.1 PG (27.0-34.0); MEAN CORPUSCULAR HGB CONC 34.5 % (32.0-36.0); MONO % 3.9 % (0.0-8.0); NEUT % 88.1 % (16.0-70.0); PLATELET COUNT 308 TH/MM3 (150-450); RED BLOOD COUNT 2.51 MIL/MM3 (4.50-5.90); RED CELL DISTRIBUTION WIDTH 15.5 % (11.6-17.2); WHITE BLOOD COUNT 30.1 TH/MM3 (4.0-11.0)
[2016-07-25 06:23] LABS: HEMO FLAGS AUTO DIFF
[2016-07-25 06:33] LABS: MAGNESIUM 1.6 MG/DL (1.5-2.5); POTASSIUM 3.4 MEQ/L (3.5-5.1)
[2016-07-25 07:35] LABS: BANDS 27 % (0-6); NEUTROPHIL # MANUAL DIFF 27.4 TH/MM3 (1.8-7.7); PLATELET ESTIMATE SMEAR NORMAL (NORMAL); PLATELET MORPHOLOGY NORMAL (NORMAL); POLYS (SEG NEUTROPHILS) 64 % (16-70); SCAN/DIFF FINAL DIFF MANUAL; TOXIC GRANULATION 2+ (NORMAL); TOXIC VACUOLATION PRESENT (NONE SEEN); WBC DIFF SAMPLE 100
--- NOTE | 2016-07-25 08:37 | HHI.PR ---
Subjective Remarks Pt resting comfortably. Pain is better controlled today. Tolerating PO. Tmax yesterday 102.9. ID input appreciated. Objective Vital Signs Vital Signs Date Time Temp Pulse Resp B/P Pulse Ox O2 Delivery O2 Flow Rate FiO2 07/25/16 04:00 99.1 112 18 131/58 94 07/25/16 04:00 99.1 112 18 131/58 94 07/25/16 01:07 98.4 55 24 131/60 97 07/25/16 00:00 98.4 104 24 131/60 97 07/24/16 20:38 Room Air 07/24/16 20:00 97.8 92 18 118/58 95 07/24/16 16:00 98.6 94 20 128/72 98 07/24/16 13:00 102.4 117 18 132/66 94 07/24/16 12:55 102.5 116 18 132/66 96 07/24/16 12:45 102.6 117 18 133/63 95 07/24/16 12:40 102.6 117 18 133/63 95 07/24/16 12:00 102.9 117 18 132/69 94 I/O 07/24/16 07/24/16 07/24/16 07/25/16 07/25/16 07/25/16 07:00 15:00 23:00 07:00 15:00 23:00 Intake Total 1321 ml 720 ml 688 ml 916 ml Output Total 1075 ml 800 ml 900 ml 850 ml Balance 246 ml -80 ml -212 ml 66 ml Intake Oral 650 ml 720 ml IV Total 671 ml 688 ml 916 ml Output Urine Total 325 ml 800 ml 0 ml 850 ml Drainage Total 750 ml 900 ml # Voids 0 # Bowel Movements 0 0 Result Diagram: 07/25/16 0500 07/25/16 0500 Imaging Last 48 hours Impressions Renal Scan w/Medication NM 07/20/16 0000 Signed Impressions: Service Date/Time: Wednesday, July 20, 2016 15:34 - CONCLUSION: High grade obstruction on the right with partial obstruction on the left. Abdullahi Dos Santos MD Chest X-Ray 07/19/16 1457 Signed Impressions: Service Date/Time: Tuesday, July 19, 2016 15:14 - CONCLUSION: 1. The [id number] in good position. 2. The lungs are clear. Salvatore Tolbert MD Objective Remarks Abd:soft,nt,nd B/L PCNT's in place and draining well. 07/25/16 Abd:soft,nt,nd B/L PCNT's in place and draining well. Assessment and Plan Problem List: (1) Urinary tract infection ICD Code: N39.0 Status: Acute (2) Bilateral hydronephrosis ICD Code: N13.30 Status: Chronic (3) Invasive carcinoma of urinary bladder ICD Code: C67.9 Status: Chronic Assessment and Plan -Plan for Bilateral nephrostomy tubes today -Will discuss with and defer further care as patient is known to him -Please call with questions 07/22/16 50 y.o male with metastatic bladder cancer with b/l ureteral obstruction s/p b/ l placement of PCNT's Check cultures Continue ABX Will need internalization with b/l JJ stents by IR next week. 07/25/16 50 y.o male with metastatic bladder cancer with b/l ureteral obstruction s/p b/ l placement of PCNT's CT shows worsen evidence of metastatics Maintain b/l PCNT's for now. May not change to internalized stents as stents will fail with increase in bulky disease. Continue ABX Pain control Eulogio Lee DO Jul 25, 2016 08:37
[2016-07-25] MEDS: DOCUSATE SODIUM 100 MG CAP PO SCH (08:44)
[2016-07-25] MEDS: SODIUM CHLORIDE 0.9% FLUSH 5 ML FLUSH FLUSH SCH ×2 (08:45→20:10)
[2016-07-25] MEDS: oxyCODONE HCL 20 MG CONTROLLED RELEASE TAB PO SCH (08:45)
[2016-07-25] MEDS: SODIUM CHLOR 0.9% 1000 ML INJ 1,000 ML IV SCH (08:47)
[2016-07-25] MEDS ORDERED: Vancomycin Consult Pharmacy 1 EA IV SCH (09:15)
--- NOTE | 2016-07-25 11:32 | PD.ONC.PN ---
Subjective Subjective Remarks Tmax 100F overnight. Patient feeling tired today. He is frustrated that he has to keep the nephrostomy tubes in place. Objective Data Date Time Temp Pulse Resp B/P Pulse Ox O2 Delivery O2 Flow Rate FiO2 07/25/16 08:56 Room Air 07/25/16 08:00 100.0 94 20 116/58 96 07/25/16 04:00 99.1 112 18 131/58 94 07/25/16 04:00 99.1 112 18 131/58 94 07/25/16 01:07 98.4 55 24 131/60 97 07/25/16 00:00 98.4 104 24 131/60 97 07/24/16 20:38 Room Air 07/24/16 20:00 97.8 92 18 118/58 95 07/24/16 16:00 98.6 94 20 128/72 98 07/24/16 13:00 102.4 117 18 132/66 94 07/24/16 12:55 102.5 116 18 132/66 96 07/24/16 12:45 102.6 117 18 133/63 95 07/24/16 12:40 102.6 117 18 133/63 95 07/24/16 12:00 102.9 117 18 132/69 94 Result Diagram: 07/25/16 0500 07/25/16 0500 Laboratory Results Laboratory Tests Test 07/24/16 07/25/16 18:20 05:00 Hemoglobin 7.8 GM/DL 7.8 GM/DL Hematocrit 23.6 % 22.6 % White Blood Count 30.1 TH/MM3 Red Blood Count 2.51 MIL/MM3 Mean Corpuscular Volume 90.2 FL Mean Corpuscular Hemoglobin 31.1 PG Mean Corpuscular Hemoglobin 34.5 % Concent Red Cell Distribution Width 15.5 % Platelet Count 308 TH/MM3 Mean Platelet Volume 7.4 FL Neutrophils (%) (Auto) 88.1 % Lymphocytes (%) (Auto) 4.7 % Monocytes (%) (Auto) 3.9 % Eosinophils (%) (Auto) 2.9 % Basophils (%) (Auto) 0.4 % Neutrophils # (Auto) 26.5 TH/MM3 Lymphocytes # (Auto) 1.4 TH/MM3 Monocytes # (Auto) 1.2 TH/MM3 Eosinophils # (Auto) 0.9 TH/MM3 Basophils # (Auto) 0.1 TH/MM3 CBC Comment AUTO DIFF Differential Total Cells 100 Counted Neutrophils % (Manual) 64 % Band Neutrophils % 27 % Lymphocytes % 5 % Monocytes % 4 % Neutrophils # (Manual) 27.4 TH/MM3 Differential Comment FINAL DIFF MANUAL Toxic Granulation 2+ Toxic Vacuolation PRESENT Platelet Estimate NORMAL Platelet Morphology Comment NORMAL Polychromasia 2.0 % Sodium Level 140 MEQ/L Potassium Level 3.4 MEQ/L Chloride Level 103 MEQ/L Carbon Dioxide Level 28.0 MEQ/L Anion Gap 9 MEQ/L Blood Urea Nitrogen 7 MG/DL Creatinine 0.80 MG/DL Estimat Glomerular Filtration 103 ML/MIN Rate Random Glucose 105 MG/DL Calcium Level 8.2 MG/DL Phosphorus Level 2.3 MG/DL Magnesium Level 1.6 MG/DL Albumin 1.7 GM/DL Culture Results Microbiology Date/Time Procedure Status Source Growth 07/23/16 10:30 Urine Culture - Final Complete Urine Clean Catch NO GROWTH IN 48 HOURS. 07/23/16 10:53 Aerobic Blood Culture - Preliminary Resulted Blood Peripheral NO GROWTH IN 2 DAYS 07/23/16 10:53 Anaerobic Blood Culture - Preliminary Resulted Blood Peripheral NO GROWTH IN 2 DAYS 07/23/16 10:58 Aerobic Blood Culture - Preliminary Resulted Blood Peripheral NO GROWTH IN 2 DAYS 07/23/16 10:58 Anaerobic Blood Culture - Preliminary Resulted Blood Peripheral NO GROWTH IN 2 DAYS Administered Medications Medications (Trade) Dose Ordered Sig/Ambika Route PRN Reason Start Time Stop Time Status Last Admin Dose Admin Sodium Chloride (NS 1000 ml Inj) 1,000 ml @ 100 mls/hr Q10H IV 07/19/16 17:44 07/25/16 08:47 IV Flush (NS Flush) 2 ml UNSCH PRN FLUSH FLUSH AFTER USING IV ACCESS 07/19/16 17:45 07/20/16 05:58 IV Flush (NS Flush) 2 ml BID FLUSH 07/19/16 21:00 07/24/16 09:52 Acetaminophen (Tylenol) 650 mg Q4H PRN PO fever >101 07/19/16 20:00 07/24/16 12:41 Citalopram Hydrobromide (CeleXA) 20 mg DAILY PO 07/20/16 13:00 Hold 07/20/16 13:00 Lorazepam (Ativan) 0.5 mg Q8HR PO 07/20/16 14:00 07/25/16 05:45 Lorazepam (Ativan) 1 mg Q6H PRN PO anxiety/sob #6-10 07/20/16 13:00 07/22/16 00:36 Hydromorphone HCl (Dilaudid Pf Inj) 0.75 mg Q3HR PRN IV PUSH pain >5 07/20/16 13:45 07/25/16 01:35 Docusate Sodium (Colace) 100 mg DAILY PO 07/22/16 09:00 07/25/16 08:44 Ondansetron HCl 4 mg 4 mg Q6HR PRN IV PUSH NAUSEA OR VOMITING 07/23/16 11:45 07/24/16 14:25 Piperacillin Sod/ Tazobactam Sod (Zosyn 3.375 Gm Premix) 50 ml @ 100 mls/hr Q8H IV 07/23/16 14:00 07/25/16 05:46 Oxycodone HCl (OxyCONTIN CR) 20 mg Q12HR PO 07/24/16 21:00 07/25/16 08:45 Objective Remarks GENERAL: Middle aged male, lying supine in bed. SKIN: Warm and dry. HEAD: Normocephalic. EYES: No injection or drainage. NECK: Supple, trachea midline. CARDIOVASCULAR: Regular rate and rhythm RESPIRATORY: Breath sounds equal bilaterally. No accessory muscle use. GASTROINTESTINAL: Abdomen soft, non-tender, nondistended. BPNT draining clear yllow urine. EXTREMITIES: No cyanosis NEUROLOGICAL: awake and alert, normal speech. moving all extremities. 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 discussed waiting on infection to clear. 07/22: discussed possible treatment with Keytruda once discharged. discussed need for current infection to resolve before further treatment could be considered. Post palliative surgery for hematuria, pt suspected to have metastatic disease and recurrence. Course complicated by Gm neg trinity uremia, ? gm + cocci bacteremia, significant leukocytosis, and hydronephrosis/obstruction. Need for acute events to resolve before cancer directed therapy could be initiated such as check point inhibitor as out pt. Assessment 50 y/o man with muscle invasive bladder cancer, with progression to metastatic disease admitted for urosepsis/gm neg trinity. Plan 1. abx per ID 2. plan for immunotherapy in clinic once infection cleared. Attending Statement The exam, history, and the medical decision-making described in the above note were completed with the assistance of the mid-level provider. I reviewed and agree with the findings presented. I attest that I had a [id number] encounter with the patient on the same day, and personally performed and documented my assessment and findings in the medical record. Pt seen and examined, mainly because pain is better controlled on long acting and breakthrough. Feels the fevers but they are transient. Limited mobility due to BL nephrostomy tubes, which he is worried about displacing. Noted progression of disease, plan for palliative treatment in place pending pt can have a stable DC to start. ID consulted to r/o infectious etiology to fevers. Leukocytosis persist and unchanged predominantly neutrophils. Jesika Wilkes Jul 25, 2016 11:32 Idalia Lee MD Jul 25, 2016 19:03
[2016-07-25] MEDS: ONDANSETRON HCL 4 MG/2 ML VIAL IV PUSH PRN (11:47)
[2016-07-25] MEDS: ACETAMINOPHEN 325 MG TAB PO PRN (13:00)
[2016-07-25] MEDS ORDERED: POTASSIUM PHOSPHATE INJ 15 MMOL in SODIUM CHLORIDE 0.9% INJ 150 ML IV ONE (14:45)
[2016-07-25] MEDS ORDERED: MAGNESIUM SULFATE 1 GM PREMIX 100 ML IV ONE (14:45)
[2016-07-25] MEDS ORDERED: oxyCODONE HCL 10 MG CONTROLLED RELEASE TAB PO ONE (15:00)
--- NOTE | 2016-07-25 15:33 | HHI.HCPN ---
Reason for visit a. To assist with evaluation and management of symptoms including: pain; anxiety; fever. b. To assist medical decision maker(s) with: better understanding of current medical conditions; weighing benefits/burdens of medical treatment options; making medical treatment decisions. . Subjective/Interval History Mr. Hednerson reports pain is adequately controlled -- he still gets pain levels up to 8 on rare occasions but is satisfied with the pain levels at this point and does not want adjustment in pain meds today. He is more bothered by his recurrent fevers (last temp at noon was 102.7 ) for which he is using acetaminophen and ice packs. Fevers continue in spite of vancomycin and Zosyn and organism showing susceptibility. Bowels are moving. Continues to have good urine output via his bilateral nephrostomy tubes. Sleeping OK at night. No nausea -- tolerating PO. He reports anxiety and sleep are helped by the lorazepam. Patient is frustrated with the fevers and knows he cannot go forward with cancer treatments until his infection is adequately controlled and he is able to leave the hospital. Pain regimen was changed from methadone (stopped on 07/24/16) to oxycodone sustained release. He is now on 30 mg of oxycodone q 12 hours ATC. He required 6 doses of 0.75 iv hydromorphone (total of 90 mg of oral morphine equivalents ) on 07/24/16 . He has not received any PRN doses of the lorazepam. Tmax 102.7; Other VS stable. WBC 30.1. (27% bands) Hg 7.8; Albumin 1.7 CT abd/pelvis --> no evidence of abscess. Extensive mets and nephrostomy tubes noted. . Family/friend interactions Brother at bedside. Questions answered. . Advance Directives Living Will: Copy in medical record Health Care Surrogate: Copy in medical record Durable Power of Geologic Technician: Never completed Advance Directive Specifics Date completed: The patient completed a living will with my assistance on 07/20/16. . Health Care Surrogate(s): The patient has designated his Payal Suazo his health care surrogate. . Documented care wishes: The patient is completed a standard [place] living will indicating that he would not want life prolonging measures should he be found to have an end-stage condition; terminal condition; or persistent vegetative state. . Objective Vital Signs Date Time Temp Pulse Resp B/P Pulse Ox O2 Delivery O2 Flow Rate FiO2 07/25/16 12:00 102.7 108 20 135/68 95 07/25/16 08:56 Room Air 07/25/16 08:00 100.0 94 20 116/58 96 07/25/16 04:00 99.1 112 18 131/58 94 07/25/16 04:00 99.1 112 18 131/58 94 07/25/16 01:07 98.4 55 24 131/60 97 07/25/16 00:00 98.4 104 24 131/60 97 07/24/16 20:38 Room Air 07/24/16 20:00 97.8 92 18 118/58 95 07/24/16 16:00 98.6 94 20 128/72 98 . Physical Exam CONSTITUTIONAL/GENERAL: This is a thin male who is diaphoretic and uncomfortable appearing but otherwise awake, alert, conversant. TUBES/LINES/DRAINS: [id number] right chest; ileoconduit, bilateral nephrostomy tubes; bialteral support hose. SKIN: No jaundice, or lesions. Eczematous type rash on forehead. Healed abdominal surgical scars. Skin warm to touch and diaphoretic. CARDIOVASCULAR: tachycardic. RESPIRATORY/CHEST: Symmetric, unlabored respirations. Clear to auscultation. Breath sounds equal bilaterally. Right sided [id number]. GASTROINTESTINAL: Diffuse mild-moderate tenderness across the lower abdomen. Abdomen soft, nondistended. No hepato-splenomegaly, or palpable masses. No guarding. Bowel sounds present. Ileoconduit present (no urine in bag). Bilateral nephrostomy tubes with good drainage. GENITOURINARY: Ileoconduit present (no urine in bag). Bilateral nephrostomy tubes with good drainage. MUSCULOSKELETAL: Extremities without clubbing, cyanosis, or edema. No mottling. NEUROLOGICAL: Awake and alert. Motor and sensory grossly within normal limits. Follows commands. Cognitively sharp. Moves all extremities. PSYCHIATRIC: Appears relaxed. No obvious depression. No evidence of psychotic thought process. . . Diagnostic Tests Laboratory Laboratory Tests Test 07/23/16 07/23/16 07/23/16 07/23/16 10:30 10:58 13:42 14:55 Urine Color YELLOW YELLOW (YELLW/STRAW) (YELLW/STRAW) Urine Turbidity HAZY (CLEAR) HAZY (CLEAR) Urine pH 5.5 (5.0-8.5) 5.5 (5.0-8.5) Urine Specific [place] 1.010 1.013 (1.002-1.035) (1.002-1.035) Urine Protein 30 mg/dL 30 mg/dL (NEG-TRACE) (NEG-TRACE) Urine Glucose (UA) NEG mg/dL (NEG) NEG mg/dL (NEG) Urine Ketones NEG mg/dL (NEG) NEG mg/dL (NEG) Urine Occult Blood LARGE (NEG) MOD (NEG) Urine Nitrite NEG (NEG) NEG (NEG) Urine Bilirubin NEG (NEG) NEG (NEG) Urine Urobilinogen LESS THAN 2.0 LESS THAN 2.0 MG/DL (LESS MG/DL (LESS THAN 2.0) THAN 2.0) Urine Leukocyte Esterase SMALL (NEG) NEG (NEG) Urine RBC 89 /hpf (0-3) 46 /hpf (0-3) Urine WBC 11 /hpf (0-5) 5 /hpf (0-5) Urine Squamous Epithelial <1 /hpf (0-5) <1 /hpf (0-5) Cells Urine Transitional Epithelial <1 /hpf (NONE) Cells Urine Uric Acid Crystals RARE /hpf (NONE) Urine Bacteria RARE /hpf OCC /hpf (NONE) (NONE) Urine Mucus FEW /lpf (OCC) FEW /lpf (OCC) Microscopic Urinalysis Comment CULTURE CULT NOT INDICATED INDICATED White Blood Count 34.3 TH/MM3 (4.0-11.0) Red Blood Count 2.41 MIL/MM3 (4.50-5.90) Hemoglobin 7.5 GM/DL (13.0-17.0) Hematocrit 22.1 % (39.0-51.0) Mean Corpuscular Volume 91.6 FL (80.0-100.0) Mean Corpuscular Hemoglobin 31.0 PG (27.0-34.0) Mean Corpuscular Hemoglobin 33.8 % Concent (32.0-36.0) Red Cell Distribution Width 15.7 % (11.6-17.2) Platelet Count 317 TH/MM3 (150-450) Mean Platelet Volume 7.3 FL (7.0-11.0) Neutrophils (%) (Auto) 90.0 % (16.0-70.0) Lymphocytes (%) (Auto) 2.5 % (9.0-44.0) Monocytes (%) (Auto) 5.0 % (0.0-8.0) Eosinophils (%) (Auto) 2.3 % (0.0-4.0) Basophils (%) (Auto) 0.2 % (0.0-2.0) Neutrophils # (Auto) 30.8 TH/MM3 (1.8-7.7) Lymphocytes # (Auto) 0.9 TH/MM3 (1.0-4.8) Monocytes # (Auto) 1.7 TH/MM3 (0-0.9) Eosinophils # (Auto) 0.8 TH/MM3 (0-0.4) Basophils # (Auto) 0.1 TH/MM3 (0-0.2) CBC Comment AUTO DIFF Differential Total Cells 100 Counted Neutrophils % (Manual) 89 % (16-70) Band Neutrophils % 6 % (0-6) Lymphocytes % 3 % (9-44) Eosinophils % 2 % (0-4) Neutrophils # (Manual) 32.6 TH/MM3 (1.8-7.7) Differential Comment FINAL DIFF MANUAL Dohle Bodies PRESENT (NONE SEEN) Platelet Estimate NORMAL (NORMAL) Platelet Morphology Comment NORMAL (NORMAL) Red Cell Morphology Comment NORMAL (NORMAL) Sodium Level 137 MEQ/L (136-145) Potassium Level 3.9 MEQ/L (3.5-5.1) Chloride Level 102 MEQ/L (98-107) Carbon Dioxide Level 26.1 MEQ/L (21.0-32.0) Anion Gap 9 MEQ/L (5-15) Blood Urea Nitrogen 6 MG/DL (7-18) Creatinine 0.72 MG/DL (0.60-1.30) Estimat Glomerular Filtration 116 ML/MIN Rate (>89) Random Glucose 126 MG/DL (74-106) Lactic Acid Level 2.1 mmol/L 1.5 mmol/L (0.4-2.0) (0.4-2.0) Calcium Level 8.4 MG/DL (8.5-10.1) Total Bilirubin 0.6 MG/DL (0.2-1.0) Aspartate Amino Transf 25 U/L (15-37) (AST/SGOT) Alanine Aminotransferase 31 U/L (12-78) (ALT/SGPT) Alkaline Phosphatase 157 U/L (45-117) Total Protein 6.3 GM/DL (6.4-8.2) Albumin 1.9 GM/DL (3.4-5.0) Urine Amorphous Sediment RARE Urine Hyaline Casts 1 /lpf (RARE) Test 07/24/16 07/24/16 07/24/16 07/24/16 02:45 05:45 07:10 18:20 Vancomycin Level Trough 8.2 MCG/ML (5.0-10.0) White Blood Count 28.7 TH/MM3 (4.0-11.0) Red Blood Count 2.27 MIL/MM3 (4.50-5.90) Hemoglobin 6.9 GM/DL 7.8 GM/DL (13.0-17.0) (13.0-17.0) Hematocrit 20.7 % 23.6 % (39.0-51.0) (39.0-51.0) Mean Corpuscular Volume 91.1 FL (80.0-100.0) Mean Corpuscular Hemoglobin 30.5 PG (27.0-34.0) Mean Corpuscular Hemoglobin 33.5 % Concent (32.0-36.0) Red Cell Distribution Width 15.5 % (11.6-17.2) Platelet Count 284 TH/MM3 (150-450) Mean Platelet Volume 7.2 FL (7.0-11.0) Neutrophils (%) (Auto) 85.3 % (16.0-70.0) Lymphocytes (%) (Auto) 6.4 % (9.0-44.0) Monocytes (%) (Auto) 4.7 % (0.0-8.0) Eosinophils (%) (Auto) 3.4 % (0.0-4.0) Basophils (%) (Auto) 0.2 % (0.0-2.0) Neutrophils # (Auto) 24.5 TH/MM3 (1.8-7.7) Lymphocytes # (Auto) 1.8 TH/MM3 (1.0-4.8) Monocytes # (Auto) 1.4 TH/MM3 (0-0.9) Eosinophils # (Auto) 1.0 TH/MM3 (0-0.4) Basophils # (Auto) 0.1 TH/MM3 (0-0.2) CBC Comment AUTO DIFF Differential Total Cells 100 Counted Neutrophils % (Manual) 64 % (16-70) Band Neutrophils % 28 % (0-6) Lymphocytes % 6 % (9-44) Monocytes % 1 % (0-8) Eosinophils % 1 % (0-4) Neutrophils # (Manual) 26.4 TH/MM3 (1.8-7.7) Differential Comment FINAL DIFF MANUAL Toxic Granulation 1+ (NORMAL) Toxic Vacuolation PRESENT (NONE SEEN) Platelet Estimate NORMAL (NORMAL) Platelet Morphology Comment NORMAL (NORMAL) Sodium Level 139 MEQ/L (136-145) Potassium Level 3.4 MEQ/L (3.5-5.1) Chloride Level 102 MEQ/L (98-107) Carbon Dioxide Level 27.7 MEQ/L (21.0-32.0) Anion Gap 9 MEQ/L (5-15) Blood Urea Nitrogen 6 MG/DL (7-18) Creatinine 0.62 MG/DL (0.60-1.30) Estimat Glomerular Filtration 138 ML/MIN Rate (>89) Random Glucose 90 MG/DL (74-106) Calcium Level 8.0 MG/DL (8.5-10.1) Phosphorus Level 2.6 MG/DL (2.5-4.9) Magnesium Level 1.5 MG/DL (1.5-2.5) Iron Level 14 MCG/DL (65-175) Total Iron Binding Capacity 106 MCG/DL (250-450) Percent Iron Saturation 13.2 % (20-50) Ferritin 1493 NG/ML (26-388) Albumin 1.6 GM/DL (3.4-5.0) Blood Type B POSITIVE Antibody Screen NEGATIVE Crossmatch Leukocyte-Reduced Red Blood Cells Blood Bank Comment Test 07/25/16 05:00 White Blood Count 30.1 TH/MM3 (4.0-11.0) Red Blood Count 2.51 MIL/MM3 (4.50-5.90) Hemoglobin 7.8 GM/DL (13.0-17.0) Hematocrit 22.6 % (39.0-51.0) Mean Corpuscular Volume 90.2 FL (80.0-100.0) Mean Corpuscular Hemoglobin 31.1 PG (27.0-34.0) Mean Corpuscular Hemoglobin 34.5 % Concent (32.0-36.0) Red Cell Distribution Width 15.5 % (11.6-17.2) Platelet Count 308 TH/MM3 (150-450) Mean Platelet Volume 7.4 FL (7.0-11.0) Neutrophils (%) (Auto) 88.1 % (16.0-70.0) Lymphocytes (%) (Auto) 4.7 % (9.0-44.0) Monocytes (%) (Auto) 3.9 % (0.0-8.0) Eosinophils (%) (Auto) 2.9 % (0.0-4.0) Basophils (%) (Auto) 0.4 % (0.0-2.0) Neutrophils # (Auto) 26.5 TH/MM3 (1.8-7.7) Lymphocytes # (Auto) 1.4 TH/MM3 (1.0-4.8) Monocytes # (Auto) 1.2 TH/MM3 (0-0.9) Eosinophils # (Auto) 0.9 TH/MM3 (0-0.4) Basophils # (Auto) 0.1 TH/MM3 (0-0.2) CBC Comment AUTO DIFF Differential Total Cells 100 Counted Neutrophils % (Manual) 64 % (16-70) Band Neutrophils % 27 % (0-6) Lymphocytes % 5 % (9-44) Monocytes % 4 % (0-8) Neutrophils # (Manual) 27.4 TH/MM3 (1.8-7.7) Differential Comment FINAL DIFF MANUAL Toxic Granulation 2+ (NORMAL) Toxic Vacuolation PRESENT (NONE SEEN) Platelet Estimate NORMAL (NORMAL) Platelet Morphology Comment NORMAL (NORMAL) Polychromasia 2.0 % (0.0-1.9) Sodium Level 140 MEQ/L (136-145) Potassium Level 3.4 MEQ/L (3.5-5.1) Chloride Level 103 MEQ/L (98-107) Carbon Dioxide Level 28.0 MEQ/L (21.0-32.0) Anion Gap 9 MEQ/L (5-15) Blood Urea Nitrogen 7 MG/DL (7-18) Creatinine 0.80 MG/DL (0.60-1.30) Estimat Glomerular Filtration 103 ML/MIN Rate (>89) Random Glucose 105 MG/DL (74-106) Calcium Level 8.2 MG/DL (8.5-10.1) Phosphorus Level 2.3 MG/DL (2.5-4.9) Magnesium Level 1.6 MG/DL (1.5-2.5) Albumin 1.7 GM/DL (3.4-5.0) . Result Diagram: 07/25/16 0500 07/25/16 0500 Microbiology Microbiology Date/Time Procedure Status Source Growth 07/23/16 10:30 Urine Culture - Final Complete Urine Clean Catch NO GROWTH IN 48 HOURS. 07/23/16 10:53 Aerobic Blood Culture - Preliminary Resulted Blood Peripheral NO GROWTH IN 2 DAYS 07/23/16 10:53 Anaerobic Blood Culture - Preliminary Resulted Blood Peripheral NO GROWTH IN 2 DAYS 07/23/16 10:58 Aerobic Blood Culture - Preliminary Resulted Blood Peripheral NO GROWTH IN 2 DAYS 07/23/16 10:58 Anaerobic Blood Culture - Preliminary Resulted Blood Peripheral NO GROWTH IN 2 DAYS Urine cx of 07/19/16 --> Flavimonas Oryzihabitans Blood cx of 07/19/16 --> Staph haemolyticus . Imaging Last Impressions Abdomen/Pelvis CT 07/24/16 0000 Signed Impressions: Service Date/Time: Monday, July 25, 2016 00:55 - CONCLUSION: 1. Interval development of extensive metastases. In addition to the bulky mass lesions in the urinary bladder bed, there are now large omental and mesenteric masses with central necrosis, retroperitoneal and anterior abdominal wall metastatic deposits with extensive metastasis to the liver. 2. Interval placement of bilateral nephrostomy tubes with decompression of the previously hydronephrotic kidneys. Preston Ewing MD Nephrostomy 07/22/16 0000 Signed Impressions: Service Date/Time: Friday, July 22, 2016 09:43 - CONCLUSION: Uncomplicated right nephrostomy tube placement as above. The collecting system is grossly dilated. The urine was turbid and therefore sent for microbiological evaluation. Several days of decompression can be performed and then attempts at placement of ureteral stent with extension through the ileal conduit stoma. I spoke with Dr. Lee concerning this. Jesus Perez Jr., MD Renal Scan w/Medication NM 07/20/16 0000 Signed Impressions: Service Date/Time: Wednesday, July 20, 2016 15:34 - CONCLUSION: High grade obstruction on the right with partial obstruction on the left. Abdullahi Dos Santos MD Chest X-Ray 07/19/16 8370 Signed Impressions: Service Date/Time: Tuesday, July 19, 2016 15:14 - CONCLUSION: 1. The [id number] in good position. 2. The lungs are clear. Salvatore Tolbert MD . Procedures * Bilateral nephrostomy tube placement . Assessment and Plan Disease Oriented Problem List: (1) Invasive carcinoma of urinary bladder Comment: Imaging shows progression of disease in spite of aggressive treatment. Mets now apparent in pelvic lymph nodes, lungs, liver, and possible abdominal carcinomatosis. . (2) Bilateral hydronephrosis (3) Sepsis Comment: Only Positive blood cx to date is 07/19/16 showing Staph haemolyticus. . (4) Urinary tract infection Comment: Urine cx initially negative, but 07/19 cx showed Flavimonas oryzihabitans. . (5) Anemia due to blood loss (6) Hematuria (7) Intractable nausea and vomiting Comment: Improving with odansetron and with treatment of infection. . 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 . (9) Hypoalbuminemia Symptom Scale: (1) Pain 0-10 Scale: 2 Comment: The patient's pain is primarily across his low back and across his lower abdomen. Pain reaches a #8 in intensity on most days. His current medication brings pain levels down at best to a #5. The pain is worse with movement. He describes the pain as sharp. It is nonradiating. Straining at stool also seems to exacerbate the pain. . (2) Anxiety 0-10 Scale: 0 Comment: Long history of anxiety pre-dates the cancer diagnosis but the progression of disease, ongoing need for hospitalizations, increasing dependence , etc have exacerbated the anxiety. . (3) Nausea & vomiting 0-10 Scale: 0 Comment: Improving with ondansetron and treatment of underlying infection. . Pertinent Non-Medical Issues Psychosocial: lives with his mother. Spiritual: [employer]ology yessica. Legal: Patient is currently capacitated to make his own decisions. Patient completed living will and HCS. Named his mother, Laurie Kee as designated healthcare surrogate should he lose capacity. Ethical issues impacting care: No known concerns at this time. . Important Contacts * Laurie Henderson (mother and health care surrogate) -- [phone] . Prognosis Mr. Henderson has widely metastatic (pelvic lymph, lungs, liver, abdominal carcinomatosis) bladder cancer that has progressed in spite of aggressive care. His treatment course has been challenging due to recurrent hematuria and infection. Treatment options would all be palliative going forward. Dr. Lee has offered the possibility of a checkpoint inhibitor. The patient understands this might have a 20-30% chance of slowing progression and improving quality of his life. Mr. Henderson clearly understands there is no cure at this point. While he is hoping to try the new therapy and hoping he responds , he is quite clear that the does not want treatments that will just prolong an uncomfortable dying process. He is familiar with hospice which took care of his father and will want to transition to hospice care if he does not tolerate the offered treatment or disease continues to progress in spite of the new therapy. . Code Status: No Code Plan * Decision making: Patient is currently capacitated to make his own health care decisions. Should he become incapacitated, he has designated his mother Laurie Hendersonas his health care surrogate. * NO CODE per patient wishes. [place] DNR given to patient. * Goals of medical treatment: Patient desires aggressive care short of resuscitation in hopes of benefiting from the remaining therapy that Dr. Lee has recommended. * Pain: Fentanyl patch 100mcg/hr DCd on 07/22/16. Methadone 5 mg q 12 hours DC 'd on 07/24/16 by hospitalist. Now on 0xycodone extended release at 30 mg q 12 ATC. Wait to see need for PRN hydromorphone on this does of long acting opiate. * Anxiety: Improving with addition of Lorazepam 0.5 mg every 8 hours ATC. Citalopram was recommended to help anxiety while minimizing sedation. Patient refused it. * Nausea/vomiting; Improved. * I have left a phone message with radiologist to compare last night's CT with the CT of 06/23/16 as well. Though the reading showed no evidence of abscess ( which is why it was ordered) , evidence of significant increase in metastatic disease over a two week period would be an ominous sign. * Given low albumin levels, may want to consider nutrition consult. * Palliative care will continue to follow to assist with symptom management and to further clarify goals of medical treatment as the clinical course evolves. . Attestation To help prompt me to consider important information that might be impacting today's encounter and assessment, information from prior notes written by myself or my colleagues may have been "brought forward" into today's note. My signature on this note, however, is an attestation that I personally performed the exam, history, and/or decision-making noted today, and, unless otherwise indicated, the interactions with patient, family, and staff as well as the review of records all occurred today. I also attest that the listed assessment and stated plan reflect my best clinical judgment today based on the combination of historical information, prior notes, and today's exam/ interactions. When time spent is documented, it refers only to time spent today by the signer, or if indicated, combined time spent today by collaborating physician/nurse practitioner. . Billy Sweet MD Jul 25, 2016 15:33
[2016-07-25] MEDS ORDERED: PHARMACY ORDERED LAB XX ONE (16:45)
[2016-07-25] MEDS ORDERED: VANCOMYCIN INJ 1,250 MG in SODIUM CHLOR 0.9% 250 ML INJ 250 ML IV SCH ×2 (17:00→21:00)
--- NOTE | 2016-07-25 18:29 | HHI.PR ---
Addendum to Inpatient Note Additional Information pt CT showed multiple mets including necrotic WBC up to 30 K Urine clx remian negative cont luh henning Alexandra A. MD Jul 25, 2016 18:29
[2016-07-25] MEDS: oxyCODONE HCL 10 MG CONTROLLED RELEASE TAB PO SCH (21:36)
[2016-07-25] MEDS: DOCUSATE SODIUM 50 MG/SENNA 8.6 MG TAB PO SCH (22:06)
--- NOTE | 2016-07-25 23:09 | HHI.PR ---
Subjective Remarks Patient seen today around 3 PM. He reports that OxyContin has improved his pain. He would like to get up, but feels like he cannot move because bilateral nephrostomies. He denies any chest pain or shortness of breath. Discussed with Dr. Sweet. CT abdomen does show worsening of metastatic disease, however Dr. Henderson will verify if this is changed from most recent CT. Also discussed with Dr. James of infectious disease. Necrotic metastasis likely cause fevers. We'll continue antibiotics for now while we rule out infection. Adjusted pain medications Objective Vital Signs Date Time Temp Pulse Resp B/P Pulse Ox O2 Delivery O2 Flow Rate FiO2 07/25/16 20:00 99.8 109 18 132/64 98 07/25/16 16:00 98.8 95 20 117/59 95 07/25/16 12:00 102.7 108 20 135/68 95 07/25/16 08:56 Room Air 07/25/16 08:00 100.0 94 20 116/58 96 07/25/16 04:00 99.1 112 18 131/58 94 07/25/16 04:00 99.1 112 18 131/58 94 07/25/16 01:07 98.4 55 24 131/60 97 07/25/16 00:00 98.4 104 24 131/60 97 I/O 07/24/16 07/24/16 07/24/16 07/25/16 07/25/16 07/25/16 07:00 15:00 23:00 07:00 15:00 23:00 Intake Total 1321 ml 720 ml 688 ml 916 ml 240 ml 240 ml Output Total 1075 ml 800 ml 900 ml 850 ml 2005 ml Balance 246 ml -80 ml -212 ml 66 ml -1765 ml 240 ml Intake Oral 650 ml 720 ml 240 ml 240 ml IV Total 671 ml 688 ml 916 ml Output Urine Total 325 ml 800 ml 0 ml 850 ml 2005 ml Drainage Total 750 ml 900 ml # Voids 0 0 # Bowel Movements 0 0 0 0 Result Diagram: 07/25/16 0500 07/25/16 0500 Objective Remarks GENERAL: Sitting up in bed. Appears comfortable. Alert. Oriented 3. SKIN: Warm and dry. HEAD: Normocephalic. EYES: No scleral icterus. No injection or drainage. NECK: Supple, trachea midline. No JVD. CARDIOVASCULAR: Regular rate and rhythm without murmurs, gallops, or rubs. RESPIRATORY: Breath sounds equal bilaterally. No accessory muscle use. GASTROINTESTINAL: Abdomen soft, nondistended. Ileal conduit right lower quadrant. No surrounding erythema. Abdomen tender to moderate palpation. Diffusely. slightly improved from yesterday. Clear urine. MUSCULOSKELETAL: No cyanosis, or edema. BACK: Nontender without obvious deformity. No CVA tenderness. A/P Assessment and Plan 50-year-old male with metastatic bladder cancer with bilateral ureteral obstruction status post bilateral placement of percutaneous nephrostomy tubes placed on 07/22/16. Antibiotics Zosyn 07/23ongoing Vancomycin07/19 - ongoing Cefepime. Discontinued. Microbiology 07/23 urine culture from right nephrostomy no growth to date 07/23 urinalysis from the left nephrostomy noninfectious appearing. 07/23. Blood cultures pending. No growth to date 07/19 urine culturepansensitive Flavimonas. 07/19 blood cultures. 1 of staph hemolyticus Last fever: 07/24. 102.9F 07/25/16 - -Discussed with Dr. Sweet. CT abdomen does show worsening of metastatic disease, however Dr. Henderson will verify if this is changed from most recent CT. -Also discussed with Dr. James of infectious disease. Necrotic metastasis likely cause fevers. We'll continue antibiotics for now while we rule out infection. Cancer pain- Adjusted pain medicationsincrease OxyContin to 30 mg twice daily, switch Dilaudid 2 by mouth, with IV for breakthrough. //Severe Sepsis -patient continues with tachycardia, fevers, leukocytosis, complicated UTI. -07/23. Recurrent fever 103. Repeat blood, urinalysis from bilateral nephrostomy tubes. Fluids. Switch to Zosyn. There is a possibility that fevers are malignancy related, however we'll need to treat any infection first. -07/24. Discussed with infectious disease. CT abdomen ordered and pending. Appreciate assistance. Continue antibiotics as above. Follow-up cultures as above. -07/25. CT abdomen with necrotic metastasis. This could be causing fevers. We' ll continue antibiotics as above. Appreciate ID assistance. //Complicated urinary tract infection Patient with history of invasive bladder cancer, ileal conduit, recent CT scan does indicate hydronephrosis, hydroureters, status post bilateral nephrostomies on 07/22. Flavminonas pansensitive. -Due to recurrent fevers on 07/23. Start on Zosyn. Repeat cultures pending. As above. -07/24. Continued fevers. Continue antibiotics as above. Infectious disease following. Follow-up cultures. -07/25. Continued fevers. Discussed with infectious disease. Continue antibiotics as above. //Leukocytosis Secondary to infection Continue monitor. As above. //Invasive bladder cancer with hydronephrosis, hydroureters Bilateral hydronephrosis as below. Steel Heater/oncologist has evaluated the patient and recommending palliative chemotherapy versus checkpoint inhibitor. Palliative care physician following patient for better pain control and management on methadone -he states that this pain regimen is adequate -Pain reasonably well controlled. Continue to monitor. -07/24. Will add oxyContin 20 mg twice daily, discontinue methadone. We'll increase OxyContin as necessary. -07/25. Increase OxyContin to 30 mg twice daily. transition Dilaudid to by mouth. //Acute on chronic anemia. -Low iron, low TIBC, high ferritin consistent with anemia of inflammation. -Hemoglobin down to 6.9 on 07/24 - likely dilutional secondary to fluid boluses. -No signs of bleeding. 07/24. Transfusion 1 unit. -hemoglobin stable.Continue to monitor. //Bilateral hydronephrosis. -Renal scan confirmed high-grade obstruction on the right, partial obstruction of the left -Underwent bilateral. Urology placed bilateral nephrostomy tubes 07/22. -Patient will need bilateral double J stents placed by IR this coming week. -Urology following. Appreciate assistance. //Hypokalemia. Acute. Mild. Replace as necessary. Monitor. //DVT prophylaxis Sequential compression devices, anticoagulation on hold due to anemia. DO NOT RESUSCITATE CODE STATUS. Discharge Planning Ongoing sepsis versus fevers from malignancy.continues on IV antibiotics. -Titrating pain medications. -week. PT/OT consult. Planning for double-J stents to be placed this coming week by IR. Ajay Aceves MD Jul 25, 2016 23:09
[2016-07-26] VITALS: BP 125/59; PULSE 123; RESP 18; TEMP 99.7; O2SAT 94
[2016-07-26] MEDS: HYDROmorphone HCL PF 1 MG/ML VIAL IV PUSH PRN (00:06)
[2016-07-26] MEDS: PIPERACIL-TAZO 3.375 GM PREMIX 50 ML IV SCH ×4 (01:58→20:56)
[2016-07-26] MEDS: HYDROmorphone HCL 4 MG TAB PO PRN (01:59)
[2016-07-26] MEDS: SODIUM CHLOR 0.9% 1000 ML INJ 1,000 ML IV SCH ×4 (02:00→20:59)
[2016-07-26 04:00] VITALS: BP 113/64; PULSE 98; RESP 18; TEMP 98.5; O2SAT 96
[2016-07-26] MEDS: LORazepam 0.5 MG TAB PO SCH ×3 (06:05→20:43)
[2016-07-26] MEDS: VANCOMYCIN 1,000 MG/NS 250 ML IV SCH ×6 (06:06→20:45)
[2016-07-26] MEDS: HYDROmorphone HCL 2 MG TAB PO PRN ×4 (06:39→22:16)
[2016-07-26 06:50] LABS: AUTOMATED NEUTROPHIL # 23.5 TH/MM3 (1.8-7.7); BASOPHIL # 0.1 TH/MM3 (0-0.2); BASOPHIL % 0.5 % (0.0-2.0); EOSINOPHIL # 1.1 TH/MM3 (0-0.4); EOSINOPHIL % 3.9 % (0.0-4.0); HEMO FLAGS DIFF FINAL; LYMPH % 6.2 % (9.0-44.0); LYMPHOCYTE # 1.7 TH/MM3 (1.0-4.8); MEAN CELL VOLUME 91.5 FL (80.0-100.0); MEAN CORPUSCULAR HEMOGLOBIN 30.2 PG (27.0-34.0); MONO % 4.3 % (0.0-8.0); NEUT % 85.1 % (16.0-70.0); PLATELET COUNT 268 TH/MM3 (150-450); RED CELL DISTRIBUTION WIDTH 15.4 % (11.6-17.2); WHITE BLOOD COUNT 27.6 TH/MM3 (4.0-11.0)
[2016-07-26 07:03] LABS: MAGNESIUM 1.9 MG/DL (1.5-2.5); POTASSIUM 3.4 MEQ/L (3.5-5.1)
[2016-07-26 08:00] VITALS: BP 118/58; PULSE 89; RESP 18; TEMP 98.4; O2SAT 97
[2016-07-26] MEDS: DOCUSATE SODIUM 50 MG/SENNA 8.6 MG TAB PO SCH ×2 (08:35→20:42)
[2016-07-26] MEDS: SODIUM CHLORIDE 0.9% FLUSH 5 ML FLUSH FLUSH SCH ×2 (08:35→20:46)
[2016-07-26] MEDS: oxyCODONE HCL 10 MG CONTROLLED RELEASE TAB PO SCH ×2 (08:36→20:42)
--- NOTE | 2016-07-26 08:51 | HHI.PR ---
Subjective Remarks Patient seen and examined. Pain is better controlled. Fever noted. Objective Vital Signs Vital Signs Date Time Temp Pulse Resp B/P Pulse Ox O2 Delivery O2 Flow Rate FiO2 07/26/16 04:00 98.5 98 18 113/64 96 07/26/16 00:00 99.7 123 18 125/59 94 07/25/16 21:36 Room Air 07/25/16 20:00 99.8 109 18 132/64 98 07/25/16 16:00 98.8 95 20 117/59 95 07/25/16 12:00 102.7 108 20 135/68 95 07/25/16 08:56 Room Air I/O 07/25/16 07/25/16 07/25/16 07/26/16 07/26/16 07/26/16 07:00 15:00 23:00 07:00 15:00 23:00 Intake Total 916 ml 240 ml 1744 ml 1377 ml Output Total 850 ml 2005 ml 750 ml Balance 66 ml -1765 ml 1744 ml 627 ml Intake Oral 240 ml 240 ml 480 ml IV Total 916 ml 1504 ml 897 ml Output Urine Total 850 ml 2005 ml Drainage Total 750 ml # Voids 0 # Bowel Movements 0 0 Result Diagram: 07/26/16 0615 07/26/16 0615 Imaging Last 48 hours Impressions Renal Scan w/Medication NM 07/20/16 0000 Signed Impressions: Service Date/Time: Wednesday, July 20, 2016 15:34 - CONCLUSION: High grade obstruction on the right with partial obstruction on the left. Abdullahi Dos Santos MD Chest X-Ray 07/19/16 1457 Signed Impressions: Service Date/Time: Tuesday, July 19, 2016 15:14 - CONCLUSION: 1. The [id number] in good position. 2. The lungs are clear. Salvatore Tolbert MD Objective Remarks Abd:soft,nt,nd B/L PCNT's in place and draining well. 07/25/16 Abd:soft,nt,nd B/L PCNT's in place and draining well. 07/27/15 Abdomen soft nontender nondistended Bilateral percutaneous nephrostomy tubes draining clear urine Assessment and Plan Problem List: (1) Urinary tract infection ICD Code: N39.0 Status: Acute (2) Bilateral hydronephrosis ICD Code: N13.30 Status: Chronic (3) Invasive carcinoma of urinary bladder ICD Code: C67.9 Status: Chronic Assessment and Plan -Plan for Bilateral nephrostomy tubes today -Will discuss with and defer further care as patient is known to him -Please call with questions 07/22/16 50 y.o male with metastatic bladder cancer with b/l ureteral obstruction s/p b/ l placement of PCNT's Check cultures Continue ABX Will need internalization with b/l JJ stents by IR next week. 07/25/16 50 y.o male with metastatic bladder cancer with b/l ureteral obstruction s/p b/ l placement of PCNT's CT shows worsen evidence of metastatics Maintain b/l PCNT's for now. May not change to internalized stents as stents will fail with increase in bulky disease. Continue ABX Pain control 07/26/16 50-year-old male with metastatic bladder cancer with bilateral ureteral obstruction status post placement of bilateral percutaneous nephrostomy tubes with fever Continue antibiotic coverage per ID Fever may also be a result due to tumor expansion based on recent CT findings. Eulogio Lee DO Jul 26, 2016 08:51
[2016-07-26] MEDS ORDERED: POTASSIUM CHLORIDE 10 MEQ CONTROLLED RELEASE TAB PO ONE (10:30)
[2016-07-26] MEDS: ONDANSETRON HCL 4 MG/2 ML VIAL IV PUSH PRN ×2 (11:09→20:55)
[2016-07-26 12:00] VITALS: BP 121/68; PULSE 122; RESP 18; TEMP 102.6; O2SAT 95
[2016-07-26] MEDS: ACETAMINOPHEN 325 MG TAB PO PRN (12:03)
[2016-07-26 16:00] VITALS: BP 102/55; PULSE 84; RESP 18; TEMP 98.5; O2SAT 96
--- NOTE | 2016-07-26 16:41 | HHI.HCPN ---
Call to CT scan department to request CT abdomen/pelvis completed 07/25/[address] abdomen/pelvis done on 07/13/16 to evaluate whether or not there has been disease (cancer) progression since that time. It appears to have been compared to prior CTs done in May. Spoke with Zita, radiologist will add an addendum to prior report. Palliative care will continue to follow. . RADHA CASILLAS Jul 26, 2016 16:40
[2016-07-26 20:00] VITALS: BP 114/60; PULSE 94; RESP 18; TEMP 97.7; O2SAT 96
--- NOTE | 2016-07-26 23:45 | HHI.IDPN ---
Subjective Subjective Remarks delayed entry - pt was seen earlier today cont to have very high fevers all clx remian negative Antibiotics zosyn vancomycin Allergies: Coded Allergies: No Known Allergies (Unverified , 07/19/16) Objective . Vital Signs Date Time Temp Pulse Resp B/P Pulse Ox O2 Delivery O2 Flow Rate FiO2 07/26/16 21:15 Room Air 07/26/16 20:00 97.7 94 18 114/60 96 07/26/16 16:00 98.5 84 18 102/55 96 07/26/16 12:00 102.6 122 18 121/68 95 07/26/16 08:39 Room Air 07/26/16 08:00 98.4 89 18 118/58 97 07/26/16 04:00 98.5 98 18 113/64 96 07/26/16 00:00 99.7 123 18 125/59 94 07/25/16 07/25/16 07/26/16 14:59 22:59 06:59 Intake Total 240 ml 1744 ml 1377 ml Output Total 2005 ml 750 ml Balance -1765 ml 1744 ml 627 ml Intake Oral 240 ml 240 ml 480 ml IV Total 1504 ml 897 ml Output Urine Total 2005 ml Drainage Total 750 ml # Voids 0 # Bowel Movements 0 0 . Laboratory Tests Test 07/25/16 07/26/16 05:00 06:15 White Blood Count 30.1 TH/MM3 27.6 TH/MM3 Red Blood Count 2.51 MIL/MM3 2.40 MIL/MM3 Hemoglobin 7.8 GM/DL 7.3 GM/DL Hematocrit 22.6 % 22.0 % Mean Corpuscular Volume 90.2 FL 91.5 FL Mean Corpuscular Hemoglobin 31.1 PG 30.2 PG Mean Corpuscular Hemoglobin 34.5 % 33.0 % Concent Red Cell Distribution Width 15.5 % 15.4 % Platelet Count 308 TH/MM3 268 TH/MM3 Mean Platelet Volume 7.4 FL 7.4 FL Neutrophils (%) (Auto) 88.1 % 85.1 % Lymphocytes (%) (Auto) 4.7 % 6.2 % Monocytes (%) (Auto) 3.9 % 4.3 % Eosinophils (%) (Auto) 2.9 % 3.9 % Basophils (%) (Auto) 0.4 % 0.5 % Neutrophils # (Auto) 26.5 TH/MM3 23.5 TH/MM3 Lymphocytes # (Auto) 1.4 TH/MM3 1.7 TH/MM3 Monocytes # (Auto) 1.2 TH/MM3 1.2 TH/MM3 Eosinophils # (Auto) 0.9 TH/MM3 1.1 TH/MM3 Basophils # (Auto) 0.1 TH/MM3 0.1 TH/MM3 CBC Comment AUTO DIFF DIFF FINAL Differential Total Cells 100 Counted Neutrophils % (Manual) 64 % Band Neutrophils % 27 % Lymphocytes % 5 % Monocytes % 4 % Neutrophils # (Manual) 27.4 TH/MM3 Differential Comment FINAL DIFF MANUAL Toxic Granulation 2+ Toxic Vacuolation PRESENT Platelet Estimate NORMAL Platelet Morphology Comment NORMAL Polychromasia 2.0 % Laboratory Tests Test 07/25/16 07/26/16 05:00 06:15 Sodium Level 140 MEQ/L 140 MEQ/L Potassium Level 3.4 MEQ/L 3.4 MEQ/L Chloride Level 103 MEQ/L 102 MEQ/L Carbon Dioxide Level 28.0 MEQ/L 30.0 MEQ/L Anion Gap 9 MEQ/L 8 MEQ/L Blood Urea Nitrogen 7 MG/DL 7 MG/DL Creatinine 0.80 MG/DL 0.87 MG/DL Estimat Glomerular Filtration 103 ML/MIN 93 ML/MIN Rate Random Glucose 105 MG/DL 96 MG/DL Calcium Level 8.2 MG/DL 8.4 MG/DL Phosphorus Level 2.3 MG/DL 3.7 MG/DL Magnesium Level 1.6 MG/DL 1.9 MG/DL Albumin 1.7 GM/DL 1.6 GM/DL Imaging Last Impressions Abdomen/Pelvis CT 07/24/16 0000 Signed Impressions: Service Date/Time: Monday, July 25, 2016 00:55 - CONCLUSION: 1. Interval development of extensive metastases. In addition to the bulky mass lesions in the urinary bladder bed, there are now large omental and mesenteric masses with central necrosis, retroperitoneal and anterior abdominal wall metastatic deposits with extensive metastasis to the liver. 2. Interval placement of bilateral nephrostomy tubes with decompression of the previously hydronephrotic kidneys. Preston Ewing MD ADDENDUM: COMPARISON: CT ABDOMEN & PELVIS W & W/O CONTRAST, July 13, 2016, 13:43. It has been brought to our attention that a more recent comparison study is available. The liver lesions are stable in number but they have increased in size. In particular a anterior right lobe liver lesion currently measures 2.2 x 1.9 cm compared to 1.8 x 1.4 cm previously. Also, there are 2 lesions near the dome that measure approximately 13 mm each that were previously barely visible measuring approximately 8 mm. No new liver lesion is identified. There is a extrahepatic mass abutting the right lobe of the liver that currently measures 7.8 x 4.1 cm compared to 5.6 x 3.4 cm previously. Throughout the abdomen and pelvis there are multiple peritoneal based masses that have also increased in size. In particular the mass in the right lower quadrant in the iliac fossa measures 9.5 x 6.3 cm compared to 8.0 x 5.6 cm previously. Another index lesion in the left mid abdomen anteriorly measures 7.3 x 7.1 cm compared to 4.2 x 3.2 cm previously. Multiple pelvic soft tissue masses are present and these have also increased in size. In the left inferior pelvis a mass currently measures 7.0 x 5.4 cm compared to 4.6 x 4.9 cm previously. Please see above for description of the remaining findings. IMPRESSION: Comparison was made to the more recent prior examination dated 07/13/2016. As described above, the multiple liver lesions and solid masses within the abdomen and pelvis have increased in size. Index measurements are given above. Findings are indicative of interval progression of disease. Ochoa Roberson MD Nephrostomy 07/22/16 0000 Signed Impressions: Service Date/Time: Friday, July 22, 2016 09:43 - CONCLUSION: Uncomplicated right nephrostomy tube placement as above. The collecting system is grossly dilated. The urine was turbid and therefore sent for microbiological evaluation. Several days of decompression can be performed and then attempts at placement of ureteral stent with extension through the ileal conduit stoma. I spoke with Dr. Lee concerning this. Jesus Perez Jr., MD Renal Scan w/Medication NM 07/20/16 0000 Signed Impressions: Service Date/Time: Wednesday, July 20, 2016 15:34 - CONCLUSION: High grade obstruction on the right with partial obstruction on the left. Abdullahi Dos Santos MD Chest X-Ray 07/19/16 1457 Signed Impressions: Service Date/Time: Tuesday, July 19, 2016 15:14 - CONCLUSION: 1. The [id number] in good position. 2. The lungs are clear. Salvatore Tolbert MD Physical Exam CONSTITUTIONAL/GENERAL: This is an adequately nourished patient, in no apparent distress. SKIN: No jaundice, rashes, or lesions. Skin temperature appropriate. + diaphoretic. EYES: Pupils equal and round and reactive. Extraocular motions intact. No scleral icterus. No injection or drainage. Fundi not examined. ENT: oral mucosae moist CARDIOVASCULAR: Regular rate and rhythm without murmurs, gallops, or rubs. No JVD. Peripheral pulses symmetric. RESPIRATORY/CHEST: Symmetric, unlabored respirations. Clear to auscultation. Breath sounds equal bilaterally. No wheezes, rales, or rhonchi. GASTROINTESTINAL: Abdomen soft, non-tender, nondistended. No hepato-splenomegaly , or palpable masses. No guarding. Bowel sounds present. GENITOURINARY: Ileostomi in RLQ pink draining faily clear urine b/l nephrostomies in place with very cloudy dark urine. MUSCULOSKELETAL: Extremities without clubbing, cyanosis, or edema. NEUROLOGICAL: Awake and alert. Motor and sensory grossly within normal limits. Follows commands. Normal speech. Moves all extremities. Assessment & Plan Remarks Fever with no e/o infection sourse ? tumor fever - Metastatic bladder CA - bulky mass lesions in the urinary bladder bed, there are now large omental and mesenteric masses with central necrosis Obstructive uropathy sp bl nephrostomies Presented with UTI, sepsis - on appropiate abx - repeat urine clx neg @ 24 hrs - persistent fever Low grade Staph haemolyticus bactermia - can be 2/2 UTI cont current abx: Ro Sauer Dr, MD Jul 26, 2016 23:45
--- NOTE | 2016-07-26 23:59 | HHI.PR ---
Subjective Remarks patient seen around noon. He says that pain is much improved on current pain regimen. Discussed with nursing. Will obtain bilateral bags for urostomy's. Objective Vital Signs Date Time Temp Pulse Resp B/P Pulse Ox O2 Delivery O2 Flow Rate FiO2 07/26/16 21:15 Room Air 07/26/16 20:00 97.7 94 18 114/60 96 07/26/16 16:00 98.5 84 18 102/55 96 07/26/16 12:00 102.6 122 18 121/68 95 07/26/16 08:39 Room Air 07/26/16 08:00 98.4 89 18 118/58 97 07/26/16 04:00 98.5 98 18 113/64 96 07/26/16 00:00 99.7 123 18 125/59 94 I/O 07/25/16 07/25/16 07/25/16 07/26/16 07/26/16 07/26/16 07:00 15:00 23:00 07:00 15:00 23:00 Intake Total 916 ml 240 ml 1744 ml 1377 ml 1330 ml 480 ml Output Total 850 ml 2005 ml 750 ml 400 ml 300 ml Balance 66 ml -1765 ml 1744 ml 627 ml 930 ml 180 ml Intake Oral 240 ml 240 ml 480 ml 360 ml 480 ml IV Total 916 ml 1504 ml 897 ml 970 ml Output Urine Total 850 ml 2005 ml 400 ml 150 ml Emesis 150 ml Drainage Total 750 ml # Voids 0 # Bowel Movements 0 0 0 Result Diagram: 07/26/1661407/26/16 0615 Objective Remarks GENERAL: Sitting up in bed. Appears comfortable. Alert. Oriented 3. SKIN: Warm and dry. HEAD: Normocephalic. EYES: No scleral icterus. No injection or drainage. NECK: Supple, trachea midline. No JVD. CARDIOVASCULAR: Regular rate and rhythm without murmurs, gallops, or rubs. RESPIRATORY: Breath sounds equal bilaterally. No accessory muscle use. GASTROINTESTINAL: Abdomen soft, nondistended. Ileal conduit right lower quadrant. No surrounding erythema. Abdomen tender to moderate palpation. improved. Diffusely. Clear urine. MUSCULOSKELETAL: No cyanosis, or edema. BACK: Nontender without obvious deformity. No CVA tenderness. A/P Assessment and Plan 50-year-old male with metastatic bladder cancer with bilateral ureteral obstruction status post bilateral placement of percutaneous nephrostomy tubes placed on 07/22/16. Antibiotics Zosyn 07/23ongoing Vancomycin07/19 - ongoing Cefepime. Discontinued. Microbiology 07/23 urine culture from right nephrostomy no growth to date 07/23 urinalysis from the left nephrostomy noninfectious appearing. 07/23. Blood cultures pending. No growth to date 07/19 urine culturepansensitive Flavimonas. 07/19 blood cultures. 1 of staph hemolyticus Last fever: 07/26. 102.6F 07/26/16 - -need fevers. Continue antibiotics. Discussed leg bags with nursing. We'll try to obtain. -Planning for double-J stents replaced. //Severe Sepsis -patient continues with tachycardia, fevers, leukocytosis, complicated UTI. -07/23. Recurrent fever 103. Repeat blood, urinalysis from bilateral nephrostomy tubes. Fluids. Switch to Zosyn. There is a possibility that fevers are malignancy related, however we'll need to treat any infection first. -07/24. Discussed with infectious disease. CT abdomen ordered and pending. Appreciate assistance. Continue antibiotics as above. Follow-up cultures as above. -07/25. CT abdomen with necrotic metastasis. This could be causing fevers. We' ll continue antibiotics as above. Appreciate ID assistance. //Complicated urinary tract infection Patient with history of invasive bladder cancer, ileal conduit, recent CT scan does indicate hydronephrosis, hydroureters, status post bilateral nephrostomies on 07/22. Flavminonas pansensitive. -Due to recurrent fevers on 07/23. Start on Zosyn. Repeat cultures pending. As above. -07/24. Continued fevers. Continue antibiotics as above. Infectious disease following. Follow-up cultures. -07/25. Continued fevers. Discussed with infectious disease. Continue antibiotics as above. -07/26. Again with continued fevers. Continue antibiotics. //Leukocytosis Secondary to infection Continue monitor. As above. //Invasive bladder cancer with hydronephrosis, hydroureters Bilateral hydronephrosis as below. Donor Services Team Leader/oncologist has evaluated the patient and recommending palliative chemotherapy versus checkpoint inhibitor. Palliative care physician following patient for better pain control and management on methadone -he states that this pain regimen is adequate -Pain reasonably well controlled. Continue to monitor. -07/24. Will add oxyContin 20 mg twice daily, discontinue methadone. We'll increase OxyContin as necessary. -07/25. Increase OxyContin to 30 mg twice daily. transition Dilaudid to by mouth. -07/26. Pain much improved. Continue to monitor. //Acute on chronic anemia. -Low iron, low TIBC, high ferritin consistent with anemia of inflammation. -Hemoglobin down to 6.9 on 07/24 - likely dilutional secondary to fluid boluses. -No signs of bleeding. 07/24. Transfusion 1 unit. -hemoglobin stable.Continue to monitor. //Bilateral hydronephrosis. -Renal scan confirmed high-grade obstruction on the right, partial obstruction of the left -Underwent bilateral. Urology placed bilateral nephrostomy tubes 07/22. -Patient will need bilateral double J stents placed by IR this coming week. -Urology following. Appreciate assistance. //Hypokalemia. Acute. Mild. Replace as necessary. Monitor. //DVT prophylaxis Sequential compression devices, anticoagulation on hold due to anemia. DO NOT RESUSCITATE CODE STATUS. Discharge Planning Ongoing sepsis versus fevers from malignancy.continues on IV antibiotics. -Titrating pain medications. -week. PT/OT consult. Planning for double-J stents to be placed this coming week by IR. Ajay Aceves MD Jul 26, 2016 23:59 Ajay Aceves MD Jul 26, 2016 23:59
[2016-07-27] VITALS (9 sets, daily range): BP systolic 105–147; BP diastolic 56–72; PULSE 90–123; RESP 17–21; TEMP 98–103; O2SAT 91–98
[2016-07-27] MEDS: PIPERACIL-TAZO 3.375 GM PREMIX 50 ML IV SCH ×4 (00:59→22:26)
[2016-07-27] MEDS: HYDROmorphone HCL 4 MG TAB PO PRN (02:20)
[2016-07-27] MEDS ORDERED: PHARMACY ORDERED LAB XX ONE (05:45)
[2016-07-27] MEDS: LORazepam 0.5 MG TAB PO SCH ×3 (06:02→22:11)
[2016-07-27] MEDS: VANCOMYCIN 1,000 MG/NS 250 ML IV SCH ×6 (06:03→22:22)
[2016-07-27] MEDS: ONDANSETRON ODT 4 MG TAB PO SCH (08:23)
[2016-07-27] MEDS: SODIUM CHLORIDE 0.9% FLUSH 5 ML FLUSH FLUSH SCH ×2 (08:24→21:00)
[2016-07-27] MEDS: DOCUSATE SODIUM 50 MG/SENNA 8.6 MG TAB PO SCH ×2 (08:25→22:11)
[2016-07-27] MEDS: oxyCODONE HCL 10 MG CONTROLLED RELEASE TAB PO SCH ×2 (08:25→22:10)
--- NOTE | 2016-07-27 08:44 | HHI.PR ---
Subjective Remarks Pt seen and examined. Feels OK. Pain controlled. Objective Vital Signs Vital Signs Date Time Temp Pulse Resp B/P Pulse Ox O2 Delivery O2 Flow Rate FiO2 07/27/16 04:00 98.0 113 18 122/56 93 07/27/16 00:00 99.8 107 18 127/60 97 07/26/16 21:15 Room Air 07/26/16 20:00 97.7 94 18 114/60 96 07/26/16 16:00 98.5 84 18 102/55 96 07/26/16 12:00 102.6 122 18 121/68 95 I/O 07/26/16 07/26/16 07/26/16 07/27/16 07/27/16 07/27/16 07:00 15:00 23:00 07:00 15:00 23:00 Intake Total 1377 ml 1330 ml 480 ml 0 ml Output Total 750 ml 400 ml 800 ml Balance 627 ml 930 ml -320 ml 0 ml Intake Oral 480 ml 360 ml 480 ml 0 ml IV Total 897 ml 970 ml Output Urine Total 400 ml 150 ml Emesis 150 ml Drainage Total 750 ml 500 ml # Bowel Movements 0 Result Diagram: 07/26/16 0615 07/26/16 0615 Imaging Last 48 hours Impressions Renal Scan w/Medication NM 07/20/16 0000 Signed Impressions: Service Date/Time: Wednesday, July 20, 2016 15:34 - CONCLUSION: High grade obstruction on the right with partial obstruction on the left. Abdullahi Dos Santos MD Chest X-Ray 07/19/16 7617 Signed Impressions: Service Date/Time: Tuesday, July 19, 2016 15:14 - CONCLUSION: 1. The Lvysyx-a-Yupa in good position. 2. The lungs are clear. Salvatore Tolbert MD Objective Remarks Abd:soft,nt,nd B/L PCNT's in place and draining well. 07/25/16 Abd:soft,nt,nd B/L PCNT's in place and draining well. 07/27/15 Abdomen soft nontender nondistended Bilateral percutaneous nephrostomy tubes draining clear urine 07/27 Abd:soft,nt,nd PCNT's in place and draining clear urine Assessment and Plan Problem List: (1) Urinary tract infection ICD Code: N39.0 Status: Acute (2) Bilateral hydronephrosis ICD Code: N13.30 Status: Chronic (3) Invasive carcinoma of urinary bladder ICD Code: C67.9 Status: Chronic Assessment and Plan -Plan for Bilateral nephrostomy tubes today -Will discuss with and defer further care as patient is known to him -Please call with questions 07/22/16 50 y.o male with metastatic bladder cancer with b/l ureteral obstruction s/p b/ l placement of PCNT's Check cultures Continue ABX Will need internalization with b/l JJ stents by IR next week. 07/25/16 50 y.o male with metastatic bladder cancer with b/l ureteral obstruction s/p b/ l placement of PCNT's CT shows worsen evidence of metastatics Maintain b/l PCNT's for now. May not change to internalized stents as stents will fail with increase in bulky disease. Continue ABX Pain control 07/26/16 50-year-old male with metastatic bladder cancer with bilateral ureteral obstruction status post placement of bilateral percutaneous nephrostomy tubes with fever Continue antibiotic coverage per ID Fever may also be a result due to tumor expansion based on recent CT findings. 07/27 50-year-old male with metastatic bladder cancer with bilateral ureteral obstruction status post placement of bilateral percutaneous nephrostomy tubes. For internalization of b/l PCNT's today Continue present management. Eulogio Lee DO Jul 27, 2016 08:44
[2016-07-27] MEDS ORDERED: MIDAZOLAM HCL 5 MG/5 ML VIAL ONE (12:16)
[2016-07-27] MEDS ORDERED: fentaNYL CITRATE 250 MCG/5 ML AMP ONE (12:17)
[2016-07-27] MEDS ORDERED: MIDAZOLAM HCL 2 MG/2 ML VIAL ONE ×2 (13:13→14:02)
[2016-07-27] MEDS ORDERED: IOHEXOL 350 MG/ML 50 ML BTL (for RAD DIAG) ONE (14:55)
[2016-07-27] MEDS: ACETAMINOPHEN 325 MG TAB PO PRN ×2 (15:02→23:50)
[2016-07-27] MEDS: SODIUM CHLOR 0.9% 1000 ML INJ 1,000 ML IV SCH ×2 (15:44→22:13)
--- NOTE | 2016-07-27 16:24 | PD.RAD ---
Post Procedure Progress Note Procedure Date: Jul 27, 2016 Supervising Radiologist: Ochoa Crow Plan of Activity See PACS Report for procedural detail/treatment Drainage Procedure Procedure 1 Imaging Guidance: Fluoroscopy Side: Bilateral Procedure Type: Ureteral Stent Procedure: Placement Additional Detail: 8fr single J stent from left kidney into urostomy bag 7fr single J stent from right kidney into urostomy bag Ochoa Crow MD Jul 27, 2016 16:23
--- NOTE | 2016-07-27 17:14 | HHI.HCPN ---
Call placed to GEOVANNY Hummel to make sure oncology is aware of addendum to CT abdomen and pelvis report. She will make sure Dr. Lee sees the report, she does not feel disease progression will impact plan of care at this time. Palliative care will continue to follow in a supportive role and to assist with symptom management. . RADHA CASILLAS Jul 27, 2016 17:14
[2016-07-27 18:38] LABS: AUTOMATED NEUTROPHIL # 31.8 TH/MM3 (1.8-7.7); BASOPHIL # 0.2 TH/MM3 (0-0.2); BASOPHIL % 0.5 % (0.0-2.0); EOSINOPHIL # 1.1 TH/MM3 (0-0.4); EOSINOPHIL % 2.9 % (0.0-4.0); HEMATOCRIT 24.2 % (39.0-51.0); LYMPH % 4.5 % (9.0-44.0); LYMPHOCYTE # 1.6 TH/MM3 (1.0-4.8); MEAN CELL VOLUME 93.6 FL (80.0-100.0); MEAN CORPUSCULAR HEMOGLOBIN 30.2 PG (27.0-34.0); MEAN CORPUSCULAR HGB CONC 32.3 % (32.0-36.0); MONO % 4.1 % (0.0-8.0); PLATELET COUNT 280 TH/MM3 (150-450); RED BLOOD COUNT 2.58 MIL/MM3 (4.50-5.90); RED CELL DISTRIBUTION WIDTH 15.5 % (11.6-17.2); WHITE BLOOD COUNT 36.1 TH/MM3 (4.0-11.0)
[2016-07-27 18:40] LABS: HEMO FLAGS AUTO DIFF
[2016-07-27 18:41] LABS: INTERNATIONAL NORMALIZED RATIO 1.3 RATIO; PROTHROMBIN TIME - PATIENT 14.1 SEC (9.8-11.6)
[2016-07-27 18:54] LABS: BICARBONATE 25.7 MEQ/L (21.0-32.0); POTASSIUM 3.5 MEQ/L (3.5-5.1)
[2016-07-27 19:10] LABS: BANDS 30 % (0-6); EOSINOPHILS 5 % (0-4); NEUTROPHIL # MANUAL DIFF 32.9 TH/MM3 (1.8-7.7); PLATELET ESTIMATE SMEAR NORMAL (NORMAL); POLYS (SEG NEUTROPHILS) 61 % (16-70); SCAN/DIFF FINAL DIFF MANUAL; WBC DIFF SAMPLE 100
[2016-07-27 19:11] LABS: PLATELET MORPHOLOGY NORMAL (NORMAL)
[2016-07-27 19:13] LABS: TOXIC GRANULATION 1+ (NORMAL); TOXIC VACUOLATION PRESENT (NONE SEEN)
--- NOTE | 2016-07-27 23:59 | HHI.PR ---
Subjective Remarks patient seen todayafter double-J stents placed in IR. Patient says that he feels a little better. Pain is controlled. Denies any nausea or vomiting.still very weak, does not think he will be able to go home tomorrow. Objective Vital Signs Date Time Temp Pulse Resp B/P Pulse Ox O2 Delivery O2 Flow Rate FiO2 07/27/16 20:00 99.3 119 21 147/70 98 07/27/16 17:00 18 07/27/16 16:00 98 Room Air 07/27/16 16:00 98.0 90 18 121/62 91 07/27/16 15:44 102 18 115/72 98 07/27/16 15:14 117 17 105/63 95 07/27/16 14:59 103.0 123 18 142/65 93 07/27/16 09:48 20 07/27/16 08:00 98.3 97 18 122/58 91 07/27/16 04:00 98.0 113 18 122/56 93 07/27/16 00:00 99.8 107 18 127/60 97 I/O 07/26/16 07/26/16 07/26/16 07/27/16 07/27/16 07/27/16 07:00 15:00 23:00 07:00 15:00 23:00 Intake Total 1377 ml 1330 ml 480 ml 0 ml 1124 ml Output Total 750 ml 400 ml 800 ml 850 ml Balance 627 ml 930 ml -320 ml 0 ml 274 ml Intake Oral 480 ml 360 ml 480 ml 0 ml 240 ml IV Total 897 ml 970 ml 884 ml Output Urine Total 400 ml 150 ml 0 ml Stool Total 850 ml Emesis 150 ml Drainage Total 750 ml 500 ml # Bowel Movements 0 0 Result Diagram: 07/27/16 1800 07/27/16 1800 Imaging Last Impressions Abdomen/Pelvis CT 07/24/16 0000 Signed Impressions: Service Date/Time: Monday, July 25, 2016 00:55 - CONCLUSION: 1. Interval development of extensive metastases. In addition to the bulky mass lesions in the urinary bladder bed, there are now large omental and mesenteric masses with central necrosis, retroperitoneal and anterior abdominal wall metastatic deposits with extensive metastasis to the liver. 2. Interval placement of bilateral nephrostomy tubes with decompression of the previously hydronephrotic kidneys. Preston Ewing MD ADDENDUM: COMPARISON: CT ABDOMEN & PELVIS W & W/O CONTRAST, July 13, 2016, 13:43. It has been brought to our attention that a more recent comparison study is available. The liver lesions are stable in number but they have increased in size. In particular a anterior right lobe liver lesion currently measures 2.2 x 1.9 cm compared to 1.8 x 1.4 cm previously. Also, there are 2 lesions near the dome that measure approximately 13 mm each that were previously barely visible measuring approximately 8 mm. No new liver lesion is identified. There is a extrahepatic mass abutting the right lobe of the liver that currently measures 7.8 x 4.1 cm compared to 5.6 x 3.4 cm previously. Throughout the abdomen and pelvis there are multiple peritoneal based masses that have also increased in size. In particular the mass in the right lower quadrant in the iliac fossa measures 9.5 x 6.3 cm compared to 8.0 x 5.6 cm previously. Another index lesion in the left mid abdomen anteriorly measures 7.3 x 7.1 cm compared to 4.2 x 3.2 cm previously. Multiple pelvic soft tissue masses are present and these have also increased in size. In the left inferior pelvis a mass currently measures 7.0 x 5.4 cm compared to 4.6 x 4.9 cm previously. Please see above for description of the remaining findings. IMPRESSION: Comparison was made to the more recent prior examination dated 07/13/2016. As described above, the multiple liver lesions and solid masses within the abdomen and pelvis have increased in size. Index measurements are given above. Findings are indicative of interval progression of disease. Ochoa Roberson MD Nephrostomy 07/22/16 0000 Signed Impressions: Service Date/Time: Friday, July 22, 2016 09:43 - CONCLUSION: Uncomplicated right nephrostomy tube placement as above. The collecting system is grossly dilated. The urine was turbid and therefore sent for microbiological evaluation. Several days of decompression can be performed and then attempts at placement of ureteral stent with extension through the ileal conduit stoma. I spoke with Dr. Lee concerning this. Jesus Perez Jr., MD Renal Scan w/Medication NM 07/20/16 0000 Signed Impressions: Service Date/Time: Wednesday, July 20, 2016 15:34 - CONCLUSION: High grade obstruction on the right with partial obstruction on the left. Abdullahi Dos Santos MD Chest X-Ray 07/19/16 3129 Signed Impressions: Service Date/Time: Tuesday, July 19, 2016 15:14 - CONCLUSION: 1. The Ipfjho-l-Fgxu in good position. 2. The lungs are clear. Salvatore Tolbert MD Objective Remarks GENERAL: Sitting up in bed. Appears comfortable. Alert. Oriented 3. SKIN: Warm and dry. HEAD: Normocephalic. EYES: No scleral icterus. No injection or drainage. NECK: Supple, trachea midline. No JVD. CARDIOVASCULAR: Regular rate and rhythm without murmurs, gallops, or rubs. RESPIRATORY: Breath sounds equal bilaterally. No accessory muscle use. GASTROINTESTINAL: Abdomen soft, nondistended. Ileal conduit right lower quadrant. No surrounding erythema. Abdomen nontender. diverting ileal conduit with 2J stents MUSCULOSKELETAL: No cyanosis, or edema. BACK: Nontender without obvious deformity. No CVA tenderness. A/P Assessment and Plan 50-year-old male with metastatic bladder cancer with bilateral ureteral obstruction status post bilateral placement of percutaneous nephrostomy tubes placed on 07/22/16. Antibiotics Zosyn 07/23ongoing Vancomycin07/19 - ongoing Cefepime. Discontinued. Microbiology 07/23 urine culture from right nephrostomy no growth to date 07/23 urinalysis from the left nephrostomy noninfectious appearing. 07/23. Blood cultures pending. No growth to date 07/19 urine culturepansensitive Flavimonas. 07/19 blood cultures. 1 of 4 staph hemolyticus Last fever: 07/27. 103F 07/27/16 - -still with fevers. Continue antibiotics. status post double-J stents by IR. -blood transfusion for symptomatic anemia -PTOT //Severe Sepsis -patient continues with tachycardia, fevers, leukocytosis, complicated UTI. -07/23. Recurrent fever 103. Repeat blood, urinalysis from bilateral nephrostomy tubes. Fluids. Switch to Zosyn. There is a possibility that fevers are malignancy related, however we'll need to treat any infection first. -07/24. Discussed with infectious disease. CT abdomen ordered and pending. Appreciate assistance. Continue antibiotics as above. Follow-up cultures as above. -07/25. CT abdomen with necrotic metastasis. This could be causing fevers. We' ll continue antibiotics as above. Appreciate ID assistance. //Complicated urinary tract infection Patient with history of invasive bladder cancer, ileal conduit, recent CT scan does indicate hydronephrosis, hydroureters, status post bilateral nephrostomies on 07/22. Flavminonas pansensitive. -Due to recurrent fevers on 07/23. Start on Zosyn. Repeat cultures pending. As above. -07/24. Continued fevers. Continue antibiotics as above. Infectious disease following. Follow-up cultures. -07/25. Continued fevers. Discussed with infectious disease. Continue antibiotics as above. -07/26. Again with continued fevers. Continue antibiotics. //Leukocytosis Secondary to infection Continue monitor. As above. //Invasive bladder cancer with hydronephrosis, hydroureters Bilateral hydronephrosis as below. Graphics Intern/oncologist has evaluated the patient and recommending palliative chemotherapy versus checkpoint inhibitor. Palliative care physician following patient for better pain control and management on methadone -he states that this pain regimen is adequate -Pain reasonably well controlled. Continue to monitor. -07/24. Will add oxyContin 20 mg twice daily, discontinue methadone. We'll increase OxyContin as necessary. -07/25. Increase OxyContin to 30 mg twice daily. transition Dilaudid to by mouth. -07/26. Pain much improved. Continue to monitor. -07/27. Pain controlled. Continue to monitor. //Acute on chronic anemia. -Low iron, low TIBC, high ferritin consistent with anemia of inflammation. -Hemoglobin down to 6.9 on 07/24 - likely dilutional secondary to fluid boluses. -No signs of bleeding. 07/24. Transfusion 1 unit. -Patient is rather weak. Hemoglobin 7.8. We'll order blood transfusion. Discussed risks and benefits with patient. //Bilateral hydronephrosis. -Renal scan confirmed high-grade obstruction on the right, partial obstruction of the left -Underwent bilateral. Urology placed bilateral nephrostomy tubes 07/22. -07/27 IR placed bilateral double-J stents. Continue to monitor renal function. //Hypokalemia. Acute. Mild. Replace as necessary. Monitor. //DVT prophylaxis Sequential compression devices, anticoagulation on hold due to anemia. DO NOT RESUSCITATE CODE STATUS. Discharge Planning Ongoing sepsis versus fevers from malignancy.continues on IV antibiotics. -Titrating pain medications. -weak. PT/OT consult. -patient likely benefit from inpatient rehabilitation. Ajay Aceves MD Jul 27, 2016 23:59
[2016-07-28] VITALS (10 sets, daily range): BP systolic 102–131; BP diastolic 54–68; PULSE 88–117; RESP 16–20; TEMP 97.5–100.5; O2SAT 92–97
[2016-07-28] MEDS: HYDROmorphone HCL 4 MG TAB PO PRN ×2 (00:03→14:13)
[2016-07-28] MEDS: PIPERACIL-TAZO 3.375 GM PREMIX 50 ML IV SCH ×4 (02:00→21:22)
[2016-07-28] MEDS: LORazepam 0.5 MG TAB PO SCH ×3 (06:18→21:22)
[2016-07-28] MEDS: VANCOMYCIN 1,000 MG/NS 250 ML IV SCH ×2 (06:18)
[2016-07-28] MEDS: DOCUSATE SODIUM 50 MG/SENNA 8.6 MG TAB PO SCH ×2 (08:49→21:25)
[2016-07-28] MEDS: ONDANSETRON ODT 4 MG TAB PO SCH (08:49)
[2016-07-28] MEDS: SODIUM CHLORIDE 0.9% FLUSH 5 ML FLUSH FLUSH SCH ×2 (08:49→21:00)
[2016-07-28] MEDS: oxyCODONE HCL 10 MG CONTROLLED RELEASE TAB PO SCH ×2 (08:49→21:22)
[2016-07-28 10:00] LABS: BICARBONATE 26.9 MEQ/L (21.0-32.0); POTASSIUM 3.2 MEQ/L (3.5-5.1)
--- NOTE | 2016-07-28 10:49 | HHI.PR ---
Subjective Remarks Pt seen and examined. S/P bilateral nephrostomy tube internalization with b/l JJ stents. C/O right LE Edema today Objective Vital Signs Vital Signs Date Time Temp Pulse Resp B/P Pulse Ox O2 Delivery O2 Flow Rate FiO2 07/28/16 10:15 18 07/28/16 08:00 97.8 89 18 131/60 97 07/28/16 07:00 97.8 90 16 131/60 96 07/28/16 04:45 98.5 88 16 102/58 93 07/28/16 04:30 98.4 88 16 109/58 94 07/28/16 03:45 98.6 94 16 105/56 94 07/28/16 01:40 99.5 104 16 131/55 96 07/28/16 01:25 99.2 117 16 114/54 94 07/27/16 23:45 102.8 119 21 138/61 97 07/27/16 22:00 Room Air 07/27/16 20:00 99.3 119 21 147/70 98 07/27/16 17:00 18 07/27/16 16:00 98 Room Air 07/27/16 16:00 98.0 90 18 121/62 91 07/27/16 15:44 102 18 115/72 98 07/27/16 15:14 117 17 105/63 95 07/27/16 14:59 103.0 123 18 142/65 93 I/O 07/27/16 07/27/16 07/27/16 07/28/16 07/28/16 07/28/16 07:00 15:00 23:00 07:00 15:00 23:00 Intake Total 0 ml 1124 ml 240 ml Output Total 1175 ml 0 ml Balance 0 ml -51 ml 240 ml Intake Oral 0 ml 240 ml 240 ml IV Total 884 ml Output Urine Total 325 ml 0 ml Stool Total 850 ml # Bowel Movements 0 0 Result Diagram: 07/27/16 1800 07/28/16 0900 Imaging Last 48 hours Impressions Renal Scan w/Medication NM 07/20/16 0000 Signed Impressions: Service Date/Time: Wednesday, July 20, 2016 15:34 - CONCLUSION: High grade obstruction on the right with partial obstruction on the left. Abdullahi Dos Santos MD Chest X-Ray 07/19/16 1457 Signed Impressions: Service Date/Time: Tuesday, July 19, 2016 15:14 - CONCLUSION: 1. The Avhkbz-r-Jvgb in good position. 2. The lungs are clear. Salvatore Tolbert MD Objective Remarks Abd:soft,nt,nd B/L PCNT's in place and draining well. 07/25/16 Abd:soft,nt,nd B/L PCNT's in place and draining well. 07/27/15 Abdomen soft nontender nondistended Bilateral percutaneous nephrostomy tubes draining clear urine 07/27 Abd:soft,nt,nd PCNT's in place and draining clear urine 07/28 Abd:soft,nt,nd Conduit draining clear urine Assessment and Plan Problem List: (1) Urinary tract infection ICD Code: N39.0 Status: Acute (2) Bilateral hydronephrosis ICD Code: N13.30 Status: Chronic (3) Invasive carcinoma of urinary bladder ICD Code: C67.9 Status: Chronic Assessment and Plan -Plan for Bilateral nephrostomy tubes today -Will discuss with and defer further care as patient is known to him -Please call with questions 07/22/16 50 y.o male with metastatic bladder cancer with b/l ureteral obstruction s/p b/ l placement of PCNT's Check cultures Continue ABX Will need internalization with b/l JJ stents by IR next week. 07/25/16 50 y.o male with metastatic bladder cancer with b/l ureteral obstruction s/p b/ l placement of PCNT's CT shows worsen evidence of metastatics Maintain b/l PCNT's for now. May not change to internalized stents as stents will fail with increase in bulky disease. Continue ABX Pain control 07/26/16 50-year-old male with metastatic bladder cancer with bilateral ureteral obstruction status post placement of bilateral percutaneous nephrostomy tubes with fever Continue antibiotic coverage per ID Fever may also be a result due to tumor expansion based on recent CT findings. 07/27 50-year-old male with metastatic bladder cancer with bilateral ureteral obstruction status post placement of bilateral percutaneous nephrostomy tubes. For internalization of b/l PCNT's today Continue present management. 07/28 50-year-old male with metastatic bladder cancer with bilateral ureteral obstruction status post placement of JJ stents Creatinine up to 1.6. Continue IVF Right LE edema; will order US to r/o DVT Continue ABX per ID Eulogio Lee DO Jul 28, 2016 10:49
[2016-07-28] MEDS: SODIUM CHLOR 0.9% 1000 ML INJ 1,000 ML IV SCH ×2 (11:44→21:44)
--- NOTE | 2016-07-28 13:37 | PD.ONC.PN ---
Subjective Subjective Remarks "I just can't get a break" Reports doesn't feel bad with fever, but feels hot. Feels tired and unwell today. Discussed fevers and evaluation thus far. Concerned about going home and that his mom may not be able to take care of him. Objective Data Date Time Temp Pulse Resp B/P Pulse Ox O2 Delivery O2 Flow Rate FiO2 07/28/16 12:00 99.9 111 18 128/58 92 07/28/16 10:15 18 07/28/16 08:00 97.8 89 18 131/60 97 07/28/16 07:00 97.8 90 16 131/60 96 07/28/16 04:45 98.5 88 16 102/58 93 07/28/16 04:30 98.4 88 16 109/58 94 07/28/16 03:45 98.6 94 16 105/56 94 07/28/16 01:40 99.5 104 16 131/55 96 07/28/16 01:25 99.2 117 16 114/54 94 07/27/16 23:45 102.8 119 21 138/61 97 07/27/16 22:00 Room Air 07/27/16 20:00 99.3 119 21 147/70 98 07/27/16 17:00 18 07/27/16 16:00 98 Room Air 07/27/16 16:00 98.0 90 18 121/62 91 07/27/16 15:44 102 18 115/72 98 07/27/16 15:14 117 17 105/63 95 07/27/16 14:59 103.0 123 18 142/65 93 07/28/16 07/28/16 07/28/16 07:00 15:00 23:00 Intake Total 240 ml Output Total 0 ml Balance 240 ml Result Diagram: 07/27/16 1800 07/28/16 0900 Laboratory Results Laboratory Tests Test 07/27/16 07/28/16 18:00 09:00 White Blood Count 36.1 TH/MM3 Red Blood Count 2.58 MIL/MM3 Hemoglobin 7.8 GM/DL Hematocrit 24.2 % Mean Corpuscular Volume 93.6 FL Mean Corpuscular Hemoglobin 30.2 PG Mean Corpuscular Hemoglobin 32.3 % Concent Red Cell Distribution Width 15.5 % Platelet Count 280 TH/MM3 Mean Platelet Volume 7.9 FL Neutrophils (%) (Auto) 88.0 % Lymphocytes (%) (Auto) 4.5 % Monocytes (%) (Auto) 4.1 % Eosinophils (%) (Auto) 2.9 % Basophils (%) (Auto) 0.5 % Neutrophils # (Auto) 31.8 TH/MM3 Lymphocytes # (Auto) 1.6 TH/MM3 Monocytes # (Auto) 1.5 TH/MM3 Eosinophils # (Auto) 1.1 TH/MM3 Basophils # (Auto) 0.2 TH/MM3 CBC Comment AUTO DIFF Differential Total Cells 100 Counted Neutrophils % (Manual) 61 % Band Neutrophils % 30 % Lymphocytes % 3 % Monocytes % 1 % Eosinophils % 5 % Neutrophils # (Manual) 32.9 TH/MM3 Differential Comment FINAL DIFF MANUAL Toxic Granulation 1+ Toxic Vacuolation PRESENT Platelet Estimate NORMAL Platelet Morphology Comment NORMAL Prothrombin Time 14.1 SEC Prothromb Time International 1.3 RATIO Ratio Sodium Level 143 MEQ/L 142 MEQ/L Potassium Level 3.5 MEQ/L 3.2 MEQ/L Chloride Level 106 MEQ/L 106 MEQ/L Carbon Dioxide Level 25.7 MEQ/L 26.9 MEQ/L Anion Gap 11 MEQ/L 9 MEQ/L Blood Urea Nitrogen 7 MG/DL 10 MG/DL Creatinine 1.06 MG/DL 1.67 MG/DL Estimat Glomerular Filtration 74 ML/MIN 44 ML/MIN Rate Random Glucose 77 MG/DL 100 MG/DL Calcium Level 8.8 MG/DL 8.0 MG/DL Blood Type B POSITIVE Antibody Screen NEGATIVE Crossmatch Leukocyte-Reduced Red Blood Cells Blood Bank Comment Administered Medications Medications (Trade) Dose Ordered Sig/Ambika Route PRN Reason Start Time Stop Time Status Last Admin Dose Admin Sodium Chloride (NS 1000 ml Inj) 1,000 ml @ 100 mls/hr Q10H IV 07/19/16 17:44 07/28/16 11:44 IV Flush (NS Flush) 2 ml UNSCH PRN FLUSH FLUSH AFTER USING IV ACCESS 07/19/16 17:45 07/20/16 05:58 IV Flush (NS Flush) 2 ml BID FLUSH 07/19/16 21:00 07/26/16 20:46 Acetaminophen (Tylenol) 650 mg Q4H PRN PO fever >101 07/19/16 20:00 07/27/16 23:50 Citalopram Hydrobromide (CeleXA) 20 mg DAILY PO 07/20/16 13:00 Hold 07/20/16 13:00 Lorazepam (Ativan) 0.5 mg Q8HR PO 07/20/16 14:00 07/28/16 06:18 Lorazepam (Ativan) 1 mg Q6H PRN PO anxiety/sob #6-10 07/20/16 13:00 07/22/16 00:36 Hydromorphone HCl (Dilaudid Pf Inj) 0.75 mg Q3HR PRN IV PUSH BREAKTHROUGH PAIN 07/20/16 13:45 07/26/16 00:06 Ondansetron HCl (Zofran Inj) 4 mg Q6HR PRN IV PUSH NAUSEA OR VOMITING 07/23/16 11:45 07/26/16 20:55 Oxycodone HCl 30 mg 30 mg Q12HR PO 07/25/16 21:00 07/28/16 08:49 Piperacillin Sod/ Tazobactam Sod (Zosyn 3.375 Gm Premix) 50 ml @ 100 mls/hr Q6H IV 07/25/16 20:00 07/28/16 08:46 Hydromorphone HCl (Dilaudid) 2 mg Q4H PRN PO PAIN SCALE 1 TO 5 07/25/16 19:45 07/26/16 22:16 Hydromorphone HCl (Dilaudid) 4 mg Q4H PRN PO PAIN SCALE 6 TO 10 07/25/16 19:45 07/28/16 00:03 Senna/Docusate Sodium 1 tab 1 tab BID PO 07/25/16 21:00 07/28/16 08:49 Vancomycin HCl/ Sodium Chloride (Vancomycin Inj/ NS 250 ml Inj) 250 ml @ 250 mls/hr Q8H IV 07/26/16 06:00 Hold 07/28/16 06:18 Objective Remarks Objective Remarks GENERAL: Middle aged male, lying supine in bed. SKIN: Warm and dry. HEAD: Normocephalic. EYES: No injection or drainage. NECK: Supple, trachea midline. CARDIOVASCULAR: Regular rate and rhythm RESPIRATORY: Breath sounds equal bilaterally. No accessory muscle use. GASTROINTESTINAL: Abdomen soft, non-tender, nondistended. BPNT draining clear yellow urine. Nephrostomy tube internalized. EXTREMITIES: BL Lower extremity swelling, R leg > L NEUROLOGICAL: awake and alert, normal speech. moving all extremities. Assessment/Plan Problem List: (1) Invasive carcinoma of urinary bladder Status: Chronic Plan: 07/28/16. Case discussed with Dr. Lee- plan for palliative treatment as out patient. Concern that fevers and due to Tumor Fevers, persistent associated with Leukocytosis. Clinical decline, with worsen renal function, new lower extremity edema, leukocytosis no response to antibiotic. Plan continue to be to start immunotherapy as out patient. KPS need to improve. Consult case management for options. 07/25: patient again confirmed desire to try immunotherapy once discharged. discussed waiting on infection to clear. 07/22: discussed possible treatment with Keytruda once discharged. discussed need for current infection to resolve before further treatment could be considered. Post palliative surgery for hematuria, pt suspected to have metastatic disease and recurrence. Course complicated by Gm neg trinity uremia, ? gm + cocci bacteremia, significant leukocytosis, and hydronephrosis/obstruction. Need for acute events to resolve before cancer directed therapy could be initiated such as check point inhibitor as out pt. Assessment 50 y/o man with muscle invasive bladder cancer, with progression to metastatic disease admitted for urosepsis/gm neg trinity. Plan 1. abx per ID 2. outpt treatment with check point inhibitor 3. Follow creatinine with hydration 4. Transfuse for hgb<7.5 or symptoms 5. Follow US LE r/o DVT. 6. Consult case management. Idalia Lee MD Jul 28, 2016 13:37
[2016-07-28] MEDS: ONDANSETRON HCL 4 MG/2 ML VIAL IV PUSH PRN (14:02)
--- NOTE | 2016-07-28 14:30 | HHI.HCPN ---
Reason for visit a. To assist with evaluation and management of symptoms including: pain; anxiety; fever. b. To assist medical decision maker(s) with: better understanding of current medical conditions; weighing benefits/burdens of medical treatment options; making medical treatment decisions. . Subjective/Interval History There to follow-up for pain and symptom management. Patient seen in his room, he was laying in bed in moderate distress. Currently reporting lower back/ bilateral flanks pain currently rated at 8/10. Has just received 1 dose of hydromorphone PRN for breakthrough pain. Pain is described as sharp, exacerbated by prolonged bedrest/movement and alleviated by hydromorphone. Pain regimen was changed from methadone (stopped on 07/24/16) to oxycodone sustained release. He is now on 30 mg of oxycodone q 12 hours ATC and hydromorphone by mouth 2 mg for moderate pain and 4 mg for severe pain every 4 hours as needed. Has required one dose of 4 mg yesterday and one dose of 4 mg today with good effect. Hydromorphone 0.75 IV also available every 3 hours as needed for severe breakthrough pain, none required in the past 24 hours. Patient reports that her overall pain is much controlled with new pain regimen. Current pain attributed to acute postsurgical procedure/urethral stent placement on 07/27/16. Patient reporting nausea, worsen after meals. Reports that so far and is also helping. Patient required one dose yesterday and 1 dose today. Patient currently on Ativan 0.5 by mouth every 8 hours [id number] for anxiety management. He feels that this regimen is very effective and is allowing him to relax and also control his pain/nausea. Ativan 0.5 to 1 mg available every 6 hours as needed for anxiety and shortness of breath. None required in the past 24 hours. Temperature 99.9 today. Stable blood pressure. Tolerating room air. Laboratory yesterday including WBC 36.1, Hgb 7.8, platelet count 280. Chemistry today including sodium 142, potassium 3.2, BUN/creatinine 10/1.67. Albumin 1.6. CT of abdomen and pelvis on 07/24/16 showing progression of disease, no evidence of abscess. Extensive mets and nephrostomy tubes noted. Patient verbalizing concern about discharge planning, reports not being sure his mother who is 72 years old will be able to assist with medication management. Patient continues to elect for disease specific therapy upon discharge. Case management has been consulted by oncology -Dr. Lee to explore discharge options. . Family/friend interactions No family at bedside. . Advance Directives Living Will: Copy in medical record Health Care Surrogate: Copy in medical record Durable Power of Quality Control Clerk: Never completed Advance Directive Specifics Date completed: The patient completed a living will with my assistance on 07/20/16. . Health Care Surrogate(s): The patient has designated his Payal Suazo his health care surrogate. . Documented care wishes: The patient is completed a standard [place] living will indicating that he would not want life prolonging measures should he be found to have an end-stage condition; terminal condition; or persistent vegetative state. . Significant change in goals: No code. DNR/DNI. Continue with this is specific therapy. Goal to discharge home when medically clear. . Objective Vital Signs Date Time Temp Pulse Resp B/P Pulse Ox O2 Delivery O2 Flow Rate FiO2 07/28/16 12:00 99.9 111 18 128/58 92 07/28/16 10:15 18 07/28/16 08:00 97.8 89 18 131/60 97 07/28/16 07:00 97.8 90 16 131/60 96 07/28/16 04:45 98.5 88 16 102/58 93 07/28/16 04:30 98.4 88 16 109/58 94 07/28/16 03:45 98.6 94 16 105/56 94 07/28/16 01:40 99.5 104 16 131/55 96 07/28/16 01:25 99.2 117 16 114/54 94 07/27/16 23:45 102.8 119 21 138/61 97 07/27/16 22:00 Room Air 07/27/16 20:00 99.3 119 21 147/70 98 07/27/16 17:00 18 07/27/16 16:00 98 Room Air 07/27/16 16:00 98.0 90 18 121/62 91 07/27/16 15:44 102 18 115/72 98 07/27/16 15:14 117 17 105/63 95 07/27/16 14:59 103.0 123 18 142/65 93 Intake & Output 07/28/16 07/28/16 07:00 19:00 Intake Total 480 ml Output Total 325 ml Balance 155 ml Intake Oral 480 ml Output Urine Total 325 ml # Bowel Movements 0 Physical Exam CONSTITUTIONAL/GENERAL: This is a thin male in moderate distress secondary to pain. Alert, awake, verbal and able to communicate needs. TUBES/LINES/DRAINS: [id number] right chest; ileoconduit, bilateral nephrostomy tubes. SKIN: No jaundice, or lesions.. Healed abdominal surgical scars. Skin warm to touch and diaphoretic. CARDIOVASCULAR: tachycardic. RESPIRATORY/CHEST: Symmetric, unlabored respirations. Clear to auscultation. Breath sounds equal bilaterally. Right sided [id number]. GASTROINTESTINAL: Diffuse mild-moderate tenderness across the lower abdomen. Abdomen soft, nondistended. No guarding. Bowel sounds present. Ileoconduit present. GENITOURINARY: Ileoconduit present (no urine in bag). Bilateral nephrostomy tubes. MUSCULOSKELETAL: Extremities without clubbing, cyanosis, or edema. No mottling. Trace edema to bilateral lower extremities. NEUROLOGICAL: Awake and alert. Motor and sensory grossly within normal limits. Follows commands. Cognitively sharp. Moves all extremities. PSYCHIATRIC: Appears relaxed. No obvious depression. No evidence of psychotic thought process. . Diagnostic Tests Laboratory Laboratory Tests Test 07/25/16 07/26/16 07/27/16 07/27/16 16:45 06:15 06:20 18:00 Vancomycin Level Trough 19.8 MCG/ML 19.7 MCG/ML (5.0-10.0) (5.0-10.0) White Blood Count 27.6 TH/MM3 36.1 TH/MM3 (4.0-11.0) (4.0-11.0) Red Blood Count 2.40 MIL/MM3 2.58 MIL/MM3 (4.50-5.90) (4.50-5.90) Hemoglobin 7.3 GM/DL 7.8 GM/DL (13.0-17.0) (13.0-17.0) Hematocrit 22.0 % 24.2 % (39.0-51.0) (39.0-51.0) Mean Corpuscular Volume 91.5 FL 93.6 FL (80.0-100.0) (80.0-100.0) Mean Corpuscular Hemoglobin 30.2 PG 30.2 PG (27.0-34.0) (27.0-34.0) Mean Corpuscular Hemoglobin 33.0 % 32.3 % Concent (32.0-36.0) (32.0-36.0) Red Cell Distribution Width 15.4 % 15.5 % (11.6-17.2) (11.6-17.2) Platelet Count 268 TH/MM3 280 TH/MM3 (150-450) (150-450) Mean Platelet Volume 7.4 FL 7.9 FL (7.0-11.0) (7.0-11.0) Neutrophils (%) (Auto) 85.1 % 88.0 % (16.0-70.0) (16.0-70.0) Lymphocytes (%) (Auto) 6.2 % 4.5 % (9.0-44.0) (9.0-44.0) Monocytes (%) (Auto) 4.3 % (0.0-8.0) 4.1 % (0.0-8.0) Eosinophils (%) (Auto) 3.9 % (0.0-4.0) 2.9 % (0.0-4.0) Basophils (%) (Auto) 0.5 % (0.0-2.0) 0.5 % (0.0-2.0) Neutrophils # (Auto) 23.5 TH/MM3 31.8 TH/MM3 (1.8-7.7) (1.8-7.7) Lymphocytes # (Auto) 1.7 TH/MM3 1.6 TH/MM3 (1.0-4.8) (1.0-4.8) Monocytes # (Auto) 1.2 TH/MM3 1.5 TH/MM3 (0-0.9) (0-0.9) Eosinophils # (Auto) 1.1 TH/MM3 1.1 TH/MM3 (0-0.4) (0-0.4) Basophils # (Auto) 0.1 TH/MM3 0.2 TH/MM3 (0-0.2) (0-0.2) CBC Comment DIFF FINAL AUTO DIFF Differential Comment FINAL DIFF MANUAL Sodium Level 140 MEQ/L 143 MEQ/L (136-145) (136-145) Potassium Level 3.4 MEQ/L 3.5 MEQ/L (3.5-5.1) (3.5-5.1) Chloride Level 102 MEQ/L 106 MEQ/L (98-107) (98-107) Carbon Dioxide Level 30.0 MEQ/L 25.7 MEQ/L (21.0-32.0) (21.0-32.0) Anion Gap 8 MEQ/L (5-15) 11 MEQ/L (5-15) Blood Urea Nitrogen 7 MG/DL (7-18) 7 MG/DL (7-18) Creatinine 0.87 MG/DL 1.06 MG/DL (0.60-1.30) (0.60-1.30) Estimat Glomerular Filtration 93 ML/MIN (>89) 74 ML/MIN (>89) Rate Random Glucose 96 MG/DL 77 MG/DL (74-106) (74-106) Calcium Level 8.4 MG/DL 8.8 MG/DL (8.5-10.1) (8.5-10.1) Phosphorus Level 3.7 MG/DL (2.5-4.9) Magnesium Level 1.9 MG/DL (1.5-2.5) Albumin 1.6 GM/DL (3.4-5.0) Differential Total Cells 100 Counted Neutrophils % (Manual) 61 % (16-70) Band Neutrophils % 30 % (0-6) Lymphocytes % 3 % (9-44) Monocytes % 1 % (0-8) Eosinophils % 5 % (0-4) Neutrophils # (Manual) 32.9 TH/MM3 (1.8-7.7) Toxic Granulation 1+ (NORMAL) Toxic Vacuolation PRESENT (NONE SEEN) Platelet Estimate NORMAL (NORMAL) Platelet Morphology Comment NORMAL (NORMAL) Prothrombin Time 14.1 SEC (9.8-11.6) Prothromb Time International 1.3 RATIO Ratio Blood Type B POSITIVE Antibody Screen NEGATIVE Crossmatch Leukocyte-Reduced Red Blood Cells Blood Bank Comment Test 07/28/16 09:00 Sodium Level 142 MEQ/L (136-145) Potassium Level 3.2 MEQ/L (3.5-5.1) Chloride Level 106 MEQ/L (98-107) Carbon Dioxide Level 26.9 MEQ/L (21.0-32.0) Anion Gap 9 MEQ/L (5-15) Blood Urea Nitrogen 10 MG/DL (7-18) Creatinine 1.67 MG/DL (0.60-1.30) Estimat Glomerular Filtration 44 ML/MIN (>89) Rate Random Glucose 100 MG/DL (74-106) Calcium Level 8.0 MG/DL (8.5-10.1) Result Diagram: 07/27/16 1800 07/28/16 0900 Procedures * Bilateral nephrostomy tube placement . Assessment and Plan Disease Oriented Problem List: (1) Invasive carcinoma of urinary bladder Comment: Imaging shows progression of disease in spite of aggressive treatment. Mets now apparent in pelvic lymph nodes, lungs, liver, and possible abdominal carcinomatosis. . (2) Bilateral hydronephrosis (3) Anemia due to blood loss (4) Hematuria (5) Intractable nausea and vomiting Comment: Improving with odansetron and with treatment of infection. . 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 . (7) Hypoalbuminemia Symptom Scale: (1) Pain 0-10 Scale: 2 Comment: The patient's pain is primarily across his low back and across his lower abdomen. Pain reaches a #8 in intensity on most days. His current medication brings pain levels down at best to a #5. The pain is worse with movement. He describes the pain as sharp. It is nonradiating. Straining at stool also seems to exacerbate the pain. . (2) Anxiety 0-10 Scale: 0 Comment: Long history of anxiety pre-dates the cancer diagnosis but the progression of disease, ongoing need for hospitalizations, increasing dependence , etc have exacerbated the anxiety. . (3) Nausea & vomiting 0-10 Scale: 6 Comment: Zofran as needed. Pertinent Non-Medical Issues Psychosocial: lives with his mother. Spiritual: Confucianist yessica. Legal: Patient is currently capacitated to make his own decisions. Patient completed living will and HCS. Named his mother, Laurie Kee as designated healthcare surrogate should he lose capacity. Ethical issues impacting care: No known concerns at this time. . Important Contacts * Laurie Henderson (mother and health care surrogate) -- [phone] . Prognosis Mr. Henderson has widely metastatic (pelvic lymph, lungs, liver, abdominal carcinomatosis) bladder cancer that has progressed in spite of aggressive care. His treatment course has been challenging due to recurrent hematuria and infection. Treatment options would all be palliative going forward. Dr. Lee has offered the possibility of a checkpoint inhibitor. The patient understands this might have a 20-30% chance of slowing progression and improving quality of his life. Mr. Henderson clearly understands there is no cure at this point. While he is hoping to try the new therapy and hoping he responds , he is quite clear that the does not want treatments that will just prolong an uncomfortable dying process. He is familiar with hospice which took care of his father and will want to transition to hospice care if he does not tolerate the offered treatment or disease continues to progress in spite of the new therapy. . Code Status: No Code Plan * CODE STATUS: NO CODE per patient wishes. [place] DNR given to patient. * DECISION-MAKING CAPACITY: Patient is currently capacitated to make his own health care decisions. Should he become incapacitated, he has designated his motherLaurie Hendersonas his health care surrogate. * GOALS OF CARE: Maintain the best quality of life while undergoing disease- specific therapy. Patient desires aggressive care short of resuscitation in hopes of benefiting from the remaining therapy that Dr. Lee has recommended. Patient verbalizing concern about discharge planning, reports not being sure his mother who is 72 years old will be able to assist with medication management. Case management has been consulted by oncology -Dr. Lee to explore discharge options. * =Pain, secondary to burden of disease -controlled at this time. Pain regimen was changed from methadone (stopped on 07/24/16) to oxycodone sustained release. He is now on 30 mg of oxycodone q 12 hours ATC and hydromorphone by mouth 2 mg for moderate pain and 4 mg for severe pain every 4 hours as needed. Has required one dose of 4 mg yesterday and one dose of 4 mg today with good effect. Hydromorphone 0.75 IV also available every 3 hours as needed for severe breakthrough pain, none required in the past 24 hours. Patient reports that her overall pain is much controlled with new pain regimen. Current pain attributed to acute postsurgical procedure/urethral stent placement on 07/27/16. No further pain management recommendations at this time. == Tylenol 650 mg available every 4 hours as needed. Palliative care recommends increasing frequency to every 8hr as total daily availability is above recommended dose of 3g. * =Anxiety: Improving with addition of Lorazepam 0.5 mg every 8 hours ATC. Lorazepam 0.5-1 mg available as needed for anxiety and shortness of breath. Citalopram was recommended to help anxiety while minimizing sedation, now discontinued. * =Nausea/vomiting: Zofran available as needed. * Active listening and ongoing emotional support provided. * Palliative care will continue to follow to assist with symptom management and to further clarify goals of medical treatment as the clinical course evolves. . Time Spent Total Floor Time (mins): 38 (Total time to include review and summarization of medical records and physical exam ) >50% Counseling/Coord of Care: Yes Attestation To help prompt me to consider important information that might be impacting today's encounter and assessment, information from prior notes written by myself or my colleagues may have been "brought forward" into today's note. My signature on this note, however, is an attestation that I personally performed the exam, history, and/or decision-making noted today, and, unless otherwise indicated, the interactions with patient, family, and staff as well as the review of records all occurred today. I also attest that the listed assessment and stated plan reflect my best clinical judgment today based on the combination of historical information, prior notes, and today's exam/ interactions. When time spent is documented, it refers only to time spent today by the signer, or if indicated, combined time spent today by collaborating physician/nurse practitioner. Krista Hills Jul 28, 2016 14:30
[2016-07-28 16:02] LABS: BASOPHIL # 0.1 TH/MM3 (0-0.2); BASOPHIL % 0.4 % (0.0-2.0); EOSINOPHIL # 0.6 TH/MM3 (0-0.4); EOSINOPHIL % 1.8 % (0.0-4.0); HEMATOCRIT 24.8 % (39.0-51.0); LYMPH % 2.5 % (9.0-44.0); LYMPHOCYTE # 0.9 TH/MM3 (1.0-4.8); MEAN CELL VOLUME 90.8 FL (80.0-100.0); MEAN CORPUSCULAR HEMOGLOBIN 30.4 PG (27.0-34.0); MEAN CORPUSCULAR HGB CONC 33.5 % (32.0-36.0); MONO % 4.3 % (0.0-8.0); PLATELET COUNT 240 TH/MM3 (150-450); RED BLOOD COUNT 2.73 MIL/MM3 (4.50-5.90); RED CELL DISTRIBUTION WIDTH 15.5 % (11.6-17.2); WHITE BLOOD COUNT 35.1 TH/MM3 (4.0-11.0)
[2016-07-28 16:06] LABS: HEMO FLAGS AUTO DIFF
[2016-07-28 16:41] LABS: BANDS 22 % (0-6); NEUTROPHIL # MANUAL DIFF 31.2 TH/MM3 (1.8-7.7); POLYS (SEG NEUTROPHILS) 67 % (16-70); WBC DIFF SAMPLE 100
[2016-07-28 16:42] LABS: PLATELET ESTIMATE SMEAR NORMAL (NORMAL); PLATELET MORPHOLOGY NORMAL (NORMAL); SCAN/DIFF FINAL DIFF MANUAL; TOXIC GRANULATION 1+ (NORMAL)
--- NOTE | 2016-07-28 17:06 | RADRPT ---
EXAM DATE/TIME: 07/28/2016 11:27 [facility] COMPARISON: No previous studies available for comparison. INDICATIONS : Bilateral lower extremity edema. MEDICAL HISTORY : Hypertension. Neurogenic bladder. Spinal cord tumor. Dyspnea. Bladder cancer. Chemotherapy. SURGICAL HISTORY : Cystoscopy. Cystoprostatectomy. Benign tumor removed from spine. ENCOUNTER: Initial ACUITY: 1 day PAIN SCORE: 0/10 LOCATION: Bilateral legs. TECHNIQUE: Venous ultrasound of the left and right leg was performed from the inguinal ligament to the proximal calf. Real-time, color Doppler and spectral tracing, compression and augmentation techniques were us ed. FINDINGS: RIGHT LEG: There is normal compressibility of the deep venous system from the inguinal region to the proximal ca lf. No echogenic clot is seen in the lumen of the common femoral, femoral, popliteal, and posterior tibial veins. There is a normal response of the venous system to proximal and distal augmentation an d respiration. LEFT LEG: There is normal compressibility of the deep venous system from the inguinal region to the proximal ca lf. No echogenic clot is seen in the lumen of the common femoral, femoral, popliteal, and posterior tibial veins. There is a normal response of the venous system to proximal and distal augmentation an d respiration. CONCLUSION: No evidence of DVT. Mario Calix MD on July 28, 2016 at 17:04 Board Certified Radiologist. This report was verified electronically.
[2016-07-28] MEDS ORDERED: POTASSIUM CHLORIDE 10 MEQ CONTROLLED RELEASE TAB PO ONE (17:15)
--- NOTE | 2016-07-28 17:16 | HHI.PR ---
Subjective Remarks patient seen today around 3 PM. Patient has had some nausea today. Denies any chest pain or shortness of breath. No vomiting. Patient did have some right lower extremity edema which she said started last night. Ultrasound leg has been ordered by urology. Objective Vital Signs Date Time Temp Pulse Resp B/P Pulse Ox O2 Delivery O2 Flow Rate FiO2 07/28/16 16:00 100.5 102 18 113/57 94 07/28/16 15:19 18 07/28/16 12:00 99.9 111 18 128/58 92 07/28/16 10:15 18 07/28/16 08:00 97.8 89 18 131/60 97 07/28/16 07:00 97.8 90 16 131/60 96 07/28/16 04:45 98.5 88 16 102/58 93 07/28/16 04:30 98.4 88 16 109/58 94 07/28/16 03:45 98.6 94 16 105/56 94 07/28/16 01:40 99.5 104 16 131/55 96 07/28/16 01:25 99.2 117 16 114/54 94 07/27/16 23:45 102.8 119 21 138/61 97 07/27/16 22:00 Room Air 07/27/16 20:00 99.3 119 21 147/70 98 I/O 07/27/16 07/27/16 07/27/16 07/28/16 07/28/16 07/28/16 07:00 15:00 23:00 07:00 15:00 23:00 Intake Total 0 ml 1124 ml 240 ml 720 ml 780 ml Output Total 1175 ml 0 ml 1150 ml Balance 0 ml -51 ml 240 ml 720 ml -370 ml Intake Oral 0 ml 240 ml 240 ml 720 ml IV Total 884 ml 780 ml Output Urine Total 325 ml 0 ml Stool Total 850 ml 1150 ml # Bowel Movements 0 0 0 Result Diagram: 07/28/16 1530 07/28/16 0900 Imaging Last Impressions Abdomen/Pelvis CT 07/24/16 0000 Signed Impressions: Service Date/Time: Monday, July 25, 2016 00:55 - CONCLUSION: 1. Interval development of extensive metastases. In addition to the bulky mass lesions in the urinary bladder bed, there are now large omental and mesenteric masses with central necrosis, retroperitoneal and anterior abdominal wall metastatic deposits with extensive metastasis to the liver. 2. Interval placement of bilateral nephrostomy tubes with decompression of the previously hydronephrotic kidneys. Preston Ewing MD ADDENDUM: COMPARISON: CT ABDOMEN & PELVIS W & W/O CONTRAST, July 13, 2016, 13:43. It has been brought to our attention that a more recent comparison study is available. The liver lesions are stable in number but they have increased in size. In particular a anterior right lobe liver lesion currently measures 2.2 x 1.9 cm compared to 1.8 x 1.4 cm previously. Also, there are 2 lesions near the dome that measure approximately 13 mm each that were previously barely visible measuring approximately 8 mm. No new liver lesion is identified. There is a extrahepatic mass abutting the right lobe of the liver that currently measures 7.8 x 4.1 cm compared to 5.6 x 3.4 cm previously. Throughout the abdomen and pelvis there are multiple peritoneal based masses that have also increased in size. In particular the mass in the right lower quadrant in the iliac fossa measures 9.5 x 6.3 cm compared to 8.0 x 5.6 cm previously. Another index lesion in the left mid abdomen anteriorly measures 7.3 x 7.1 cm compared to 4.2 x 3.2 cm previously. Multiple pelvic soft tissue masses are present and these have also increased in size. In the left inferior pelvis a mass currently measures 7.0 x 5.4 cm compared to 4.6 x 4.9 cm previously. Please see above for description of the remaining findings. IMPRESSION: Comparison was made to the more recent prior examination dated 07/13/2016. As described above, the multiple liver lesions and solid masses within the abdomen and pelvis have increased in size. Index measurements are given above. Findings are indicative of interval progression of disease. Ochoa Roberson MD Nephrostomy 07/22/16 0000 Signed Impressions: Service Date/Time: Friday, July 22, 2016 09:43 - CONCLUSION: Uncomplicated right nephrostomy tube placement as above. The collecting system is grossly dilated. The urine was turbid and therefore sent for microbiological evaluation. Several days of decompression can be performed and then attempts at placement of ureteral stent with extension through the ileal conduit stoma. I spoke with Dr. Lee concerning this. Jesus Perez Jr., MD Renal Scan w/Medication NM 07/20/16 0000 Signed Impressions: Service Date/Time: Wednesday, July 20, 2016 15:34 - CONCLUSION: High grade obstruction on the right with partial obstruction on the left. Abdullahi Dos Santos MD Chest X-Ray 07/19/16 1457 Signed Impressions: Service Date/Time: Tuesday, July 19, 2016 15:14 - CONCLUSION: 1. The Uslyna-t-Lvki in good position. 2. The lungs are clear. Salvatore Tolbert MD Objective Remarks GENERAL: Sitting up in bed. Appears comfortable. Alert. Oriented 3. SKIN: Warm and dry. HEAD: Normocephalic. EYES: No scleral icterus. No injection or drainage. NECK: Supple, trachea midline. No JVD. CARDIOVASCULAR: Regular rate and rhythm without murmurs, gallops, or rubs. RESPIRATORY: Breath sounds equal bilaterally. No accessory muscle use. GASTROINTESTINAL: Abdomen soft, nondistended. Ileal conduit right lower quadrant. No surrounding erythema. Abdomen nontender. diverting ileal conduit with 2J stents MUSCULOSKELETAL: No cyanosis, or edema. BACK: Nontender without obvious deformity. No CVA tenderness. A/P Assessment and Plan 50-year-old male with metastatic bladder cancer with bilateral ureteral obstruction status post bilateral placement of percutaneous nephrostomy tubes placed on 07/22/16. Antibiotics Zosyn 07/23ongoing Vancomycin07/19 - ongoing Cefepime. Discontinued. Microbiology 07/23 urine culture from right nephrostomy no growth to date 07/23 urinalysis from the left nephrostomy noninfectious appearing. 07/23. Blood cultures pending. No growth to date 07/19 urine culturepansensitive Flavimonas. 07/19 blood cultures. 1 of 4 staph hemolyticus Last fever: 07/28. 100.5 07/28/16 - -need fevers. Continue antibiotics. Although most likely from necrotic diastases. -Right leg with edema. Personally reviewed ultrasound, which does not appear to have any DVT. We'll await final read. Possibly from fluid overload versus dependent subcutaneous fluid from nephrostomy. We'll decrease fluids. -Acute kidney injury. Creatinine 1.6. Recent double-J stent placement. Repeat BMP. -Case management following for rehabilitation placement. //Severe Sepsis -patient continues with tachycardia, fevers, leukocytosis, complicated UTI. -07/23. Recurrent fever 103. Repeat blood, urinalysis from bilateral nephrostomy tubes. Fluids. Switch to Zosyn. There is a possibility that fevers are malignancy related, however we'll need to treat any infection first. -07/24. Discussed with infectious disease. CT abdomen ordered and pending. Appreciate assistance. Continue antibiotics as above. Follow-up cultures as above. -07/25. CT abdomen with necrotic metastasis. This could be causing fevers. We' ll continue antibiotics as above. Appreciate ID assistance. //Complicated urinary tract infection Patient with history of invasive bladder cancer, ileal conduit, recent CT scan does indicate hydronephrosis, hydroureters, status post bilateral nephrostomies on 07/22. Flavminonas pansensitive. -Due to recurrent fevers on 07/23. Start on Zosyn. Repeat cultures pending. As above. -07/24. Continued fevers. Continue antibiotics as above. Infectious disease following. Follow-up cultures. -07/25. Continued fevers. Discussed with infectious disease. Continue antibiotics as above. -07/26. Again with continued fevers. Continue antibiotics. -07/28. Again with fevers. Continue antibiotics. Will discuss with ID //Leukocytosis Secondary to infection Continue monitor. As above. //Invasive bladder cancer with hydronephrosis, hydroureters Bilateral hydronephrosis as below. Skein Straightener/oncologist has evaluated the patient and recommending palliative chemotherapy versus checkpoint inhibitor. Palliative care physician following patient for better pain control and management on methadone -he states that this pain regimen is adequate -Pain reasonably well controlled. Continue to monitor. -07/24. Will add oxyContin 20 mg twice daily, discontinue methadone. We'll increase OxyContin as necessary. -07/25. Increase OxyContin to 30 mg twice daily. transition Dilaudid to by mouth. -07/26. Pain much improved. Continue to monitor. -07/27. Pain controlled. Continue to monitor. -07/28. Pain continues controlled. //Acute on chronic anemia. -Low iron, low TIBC, high ferritin consistent with anemia of inflammation. -Hemoglobin down to 6.9 on 07/24 - likely dilutional secondary to fluid boluses. -No signs of bleeding. 07/24. Transfusion 1 unit. -Patient is rather weak. Hemoglobin 7.8. We'll order blood transfusion. Discussed risks and benefits with patient. //Right lower extremity edema. Acute on 07/28. Patient says started on 07/27. Ultrasound to rule out DVT. I personally reviewed the ultrasound, and all veins appeared compressible. Will await final read //Bilateral hydronephrosis. -Renal scan confirmed high-grade obstruction on the right, partial obstruction of the left -Underwent bilateral. Urology placed bilateral nephrostomy tubes 07/22. -07/27 IR placed bilateral double-J stents. Continue to monitor renal function. //Hypokalemia. Acute. Mild. Replace as necessary. Monitor. //DVT prophylaxis Sequential compression devices, anticoagulation on hold due to anemia. DO NOT RESUSCITATE CODE STATUS. Discharge Planning Ongoing sepsis versus fevers from malignancy.continues on IV antibiotics. -Titrating pain medications. -weak. PT/OT consult. -patient likely benefit from inpatient rehabilitation.appreciate case management assistance. Ajay Aceves MD Jul 28, 2016 17:16
[2016-07-28 18:18] LABS: BICARBONATE 26.3 MEQ/L (21.0-32.0); POTASSIUM 3.3 MEQ/L (3.5-5.1)
[2016-07-29] VITALS: BP 130/67; PULSE 110; RESP 22; TEMP 98.3; O2SAT 95
[2016-07-29] MEDS: HYDROmorphone HCL 4 MG TAB PO PRN ×4 (01:58→19:30)
[2016-07-29] MEDS: PIPERACIL-TAZO 3.375 GM PREMIX 50 ML IV SCH ×4 (01:59→21:36)
[2016-07-29 04:00] VITALS: BP 123/58; PULSE 119; RESP 24; TEMP 101; O2SAT 93
[2016-07-29] MEDS: LORazepam 0.5 MG TAB PO SCH ×3 (05:11→21:39)
[2016-07-29] MEDS: ONDANSETRON HCL 4 MG/2 ML VIAL IV PUSH PRN ×3 (05:14→19:30)
[2016-07-29] MEDS: ACETAMINOPHEN 325 MG TAB PO PRN (05:15)
[2016-07-29] MEDS: HYDROmorphone HCL 2 MG TAB PO PRN (05:15)
[2016-07-29 06:03] LABS: AUTOMATED NEUTROPHIL # 32.8 TH/MM3 (1.8-7.7); BASOPHIL # 0.2 TH/MM3 (0-0.2); BASOPHIL % 0.6 % (0.0-2.0); EOSINOPHIL # 0.7 TH/MM3 (0-0.4); HEMATOCRIT 26.1 % (39.0-51.0); LYMPH % 3.2 % (9.0-44.0); LYMPHOCYTE # 1.2 TH/MM3 (1.0-4.8); MEAN CORPUSCULAR HEMOGLOBIN 30.2 PG (27.0-34.0); MEAN CORPUSCULAR HGB CONC 33.2 % (32.0-36.0); MONO % 4.2 % (0.0-8.0); PLATELET COUNT 260 TH/MM3 (150-450); RED BLOOD COUNT 2.86 MIL/MM3 (4.50-5.90); WHITE BLOOD COUNT 36.5 TH/MM3 (4.0-11.0)
[2016-07-29] MEDS: SODIUM CHLOR 0.9% 1000 ML INJ 1,000 ML IV SCH ×2 (06:12→17:44)
[2016-07-29 06:16] LABS: HEMO FLAGS AUTO DIFF
[2016-07-29 06:49] LABS: BICARBONATE 23.4 MEQ/L (21.0-32.0); MAGNESIUM 1.8 MG/DL (1.5-2.5); POTASSIUM 3.5 MEQ/L (3.5-5.1)
[2016-07-29 08:00] VITALS: BP 110/56; PULSE 98; RESP 18; TEMP 98.4; O2SAT 95
[2016-07-29 08:01] LABS: BANDS 33 % (0-6); NEUTROPHIL # MANUAL DIFF 32.5 TH/MM3 (1.8-7.7); POLYS (SEG NEUTROPHILS) 56 % (16-70); WBC DIFF SAMPLE 100
[2016-07-29 08:02] LABS: PLATELET ESTIMATE SMEAR NORMAL (NORMAL); PLATELET MORPHOLOGY NORMAL (NORMAL); SCAN/DIFF FINAL DIFF MANUAL; TOXIC GRANULATION 2+ (NORMAL); TOXIC VACUOLATION PRESENT (NONE SEEN)
[2016-07-29] MEDS: ONDANSETRON ODT 4 MG TAB PO SCH (08:26)
[2016-07-29] MEDS: DOCUSATE SODIUM 50 MG/SENNA 8.6 MG TAB PO SCH ×2 (08:26→21:38)
[2016-07-29] MEDS: oxyCODONE HCL 10 MG CONTROLLED RELEASE TAB PO SCH ×2 (08:27→21:39)
[2016-07-29] MEDS: SODIUM CHLORIDE 0.9% FLUSH 5 ML FLUSH FLUSH SCH ×2 (08:28→21:39)
[2016-07-29] MEDS ORDERED: VANCOMYCIN INJ 1,250 MG in SODIUM CHLOR 0.9% 250 ML INJ 250 ML IV SCH (10:00)
--- NOTE | 2016-07-29 10:36 | HHI.PR ---
Subjective Remarks Pt seen and examined. Pain in controlled. Still with fever and elevated WBC. Creatinine up to 1.8. Objective Vital Signs Vital Signs Date Time Temp Pulse Resp B/P Pulse Ox O2 Delivery O2 Flow Rate FiO2 07/29/16 08:00 98.4 98 18 110/56 95 07/29/16 06:15 18 07/29/16 06:15 18 07/29/16 04:00 101.0 119 24 123/58 93 07/29/16 02:58 16 07/29/16 00:00 98.3 110 22 130/67 95 07/28/16 22:22 16 07/28/16 21:25 Room Air 07/28/16 20:00 97.7 94 20 126/68 97 07/28/16 16:00 94 Room Air 07/28/16 16:00 100.5 102 18 113/57 94 07/28/16 12:00 99.9 111 18 128/58 92 I/O 07/28/16 07/28/16 07/28/16 07/29/16 07/29/16 07/29/16 07:00 15:00 23:00 07:00 15:00 23:00 Intake Total 240 ml 720 ml 1020 ml Output Total 0 ml 1650 ml 500 ml Balance 240 ml 720 ml -630 ml -500 ml Intake Oral 240 ml 720 ml 240 ml IV Total 780 ml Output Urine Total 0 ml 500 ml 500 ml Stool Total 1150 ml # Bowel Movements 0 0 Result Diagram: 07/29/16 0525 07/29/16 0525 Imaging Last 48 hours Impressions Renal Scan w/Medication NM 07/20/16 0000 Signed Impressions: Service Date/Time: Wednesday, July 20, 2016 15:34 - CONCLUSION: High grade obstruction on the right with partial obstruction on the left. Abdullahi Dos Santos MD Chest X-Ray 07/19/16 2857 Signed Impressions: Service Date/Time: Tuesday, July 19, 2016 15:14 - CONCLUSION: 1. The Vdywwq-m-Pbjw in good position. 2. The lungs are clear. Salvatore Tolbert MD Objective Remarks Abd:soft,nt,nd B/L PCNT's in place and draining well. 07/25/16 Abd:soft,nt,nd B/L PCNT's in place and draining well. 07/27/15 Abdomen soft nontender nondistended Bilateral percutaneous nephrostomy tubes draining clear urine 07/27 Abd:soft,nt,nd PCNT's in place and draining clear urine 07/28 Abd:soft,nt,nd Conduit draining clear urine 07/29 Abd:soft,nt,nd Conduit draining clear urine Stents in place Assessment and Plan Problem List: (1) Urinary tract infection ICD Code: N39.0 Status: Acute (2) Bilateral hydronephrosis ICD Code: N13.30 Status: Chronic (3) Invasive carcinoma of urinary bladder ICD Code: C67.9 Status: Chronic Assessment and Plan -Plan for Bilateral nephrostomy tubes today -Will discuss with and defer further care as patient is known to him -Please call with questions 07/22/16 50 y.o male with metastatic bladder cancer with b/l ureteral obstruction s/p b/ l placement of PCNT's Check cultures Continue ABX Will need internalization with b/l JJ stents by IR next week. 07/25/16 50 y.o male with metastatic bladder cancer with b/l ureteral obstruction s/p b/ l placement of PCNT's CT shows worsen evidence of metastatics Maintain b/l PCNT's for now. May not change to internalized stents as stents will fail with increase in bulky disease. Continue ABX Pain control 07/26/16 50-year-old male with metastatic bladder cancer with bilateral ureteral obstruction status post placement of bilateral percutaneous nephrostomy tubes with fever Continue antibiotic coverage per ID Fever may also be a result due to tumor expansion based on recent CT findings. 07/27 50-year-old male with metastatic bladder cancer with bilateral ureteral obstruction status post placement of bilateral percutaneous nephrostomy tubes. For internalization of b/l PCNT's today Continue present management. 07/28 50-year-old male with metastatic bladder cancer with bilateral ureteral obstruction status post placement of JJ stents Creatinine up to 1.6. Continue IVF Right LE edema; will order US to r/o DVT Continue ABX per ID 07/29 50-year-old male with metastatic bladder cancer with bilateral ureteral obstruction status post placement of JJ stents Creatinine up to 1.89. Right LE edema: No evidence of DVT on US Continue ABX per ID Placement post hospitalization: d/w case management Chemotherapy as outpt Eulogio Lee DO Jul 29, 2016 10:36
[2016-07-29 12:00] VITALS: BP 117/63; PULSE 82; RESP 18; TEMP 98; O2SAT 95
--- NOTE | 2016-07-29 14:13 | PD.ONC.PN ---
Subjective Subjective Remarks Tmax overnight 100.0. Pt resting in bed with mother at bedside. He is frustrated that they cannot find rehab placement for him. He states his pain is much better controlled today. Objective Data Date Time Temp Pulse Resp B/P Pulse Ox O2 Delivery O2 Flow Rate FiO2 07/29/16 12:00 98.0 82 18 117/63 95 07/29/16 08:00 98.4 98 18 110/56 95 07/29/16 06:15 18 07/29/16 06:15 18 07/29/16 04:00 101.0 119 24 123/58 93 07/29/16 02:58 16 07/29/16 00:00 98.3 110 22 130/67 95 07/28/16 22:22 16 07/28/16 21:25 Room Air 07/28/16 20:00 97.7 94 20 126/68 97 07/28/16 16:00 94 Room Air 07/28/16 16:00 100.5 102 18 113/57 94 Result Diagram: 07/29/16 0525 07/29/16 0525 Laboratory Results Laboratory Tests Test 07/28/16 07/28/16 07/29/16 15:30 17:50 05:25 White Blood Count 35.1 TH/MM3 36.5 TH/MM3 Red Blood Count 2.73 MIL/MM3 2.86 MIL/MM3 Hemoglobin 8.3 GM/DL 8.7 GM/DL Hematocrit 24.8 % 26.1 % Mean Corpuscular Volume 90.8 FL 91.0 FL Mean Corpuscular Hemoglobin 30.4 PG 30.2 PG Mean Corpuscular Hemoglobin 33.5 % 33.2 % Concent Red Cell Distribution Width 15.5 % 16.0 % Platelet Count 240 TH/MM3 260 TH/MM3 Mean Platelet Volume 7.6 FL 7.9 FL Neutrophils (%) (Auto) 91.0 % 90.0 % Lymphocytes (%) (Auto) 2.5 % 3.2 % Monocytes (%) (Auto) 4.3 % 4.2 % Eosinophils (%) (Auto) 1.8 % 2.0 % Basophils (%) (Auto) 0.4 % 0.6 % Neutrophils # (Auto) 32.0 TH/MM3 32.8 TH/MM3 Lymphocytes # (Auto) 0.9 TH/MM3 1.2 TH/MM3 Monocytes # (Auto) 1.5 TH/MM3 1.5 TH/MM3 Eosinophils # (Auto) 0.6 TH/MM3 0.7 TH/MM3 Basophils # (Auto) 0.1 TH/MM3 0.2 TH/MM3 CBC Comment AUTO DIFF AUTO DIFF Differential Total Cells 100 100 Counted Neutrophils % (Manual) 67 % 56 % Band Neutrophils % 22 % 33 % Lymphocytes % 5 % 5 % Monocytes % 6 % 6 % Neutrophils # (Manual) 31.2 TH/MM3 32.5 TH/MM3 Differential Comment FINAL DIFF FINAL DIFF MANUAL MANUAL Toxic Granulation 1+ 2+ Platelet Estimate NORMAL NORMAL Platelet Morphology Comment NORMAL NORMAL Random Vancomycin Level 20.8 COMMENT 5.3 COMMENT Sodium Level 143 MEQ/L 143 MEQ/L Potassium Level 3.3 MEQ/L 3.5 MEQ/L Chloride Level 106 MEQ/L 108 MEQ/L Carbon Dioxide Level 26.3 MEQ/L 23.4 MEQ/L Anion Gap 11 MEQ/L 12 MEQ/L Blood Urea Nitrogen 10 MG/DL 12 MG/DL Creatinine 1.81 MG/DL 1.89 MG/DL Estimat Glomerular Filtration 40 ML/MIN 38 ML/MIN Rate Random Glucose 127 MG/DL 80 MG/DL Calcium Level 8.0 MG/DL 8.3 MG/DL Toxic Vacuolation PRESENT Phosphorus Level 2.6 MG/DL Magnesium Level 1.8 MG/DL Albumin 1.4 GM/DL Culture Results Microbiology Date/Time Procedure Status Source Growth 07/29/16 05:25 Aerobic Blood Culture Received Blood Peripheral Pending 07/29/16 05:25 Anaerobic Blood Culture Received Blood Peripheral Pending 07/29/16 05:28 Aerobic Blood Culture Received Blood Peripheral Pending 07/29/16 05:28 Anaerobic Blood Culture Received Blood Peripheral Pending 07/29/16 13:35 Urine Culture Received Urine Clean Catch Pending Administered Medications Medications (Trade) Dose Ordered Sig/Ambika Route PRN Reason Start Time Stop Time Status Last Admin Dose Admin Sodium Chloride (NS 1000 ml Inj) 1,000 ml @ 100 mls/hr Q10H IV 07/19/16 17:44 07/29/16 06:12 IV Flush (NS Flush) 2 ml UNSCH PRN FLUSH FLUSH AFTER USING IV ACCESS 07/19/16 17:45 07/20/16 05:58 IV Flush (NS Flush) 2 ml BID FLUSH 07/19/16 21:00 07/26/16 20:46 Acetaminophen (Tylenol) 650 mg Q4H PRN PO fever >101 07/19/16 20:00 07/29/16 05:15 Citalopram Hydrobromide (CeleXA) 20 mg DAILY PO 07/20/16 13:00 Hold 07/20/16 13:00 Lorazepam (Ativan) 0.5 mg Q8HR PO 07/20/16 14:00 07/29/16 05:11 Lorazepam (Ativan) 1 mg Q6H PRN PO anxiety/sob #6-10 07/20/16 13:00 07/22/16 00:36 Hydromorphone HCl (Dilaudid Pf Inj) 0.75 mg Q3HR PRN IV PUSH BREAKTHROUGH PAIN 07/20/16 13:45 07/26/16 00:06 Ondansetron HCl (Zofran Inj) 4 mg Q6HR PRN IV PUSH NAUSEA OR VOMITING 07/23/16 11:45 07/29/16 12:16 Oxycodone HCl 30 mg 30 mg Q12HR PO 07/25/16 21:00 07/29/16 08:27 Piperacillin Sod/ Tazobactam Sod (Zosyn 3.375 Gm Premix) 50 ml @ 100 mls/hr Q6H IV 07/25/16 20:00 07/29/16 08:26 Hydromorphone HCl (Dilaudid) 2 mg Q4H PRN PO PAIN SCALE 1 TO 5 07/25/16 19:45 07/29/16 05:15 Hydromorphone HCl (Dilaudid) 4 mg Q4H PRN PO PAIN SCALE 6 TO 10 07/25/16 19:45 07/29/16 10:03 Senna/Docusate Sodium 1 tab 1 tab BID PO 07/25/16 21:00 07/28/16 08:49 Vancomycin HCl/ Sodium Chloride (Vancomycin Inj/ NS 250 ml Inj) 262.5 ml @ 262.5 mls/ hr Q24H IV 07/29/16 10:00 07/29/16 10:04 Objective Remarks GENERAL: Weak appearing middle aged male lying in bed no distress. SKIN: Warm and dry. Somewhat pale appearing. HEAD: Normocephalic. EYES: No injection or drainage. NECK: Supple, trachea midline. CARDIOVASCULAR: +S1/S2. No murmur. RESPIRATORY: Lungs clear anteriorly. No accessory muscle use. GENITOURINARY: Urostomy in place draining clear yellow urine to bedside bag. Stoma pink. GASTROINTESTINAL: Lower abdominal incision well healed. EXTREMITIES: No cyanosis. RLE mildly edematous. NEUROLOGICAL: No obvious focal deficit. Awake, alert, and oriented x3. Assessment/Plan Problem List: (1) Invasive carcinoma of urinary bladder Status: Chronic Plan: 07/29/16: Plan for immunotherapy as outpatient. Case mgmt working on discharge planning as pt feels his mother will not be able to care for him. He may have to go home with home health due to lack of insurance. Discussed at bedside with Dr. Lee. Bilateral LE US shows no DVT Concern that fevers and due to Tumor Fevers, persistent associated with Leukocytosis. Clinical decline, with worsen renal function, new lower extremity edema, leukocytosis no response to antibiotic. Plan continue to be to start immunotherapy as out patient. Transfuse for Hgb less than 7.5. Post palliative surgery for hematuria, pt suspected to have metastatic disease and recurrence. Course complicated by Gm neg trinity uremia, ? gm + cocci bacteremia, significant leukocytosis, and hydronephrosis/obstruction. Need for acute events to resolve before cancer directed therapy could be initiated such as check point inhibitor as out pt. Assessment 50 y/o man with muscle invasive bladder cancer, with progression to metastatic disease admitted for urosepsis/gm neg trinity. Attending Statement c/o weakness, difficult to waalk poor appetite. await placement. The exam, history, and the medical decision-making described in the above note were completed with the assistance of the mid-level provider. I reviewed and agree with the findings presented. I attest that I had a [id number]-[id number] encounter with the patient on the same day, and personally performed and documented my assessment and findings in the medical record. Hilda Hickman Jul 29, 2016 14:13 Heidy Stallworth MD Jul 29, 2016 16:25
[2016-07-29 16:00] VITALS: BP 119/61; PULSE 110; RESP 18; TEMP 98.5; O2SAT 98
[2016-07-29 16:32] LABS: BACTERIA, URINE RARE /hpf; BLOOD, URINE MOD (NEG); GLUCOSE,URINE NEG (NEG); GRANULAR CAST, URINE 2 /lpf; KETONE, URINE NEG (NEG); NITRITE,URINE NEG (NEG); SQUAMOUS EPITHELIAL CELL URINE <1 /hpf (0-5); URINE COLOR YELLOW (YELLW/STRAW)
[2016-07-29 16:34] LABS: COMMENT (UR) CATH-CULTURE IND; CULTURE IF INDICATED CATH CULTURE IND
[2016-07-29 20:00] VITALS: BP 119/59; PULSE 115; RESP 20; TEMP 99.6; O2SAT 94
--- NOTE | 2016-07-29 20:41 | HHI.PR ---
Subjective Remarks patient seen today around noon. Patient reports poor appetite. Denies any chest pain or shortness of breath. Says pain is controlled. Objective Vital Signs Date Time Temp Pulse Resp B/P Pulse Ox O2 Delivery O2 Flow Rate FiO2 07/29/16 16:00 98.5 110 18 119/61 98 07/29/16 12:00 98.0 82 18 117/63 95 07/29/16 08:00 Room Air 07/29/16 08:00 98.4 98 18 110/56 95 07/29/16 06:15 18 07/29/16 06:15 18 07/29/16 04:00 101.0 119 24 123/58 93 07/29/16 02:58 16 07/29/16 00:00 98.3 110 22 130/67 95 07/28/16 22:22 16 07/28/16 21:25 Room Air I/O 07/28/16 07/28/16 07/28/16 07/29/16 07/29/16 07/29/16 07:00 15:00 23:00 07:00 15:00 23:00 Intake Total 240 ml 720 ml 1020 ml 480 ml Output Total 0 ml 1650 ml 500 ml 600 ml Balance 240 ml 720 ml -630 ml -500 ml -120 ml Intake Oral 240 ml 720 ml 240 ml 480 ml IV Total 780 ml Output Urine Total 0 ml 500 ml 500 ml 600 ml Stool Total 1150 ml # Bowel Movements 0 0 0 Result Diagram: 07/29/1625 07/29/16 05 Objective Remarks GENERAL: Sitting up in bed. Appears comfortable. Alert. Oriented 3.exam unchanged. SKIN: Warm and dry. HEAD: Normocephalic. EYES: No scleral icterus. No injection or drainage. NECK: Supple, trachea midline. No JVD. CARDIOVASCULAR: Regular rate and rhythm without murmurs, gallops, or rubs. RESPIRATORY: Breath sounds equal bilaterally. No accessory muscle use. GASTROINTESTINAL: Abdomen soft, nondistended. Ileal conduit right lower quadrant. No surrounding erythema. Abdomen nontender. diverting ileal conduit with 2J stents MUSCULOSKELETAL: No cyanosis, or edema. BACK: Nontender without obvious deformity. No CVA tenderness. A/P Assessment and Plan 50-year-old male with metastatic bladder cancer with bilateral ureteral obstruction status post bilateral placement of percutaneous nephrostomy tubes placed on 07/22/16. Subsequent gram-negative sepsis, however fevers and white count continued to increase despite antibiotics. Patient found to have progression of cancer, necrotic metastasis, which can cause fevers. Antibiotics Zosyn 07/23ongoing Vancomycin07/19 -discontinued 07/29. No indication of gram-positive infection. Cefepime. Discontinued. Microbiology 07/29 urine and blood cultures pending. 07/23 urine culture from right nephrostomy no growth to date 07/23 urinalysis from the left nephrostomy noninfectious appearing. 07/23. Blood cultures pending. No growth to date 07/19 urine culturepansensitive Flavimonas. 07/19 blood cultures. 1 of 4 staph hemolyticus Last fever: 07/29 07/29/16 - //Still with fevers. At this point, is likely secondary to necrotic metastasis. Repeat urine and blood cultures 07/29. //DENA - creatinine 1.8. Occurred on 07/28 after double-J stent placement. BUN/ creatinine ratio would indicate obstruction, Fena 1/5% .-Discontinue vancomycin due to DENA. Kidney ultrasound pending. //Right leg with edema. No evidence of DVT on ultrasound. //Difficult discharge. Does not have insurance. Mother cannot take care of him at home without home health. Patient can try palliative chemotherapy, however with need to be discharged start this. Appreciate case management assistance. //Malnutrition. Dietary consult //Severe Sepsis -patient continues with tachycardia, fevers, leukocytosis, complicated UTI. -07/23. Recurrent fever 103. Repeat blood, urinalysis from bilateral nephrostomy tubes. Fluids. Switch to Zosyn. There is a possibility that fevers are malignancy related, however we'll need to treat any infection first. -07/24. Discussed with infectious disease. CT abdomen ordered and pending. Appreciate assistance. Continue antibiotics as above. Follow-up cultures as above. -07/25. CT abdomen with necrotic metastasis. This could be causing fevers. We' ll continue antibiotics as above. Appreciate ID assistance. //Complicated urinary tract infection //Continued fevers Patient with history of invasive bladder cancer, ileal conduit, recent CT scan does indicate hydronephrosis, hydroureters, status post bilateral nephrostomies on 07/22. Flavminonas pansensitive. -Due to recurrent fevers on 07/23. Start on Zosyn. Repeat cultures pending. As above. -07/24. Continued fevers. Continue antibiotics as above. Infectious disease following. Follow-up cultures. -07/25. Continued fevers. Discussed with infectious disease. Continue antibiotics as above. -07/26. Again with continued fevers. Continue antibiotics. -07/28. Again with fevers. Continue antibiotics. Will discuss with ID -07/29. Repeat blood and urine cultures. //Leukocytosis Secondary to infection Continue monitor. As above. //Invasive bladder cancer with hydronephrosis, hydroureters Bilateral hydronephrosis as below. Registered Dietitian/oncologist has evaluated the patient and recommending palliative chemotherapy versus checkpoint inhibitor. Palliative care physician following patient for better pain control and management on methadone -he states that this pain regimen is adequate -Pain reasonably well controlled. Continue to monitor. -07/24. Will add oxyContin 20 mg twice daily, discontinue methadone. We'll increase OxyContin as necessary. -07/25. Increase OxyContin to 30 mg twice daily. transition Dilaudid to by mouth. -07/26. Pain much improved. Continue to monitor. -07/27. Pain controlled. Continue to monitor. -07/29. Pain continues controlled. //Acute on chronic anemia. -Low iron, low TIBC, high ferritin consistent with anemia of inflammation. -Hemoglobin down to 6.9 on 07/24 - likely dilutional secondary to fluid boluses. -No signs of bleeding. 07/24. Transfusion 1 unit. -07/27. Patient transfused 2 units for symptomatic anemia. 07/29. Improvement. Hemoglobin 7.8==>8.3==>8.7. Monitor. //Right lower extremity edema. Acute on 07/28. Patient says started on 07/27. -Ultrasound negative for DVT. //Bilateral hydronephrosis. -Admission Renal scan confirmed high-grade obstruction on the right, partial obstruction of the left - Urology placed bilateral nephrostomy tubes 07/22. -07/27 IR placed bilateral double-J stents. Continue to monitor renal function. -07/29 DENA creatinine 1.0-->1.8. Occurred on 07/28 after double-J stent placement. BUN/creatinine ratio would indicate obstruction, Fena 1/5% .- Discontinue vancomycin due to DENA. Kidney ultrasound pending. If continues elevated, could discuss with urology to measure urine output separately from stents. //Hypokalemia. Acute. Mild. Replace as necessary. Monitor. //DVT prophylaxis Sequential compression devices, anticoagulation on hold due to anemia. DO NOT RESUSCITATE CODE STATUS. Discharge Planning Ongoing sepsis versus fevers from malignancy.continues on IV antibiotics. -Titrating pain medications. -weak. PT/OT consult. -patient likely benefit from inpatient rehabilitation.appreciate case management assistance. Ajay Aceves MD Jul 29, 2016 20:41
[2016-07-30] VITALS: BP_SYST 122; BP_SYST 144; BP_DIAS 62; BP_DIAS 80; PULSE 119; PULSE 93; RESP 16; RESP 20; TEMP 98.1; TEMP 99.4; O2SAT 93; O2SAT 96
[2016-07-30] MEDS: PIPERACIL-TAZO 3.375 GM PREMIX 50 ML IV SCH ×4 (01:10→20:39)
[2016-07-30 04:00] VITALS: BP 122/70; PULSE 86; RESP 20; TEMP 97.7; O2SAT 98
[2016-07-30] MEDS: SODIUM CHLOR 0.9% 1000 ML INJ 1,000 ML IV SCH ×3 (05:42→23:44)
[2016-07-30] MEDS: HYDROmorphone HCL 2 MG TAB PO PRN (05:42)
[2016-07-30] MEDS: LORazepam 0.5 MG TAB PO SCH ×3 (05:42→20:38)
[2016-07-30] MEDS: ONDANSETRON HCL 4 MG/2 ML VIAL IV PUSH PRN ×2 (05:42→19:43)
[2016-07-30 07:03] LABS: AUTOMATED NEUTROPHIL # 31.9 TH/MM3 (1.8-7.7); BASOPHIL % 0.1 % (0.0-2.0); EOSINOPHIL # 0.8 TH/MM3 (0-0.4); EOSINOPHIL % 2.2 % (0.0-4.0); HEMATOCRIT 28.1 % (39.0-51.0); LYMPH % 3.9 % (9.0-44.0); LYMPHOCYTE # 1.4 TH/MM3 (1.0-4.8); MEAN CELL VOLUME 91.6 FL (80.0-100.0); MEAN CORPUSCULAR HEMOGLOBIN 30.2 PG (27.0-34.0); MONO % 3.7 % (0.0-8.0); NEUT % 90.1 % (16.0-70.0); PLATELET COUNT 250 TH/MM3 (150-450); RED BLOOD COUNT 3.06 MIL/MM3 (4.50-5.90); RED CELL DISTRIBUTION WIDTH 15.7 % (11.6-17.2); WHITE BLOOD COUNT 35.4 TH/MM3 (4.0-11.0)
[2016-07-30 07:11] LABS: HEMO FLAGS AUTO DIFF
[2016-07-30 07:35] LABS: BICARBONATE 24.2 MEQ/L (21.0-32.0); POTASSIUM 3.4 MEQ/L (3.5-5.1)
[2016-07-30 08:00] VITALS: BP 130/61; PULSE 108; RESP 18; TEMP 98.6; O2SAT 98
[2016-07-30] MEDS: oxyCODONE HCL 10 MG CONTROLLED RELEASE TAB PO SCH ×2 (09:00→20:39)
[2016-07-30] MEDS: DOCUSATE SODIUM 50 MG/SENNA 8.6 MG TAB PO SCH ×2 (09:00→20:39)
[2016-07-30] MEDS: ONDANSETRON ODT 4 MG TAB PO SCH (09:01)
[2016-07-30] MEDS: SODIUM CHLORIDE 0.9% FLUSH 5 ML FLUSH FLUSH SCH ×2 (09:02→20:41)
[2016-07-30 09:36] LABS: BANDS 32 % (0-6); BASOPHILS 1 % (0-2); EOSINOPHILS 1 % (0-4); NEUTROPHIL # MANUAL DIFF 29.7 TH/MM3 (1.8-7.7); POLYS (SEG NEUTROPHILS) 52 % (16-70); WBC DIFF SAMPLE 100
[2016-07-30 09:37] LABS: PLATELET ESTIMATE SMEAR NORMAL (NORMAL); PLATELET MORPHOLOGY NORMAL (NORMAL); SCAN/DIFF FINAL DIFF MANUAL; TOXIC GRANULATION 1+ (NORMAL)
--- NOTE | 2016-07-30 09:40 | PD.ONC.PN ---
Subjective Subjective Remarks Afebrile overnight. Patient has bad cough today, which he states has been persistent for some time. He feels weak overall. Objective Data Date Time Temp Pulse Resp B/P Pulse Ox O2 Delivery O2 Flow Rate FiO2 07/30/16 08:00 98.6 108 18 130/61 98 07/30/16 04:00 97.7 86 20 122/70 98 07/30/16 00:00 98.1 93 16 122/62 96 07/29/16 20:00 99.6 115 20 119/59 94 07/29/16 20:00 Room Air 07/29/16 16:00 98.5 110 18 119/61 98 07/29/16 12:00 98.0 82 18 117/63 95 07/30/16 07/30/16 07/30/16 07:00 15:00 23:00 Intake Total 480 ml Output Total 250 ml Balance 230 ml Result Diagram: 07/30/16 0550 07/30/16 0550 Laboratory Results Laboratory Tests Test 07/29/16 07/30/16 13:35 05:50 Urine Color YELLOW Urine Turbidity CLEAR Urine pH 6.0 Urine Specific [place] 1.015 Urine Protein 30 mg/dL Urine Glucose (UA) NEG mg/dL Urine Ketones NEG mg/dL Urine Occult Blood MOD Urine Nitrite NEG Urine Bilirubin NEG Urine Urobilinogen LESS THAN 2.0 MG/DL Urine Leukocyte Esterase TRACE Urine RBC 3 /hpf Urine WBC 1 /hpf Urine Squamous Epithelial <1 /hpf Cells Urine Bacteria RARE /hpf Urine Granular Casts 2 /lpf Microscopic Urinalysis Comment CATH-CULTURE IND Urine Random Creatinine 73.8 MG/DL Urine Random Sodium 84 MEQ/L White Blood Count 35.4 TH/MM3 Red Blood Count 3.06 MIL/MM3 Hemoglobin 9.3 GM/DL Hematocrit 28.1 % Mean Corpuscular Volume 91.6 FL Mean Corpuscular Hemoglobin 30.2 PG Mean Corpuscular Hemoglobin 33.0 % Concent Red Cell Distribution Width 15.7 % Platelet Count 250 TH/MM3 Mean Platelet Volume 7.9 FL Neutrophils (%) (Auto) 90.1 % Lymphocytes (%) (Auto) 3.9 % Monocytes (%) (Auto) 3.7 % Eosinophils (%) (Auto) 2.2 % Basophils (%) (Auto) 0.1 % Neutrophils # (Auto) 31.9 TH/MM3 Lymphocytes # (Auto) 1.4 TH/MM3 Monocytes # (Auto) 1.3 TH/MM3 Eosinophils # (Auto) 0.8 TH/MM3 Basophils # (Auto) 0.0 TH/MM3 CBC Comment AUTO DIFF Sodium Level 143 MEQ/L Potassium Level 3.4 MEQ/L Chloride Level 106 MEQ/L Carbon Dioxide Level 24.2 MEQ/L Anion Gap 13 MEQ/L Blood Urea Nitrogen 16 MG/DL Creatinine 2.13 MG/DL Estimat Glomerular Filtration 33 ML/MIN Rate Random Glucose 92 MG/DL Calcium Level 8.3 MG/DL Culture Results Microbiology Date/Time Procedure Status Source Growth 07/29/16 05:25 Aerobic Blood Culture Received Blood Peripheral Pending 07/29/16 05:25 Anaerobic Blood Culture Received Blood Peripheral Pending 07/29/16 05:28 Aerobic Blood Culture Received Blood Peripheral Pending 07/29/16 05:28 Anaerobic Blood Culture Received Blood Peripheral Pending 07/29/16 13:35 Urine Culture Received Urine Clean Catch Pending 07/29/16 13:35 Cancelled Urine Clean Catch Administered Medications Medications (Trade) Dose Ordered Sig/Ambika Route PRN Reason Start Time Stop Time Status Last Admin Dose Admin Sodium Chloride (NS 1000 ml Inj) 1,000 ml @ 100 mls/hr Q10H IV 07/19/16 17:44 07/30/16 05:42 IV Flush (NS Flush) 2 ml UNSCH PRN FLUSH FLUSH AFTER USING IV ACCESS 07/19/16 17:45 07/20/16 05:58 IV Flush (NS Flush) 2 ml BID FLUSH 07/19/16 21:00 07/30/16 09:02 Acetaminophen (Tylenol) 650 mg Q4H PRN PO fever >101 07/19/16 20:00 07/29/16 05:15 Citalopram Hydrobromide (CeleXA) 20 mg DAILY PO 07/20/16 13:00 Hold 07/20/16 13:00 Lorazepam (Ativan) 0.5 mg Q8HR PO 07/20/16 14:00 07/30/16 05:42 Lorazepam (Ativan) 1 mg Q6H PRN PO anxiety/sob #6-10 07/20/16 13:00 07/22/16 00:36 Hydromorphone HCl (Dilaudid Pf Inj) 0.75 mg Q3HR PRN IV PUSH BREAKTHROUGH PAIN 07/20/16 13:45 07/26/16 00:06 Ondansetron HCl (Zofran Inj) 4 mg Q6HR PRN IV PUSH NAUSEA OR VOMITING 07/23/16 11:45 07/30/16 05:42 Oxycodone HCl 30 mg 30 mg Q12HR PO 07/25/16 21:00 07/30/16 09:00 Piperacillin Sod/ Tazobactam Sod (Zosyn 3.375 Gm Premix) 50 ml @ 100 mls/hr Q6H IV 07/25/16 20:00 07/30/16 09:01 Hydromorphone HCl (Dilaudid) 2 mg Q4H PRN PO PAIN SCALE 1 TO 5 07/25/16 19:45 07/30/16 05:42 Hydromorphone HCl (Dilaudid) 4 mg Q4H PRN PO PAIN SCALE 6 TO 10 07/25/16 19:45 07/29/16 19:30 Senna/Docusate Sodium (Juanita-Colace) 1 tab BID PO 07/25/16 21:00 07/30/16 09:00 Ondansetron HCl (Zofran Odt) 4 mg DAILY@08 PO 07/30/16 08:00 07/30/16 09:01 Objective Remarks GENERAL: Middle aged male, sleeping on approach. persistent cough. SKIN: Warm and dry. HEAD: Normocephalic. EYES: No injection or drainage. NECK: Supple, trachea midline. CARDIOVASCULAR: Regular rate and rhythm RESPIRATORY: Breath sounds equal bilaterally. No accessory muscle use. GASTROINTESTINAL: Abdomen soft, non-tender, nondistended. urostomy bag in place , draining yellow urine. EXTREMITIES: No cyanosis NEUROLOGICAL: awake but lethargic. normal speech. Assessment/Plan Problem List: (1) Invasive carcinoma of urinary bladder Status: Chronic Plan: --followed by palliative care. may not be able to get outpatient checkpoint inhibitor due to worsening renal function, declining performance status --fevers likely due to tumor burden (tumor fever), persistent associated with Leukocytosis. --Clinical decline, with worsen renal function, new lower extremity edema, leukocytosis no response to antibiotic. History: --February 2016: diagnosed with bladder cancer. juanita-operative chemotherapy attempted. --May 2016: bladder resection. final tumor measured 8 x 7.5 x 5.5 cm. The tumor invades through the muscularis propria into the perivesicular adipose tissue microscopically and macroscopically. The margins were involved by invasive carcinoma at the anterior soft tissue margin. The ureteral margins were negative for tumor. There were lymphatic and venous space invasions. It was a pathologic stage, T4b, N2 Mx. --Jun 2016: admitted with N/V. + BC. started on abx. BPNT placed and then later internalized. -July 2016: CT shows worsening disease Assessment 50 y/o man with muscle invasive bladder cancer, with progression to metastatic disease admitted for urosepsis/gm neg trinity. Plan 1. check chest x-ray for cough today. --CXR WNL, unable to obtain CTA d/t ARF , will obtain V/Q scan and start on prophylactic Lovenox. 2. continue abx per primary 3. monitor CBC 4. monitor bmp--renal function worsening, prognosis poor. will ask nurse to call urologist to see if anything further can be done about worsening renal function. Attending Statement The exam, history, and the medical decision-making described in the above note were completed with the assistance of the mid-level provider. I reviewed and agree with the findings presented. I attest that I had a [id number] encounter with the patient on the same day, and personally performed and documented my assessment and findings in the medical record. clinically doing worse High Disease burden Worsening Creatinine--? still obstructed//Urology to comment on whether obstructive uropathy can be addressed abdominal U/S Palliative care consult Tachycardic/r/o PTE---unable to complete CTA due to poor renal functions--get V/ Q scan Start prophy Lovenox d/w Jesika Monge Jul 30, 2016 09:40 Deonte Chamberlain MD Jul 30, 2016 13:18
--- NOTE | 2016-07-30 10:10 | RADRPT ---
EXAM DATE/TIME: 07/30/2016 09:48 [facility] COMPARISON: CHEST SINGLE AP, July 19, 2016, 15:14. INDICATIONS : Cough and congestion. MEDICAL HISTORY : Carcinoma, bladder. Hypertension SURGICAL HISTORY : Infusaport. ENCOUNTER: Initial ACUITY: 1 day PAIN SCORE: 0/10 LOCATION: Bilateral chest FINDINGS: There is a CT compatible [id number] on the right side. The tip overlies the SVC. The heart size is normal. The lungs are clear. CONCLUSION: No acute disease. Ochoa Oconnor MD on July 30, 2016 at 10:07 Board Certified Radiologist. This report was verified electronically.
[2016-07-30 12:00] VITALS: BP 122/58; PULSE 110; RESP 20; TEMP 100.3; O2SAT 95
--- NOTE | 2016-07-30 12:31 | HHI.IDPN ---
Subjective Subjective Remarks doing poorly co abd pain + nausea, vomiting poor po + 1 BM Leukocytsis still around 35 K Antibiotics zosyn vancomycin Allergies: Coded Allergies: No Known Allergies (Unverified , 07/19/16) Objective . Vital Signs Date Time Temp Pulse Resp B/P Pulse Ox O2 Delivery O2 Flow Rate FiO2 07/30/16 08:15 Room Air 07/30/16 08:00 98.6 108 18 130/61 98 07/30/16 04:00 97.7 86 20 122/70 98 07/30/16 00:00 98.1 93 16 122/62 96 07/29/16 20:00 99.6 115 20 119/59 94 07/29/16 20:00 Room Air 07/29/16 16:00 98.5 110 18 119/61 98 07/29/16 07/29/16 07/30/16 15:00 23:00 07:00 Intake Total 480 ml 725 ml 480 ml Output Total 600 ml 250 ml Balance -120 ml 725 ml 230 ml Intake Oral 480 ml 480 ml IV Total 725 ml Output Urine Total 600 ml 250 ml # Bowel Movements 0 1 . Laboratory Tests Test 07/28/16 07/29/16 07/30/16 15:30 05:25 05:50 White Blood Count 35.1 TH/MM3 36.5 TH/MM3 35.4 TH/MM3 Red Blood Count 2.73 MIL/MM3 2.86 MIL/MM3 3.06 MIL/MM3 Hemoglobin 8.3 GM/DL 8.7 GM/DL 9.3 GM/DL Hematocrit 24.8 % 26.1 % 28.1 % Mean Corpuscular Volume 90.8 FL 91.0 FL 91.6 FL Mean Corpuscular Hemoglobin 30.4 PG 30.2 PG 30.2 PG Mean Corpuscular Hemoglobin 33.5 % 33.2 % 33.0 % Concent Red Cell Distribution Width 15.5 % 16.0 % 15.7 % Platelet Count 240 TH/MM3 260 TH/MM3 250 TH/MM3 Mean Platelet Volume 7.6 FL 7.9 FL 7.9 FL Neutrophils (%) (Auto) 91.0 % 90.0 % 90.1 % Lymphocytes (%) (Auto) 2.5 % 3.2 % 3.9 % Monocytes (%) (Auto) 4.3 % 4.2 % 3.7 % Eosinophils (%) (Auto) 1.8 % 2.0 % 2.2 % Basophils (%) (Auto) 0.4 % 0.6 % 0.1 % Neutrophils # (Auto) 32.0 TH/MM3 32.8 TH/MM3 31.9 TH/MM3 Lymphocytes # (Auto) 0.9 TH/MM3 1.2 TH/MM3 1.4 TH/MM3 Monocytes # (Auto) 1.5 TH/MM3 1.5 TH/MM3 1.3 TH/MM3 Eosinophils # (Auto) 0.6 TH/MM3 0.7 TH/MM3 0.8 TH/MM3 Basophils # (Auto) 0.1 TH/MM3 0.2 TH/MM3 0.0 TH/MM3 CBC Comment AUTO DIFF AUTO DIFF AUTO DIFF Differential Total Cells 100 100 100 Counted Neutrophils % (Manual) 67 % 56 % 52 % Band Neutrophils % 22 % 33 % 32 % Lymphocytes % 5 % 5 % 7 % Monocytes % 6 % 6 % 7 % Neutrophils # (Manual) 31.2 TH/MM3 32.5 TH/MM3 29.7 TH/MM3 Differential Comment FINAL DIFF FINAL DIFF FINAL DIFF MANUAL MANUAL MANUAL Toxic Granulation 1+ 2+ 1+ Platelet Estimate NORMAL NORMAL NORMAL Platelet Morphology Comment NORMAL NORMAL NORMAL Toxic Vacuolation PRESENT Eosinophils % 1 % Basophils % 1 % Laboratory Tests Test 07/28/16 07/29/16 07/30/16 17:50 05:25 05:50 Sodium Level 143 MEQ/L 143 MEQ/L 143 MEQ/L Potassium Level 3.3 MEQ/L 3.5 MEQ/L 3.4 MEQ/L Chloride Level 106 MEQ/L 108 MEQ/L 106 MEQ/L Carbon Dioxide Level 26.3 MEQ/L 23.4 MEQ/L 24.2 MEQ/L Anion Gap 11 MEQ/L 12 MEQ/L 13 MEQ/L Blood Urea Nitrogen 10 MG/DL 12 MG/DL 16 MG/DL Creatinine 1.81 MG/DL 1.89 MG/DL 2.13 MG/DL Estimat Glomerular Filtration 40 ML/MIN 38 ML/MIN 33 ML/MIN Rate Random Glucose 127 MG/DL 80 MG/DL 92 MG/DL Calcium Level 8.0 MG/DL 8.3 MG/DL 8.3 MG/DL Phosphorus Level 2.6 MG/DL Magnesium Level 1.8 MG/DL Albumin 1.4 GM/DL Microbiology Date/Time Procedure Status Source Growth 07/29/16 05:25 Aerobic Blood Culture - Preliminary Resulted Blood Peripheral NO GROWTH IN 1 DAY 07/29/16 05:25 Anaerobic Blood Culture - Preliminary Resulted Blood Peripheral NO GROWTH IN 1 DAY 07/29/16 05:28 Aerobic Blood Culture - Preliminary Resulted Blood Peripheral NO GROWTH IN 1 DAY 07/29/16 05:28 Anaerobic Blood Culture - Preliminary Resulted Blood Peripheral NO GROWTH IN 1 DAY 07/29/16 13:35 Urine Culture - Preliminary Resulted Urine Clean Catch NO GROWTH IN 24 HOURS. 07/29/16 13:35 Cancelled Urine Clean Catch Imaging Last Impressions Lower Extremity Ultrasound 07/28/16 0000 Signed Impressions: Service Date/Time: July 11:27 - CONCLUSION: No evidence of DVT. Mario Calix MD Abdomen/Pelvis CT 07/24/16 0000 Signed Impressions: Service Date/Time: Monday, July 25, 2016 00:55 - CONCLUSION: 1. Interval development of extensive metastases. In addition to the bulky mass lesions in the urinary bladder bed, there are now large omental and mesenteric masses with central necrosis, retroperitoneal and anterior abdominal wall metastatic deposits with extensive metastasis to the liver. 2. Interval placement of bilateral nephrostomy tubes with decompression of the previously hydronephrotic kidneys. Preston Ewing MD ADDENDUM: COMPARISON: CT ABDOMEN & PELVIS W & W/O CONTRAST, July 13, 2016, 13:43. It has been brought to our attention that a more recent comparison study is available. The liver lesions are stable in number but they have increased in size. In particular a anterior right lobe liver lesion currently measures 2.2 x 1.9 cm compared to 1.8 x 1.4 cm previously. Also, there are 2 lesions near the dome that measure approximately 13 mm each that were previously barely visible measuring approximately 8 mm. No new liver lesion is identified. There is a extrahepatic mass abutting the right lobe of the liver that currently measures 7.8 x 4.1 cm compared to 5.6 x 3.4 cm previously. Throughout the abdomen and pelvis there are multiple peritoneal based masses that have also increased in size. In particular the mass in the right lower quadrant in the iliac fossa measures 9.5 x 6.3 cm compared to 8.0 x 5.6 cm previously. Another index lesion in the left mid abdomen anteriorly measures 7.3 x 7.1 cm compared to 4.2 x 3.2 cm previously. Multiple pelvic soft tissue masses are present and these have also increased in size. In the left inferior pelvis a mass currently measures 7.0 x 5.4 cm compared to 4.6 x 4.9 cm previously. Please see above for description of the remaining findings. IMPRESSION: Comparison was made to the more recent prior examination dated 07/13/2016. As described above, the multiple liver lesions and solid masses within the abdomen and pelvis have increased in size. Index measurements are given above. Findings are indicative of interval progression of disease. Ochoa Roberson MD Nephrostomy 07/22/16 0000 Signed Impressions: Service Date/Time: Friday, July 22, 2016 09:43 - CONCLUSION: Uncomplicated right nephrostomy tube placement as above. The collecting system is grossly dilated. The urine was turbid and therefore sent for microbiological evaluation. Several days of decompression can be performed and then attempts at placement of ureteral stent with extension through the ileal conduit stoma. I spoke with Dr. Lee concerning this. Jesus Perez Jr., MD Renal Scan w/Medication NM 07/20/16 0000 Signed Impressions: Service Date/Time: Wednesday, July 20, 2016 15:34 - CONCLUSION: High grade obstruction on the right with partial obstruction on the left. Abdullahi Dos Santos MD Chest X-Ray 07/19/16 1457 Signed Impressions: Service Date/Time: Tuesday, July 19, 2016 15:14 - CONCLUSION: 1. The [id number] in good position. 2. The lungs are clear. Salvatore Tolbert MD Physical Exam CONSTITUTIONAL/GENERAL: This is an adequately nourished patient, looks sick SKIN: No jaundice, rashes, or lesions. Skin temperature appropriate. + diaphoretic. EYES: Pupils equal and round and reactive. Extraocular motions intact. No scleral icterus. No injection or drainage. Fundi not examined. ENT: oral mucosae moist CARDIOVASCULAR: Regular rate and rhythm without murmurs, gallops, or rubs. No JVD. Peripheral pulses symmetric. RESPIRATORY/CHEST: Symmetric, unlabored respirations. Clear to auscultation. Breath sounds equal bilaterally. No wheezes, rales, or rhonchi. GASTROINTESTINAL: Abdomen soft, + markedly tender, mildly distended. No hepato- splenomegaly, or palpable masses. No guarding. Bowel sounds present. GENITOURINARY: Ileostomi in RLQ pink draining faily clear urine b/l nephrostomies in place with cloudy urine. MUSCULOSKELETAL: Extremities without clubbing, cyanosis, Pt developped significant 3-4+ soft pitting edema. NEUROLOGICAL: Awake and alert. Motor and sensory grossly within normal limits. Follows commands. Normal speech. Moves all extremities. Assessment & Plan Remarks Fever with no e/o infection sourse ? tumor fever - Metastatic bladder CA - bulky mass lesions in the urinary bladder bed, there are now large omental and mesenteric masses with central necrosis Obstructive uropathy sp bl nephrostomies Presented with UTI, sepsis - on appropiate abx - repeat urine clx neg @ 24 hrs - persistent fever Low grade Staph haemolyticus bactermia - can be 2/2 UTI Abd pain, vomiting in the presens of multiple builky masess - ro obstruction cont current abx: Ro Brewster MD Jul 30, 2016 12:31
--- NOTE | 2016-07-30 12:42 | HHI.PR ---
Subjective Remarks Patient seen and examined this am. Abd pain with nausea and vomiting this am. Dr. James saw and evaluated the patient and ordered KUB. Still making bowel movements. The patient reports his abd pain is currently well after getting zofran. He states he vomited once yesterday and once today. (Saige Maldonado MD R3) Objective Vital Signs Date Time Temp Pulse Resp B/P Pulse Ox O2 Delivery O2 Flow Rate FiO2 07/30/16 08:15 Room Air 07/30/16 08:00 98.6 108 18 130/61 98 07/30/16 04:00 97.7 86 20 122/70 98 07/30/16 00:00 98.1 93 16 122/62 96 07/29/16 20:00 99.6 115 20 119/59 94 07/29/16 20:00 Room Air 07/29/16 16:00 98.5 110 18 119/61 98 I/O 07/29/16 07/29/16 07/29/16 07/30/16 07/30/16 07/30/16 07:00 15:00 23:00 07:00 15:00 23:00 Intake Total 480 ml 725 ml 480 ml Output Total 500 ml 600 ml 250 ml Balance -500 ml -120 ml 725 ml 230 ml Intake Oral 480 ml 480 ml IV Total 725 ml Output Urine Total 500 ml 600 ml 250 ml # Bowel Movements 0 1 (Saige Maldonado MD R3) Result Diagram: 07/30/16 0550 07/30/16 0550 Imaging Last Impressions Lower Extremity Ultrasound 07/28/16 0000 Signed Impressions: Service Date/Time: July 11:27 - CONCLUSION: No evidence of DVT. Mario Calix MD Abdomen/Pelvis CT 07/24/16 0000 Signed Impressions: Service Date/Time: Monday, July 25, 2016 00:55 - CONCLUSION: 1. Interval development of extensive metastases. In addition to the bulky mass lesions in the urinary bladder bed, there are now large omental and mesenteric masses with central necrosis, retroperitoneal and anterior abdominal wall metastatic deposits with extensive metastasis to the liver. 2. Interval placement of bilateral nephrostomy tubes with decompression of the previously hydronephrotic kidneys. Preston Ewing MD ADDENDUM: COMPARISON: CT ABDOMEN & PELVIS W & W/O CONTRAST, July 13, 2016, 13:43. It has been brought to our attention that a more recent comparison study is available. The liver lesions are stable in number but they have increased in size. In particular a anterior right lobe liver lesion currently measures 2.2 x 1.9 cm compared to 1.8 x 1.4 cm previously. Also, there are 2 lesions near the dome that measure approximately 13 mm each that were previously barely visible measuring approximately 8 mm. No new liver lesion is identified. There is a extrahepatic mass abutting the right lobe of the liver that currently measures 7.8 x 4.1 cm compared to 5.6 x 3.4 cm previously. Throughout the abdomen and pelvis there are multiple peritoneal based masses that have also increased in size. In particular the mass in the right lower quadrant in the iliac fossa measures 9.5 x 6.3 cm compared to 8.0 x 5.6 cm previously. Another index lesion in the left mid abdomen anteriorly measures 7.3 x 7.1 cm compared to 4.2 x 3.2 cm previously. Multiple pelvic soft tissue masses are present and these have also increased in size. In the left inferior pelvis a mass currently measures 7.0 x 5.4 cm compared to 4.6 x 4.9 cm previously. Please see above for description of the remaining findings. IMPRESSION: Comparison was made to the more recent prior examination dated 07/13/2016. As described above, the multiple liver lesions and solid masses within the abdomen and pelvis have increased in size. Index measurements are given above. Findings are indicative of interval progression of disease. Ochoa Roberson MD Nephrostomy 07/22/16 0000 Signed Impressions: Service Date/Time: Friday, July 22, 2016 09:43 - CONCLUSION: Uncomplicated right nephrostomy tube placement as above. The collecting system is grossly dilated. The urine was turbid and therefore sent for microbiological evaluation. Several days of decompression can be performed and then attempts at placement of ureteral stent with extension through the ileal conduit stoma. I spoke with Dr. Lee concerning this. eJsus Perez Jr., MD Renal Scan w/Medication NM 07/20/16 0000 Signed Impressions: Service Date/Time: Wednesday, July 20, 2016 15:34 - CONCLUSION: High grade obstruction on the right with partial obstruction on the left. Abdullahi Dos Santos MD Chest X-Ray 07/19/16 1226 Signed Impressions: Service Date/Time: Tuesday, July 19, 2016 15:14 - CONCLUSION: 1. The [id number] in good position. 2. The lungs are clear. Salvatore Tolbert MD Objective Remarks GENERAL: Sitting up in bed. Appears comfortable. Alert. Vomit on shirt ( brownish yellow) SKIN: Warm and dry. HEAD: Normocephalic. EYES: No scleral icterus. No injection or drainage. NECK: Supple, trachea midline. No JVD. CARDIOVASCULAR: Regular rate and rhythm without murmurs, gallops, or rubs. RESPIRATORY: Breath sounds equal bilaterally. No accessory muscle use. GASTROINTESTINAL: Abdomen soft, mildly distended. Ileal conduit right lower quadrant. No surrounding erythema. Abdomen nontender. diverting ileal conduit with 2J stents. BS are present. MUSCULOSKELETAL: No cyanosis, or edema. BACK: Nontender without obvious deformity. (Saige Maldonado MD R3) A/P Problem List: (1) Renal insufficiency ICD Code: N28.9 (2) Nausea & vomiting ICD Code: R11.2 (3) Invasive carcinoma of urinary bladder ICD Code: C67.9 (4) Bilateral hydronephrosis ICD Code: N13.30 Assessment and Plan 50 y/o man with muscle invasive bladder cancer, with progression to metastatic disease admitted for urosepsis/gm neg trinity, with recurrent fevers, and now with abdominal pain and vomiting. 1. Abd pain with N/V: abdominal mets are present, concern for bowel obstruction. NPO. KUB pending. 2. Fevers with leukocytosis: Recurrent fevers last 07/29/2016. No current signs of infection. At this point is likely secondary to necrotic metastases. Being treated with with Zosyn. Previously on vancomycin. Urine culture no growth to date, blood cultures no growth x6. 3. AK I: Creatinine currently uptrending, today 2.13. Renally dose all meds. Avoid nephrotoxic meds. IV hydration 4. Mild nutrition: Dietary following 5. Invasive bladder carcinoma with hydronephrosis: Currently being followed by urology, palliative care, and heme/onc. Palliative care assisting with pain management. Heme Onc considering palliative chemotherapy versus checkpoint inhibitor. 6. Acute on chronic anemia: Status post 3 units packed red blood cells. Hemoglobin currently stable. 7. Right lower extremity edema, has been ruled out for DVT Discharge Planning Will be a difficult discharge due to patient insurance. Continue to optimize medical management while in hospital. (Saige Maldonado MD R3) Saige Maldonado MD R3 Jul 30, 2016 12:42 Rose Schmidt MD Jul 30, 2016 15:26
[2016-07-30] MEDS: ENOXAPARIN SODIUM 30 MG/0.3 ML SYRINGE SQ SCH (13:57)
--- NOTE | 2016-07-30 14:02 | RADRPT ---
EXAM DATE/TIME: 07/30/2016 13:33 [facility] COMPARISON: CT ABDOMEN & PELVIS W CONTRAST, July 25, 2016, 0:55. ABDOMEN KUB ONLY, June 09, 2016, 2:37. INDICATIONS : Abdominal pain. MEDICAL HISTORY : Cardiovascular disease. Hypertension. Carcinoma, bladder SURGICAL HISTORY : Bladder removed. Kidney stents. ENCOUNTER: Initial ACUITY: 1 day PAIN SCORE: 5/10 LOCATION: Bilateral abdomen. FINDINGS: The patient is status post cystectomy. There are ureteral stents in place bilaterally. The proximal aspects of the stents are seen over the expected location of the renal pelves. The distal ends exte nd through an ileostomy in the right lower quadrant. The bowel gas pattern is normal. Clips are see n in the pelvis. CONCLUSION: Bilateral ureteral stents in place through an ileal loop in the right lower quadrant. Ochoa Oconnor MD on July 30, 2016 at 13:54 Board Certified Radiologist. This report was verified electronically.
[2016-07-30 14:49] LABS: INTERNATIONAL NORMALIZED RATIO 1.3 RATIO; PROTHROMBIN TIME - PATIENT 14.6 SEC (9.8-11.6)
--- NOTE | 2016-07-30 15:01 | RADRPT ---
EXAM DATE/TIME: 07/30/2016 12:39 [facility] COMPARISON: ABDOMEN KUB ONLY, July 30, 2016, 13:33. CT ABDOMEN & PELVIS W/O CONTRAST, June 01, 2016, 18:19. US KIDNEY/RENAL/BLADDER, May 11, 2016, 11:33. INDICATIONS : Increased BUN/Creatinine. MEDICAL HISTORY : Neurogenic bladder. Spinal cord tumor. Dyspnea. Hypertension. Bladder cancer. Chemotherapy. SURGICAL HISTORY : Cystoscopy. Cystoprostatectomy. Benign tumor removed from spine. ENCOUNTER: Subsequent ACUITY: 1 day PAIN SCORE: 0/10 LOCATION: Bilateral flank MEASUREMENTS: RIGHT KIDNEY: 13.7 x 7.0 x 6.5 cm LEFT KIDNEY: 13.3 x 7.8 x 6.0 cm FINDINGS: Both kidneys appear normal in size. There is no evidence of hydronephrosis. Focal renal masses are not clearly seen. There are masses seen in the liver, including a hypoechoic mass measuring up to 6.7 cm and an adjacen t more echogenic mass measuring 3.3 cm. There also appear to be masses in the pelvis measuring up to 12 cm. Sludge is seen within the gallbladder. CONCLUSION: 1. Normal appearance of the kidneys. 2. Hepatic masses and masses in the soft tissues in the pelvis. The patient had masses seen on the prior CT examination. Ochoa Oconnor MD on July 30, 2016 at 14:40 Board Certified Radiologist. This report was verified electronically.
--- NOTE | 2016-07-30 15:59 | RADRPT ---
EXAM DATE/TIME: 07/30/2016 14:46 [facility] COMPARISON: CHEST SINGLE AP, July 30, 2016, 9:48. INDICATIONS : Dyspnea. DOSE: 8.7 mCi Tc99m MAA IV 1.0 mCi Tc99m DTPA aerosol MEDICAL HISTORY : Hypertension. Carcinoma, bladder. SURGICAL HISTORY : Tumor removed from spine and bladder surgery. ENCOUNTER: Initial ACUITY: 1 day PAIN SCALE: 0/10 LOCATION: Chest. TECHNIQUE: Following five minutes of tidal breathing of DTPA aerosol, planar images of the lungs were performed in eight projections. The patient was then injected with MAA, and eight-view perfusion scan was perf ormed. FINDINGS: Today's comparison one the radiograph shows no infiltrate, effusion or pneumothorax. Heart size withi n normal limits. Patient has a right internal jugular Hubtsq-b-Ftsm catheter with tip at the atriocav al junction, accessed. Ventilation is reasonably homogeneous. There is homogeneous perfusion of both lungs without evidence of pulmonary embolus. Some of the injec delfino contrast stays in the hub of the port and some accumulates around the tip of the catheter which w ould suggest likelihood of a fibrin sheath at the tip. CONCLUSION: 1. No evidence of pulmonary embolus. Study is low probability. 2. Suspected fibrin sheath near the tip of the right internal jugular [id number]-k-Wccj catheter. Ochoa Bae MD on July 30, 2016 at 15:55 Board Certified Radiologist. This report was verified electronically.
[2016-07-30 16:00] VITALS: BP 119/64; PULSE 101; RESP 20; TEMP 98.1; O2SAT 97
[2016-07-30] MEDS ORDERED: POTASSIUM CHLORIDE 10 MEQ CONTROLLED RELEASE TAB PO ONE (16:15)
[2016-07-30 20:00] VITALS: BP 119/70; PULSE 90; RESP 18; TEMP 97.6; O2SAT 96
[2016-07-31] VITALS: BP 116/64; PULSE 86; RESP 18; TEMP 97.3; O2SAT 99
[2016-07-31] MEDS: HYDROmorphone HCL 4 MG TAB PO PRN ×2 (00:47→13:56)
[2016-07-31] MEDS: PIPERACIL-TAZO 3.375 GM PREMIX 50 ML IV SCH ×4 (02:00→20:17)
[2016-07-31 04:00] VITALS: BP 142/66; PULSE 123; RESP 20; TEMP 101.9; O2SAT 95
[2016-07-31] MEDS: LORazepam 0.5 MG TAB PO SCH ×3 (06:09→20:17)
[2016-07-31] MEDS: ACETAMINOPHEN 325 MG TAB PO PRN (06:09)
[2016-07-31 06:45] LABS: AUTOMATED NEUTROPHIL # 35.7 TH/MM3 (1.8-7.7); EOSINOPHIL # 0.6 TH/MM3 (0-0.4); EOSINOPHIL % 1.6 % (0.0-4.0); HEMATOCRIT 25.8 % (39.0-51.0); LYMPH % 2.2 % (9.0-44.0); LYMPHOCYTE # 0.8 TH/MM3 (1.0-4.8); MEAN CELL VOLUME 91.8 FL (80.0-100.0); MEAN CORPUSCULAR HEMOGLOBIN 29.9 PG (27.0-34.0); MEAN CORPUSCULAR HGB CONC 32.6 % (32.0-36.0); MONO % 3.3 % (0.0-8.0); NEUT % 92.9 % (16.0-70.0); PLATELET COUNT 233 TH/MM3 (150-450); RED BLOOD COUNT 2.81 MIL/MM3 (4.50-5.90); RED CELL DISTRIBUTION WIDTH 15.9 % (11.6-17.2); WHITE BLOOD COUNT 38.4 TH/MM3 (4.0-11.0)
[2016-07-31 06:55] LABS: BICARBONATE 22.9 MEQ/L (21.0-32.0); POTASSIUM 3.8 MEQ/L (3.5-5.1)
[2016-07-31 07:00] LABS: HEMO FLAGS AUTO DIFF
[2016-07-31 07:27] LABS: APTT (PATIENT) 31.6 SEC (24.3-30.1); INTERNATIONAL NORMALIZED RATIO 1.2 RATIO; PROTHROMBIN TIME - PATIENT 13.8 SEC (9.8-11.6)
[2016-07-31 08:00] VITALS: BP 105/55; PULSE 126; RESP 18; TEMP 98.3; O2SAT 94
[2016-07-31] MEDS: ONDANSETRON ODT 4 MG TAB PO SCH (08:53)
[2016-07-31] MEDS: SODIUM CHLORIDE 0.9% FLUSH 5 ML FLUSH FLUSH SCH ×2 (08:54→20:18)
[2016-07-31] MEDS: DOCUSATE SODIUM 50 MG/SENNA 8.6 MG TAB PO SCH ×2 (08:54→20:11)
[2016-07-31] MEDS: oxyCODONE HCL 10 MG CONTROLLED RELEASE TAB PO SCH ×2 (08:54→20:17)
[2016-07-31] MEDS: SODIUM CHLOR 0.9% 1000 ML INJ 1,000 ML IV SCH ×2 (08:55→19:44)
--- NOTE | 2016-07-31 09:21 | HHI.PR ---
Subjective Remarks Patient seen and examined this am. He is tachycardic up to 120s and was febrile this am Tmax 101.9. He is hungry this am. Denies any further abdominal pain, N, or vomiting. No complaints this am other than requesting food. (Saige Maldonado MD R3) Objective Vital Signs Date Time Temp Pulse Resp B/P Pulse Ox O2 Delivery O2 Flow Rate FiO2 07/31/16 08:00 98.3 126 18 105/55 94 07/31/16 04:00 101.9 123 20 142/66 95 07/31/16 00:00 97.3 86 18 116/64 99 07/30/16 20:00 97.6 90 18 119/70 96 07/30/16 19:50 Room Air 07/30/16 16:00 98.1 101 20 119/64 97 07/30/16 12:00 100.3 110 20 122/58 95 I/O 07/30/16 07/30/16 07/30/16 07/31/16 07/31/16 07/31/16 07:00 15:00 23:00 07:00 15:00 23:00 Intake Total 480 ml 1291 ml 1115 ml 924 ml Output Total 250 ml 600 ml 350 ml 500 ml Balance 230 ml 691 ml 765 ml 424 ml Intake Oral 480 ml 480 ml 240 ml 100 ml IV Total 811 ml 875 ml 824 ml Output Urine Total 250 ml 600 ml 350 ml 500 ml # Bowel Movements 1 1 0 0 (Saige Maldonado MD R3) Result Diagram: 07/31/16 0612 07/31/16 0612 Imaging Last Impressions Renal Ultrasound 07/30/16 0000 Signed Impressions: Service Date/Time: Saturday, July 30, 2016 12:39 - CONCLUSION: 1. Normal appearance of the kidneys. 2. Hepatic masses and masses in the soft tissues in the pelvis. The patient had masses seen on the prior CT examination. Ochoa Oconnor MD Lung Scan- Nuclear Medicine 07/30/16 0000 Signed Impressions: Service Date/Time: Saturday, July 30, 2016 14:46 - CONCLUSION: 1. No evidence of pulmonary embolus. Study is low probability. 2. Suspected fibrin sheath near the tip of the right internal jugular Kbkhin-i-Evfr catheter. Ochoa Bae MD Chest X-Ray 07/30/16 0000 Signed Impressions: Service Date/Time: Saturday, July 30, 2016 09:48 - CONCLUSION: No acute disease. Ochoa Oconnor MD Abdomen X-Ray 07/30/16 0000 Signed Impressions: Service Date/Time: Saturday, July 30, 2016 13:33 - CONCLUSION: Bilateral ureteral stents in place through an ileal loop in the right lower quadrant. Ochoa Oconnor MD Lower Extremity Ultrasound 07/28/16 0000 Signed Impressions: Service Date/Time: July 11:27 - CONCLUSION: No evidence of DVT. Mario Calix MD Abdomen/Pelvis CT 07/24/16 0000 Signed Impressions: Service Date/Time: Monday, July 25, 2016 00:55 - CONCLUSION: 1. Interval development of extensive metastases. In addition to the bulky mass lesions in the urinary bladder bed, there are now large omental and mesenteric masses with central necrosis, retroperitoneal and anterior abdominal wall metastatic deposits with extensive metastasis to the liver. 2. Interval placement of bilateral nephrostomy tubes with decompression of the previously hydronephrotic kidneys. Preston Ewing MD ADDENDUM: COMPARISON: CT ABDOMEN & PELVIS W & W/O CONTRAST, July 13, 2016, 13:43. It has been brought to our attention that a more recent comparison study is available. The liver lesions are stable in number but they have increased in size. In particular a anterior right lobe liver lesion currently measures 2.2 x 1.9 cm compared to 1.8 x 1.4 cm previously. Also, there are 2 lesions near the dome that measure approximately 13 mm each that were previously barely visible measuring approximately 8 mm. No new liver lesion is identified. There is a extrahepatic mass abutting the right lobe of the liver that currently measures 7.8 x 4.1 cm compared to 5.6 x 3.4 cm previously. Throughout the abdomen and pelvis there are multiple peritoneal based masses that have also increased in size. In particular the mass in the right lower quadrant in the iliac fossa measures 9.5 x 6.3 cm compared to 8.0 x 5.6 cm previously. Another index lesion in the left mid abdomen anteriorly measures 7.3 x 7.1 cm compared to 4.2 x 3.2 cm previously. Multiple pelvic soft tissue masses are present and these have also increased in size. In the left inferior pelvis a mass currently measures 7.0 x 5.4 cm compared to 4.6 x 4.9 cm previously. Please see above for description of the remaining findings. IMPRESSION: Comparison was made to the more recent prior examination dated 07/13/2016. As described above, the multiple liver lesions and solid masses within the abdomen and pelvis have increased in size. Index measurements are given above. Findings are indicative of interval progression of disease. Ochoa Roberson MD Nephrostomy 07/22/16 0000 Signed Impressions: Service Date/Time: Friday, July 22, 2016 09:43 - CONCLUSION: Uncomplicated right nephrostomy tube placement as above. The collecting system is grossly dilated. The urine was turbid and therefore sent for microbiological evaluation. Several days of decompression can be performed and then attempts at placement of ureteral stent with extension through the ileal conduit stoma. I spoke with Dr. Lee concerning this. Jesus Perez Jr., MD Renal Scan w/Medication NM 07/20/16 0000 Signed Impressions: Service Date/Time: Wednesday, July 20, 2016 15:34 - CONCLUSION: High grade obstruction on the right with partial obstruction on the left. Abdullahi Dos Santos MD Objective Remarks GENERAL: Sitting up in bed. Appears comfortable. Vitals noted. SKIN: Warm and dry. HEAD: Normocephalic. EYES: No scleral icterus. No injection or drainage. NECK: Supple, trachea midline. No JVD. CARDIOVASCULAR: Regular rate and rhythm without murmurs, gallops, or rubs. RESPIRATORY: Breath sounds equal bilaterally. No accessory muscle use. GASTROINTESTINAL: Abdomen soft, mildly distended. Ileal conduit right lower quadrant. No surrounding erythema. Abdomen nontender. diverting ileal conduit with 2J stents. BS are present. Diaper on. MUSCULOSKELETAL: No cyanosis, or edema. BACK: Nontender without obvious deformity. (Saige Maldonado MD R3) A/P Problem List: (1) Renal insufficiency ICD Code: N28.9 (2) Nausea & vomiting ICD Code: R11.2 (3) Invasive carcinoma of urinary bladder ICD Code: C67.9 (4) Bilateral hydronephrosis ICD Code: N13.30 Assessment and Plan 50 y/o man with muscle invasive bladder cancer, with progression to metastatic disease admitted for urosepsis/gm neg trinity, with recurrent fevers, and now with abdominal pain and vomiting. 1. Abd pain with N/V: on 07/30, this has resolved. KUB yesterday negative for obstruction. Continue to monitor. 2. Tachycardic: repeated in room, <100. Denies CP or palpations. 500 cc NS x 1 2. Fevers with leukocytosis: Recurrent fevers last this am. No current signs of infection. At this point is likely secondary to necrotic metastases. Being treated with with Zosyn. Previously on vancomycin. Urine culture no growth to date, blood cultures no growth x6. 3. AK I: Creatinine downtrending from yesterday. Renally dose all meds. Avoid nephrotoxic meds. IV hydration 4. Mild nutrition: Dietary following 5. Invasive bladder carcinoma with hydronephrosis: Currently being followed by urology, palliative care, and heme/onc. Palliative care assisting with pain management. Heme Onc considering palliative chemotherapy versus checkpoint inhibitor. 6. Acute on chronic anemia: Status post 3 units packed red blood cells 07/24. Hemoglobin currently stable. 7. Right lower extremity edema, has been ruled out for DVT Fluids: 100 cc/hr NS, bolus as above Electrolytes: currently wnl Nutrition: regular diet DVT prophy: renally dosed lovenox Discharge Planning Will be a difficult discharge due to patient insurance. Continue to optimize medical management while in hospital. Heme/onc setting up meeting with palliative care and hospice tomorrow at patients request. (Saige Maldonado MD R3) Saige Maldonado MD R3 Jul 31, 2016 09:21 Rose Schmidt MD Jul 31, 2016 15:49
[2016-07-31] MEDS ORDERED: SODIUM CHLORID 0.9% 500 ML INJ 500 ML IV ONE (09:30)
--- NOTE | 2016-07-31 10:17 | PD.ONC.PN ---
Subjective Subjective Remarks Tmax 101.9 overnight. Patient denies pain. He states he has been thinking more about hospice, but wants to speak with his mother about it. Objective Data Date Time Temp Pulse Resp B/P Pulse Ox O2 Delivery O2 Flow Rate FiO2 07/31/16 08:00 98.3 126 18 105/55 94 07/31/16 04:00 101.9 123 20 142/66 95 07/31/16 00:00 97.3 86 18 116/64 99 07/30/16 20:00 97.6 90 18 119/70 96 07/30/16 19:50 Room Air 07/30/16 16:00 98.1 101 20 119/64 97 07/30/16 12:00 100.3 110 20 122/58 95 07/31/16 07/31/16 07/31/16 07:00 15:00 23:00 Intake Total 924 ml Output Total 500 ml Balance 424 ml Result Diagram: 07/31/1661107/31/16611 Laboratory Results Laboratory Tests Test 07/30/16 07/31/16 14:30 06:12 Prothrombin Time 14.6 SEC 13.8 SEC Prothromb Time International 1.3 RATIO 1.2 RATIO Ratio Activated Partial 33.0 SEC 31.6 SEC Thromboplast Time Fibrinogen 432 mg/dL 474 mg/dL White Blood Count 38.4 TH/MM3 Red Blood Count 2.81 MIL/MM3 Hemoglobin 8.4 GM/DL Hematocrit 25.8 % Mean Corpuscular Volume 91.8 FL Mean Corpuscular Hemoglobin 29.9 PG Mean Corpuscular Hemoglobin 32.6 % Concent Red Cell Distribution Width 15.9 % Platelet Count 233 TH/MM3 Mean Platelet Volume 7.8 FL Neutrophils (%) (Auto) 92.9 % Lymphocytes (%) (Auto) 2.2 % Monocytes (%) (Auto) 3.3 % Eosinophils (%) (Auto) 1.6 % Basophils (%) (Auto) 0.0 % Neutrophils # (Auto) 35.7 TH/MM3 Lymphocytes # (Auto) 0.8 TH/MM3 Monocytes # (Auto) 1.2 TH/MM3 Eosinophils # (Auto) 0.6 TH/MM3 Basophils # (Auto) 0.0 TH/MM3 CBC Comment AUTO DIFF Sodium Level 143 MEQ/L Potassium Level 3.8 MEQ/L Chloride Level 109 MEQ/L Carbon Dioxide Level 22.9 MEQ/L Anion Gap 11 MEQ/L Blood Urea Nitrogen 17 MG/DL Creatinine 1.87 MG/DL Estimat Glomerular Filtration 39 ML/MIN Rate Random Glucose 83 MG/DL Calcium Level 8.6 MG/DL Culture Results Microbiology Date/Time Procedure Status Source Growth 07/29/16 05:25 Aerobic Blood Culture - Preliminary Resulted Blood Peripheral NO GROWTH IN 1 DAY 07/29/16 05:25 Anaerobic Blood Culture - Preliminary Resulted Blood Peripheral NO GROWTH IN 1 DAY 07/29/16 05:28 Aerobic Blood Culture - Preliminary Resulted Blood Peripheral NO GROWTH IN 1 DAY 07/29/16 05:28 Anaerobic Blood Culture - Preliminary Resulted Blood Peripheral NO GROWTH IN 1 DAY 07/29/16 13:35 Urine Culture - Preliminary Resulted Urine Clean Catch NO GROWTH IN 24 HOURS. 07/29/16 13:35 Cancelled Urine Clean Catch Administered Medications Medications (Trade) Dose Ordered Sig/Ambika Route PRN Reason Start Time Stop Time Status Last Admin Dose Admin Sodium Chloride (NS 1000 ml Inj) 1,000 ml @ 100 mls/hr Q10H IV 07/19/16 17:44 07/31/16 08:55 IV Flush (NS Flush) 2 ml UNSCH PRN FLUSH FLUSH AFTER USING IV ACCESS 07/19/16 17:45 07/20/16 05:58 IV Flush (NS Flush) 2 ml BID FLUSH 07/19/16 21:00 07/30/16 09:02 Acetaminophen (Tylenol) 650 mg Q4H PRN PO fever >101 07/19/16 20:00 07/31/16 06:09 Citalopram Hydrobromide (CeleXA) 20 mg DAILY PO 07/20/16 13:00 Hold 07/20/16 13:00 Lorazepam (Ativan) 0.5 mg Q8HR PO 07/20/16 14:00 07/31/16 06:09 Lorazepam (Ativan) 1 mg Q6H PRN PO anxiety/sob #6-10 07/20/16 13:00 07/22/16 00:36 Hydromorphone HCl (Dilaudid Pf Inj) 0.75 mg Q3HR PRN IV PUSH BREAKTHROUGH PAIN 07/20/16 13:45 07/26/16 00:06 Ondansetron HCl (Zofran Inj) 4 mg Q6HR PRN IV PUSH NAUSEA OR VOMITING 07/23/16 11:45 07/30/16 19:43 Oxycodone HCl 30 mg 30 mg Q12HR PO 07/25/16 21:00 07/31/16 08:54 Piperacillin Sod/ Tazobactam Sod (Zosyn 3.375 Gm Premix) 50 ml @ 100 mls/hr Q6H IV 07/25/16 20:00 07/31/16 08:55 Hydromorphone HCl (Dilaudid) 2 mg Q4H PRN PO PAIN SCALE 1 TO 5 07/25/16 19:45 07/30/16 05:42 Hydromorphone HCl (Dilaudid) 4 mg Q4H PRN PO PAIN SCALE 6 TO 10 07/25/16 19:45 07/31/16 00:47 Senna/Docusate Sodium (Juanita-Colace) 1 tab BID PO 07/25/16 21:00 07/30/16 09:00 Ondansetron HCl (Zofran Odt) 4 mg DAILY@08 PO 07/30/16 08:00 07/31/16 08:53 Enoxaparin Sodium (Lovenox Inj) 30 mg Q24H SQ 07/30/16 12:00 07/30/16 13:57 Objective Remarks GENERAL: Middle aged male, sitting up in bed in [facility]. SKIN: Warm and dry. HEAD: Normocephalic. EYES: No injection or drainage. NECK: Supple, trachea midline. CARDIOVASCULAR: Regular rate and rhythm RESPIRATORY: Breath sounds equal bilaterally. No accessory muscle use. GASTROINTESTINAL: Abdomen soft, non-tender, nondistended. yellow urine draining from urostomy bag EXTREMITIES: No cyanosis NEUROLOGICAL: awake and alert, normal speech. moving extremities. Assessment/Plan Problem List: (1) Invasive carcinoma of urinary bladder Status: Chronic Plan: --followed by palliative care. --fevers likely due to tumor burden (tumor fever), persistent associated with Leukocytosis. --Clinical decline, with worsen renal function, new lower extremity edema, leukocytosis no response to antibiotic. History: --February 2016: diagnosed with bladder cancer. juanita-operative chemotherapy attempted. --May 2016: bladder resection. final tumor measured 8 x 7.5 x 5.5 cm. The tumor invades through the muscularis propria into the perivesicular adipose tissue microscopically and macroscopically. The margins were involved by invasive carcinoma at the anterior soft tissue margin. The ureteral margins were negative for tumor. There were lymphatic and venous space invasions. It was a pathologic stage, T4b, N2 Mx. --Jun 2016: admitted with N/V. + BC. started on abx. BPNT placed and then later internalized. -July 2016: CT shows worsening disease Assessment 50 y/o man with muscle invasive bladder cancer, with progression to metastatic disease admitted for urosepsis/gm neg trinity. Plan 1. monitor CBC, BMP 2. continue antibiotics 3. will set up meeting tomorrow with myself, palliative care, hospice and patient's mother, at patient's request. Attending Statement The exam, history, and the medical decision-making described in the above note were completed with the assistance of the mid-level provider. I reviewed and agree with the findings presented. I attest that I had a [id number] encounter with the patient on the same day, and personally performed and documented my assessment and findings in the medical record. Patient asking for comfort care and hospice. DNR Discharge to Hospice Jesika iWlkes Jul 31, 2016 10:17 Deonte Chamberlain MD Aug 01, 2016 00:08
[2016-07-31 10:23] LABS: BANDS 26 % (0-6); EOSINOPHILS 1 % (0-4); NEUTROPHIL # MANUAL DIFF 34.9 TH/MM3 (1.8-7.7); PLATELET ESTIMATE SMEAR NORMAL (NORMAL); PLATELET MORPHOLOGY NORMAL (NORMAL); POLYS (SEG NEUTROPHILS) 65 % (16-70); SCAN/DIFF FINAL DIFF MANUAL; TOXIC GRANULATION 1+ (NORMAL); TOXIC VACUOLATION PRESENT (NONE SEEN); WBC DIFF SAMPLE 100
[2016-07-31] MEDS: ENOXAPARIN SODIUM 30 MG/0.3 ML SYRINGE SQ SCH (11:59)
[2016-07-31 12:00] VITALS: BP 120/61; PULSE 95; RESP 18; TEMP 98.4; O2SAT 95
[2016-07-31 16:00] VITALS: BP 112/55; PULSE 82; RESP 18; TEMP 99; O2SAT 96
[2016-07-31 20:00] VITALS: BP 129/59; PULSE 110; RESP 18; TEMP 98; O2SAT 97
[2016-07-31] MEDS: ONDANSETRON HCL 4 MG/2 ML VIAL IV PUSH PRN (20:17)
[2016-08-01] VITALS: BP 126/61; PULSE 123; RESP 18; TEMP 99.4; O2SAT 95
[2016-08-01] MEDS: HYDROmorphone HCL 4 MG TAB PO PRN ×3 (01:17→11:27)
[2016-08-01] MEDS: PIPERACIL-TAZO 3.375 GM PREMIX 50 ML IV SCH ×3 (01:17→14:02)
[2016-08-01 04:00] VITALS: BP 107/56; PULSE 83; RESP 18; TEMP 98.2; O2SAT 97
[2016-08-01] MEDS: LORazepam 0.5 MG TAB PO SCH ×2 (05:15→14:01)
[2016-08-01] MEDS: SODIUM CHLOR 0.9% 1000 ML INJ 1,000 ML IV SCH (05:35)
[2016-08-01] MEDS: ONDANSETRON ODT 4 MG TAB PO SCH (07:59)
[2016-08-01] MEDS: oxyCODONE HCL 10 MG CONTROLLED RELEASE TAB PO SCH (07:59)
[2016-08-01 08:00] VITALS: BP 105/56; PULSE 76; RESP 12; TEMP 97.8; O2SAT 97
[2016-08-01] MEDS: DOCUSATE SODIUM 50 MG/SENNA 8.6 MG TAB PO SCH (08:01)
[2016-08-01] MEDS: SODIUM CHLORIDE 0.9% FLUSH 5 ML FLUSH FLUSH SCH (08:01)
--- NOTE | 2016-08-01 08:40 | HHI.PR ---
Subjective Remarks Pt seen and examined. Pt having trouble getting up and ambulating due to right LE edema. Objective Vital Signs Vital Signs Date Time Temp Pulse Resp B/P Pulse Ox O2 Delivery O2 Flow Rate FiO2 08/01/16 08:00 97.8 76 12 105/56 97 08/01/16 04:00 98.2 83 18 107/56 97 08/01/16 00:00 99.4 123 18 126/61 95 07/31/16 20:22 Room Air 07/31/16 20:00 98.0 110 18 129/59 97 07/31/16 16:00 99.0 82 18 112/55 96 07/31/16 12:00 98.4 95 18 120/61 95 07/31/16 09:00 Room Air I/O 07/31/16 07/31/16 07/31/16 08/01/16 08/01/16 08/01/16 07:00 15:00 23:00 07:00 15:00 23:00 Intake Total 924 ml 1688 ml 120 ml 480 ml Output Total 500 ml 1000 ml 600 ml 500 ml Balance 424 ml 688 ml -480 ml -20 ml Intake Oral 100 ml 480 ml 120 ml 480 ml IV Total 824 ml 1208 ml Output Urine Total 500 ml 1000 ml 600 ml 500 ml # Bowel Movements 0 1 0 Result Diagram: 07/31/16 0612 07/31/16 0612 Imaging Last 48 hours Impressions Renal Scan w/Medication NM 07/20/16 0000 Signed Impressions: Service Date/Time: Wednesday, July 20, 2016 15:34 - CONCLUSION: High grade obstruction on the right with partial obstruction on the left. Abdullahi Dos Santos MD Chest X-Ray 07/19/16 6157 Signed Impressions: Service Date/Time: Tuesday, July 19, 2016 15:14 - CONCLUSION: 1. The [id number] in good position. 2. The lungs are clear. Salvatore Tolbert MD Objective Remarks Abd:soft,nt,nd B/L PCNT's in place and draining well. 07/25/16 Abd:soft,nt,nd B/L PCNT's in place and draining well. 07/27/15 Abdomen soft nontender nondistended Bilateral percutaneous nephrostomy tubes draining clear urine 07/27 Abd:soft,nt,nd PCNT's in place and draining clear urine 07/28 Abd:soft,nt,nd Conduit draining clear urine 07/29 Abd:soft,nt,nd Conduit draining clear urine Stents in place 08/01 Abd:soft,nt,nd Conduit draining clear urine Stents in place Assessment and Plan Problem List: (1) Urinary tract infection ICD Code: N39.0 Status: Acute (2) Bilateral hydronephrosis ICD Code: N13.30 Status: Chronic (3) Invasive carcinoma of urinary bladder ICD Code: C67.9 Status: Chronic Assessment and Plan -Plan for Bilateral nephrostomy tubes today -Will discuss with and defer further care as patient is known to him -Please call with questions 07/22/16 50 y.o male with metastatic bladder cancer with b/l ureteral obstruction s/p b/ l placement of PCNT's Check cultures Continue ABX Will need internalization with b/l JJ stents by IR next week. 07/25/16 50 y.o male with metastatic bladder cancer with b/l ureteral obstruction s/p b/ l placement of PCNT's CT shows worsen evidence of metastatics Maintain b/l PCNT's for now. May not change to internalized stents as stents will fail with increase in bulky disease. Continue ABX Pain control 07/26/16 50-year-old male with metastatic bladder cancer with bilateral ureteral obstruction status post placement of bilateral percutaneous nephrostomy tubes with fever Continue antibiotic coverage per ID Fever may also be a result due to tumor expansion based on recent CT findings. 07/27 50-year-old male with metastatic bladder cancer with bilateral ureteral obstruction status post placement of bilateral percutaneous nephrostomy tubes. For internalization of b/l PCNT's today Continue present management. 07/28 50-year-old male with metastatic bladder cancer with bilateral ureteral obstruction status post placement of JJ stents Creatinine up to 1.6. Continue IVF Right LE edema; will order US to r/o DVT Continue ABX per ID 07/29 50-year-old male with metastatic bladder cancer with bilateral ureteral obstruction status post placement of JJ stents Creatinine up to 1.89. Right LE edema: No evidence of DVT on US Continue ABX per ID Placement post hospitalization: d/w case management Chemotherapy as outpt 08/01 50-year-old male with metastatic bladder cancer with bilateral ureteral obstruction status post placement of JJ stents Creatinine at 1.87 No hydro on recent renal US Agree with hospice at home Eulogio Lee DO Aug 01, 2016 08:40
[2016-08-01] MEDS ORDERED: PHARMACY ORDERED LAB XX ONE (09:45)
--- NOTE | 2016-08-01 11:00 | PD.ONC.PN ---
Subjective Subjective Remarks Afebrile overnight. Patient states pain is well controlled today. Family meeting held with patient, patient's mother, Krista from palliative care, Lucita from hospice and myself. Objective Data Date Time Temp Pulse Resp B/P Pulse Ox O2 Delivery O2 Flow Rate FiO2 08/01/16 09:00 Room Air 08/01/16 08:00 97.8 76 12 105/56 97 08/01/16 04:00 98.2 83 18 107/56 97 08/01/16 00:00 99.4 123 18 126/61 95 07/31/16 20:22 Room Air 07/31/16 20:00 98.0 110 18 129/59 97 07/31/16 16:00 99.0 82 18 112/55 96 07/31/16 12:00 98.4 95 18 120/61 95 08/01/16 08/01/16 08/01/16 07:00 15:00 23:00 Intake Total 480 ml Output Total 500 ml Balance -20 ml Result Diagram: 07/31/1612 07/31/16 0612 Culture Results Microbiology Date/Time Procedure Status Source Growth 07/29/16 13:35 Urine Culture - Final Complete Urine Clean Catch NO GROWTH IN 48 HOURS. 07/29/16 13:35 Cancelled Urine Clean Catch Administered Medications Medications (Trade) Dose Ordered Sig/Ambika Route PRN Reason Start Time Stop Time Status Last Admin Dose Admin Sodium Chloride (NS 1000 ml Inj) 1,000 ml @ 100 mls/hr Q10H IV 07/19/16 17:44 08/01/16 05:35 IV Flush (NS Flush) 2 ml UNSCH PRN FLUSH FLUSH AFTER USING IV ACCESS 07/19/16 17:45 07/20/16 05:58 IV Flush (NS Flush) 2 ml BID FLUSH 07/19/16 21:00 07/30/16 09:02 Acetaminophen (Tylenol) 650 mg Q4H PRN PO fever >101 07/19/16 20:00 07/31/16 06:09 Citalopram Hydrobromide (CeleXA) 20 mg DAILY PO 07/20/16 13:00 Hold 07/20/16 13:00 Lorazepam (Ativan) 0.5 mg Q8HR PO 07/20/16 14:00 08/01/16 05:15 Lorazepam (Ativan) 1 mg Q6H PRN PO anxiety/sob #6-10 07/20/16 13:00 07/22/16 00:36 Hydromorphone HCl (Dilaudid Pf Inj) 0.75 mg Q3HR PRN IV PUSH BREAKTHROUGH PAIN 07/20/16 13:45 07/26/16 00:06 Ondansetron HCl (Zofran Inj) 4 mg Q6HR PRN IV PUSH NAUSEA OR VOMITING 07/23/16 11:45 07/31/16 20:17 Oxycodone HCl 30 mg 30 mg Q12HR PO 07/25/16 21:00 08/01/16 07:59 Piperacillin Sod/ Tazobactam Sod (Zosyn 3.375 Gm Premix) 50 ml @ 100 mls/hr Q6H IV 07/25/16 20:00 08/01/16 07:59 Hydromorphone HCl (Dilaudid) 2 mg Q4H PRN PO PAIN SCALE 1 TO 5 07/25/16 19:45 07/30/16 05:42 Hydromorphone HCl (Dilaudid) 4 mg Q4H PRN PO PAIN SCALE 6 TO 10 07/25/16 19:45 08/01/16 05:34 Senna/Docusate Sodium (Juanita-Colace) 1 tab BID PO 07/25/16 21:00 07/30/16 09:00 Ondansetron HCl (Zofran Odt) 4 mg DAILY@08 PO 07/30/16 08:00 08/01/16 07:59 Enoxaparin Sodium (Lovenox Inj) 30 mg Q24H SQ 07/30/16 12:00 07/31/16 11:59 Objective Remarks GENERAL: Chronically ill male, lying supine in bed in [facility]. SKIN: Warm and dry. HEAD: Normocephalic. EYES: No injection or drainage. NECK: Supple, trachea midline. CARDIOVASCULAR: Regular rate and rhythm RESPIRATORY: Breath sounds equal bilaterally. No accessory muscle use. GASTROINTESTINAL: Abdomen soft, mildly tender around conduit, nondistended. conduit draining yellow urine. EXTREMITIES: No cyanosis. bilateral lower extremities with edema. NEUROLOGICAL: awake and alert, normal speech. moving extremities. Assessment/Plan Problem List: (1) Invasive carcinoma of urinary bladder Status: Chronic Plan: History: --February 2016: diagnosed with bladder cancer. juanita-operative chemotherapy attempted. --May 2016: bladder resection. final tumor measured 8 x 7.5 x 5.5 cm. The tumor invades through the muscularis propria into the perivesicular adipose tissue microscopically and macroscopically. The margins were involved by invasive carcinoma at the anterior soft tissue margin. The ureteral margins were negative for tumor. There were lymphatic and venous space invasions. It was a pathologic stage, T4b, N2 Mx. --Jun 2016: admitted with N/V. + BC. started on abx. BPNT placed and then later internalized. -July 2016: CT shows worsening disease Assessment 50 y/o man with muscle invasive bladder cancer, with progression to metastatic disease admitted for urosepsis/gm neg trinity. Plan 1. meeting held with myself, palliative care, hospice and patient and patient's mother. Patient would like to enroll in hospice and go to hospice care center. 2. supportive care. 3. d/c to hospice care center Attending Statement PT AND FAMILY HAVE DECIDED FOR BSC WITH HOSPICE. D/C TO CARE CENTER WHEN BED IS AVAILABLE PROGNOSIS IS POOR. SIGN OFF AVAILABLE PRN The exam, history, and the medical decision-making described in the above note were completed with the assistance of the mid-level provider. I reviewed and agree with the findings presented. I attest that I had a [id number] encounter with the patient on the same day, and personally performed and documented my assessment and findings in the medical record. Jesika Wilkes Aug 01, 2016 11:00 Heidy Stallworth MD Aug 01, 2016 17:18
[2016-08-01] MEDS: ENOXAPARIN SODIUM 30 MG/0.3 ML SYRINGE SQ SCH (11:18)
--- NOTE | 2016-08-01 11:36 | HHI.HCPN ---
Reason for visit a. To assist with evaluation and management of symptoms including: pain; anxiety; fever. b. To assist medical decision maker(s) with: better understanding of current medical conditions; weighing benefits/burdens of medical treatment options; making medical treatment decisions. . Subjective/Interval History Palliative care to follow-up for pain and symptom management and for clarification of goals of care given increased burden of disease. Palliative care called at bedside for meeting with patient, his mother, director hospice operations and oncology. Patient presents with progressive/increased symptom burden as evidenced by pain, intractable nausea/vomiting, fever, lower extremity edema and profound physical deconditioning. Patient seen in his room, he was laying in bed in moderate distress. Currently reporting lower back/bilateral flanks pain currently rated at 7/10. Pain is described as sharp, exacerbated by prolonged bedrest/movement and alleviated by hydromorphone. Pain regimen was changed from methadone (stopped on 07/24/16) to oxycodone sustained release. He is now on 30 mg of oxycodone q 12 hours ATC and hydromorphone by mouth 2 mg for moderate pain and 4 mg for severe pain every 4 hours as needed. Patient has received 2 dose of hydromorphone PRN for breakthrough pain today and 2 doses yesterday. Continue reporting intractable nausea/vomiting. Limited by mouth intake secondary to nausea. Tolerating sips of clear liquids. Patient afebrile today, stable BP. Tachycardic with heart rate in the 110s. Tolerating room air. Last laboratory 07/31/16 WBC 38.4, Hgb 8.4, platelet count 233. Sodium 143, potassium 3.8, BUN/creatinine 17/1.87. Albumin 1.4. VQ scan on 07/30/16 negative for PE. Chest x-ray 07/30/16 negative for acute process. Abdominal x-ray 07/30/16 showing bilateral ureteral stents. Patient reports that over the weekend his symptoms continued to worsen, in addition to the above, now reporting diarrhea and inability to ambulate. Patient tells me that on Monday he attempted to get out of bed with a walker but was unable to bear weight on his right leg and yesterday he was unable to move his leg while attempting to ambulate. Patient reports being concerned about discharge planning as he is aware of the progression of his illness and increased care. He feels that his mother is unable to care for him at home secondary to the above and is now considering hospice services given his terminal condition and increased burden of disease. Hospice philosophy and benefits fully explained by director hospice operations. Patient and mother familiar with services as patient's father was under hospice care at end-of-life. Patient electing to discharge to hospice care center for pain and symptom management. Mother fully supportive of patient's decision. . Family/friend interactions See interval note. . Advance Directives Living Will: Copy in medical record Health Care Surrogate: Copy in medical record Durable Power of Motor Setter: Never completed Advance Directive Specifics Date completed: The patient completed a living will with my assistance on 07/20/16. . Health Care Surrogate(s): The patient has designated his Payal Suazo his health care surrogate. . Documented care wishes: The patient is completed a standard [place] living will indicating that he would not want life prolonging measures should he be found to have an end-stage condition; terminal condition; or persistent vegetative state. . Significant change in goals: No code. DNR/DNI. Comfort directed care with hospice given terminal condition and increased burden of disease. . Objective Vital Signs Date Time Temp Pulse Resp B/P Pulse Ox O2 Delivery O2 Flow Rate FiO2 08/01/16 09:00 Room Air 08/01/16 08:00 97.8 76 12 105/56 97 08/01/16 04:00 98.2 83 18 107/56 97 08/01/16 00:00 99.4 123 18 126/61 95 07/31/16 20:22 Room Air 07/31/16 20:00 98.0 110 18 129/59 97 07/31/16 16:00 99.0 82 18 112/55 96 07/31/16 12:00 98.4 95 18 120/61 95 Intake & Output 08/01/16 08/01/16 07:00 19:00 Intake Total 600 ml Output Total 1100 ml Balance -500 ml Intake Oral 600 ml Output Urine Total 1100 ml # Bowel Movements 1 Physical Exam CONSTITUTIONAL/GENERAL: This is a thin male in moderate distress secondary to pain. Alert, awake, verbal and able to communicate needs. TUBES/LINES/DRAINS: [id number] right chest; ileoconduit. SKIN: No jaundice, or lesions.. Healed abdominal surgical scars. Skin warm to touch and diaphoretic. CARDIOVASCULAR: tachycardic. RESPIRATORY/CHEST: Symmetric, unlabored respirations. Clear to auscultation. Breath sounds equal bilaterally. Right sided [id number]. GASTROINTESTINAL: Diffuse moderate tenderness across the lower abdomen. Abdomen hard, nondistended. No guarding. Bowel sounds present. Ileoconduit present. GENITOURINARY: Ileoconduit present. Bilateral nephrostomy tubes. MUSCULOSKELETAL: Extremities without clubbing, cyanosis, or edema. No mottling. Trace edema to bilateral lower extremities. NEUROLOGICAL: Awake and alert. Motor and sensory grossly within normal limits. Follows commands. Cognitively sharp. Moves all extremities. PSYCHIATRIC: Appears relaxed. No obvious depression. No evidence of psychotic thought process. . Diagnostic Tests Laboratory Laboratory Tests Test 07/29/16 07/30/16 07/30/16 07/31/16 13:35 05:50 14:30 06:12 Urine Color YELLOW (YELLW/STRAW) Urine Turbidity CLEAR (CLEAR) Urine pH 6.0 (5.0-8.5) Urine Specific [place] 1.015 (1.002-1.035) Urine Protein 30 mg/dL (NEG-TRACE) Urine Glucose (UA) NEG mg/dL (NEG) Urine Ketones NEG mg/dL (NEG) Urine Occult Blood MOD (NEG) Urine Nitrite NEG (NEG) Urine Bilirubin NEG (NEG) Urine Urobilinogen LESS THAN 2.0 MG/DL (LESS THAN 2.0) Urine Leukocyte Esterase TRACE (NEG) Urine RBC 3 /hpf (0-3) Urine WBC 1 /hpf (0-5) Urine Squamous Epithelial <1 /hpf (0-5) Cells Urine Bacteria RARE /hpf (NONE) Urine Granular Casts 2 /lpf (NONE) Microscopic Urinalysis Comment CATH-CULTURE IND Urine Random Creatinine 73.8 MG/DL Urine Random Sodium 84 MEQ/L White Blood Count 35.4 TH/MM3 38.4 TH/MM3 (4.0-11.0) (4.0-11.0) Red Blood Count 3.06 MIL/MM3 2.81 MIL/MM3 (4.50-5.90) (4.50-5.90) Hemoglobin 9.3 GM/DL 8.4 GM/DL (13.0-17.0) (13.0-17.0) Hematocrit 28.1 % 25.8 % (39.0-51.0) (39.0-51.0) Mean Corpuscular Volume 91.6 FL 91.8 FL (80.0-100.0) (80.0-100.0) Mean Corpuscular Hemoglobin 30.2 PG 29.9 PG (27.0-34.0) (27.0-34.0) Mean Corpuscular Hemoglobin 33.0 % 32.6 % Concent (32.0-36.0) (32.0-36.0) Red Cell Distribution Width 15.7 % 15.9 % (11.6-17.2) (11.6-17.2) Platelet Count 250 TH/MM3 233 TH/MM3 (150-450) (150-450) Mean Platelet Volume 7.9 FL 7.8 FL (7.0-11.0) (7.0-11.0) Neutrophils (%) (Auto) 90.1 % 92.9 % (16.0-70.0) (16.0-70.0) Lymphocytes (%) (Auto) 3.9 % 2.2 % (9.0-44.0) (9.0-44.0) Monocytes (%) (Auto) 3.7 % (0.0-8.0) 3.3 % (0.0-8.0) Eosinophils (%) (Auto) 2.2 % (0.0-4.0) 1.6 % (0.0-4.0) Basophils (%) (Auto) 0.1 % (0.0-2.0) 0.0 % (0.0-2.0) Neutrophils # (Auto) 31.9 TH/MM3 35.7 TH/MM3 (1.8-7.7) (1.8-7.7) Lymphocytes # (Auto) 1.4 TH/MM3 0.8 TH/MM3 (1.0-4.8) (1.0-4.8) Monocytes # (Auto) 1.3 TH/MM3 1.2 TH/MM3 (0-0.9) (0-0.9) Eosinophils # (Auto) 0.8 TH/MM3 0.6 TH/MM3 (0-0.4) (0-0.4) Basophils # (Auto) 0.0 TH/MM3 0.0 TH/MM3 (0-0.2) (0-0.2) CBC Comment AUTO DIFF AUTO DIFF Differential Total Cells 100 100 Counted Neutrophils % (Manual) 52 % (16-70) 65 % (16-70) Band Neutrophils % 32 % (0-6) 26 % (0-6) Lymphocytes % 7 % (9-44) 4 % (9-44) Monocytes % 7 % (0-8) 4 % (0-8) Eosinophils % 1 % (0-4) 1 % (0-4) Basophils % 1 % (0-2) Neutrophils # (Manual) 29.7 TH/MM3 34.9 TH/MM3 (1.8-7.7) (1.8-7.7) Differential Comment FINAL DIFF FINAL DIFF MANUAL MANUAL Toxic Granulation 1+ (NORMAL) 1+ (NORMAL) Platelet Estimate NORMAL NORMAL (NORMAL) (NORMAL) Platelet Morphology Comment NORMAL NORMAL (NORMAL) (NORMAL) Sodium Level 143 MEQ/L 143 MEQ/L (136-145) (136-145) Potassium Level 3.4 MEQ/L 3.8 MEQ/L (3.5-5.1) (3.5-5.1) Chloride Level 106 MEQ/L 109 MEQ/L (98-107) (98-107) Carbon Dioxide Level 24.2 MEQ/L 22.9 MEQ/L (21.0-32.0) (21.0-32.0) Anion Gap 13 MEQ/L (5-15) 11 MEQ/L (5-15) Blood Urea Nitrogen 16 MG/DL (7-18) 17 MG/DL (7-18) Creatinine 2.13 MG/DL 1.87 MG/DL (0.60-1.30) (0.60-1.30) Estimat Glomerular Filtration 33 ML/MIN (>89) 39 ML/MIN (>89) Rate Random Glucose 92 MG/DL 83 MG/DL (74-106) (74-106) Calcium Level 8.3 MG/DL 8.6 MG/DL (8.5-10.1) (8.5-10.1) Prothrombin Time 14.6 SEC 13.8 SEC (9.8-11.6) (9.8-11.6) Prothromb Time International 1.3 RATIO 1.2 RATIO Ratio Activated Partial 33.0 SEC 31.6 SEC Thromboplast Time (24.3-30.1) (24.3-30.1) Fibrinogen 432 mg/dL 474 mg/dL (181-393) (181-393) Toxic Vacuolation PRESENT (NONE SEEN) Result Diagram: 07/31/16 0612 07/31/16 0612 Microbiology Microbiology Date/Time Procedure Status Source Growth 07/29/16 13:35 Urine Culture - Final Complete Urine Clean Catch NO GROWTH IN 48 HOURS. 07/29/16 13:35 Cancelled Urine Clean Catch Procedures * Bilateral nephrostomy tube placement . Assessment and Plan Disease Oriented Problem List: (1) Invasive carcinoma of urinary bladder Comment: Imaging shows progression of disease in spite of aggressive treatment. Mets now apparent in pelvic lymph nodes, lungs, liver, and possible abdominal carcinomatosis. . (2) Bilateral hydronephrosis (3) Anemia due to blood loss (4) Hematuria (5) Intractable nausea and vomiting Comment: Improving with odansetron and with treatment of infection. . 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 . (7) Hypoalbuminemia Symptom Scale: (1) Pain 0-10 Scale: 8 Comment: Secondary to burden of disease. Extensive metastasis. . (2) Anxiety 0-10 Scale: Unable to quantify Comment: Exacerbated by pain, nausea/vomiting. Currently on Ativan around-the- clock. . (3) Nausea & vomiting 0-10 Scale: 10 Comment: Zofran as needed. Pertinent Non-Medical Issues Psychosocial: lives with his mother. Spiritual: [employer]. Legal: Patient is currently capacitated to make his own decisions. Patient completed living will and HCS. Named his mother, Laurie Kee as designated healthcare surrogate should he lose capacity. Ethical issues impacting care: No known concerns at this time. . Important Contacts * Laurie Henderson (mother and health care surrogate) -- [phone] . Prognosis Mr. Henderson has widely metastatic (pelvic lymph, lungs, liver, abdominal carcinomatosis) bladder cancer that has progressed in spite of aggressive care. His treatment course has been challenging due to recurrent hematuria and infection. Treatment options would all be palliative going forward. Dr. Lee has offered the possibility of a checkpoint inhibitor. The patient understands this might have a 20-30% chance of slowing progression and improving quality of his life. Mr. Henderson clearly understands there is no cure at this point. While he is hoping to try the new therapy and hoping he responds , he is quite clear that the does not want treatments that will just prolong an uncomfortable dying process. He is familiar with hospice which took care of his father and will want to transition to hospice care if he does not tolerate the offered treatment or disease continues to progress in spite of the new therapy. . Code Status: No Code Plan * CODE STATUS: NO CODE per patient wishes. [place] DNR given to patient. * DECISION-MAKING CAPACITY: Patient is currently capacitated to make his own health care decisions. Should he become incapacitated, he has designated his motherLaurie Suazo his health care surrogate. * GOALS OF CARE: No code. DNR/DNI. Comfort directed-care with hospice given terminal condition and increased burden of disease. Patient wishing to discharge to hospice care center for pain and symptom management. His mother is fully supportive of this decision. * =Pain, secondary to burden of disease. Pain regimen consistent on oxycodone 30 mg 12 hours ATC and hydromorphone by mouth 2 mg for moderate pain and 4 mg for severe pain every 4 hours as needed. Has required 2 doses of 4 mg yesterday and and 2 doses today. Hydromorphone 0.75 IV also available every 3 hours as needed for severe breakthrough pain. No further recommendations at this time, patient pending discharge to hospice care center for further pain management. * =Anxiety: Lorazepam 0.5 mg every 8 hours ATC. Lorazepam 0.5-1 mg available as needed for anxiety and shortness of breath. * =Nausea/vomiting: Intractable, not yet controlled. Zofran available as needed. No further recommendations at this time, patient pending discharge to hospice care center for further pain management. * Active listening and ongoing emotional support provided to patient and mother. * Anticipatory guidance provided. * Case discussed with GEOVANNY Hummel -oncology and director hospice operations. * Palliative care will continue to follow to assist with symptom management and to further clarify goals of medical treatment as the clinical course evolves. . Time Spent Total Floor Time (mins): 45 (Total time to include review and summarization of available medical records, physical exam, goals of care conversation with patient and his mother, case discussion with oncology and director hospice operations.) >50% Counseling/Coord of Care: Yes Attestation To help prompt me to consider important information that might be impacting today's encounter and assessment, information from prior notes written by myself or my colleagues may have been "brought forward" into today's note. My signature on this note, however, is an attestation that I personally performed the exam, history, and/or decision-making noted today, and, unless otherwise indicated, the interactions with patient, family, and staff as well as the review of records all occurred today. I also attest that the listed assessment and stated plan reflect my best clinical judgment today based on the combination of historical information, prior notes, and today's exam/ interactions. When time spent is documented, it refers only to time spent today by the signer, or if indicated, combined time spent today by collaborating physician/nurse practitioner. Krista Hills Aug 01, 2016 11:36
[2016-08-01 12:00] VITALS: BP 121/66; PULSE 88; RESP 20; TEMP 98.3; O2SAT 97
--- NOTE | 2016-08-01 12:22 | HHI.PR ---
Subjective Remarks looking forward to going to Hospice care center mild abdominal/flank discomfort no nausea or vomiting Objective Vitals Vital Signs Date Time Temp Pulse Resp B/P Pulse Ox O2 Delivery O2 Flow Rate FiO2 08/01/16 09:00 Room Air 08/01/16 08:00 97.8 76 12 105/56 97 08/01/16 04:00 98.2 83 18 107/56 97 08/01/16 00:00 99.4 123 18 126/61 95 07/31/16 20:22 Room Air 07/31/16 20:00 98.0 110 18 129/59 97 07/31/16 16:00 99.0 82 18 112/55 96 I/O 07/31/16 07/31/16 07/31/16 08/01/16 08/01/16 08/01/16 07:00 15:00 23:00 07:00 15:00 23:00 Intake Total 924 ml 1688 ml 120 ml 480 ml Output Total 500 ml 1000 ml 600 ml 500 ml Balance 424 ml 688 ml -480 ml -20 ml Intake Oral 100 ml 480 ml 120 ml 480 ml IV Total 824 ml 1208 ml Output Urine Total 500 ml 1000 ml 600 ml 500 ml # Bowel Movements 0 1 0 Result Diagram: 07/31/16 0612 07/31/16 0612 Imaging Last Impressions Renal Ultrasound 07/30/16 0000 Signed Impressions: Service Date/Time: Saturday, July 30, 2016 12:39 - CONCLUSION: 1. Normal appearance of the kidneys. 2. Hepatic masses and masses in the soft tissues in the pelvis. The patient had masses seen on the prior CT examination. Ochoa Oconnor MD Lung Scan- Nuclear Medicine 07/30/16 0000 Signed Impressions: Service Date/Time: Saturday, July 30, 2016 14:46 - CONCLUSION: 1. No evidence of pulmonary embolus. Study is low probability. 2. Suspected fibrin sheath near the tip of the right internal jugular [id number] catheter. Ochoa Bae MD Chest X-Ray 07/30/16 0000 Signed Impressions: Service Date/Time: Saturday, July 30, 2016 09:48 - CONCLUSION: No acute disease. Ochoa Oconnor MD Abdomen X-Ray 07/30/16 0000 Signed Impressions: Service Date/Time: Saturday, July 30, 2016 13:33 - CONCLUSION: Bilateral ureteral stents in place through an ileal loop in the right lower quadrant. Ochoa Oconnor MD Lower Extremity Ultrasound 07/28/16 0000 Signed Impressions: Service Date/Time: July 11:27 - CONCLUSION: No evidence of DVT. Mraio Calix MD Abdomen/Pelvis CT 07/24/16 0000 Signed Impressions: Service Date/Time: Monday, July 25, 2016 00:55 - CONCLUSION: 1. Interval development of extensive metastases. In addition to the bulky mass lesions in the urinary bladder bed, there are now large omental and mesenteric masses with central necrosis, retroperitoneal and anterior abdominal wall metastatic deposits with extensive metastasis to the liver. 2. Interval placement of bilateral nephrostomy tubes with decompression of the previously hydronephrotic kidneys. Preston Ewing MD ADDENDUM: COMPARISON: CT ABDOMEN & PELVIS W & W/O CONTRAST, July 13, 2016, 13:43. It has been brought to our attention that a more recent comparison study is available. The liver lesions are stable in number but they have increased in size. In particular a anterior right lobe liver lesion currently measures 2.2 x 1.9 cm compared to 1.8 x 1.4 cm previously. Also, there are 2 lesions near the dome that measure approximately 13 mm each that were previously barely visible measuring approximately 8 mm. No new liver lesion is identified. There is a extrahepatic mass abutting the right lobe of the liver that currently measures 7.8 x 4.1 cm compared to 5.6 x 3.4 cm previously. Throughout the abdomen and pelvis there are multiple peritoneal based masses that have also increased in size. In particular the mass in the right lower quadrant in the iliac fossa measures 9.5 x 6.3 cm compared to 8.0 x 5.6 cm previously. Another index lesion in the left mid abdomen anteriorly measures 7.3 x 7.1 cm compared to 4.2 x 3.2 cm previously. Multiple pelvic soft tissue masses are present and these have also increased in size. In the left inferior pelvis a mass currently measures 7.0 x 5.4 cm compared to 4.6 x 4.9 cm previously. Please see above for description of the remaining findings. IMPRESSION: Comparison was made to the more recent prior examination dated 07/13/2016. As described above, the multiple liver lesions and solid masses within the abdomen and pelvis have increased in size. Index measurements are given above. Findings are indicative of interval progression of disease. Ochoa Roberson MD Nephrostomy 07/22/16 0000 Signed Impressions: Service Date/Time: Friday, July 22, 2016 09:43 - CONCLUSION: Uncomplicated right nephrostomy tube placement as above. The collecting system is grossly dilated. The urine was turbid and therefore sent for microbiological evaluation. Several days of decompression can be performed and then attempts at placement of ureteral stent with extension through the ileal conduit stoma. I spoke with Dr. Lee concerning this. Jesus Perez Jr., MD Renal Scan w/Medication NM 07/20/16 0000 Signed Impressions: Service Date/Time: Wednesday, July 20, 2016 15:34 - CONCLUSION: High grade obstruction on the right with partial obstruction on the left. Abdullahi Dos Santos MD Objective Remarks awake and alert lungs - no rales or wheezes regular rhythm abdomen- urostomy bag in place- draining grossly clear urine 'extremities no edema Procedures 3/3 bilateral nephrostomy tube placement A/P Problem List: (1) Sepsis ICD Code: A41.9 Status: Acute (2) Leucocytosis ICD Code: D72.829 Status: Acute (3) Bilateral hydronephrosis ICD Code: N13.30 Status: Chronic (4) Urinary tract infection ICD Code: N39.0 Status: Acute (5) Invasive carcinoma of urinary bladder ICD Code: C67.9 Status: Chronic Assessment and Plan 50 y/o man with invasive bladder cancer, with progression to metastatic disease admitted for urosepsis/gm neg trinity, with recurrent fevers, and now with abdominal pain and vomiting. 1. Abd pain with N/V: abdominal mets are present, concern for bowel obstruction clinically improved. Diet as tolerated 2. Fevers with leukocytosis: Tumor Fever. Recurrent fevers last 07/29/2016. No current signs of infection. At this point is likely secondary to necrotic metastases. On zosyn and Vanco Urine culture no growth to date, blood cultures no growth x6. 3. AK I: secondary to obstruction. trending down. non oliguric 4. Mild nutrition: Dietary following 5. Invasive bladder carcinoma with hydronephrosis: Currently being followed by urology, palliative care, and heme/onc. Palliative care assisting with pain management. Hospice ff. For transfer to Hospice Care center today 6. Acute on chronic anemia: Status post 3 units packed red blood cells. Hemoglobin currently stable. 7. Right lower extremity edema-improved. No DVT on Doppler Discharge to Hospice care center today Problem Qualifiers (1) Sepsis: Qualified Code: A41.9 - Sepsis, due to unspecified organism (2) Leucocytosis: Qualified Code: D72.829 - Leukocytosis, unspecified type Mirella Conde MD Aug 01, 2016 12:22
--- NOTE | 2016-08-01 12:47 | HHI.DS ---
Discharge Summary Admission Date Jul 19, 2016 at 17:13 Discharge Date: Aug 01, 2016 Admitting Diagnosis sepsis (1) Sepsis ICD Code: A41.9 Diagnosis: Principal (2) Invasive carcinoma of urinary bladder ICD Code: C67.9 Diagnosis: Secondary (3) Leucocytosis ICD Code: D72.829 Diagnosis: Principal (4) Bilateral hydronephrosis ICD Code: N13.30 Diagnosis: Principal (5) Urinary tract infection ICD Code: N39.0 Diagnosis: Principal Procedures 3/3 bilateral nephrostomy tube placement Brief History - From Admission 50-year-old rather unfortunate male with known history of metastatic invasive carcinoma the urinary bladder who presented to hospital because of abdominal fullness and flank pain. Patient states it is undergoing outpatient management with urology. He has undergone urostomy, bladder removal. He did have recent CT scan done, however he has not had follow-up for results at this time. However over the last few days he noticed that he is experiencing some back pain. He has had previous infection before in he is well aware of the pain that he experiences. This is the same time of pain that he had so he came to the hospital for evaluation. Patient had workup done emergency department found to have sepsis with leukocytosis, sinus tachycardia, urinary tract infection. Patient started on empirical antibiotics to include vancomycin, cefepime. Is recommended by ER physician the patient be admitted for further evaluation management. CBC/BMP: 07/31/16 0612 07/31/16 0612 Significant Findings Laboratory Tests Test 07/29/16 07/30/16 07/30/16 07/31/16 13:35 05:50 14:30 06:12 Urine Protein 30 mg/dL (NEG-TRACE) Urine Occult Blood MOD (NEG) Urine Leukocyte Esterase TRACE (NEG) Urine Bacteria RARE /hpf (NONE) White Blood Count 35.4 TH/MM3 38.4 TH/MM3 (4.0-11.0) (4.0-11.0) Red Blood Count 3.06 MIL/MM3 2.81 MIL/MM3 (4.50-5.90) (4.50-5.90) Hemoglobin 9.3 GM/DL 8.4 GM/DL (13.0-17.0) (13.0-17.0) Hematocrit 28.1 % 25.8 % (39.0-51.0) (39.0-51.0) Neutrophils (%) (Auto) 90.1 % 92.9 % (16.0-70.0) (16.0-70.0) Lymphocytes (%) (Auto) 3.9 % 2.2 % (9.0-44.0) (9.0-44.0) Neutrophils # (Auto) 31.9 TH/MM3 35.7 TH/MM3 (1.8-7.7) (1.8-7.7) Monocytes # (Auto) 1.3 TH/MM3 1.2 TH/MM3 (0-0.9) (0-0.9) Eosinophils # (Auto) 0.8 TH/MM3 0.6 TH/MM3 (0-0.4) (0-0.4) Band Neutrophils % 32 % (0-6) 26 % (0-6) Lymphocytes % 7 % (9-44) 4 % (9-44) Neutrophils # (Manual) 29.7 TH/MM3 34.9 TH/MM3 (1.8-7.7) (1.8-7.7) Toxic Granulation 1+ (NORMAL) 1+ (NORMAL) Potassium Level 3.4 MEQ/L (3.5-5.1) Creatinine 2.13 MG/DL 1.87 MG/DL (0.60-1.30) (0.60-1.30) Estimat Glomerular Filtration 33 ML/MIN (>89) 39 ML/MIN (>89) Rate Calcium Level 8.3 MG/DL (8.5-10.1) Prothrombin Time 14.6 SEC 13.8 SEC (9.8-11.6) (9.8-11.6) Activated Partial 33.0 SEC 31.6 SEC Thromboplast Time (24.3-30.1) (24.3-30.1) Fibrinogen 432 mg/dL 474 mg/dL (181-393) (181-393) Lymphocytes # (Auto) 0.8 TH/MM3 (1.0-4.8) Toxic Vacuolation PRESENT (NONE SEEN) Chloride Level 109 MEQ/L (98-107) Imaging Last Impressions Renal Ultrasound 07/30/16 0000 Signed Impressions: Service Date/Time: Saturday, July 30, 2016 12:39 - CONCLUSION: 1. Normal appearance of the kidneys. 2. Hepatic masses and masses in the soft tissues in the pelvis. The patient had masses seen on the prior CT examination. Ochoa Oconnor MD Lung Scan-VQ Nuclear Medicine 07/30/16 0000 Signed Impressions: Service Date/Time: Saturday, July 30, 2016 14:46 - CONCLUSION: 1. No evidence of pulmonary embolus. Study is low probability. 2. Suspected fibrin sheath near the tip of the right internal jugular Jrapts-d-Ilpr catheter. Ochoa Bae MD Chest X-Ray 07/30/16 0000 Signed Impressions: Service Date/Time: Saturday, July 30, 2016 09:48 - CONCLUSION: No acute disease. Ochoa Oconnor MD Abdomen X-Ray 07/30/16 0000 Signed Impressions: Service Date/Time: Saturday, July 30, 2016 13:33 - CONCLUSION: Bilateral ureteral stents in place through an ileal loop in the right lower quadrant. Ochoa Oconnor MD Lower Extremity Ultrasound 07/28/16 0000 Signed Impressions: Service Date/Time: July 11:27 - CONCLUSION: No evidence of DVT. Mario Calix MD Abdomen/Pelvis CT 07/24/16 0000 Signed Impressions: Service Date/Time: Monday, July 25, 2016 00:55 - CONCLUSION: 1. Interval development of extensive metastases. In addition to the bulky mass lesions in the urinary bladder bed, there are now large omental and mesenteric masses with central necrosis, retroperitoneal and anterior abdominal wall metastatic deposits with extensive metastasis to the liver. 2. Interval placement of bilateral nephrostomy tubes with decompression of the previously hydronephrotic kidneys. Preston wEing MD ADDENDUM: COMPARISON: CT ABDOMEN & PELVIS W & W/O CONTRAST, July 13, 2016, 13:43. It has been brought to our attention that a more recent comparison study is available. The liver lesions are stable in number but they have increased in size. In particular a anterior right lobe liver lesion currently measures 2.2 x 1.9 cm compared to 1.8 x 1.4 cm previously. Also, there are 2 lesions near the dome that measure approximately 13 mm each that were previously barely visible measuring approximately 8 mm. No new liver lesion is identified. There is a extrahepatic mass abutting the right lobe of the liver that currently measures 7.8 x 4.1 cm compared to 5.6 x 3.4 cm previously. Throughout the abdomen and pelvis there are multiple peritoneal based masses that have also increased in size. In particular the mass in the right lower quadrant in the iliac fossa measures 9.5 x 6.3 cm compared to 8.0 x 5.6 cm previously. Another index lesion in the left mid abdomen anteriorly measures 7.3 x 7.1 cm compared to 4.2 x 3.2 cm previously. Multiple pelvic soft tissue masses are present and these have also increased in size. In the left inferior pelvis a mass currently measures 7.0 x 5.4 cm compared to 4.6 x 4.9 cm previously. Please see above for description of the remaining findings. IMPRESSION: Comparison was made to the more recent prior examination dated 07/13/2016. As described above, the multiple liver lesions and solid masses within the abdomen and pelvis have increased in size. Index measurements are given above. Findings are indicative of interval progression of disease. Ochoa Roberson MD Nephrostomy 07/22/16 0000 Signed Impressions: Service Date/Time: Friday, July 22, 2016 09:43 - CONCLUSION: Uncomplicated right nephrostomy tube placement as above. The collecting system is grossly dilated. The urine was turbid and therefore sent for microbiological evaluation. Several days of decompression can be performed and then attempts at placement of ureteral stent with extension through the ileal conduit stoma. I spoke with Dr. Lee concerning this. Jesus Perez Jr., MD Renal Scan w/Medication NM 07/20/16 0000 Signed Impressions: Service Date/Time: Wednesday, July 20, 2016 15:34 - CONCLUSION: High grade obstruction on the right with partial obstruction on the left. Abdullahi Dos Santos MD PE at Discharge awake and alert lungs - no rales or wheezes regular rhythm abdomen- urostomy bag in place- draining grossly clear urine 'extremities no edema Hospital Course 50 y/o man with invasive bladder cancer, with progression to metastatic disease admitted for urosepsis/gm neg trinity, with recurrent fevers, and now with abdominal pain and vomiting. 1. Abd pain with N/V: abdominal mets are present, concern for bowel obstruction clinically improved. Diet as tolerated 2. Fevers with leukocytosis: Tumor Fever. Recurrent fevers last 07/29/2016. No current signs of infection. At this point is likely secondary to necrotic metastases. On zosyn and Vanco Urine culture no growth to date, blood cultures no growth x6. 3. AK I: secondary to obstruction. trending down. non oliguric 4. Mild nutrition: Dietary following 5. Invasive bladder carcinoma with hydronephrosis: Currently being followed by urology, palliative care, and heme/onc. Palliative care assisting with pain management. Hospice ff. For transfer to Hospice Care center today 6. Acute on chronic anemia: Status post 3 units packed red blood cells. Hemoglobin currently stable. 7. Right lower extremity edema-improved. No DVT on Doppler Discharge to Hospice care center today Pt Condition on Discharge: Guarded Discharge Disposition: Hospice/Med Facility Discharge Time: > 30 minutes Discharge Instructions DIET: Follow Instructions for: As Tolerated, No Restrictions Speech Therapy-Diet Recommends: Regular Activities you can perform: Weight Bearing as Mirella Manning MD Aug 01, 2016 12:47
--- NOTE | 2016-08-08 15:30 | RADRPT ---
EXAM DATE/TIME: 07/27/2016 12:31 [facility] COMPARISON: No previous studies available for comparison. INDICATIONS : Patient with metastatic invasive carcinoma of the bladder in need of ureteral-intestinal stents. MEDICAL HISTORY : Invasive bladder cancer, HTN, Neurogenic bladder, Spinal tumor SURGICAL HISTORY : Spinal tumor resection, Bladder resection, Radical cystoprostatectomy with bilateral pelvis lymph nod e dissection and creation of ileal conduit ENCOUNTER: Subsequent ACUITY: 3 weeks PAIN SCORE: 5/10 LOCATION: Abdomen FLUORO TIME: 31 minutes IMAGE SERIES: 2 SEDATION TIME: 135 minutes CONTRAST: 30 cc Omnipaque (iohexol) 350 MEDICATION(S): 1.) 8 mg midazolam (Versed) IV 2.) 400 mcg fentanyl (Sublimaze) IV DEVICE(S): 1.) 8 Bangladeshi X90CM Silicone Uretero-Intestinal Anastomosis Urinary Diversion stent PROCEDURE : 1. Percutaneous antegrade pyelogram 2. left ureteral stent placement 3. Conscious sedation with continuous EKG and oximetry monitoring The risks, benefits and alternatives to the procedure were explained and verbal and written consent w as obtained. The site was prepped in sterile fashion. Full sterile technique was used, including ca p, mask, sterile gloves and gown and a large sterile sheet. Hand hygiene and 2% chlorhexidine and/or betadine/alcohol prep was utilized per protocol for cutaneous antisepsis. The skin and subcutaneous tissues were infiltrated with local anesthetic solution. A hydrophilic guidewire was introduced through the existing left nephrostomy tube and manipulated sabina n the left ureter. The nephrostomy tube was removed intact. With the assistance of an angled catheter , the guidewire was manipulated down through the ureter, through the patient's continent urinary dive rsion and out into the patient's right lower quadrant urostomy pouch. The guidewire was then secured within the pouch and at the left flank skin surface with hemostats. During the second phase of the procedure, we worked from the pouch direction. An angled catheter was fed retrograde up the left ureter and into the left renal pelvis. The wire was removed from the flank and a second wire was placed antegrade from the urostomy site up into the left renal pelvis. Under d irect fluoroscopic guidance a 8 Bangladeshi 90 cm ureteral intestinal anastomosis urinary diversion stent was inserted. The distal tip of the loop portion of the stent was cut to allow coaxial placement over the guidewire. The stent was formed up with retention loop in the left renal pelvis with the hub por tion of the catheter extending out into the patient's pouch. Conscious sedation was performed with the prescribed dosages and duration as above in the presence of an independent trained radiology nurse to assist in the monitoring of the patient. EKG and oximetry remained stable throughout the procedure. The patient tolerated the procedure well and there were no complications. CONCLUSION: Left ureteral stent placement as described in detail above.. Ochoa Crow MD on August 08, 2016 at 15:23 Board Certified Radiologist. This report was verified electronically.
--- NOTE | 2016-08-08 15:35 | RADRPT ---
EXAM DATE/TIME: 07/27/2016 12:31 [facility] COMPARISON: URETERAL STENT THRU EXIST NEPH, July 27, 2016, 12:31. INDICATIONS : Patient with metastatic invasive carcinoma of the bladder in need of ureteral-intestinal stents. MEDICAL HISTORY : Invasive bladder cancer, HTN, Neurogenic bladder, Spinal tumor SURGICAL HISTORY : Spinal tumor resection, Bladder resection, Radical cystoprostatectomy with bilateral pelvis lymph nod e dissection and creation of ileal conduit ENCOUNTER: Subsequent ACUITY: 3 weeks PAIN SCORE: 5/10 LOCATION: Abdomen FLUORO TIME: 31 minutes IMAGE SERIES: 2 SEDATION TIME: 135 minutes CONTRAST: 30 cc Omnipaque (iohexol) 350 MEDICATION(S): 1.) 8 mg midazolam (Versed) IV 2.) 400 mcg fentanyl (Sublimaze) IV DEVICE(S): 1.) [id number] Silicone Uretero-Intestinal Anastomosis Urinary Diversion stent PROCEDURE : 1. Percutaneous antegrade pyelogram 2. right ureteral stent placement 3. Conscious sedation with continuous EKG and oximetry monitoring The risks, benefits and alternatives to the procedure were explained and verbal and written consent w as obtained. The site was prepped in sterile fashion. Full sterile technique was used, including ca p, mask, sterile gloves and gown and a large sterile sheet. Hand hygiene and 2% chlorhexidine and/or betadine/alcohol prep was utilized per protocol for cutaneous antisepsis. The skin and subcutaneous tissues were infiltrated with local anesthetic solution. A hydrophilic guidewire was introduced through the existing right nephrostomy tube and manipulated do wn the Right ureter. The nephrostomy tube was removed intact. With the assistance of an angled catheter, the guidewire was manipulated down through the ureter, through the patient's continent urinary diversion and out in to the patient's right lower quadrant urostomy pouch. The guidewire was then secured within the pouch and at the right flank skin surface with hemostats. During the second phase of the procedure, we worked from the pouch direction. An angled catheter was fed retrograde up the right ureter and into the right renal pelvis. The wire was removed from the flank a nd a second wire was placed antegrade from the urostomy site up into the right renal pelvis. Under di rect fluoroscopic guidance a 8 Urdu 90 cm ureteral intestinal anastomosis urinary diversion stent w as inserted. The distal tip of the loop portion of the stent was cut to allow coaxial placement over the guidewire. The stent was formed up with retention loop in the right renal pelvis with the hub portion of the catheter extending out into the patient's pouch. Conscious sedation was performed with the prescribed dosages and duration as above in the presence of an independent trained radiology nurse to assist in the monitoring of the patient. EKG and oximetry remained stable throughout the procedure. The patient tolerated the procedure well and there were no complications. CONCLUSION: Uncomplicated right ureteral stent placement as above. Ochoa Crow MD on August 08, 2016 at 15:29 Board Certified Radiologist. This report was verified electronically.
== END 2016-08-01 14:50 | disposition hospice, inpatient (51) | DRG 686 ==
LOC: PHED 14:40 → PHEDA 17:13 → PH3A 18:50 → N04A 07-21 02:20
PROVIDERS: ADMIT Internal Medicine; ATTEND Internal Medicine
PROC: 0T9130Z Drainage of Left Kidney with Drainage Device, Percutaneous Approach (ICD-10-PCS; principal; 2016-07-22)
PROC: 0T9030Z Drainage of Right Kidney with Drainage Device, Percutaneous Approach (ICD-10-PCS; 2016-07-22)
PROC: 30233N1 Transfusion of Nonautologous Red Blood Cells into Peripheral Vein, Percutaneous Approach (ICD-10-PCS; 2016-07-24)
PROC: 0T787DZ Dilation of Bilateral Ureters with Intraluminal Device, Via Natural or Artificial Opening (ICD-10-PCS; 2016-07-27)
DX: C67.9 Malignant neoplasm of bladder, unspecified (principal); A41.50 Gram-negative sepsis, unspecified; D68.9 Coagulation defect, unspecified; N17.9 Acute kidney failure, unspecified; C77.5 Secondary and unspecified malignant neoplasm of intrapelvic lymph nodes; Z51.5 Encounter for palliative care; C78.01 Secondary malignant neoplasm of right lung; C78.02 Secondary malignant neoplasm of left lung; R65.20 Severe sepsis without septic shock; E87.2 Acidosis; N13.1 Hydronephrosis with ureteral stricture, not elsewhere classified; C78.6 Secondary malignant neoplasm of retroperitoneum and peritoneum; C79.51 Secondary malignant neoplasm of bone; C78.7 Secondary malignant neoplasm of liver and intrahepatic bile duct; N39.0 Urinary tract infection, site not specified; E46 Unspecified protein-calorie malnutrition; E88.09 Other disorders of plasma-protein metabolism, not elsewhere classified; N31.9 Neuromuscular dysfunction of bladder, unspecified; F41.9 Anxiety disorder, unspecified; Z66 Do not resuscitate; I12.9 Hypertensive chronic kidney disease with stage 1 through stage 4 chronic kidney disease, or unspecified chronic kidney disease; N18.9 Chronic kidney disease, unspecified; D50.0 Iron deficiency anemia secondary to blood loss (chronic); G89.29 Other chronic pain; E87.6 Hypokalemia; R50.81 Fever presenting with conditions classified elsewhere; R60.0 Localized edema; Z80.7 Family history of other malignant neoplasms of lymphoid, hematopoietic and related tissues; Z68.20 Body mass index [BMI] 20.0-20.9, adult; Z87.891 Personal history of nicotine dependence; Z92.21 Personal history of antineoplastic chemotherapy
CPT/HCPCS: 36430; 50432; 50693; 71010; 74000; 74177; 76775; 78582; 78708; 80048; 80053; 80069; 80202; 81001; 82565; 82570; 82728; 83540; 83550; 83605; 83690; 83735; 84300; 85007; 85014; 85018; 85025; 85027; 85384; 85610; 85730; 86850; 86900; 86901; 86920; 87040; 87070; 87077; 87086; 87176; 87186; 87205; 93005; 93970; 96365; 96375; 99152; 99153; A9539; A9540; A9567; C1729; C1769; C1887; C1894; C2617; J0692; J1170; J1650; J1940; J2250; J2405; J2543; J3010; J3370; J3475; J7030; J7040; J7050; P9016; Q9963; Q9967